=== PATIENT | female | born 1955 | race Caucasian/White ===

== ENCOUNTER → 2021-10-01 08:43 | Outpatient (CLI) | payer MEDICARE, SELFPAY ==
[2021-10-01 20:26] LABS: SARS-CoV-2 RNA PCR Negative
== END ==
PROVIDERS: PCP Physician Assistant; Visit Provider Physician Assistant
DX: R50.9 Fever, unspecified (principal); Z20.822 Contact with and (suspected) exposure to COVID-19
CPT/HCPCS: C9803; U0003; U0005

== ENCOUNTER 2021-12-04 06:32 | Outpatient (CLI) | payer MEDICARE, SELFPAY ==
--- NOTE | ~2021-12-04 | MR_ITS ---
EXAMINATION: MR thoracic spine wo con EXAM DATE: 12/04/2021 07:38 INDICATION: Complains of pain in thoracic spine radiating to abdomen . TECHNIQUE: Multi-sequential, multiplanar MR images of the thoracic spine were obtained without contra st. Sagittal T1, T2, T2 fat saturation, axial T2 weighted images reviewed. There is no prior study for comparison. FINDINGS: There is moderate size hemangioma within the T8 vertebral body. Small hemangioma in T12. No suspicious focal marrow signal abnormalities. Thoracic central canal and neural foramen are widely p atent. Mild thoracic disc disease and facet arthropathy. The spinal cord signal intensity and intrins ic morphology is normal. Paraspinal soft tissue is unremarkable. IMPRESSION: Mild thoracic spondylosis without stenosis. Reviewed, dictated and finalized at location B. [employer]PRESENTATIVE
== END 2021-12-04 06:33 | disposition home or self-care (01) ==
PROVIDERS: PCP Physician Assistant; Visit Provider Psychiatry & Neurology Neurology
DX: M54.9 Dorsalgia, unspecified (principal); M47.814 Spondylosis without myelopathy or radiculopathy, thoracic region
CPT/HCPCS: 72146

== ENCOUNTER 2021-12-12 06:34 | Outpatient (CLI) | payer MEDICARE, SELFPAY ==
--- NOTE | 2021-12-15 10:16 | WPDNEUROLOGY ---
Neurology EEG Report General Information Date of Study: 12/12/21 TEST eeg DIAGNOSIS Seizures CONDITION OF RECORDING awake and drowsy EEG NUMBER [id number] CLINICAL HISTORY patient reported about 3 years ago she started having headaches and losing consciousness. She reported she had an abnormal EEG done at [facility] at that particular time. Reported she is still having the same episodes. EEG DESCRIPTION Basic resting occipital frequency consists of medium voltage 8 to 9 hertz per 2nd alpha admixed with low-voltage 15 to 18 hertz per 2nd beta. Bilateral, waxing and waning alpha rhythm is seen admixed with beta activity during drowsiness. Photic stimulation produced normal drive. Hyperventilation not done. Non paroxysmal. Nonfocal. Nonlateralizing. IMPRESSION No significant abnormalities noted
== END 2021-12-12 06:35 | disposition home or self-care (01) ==
PROVIDERS: PCP Physician Assistant; Visit Provider Psychiatry & Neurology Neurology
DX: R56.9 Unspecified convulsions (principal)
CPT/HCPCS: 95816

== ENCOUNTER 2022-01-21 06:35 | Outpatient (CLI) | payer MEDICARE, SELFPAY ==
--- NOTE | ~2022-01-21 | MR_ITS ---
EXAMINATION: MR knee RT wo con DATE: 01/21/2022 08:04 INDICATION: Right knee pain TECHNIQUE: Magnetic resonance imaging (MRI) of the right knee was performed without intravenous contr ast. Sequences included coronal PD-weighted FSE, coronal PD-weighted FS FSE, sagittal T2-weighted FS E, sagittal PD-weighted FS FSE and axial PD weighted fat saturated FSE. COMPARISON: None. FINDINGS: Medial compartment: Complex tear involving the inner half the junction of the body and posterior horn of the medial menis cus. Partial-thickness chondral ulceration along the anterior weightbearing medial femoral condyle an d anterolateral aspect of the medial tibial plateau without degenerative subchondral changes. Lateral compartment: Lateral meniscus is normal. Partial-thickness chondral fissure at the central aspect of the lateral t ibial plateau which appears to involve at least 50% the cartilage thickness but without degenerative subchondral changes. Shallow chondral surface regularity along the anterior weightbearing lateral fem oral condyle. Patellofemoral compartment: Deep chondral fissuring with underlying cystlike changes at the central aspect of the medial patellar facet. Small central subchondral osteophyte at the inferior aspect of the medial trochlea suggesting overlying high-grade chondromalacia however the margins of the cartilage are poorly delineated at th is location due to oblique profiling on the coronal and axial images and small amount of motion blurr ing on the sagittal images. Ligaments and tendons: Anterior and posterior cruciate ligaments are normal. The medial collateral ligament and fibular aria ateral ligament complex are normal. The extensor mechanism is normal. The visualized medial and later al hamstring tendons as well as the iliotibial band are normal. Fluid: Small right knee joint effusion at the suprapatellar pouch. No loose osteochondral bodies identified. Small Martin's cyst. Osseous/other: No fracture. 7 x 5 x 5 mm T2 hyperintense lesion along the posterior medial supracondylar femur near the footplate of the medial head of the gastrocnemius muscle. IMPRESSION: 1. Complex medial meniscal tear. 2. Mild tricompartmental osteoarthritis with regions of high-grade chondral malacia in the patellofem oral compartment and moderate grade chondral malacia in the medial and lateral compartments. 3. Small right knee joint effusion and small Martin's cyst. 4. Nonspecific 7 x 5 x 5 mm T2 hyperintense lesion at the posterior medial supracondylar femur. Appea hitesh suggestive of small enchondroma but would recommend correlation with plain radiographs to asses s for either chondroid matrix or any aggressive features. Reviewed, dictated and finalized at location A. IMPRESSION: 1. Complex medial meniscal tear. 2. Mild tricompartmental osteoarthritis with regions of high-grade chondral mal acia in the patellofemoral compartment and moderate grade chondral malacia in t he medial and lateral compartments. 3. Small right knee joint effusion and small Martin's cyst. 4. Nonspecific 7 x 5 x 5 mm T2 hyperintense lesion at the posterior medial supr acondylar femur. Appearance suggestive of small enchondroma but would recommend correlation with plain radiographs to assess for either chondroid matrix or an y aggressive features.
== END 2022-01-21 06:36 | disposition home or self-care (01) ==
PROVIDERS: PCP Physician Assistant; Visit Provider Orthopaedic Surgery
DX: S83.231A Complex tear of medial meniscus, current injury, right knee, initial encounter (principal); M25.761 Osteophyte, right knee; M17.11 Unilateral primary osteoarthritis, right knee; M25.461 Effusion, right knee; M71.21 Synovial cyst of popliteal space [Baker], right knee
CPT/HCPCS: 73721

== ENCOUNTER 2022-02-05 08:26 | Outpatient (CLI) | payer MEDICARE, SELFPAY ==
--- NOTE | 2022-02-05 08:33 | ECG_ITS ---
Measurements Intervals [place] Rate: 71 P: 61 SD: 149 QRS: -13 QRSD: 128 T: 64 QT: 422 QTc: 460 Interpretive Statements SINUS RHYTHM MODERATE INTRAVENTRICULAR CONDUCTION DELAY [110+ ms QRS DURATION] LEFTWARD AXIS ABNORMAL ECG NO PREVIOUS ECG AVAILABLE FOR COMPARISON Electronically Signed On 02-05-2022 16:54:24 CDT by Yifan Whitaker M.D.
[2022-02-05 09:12] LABS: Anion Gap 3 mmol/L (8-16); Blood Urea Nitrogen 15 mg/dL (7-17); Calcium 9.2 mg/dL (8.4-10.2); Carbon Dioxide 33 mmol/L (22-30); Chloride 104 mmol/L (98-107); Estimated Glomerular Filt Rate 55; Glucose 114 mg/dL (65-110); Potassium 4.1 mmol/L (3.4-5.0); Sodium 140 mmol/L (137-145)
== END 2022-02-05 08:27 | disposition home or self-care (01) ==
PROVIDERS: Anesthesiology; PCP Physician Assistant; Visit Provider Orthopaedic Surgery
DX: Z01.818 Encounter for other preprocedural examination (principal); Z51.81 Encounter for therapeutic drug level monitoring; Z79.899 Other long term (current) drug therapy; I45.89 Other specified conduction disorders; I10 Essential (primary) hypertension
CPT/HCPCS: 36415; 80048; 93005

== ENCOUNTER 2022-02-09 01:21 | Day surgery (SDC) | payer MEDICARE, SELFPAY ==
[2022-02-04 11:24] VITALS: BMI 32.3
--- NOTE | 2022-02-04 11:56 | PC.NURSE ---
Report to the Outpatient Waiting Room, entrance under the green pavilion located off [facility], at time _10:00AM on date _02/09/22 . OR Time: _12:00PM . - You and your visitor will be asked a series of questions to screen for COVID 19 for your protection. - A mask is required within the hospital. Preoperative COVID Testing Requirements: No COVID Test needed if: (proof is required; if not received patient will have Rapid Test prior to entry) - Patient has received COVID Vaccine at least 14 days prior to procedure date or - Patient has positive COVID test result within last 90 days of surgery date. COVID Test needed if above criteria is not met If not COVID vaccinated a COVID test must be conducted within 72 hours of surgery and patient is asked to isolate self from time of testing until procedure. You will go to the [facility] for your COVID testing. The [facility] is located at the corner of [address] from [facility]. You will only be called if COVID results are positive and your surgeon may reschedule your elective surgery date. Patients may have clear liquids (water, carbonated beverages, clear teas, apple juice) until 3 hours prior to surgery with a maximum of 20 ounces. - No food from midnight until time of surgery - Infants may have breast milk until 4 hours before surgery, infant formula 6 hours prior to surgery. - Children will be allowed to drink immediately following surgery. If applicable, please bring a bottle or sippy cup to assist with drinking. Juice, water, soda, and popsicles are readily available. For infants on formula, please bring formula the day of surgery. Pacifiers are allowed. Take the following medications with a SIP of water the morning of surgery: ___SYMBICORT, ALBUTEROL INHALER OR NEBULIZER NEEDED, CITALOPRAM Medications to discontinue per physician HOLD MELOXICAM 7 DAYS PRE-OP-LAST DOSE 02/02/22, ALL VITAMINS/SUPPLEMENTS 3 DAYS PRE-OP-LAST DOSE 02/05/22 _ Please no make-up, nail chinese, hairspray, perfume, deodorant, or body powder the day of surgery. No jewelry (including any body piercings) or valuables the day of surgery, leave them at home. Please take a shower or bath the night before, or the morning of, surgery with an antibacterial soap. Wear comfortable, loose fitting clothing. Children are encouraged to wear pajamas. - Jewelry must be removed prior to entering the operating room. Rings and piercings that are not removed may be cut off. - The hospital will not accept responsibility for valuables. - Please leave all valuables, including medications, at home the day of surgery. If you are going home after surgery, a licensed limo driver must drive you home. - NO public transportation without another adult. - We recommend that an adult stay with you for 24 hours following discharge. - We also recommend that you do not drive, make important decision, drink alcoholic beverages, or take any drugs that were not prescribed by your health care provider for at least 24 hours after your discharge time. For Pediatric surgeries, we recommend two adults accompany the child home (only one inside the building at this time). One visitor will be allowed to accompany the patient into the hospital. Patients visitor will be instructed to remain with patient at all times or leave the building. We will allow the visitor to come back to the postoperative area when patient is ready. Follow any additional instructions given to you from your surgeon. Telephone instructions given to ___PATIENT and asked if any additional questions and then verbalized understanding. Patient advised to call surgeon office or pre surgery nurse liaison [phone] if any additional questions.
--- NOTE | 2022-02-06 08:24 | PM.IMHP ---
H&P: HPI History of Present Illness Date/Time: 02/06/22 08:24 66-year-old female patient who presents today for arthroscopy the of her right knee partial meniscectomy. Patient started having symptoms in early December of this year when she was climbing on a bed. She had a severe pain in the medial aspect of knee as well as the infrapatellar region. She was initially seen in the office on 01/14. After initial evaluation she was sent for an MRI scan of her knee which did show prominent tear the medial meniscus. Patient is having rather severe symptoms on a daily basis. She has very minimal arthritic changes in the. Arthroscopy was discussed with her, patient would like to proceed with that and presents today for that. Chief Complaint: Medial meniscus tear right knee Review of Systems Review of Systems: All systems reviewed & are unremarkable except as noted in HPI and below PMFSH Past Medical History Medical History Stenosis of artery of left lower extremity Surgical History Surgical History Status post ablation of accessory bypass tract Family History Family History Father Family history of diabetes mellitus in first degree relative Patient's father is Acute myocardial infarction Mother Family history of diabetes mellitus in first degree relative Patient's mother is Family history of malignant neoplasm of bone Social History Social History Smoking packs per day: 1 Smoking cigarettes per day: 20.0 Years smoked: 30 Smoking pack-years: 30.00 Smoking status: Current every day smoker Tobacco type: cigarettes Alcohol intake: current Substance use: never Spiritual care concerns: No Meds Home Medications and Allergies Home Medications Medication Instructions Recorded Confirmed Type hydrochlorothiazide 12.5 mg capsule 12.5 mg PO QAM 10/22/21 02/04/22 History lovastatin 20 mg tablet 20 mg PO DAILY 10/22/21 02/04/22 History omeprazole 40 mg capsule,delayed 40 mg PO QAM 10/22/21 02/04/22 History release valsartan 40 mg tablet 40 mg PO QAM 10/22/21 02/04/22 History albuterol sulfate 1.25 mg INHALATION Q4H PRN 02/04/22 02/04/22 History albuterol sulfate 2 puff INHALATION Q4-6H PRN 02/04/22 02/04/22 History budesonide-formoterol [Symbicort] 2 puff INHALATION BID 02/04/22 02/04/22 History citalopram 20 mg PO QAM 02/04/22 02/04/22 History meloxicam 15 mg PO DAILY 02/04/22 02/04/22 History metformin 500 mg PO QAM 02/04/22 02/04/22 History multivitamin [Multi-Daily] 1 tablet PO DAILY 02/04/22 02/04/22 History Allergies Allergy/AdvReac Type Severity Reaction Status Date / Time No Known Allergies Allergy Verified 02/04/22 11:10 Exam Narrative: 66-year-old female alert pleasant. She is 5 ft 4 195 lb. Right knee range of motion is from 0-135 degrees. She has pain in the center of the knee with full flexion. She has pain with Walter's testing in the medial aspect of the knee. Mild effusion. Normal stability in the knee. Moderately severe tenderness over the medial joint line and posterior medial joint line. Mild pain with patellofemoral grind. Hip range of motion is full with minimal discomfort in the groin with range of motion. Stinchfield maneuver is negative. No edema in either lower extremity. Resp: Auscultation: clear to auscultation bilaterally Cardio: Rate: regular rate Rhythm: regular rhythm Assessment and Plan Additional Plan 66-year-old female who has a tear of the medial meniscus with significant symptoms and physical exam findings. Treatment options were discussed. Patient would like to proceed with arthroscopy with plans to do a partial medial meniscectomy. Patient does have some early arthritis changes in the knee seen on MRI scan may contin
[2022-02-09] VITALS (9 sets, daily range): BP systolic 104–150; BP diastolic 55–73; PULSE 63–82; RESP 16–20; TEMP 36.6–36.8; O2SAT 88–98; BMI 31.4
--- NOTE | 2022-02-09 10:11 | P.PNAN_ITS ---
Anes - Initial Pre Proc Eval Procedure: Operation Date: 02/09/22 12:00 Proposed Procedures p Right Knee Arthroscopic Partial Medial Meniscectomy, Proceed As Indicated - Ran Carney MD Date/Time: 02/09/22 10:11 Surgeon: Ran Carney MD Pre Op Diagnosis: medial meniscus tear right knee Patient Data Age: 66 Gender: F Height: 1.65 m Weight: 88 kg Allergies Allergy/AdvReac Type Severity Reaction Status Date / Time No Known Allergies Allergy Verified 02/04/22 11:10 Home Medications Medication Instructions Recorded Confirmed Type hydrochlorothiazide 12.5 mg capsule 12.5 mg PO QAM 10/22/21 02/04/22 History lovastatin 20 mg tablet 20 mg PO DAILY 10/22/21 02/04/22 History omeprazole 40 mg capsule,delayed 40 mg PO QAM 10/22/21 02/04/22 History release valsartan 40 mg tablet 40 mg PO QAM 10/22/21 02/04/22 History albuterol sulfate 1.25 mg INHALATION Q4H PRN 02/04/22 02/04/22 History albuterol sulfate 2 puff INHALATION Q4-6H PRN 02/04/22 02/04/22 History budesonide-formoterol [Symbicort] 2 puff INHALATION BID 02/04/22 02/04/22 History citalopram 20 mg PO QAM 02/04/22 02/04/22 History meloxicam 15 mg PO DAILY 02/04/22 02/04/22 History metformin 500 mg PO QAM 02/04/22 02/04/22 History multivitamin [Multi-Daily] 1 tablet PO DAILY 02/04/22 02/04/22 History Results Review: All pre-operative results and documents have been reviewed as part of the pre-operative evaluation. [facility] Past Medical History Medical History (Updated 02/09/22 @ 10:11 by Durga Rivera MD) Asthma Atrial paroxysmal tachycardia COPD (chronic obstructive pulmonary disease) Diabetes Hyperlipidemia Hypertension Stenosis of artery of left lower extremity Surgical History Surgical History Status post ablation of accessory bypass tract Family History Family History Father Family history of diabetes mellitus in first degree relative Patient's father is Acute myocardial infarction Mother Family history of diabetes mellitus in first degree relative Patient's mother is Family history of malignant neoplasm of bone Social History Social History Smoking packs per day: 1 Smoking cigarettes per day: 20.0 Years smoked: 30 Smoking pack-years: 30.00 Smoking status: Current every day smoker Tobacco type: cigarettes Alcohol intake: current Substance use: never Living arrangements: alone Spiritual care concerns: No Anes - Eval Final PreProcedure Day of Procedure 02/09/22 10:11 Results Review: All pre-operative results and documents have been reviewed as part of the pre-operative evaluation. Informed Consent: The patient's anesthetic plan and its attendant risks and benefits were discussed with the patient/family/POA. Questions were solicited and answers provided to the satisfaction of the patient/family/POA.
--- NOTE | 2022-02-09 10:58 | WPDANESEPPF ---
Anes - Initial Pre Proc Eval Procedure: Operation Date: 02/09/22 12:00 Proposed Procedures p Right Knee Arthroscopic Partial Medial Meniscectomy, Proceed As Indicated - Ran Carney MD Date/Time: 02/09/22 10:58 Surgeon: Ran Carney MD Pre Op Diagnosis: medial meniscus tear right knee Patient Data Age: 66 Gender: F Height: 1.65 m Weight: 88 kg Allergies Allergy/AdvReac Type Severity Reaction Status Date / Time No Known Allergies Allergy Verified 02/09/22 10:43 Home Medications Medication Instructions Recorded Confirmed Type hydrochlorothiazide 12.5 mg capsule 12.5 mg PO QAM 10/22/21 02/09/22 History lovastatin 20 mg tablet 20 mg PO DAILY 10/22/21 02/09/22 History omeprazole 40 mg capsule,delayed 40 mg PO QAM 10/22/21 02/09/22 History release valsartan 40 mg tablet 40 mg PO QAM 10/22/21 02/09/22 History albuterol sulfate 1.25 mg INHALATION Q4H PRN 02/04/22 02/09/22 History albuterol sulfate 2 puff INHALATION Q4-6H PRN 02/04/22 02/09/22 History budesonide-formoterol [Symbicort] 2 puff INHALATION BID 02/04/22 02/09/22 History citalopram 20 mg PO QAM 02/04/22 02/09/22 History meloxicam 15 mg PO DAILY 02/04/22 02/09/22 History metformin 500 mg PO QAM 02/04/22 02/09/22 History multivitamin [Multi-Daily] 1 tablet PO DAILY 02/04/22 02/09/22 History Patient hx anesthesia problems: none Family hx anesthesia problems: none Results Review: All pre-operative results and documents have been reviewed as part of the pre-operative evaluation. [facility] Past Medical History Medical History (Updated 02/09/22 @ 10:59 by Juan Miguel Bergeron DO) Asthma Atrial fibrillation Atrial paroxysmal tachycardia COPD (chronic obstructive pulmonary disease) Diabetes Hyperlipidemia Hypertension [place] (obstructive sleep apnea) bipap Seizures recently taken off meds Stenosis of artery of left lower extremity Surgical History Surgical History Status post ablation of accessory bypass tract Family History Family History Father Family history of diabetes mellitus in first degree relative Patient's father is Acute myocardial infarction Mother Family history of diabetes mellitus in first degree relative Patient's mother is Family history of malignant neoplasm of bone Social History Social History Smoking packs per day: 1 Smoking cigarettes per day: 20.0 Years smoked: 30 Smoking pack-years: 30.00 Smoking status: Current every day smoker Tobacco type: cigarettes Alcohol intake: current Substance use: never Living arrangements: alone Spiritual care concerns: No Anes - Eval Final PreProcedure Day of Procedure 02/09/22 10:58 Patient weight: obese Heart: regular rate and rhythm Lungs: clear to auscultation and normal air movement Airway: Mallampati scale class II Neurological: alert and oriented Last oral intake: >/= 8 hours ASA classification: III Emergent: no Anesthetic plan: proceed Anesthesia type and monitoring: general LMA and standard monitoring Results Review: All pre-operative results and documents have been reviewed as part of the pre-operative evaluation. Informed Consent: The patient's anesthetic plan and its attendant risks and benefits were discussed with the patient/family/POA. Questions were solicited and answers provided to the satisfaction of the patient/family/POA.
[2022-02-09 11:08] LABS: Glucose Point of Care 98 mg/dl (65-105)
[2022-02-09] MEDS: LACTATED RINGERS 1,000 ML 30 ML IV CONT (11:09)
[2022-02-09] MEDS: KETOROLAC 15 MG/ML VIAL (*BKC) IV PUSH (11:09)
[2022-02-09] MEDS: ACETAMINOPHEN 500 MG TABLET 1000 MG PO (11:09)
--- NOTE | 2022-02-09 11:22 | WPDHPUPDATE1 ---
History and Physical Update Update Date/Time: 02/09/22 11:22 History and Physical has been reviewed, including an updated exam of the patient. There are NO changes in the patient's condition. Risks, benefits, and alternatives have been discussed and questions answered. Patient agrees to proceed with procedure.
[2022-02-09] MEDS: ceFAZolin 2 GM/D5W 50 ML 2 GM/50 ML BAG IVPB (11:41)
[2022-02-09] MEDS: LIDO 1%/EPINEPHRINE 1:100,000 50 ML VIAL 20 ML INFILTRATE (12:17)
--- NOTE | 2022-02-09 12:22 | W.PM.PROC2 ---
Procedure Note - Detailed Date of Procedure 02/09/22 Pre-op Diagnosis medial meniscus tear right knee Post-op Diagnosis Same (And grade 3 to grade 4 chondromalacia central anterior medial femoral condyle) Procedure Performed Arthroscopic partial medial meniscectomy right knee, debridement delaminating flaps of articular cartilage medial femoral condyle Surgeon Ran Carney MD [employer] Estim[employer] Anesthesia General Description of Procedure Patient was brought to the operating room general anesthesia was administered in the right knee prepped draped usual fashion. She received 2 g of Ancef preoperatively. 1% lidocaine with epinephrine was injected into the portal sites. Superomedial portal placed. Anterior inferior portal placed Mcgregor the medial compartment. There was a substantial area of high-grade grade 3 and grade 4 cartilage loss in the center of the anterior aspect of the weight-bearing portion of medial femoral condyle. This area was approximately 1/2 cm wide and about 2 cm long. There were delaminating flaps of articular cartilage that were loose and unstable. There was a severely macerated tear of the posterior horn of the medial meniscus. Anteromedial portal was placed under direct vision and arthroscopic partial medial meniscectomy was performed resecting the macerated torn portions of the posterior horn of the medial meniscus. This was transitioned at the root and at the midbody. The delaminating flaps of articular cartilage were also gently trimmed with a 3.5 full-radius shaver until there was a stable rim of articular cartilage. The lateral compartment looked normal except for minimal fraying of the inner margin of the lateral meniscus and mild central chondromalacia of the lateral tibial plateau. Femoral articular cartilage looked normal. The patellofemoral joint showed minimal chondromalacia of the patella and the trochlea which were both in good condition overall normal for age. No loose bodies were seen. The portals were closed with 5 0 nylon suture in a soft bulky dressing applied. Estimated Blood Loss 0 Drains No Packing No Pathology None sent Complications No immediate complications Condition Stable Disposition PACU
[2022-02-09 12:55] LABS: Glucose Point of Care 105 mg/dl (65-105)
[2022-02-09] MEDS: oxyCODONE HCL (*CRX) 5 MG TAB IR PO (13:57)
--- NOTE | 2022-02-09 14:42 | SUR.PHASEII ---
PATIENT UNSURE WHERE HER WALKER IS AT HOME. PACU CONCRETE CARPENTER ADAM AWARE. ADAM SUGGESTED I CALL DR. GATES'S OFFICE TO ASK FOR A SCRIPT TO BE SENT IN TO PHARMACY FOR PATIENT.
--- NOTE | 2022-02-09 14:59 | SUR.PHASEII ---
DR. GATES ORDERED PHYSICAL THERAPY FOR PATIENT BEFORE LEAVING. PT CALLED AND WILL BE ABLE TO DO TRAINING WITH A WALKER. DEMIAN IN DR. GATES'S OFFICE CALLED JENNIFER MANCINI TO [facility].
--- NOTE | 2022-02-09 15:01 | SUR.PHASEII ---
PATIENT DRESSED WAITING FOR PT.
--- NOTE | 2022-02-09 15:17 | SUR.PHASEII ---
PHYSICAL THERAPIST JAKY HERE TO TRAIN PATIENT WITH WALKER.
--- NOTE | 2022-02-09 15:39 | SUR.PHASEII ---
ADAM SPOKE TO DEMIAN AT DR. GATES'S OFFICE WHO SAID PATIENT CAN GO HOME. PATIENT'S FRIEND WILL GET HER HOME WALKER FOR HER.
== END 2022-02-09 15:38 | disposition home or self-care (01) ==
PROVIDERS: PCP Physician Assistant; Visit Provider Orthopaedic Surgery
PROC: (CPT 29870; principal; 2022-02-09 12:00)
DX: S83.241A Other tear of medial meniscus, current injury, right knee, initial encounter (principal); M94.261 Chondromalacia, right knee; X50.0XXA Overexertion from strenuous movement or load, initial encounter; J44.9 Chronic obstructive pulmonary disease, unspecified; I10 Essential (primary) hypertension; E11.9 Type 2 diabetes mellitus without complications; E78.5 Hyperlipidemia, unspecified; I48.91 Unspecified atrial fibrillation; I47.1 Supraventricular tachycardia; G47.33 Obstructive sleep apnea (adult) (pediatric); G40.909 Epilepsy, unspecified, not intractable, without status epilepticus; Z79.51 Long term (current) use of inhaled steroids; Z79.84 Long term (current) use of oral hypoglycemic drugs; F17.210 Nicotine dependence, cigarettes, uncomplicated; E66.9 Obesity, unspecified; Z68.31 Body mass index [BMI] 31.0-31.9, adult
CPT/HCPCS: 29881; 36415; 80048; 82948; 93005; 97161; A9270; J0171; J0690; J1100; J1885; J2250; J2405; J2704; J3010; J7120

== ENCOUNTER 2024-09-09 07:31 | Outpatient (CLI) | payer MEDICARE, SELFPAY ==
--- NOTE | ~2024-09-09 | MR_ITS ---
MRI of the left foot CLINICAL HISTORY: Pain TECHNIQUE: Axial proton-density and proton-density fat-sat images, sagittal T1-weighted and STIR imag es, and coronal T1-weighted and STIR images were performed. FINDINGS: No acute fracture or dislocation seen. Possible chronic healed fracture deformity the dista l phalanx of the great toe. There is hallux valgus with minimal degenerative change of the first MTP joint. Remaining joint spaces are intact. No significant joint effusion. Flexor and extensor tendons are intact. No definite intermetatarsal bursitis or Alfaro's neuroma. Int rinsic musculature of the foot is unremarkable. No soft tissue mass or fluid collection seen. Plantar fascia intact. IMPRESSION: No acute abnormality evident. Suspected healed fracture deformity of the distal pharynx of the great toe. Hallux valgus with mild degenerative change at the first MTP joint region. Reviewed, dictated and finalized at [facility]. GER PIPELINE
== END 2024-09-09 07:32 | disposition home or self-care (01) ==
LOC: MICIMG 07:32
PROVIDERS: PCP Physician Assistant; Visit Provider Orthopaedic Surgery
DX: M79.672 Pain in left foot (principal); G89.29 Other chronic pain; M20.12 Hallux valgus (acquired), left foot
CPT/HCPCS: 73718

== ENCOUNTER 2024-09-19 06:58 | Outpatient (CLI) | payer MEDICARE, SELFPAY ==
[2024-09-19 07:35] LABS: Basophils Absolute Auto 0.1 K/mm3 (0.0-0.1); Basophils Percent Auto 0.5 % (0.2-1.2); Eosinophils Percent Auto 0.4 % (0-4.4); Hemoglobin 16.1 g/dL (12.0-15.0); Immature Granulocyte Absolute 0.04 K/mm3 (0.00-0.031); Immature Granulocyte Percent A 0.4 % (0-0.5); Lymphocytes Percent Auto 22.9 % (18.3-44.2); Mean Corpuscular HGB Conc 33.5 g/dl (32-36); Mean Corpuscular Volume 92.5 fl (80-100); Mean Platelet Volume 9.6 fl (7.4-10.4); Monocytes Absolute Auto 0.9 K/mm3 (0.1-0.6); Monocytes Percent Auto 9.6 % (2.6-8.5); Neutrophils Absolute Auto 6.4 K/mm3 (1.3-6.7); Neutrophils Percent Auto 66.2 % (45.5-73.1); Platelet Count Result 265 k/mm3 (150-375); Red Blood Count 5.19 M/mm3 (4.2-5.4); White Blood Count 9.6 K/mm3 (4.5-10.0)
[2024-09-19 07:46] LABS: Hemoglobin A1C 5.8 % (<5.7)
[2024-09-19 07:54] LABS: Alanine Aminotransferase 18 U/L (6-35); Albumin Level 4.1 g/dL (3.5-5.1); Alkaline Phosphatase 69 U/L (38-126); Anion Gap 0 mmol/L (4-12); Aspartate Amino Transferase 25 U/L (14-36); Bilirubin,Total 0.6 mg/dL (0.2-1.3); Blood Urea Nitrogen 21 mg/dL (7-17); Calcium 8.9 mg/dL (8.4-10.2); Carbon Dioxide 33 mmol/L (22-30); Chloride 103 mmol/L (98-107); Cholesterol 198 mg/dL (0-200); Estimated Glomerular Filt Rate 55; Glucose 111 mg/dL (65-110); HDL Direct 96 mg/dL; Potassium 3.6 mmol/L (3.4-5.0); Sodium 136 mmol/L (137-145); Triglycerides 93 mg/dL (<150)
[2024-09-19 08:04] LABS: LDL Cholesterol Direct 78 mg/dL
== END 2024-09-19 06:59 | disposition home or self-care (01) ==
LOC: ANHLAB 07:00
PROVIDERS: PCP Physician Assistant; Visit Provider Physician Assistant
DX: R73.03 Prediabetes (principal); E78.5 Hyperlipidemia, unspecified; Z79.891 Long term (current) use of opiate analgesic
CPT/HCPCS: 36415; 80048; 80061; 80076; 83036; 83525; 84439; 84443; 85025

== ENCOUNTER 2025-02-13 07:39 | Outpatient (CLI) | payer MEDICARE, SELFPAY ==
--- NOTE | ~2025-02-13 | US_ITS ---
EXAMINATION: US carotid duplex BI DATE: 02/13/2025 09:04 INDICATION: TIA. Dizziness. TECHNIQUE: Grayscale, color Doppler, and pulsed Doppler images of the cervical carotid arteries were obtained. The degree of vessel stenosis is placed in one of the following categories: normal, <50%, 5 0-69%, >=70% but less than near-occlusion, near-occlusion, or total occlusion. Note that percent sten osis relative to normal distal artery lumen diameter is indirectly measured from velocity measurement s as described by Parminder, et al. Radiology 2003; 229:340-346. Notes: Normal: Peak systolic velocity <125 centimeters/sec and no plaque <50%. Peak systolic velocity <125 ( EDV <40; ICA/CCA PSV ratio <2.0; used these factors only a tandem lesions or low cardiac output or co ntralateral disease) 50-69 %: PSV 125-230 (EDV 40-100; ratio 2-4) >= 70% but less than near occlusion: PSV greater than 230 (EDV > 100; ratio> 4.0) Near Occlusion: PSV that is variable; markedly narrowed lumen Occlusion: Absent flow on color/spectral Doppler and no lumen on nair scale. COMPARISON: None. FINDINGS: RIGHT: The right common carotid artery (CCA) peak systolic velocity (PSV) is 36 cm/s. The right internal car otid artery (ICA) PSV is 39 cm/s. The right ICA end-diastolic velocity (EDV) is 8.6 cm/s. The right I CA/CCA PSV ratio is 3. The external carotid artery (ECA) PSV is 76 cm/s. There is antegrade flow in t he right vertebral artery. LEFT: The left CCA PSV is 44 cm/s. The left ICA PSV is 64 cm/s. The left ICA EDV is 15 cm/s. The left ICA/C CA PSV ratio is 1.5. The ECA PSV is 98 cm/s. There is antegrade flow in the left vertebral artery. IMPRESSION: 1. Less than 50% stenosis in the right internal carotid artery by sonographic criteria. 2. Less than 50% stenosis in the left internal carotid artery by sonographic criteria. Reviewed, dictated and finalized at location A. IMPRESSION: 1. Less than 50% stenosis in the right internal carotid artery by sonographic c damaris. 2. Less than 50% stenosis in the left internal carotid artery by sonographic [place].
--- NOTE | ~2025-02-13 | MR_ITS ---
MRI of the brain Clinical History: Multiple sclerosis Technique: Axial and sagittal T1-weighted images were acquired. These were followed by axial T2-weigh nedra, diffusion weighted, gradient, and FLAIR images. Following intravenous administration of 15 cc Pr oHance gadolinium, T1-weighted fat-sat imaging was performed in the axial and coronal and sagittal pl anes. Findings: There is no acute infarct, intracranial hemorrhage, or mass lesion. There are minimal chron ic microvascular ischemic changes in the periventricular white matter, less likely demyelinating dise ase. Ventricles and subarachnoid spaces are unremarkable. Orbits are unremarkable. Paranasal sinuses and m astoid air cells are essentially clear. Major intracranial flow voids appear intact. Sagittal midline structures are intact. No abnormal postcontrast enhancement identified. IMPRESSION: Minimal chronic microvascular ischemic change, otherwise unremarkable exam. No distinct evidence for demyelinating disease. Reviewed, dictated and finalized at location .
--- OUTSIDE RECORDS SUMMARY | 2025-02-13 07:42 | XMS_ITS | Clinical Summary ---
Author Organization [facility] Address [address] [place] [address] Care Team Providers Care Freelance Translator Name Role Phone Zachary New MD Primary Care Provider [phone] Source Comments [facility],non-owned Affiliates and Associated Physician Practices is amultiple site organization consisting of ambulatory clinics and hospital sitesin [place], [place], [place] and [place]. This disclosure is being madepursuant to the Care Everywhere program and may not contain all information available regarding this patient. Last updated 18.[facility] [email or web address] Allergies No known active allergies Medications * Be aware that medications may not be up to date on this document. Alwaysverify current medications with the patient. albuterol HFA (VENTOLIN HFA) 108 (90 BASE) MCG/ACT inhaler 09/07/2016 Active dilTIAZem coated beads 24hr (CARTIA XT) 120 MG capsule 10/09/2016 Active lovastatin (MEVACOR) 20 MG tablet 10/09/2016 Active Cholecalciferol (VITAMIN D3) 88777 UNITS capsule 10/09/2016 Activ e omeprazole (PRILOSEC) 40 MG capsule 10/09/2016 Active HYDROcodone-acetam inophen (NORCO) 5-325 MG tablet 10/09/2016 Act edu citalopram (CELEXA) 20 MG tablet 10/09/2016 Active Active Problems No known active problems Social History Tobacco Use Types Packs/Day Years Used Date Smoking Tobacco: Some Days Cigarettes Smokeless Tobacco: Never Tobacco Cessation:Ready to Q uit: Yes; Counseling Given: No Alcohol Use Standard Drinks/Week Comments Yes 0 (1 standard drink = 0.6 oz pur e alcohol) Comments Unknown Sex and Gender Information Value Date Recorded Sex Assigned at Not on file 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 Gender Identity Not on file Sexual Orientation Not on file Last Filed Vital Signs Vital Sign Reading Time Taken Comments Blood Pressure - - Pulse - - Temperature - - Respiratory Rate - - Oxygen Saturation - - Inhaled Oxygen Concentration - - Weight 89.4 kg (197 lb) 02/08/2019 2:11 PM CDT Height 162.6 cm (5' 4 ) 02/08/2019 2:11 PM CDT Body Mass Index 33.81 02/08/2019 2:11 PM CDT Plan of Treatment Health Maintenance Due Date Last Done Comments BONE DENSITY TESTING 1954 COLOGUARD (AGES 45-75) - COL ON CA SCREENING 1954 COLON MONITORING 1954 COLONOSCOPY - COLON CA SCREENING 1954 CT COLONOGRAPHY - COLON CA SCREENING 1954 Colorectal Cancer Screening 1954 FIT - COLON CA SCREENING 1954 FLEX SIG - COLON CA SCREENING 1954 MAMMOGRAM 1954 HEPATITIS C SCREENING 03/14/1972 DTAP/TDAP/TD VACCINES (1 - Tdap) 1973 PNEUMOCOCCAL VACCINE 50+ (1 of 2 - PCV) 1973 ZOSTER VACCINE (1 of 2) 2004 SCREENING FOR DIABETES 02/08/2019 COVID-19 VACCINE ( - 2023-2 5 season) 2024 DEPRESSION SCREENING 10/25/2024 INFLUENZA VACCINE (Season Ended) 2025 08/13/20 15 Respiratory Syncytial Virus (RSV) Vaccine Pt: or over 60 yrs (1 - 1-dose 75+ series) 2029 HEPATITIS B VACCINE Aged Out No longe r eligible based on patient's age to complete this topic HIB VACCINE Aged Out No longer eligi ble based on patient's age to complete this topic HPV VACCINE Aged Out No longer eligi ble based on patient's age to complete this topic MENINGOCOCCAL (Group B) VACC INE SHARED DECISION-MAKING Aged Out No longer eligibl e based on patient's age to complete this topic MENINGOCOCCAL GROUPS A/C/Y/W VACCINE Aged Out No longer eligible b ased on patient's age to complete this topic Insurance [facility] Care Teams Freelance Translator Relationship Specialty Start Date End Date Zachary New MD [address] [place] [address] PCP - General 11/29/12
--- OUTSIDE RECORDS SUMMARY | 2025-02-13 07:42 | XMS_ITS | Clinical Summary ---
Author Organization [facility] Address [address] [place] [address] Phone Care Team Providers Care Optical Mechanic Name Role Phone Nahed Ceballos Primary Care Provider Allergies No known active allergies Medications lovastatin (MEVACOR) 20 MG Tablet Take 20 mg by mouth daily. Active omeprazole (PRILOSEC) 40 MG CAPSULE DELAYED RELEASE Take 40 mg by mouth daily. 01/05/2019 Active citalopram (CELEXA) 20 MG Tablet Take 20 mg by mouth daily. Active carvedilol (COREG) 12.5 MG Tablet Take 12.5 mg by mouth daily. 03/04/2019 Active hydroCHLOROthiaz solo 12.5 MG Tablet Take 12.5 mg by mouth daily. 3 02/06/2019 Active levETIRAcetam (KEPPRA) 500 MG Tablet Take 500 mg by mouth 2 times daily. 03/08/2019 Active ergocalciferol (VITAMIN D) 17794 UNIT Capsule Take 1 Cap by mouth once a week. 03/03/2019 Active magnesium oxide (MAG-OX) 400 MG Tablet Take 40 mg by mouth 2 times daily. 03/04/2019 Active tiZANidine (ZANAFLEX) 2 MG Tablet Take 1 Tab by mouth 3 times daily. 90 Tab 03/13/2019 Active naproxen (NAPROSYN) 500 MG Tablet Take 1 Tab by mouth 2 times daily (with meals). 60 Tab 2 03/13/2019 Active Active Problems Problem Noted Date Diagnosed Date Lumbar facet arthropathy 03/13/2019 Sacroiliac joint dysfunction of both sides 03/13 Numbness and tingling of foot 03/13/2019 Social History Tobacco Use Types Packs/Day Years Used Date Smoking Tobacco: Never Assessed Comments Unknown Sex and Gender Information Value Date Recorded Sex Assigned at Not on file Legal Sex Female 7:29 PM CDT Gender Identity Not on file Sexual Orientation Not on file Last Filed Vital Signs Vital Sign Reading Time Taken Comments Blood Pressure 135/76 03/24/2019 8:30 AM CDT Pulse 68 03/24/2019 8:30 AM CDT Temperature 36.2 C (97.1 F) 03/24/2019 8:30 AM CDT Respiratory Rate 17 03/24/2019 8:30 AM CDT Oxygen Saturation 97% 03/24/2019 8:30 AM CDT Inhaled Oxygen Concentration - - Weight - - Height - - Body Mass Index - - Plan of Treatment Health Maintenance Due Date Last Done Comments Hepatitis C Virus (HCV) Screening 1954 Colonoscopy 1999 Colorectal Cancer Screening 1999 Cologuard 2004 Immunochemical Fecal Occult Blood 2004 Zoster Immunization (1 of 2) 2004 Pneumococcal Immunization (5 0+ years) (2 of 2 - PCV) 10/26/2013 10/26/2012, 10/25/2011 Influenza Immunization (#1) 06/25/202407/26, 08/03/2015, 10/26/2012 SARS-COV-2 Immunization (3 - season) 2024 01/18/2021, 12/19/2020 Respiratory Syncytial Virus (RSV) Immunization (Adult) (1 - 1-dose 75+ series) 2029 Pneumococcal Immunization Combined Discontinued 10/26/2012, 10/25/2011 DTaP/Tdap/Td Immunization Discontinued 09/04/2015 TdaP Immunization Completed 09/04/2015 Hepatitis B Immunization Aged Out No longer eligible based on patient's age to complete this topic Meningococcal Immunization (ACWY) Aged Out No longer eligible based on patient's age to complete this topic Rotavirus Immunization Aged Out No lo nger eligible based on patient's age to complete this topic Insurance MEDICAID [employer] Care Teams Optical Mechanic Relationship Specialty Start Date End Date Nahed Ceballos PA [address] [address] PCP - General Adult Medicine 03/01/19
--- OUTSIDE RECORDS SUMMARY | 2025-02-13 07:42 | XMS_ITS | CONTINUITY OF CARE DOCUMENT ---
Author Name john swapnildarrin Address Unknown Organization [facility] Address [address] [place] [address] Phone [phone] Care Team Providers Care Locum Tenens Name Role Phone Nora WHEELER, Gutierrez Unavailable [phone] DEYTO PA-C, DERREK Unavailable DEYTO PA-C, DERREK Unavailable PROBLEMS Condition Status Date Provider Notes Pre-procedural laboratory examination active Marco A Velasco RN Tobacco dependence, continuous active Caesar Castro MD Diabetes mellitus, borderline active Caesar Castro MD FAMILY HISTORY OF HEART DISEASE active Caesar Castro MD HTN essential;neg dupelx active Caesar crowe MD Hypercholesterolemia active Charissa Uriartenenfe lder Obese active Caesar Castro MD Syncope active Joaquin Reynolds Edema;oconnell thurnre? completed - Caesar Castro MD SLEEP APNEA; active Caesar Castro MD Dyspnea on exertion completed - Caesar Castro MD ISCHEMIA; completed - Caesar Castro MD nml cor Vitamin D deficiency active Caesar Jansen Cardiomyopathy;no cad by cath completed 09/05/18 - Caesar Castro MD lowest ef 40 COPD active Caesar Castro MD Pulmonary hypertension, secondary completed - Caesar Castro MD Groin pain, right completed - Caesar Castro MD RF ablation for SVT/AF;nml tsh active Caesar Castro MD S/P Medtronic (MRI Safe) REVEAL/LinQ completed - Caesar Castro MD IRON DEFICIENCY active Caesar Castro MD Microvascular angina active Caesar Jansen Aortic atherosclerosis completed 4 - Gabriel Nacht Screening completed - Gabriel Mesa Abdominal bloating completed - Caesar Castro MD PVC's active Caesar Castro MD SEIZURE disorder active Caesar Castro MD Sustained ventricular tachycardia active Joaquin Reynolds CAD, calcium score 130 in 2020 active Gabriel Mesa Chest pain completed - Caesar Castro MD Preoperative cardiovascular completed 2017 - Caesar Castro MD Atrial flutter;ablatted active Joaquin Reynolds Exposure to SARS-associated coronavirus;neg igg active Caesar Castro MD Diastolic dysfunction active Caesar Castro MD lowest 40 Vitamin D deficiency- on meds completed 14/07/14 - Caesar Castro MD Goiter;nml tsh active Caesar Castro MD BACK PAIN;CHRONIC active Caesar Castro MD Venous stenoisis active Caesar Castro MD Diverticulosis, colon active Caesar Castro MD Carotid bruits, bilateral active Joaquin Reynolds Chest pain-type to be determined active Lakesha Garcia [employer] Leg pain, bilateral active Wilmer Monet Lower extremity edema active Wilmer Monet Dyspnea on exertion active Wilmer Monet ENCOUNTERS Date Type Provider Location Encounter Diag nosis - In-person encounter Office Visit Gutierrez Melendez MD [facility] - In-person encounter Office Visit Gutierrez Melendez MD [facility] Leg pain, bilateralLower extremity edemaDyspnea on exertion - In-person encounter Office Visit Gutierrez Melendez MD [facility] Chest pain-type to be determined - In-person encounter Office Visit Gutierrez Melendez MD [facility] Atrial flutter;ablatted - In-person encounter Office Visit Gutierrez Melendez MD [facility] Sustained ventricular tachycardiaCarotid bruits, bilateral - In-person encounter Office Visit Buddy Galindo MD [facility] Aortic atherosclerosisScreeningCAD, calcium score 130 in 2019 - In-person encounter Office Visit Caesar Castro MD [place] Edema;oconnell thurnre?S/P Medtronic (MRI Safe) REVEAL/LinQAtrial flutter;ablattedVitamin D deficiency- on medsGoiter;nml tshBACK PAIN;CHRONICVenous stenoisisDiverticulosis, colon - In-person encounter Office Visit Caesar Castro MD [place] [facility] SyncopeCardiomyopathy;no cad by cathPulmonary hypertension, secondaryChest painPreoperative cardiovascularExposure to SARS-associated coronavirus;neg iggDiastolic dysfunction - In-person encounter Office Visit Gutierrez Melendez MD [place] Atrial flutter;ablatted - In-person encounter Office Visit Gutierrez Melendez MD [facility] - In-person encounter Office Visit Caesar Castro MD [place] PVC'sCAD, calcium score 130 in 2019 - In-person encounter Office Visit Caesar Castro MD [place] Tobacco dependence, continuousISCHEMIA;Cardiomyop athy;no cad by cathRF ablation for SVT/AF;nml tshAbdominal bloatingSEIZURE disorder - In-person encounter Office Visit Caesar Castro MD [place] Screening - In-person encounter Office Visit Buddy Galindo MD [facility] - In-person encounter Office Visit Caesar Castro MD [place] COPDIRON DEFICIENCYMicrovascular angina - In-person encounter Office Visit Gloria Gonzales MD [facility] - In-person encounter Office Visit Caesar Castro MD [place] [facility] Groin pain, right - In-person encounter Office Visit Caesar Catsro MD [facility] Dyspnea on exertion - In-person encounter Office Visit Caesar Castro MD [facility] Oncology HTN essential;neg dupelxEdema;oconnell thurnre?ISCHEMIA;Vitamin D deficiencyCardiomyopathy;no cad by cath - In-person encounter Office Visit Caesar Castro MD [place] [facility] - In-person encounter Office Visit Caesar Castro MD [facility] Tobacco dependence, continuousDiabetes mellitus, borderlineFAMILY HISTORY OF HEART DISEASEHTN essential;neg dupelxHypercholesterolemiaObe seEdema;oconnell thurnre?SLEEP APNEA; VITAL SIGNS Date Observation Value Provider Body Mass Index (Ratio) 30.45 kg/m2 Wilmer Monet blood pressure, diastolic 65 mm[Hg] Ca lulú [place] blood pressure, systolic 131 mm[Hg] [facility] manohar Vaughan oxygen saturation, oximetry 99 % Yessi Vaughan pulse rate 73 /min Yessi jansen blood pressure, cuff size large Nathalie chino Vaughan respiratory rate E&M 16 /min Rosalba Vaughan weight E&M 183 [lb_av] Yessi Hernandez jansen height E&M 65 [in_i] Yessi Ng d blood pressure, cuff size regular Ke rri Gruenenfelder blood pressure, diastolic 86 mm[Hg] Ke rri Gruenenfelder blood pressure, systolic 152 mm[Hg] Ker ri Gruenenfelder oxygen saturation, oximetry 93 % Charissa Gruenenfelder respiratory rate E&M 12 /min Charissa G ruenenfelder pulse rate 85 /min Charissa Gruenenfe lder height E&M 65 [in_i] Charissa Gruenenfe lder weight E&M 183 [lb_av] Josselyn Rooseveltgopicharlene in Body Mass Index (Ratio) 30.45 kg/m2 Wilmer Monet blood pressure, diastolic 79 mm[Hg] Ri lulú Thomas blood pressure, systolic 127 mm[Hg] Henry manohar Thomas blood pressure, cuff size large Ri lulú Thomas oxygen saturation, oximetry 98 % Adriana Thomas pulse rate 75 /min Adriana Rogers son weight E&M 183 [lb_av] Adriana Rogers son height E&M 65 [in_i] Adriana Rogers son Body Mass Index (Ratio) 32.61 kg/m2 Talurdes on Rodolfo blood pressure, cuff size large Ke rri Gruenenfelder blood pressure, diastolic 86 mm[Hg] Ke rri Gruenenfelder blood pressure, systolic 152 mm[Hg] Ker ri Gruenenfelder oxygen saturation, oximetry 98 % Charissa Gruenenfelder respiratory rate E&M 16 /min Charissa G ruenenfelder pulse rate 88 /min Charissa Gruenenfe lder weight E&M 196 [lb_av] Charissa Gruenenfe lder height E&M 65 [in_i] Charissa Gruenenfe lder Body Mass Index (Ratio) 32.78 kg/m2 Talurdes on Rodolfo blood pressure, cuff size large Ke rri Gruenenfelder blood pressure, diastolic 74 mm[Hg] Ke rri Gruenenfelder blood pressure, systolic 136 mm[Hg] Ker ri Gruenenfelder oxygen saturation, oximetry 96 % Charissa Gruenenfelder respiratory rate E&M 16 /min Charissa G ruenenfelder pulse rate 80 /min Charissa Gruenenfe er weight E&M 197 [lb_av] Charissa Gruenenfe er height E&M 65 [in_i] Charissa Gruenenfe er Body Mass Index (Ratio) 32.45 kg/m2 Kristine Galindo MD blood pressure, cuff size large Ke rri Gruenenfelder blood pressure, diastolic 80 mm[Hg] Ke rri Gruenenfelder blood pressure, systolic 142 mm[Hg] Ker ri Gruenenfelder oxygen saturation, oximetry 96 % Charissa Gruenenfelder respiratory rate E&M 16 /min Charissa G ruenenfelder pulse rate 80 /min Charissa Gruenenfe lder weight E&M 195 [lb_av] Charissa Gruenenfe lder height E&M 65 [in_i] Charissa Gruenenfe er Body Mass Index (Ratio) 34.44 kg/m2 Dieter Castro MD pulse rate 78 /min Trinity chang blood pressure, diastolic 74 mm[Hg] Cy kam Hazel blood pressure, systolic 157 mm[Hg] Franci jonnathan Hazel blood pressure, cuff size regular Cy kam Hazel oxygen saturation, oximetry 96 % Trinity Hazel respiratory rate E&M 16 /min Trinity Hazel weight E&M 207 [lb_av] Trinity chang height E&M 65 [in_i] Trinity chang Body Mass Index (Ratio) 33.61 kg/m2 Dieter Castro MD blood pressure, diastolic 87 mm[Hg] Cy kam Hazel blood pressure, systolic 147 mm[Hg] Franci Hazel blood pressure, cuff size regular Cy kam Hazel respiratory rate E&M 16 /min Trinity Hazel pulse rate 70 /min Trinity chang oxygen saturation, oximetry 95 % Trinity Hazel weight E&M 202 [lb_av] Trinity chang height E&M 65 [in_i] Trinity chang Body Mass Index (Ratio) 31.78 kg/m2 Don ross Miranda blood pressure, diastolic, standing 77 mm [Hg] Arvin Miranda blood pressure, systolic, standing 148 mm [Hg] Arvin Miranda blood pressure, cuff size regular Caleb lydia Blanc blood pressure, diastolic 75 mm[Hg] Karel rc Miranda blood pressure, systolic 133 mm[Hg] Juliet bright Miranda oxygen saturation, oximetry 97 % Charissa Blanc respiratory rate E&M 18 /min Charissa robertson pulse rate 68 /min Charissa marrero weight E&M 191 [lb_av] Charissa Rochenfe lder height E&M 65 [in_i] Charissa Reyesclaritaleigh lder Body Mass Index (Ratio) 31.65 kg/m2 Don Jean blood pressure, diastolic 77 mm[Hg] Karel Peña blood pressure, systolic 137 mm[Hg] Juliet Peña oxygen saturation, oximetry 94 % Martita Peña respiratory rate E&M 18 /min Deepa Peña pulse rate 67 /min Martita Sutton nson weight E&M 190.2 [lb_av] Martita morenoon height E&M 65 [in_i] Martita Sutton nson Body Mass Index (Ratio) 31.28 kg/m2 Dieter Castro MD blood pressure, cuff size regular Cy kam Hazel blood pressure, diastolic 82 mm[Hg] Shahid Hazel blood pressure, systolic 144 mm[Hg] Franci Hazel oxygen saturation, oximetry 96 % Trinity Hazel respiratory rate E&M 16 /min Trinity Hazel pulse rate 62 /min Trinity Villa l weight E&M 188 [lb_av] Trinity Jungbel l height E&M 65 [in_i] Trinity Campbel l Body Mass Index (Ratio) 30.45 kg/m2 Dieter Castro MD blood pressure, diastolic 80 mm[Hg] Da kingsley Ivette blood pressure, systolic 142 mm[Hg] Dac ia Ivette oxygen saturation, oximetry 97 % Chelsea Ivette respiratory rate E&M 16 /min Chelsea V oss pulse rate 70 /min Chelsea Ivette weight E&M 183 [lb_av] Chelsea Ivette height E&M 65 [in_i] Chelsea Ivette pulse rate #2 72 [place] Tebi blood pressure, ramírez tolic, second observation 86 mm[Hg] Zoraida Tebid blood pressure, syst olic, second observation 145 mm[Hg] Zoraida Tebid oxygen saturation, oximetry 98 % [facility] pulse rate 72 /min [place] Tebi blood pressure, diastolic 86 mm[Hg] Vi ctoria Tebid blood pressure, systolic 145 mm[Hg] Randall jose Tebid pulse rate #2 75 [facility] blood pressure, ramírez tolic, second observation 80 mm[Hg] [facility] blood pressure, syst olic, second observation 136 mm[Hg] [facility] oxygen saturation, oximetry 98 % [facility] pulse rate 75 /min [facility] blood pressure, diastolic 80 mm[Hg] Vi ctoria Tebid blood pressure, systolic 136 mm[Hg] Randall jose Tebid pulse rate #2 80 [facility] blood pressure, ramírez tolic, second observation 79 mm[Hg] [facility] blood pressure, syst olic, second observation 141 mm[Hg] [facility] oxygen saturation, oximetry 98 % [facility] pulse rate 80 /min [facility] blood pressure, diastolic 79 mm[Hg] Vi ctoria Tebid blood pressure, systolic 141 mm[Hg] Randall jose Tebid pulse rate #2 68 [facility] blood pressure, ramírez tolic, second observation 78 mm[Hg] [facility] blood pressure, syst olic, second observation 129 mm[Hg] [facility] oxygen saturation, oximetry 98 % [facility] pulse rate 68 /min [facility] blood pressure, diastolic 78 mm[Hg] Vi ctoria Tebid blood pressure, systolic 129 mm[Hg] Randall jose Tebid pulse rate #2 85 [facility] blood pressure, ramírez tolic, second observation 88 mm[Hg] [facility] blood pressure, syst olic, second observation 123 mm[Hg] [facility] oxygen saturation, oximetry 98 % [facility] pulse rate 85 /min [facility] blood pressure, diastolic 88 mm[Hg] Vi ctoria Tebid blood pressure, systolic 123 mm[Hg] Randall jose Tebid pulse rate #2 69 [facility] blood pressure, ramírez tolic, second observation 86 mm[Hg] [facility] blood pressure, syst olic, second observation 124 mm[Hg] [facility] oxygen saturation, oximetry 98 % [facility] pulse rate 69 /min [facility] blood pressure, diastolic 86 mm[Hg] Vi [facility] Tebid blood pressure, systolic 124 mm[Hg] Randall jose Tebid pulse rate #2 75 [facility] blood pressure, ramírez tolic, second observation 79 mm[Hg] [facility] blood pressure, syst olic, second observation 129 mm[Hg] [facility] oxygen saturation, oximetry 98 % [facility] pulse rate 75 /min [facility] blood pressure, diastolic 79 mm[Hg] Vi ctoria Tebid blood pressure, systolic 129 mm[Hg] Randall mendezia Tebid pulse rate #2 76 [facility] blood pressure, ramírez tolic, second observation 85 mm[Hg] [facility] blood pressure, syst olic, second observation 122 mm[Hg] [facility] oxygen saturation, oximetry 98 % [facility] pulse rate 76 /min [facility] blood pressure, diastolic 85 mm[Hg] Vi [facility] Tebid blood pressure, systolic 122 mm[Hg] Randall [facility]2 75 [place] blood pressure, ramírez tolic, second observation 76 mm[Hg] [facility] blood pressure, syst olic, second observation 113 mm[Hg] [facility] oxygen saturation, oximetry 98 % [facility] pulse rate 75 /min [facility] blood pressure, diastolic 76 mm[Hg] Vi [facility] Ted blood pressure, systolic 113 mm[Hg] Randall [facility] #2 77 [facility] blood pressure, ramírez tolic, second observation 86 mm[Hg] [facility] blood pressure, syst olic, second observation 139 mm[Hg] [facility] oxygen saturation, oximetry 98 % [facility] pulse rate 77 /min [facility] blood pressure, diastolic 86 mm[Hg] [facility], systolic 139 mm[Hg] Randall [facility] pulse [facility] #2 77 [facility] blood pressure, ramírez tolic, second observation 82 mm[Hg] [facility] blood pressure, syst olic, second observation 140 mm[Hg] [facility] oxygen saturation, oximetry 98 % [facility] pulse rate 77 /min [facility] blood pressure, diastolic 82 mm[Hg] [facility], systolic 140 mm[Hg] Randall jose bid pulse rate #2 76 [facility] blood pressure, ramírez tolic, second observation 82 mm[Hg] [facility] blood pressure, syst olic, second observation 138 mm[Hg] [facility] oxygen saturation, oximetry 98 % Zoraida Tebid pulse rate 76 /min [place] Tebid blood pressure, diastolic 82 mm[Hg] Vi ctoria Tebid blood pressure, systolic 138 mm[Hg] Randall jose Tebid pulse rate #2 71 [facility] blood pressure, ramírez tolic, second observation 84 mm[Hg] Zoraida Tebid blood pressure, syst olic, second observation 136 mm[Hg] [facility] oxygen saturation, oximetry 98 % [facility] pulse rate 71 /min [place] Tebid blood pressure, diastolic 84 mm[Hg] Vi mdoria Tebid blood pressure, systolic 136 mm[Hg] Randall jose Tebid pulse rate #2 73 [facility] blood pressure, ramírez tolic, second observation 81 mm[Hg] [facility] blood pressure, syst olic, second observation 135 mm[Hg] [facility] oxygen saturation, oximetry 98 % [facility] pulse rate 73 /min [place] Tebid blood pressure, diastolic 81 mm[Hg] Vi [facility] Tebid blood pressure, systolic 135 mm[Hg] Randall mendezia Tebid pulse rate #2 74 [place] Tebid blood pressure, ramírez tolic, second observation 80 mm[Hg] [place] Tebid blood pressure, syst olic, second observation 151 mm[Hg] Zoraida Tebid oxygen saturation, oximetry 98 % [facility] pulse rate 74 /min [place] Tebid blood pressure, diastolic 80 mm[Hg] Vi mdoria Tebid blood pressure, systolic 151 mm[Hg] Randall jose Tebid pulse rate #2 78 [facility] blood pressure, ramírez tolic, second observation 76 mm[Hg] [place] Tebid blood pressure, syst olic, second observation 142 mm[Hg] [facility] oxygen saturation, oximetry 98 % Zoraida d pulse rate 78 /min [place] d blood pressure, diastolic 76 mm[Hg] Vi ctoria Tebid blood pressure, systolic 142 mm[Hg] Randall jose Tebid pulse rate #2 67 [facility] blood pressure, ramírez tolic, second observation 82 mm[Hg] [facility] blood pressure, syst olic, second observation 136 mm[Hg] [facility] oxygen saturation, oximetry 98 % [place] pulse rate 67 /min [place] blood pressure, diastolic 82 mm[Hg] Vi ctoria Tebid blood pressure, systolic 136 mm[Hg] Randall jose Tebid pulse rate #2 71 [place] blood pressure, ramírez tolic, second observation 88 mm[Hg] [facility] blood pressure, syst olic, second observation 132 mm[Hg] Zoraida d oxygen saturation, oximetry 98 % [place] pulse rate 71 /min [place] blood pressure, diastolic 88 mm[Hg] Vi ctoria Tebid blood pressure, systolic 132 mm[Hg] Randall jose Tebid pulse rate #2 70 [place] blood pressure, ramírez tolic, second observation 86 mm[Hg] [facility] blood pressure, syst olic, second observation 136 mm[Hg] Zoraida d oxygen saturation, oximetry 98 % [place] pulse rate 70 /min [facility] blood pressure, diastolic 86 mm[Hg] Vi ctoria Tebid blood pressure, systolic 136 mm[Hg] Randall jose Tebid Body Mass Index (Ratio) 32.28 kg/m2 Dieter Castro MD pulse rate #2 75 [place] [facility] blood pressure, ramírez tolic, second observation 78 mm[Hg] [facility] blood pressure, syst olic, second observation 136 mm[Hg] [facility] oxygen saturation, oximetry 98 % [facility] pulse rate 75 /min [facility] blood pressure, diastolic 78 mm[Hg] Vi [facility] blood pressure, systolic 136 mm[Hg] Randall jose blood pressure, cuff size regular Ke rri Ericclaritaiehsaket[facility] hospital[facility]ina blood pressure, diastolic 92 mm[Hg] Ke rri [facility] blood pressure, systolic 145 mm[Hg] Curtis elizabeth [facility]ket[facility] oxygen saturation, oximetry 98 % Charissa Kashifst [facility] respiratory rate E&M 18 /min Charissa G nirmalst [facility] pulse rate 74 /min Charissa Rochemoonmere [facility] weight E&M 194 [lb_av] Charissa Melchormoone [facility] height E&M 65 [in_i] Charissa Melchormere [facility] pulse rate #2 67 Zoraida blood pressure, ramírez tolic, second observation 91 mm[Hg] [facility] blood pressure, syst olic, second observation 140 mm[Hg] [facility] oxygen saturation, oximetry 98 % [facility] pulse rate 67 /min [facility] blood pressure, diastolic 91 mm[Hg] Vi ctoria d blood pressure, systolic 140 mm[Hg] Randall jose d pulse rate #2 76 [facility] blood pressure, ramírez tolic, second observation 87 mm[Hg] [facility] blood pressure, syst olic, second observation 132 mm[Hg] [facility] oxygen saturation, oximetry 98 % [facility] pulse rate 76 /min [facility] blood pressure, diastolic 87 mm[Hg] Vi ctoria Tebid blood pressure, systolic 132 mm[Hg] Randall jose Tebid pulse rate #2 72 [facility] blood pressure, ramírez tolic, second observation 104 mm[Hg] [facility] blood pressure, syst olic, second observation 164 mm[Hg] [facility] oxygen saturation, oximetry 98 % [facility] pulse rate 72 /min [facility] blood pressure, diastolic 104 mm[Hg] Vi ctoria Tebid blood pressure, systolic 164 mm[Hg] Randall jose Tebid pulse [facility]2 75 [facility], ram[facility]rez tolic, second observation 95 mm[Hg] [facility] blood pressure, syst olic, second observation 151 mm[Hg] [facility] oxygen saturation, oximetry 98 % [facility] pulse rate 75 /min [facility] blood pressure, diastolic 95 mm[Hg] Vi ctoria Tebid blood pressure, systolic 151 mm[Hg] Randall jose Tebid pulse rate #2 82 [facility] blood pressure, ramírez tolic, second observation 90 mm[Hg] [facility] blood pressure, syst olic, second observation 142 mm[Hg] [facility] oxygen saturation, oximetry 98 % [facility] pulse rate 82 /min [facility] blood pressure, diastolic 90 mm[Hg] Vi ctoria Tebid blood pressure, systolic 142 mm[Hg] Randall jose Tebid pulse rate #2 77 [facility] blood pressure, ramírez tolic, second observation 85 mm[Hg] [facility] blood pressure, syst olic, second observation 145 mm[Hg] [facility] oxygen saturation, oximetry 98 % Zoraida pulse rate 77 /min [place] blood pressure, diastolic 85 mm[Hg] Vi ctoria Tebid blood pressure, systolic 145 mm[Hg] Randall jose Tebid pulse rate #2 76 [facility] blood pressure, ramírez tolic, second observation 80 mm[Hg] [facility] blood pressure, syst olic, second observation 160 mm[Hg] [facility] oxygen saturation, oximetry 98 % [facility] pulse rate 76 /min [facility] blood pressure, diastolic 80 mm[Hg] Vi ctoria Tebid blood pressure, systolic 160 mm[Hg] Randall jose Tebid pulse rate #2 69 [place] blood pressure, ramírez tolic, second observation 94 mm[Hg] [facility] blood pressure, syst olic, second observation 115 mm[Hg] [facility] oxygen saturation, oximetry 98 % [place] pulse rate 69 /min [facility] blood pressure, diastolic 94 mm[Hg] Vi ctoria Tebid blood pressure, systolic 115 mm[Hg] Randall jose Tebid pulse rate #2 74 [facility] blood pressure, ramírez tolic, second observation 92 mm[Hg] [facility] blood pressure, syst olic, second observation 144 mm[Hg] [facility] oxygen saturation, oximetry 98 % [facility] pulse rate 74 /min [facility] blood pressure, diastolic 92 mm[Hg] Vi ctoria Tebid blood pressure, systolic 144 mm[Hg] Randall jose Tebid pulse rate #2 73 [facility] blood pressure, ramírez tolic, second observation 84 mm[Hg] [facility] blood pressure, syst olic, second observation 137 mm[Hg] [facility] oxygen saturation, oximetry 98 % [facility] pulse rate 73 /min [facility] blood pressure, diastolic 84 mm[Hg] Vi lauren [facility] blood pressure, systolic 137 mm[Hg] Randall garcia [facility] Body Mass Index (Ratio) 32.45 kg/m2 Kristine Galindo MD weight E&M 195 [lb_av] Buddy Galindo MD blood pressure, cuff size large Corina Smith blood pressure, diastolic 80 mm[Hg] Chelsea Sanches blood pressure, systolic 140 mm[Hg] Tamia Sanches respiratory rate E&M 16 /min Kira Sanches oxygen saturation, oximetry 98 % Kira Sanches pulse rate 76 /min Kira Sanches height E&M 65 [in_i] Kira Sanches Body Mass Index (Ratio) 32.75 kg/m2 Dieter Castro MD blood pressure, diastolic 78 mm[Hg] Karel Peña blood pressure, systolic 148 mm[Hg] Juliet Peña oxygen saturation, oximetry 96 % Martita Peña respiratory rate E&M 18 /min Deepa Peña pulse rate 83 /min Martita ortega weight E&M 196.8 [lb_av] Martita bernabe height E&M 65 [in_i] Martita Tobine shannon Body Mass Index (Ratio) 31.98 kg/m2 Roxanne Gonzales MD blood pressure, diastolic 81 mm[Hg] Karel Peña blood pressure, systolic 145 mm[Hg] Juliet Peña oxygen saturation, oximetry 95 % Martita Peña respiratory rate E&M 18 /min Deepa Peña pulse rate 74 /min Martita ortega weight E&M 192.2 [lb_av] Martita bernabe height E&M 65 [in_i] Martita ortega Body Mass Index (Ratio) 32.45 kg/m2 Dieter Castro MD blood pressure, cuff size regular Ke rri Guanaco blood pressure, diastolic 88 mm[Hg] Ke rri Guanaco blood pressure, systolic 159 mm[Hg] Curtis Blanc oxygen saturation, oximetry 97 % Charissa Blanc respiratory rate E&M 16 /min Charissa robertson pulse rate 81 /min Charissa Ferguson er weight E&M 195 [lb_av] Charissa Ferguson er height E&M 65 [in_i] Charissa Ferguson er blood pressure, diastolic 80 mm[Hg] Karel Peña blood pressure, systolic 134 mm[Hg] Juliet Peña pulse rate 87 /min Martita ortega oxygen saturation, oximetry 98 % Martita Peña respiratory rate E&M 16 /min Deepa Peña Body Mass Index (Ratio) 32.68 kg/m2 Mini Peña weight E&M 196.4 [lb_av] Martita bernabe blood pressure, diastolic 88 mm[Hg] Am nguyen Henry blood pressure, systolic 120 mm[Hg] Telephone nda Henry pulse rate 87 /min Ailyn Henry oxygen saturation, oximetry 97 % Ailyn Henry respiratory rate E&M 16 /min Ailyn Figueroa Body Mass Index (Ratio) 31.12 kg/m2 Florentino Parekh weight E&M 187 [lb_av] Ailyn Figueroa blood pressure, diastolic 70 mm[Hg] Karel Peña blood pressure, systolic 126 mm[Hg] Juliet Peña pulse rate 58 /min Martita ortega oxygen saturation, oximetry 98 % Martita Peña respiratory rate E&M 18 /min Deepa Peña Body Mass Index (Ratio) 32.58 kg/m2 Mini Peña weight E&M 195.8 [lb_av] Martita bernabe height E&M 65 [in_i] Martita ortega ALLERGIES Allergy Name Onset Date Reaction Criticality Status SCOTTIENIYA dizzy Low Criticality active RESULTS Date Observation Value Provider Reference Range Interpretation Location c-reactive protein, quantitative, serum 5.47 mg/L [facility] 0.00-3.00 High activated partial thromboplastin time (aPTT) 24 s [facility] 24-33 prothrombin time (patient) 10.3 s [facility] 9.1-12.0 international normalized ratio (INR) 1.0 [facility] 0.9-1.2 calcium, serum 9.6 mg/dL [facility] 8.7-10.3 carbon dioxide, venous blood 31 mmol/L [facility] 20-29 High chloride, serum 104 mmol/L [facility] 96-106 potassium, serum 4.6 mmol/L [facility] 3.5-5.2 sodium, serum 144 mmol/L [facility] 095-021 7902/04 /22 urea nitrogen/creatinine ratio, serum 14 [facility] 12-28 eGFR if 83 mL/min/{1.7 3_m2} [facility] >59 eGFR if not 72 mL/min/{1.7 3_m2} [facility] >59 creatinine, serum 0.85 mg/dL [facility] 0.57-1.00 urea nitrogen, blood 12 mg/dL [facility] 8-27 blood glucose, random 88 mg/dL [facility] 65-99 basophil count, absolute 0.0 x10E3/uL [facility] 0.0-0.2 Eosinophil Absolute Count 0.0 X10E3/UL [facility] 0.0-0.4 monocyte count, blood, automated 0.7 X10E3/UL [facility] 0.1-0.9 lymphocyte count, blood, automated 2.1 X10E3/UL [facility] 0.7-3.1 Absolute Neutrophils 4.5 X10E3/UL [facility] 1.4-7.0 basophils as percent of blood leukocytes 1 % [facility] Not Estab. eosinophils as percent of blood leukocytes 1 % [facility] Not Estab. monocytes as percent of blood leukocytes 10 % [facility] Not Estab. lymphocytes as percent of blood leukocytes 29 % [facility] Not Estab. neutrophils as percent of blood leukocytes 59 % [facility] Not Estab. platelet count 248 X10E3/UL [facility] [phone]/04 /22 red blood cell distribution width 13.2 % [facility] 11.7-15.4 mean corpuscular hemoglobin concentration, RBC 33.3 G/DL [facility] 31.5-35.7 mean corpuscular hemoglobin, RBC 30.8 pg [facility] 26.6-33.0 mean corpuscular volume, RBC 92 fL [facility] 79-97 hematocrit, blood 46.5 % [facility] 34.0-46.6 hemoglobin, blood 15.5 g/dL [facility] 11.1-15.9 erythrocyte (RBC) count 5.04 X10E6/UL [facility] 3.77-5.28 leukocyte count, blood 7.5 X10E3/UL [facility] 3.4-10.8 erythrocyte sedimentation rate 2 mm/h [facility] 0-40 basophil count, absolute 0.0 x10E3/uL [facility] 0.0-0.2 Eosinophil Absolute Count 0.1 X10E3/UL [facility] 0.0-0.4 monocyte count, blood, automated 0.8 X10E3/UL [facility] 0.1-0.9 lymphocyte count, blood, automated 2.1 X10E3/UL [facility] 0.7-3.1 Absolute Neutrophils 4.6 X10E3/UL [facility] 1.4-7.0 basophils as percent of blood leukocytes 0 % [facility] Not Estab. eosinophils as percent of blood leukocytes 1 % [facility] Not Estab. monocytes as percent of blood leukocytes 11 % [facility] Not Estab. lymphocytes as percent of blood leukocytes 27 % [facility] Not Estab. neutrophils as percent of blood leukocytes 61 % [facility] Not Estab. platelet count 240 X10E3/UL [facility] [phone]/01 /23 red blood cell distribution width 12.9 % [facility] 11.7-15.4 mean corpuscular hemoglobin concentration, RBC 33.7 G/DL [facility] 31.5-35.7 mean corpuscular hemoglobin, RBC 30.9 pg [facility] 26.6-33.0 mean corpuscular volume, RBC 92 fL [facility] 79-97 hematocrit, blood 45.1 % [facility] 34.0-46.6 hemoglobin, blood 15.2 g/dL [facility] 11.1-15.9 erythrocyte (RBC) count 4.92 X10E6/UL [facility] 3.77-5.28 leukocyte count, blood 7.6 X10E3/UL [facility] 3.4-10.8 activated partial thromboplastin time (aPTT) 24 s [facility] 24-33 prothrombin time (patient) 10.1 s [facility] 9.1-12.0 international normalized ratio (INR) 0.9 [facility] 0.9-1.2 calcium, serum 9.1 mg/dL [facility] 8.7-10.3 carbon dioxide, venous blood 27 mmol/L [facility] 20- chloride, serum 104 mmol/L [facility] 96-106 potassium, serum 5.1 mmol/L [facility] 3.5-5.2 sodium, serum 144 mmol/L [facility] [phone]/01 /23 urea nitrogen/creatinine ratio, serum 9 [facility] 12-28 Low eGFR if 88 mL/min/{1.7 3_m2} [facility] >59 eGFR if not 76 mL/min/{1.7 3_m2} [facility] >59 creatinine, serum 0.81 mg/dL [facility] 0.57-1.00 urea nitrogen, blood 7 mg/dL [facility] 8-27 Low blood glucose, random 89 mg/dL [facility] 65-99 magnesium, serum 2.0 mg/dL [facility] 1.6-2.3 calcium, serum 9.5 mg/dL [facility] 8.7-10.3 carbon dioxide, venous blood 26 mmol/L [facility] 20-29 chloride, serum 102 mmol/L [facility] 96-106 potassium, serum 4.7 mmol/L [facility] 3.5-5.2 sodium, serum 140 mmol/L [facility] [phone]/01 /22 urea nitrogen/creatinine ratio, serum 9 [facility] 12-28 Low eGFR if 89 mL/min/{1.7 3_m2} [facility] >59 eGFR if not 77 mL/min/{1.7 3_m2} [facility] >59 creatinine, serum 0.80 mg/dL [facility] 0.57-1.00 urea nitrogen, blood 7 mg/dL [facility] 8-27 Low blood glucose, random 105 mg/dL [facility] 65-99 High ferritin, serum 101 ng/mL [facility] 15-150 prothrombin time (patient) 10.4 s [facility] 9.1-12.0 international normalized ratio (INR) 1.0 [facility] 0.8-1.2 iron saturation percent, serum 21 % [facility] 15-55 iron, serum 69 ug/dL [facility] 27-139 iron binding capacity, unsaturated 260 ug/dL [facility] [phone]/08 /07 iron binding capacity, total 329 ug/dL [facility] 119-110 5329/08 /07 free thyroxine index 2.7 [facility] 1.2-4.9 triiodothyronine resin uptake 29 % [facility] 24-39 thyroxine, serum, total 9.3 ug/dL [facility] 4.5-12.0 thyroid stimulating hormone, serum 1.860 u[IU]/mL [facility] 0.450-4.500 hemoglobin A1C, blood, as % of total hemoglobin 6.3 % [facility] 4.8-5.6 High lipoprotein, beta, serum, point, quantitative, calculated 109 mg/dL [facility] 0-99 High very low density lipoproteins 19 mg/dL [facility] 5-40 HDL cholesterol, serum 70 mg/dL [facility] >39 triglyceride, serum, random 95 mg/dL [facility] 0-149 cholesterol, serum 198 mg/dL [facility] [phone]/08 /07 calcium, serum 9.7 mg/dL [facility] 8.7-10.3 carbon dioxide, venous blood 31 mmol/L [facility] 20-29 High chloride, serum 101 mmol/L [facility] 96-106 potassium, serum 4.7 mmol/L [facility] 3.5-5.2 sodium, serum 146 mmol/L [facility] 134-144 High urea nitrogen/creatinine ratio, serum 14 [facility] 12-28 eGFR if 76 mL/min/{1.7 3_m2} [facility] >59 eGFR if not 66 mL/min/{1.7 3_m2} [facility] >59 creatinine, serum 0.91 mg/dL [facility] 0.57-1.00 urea nitrogen, blood 13 mg/dL [facility] 8-27 blood glucose, random 110 mg/dL [facility] 65-99 High bacteria, urine microscopy Few [facility] None seen/Few epithelial cells, urine 0-10 [facility] 0 - 10 RBC, Urine 0-2 /hpf [facility] 0 - 2 WBC urine on microscopy 6-10 /hpf [facility] 0 - 5 Abnormal urinalysis, microscopic examination See below: [facility] nitrate, urine Negative [facility] Negative urobilinogen, urine, semiquantitative (dipstick) 0.2 [facility] 0.2-1.0 bilirubin, urine Negative [facility] Negative hemoglobin, urine, by dipstick Negative [facility] Negative ketones, urine, by test strip Negative [facility] Negative glucose, urine Negative [facility] Negative protein, urine, semiquantitative (dipstick) Negative [facility] Negative/Tra ce leukocyte esterase, urine, by dipstick 1+ [facility] Negative Abnormal appearance, urine Clear [facility] Clear urine color Yellow [facility] Yellow pH, urine, semiquantitative 5.5 [facility] 5.0-7.5 specific gravity, body fluid 1.013 [facility] 1.005-1.030 basophil count, absolute 0.0 x10E3/uL [facility] 0.0-0.2 Eosinophil Absolute Count 0.1 X10E3/UL [facility] 0.0-0.4 monocyte count, blood, automated 0.9 X10E3/UL [facility] 0.1-0.9 lymphocyte count, blood, automated 3.2 X10E3/UL [facility] 0.7-3.1 High Absolute Neutrophils 5.2 X10E3/UL [facility] 1.4-7.0 basophils as percent of blood leukocytes 0 % [facility] Not Estab. eosinophils as percent of blood leukocytes 1 % [facility] Not Estab. monocytes as percent of blood leukocytes 9 % [facility] Not Estab. lymphocytes as percent of blood leukocytes 34 % [facility] Not Estab. neutrophils as percent of blood leukocytes 56 % [facility] Not Estab. platelet count 244 X10E3/UL [facility] 518-400 9893/08 /07 red blood cell distribution width 13.1 % [facility] 11.7-15.4 mean corpuscular hemoglobin concentration, RBC 32.9 G/DL [facility] 31.5-35.7 mean corpuscular hemoglobin, RBC 30.2 pg [facility] 26.6-33.0 mean corpuscular volume, RBC 92 fL [facility] 79-97 hematocrit, blood 48.3 % [facility] 34.0-46.6 High hemoglobin, blood 15.9 g/dL [facility] 11.1-15.9 erythrocyte (RBC) count 5.27 X10E6/UL [facility] 3.77-5.28 leukocyte count, blood 9.4 X10E3/UL [facility] 3.4-10.8 coagulation managed by Marco A Velasco RN international normalized ratio (INR) 1.7 Chelsea Steele Normal prothrombin time (patient) 20.4 s Chelsea Steele hemoglobin A1C, blood, as % of total hemoglobin 5.9 % [facility] 4.8-5.6 High lipoprotein, beta, serum, point, quantitative, calculated 97 mg/dL [facility] 0-99 very low density lipoproteins 21 mg/dL [facility] 5-40 HDL cholesterol, serum 61 mg/dL [facility] >39 triglyceride, serum, random 104 mg/dL [facility] 0-149 cholesterol, serum 179 mg/dL [facility] [phone]/12 /10 coagulation managed by Marco A Velasco RN international normalized ratio (INR) 1.2 Trinityjonnathan Hazel Normal prothrombin time (patient) 14.8 s Trniity Hazel microalbumin/creati nine ratio, urine <6.0 mg/g creat [facility] 0.0-30.0 microalbumin, random, urine <3.0 ug/mL [facility] Not Estab. creatinine, random, urine 50.2 mg/dL [facility] Not Estab. activated partial thromboplastin time (aPTT) 27 s [facility] 24-33 calcium, serum 9.4 mg/dL [facility] 8.7-10.3 carbon dioxide, venous blood 25 mmol/L [facility] 20-29 chloride, serum 100 mmol/L [facility] 96-106 potassium, serum 3.9 mmol/L [facility] 3.5-5.2 sodium, serum 143 mmol/L [facility] [phone]/12 /08 urea nitrogen/creatinine ratio, serum 15 [facility] 12-28 eGFR if 85 mL/min/{1.7 3_m2} [facility] >59 eGFR if not 74 mL/min/{1.7 3_m2} [facility] >59 creatinine, serum 0.84 mg/dL [facility] 0.57-1.00 urea nitrogen, blood 13 mg/dL [facility] 8-27 blood glucose, random 94 mg/dL [facility] 65-99 basophil count, absolute 0.0 x10E3/uL [facility] 0.0-0.2 Eosinophil Absolute Count 0.1 X10E3/UL [facility] 0.0-0.4 monocyte count, blood, automated 0.8 X10E3/UL [facility] 0.1-0.9 lymphocyte count, blood, automated 3.4 X10E3/UL [facility] 0.7-3.1 High Absolute Neutrophils 5.3 X10E3/UL [facility] 1.4-7.0 basophils as percent of blood leukocytes 0 % [facility] Not Estab. eosinophils as percent of blood leukocytes 1 % [facility] Not Estab. monocytes as percent of blood leukocytes 9 % [facility] Not Estab. lymphocytes as percent of blood leukocytes 36 % [facility] Not Estab. neutrophils as percent of blood leukocytes 54 % [facility] Not Estab. platelet count 248 X10E3/UL [facility] 234-253 5515/12 /08 red blood cell distribution width 13.3 % [facility] 12.3-15.4 mean corpuscular hemoglobin concentration, RBC 32.3 G/DL [facility] 31.5-35.7 mean corpuscular hemoglobin, RBC 29.9 pg [facility] 26.6-33.0 mean corpuscular volume, RBC 92 fL [facility] 79-97 hematocrit, blood 45.2 % [facility] 34.0-46.6 hemoglobin, blood 14.6 g/dL [facility] 11.1-15.9 erythrocyte (RBC) count 4.89 X10E6/UL [facility] 3.77-5.28 leukocyte count, blood 9.6 X10E3/UL [facility] 3.4-10.8 pro brain natriuretic peptide 31.5 pg/mL [facility] 0.0 - 125.0 very low density lipoproteins 38.6 mg/dL [facility] 5.0 - 40.0 LDL/HDL (low-density lipoprotein/high-de nsity lipoprotein) ratio 1.4 RATIO [facility] - lipoprotein, beta, serum, point, quantitative, calculated 95.4 (?) [facility] 0.0 - 100.0 HDL cholesterol, serum 69.0 mg/dL [facility] 45.0 - 65.0 High cholesterol, serum 203.0 mg/dL [facility] 0.0 - 200.0 High triglyceride, serum, fasting 193.0 mg/dL [facility] 0.0 - 150.0 High lipase, serum 21.0 U/L [facility] 13.0 - 60.0 anion gap, [facility].4 [facility], serum 1.8 g/dL [facility] 1.1 - 2.5 globulin, serum 2.5 [facility] 2.3 - 3.8 urea nitrogen/creatinine ratio, serum 12.5 [facility] Estimated Glomerular Filtration Rate (calc) 77.2 (?) [facility] 59.0 - chloride, serum 99.6 mmol/L [facility] 98.0 - 107.0 potassium, serum 4.3 mmol/L [facility] 3.5 - 5.1 sodium, serum 142.0 mmol/L [facility] 136.0 - 145.0 creatinine, serum 0.8 mg/dL [facility] 0.5 - 1.0 carbon dioxide, venous blood 29.0 mmol/L [facility] 23.0 - 31.0 albumin, serum 4.6 g/dL [facility] 3.5 - 5.2 calcium, serum 10.0 mg/dL [facility] 8.6 - 10.2 aspartate aminotransferase (SGOT), serum 16.0 1/L [facility] 0.0 - 32.0 alkaline phosphatase, serum 95.0 1/L [facility] 40.0 - 130.0 alanine aminotransferase (SGPT), serum 19.0 1/L [facility] 0.0 - 33.0 protein, total, serum 7.1 g/dL [facility] 6.6 - 8.7 bilirubin, serum, total 0.4 mg/dL [facility] 0.0 - 1.2 urea nitrogen, blood 10.0 mg/dL [facility] 8.0 - 23.0 blood glucose, random [facility].0 [facility] - 99.0 Low amylase, serum 48.0 1/L [facility] 28.0 - 100.0 red blood cell distribution width, size density 43.4 fL [facility] - immature granulocytes, percentage of total cells, blood 0.4 % [facility] - nucleated red blood cells as percent of blood leukocytes 0.0 % [facility] - red blood cell (erythrocyte) count, per high power field 0.0 10*3/UL [facility] - eosinophils as percent of blood leukocytes 0.7 % [facility] - neutrophils as percent of blood leukocytes 60.3 % [facility] - Absolute Neutrophils 5.9 CELLS/UL [facility] 1.5 - 7.8 basophils as percent of blood leukocytes 0.5 % [facility] - Absolute Basophils 0.1 CELLS/UL [facility] 0.0 - 0.2 monocytes as percent of blood leukocytes 10.9 % [facility] - Absolute Monocytes 1.1 CELLS/UL [facility] 0.2 - 1.0 High lymphocytes as percent of blood leukocytes 27.2 % [facility] Lymphocytes 2.7 CELLS/UL [facility] 0.9 - 3.9 mean platelet volume 11.8 (?) [facility] - platelet count 208.0 THOUSAND/UL [facility] 100.0 - 400.0 mean corpuscular hemoglobin concentration, RBC 32.2 G/DL [facility] 31.0 - 38.0 mean corpuscular hemoglobin, RBC 29.4 pg [facility] 25.0 - 35.0 mean corpuscular volume, RBC 91.4 fL [facility] 75.[facility] - 100.0 hematocrit, blood 51.0 % [facility] 35.0 - 55.0 hemoglobin, blood 16.4 g/dL [facility] 11.5 - 16.5 erythrocyte count, whole blood 5.6 MILLION/UL [facility] 3.5 - 5.5 High hemoglobin A1C, blood, as % of total hemoglobin 6.1 % [facility] 4.0 - 5.6 High folate, serum 6.0 NG/MLM [facility] 5.6 - 45.8 ferritin, serum 118.9 ng/mL [facility] 13.0 - 150.0 iron, serum 73.0 ug/dL [facility] 25.0 - 156.0 iron saturation percent, serum 20.8 % [facility] 20.0 - 50.0 iron binding capacity, total 351.4 ug/dL [facility] 250.0 - 450.0 rapid plasma reagin antibody, serum NON-REACTIV E [facility] NON-REACTIVE very low density lipoproteins 35.6 mg/dL [facility] 5.0 - 40.0 LDL/HDL (low-density lipoprotein/high-de nsity lipoprotein) ratio 1.2 RATIO [facility] - lipoprotein, beta, serum, point, quantitative, calculated 97.4 (?) [facility] 0.0 - 100.0 HDL cholesterol, serum 80.0 mg/dL [facility] 45.0 - 65.0 High cholesterol, serum 213.0 mg/dL [facility] 0.0 - 200.0 High triglyceride, serum, fasting 178.0 mg/dL [facility] 0.0 - 150.0 High ferritin, serum 30.6 ng/mL [facility] 13.0 - 150.0 urea nitrogen/creatinine ratio, serum 13.8 [facility] Estimated Glomerular Filtration Rate (calc) 77.2 (?) [facility] 59.0 - chloride, serum 101.5 mmol/L [facility] 98.0 - 107.0 potassium, serum 4.0 mmol/L [facility] 3.5 - 5.1 sodium, serum 141.0 mmol/L [facility] 136.0 - 145.0 creatinine, serum 0.8 mg/dL [facility] 0.5 - 1.0 carbon dioxide, venous blood 29.0 mmol/L [facility] 23.0 - 31.0 calcium, serum 9.6 mg/dL [facility] 8.6 - 10.2 urea nitrogen, blood 11.0 mg/dL [facility] 8.0 - 23.0 blood glucose, random 101.0 mg/dL [facility] 74.0 - 99.0 High red blood cell distribution width, size density 49.1 fL [facility] - immature granulocytes, percentage of total cells, blood 0.4 % [facility] - nucleated red blood cells as percent of blood leukocytes 0.0 % [facility] - red blood cell (erythrocyte) count, per high power field 0.0 10*3/UL [facility] - eosinophils as percent of blood leukocytes 0.7 % [facility] - neutrophils as percent of blood leukocytes 62.8 % [facility] - Absolute Neutrophils 6.0 CELLS/UL [facility] 1.5 - 7.8 basophils as percent of blood leukocytes 0.7 % [facility] - Absolute Basophils 0.1 CELLS/UL [facility] 0.0 - 0.2 monocytes as percent of blood leukocytes 8.2 % [facility] - Absolute Monocytes 0.8 CELLS/UL [facility] 0.2 - 1.0 lymphocytes as percent of blood leukocytes 27.2 % [facility] - Absolute Lymphocytes 2.6 CELLS/UL [facility] 0.9 - 3.9 mean platelet volume 11.9 (?) [facility] - platelet count 192.0 THOUSAND/UL [facility] 100.0 - 400.0 mean corpuscular hemoglobin concentration, RBC 31.0 G/DL [facility] 31.0 - 38.0 mean corpuscular hemoglobin, RBC 27.7 pg [facility] 25.0 - 35.0 mean corpuscular volume, RBC 89.2 fL [facility] 75.0 - 100.0 hematocrit, blood 49.3 % [facility] 35.0 - 55.0 hemoglobin, blood 15.3 g/dL [facility] 11.5 - 16.5 erythrocyte count, whole blood 5.5 MILLION/UL [facility] 3.5 - 5.5 iron, serum 33.0 ug/dL [facility] 25.0 - 156.0 iron saturation percent, serum 7.0 % [facility] 20.0 - 50.0 Low iron binding capacity, total 473.2 ug/dL [facility] 250.0 - 450.0 High Nitrite Urine Negative [facility] Negative urobilinogen, urine 0.2 E.U./dL mg/dl [facility] 0.2 - 1.0 specific gravity, urine 1.020 [facility] 1.001 - 1.035 KETONES, URINE Negative [facility] Negative bilirubin, urine Negative [facility] Negative Glucose Urine Negative [facility] Negative clarity, urine, point Clear [facility] Yellow urine color Yellow [facility] yellow to la activated partial thromboplastin time 24.9 SECONDS [facility] 23.0 - 33.0 prothrombin time (patient) 9.8 s [facility] 9.0 - 11.5 international normalized ratio (INR) 0.9 [facility] 0.9 - 1.1 vitamin b12, serum 543.7 pg/mL [facility] 211.0 - 946.0 free thyroxine index 8.2 ??g/dL [facility] 4.4 - 11.4 triiodothyronine uptake 1.1 TBI [facility] 0.8 - 1.3 thyroxine, serum, total 9.0 ??G/DL [facility] 4.5 - 11.7 thyroid stimulating hormone, serum 1.630 ??IU/ML [facility] 0.270 - 4.200 pro brain natriuretic peptide 50.1 pg/mL [facility] 0.0 - 125.0 very low density lipoproteins 23.2 mg/dL [facility] 5.0 - 40.0 LDL/HDL (low-density lipoprotein/high-de nsity lipoprotein) ratio 1.4 RATIO [facility] - lipoprotein, beta, serum, point, quantitative, calculated 97.8 (?) [facility] 0.0 - 100.0 HDL cholesterol, serum 72.0 mg/dL [facility] 45.0 - 65.0 High cholesterol, serum 193.0 mg/dL [facility] 0.0 - 200.0 triglyceride, serum, fasting 116.0 mg/dL [facility] 0.0 - 150.0 C-reactive protein, serum 1.1 mg/dL [facility] 0.0 - 0.5 High hemoglobin A1C, blood, as % of total hemoglobin 6.1 % [facility] 4.0 - 6.0 High HISTORY OF MEDICATION USE Medication Status Instructions Dates Provider Indications Com ments lovastatin 20 mg tablet active Take 1 tablet by mouth once daily 02/17 Charissa Blanc nitroglycerin 0.4 mg tablet, sublingual active 1 tablet under tongue as directed as needed 1 tablet under tongue for chest pain. May repeat every 5 minutes if still having chest pain- to max of 3 tablets per episode.If no relief after 3rd dose, go to ER 04/23 Wilmer Monet metformin 500 mg tablet active Take 1 tablet by mouth once daily 11/30 Joshua Zapata hydrochlorothiazide 12.5 mg tablet active Take 1 tablet by mouth once daily 11/25 Joshua Zapata magnesium oxide 400 mg (241.3 mg magnesium) tablet active Take 1 tablet by mouth once daily 11/11 [facility] valsartan 40 mg tablet active Take 1 tablet by mouth once daily Charissa Blanc hydrochlorothiazide 12.5 mg tablet completed Take 1 tablet by mouth once a day 07/21 - 11/25 Merary Millan lovastatin 20 mg tablet completed Take 1 tablet by mouth once a day 07/14 - 02/17 Charissa Blanc omeprazole 40 mg capsule,delayed release(DR/EC) completed Take 1 capsule by mouth once daily 06/10 - 06/05 Jefferson Mederos lovastatin 20 mg tablet completed Take 1 tablet by mouth once daily 06/10 - 06/05 Jefferson Mcadamst magnesium oxide 400 mg (241.3 mg magnesium) tablet completed 1 tablet once a day 11/05 - 11/11 Lakesha Garcia NP metformin 500 mg tablet completed 1 tablet by mouth once a day - 12/29 Jefferson Mcadamst Xarelto 20 mg tablet active 1 tablet every night Caesar Castro MD valsartan 40 mg tablet completed 1 tablet by mouth once a day - 06/26 Melinda Jurado CLINDAMYCIN HCL 300 MG ORAL CAPSULE completed one tab three times daily x 10 days 07/16 - Trinity Hazel CEPHALEXIN 500 MG ORAL TABLET completed Take 1 Tab Three Times a Day 10 Days 06/24 - Trinity Hazel PERCOCET 5-325 MG ORAL TABLET completed Take 1 Tab Every 8 Hours for Pain 06/24 - 05/27 Charissa Blanc ZETIA 10 MG ORAL TABLET completed ONE TAB. DAILY with lovastatn 05/31 - 05/27 Charissa Blanc cholecalciferol (vitamin D3) 1,250 mcg (50,000 unit) capsule completed 1 capsule by mouth once a week 05/31 - 11/11 Lakesha Garcia [employer] MAGNESIUM OXIDE 400 MG ORAL TABLET completed ONE TAB TWICE A DAY 12/15 - 05/30 Trinity Hazel COUMADIN 5 MG ORAL TABLET completed Take 1 tab daily with evening meal. Start first dose on 201711/09 - 05/30 Trinity Hazel ASPIRIN ADULT LOW DOSE 81 MG ORAL TABLET DELAYED RELEASE completed One Tab By Mouth Daily 10/30 - 05/30 Trinity Hazel COZAAR 50 MG ORAL TABLET completed ONE TAB. DAILY 06/24 - 05/30 Trinity Hazel Coreg 25 mg tablet active 1 tablet twice a day 11/29 Caesar Castro MD levetiracetam 500 mg tablet active Take 1 tablet twice a day 04/20 Chelsea Steele VALSARTAN 40 MG ORAL TABLET completed one a day 03/17 - 06/24 Caesar Castro MD WELLBUTRIN XL 150 MG ORAL TABLET EXTENDED RELEASE 24 HOUR completed po daily 02/22 - 05/27 Charissa Blanc hydrochlorothiazide 12.5 mg tablet completed Take 1 tablet by mouth once a day 12/07 - 06/22 Ivanna Rockhold QSYMIA 11.25-69 MG ORAL CAPSULE EXTENDED RELEASE 24 HOUR completed one a day 01/12 - 02/22 Buddy Galindo MD QSYMIA 11.25-69 MG ORAL CAPSULE EXTENDED RELEASE 24 HOUR completed daily 12/22 - 05/27 Martita Peña lovastatin 20 mg tablet completed Take 1 tablet by mouth once a day 12/07 - 06/10 Jefferson Mederos HYDROCODONE-ACETAMINO PHEN TABLET completed as needed 12/22 - 05/27 Charissa Blanc QSYMIA 7.5-46 MG ORAL CAPSULE EXTENDED RELEASE 24 HOUR completed one tablet daily 06/11 - 05/27 Charissa Blanc QSYMIA 3.75-23 MG ORAL CAPSULE EXTENDED RELEASE 24 HOUR completed one tablet daily 05/28 - 05/27 Charissa Blanc VITAMIN D3 18834 UNIT ORAL CAPSULE completed once a week 05/11 - 04/20 Caesar Castro MD ASPIRIN EC 81 MG ORAL TABLET DELAYED RELEASE completed one tab daily 04/22 - 05/28 Caesar Castro MD MULTIVITAMINS CAPS active 1 tablet once a day Martita Peña omeprazole 40 mg capsule,delayed release(DR/EC) completed Take 1 capsule by mouth once a day 05/19 - 06/10 Caesar Castro MD CARTIA XT 120 MG ORAL CAPSULE EXTENDED RELEASE 24 HOUR completed one a day 05/11 - 04/20 Caesar Castro MD LOSARTAN POTASSIUM-HCTZ 50-12.5 MG ORAL TABLET completed once daily - 05/11 Caesar Castro MD citalopram 20 mg tablet active Take 1 tablet by mouth once a day Molina Rodriguez LOVASTATIN 20 MG ORAL TABLET completed ONE TAB. DAILY - 05/27 Charissa Blanc SOCIAL HISTORY Date Observation Value Provider social history E&M S moking History: Garrison ayala is a former smoker. 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 P atient has been counseled to quit. Joaquin Reynolds social history reviewed E&M revi ewed - no changes required Joaquin Reynolds smoking/tobacco cess ation, patient education and counseling yes Charissa Guanaco smoking history, tot al pack/day 3 a day Charissa Blanc cigarette use yes Charissa clark smoking status Current every day smoker K rashid Blanc social history E&M S moking History: P atient currently smokes every day. P atient has been counseled to quit. Gabriel Mesa social history reviewed E&M revi ewed - no changes required Gabriel Mesa smoking/tobacco cess ation, patient education and counseling yes Charissaelizabeth Blanc smoking history, tot al pack/day 3 a day Charissa Blanc cigarette use yes Charissa Kashif clark smoking status Current every day smoker K skipi Guanaco social history E&M S moking History: P atient currently smokes every day. P atient has been counseled to quit. Caesar Castro MD social history reviewed E&M revi ewed - no changes required Caesar Castro MD smoking/tobacco cess ation, patient education and counseling yes Trinity Hazel smoking history, tot al pack/day 3 a day Trinity Hazel cigarette use yes Trinityguillermo wu smoking status Current every day smoker Maykel ziegler Hazel social history E&M S moking History: P atient currently smokes every day. P atient has been counseled to quit. Caesar Castro MD social history reviewed E&M revi ewed - no changes required Caesar Castro MD smoking/tobacco cess ation, patient education and counseling yes Trinity Hazel smoking history, tot al pack/day 3 a day Trinity Ilir cigarette use yes Trinity Danette wu smoking status Current every day smoker C toney Hazel social history reviewed E&M revi ewed - no changes required Arvin Jean social history E&M S moking History: P atient currently smokes every day. P atient has been counseled to quit. Arvin Jean smoking/tobacco cess ation, patient education and counseling yes Charissa Blanc smoking history, tot al pack/day 3 a day Charissa Blanc cigarette use yes Charissa clark smoking status Current every day smoker K rashid Blanc number of grandchildren Gutierrez Jean social history reviewed E&M revi ewed - no changes required Arvin Jean social history E&M S moking History: P atient currently smokes every day. P atient has been counseled to quit. Arvin Jean smoking/tobacco cess ation, patient education and counseling yes Martita Peña smoking history, tot al pack/day 3 a day Martita Peña cigarette use yes Martita bernabe smoking status Current every day smoker Xi Peña social history E&M S moking History: P atient currently smokes every day. P atient has been counseled to quit. Caesar Castro MD social history reviewed E&M revi ewed - no changes required Caesar Castro MD smoking/tobacco cess ation, patient education and counseling yes Trinity Ilir smoking history, tot al pack/day 3 a day Trinity Hazel cigarette use yes Trinity Fengarina wu smoking status Current every day smoker Maykel karenkam Hazel social history E&M S moking History: P atient currently smokes every day. P atient has been counseled to quit. Caesar Castro MD social history reviewed E&M revi ewed - no changes required Caesar Castro MD smoking/tobacco cess ation, patient education and counseling yes Chelsea Ivette smoking history, tot al pack/day 3 a day Chelsea Ivette cigarette use yes Chelsea Ivette smoking status Current every day smoker D micahmaggie Ivette social history E&M S moking History: P atient currently smokes every day. P atient has been counseled to quit. Caesar Castro MD social history reviewed E&M revi ewed - no changes required Caesar Castro MD smoking/tobacco cess ation, patient education and counseling yes Charissa Blanc smoking history, tot al pack/day 3 a day Charissa Blanc cigarette use yes Charissa clark smoking status Current every day smoker K rashid Blanc social history reviewed E&M revi ewed - no changes required Buddy Galindo MD smoking/tobacco cess ation, patient education and counseling yes Kira Sanches smoking history, tot al pack/day 3 a day Kira Sanches cigarette use yes Kira Sanches smoking status Current every day smoker Charlene Sanches social history E&M S moking History: P atient currently smokes every day. P atient has been counseled to quit. Caesar Castro MD social history reviewed E&M revi ewed - no changes required Caesar Castro MD smoking/tobacco cess ation, patient education and counseling yes Martitachapincito Peña smoking history, tot al pack/day 3 a day Martita Peña cigarette use yes Martita bernabe smoking status Current every day smoker Xi Peña social history reviewed E&M revi ewed - no changes required Gloria Gonzales MD social history E&M S moking History: P atient currently smokes every day. P atient has been counseled to quit. Gloria Gonzales MD smoking/tobacco cess ation, patient education and counseling yes Martita Peña smoking history, tot al pack/day 3 a day Martita Peña cigarette use yes Martita bernabe smoking status Current every day smoker Xi Peña social history E&M S moking History: P atient currently smokes every day. P atient has been counseled to quit. Caesar Castro MD social history reviewed E&M revi ewed - no changes required Caesar Castro MD smoking/tobacco cess ation, patient education and counseling yes Charissa Blanc smoking history, tot al pack/day 3 a day Charissa Blanc cigarette use yes Charissa clark smoking status Current every day smoker K rashid Blanc social history E&M S moking History: Garrison ayala currently smokes every day. P jamie has been counseled to quit. Caesar Castro MD social history reviewed E&M revi ewed - no changes required Caesar Castro MD smoking/tobacco cess ation, patient education and counseling yes Martita Peña smoking history, tot al pack/day 1 cig per week Martita Peña cigarette use yes Martita bernabe smoking status Current every day smoker Xi Theron Peña smoking/tobacco cess ation, patient education and counseling yes Caesar Castro MD social history E&M S moking History: Garrison ayala currently smokes every day. Caesar Castro MD smoking history, tot al pack/day 1 cig per week Ailyn Henry cigarette use yes Ailynnguyen Jeffreyon smoking status Current every day smoker Guillermo delcid Henry social history reviewed E&M revi ewed - no changes required Ailyngnuyen Figueroa smoking/tobacco cess ation, patient education and counseling yes Caesar Castro MD social history E&M S moking History: Garrison ayala currently smokes every day. Caesar Castro MD social history reviewed E&M revi ewed - no changes required Caesar Castro MD smoking history, tot al pack/day 1cig Martita Peña cigarette use yes MartitaSophia bernabe smoking status Current every day smoker Xi Michelleoliva Peña FUNCTIONAL STATUS Date Observation Value Provider HRA, CV Assess/Plan, Angina (inactive) Management Plan continue current therapy Wilmer Ahmedzai HRA, CV Assess/Plan, Angina (inactive) Management Plan continue current therapy Wilmer Ahmedzai HRA, CV Assess/Plan, Angina (inactive) Management Plan continue current therapy Lakesha Garcia NP HRA, CV Assess/Plan, Angina (inactive) Management Plan continue current therapy Taewon Rodolfo HRA, CV Assess/Plan, Angina (inactive) Management Plan continue current therapy Joaquin Reynolds HRA, CV Assess/Plan, Angina (inactive) Management Plan continue current therapy Caesar Castro MD HRA, CV Assess/Plan, Angina (inactive) Management Plan continue current therapy Caesar Castro MD HRA, CV Assess/Plan, Angina (inactive) Management Plan continue current therapy Arvin Miranda HRA, CV Assess/Plan, Angina (inactive) Management Plan continue current therapy Arvin Miranda HRA, CV Assess/Plan, Angina (inactive) Management Plan continue current therapy Caesar Castro MD MENTAL STATUS Date Observation Value Provider energy level yes [place] [facility] level yes [place] Tebid energy level yes [place] Tebid energy level yes [place] Tebid energy level yes [place] energy level yes [place] energy level yes [place] energy level yes [place] energy level yes [place] energy level yes [place] energy level yes [place] energy level yes [place] energy level yes [place] energy level yes [place] energy level yes [place] energy level yes [place] energy level yes [place] energy level yes [place] energy level yes [place] energy level yes [place] energy level yes [place] energy level yes [place] energy level yes [place] energy level yes [place] energy level yes [place] T[place]id energy level yes [place] T[place] energy level yes [place] T[place] energy level yes Zoraida Tebid energy level yes Zoraida Tebid energy level no Zoraida Tebid FAMILY HISTORY Family Member Condition Father Family History of Di abetes: Mother Family History of Di abetes: INSURANCE PROVIDERS Payer name Policy type / Coverage type [employer] ID [employer] MED[employer]AGE [address] 0 [address] (HMO POS) Medicare [id number] ADVANCE DIRECTIVES Name Date DISCUSSED - NO DECISION MADE TREATMENT PLAN Date Name Performer [id number],C, B P today: 131/65 P rior BP: 152/86 (03/26/2023) Labs Reviewed: C reat: 0.85 (02/13/2021) C hol: 198 (05/31/2020) HDL: 70 (05/31/2020) Wilmer Wallyalan [id number],S, Wilmer Sandra i [id number],C,C ardiac monitor showed S inus Rhythm with occasional Ventricular ectopics and rare Supraventricular e ctopics. The average heart rate was 70bpm with a maximum rate of 105bpm and a m inimum rate of 61bpm. VE?s were documented as triplets, couplets, bigeminal c ycles, and isolated beats with a burden of 2.26%. Wilmer kurtvianney [id number],C,p ending stress test w ill send in nitro for now as needed [id number],A BI was normal but sensilase showed decreased PVR with normal perfusion pressures b/l, this is c/w venous insufficiency. Wilmer celinei [id number],C,pending stres s nuclear Wilmer celinei [id number],C,W ill check stress nuclear to assess for ischemia and and PFT given her hx of smoking Wilmer kurtvianney [id number],C,p t has chest pain which is new for her and not improving, will check stress nuclear Wilmer Monet [id number],S,w ill check 48 hr holter to assess for arrythmias which may be contributing to her chest discomfort Wilmer Monet [id number],C,s he did suffer injury on leg which may be a contributor but has decreased pulses on left leg, will check TANG and Sensilase to assess arterial flow. Wilmer Monet [id number],C, B P today: 152/86 P rior BP: 127/79 (09/11/2022) Labs Reviewed: C reat: 0.85 (02/13/2021) C hol: 198 (05/31/2020) HDL: 70 (05/31/2020) Wilmer Monet [id number],C,e ncouraged to cut down by half until able to quit. pt verbalizes desire to quit smoking. Lakesha Garcia [employer]ET ASSEMBLER [id number],C,? syncope or seizure as in HPI. will plan ILR. o n ashlee Garcia [employer]ET ASSEMBLER [id number],C, B P today: 127/79 P rior BP: 152/86 (02/21/2021) Labs Reviewed: C reat: 0.85 (02/13/2021) C hol: 198 (05/31/2020) HDL: 70 (05/31/2020) Her updated medication list for this problem includes: Valsartan 40 Mg Tablet (Valsartan) ..... Take 1 tablet by mouth once daily Hydrochlorothiazide 12.5 Mg Tablet (Hydrochlorothiazide) ..... Take 1 tablet by mouth once a day Coreg 25 Mg Tablet (Carvedilol) ..... 1 tablet twice a day Lakesha Garcia NP [id number],C,s ustained VT seen on stress test 2020 Orders: Stress 11/14/2020: P ost ECG: T here were no ischemic ST or T changes. During infusion had a few PVCs. However during the recovery phase this increased in f requency and in fact the patient had sustained VT which did not cause any hemodynamic compromise and resolved s pontaneously. Dr. Galindo was notified. CONCLUSIONS: 1 . Normal sinus rhythm. Normal resting ECG. 2 . Because of the VT this is an abnormal stress. She will be set up to see an EP physician and continue on her BB and labs will b e checked. 3 . Normal myocardial perfusion imaging with no evidence of ischemia or scar. 4 . Left Ventricular Ejection Fraction is 60 %. TID: 0.96. Her updated medication list for this problem includes: Coreg 25 Mg Oral Tablet (Carvedilol) ..... One tab. twice daily 31 second episode of VT, HR 176 bpm documented on remote ILR check 08/12/18. O n EP study 10/06/18, no inducible VT or VF. recent ? syncopal episode. will plan for ILR Lakeshaliliana Reiddaniel SINGLETON [id number],C,recent telese ntry as above Lakesha Reiddaniel SINGLETON [id number],C, Pt reports that she a couple of months ago, she had what was suspected to have 'syncopal episode.' She states that she wasn't feeling well, she sat down and wake on on the ground, 'scratched my face all up.' She saw her PCP and unable to determine syncope vs seizure. will plan loop recorder. ? syncope. previous EP study with Non-inducible VT Lakesha Hodgsonangela SINGLETON [id number],C,p t had telesentry 08/25/22 Sinus Rhythm with 1 Ventricular Tachycardia event, 2 paroxysmal Supraventricular Tachycardia events, frequent Ventricular ectopics, and rare Supraventricular ectopics. The average heart rate was 70bpm with a maximum sinus rate of 103bpm and a minimum rate of 54bpm. VT was documented as having 4 beats with a maximum rate of 137bpm. PSVT was documented with the longest event having 7 b eats and a maximum rate measured at 148bpm. VE?s were documented as triplets, couplets, and isolated beats with a total burden of 5.69%. SVE?s were documented as couplets and isolated beats Lakeshajacqueline Garcia [employer]ET ASSEMBLER [id number],C, pt states that over the last couple of weeks, she has been experiencing intermittent chest pressure, 6/10, unchanged with inspiration or movement, and not associated with any specific activity. occurs at rest and with exertion. radation to L arm and associated with nausea. will check rtroutine stress test and ECHO Lakesha Garcia [employer]ET ASSEMBLER Electrophysiology: B P today: 131/65 P rior BP: 152/86 (03/26/2023) Labs Reviewed: C reat: 0.85 (02/13/2021) C hol: 198 (05/31/2020) HDL: 70 (05/31/2020) Wilmer Monet Electrophysiology Wilmer Monet Electrophysiology:Ca rdiac monitor showed S inus Rhythm with occasional Ventricular ectopics and rare Supraventricular e ctopics. The average heart rate was 70bpm with a maximum rate of 105bpm and a m inimum rate of 61bpm. VE?s were documented as triplets, couplets, bigeminal c ycles, and isolated beats with a burden of 2.26%. Wilmerjorge Monet Electrophysiology:pe nding stress test w ill send in nitro for now as needed Wilmer Monet Electrophysiology:AB I was normal but sensilase showed decreased PVR with normal perfusion pressures b/l, this is c/w venous insufficiency. Wilmer Monet Electrophysiology:pending stress nuclear Wilmer Monet Electrophysiology:Wi ll check stress nuclear to assess for ischemia and and PFT given her hx of smoking Wilmer Monet Electrophysiology:pt has chest pain which is new for her and not improving, will check stress nuclear Wilmer Monet Electrophysiology:wi ll check 48 hr holter to assess for arrythmias which may be contributing to her chest discomfort Wilmer Monet Electrophysiology:sh e did suffer injury on leg which may be a contributor but has decreased pulses on left leg, will check TANG and Sensilase to assess arterial flow. Wilmer Monet Electrophysiology: B P today: 152/86 P rior BP: 127/79 (09/11/2022) Labs Reviewed: C reat: 0.85 (02/13/2021) C hol: 198 (05/31/2020) HDL: 70 (05/31/2020) Wilmer Monet Electrophysiology:en couraged to cut down by half until able to quit. pt verbalizes desire to quit smoking. Lakesha Garcia [employer] ASSEMBLER Electrophysiology:? syncope or seizure as in HPI. will plan ILR. chino Garcia CASKET ASSEMBLER Electrophysiology: B P today: 127/79 P rior BP: 152/86 (02/21/2021) Labs Reviewed: C reat: 0.85 (02/13/2021) C hol: 198 (05/31/2020) HDL: 70 (05/31/2020) Her updated medication list for this problem includes: Valsartan 40 Mg Tablet (Valsartan) ..... Take 1 tablet by mouth once daily Hydrochlorothiazide 12.5 Mg Tablet (Hydrochlorothiazide) ..... Take 1 tablet by mouth once a day Coreg 25 Mg Tablet (Carvedilol) ..... 1 tablet twice a day Lakesha Garcia NP Electrophysiology:kendrick stained VT seen on stress test 2020 Orders: Stress 11/14/2020: P ost ECG: T here were no ischemic ST or T changes. During infusion had a few PVCs. However during the recovery phase this increased in f requency and in fact the patient had sustained VT which did not cause any hemodynamic compromise and resolved s pontaneously. Dr. Galindo was notified. CONCLUSIONS: 1 . Normal sinus rhythm. Normal resting ECG. 2 . Because of the VT this is an abnormal stress. She will be set up to see an EP physician and continue on her BB and labs will b e checked. 3 . Normal myocardial perfusion imaging with no evidence of ischemia or scar. 4 . Left Ventricular Ejection Fraction is 60 %. TID: 0.96. Her updated medication list for this problem includes: Coreg 25 Mg Oral Tablet (Carvedilol) ..... One tab. twice daily 31 second episode of VT, HR 176 bpm documented on remote ILR check 08/12/18. O n EP study 10/06/18, no inducible VT or VF. recent ? syncopal episode. will plan for ILR Lakesha Garcia MANI Electrophysiology:recent telesen try as above Lakesha Garcia MANI Electrophysiology: P t reports that she a couple of months ago, she had what was suspected to have 'syncopal episode.' She states that she wasn't feeling well, she sat down and wake on on the ground, 'scratched my face all up.' She saw her PCP and unable to determine syncope vs seizure. will plan loop recorder. ? syncope. previous EP study with Non-inducible VT Lakesha Garcia MANI Electrophysiology:pt had telesentry 08/25/22 Sinus Rhythm with 1 Ventricular Tachycardia event, 2 paroxysmal Supraventricular Tachycardia events, frequent Ventricular ectopics, and rare Supraventricular ectopics. The average heart rate was 70bpm with a maximum sinus rate of 103bpm and a minimum rate of 54bpm. VT was documented as having 4 beats with a maximum rate of 137bpm. PSVT was documented with the longest event having 7 b eats and a maximum rate measured at 148bpm. VE?s were documented as triplets, couplets, and isolated beats with a total burden of 5.69%. SVE?s were documented as couplets and isolated beats Lakesha Reiddaniel SINGLETON Electrophysiology: p t states that over the last couple of weeks, she has been experiencing intermittent chest pressure, 6/10, unchanged with inspiration or movement, and not associated with any specific activity. occurs at rest and with exertion. radation to L arm and associated with nausea. will check rtroutine stress test and ECHO Lakesha Reiddaniel SINGLETON Electrophysiology Ho spital Follow up : B P today: 152/86 P rior BP: 136/74 (11/15/2020) Labs Reviewed: C reat: 0.85 (02/13/2021) C hol: 198 (05/31/2020) HDL: 70 (05/31/2020) Her updated medication list for this problem includes: Valsartan 40 Mg Oral Tablet (Valsartan) ..... One tab by mouth once daily Coreg 25 Mg Oral Tablet (Carvedilol) ..... One tab. twice daily Hydrochlorothiazide 12.5 Mg Oral Tablet (Hydrochlorothiazide) ..... Take 1 tablet by mouth once daily Miltondami Rodolfo Electrophysiology Ho spital Follow up :STRONGLY ENCOURAGED TO STOP SMOKING; SMOKING CESSATION TECHNIQUES DISCUSSED. sonali Rodolfo Electrophysiology Ho spital Follow up : H er updated medication list for this problem includes: Coreg 25 Mg Oral Tablet (Carvedilol) ..... One tab. twice daily Orders: 9 12 Minor 10-19min (CPT-04719) [facility] Follow up : H er updated medication list for this problem includes: Coreg 25 Mg Oral Tablet (Carvedilol) ..... One tab. twice daily Orders: E KG (CPT-72619) M onitor - Telemetry (Mobile Cardiac) (CPT-17390) 9 12 Minor 10-19min (CPT-55230) [facility] Fo llow up : B P today: 136/74 P rior BP: 142/80 (11/05/2020) Labs Reviewed: C reat: 0.80 (11/15/2020) C hol: 198 (05/31/2020) HDL: 70 (05/31/2020) Her updated medication list for this problem includes: Valsartan 40 Mg Oral Tablet (Valsartan) ..... One tab by mouth once daily Coreg 25 Mg Oral Tablet (Carvedilol) ..... One tab. twice daily Hydrochlorothiazide 12.5 Mg Oral Tablet (Hydrochlorothiazide) ..... Take 1 tablet by mouth once daily lurdessonali Rodolfo Electrophysiology Fo llow up : O rders: C arotid Duplex Bilateral (CPT-60469) [facility] Electrophysiology Fo llow up : S tress test During infusion had a few PVCs. However during the recovery phase this increased in frequency and in fact the patient had sustained VT,. Last monitor 05/2020 Interpretation: R hythm: Sinus Rhythm A vg. heart rate: 71 BPM M in. heart rate: 57 BPM M ax. heart rate: 77 BPM T otal VE: 5522 -- 5.4% [place] 5 015 Isolated 26 Pairs 1 22 Bigeminal 2 5 Trigeminal T otal SVE: 185 -- 0.1% [place] 1 85 Isolated Her updated medication list for this problem includes: Coreg 25 Mg Oral Tablet (Carvedilol) ..... One tab. twice daily Joaquin Reynolds Electrophysiology Fo llow up : s ustained VT seen on stress test yesterday. Orders: P ARTIAL THROMBOPLASTIN TIME, ACTIVATED (763) P ROTHROMBIN TIME WITH INR (8847) C BC (INCLUDES DIFF/PLT) (6399) B ASIC METABOLIC PANEL W/EGFR (82834) C T Cardiac with contrast (Pre-Ablation) (CPT-07530) A BLATION w/ Anesthesia (*) Stress 11/14/2020: P ost ECG: T here were no ischemic ST or T changes. During infusion had a few PVCs. However during the recovery phase this increased in f requency and in fact the patient had sustained VT which did not cause any hemodynamic compromise and resolved s pontaneously. Dr. Galindo was notified. CONCLUSIONS: 1 . Normal sinus rhythm. Normal resting ECG. 2 . Because of the VT this is an abnormal stress. She will be set up to see an EP physician and continue on her BB and labs will b e checked. 3 . Normal myocardial perfusion imaging with no evidence of ischemia or scar. 4 . Left Ventricular Ejection Fraction is 60 %. TID: 0.96. Her updated medication list for this problem includes: Coreg 25 Mg Oral Tablet (Carvedilol) ..... One tab. twice daily 31 second episode of VT, HR 176 bpm documented on remote ILR check 08/12/18. O n EP study 10/06/18, no inducible VT or VF. Joa[facility] Follow up [facility] Follow up [facility] Follow up [facility] Follow up [facility] Follow up [facility] Follow up [facility] Follow up Gabriel Mesa wrong doctor :5.4% on holter Bong Castro MD Cardiology follow up Caesar crowe MD Cardiology follow up :maethruner lef stented n ml pro, neg standfdin venojus doppler Caesar Castro MD Cardiology follow up : n ml pro and ef 60 Caesar Castro MD Cardiology follow up Caesar crowe MD Cardiology follow up Caesar crowe MD Cardiology follow up : H er updated medication list for this problem includes: Valsartan 40 Mg Oral Tablet (Valsartan) ..... One tab by mouth once daily Coreg 25 Mg Oral Tablet (Carvedilol) ..... One tab. twice daily Hydrochlorothiazide 12.5 Mg Oral Tablet (Hydrochlorothiazide) ..... Take 1 tablet by mouth once daily BP today: 157/74 P rior BP: 147/87 (05/30/2020) L abs Reviewed: C reat: 0.91 (05/31/2020) C hol: 198 (05/31/2020) HDL: 70 (05/31/2020) Caesar Castro MD Cardiology follow up :neg uacr n eg ct belly amd brarin ct, neg lipase and amuylase, neg cta carotisd n ml folate and rpr and carodi dupelx, b12 neg Caesar Castro MD Cardiology follow up : C ompliant with CPAP. Caesar Castro MD Cardiology follow up : 6 .3 Caesar Castro MD Cardiology follow up : s core 130, 35 in lm neg nuc 12, neg cor agno 16 Her updated medication list for this problem includes: Coreg 25 Mg Oral Tablet (Carvedilol) ..... One tab. twice daily Caesar Castro MD Cardiology follow up Caesar crowe MD Cardiology follow up : T he patient is between 55-77 years old and has smoked at least 30 pack years. The patient is either a current smoker or has quit within the past 15 years. T he patient is recommended to have low dose CT scan for lung cancer screening. Has been counseled regarding the importance of tobacco cessation and abstinence. Shared decision making during this office visit included discussion of the benefits and harms of screening, possible future recommendations of follow-up diagnostic testing, and total amount of radiation exposure. The patient was recommended to have annual low dose CT scan for lung cancer screening and is willing to undergo diagnosis and treatment. Caesar Castro MD :nml pro and ef 60 Caesar Castro MD :score 130, 35 in lm neg nuc 12, neg cor agno 16 Caesar Castro MD :6.3 Caesar Castro MD Cardiology follow up : T he following medications were removed from the medication list: Aspirin Adult Low Dose 81 Mg Oral Tablet Delayed Release (Aspirin) ..... One tab by mouth daily Cozaar 50 Mg Oral Tablet (Losartan potassium) ..... One tab. daily Her updated medication list for this problem includes: Coreg 25 Mg Oral Tablet (Carvedilol) ..... One tab. twice daily Hydrochlorothiazide 12.5 Mg Oral Tablet (Hydrochlorothiazide) ..... Take 1 tablet by mouth once daily BP today: 147/87 P rior BP: 148/77 (10/14/2018) Labs Reviewed: C reat: 0.84 (10/01/2018) C hol: 179 (10/04/2018) HDL: 61 (10/04/2018) Caesar Castro MD Cardiology follow up Caesar crowe MD Cardiology follow up Caesar crowe MD Cardiology follow up Caesar crowe MD Cardiology follow up :5.9 Caesar Castro MD Cardiology follow up :neg ncu [address] neg cor agnion 2015 Caesar Castro MD Cardiology follow up :nml pro Fuentes tran Castro MD Cardiology follow up Caesar crowe MD Cardiology follow up : n eg ct belly amd brarin ct, neg lipase and amuylase, neg cta carotisd n ml folate and rpr and carodi dupelx, b12 neg Caesar Castro MD Cardiology follow up : l eft, neg vd stading, neg pro, ? oconnell cyndieurne Caesar Castro MD Cardiology follow up :not seen in fu 3 1 second episode of VT, HR 176 bpm documented on remote ILR check 08/12/18. O n EP study 10/06/18, no inducible VT or VF. Caesar Castro MD [facility] Follow up: C ompliant with CPAP. [facility] Follow up: O rders: E KG (CPT-78253) 9 9214 MOD Complex (CPT-32445) S chedule Followup (*) Her updated medication list for this problem includes: Coumadin 5 Mg Oral Tablet (Warfarin sodium) ..... Take 1 tab daily with evening meal. start first dose on sep.29 Aspirin Adult Low Dose 81 Mg Oral Tablet Delayed Release (Aspirin) ..... One tab by mouth daily Coreg 12.5 Mg Oral Tablet (Carvedilol) ..... One tab. twice daily [facility] Follow up: 3 1 second episode of VT, HR 176 bpm documented on remote ILR check 08/12/18. O n EP study 10/06/18, no inducible VT or VF. Her updated medication list for this problem includes: Coumadin 5 Mg Oral Tablet (Warfarin sodium) ..... Take 1 tab daily with evening meal. start first dose on sep.29 Aspirin Adult Low Dose 81 Mg Oral Tablet Delayed Release (Aspirin) ..... One tab by mouth daily Coreg 12.5 Mg Oral Tablet (Carvedilol) ..... One tab. twice daily [facility] Follow up: E P study on 10/06/18 revealed inducible typical AFlutter, which was successfully ablated. Orders: 9 9214 MOD Complex (CPT-74965) S chedule Followup (*) Her updated medication list for this problem includes: Coumadin 5 Mg Oral Tablet (Warfarin sodium) ..... Take 1 tab daily with evening meal. start first dose on sep.29 Aspirin Adult Low Dose 81 Mg Oral Tablet Delayed Release (Aspirin) ..... One tab by mouth daily Coreg 12.5 Mg Oral Tablet (Carvedilol) ..... One tab. twice daily Arvin Jean Electrophysiology: O rders: C omplete Echo (CPT-84553) 9 9214 MOD Complex (CPT-54238) S chedule Followup (*) Arvin Jean Electrophysiology: O rders: F VC - 39530 (71135) F RC - 62082 (97852) D LCO - 42338 (46958) 9 9214 MOD Complex (CPT-10884) S chedule Followup (*) Arvin Jean Electrophysiology: B P today: 137/77 P rior BP: 144/82 (08/30/2018) Labs Reviewed: C reat: 0.8 (03/18/2017) C hol: 203.0 (03/18/2017) HDL: 69.0 (03/18/2017) T.0 (03/18/2017) Her updated medication list for this problem includes: Aspirin Adult Low Dose 81 Mg Oral Tablet Delayed Release (Aspirin) ..... One tab by mouth daily Cozaar 50 Mg Oral Tablet (Losartan potassium) ..... One tab. daily Coreg 12.5 Mg Oral Tablet (Carvedilol) ..... One tab. twice daily Hydrochlorothiazide 12.5 Mg Oral Tablet (Hydrochlorothiazide) ..... Daily Arvin Jean Electrophysiology: O rders: 9 9214 MOD Complex (CPT-12237) S chedule Followup (*) Her updated medication list for this problem includes: Aspirin Adult Low Dose 81 Mg Oral Tablet Delayed Release (Aspirin) ..... One tab by mouth daily Coreg 12.5 Mg Oral Tablet (Carvedilol) ..... One tab. twice daily Arvin Jean Electrophysiology: P atient unable to walk more than 1 block without needing to catch her breath. Will schedule Adenosine nuclear stress test. Orders: S TR - Adenosine (CPT-65068) 9 9214 MOD Complex (CPT-92297) S chedule Followup (*) Her updated medication list for this problem includes: Aspirin Adult Low Dose 81 Mg Oral Tablet Delayed Release (Aspirin) ..... One tab by mouth daily Coreg 12.5 Mg Oral Tablet (Carvedilol) ..... One tab. twice daily Arvin Miranda Electrophysiology: 3 1 second episode of VT, HR 176 bpm documented on remote ILR check 08/12/18. W ill plan for EP study with ablation at [facility] on 10/06/18. Orders: E KG (CPT-94399) ABLATION w/ Anesthesia (*) 9 9214 MOD Complex (CPT-41333) S chedule Followup (*) Her updated medication list for this problem includes: Aspirin Adult Low Dose 81 Mg Oral Tablet Delayed Release (Aspirin) ..... One tab by mouth daily Coreg 12.5 Mg Oral Tablet (Carvedilol) ..... One tab. twice daily Arvin Jean Cardiology follow up Caesar crowe MD Cardiology follow up : H er updated medication list for this problem includes: Cozaar 50 Mg Oral Tablet (Losartan potassium) ..... One tab. daily Coreg 12.5 Mg Oral Tablet (Carvedilol) ..... One tab. twice daily Hydrochlorothiazide 12.5 Mg Oral Tablet (Hydrochlorothiazide) ..... Daily Caesar Castro MD Cardiology follow up Caesar crowe MD Cardiology follow up Caesar crowe MD Cardiology follow up : T he patient has been using their CPAP device at least 4 hours at night, at least 5 days per week and has noticed sleep apnea symptoms improved, including improved energy, decreased daytime sleepiness, decreased awakenings, and improved sleep quality. Caesar Castro MD Cardiology follow up : n eg ct belly amd brarin ct, neg pro lipase and amuylase, neg cta carotisd n ml folate and rpr and carodi dupelx, b12 neg Caesar Castro MD Cardiology follow up Caesar crowe MD Cardiology follow up : s ill dizzy loop shows vt n eg carotid and ct brain, told she has sz an on rx Caesar Castro MD Cardiology follow up : T he patient is between 55-77 years old and has smoked at least 30 pack years. The patient is either a current smoker or has quit within the past 15 years. T he patient is recommended to have low dose CT scan for lung cancer screening. Has been counseled regarding the importance of tobacco cessation and abstinence. Shared decision making during this office visit included discussion of the benefits and harms of screening, possible future recommendations of follow-up diagnostic testing, and total amount of radiation exposure. The patient was recommended to have annual low dose CT scan for lung cancer screening and is willing to undergo diagnosis and treatment. Caesar Castro MD Cardiology follow up :seen on ct neg cor agnion 2015 Caesar Castro MD Cardiology follow up :176 for 31 secs, likely need aaicd Caesar Castro MD Cardiology follow up Caesar crowe MD Cardiology follow up:does not wa nt det pill Caesar Castro MD Cardiology follow up :pt does not want to change rx today Caesar Castro MD Cardiology follow up : n ormalixed on rx with iv iorn, up tod ate with colon Caesar Castro MD Cardiology follow up : s ill dizzy, looep neg so far, pvc n eg carotid and ct brain, told she has sz an on rx Caesar Castro MD Cardiology follow up:on rx now H marck Castro MD Cardiology follow up : m ild should bedtter now on rose marie rx Caesar Castro MD Cardiology follow up:with ecp Fuentes tran Castro MD Cardiology follow up :left, neg vd stading, neg pro, ? oconnell thurne Caesar Castro MD Cardiology follow up :neg ct belly amd brarin ct, neg pro lipase and amuylase, neg cta carotisd n ml folate and rpr and carodi dupelx, b12 neg Caesar Castro MD Cardiology follow up:rare on loo p Caesar Castro MD Cardiology follow up :The patient is between 55-77 years old and has smoked at least 30 pack years. The patient is either a current smoker or has quit within the past 15 years. T he patient is recommended to have low dose CT scan for lung cancer screening. Has been counseled regarding the importance of tobacco cessation and abstinence. Shared decision making during this office visit included discussion of the benefits and harms of screening, possible future recommendations of follow-up diagnostic testing, and total amount of radiation exposure. The patient was recommended to have annual low dose CT scan for lung cancer screening and is willing to undergo diagnosis and treatment. Caesar Castro MD Cardiology follow up:pft now nor mal Caesar Csatro MD Cardiology Follow up :DID NOT TO L QUSIMAI Caesar Castro MD Cardiology Follow up aCesar crowe MD Cardiology Follow up : s ill dizzy, looep neg so far n eg carotid Caesar Castro MD Cardiology Follow up :will add d iovan Caesar Castro MD Cardiology Follow up :getting ec p Caesar Castro MD Cardiology Follow up :nml folate and rpr and carodi dupelx, b12 neg Caesar Castro MD Cardiology Follow up :CHOL: 213.0 (10/22/2016) HDL: 80.0 (10/22/2016) T.0 (10/22/2016) Her updated medication list for this problem includes: Lovastatin 20 Mg Tabs (Lovastatin) ..... One tab. daily Caesar Castro MD Cardiology Follow up Caesar crowe MD Cardiology Follow up :normalixed on rx with iv iorn Caesar Castro MD Cardiology Follow up Buddy cardenas MD Cardiology Follow up Buddy cardenas MD Cardiology Follow up Buddy cardenas MD Cardiology Follow up Buddy cardenas MD Cardiology Follow up Buddy cardenas MD Cardiology;clindsesk down:roosevelt Castro MD Cardiology;clindsesk down:This patient has angina (defined as chest pain, chest discomfort, or pain in arms, neck, jaw, shoulder, or back, and may include symptoms of shortness of breath, fatigue, dizziness, nausea, or diaphoresis) of [place] Cardiovascular Society Class III (defined as symptoms with everyday living activities, i.e. moderate limitation) or [place] Cardiovascular Society Class IV (defined as inability to perform any activity without angina or angina at rest, i.e. severe limitation). T his patient?s angina is disabling and in my opinion is not readily amenable to surgical intervention by PTCA or cardiac bypass because the patient's coronary anatomy is not readily amenable to such procedures. Caesar Castro MD Cardiology;clindsesk down:This patient has angina (defined as chest pain, chest discomfort, or pain in arms, neck, jaw, shoulder, or back, and may include symptoms of shortness of breath, fatigue, dizziness, nausea, or diaphoresis) of [place] Cardiovascular Society Class III (defined as symptoms with everyday living activities, i.e. moderate limitation) or [place] Cardiovascular Society Class IV (defined as inability to perform any activity without angina or angina at rest, i.e. severe limitation). Caesar Castro MD Cardiology;clindsesk down:shannon arevalo neg so far Caesar Castro MD Cardiology;clindsesk down:CHOL: 213.0 (10/22/2016) HDL: 80.0 (10/22/2016) T.0 (10/22/2016) Her updated medication list for this problem includes: Lovastatin 20 Mg Tabs (Lovastatin) ..... One tab. daily Caesar Castro MD Cardiology;clindsesk down:had two infusions but bled more with srugery, b12 ok, hct ok Caesar Castro MD Cardiology:Diet controlled Richard Gonzales MD Cardiology:On lovastatin. Ann Marie Gonzales MD Cardiology:No symptoms at presen t. Gloria Gonzales MD Cardiology:No furthe r syncopal episodes since the ILR was placed, but she continues to have dizziness, light headedness, and at times has felt she would pass out, at which time she would sit down until the feelign passess. The etiology of this is unclear. She may benefit from a neurological evaluation. Gloria Gonzales MD Cardiology Follow up :will need loop, could be cough related Caesar Castro MD Cardiology Follow up : H er updated medication list for this problem includes: Cartia Xt 120 Mg Oral [id number] (Diltiazem hcl coated beads) ..... One a day BP today: 159/88 P rior BP: 134/80 (05/28/2016) Labs Reviewed: C hol: 193.0 (04/23/2016) HDL: 72.0 (04/23/2016) T.0 (04/23/2016) Caesar Castro MD Cardiology Follow up :wants stro nger dose Caesar Castro MD Cardiology Follow up :mild should be bedtter now on rose marie rx Caesar Castro MD Cardiology Follow up : p os nuc with neg cath, coudl be microvasuclar or false pos nuc, coud do ecp if persist, neg groin us Caesar Castro MD Cardiology Follow up :The patient has been using their CPAP device at least 4 hours at night, at least 5 days per week and has noticed sleep apnea symptoms improved, including improved energy, decreased daytime sleepiness, decreased awakenings, and improved sleep quality. p t thinks she needs adjsumet Caesar Castro MD Cardiology:will try diet pill Alfredo Castro MD Cardiology:having titration kristine ght Caesar Castro MD Cardiology:pos nuc w ith neg cath, coudl be microvasuclar or false pos nuc, coud do ecp if persist Caesar Castro MD Cardiology:could be psuedo post cath, will ultrasound and stop asa Caesar Castro MD Cardiology:nml pro Caesar Castro MD Cardiology: T he following medications were removed from the medication list: Aspirin Ec 81 Mg Tbec (Aspirin) ..... One tab daily Her updated medication list for this problem includes: Cartia Xt 120 Mg Oral [id number] (Diltiazem hcl coated beads) ..... One a day BP today: 134/80 P rior BP: 120/88 (05/11/2016) Labs Reviewed: C hol: 193.0 (04/23/2016) HDL: 72.0 (04/23/2016) LDL: 97.8 (?) (04/23/2016) T.0 (04/23/2016) Caesar Castro MD Cardiology: H er updated medication list for this problem includes: Lovastatin 20 Mg Tabs (Lovastatin) ..... One tab. daily C HOL: 193.0 (04/23/2016) LDL: 97.8 (?) (04/23/2016) HDL: 72.0 (04/23/2016) T.0 (04/23/2016) Caesar Castro MD Cardiology: h ad spell with monitor off, neg duplex less dizzy without hyzar, on lower dose of cardia R ECCURANT, HAD NEG BRAIN CT PER PT, CBC AND CMP NORMAL, BP MEDS RELATEED? has montor & #13;if tele neg may need loop recoreder T he following medications were removed from the medication list: Aspirin Ec 81 Mg Tbec (Aspirin) ..... One tab daily Her updated medication list for this problem includes: Cartia Xt 120 Mg Oral [id number] (Diltiazem hcl coated beads) ..... One a day Caesar Castro MD Cardiology:pos nuc w ith neg cath, coudl be microvasuclar or false pos nuc Caesar Castro MD Cardiology:pap sytol ic 48, due to rose marie? to have study or copd Caesar Castro MD Cardiology:Pulmonary Function Diagnosis: M inimal Obstructive Airways Disease N o significant Restriction M inimal Diffusion Defect Caesar Castro MD :cath showed no cad and pa 52 and ra 20 due to rose marie?, nml ef Caesar Castro MD Cardiology;sleep and pft pednign;lhc first, if neg rhc:pft pdneing, pro normal Caesar Castro MD Cardiology;sleep and pft pednign;lhc first, if neg rhc:1. Normal left ventricular systolic function. Normal left ventricular size. Normal left ventricular wall t hickness. There is E to A wave reversal consistent with impaired LV relaxation. Normal E/E` 7.0. Left v entricular ejection fraction is estimated at 60 %. 2 . There is mild enlargement of the left atrium. LA volume is 56 mL. 3 . The mitral valve is normal in appearance and function. No mitral valve regurgitation is seen. 4 . Aortic valve leaflets appear structurally normal. Velocities, as well as gradients across the aortic v alve are normal. No evidence of aortic insufficiency. 5 . The tricuspid valve is normal in appearance and function. No evidence of tricuspid regurgitation. I VC is normal in size with normal respiratory response. Unable to adequately assess the RVSP. Caesar Castro MD Cardiology;sleep and pft pednign;lhc first, if neg rhc: H er updated medication list for this problem includes: Lovastatin 20 Mg Tabs (Lovastatin) ..... One tab. daily C HOL: 193.0 (04/23/2016) LDL: 97.8 (?) (04/23/2016) HDL: 72.0 (04/23/2016) T.0 (04/23/2016) Caesar Castro MD Cardiology;sleep and pft pednign;lhc first, if neg rhc:home sleep sutdy pending Caesar Castro MD Cardiology;sleep and pft pednign;lhc first, if neg rhc:6.1 Caesar Castro MD Cardiology;sleep and pft pednign;lhc first, if neg rhc:mildly abnl nuc, will cahrt Caesar Castro MD Cardiology;sleep and pft pednign;lhc first, if neg rhc:left leg, neg standing doppler, ? barbara Castro MD Cardiology;sleep and pft pednign;lhc first, if neg rhc: T he following medications were removed from the medication list: Losartan Potassium-hctz 50-12.5 Mg Oral Tabs (Losartan potassium-hctz) ..... Once daily Her updated medication list for this problem includes: Aspirin Ec 81 Mg Tbec (Aspirin) ..... One tab daily Cartia Xt 120 Mg Oral [id number] (Diltiazem hcl coated beads) ..... One a day BP today: 120/88 P rior BP: 126/70 (04/22/2016) Labs Reviewed: C hol: 193.0 (04/23/2016) HDL: 72.0 (04/23/2016) LDL: 97.8 (?) (04/23/2016) T.0 (04/23/2016) Caesar Castro MD Cardiology;sleep and pft pednign;lhc first, if neg rhc:had spell with monitor off, neg duplex less dizzy without hyzar, will cut cartia to lower dose R ECCURANT, HAD NEG BRAIN CT PER PT, CBC AND CMP NORMAL, BP MEDS RELATEED? WILL DE SOUZA H er updated medication list for this problem includes: Aspirin Ec 81 Mg Tbec (Aspirin) ..... One tab daily Cartia Xt 120 Mg Oral [id number] (Diltiazem hcl coated beads) ..... One a day Caesar Castro MD Cardiology:NOT ON RX, NEEDS SPLI T STUDY Caesar Castro MD Cardiology: H er updated medication list for this problem includes: Lovastatin 20 Mg Tabs (Lovastatin) ..... One tab. daily Caesar Castro MD Cardiology:LEFT LEG ON LSY Dietermere karen Castro MD Cardiology Caesar Castro MD Cardiology:RECCURANT , HAD NEG BRAIN CT PER PT, CBC AND CMP NORMAL, BP MEDS RELATEED? WILL [facility] er updated medication list for this problem includes: Aspirin Ec 81 Mg Tbec (Aspirin) ..... One tab daily Cartia Xt 240 Mg Cp24 (Diltiazem hcl coated beads) ..... One tab. daily DO NOT TAKE BOTH BP SAME TIME Caesar Castro MD Cardiology: H er updated medication list for this problem includes: Aspirin Ec 81 Mg Tbec (Aspirin) ..... One tab daily Cartia Xt 240 Mg Cp24 (Diltiazem hcl coated beads) ..... One tab. daily Losartan Potassium-hctz 50-12.5 Mg Oral Tabs (Losartan potassium-hctz) ..... Once daily BP today: 126/70 Caesar Castro MD Date Name Holter Monitor 48 hr DLCO - 00373 FRC - 00062 FVC - 97965 Stress Regadenoson Arterial Duplex Bi-L ower EX Arterial - SENSILASE Loop Rec Implant - S [facility] CXR- PA/Lat Stress Routine Complete Echo DLCO - 08509 FRC - 79857 FVC - 60317 Carotid Duplex Bilat eral Monitor - Telemetry (Mobile Cardiac) SED RATE BY MODIFIED WESTERGREN C-REACTIVE PROTEIN BASIC METABOLIC PANE L W/EGFR CBC (INCLUDES DIFF/P LT) Partial Thromboplast in Time, Activated PROTHROMBIN TIME WIT H INR ABLATION w/ Anesthes ia CT Cardiac with cont rast (Pre-Ablation) BASIC METABOLIC PANE L W/EGFR CBC (INCLUDES DIFF/P LT) PROTHROMBIN TIME WIT H INR PARTIAL THROMBOPLAST IN TIME, ACTIVATED Carotid Duplex Bilat eral MAGNESIUM BASIC METABOLIC PANE L W/EGFR Stress Exercise Card iolite Venous Doppler Bilat eral LE - Reflux LIPID PANEL Holter Monitor 24 Hr DLCO - 29280 FRC - 53816 FVC - [address] Thyroid Ultrasound Thyroid Ultrasound Thyroid Ultrasound CT Chest without con trast URINALYSIS, COMPLETE W/REFLEX TO CULTURE CT, Coronary Calcium Score Device Removal - [facility] V Low Dose Lung CT PROTHROMBIN TIME WIT H INR LIPID PANEL CBC (INCLUDES DIFF/P LT) BASIC METABOLIC PANE L W/EGFR Venogram w/ IVUS - S [facility] Complete Echo LIPID PANEL IRON AND TOTAL IRON BINDING CAPACITY FERRITIN CBC (INCLUDES DIFF/P LT) Vitamin D, 25-Hydrox y HEMOGLOBIN A1c DLCO - 81677 FRC - 96782 FVC - 90369 Covid Antibody Igg TSH, free T4, total T3 Holter Monitor 24 Hr Vitamin D, 25-Hydrox y HEMOGLOBIN A1c LIPID PANEL PARTIAL THROMBOPLAST IN TIME, ACTIVATED BASIC METABOLIC PANE L W/EGFR CBC (INCLUDES DIFF/P LT) ABLATION w/ Anesthes ia STR - Adenosine Complete Echo DLCO - 68934 FRC - 67443 FVC - 79861 DLCO - 58999 FRC - 87378 FVC - 64680 PROTHROMBIN TIME WIT H INR LIPID PANEL CBC (INCLUDES DIFF/P LT) BASIC METABOLIC PANE L W/EGFR Vitamin D, 25-Hydrox y CT, Coronary Calcium Score Complete Echo Low Dose Lung CT URINALYSIS, RANDOM, MICROALB/CREATININE HEMOGLOBIN A1c LIPID PANEL BASIC METABOLIC PANE L W/EGFR PROBNP, N TERMINAL DLCO - 17126 FRC - 35095 FVC - 98880 Vitamin D, 25-Hydrox y PROBNP, N TERMINAL BASIC METABOLIC PANE L W/EGFR LIPID PANEL URINALYSIS, RANDOM, MICROALB/CREATININE HEMOGLOBIN A1c BASIC METABOLIC PANE L W/EGFR Complete Echo Low Dose Lung CT CBC (INCLUDES DIFF/P LT) HEMOGLOBIN A1c CT Abdomen w/o contr ast LIPASE AMYLASE COMPREHENSIVE METABO LIC PANEL, W/EGFR CT Head w/o contrast LIPID PANEL PROBNP, N TERMINAL DLCO - 32502 FRC - 80913 FVC - 90581 Complete Echo DLCO - 19444 FRC - 13072 FVC - 67232 FOLATE, SERUM ECP - Medicare RPR (MONITOR) W/REFL TITER VITAMIN D, 25-HYDROX Y, LC/MS/MS Complete Echo IRON AND TOTAL IRON BINDING CAPACITY FERRITIN URINALYSIS, COMPLETE W/REFLEX TO CULTURE LIPID PANEL CBC (INCLUDES DIFF/P LT) DLCO - 57067 FRC - 75505 FVC - 45844 X-Ray, Chest, PA & L ateral PARTIAL THROMBOPLAST IN TIME, ACTIVATED PROTHROMBIN TIME WIT H INR BASIC METABOLIC PANE L W/EGFR Loop Rec Implant - G C FERRITIN CBC (INCLUDES DIFF/P LT) IRON AND TOTAL IRON BINDING CAPACITY Complete Echo Arterial Duplex RLE Cardiac Cath - Left - GC PARTIAL THROMBOPLAST IN TIME, ACTIVATED PROTHROMBIN TIME WIT H INR CBC (INCLUDES DIFF/P LT) COMPREHENSIVE METABO LIC PANEL W/EGFR Sleep Study - split night Renal Artery Duplex C-REACTIVE PROTEIN LIPID PANEL Venous Doppler Bilat eral LE - Standing VITAMIN D, 25-HYDROX Y, LC/MS/MS HEMOGLOBIN A1c VITAMIN B12 THYROID PANEL WITH T SH, 3RD GENERATION PROBNP, N TERMINAL Carotid Duplex Bilat eral Mobile Cardiac Tele STR - Nuclear Complete Echo DLCO - 59538 FRC - 06194 FVC - 55221 HISTORY OF PROCEDURES Procedure Date Procedure Name Provider Procedure Notes S tatus EKG Gutierrez miller MD completed EKG Gutierrez miller MD completed Mobile Cardiac Telemetry - Tech Gutierrez Melendez MD completed Mobile Cardiac Telemetry - Prof Gutierrez Melendez MD completed EKG Gutierrez miller MD completed EKG Gutierrez miller MD completed Counseling LDCT Caesar Castro MD se[t com pleted Thyroid Ultrasound Caesar Castro MD completed FVC / MVV with bronchodilator - 11519 Caesar Castro MD completed BLOOD COUNT HEMOGLOBIN Caesar Castro MD completed FRC - 76616 Caesar Castro MD complet ed SpO2 w/o 6min walk/titration Caesar Castro MD completed DLCO - 31481 Caesar Castro MD comple nedra CT- Coronary CA score Caesar Castro MD completed Counseling LDCT Caesar Castro MD com pleted EKG Caesar Castro MD complete d Loop Recorder Interrogation, Remote Caesar Serotguillermo WHEELER INTERROGATION EVALUATION REMOTE </30 D ILR SYS completed ICM Interrogation, Remote (Tech) Caesar Serotguillermo WHEELER INTERROGATION EVAL REMOTE </30 D TECH REVIEW completed Loop Recorder Interrogation, Remote Caesar Serota INTERROGATION EVALUATION REMOTE </30 D ILR SYS completed ICM Interrogation, Remote (Tech) Caesar Serotguillermo WHEELER INTERROGATION EVAL REMOTE </30 D TECH REVIEW completed Loop Recorder Interrogation, Remote Caesar Serota INTERROGATION EVALUATION REMOTE </30 D ILR SYS completed ICM Interrogation, Remote (Tech) Caesar Serotguillermo WHEELER INTERROGATION EVAL REMOTE </30 D TECH REVIEW completed Loop Recorder Interrogation, Remote Caesar Serota INTERROGATION EVALUATION REMOTE </30 D ILR SYS completed ICM Interrogation, Remote (Tech) Caesar Serota INTERROGATION EVAL REMOTE </30 D TECH REVIEW completed Loop Recorder Interrogation, Remote Caesar Serota MD INTERROGATION EVALUATION REMOTE </30 D ILR SYS completed ICM Interrogation, Remote (Tech) Caesar Serota INTERROGATION EVAL REMOTE </30 D TECH REVIEW completed Loop Recorder Interrogation, Remote Caesar Serota MD INTERROGATION EVALUATION REMOTE </30 D ILR SYS completed ICM Interrogation, Remote (Tech) Caesar Serota INTERROGATION EVAL REMOTE </30 D TECH REVIEW completed Loop Recorder Interrogation, Remote Caesar Serota MD INTERROGATION EVALUATION REMOTE </30 D ILR SYS completed ICM Interrogation, Remote (Tech) Caesar Serota MD INTERROGATION EVAL REMOTE </30 D TECH REVIEW completed Loop Recorder Interrogation, Remote Caeasr Serota MD INTERROGATION EVALUATION REMOTE </30 D ILR SYS completed ICM Interrogation, Remote (Tech) Caesar Castro MD INTERROGATION EVAL REMOTE </30 D TECH REVIEW completed Schedule Followup Gutierrez lopez MD in [address] Castro completed EKG Gutierrez miller MD completed Protime Caesar Castro MD complete d Jose Del Cid MD complet ed Loop Recorder Interrogation, Remote Caesar Castro MD INTERROGATION EVALUATION REMOTE </30 D ILR SYS completed ICM Interrogation, Remote (Tech) Caesar Castro MD INTERROGATION EVAL REMOTE </30 D TECH REVIEW completed FVC / MVV with bronchodilator - 18699 Caesar Castro MD completed BLOOD COUNT HEMOGLOBIN Caesar Castro MD completed FRC - 84192 Caesar Castro MD complet ed SpO2 w/o 6min walk/titration Caesar Castro MD completed DLCO - 27907 Caesar Castro MD comple nedra Stress EKG Gloria Gonzales MD complet ed Regadenoson, 4 units Gloria Gonzales MD completed Cardiolite, 2 units Gloria Gonzalse MD completed SPECT Images Gloria Gonzales MD compl eted Schedule Followup Gutierrez lopez MD completed EKG Gutierrez miller MD completed Counseling LDCT Caesar Castro MD ausugst com pleted EKG Caesar Castro MD complete d Loop Recorder Interrogation, Remote Caesar Castro MD INTERROGATION EVALUATION REMOTE </30 D ILR SYS completed ICM Interrogation, Remote (Tech) Caesar Castro MD INTERROGATION EVAL REMOTE </30 D TECH REVIEW completed Loop Recorder Interrogation, Remote Caesar Castro MD INTERROGATION EVALUATION REMOTE </30 D ILR SYS completed ICM Interrogation, Remote (Tech) Caesar Serota MD INTERROGATION EVAL REMOTE </30 D TECH REVIEW completed Loop Recorder Interrogation, Remote Caesar Serota MD INTERROGATION EVALUATION REMOTE </30 D ILR SYS completed ICM Interrogation, Remote (Tech) Caesar Serota MD INTERROGATION EVAL REMOTE </30 D TECH REVIEW completed Counseling LDCT Caesar Serota com pleted EKG Caesar Serota complete d Loop Recorder Interrogation, Remote Caesar Serota MD INTERROGATION EVALUATION REMOTE </30 D ILR SYS completed ICM Interrogation, Remote (Tech) Caesar Serota MD INTERROGATION EVAL REMOTE </30 D TECH REVIEW completed Loop Recorder Interrogation, Remote Caesar Serota MD INTERROGATION EVALUATION REMOTE </30 D ILR SYS completed ICM Interrogation, Remote (Tech) Caesar Serota MD INTERROGATION EVAL REMOTE </30 D TECH REVIEW completed Loop Recorder Interrogation, Remote Caesar Serota MD INTERROGATION EVALUATION REMOTE </30 D ILR SYS completed ICM Interrogation, Remote (Tech) Caesar Serota MD INTERROGATION EVAL REMOTE </30 D TECH REVIEW completed Loop Recorder Interrogation, Remote Caesar Serota MD INTERROGATION EVALUATION REMOTE </30 D ILR SYS completed ICM Interrogation, Remote (Tech) Caesar Serota MD INTERROGATION EVAL REMOTE </30 D TECH REVIEW completed Loop Recorder Interrogation, Remote Caesar Serota MD INTERROGATION EVALUATION REMOTE </30 D ILR SYS completed ICM Interrogation, Remote (Tech) Caesar Serota MD INTERROGATION EVAL REMOTE </30 D TECH REVIEW completed Loop Recorder Interrogation, Remote Caesar Serota MD INTERROGATION EVALUATION REMOTE </30 D ILR SYS completed ICM Interrogation, Remote (Tech) Caesar Serota MD INTERROGATION EVAL REMOTE </30 D TECH REVIEW completed Loop Recorder Interrogation, Remote Caesar Serota MD INTERROGATION EVALUATION REMOTE </30 D ILR SYS completed ICM Interrogation, Remote (Tech) Caesar Castro MD INTERROGATION EVAL REMOTE </30 D TECH REVIEW completed Loop Recorder Interrogation, Remote Caesar Castro MD INTERROGATION EVALUATION REMOTE </30 D ILR SYS completed ICM Interrogation, Remote (Tech) Caesar Castro MD INTERROGATION EVAL REMOTE </30 D TECH REVIEW completed Loop Recorder Interrogation, Remote Caesar Castro MD INTERROGATION EVALUATION REMOTE </30 D ILR SYS completed ICM Interrogation, Remote (Tech) Caesar Castro MD INTERROGATION EVAL REMOTE </30 D TECH REVIEW completed FVC / MVV with bronchodilator - 52411 Caesar Castro MD completed FRC - 42311 Caesar Castro MD complet ed SpO2 - 01315 Caesar Castro MD comple nedra DLCO - 39639 Caesar Castro MD comple nedra Loop Recorder Interrogation, Remote Caesar Castro MD INTERROGATION EVALUATION REMOTE </30 D ILR SYS completed ICM Interrogation, Remote (Tech) Caesar Castro MD INTERROGATION EVAL REMOTE </30 D TECH REVIEW completed Loop Recorder Interrogation, Remote Caesar Castro MD INTERROGATION EVALUATION REMOTE </30 D ILR SYS completed ICM Interrogation, Remote (Tech) Caesar Castro MD INTERROGATION EVAL REMOTE </30 D TECH REVIEW completed SNOMED-CT: [id number] Current Medications Documented Caesar Castro MD completed Loop Recorder Interrogation, Remote Caesar Castro MD INTERROGATION EVALUATION REMOTE </30 D ILR SYS completed ICM Interrogation, Remote (Tech) Caesar Castro MD INTERROGATION EVAL REMOTE </30 D TECH REVIEW completed SNOMED-CT: [id number] Physical Exam, Performed: Pulse Exam of Foot Buddy Galindo MD completed SNOMED-CT: [id number] Current Medications Documented Buddy Galindo MD completed Loop Recorder Interrogation, Remote Caesar Castro MD INTERROGATION EVALUATION REMOTE </30 D ILR SYS completed ICM Interrogation, Remote (Tech) Caesar Castro MD INTERROGATION EVAL REMOTE </30 D TECH REVIEW completed SNOMED-CT: [id number] Current Medications Documented Caesar Castro MD completed Loop Recorder Interrogation, Remote Caesar Castro MD INTERROGATION EVALUATION REMOTE </30 D ILR SYS completed ICM Interrogation, Remote (Tech) Caesar Castro MD INTERROGATION EVAL REMOTE </30 D TECH REVIEW completed EKG Gloria Gonzales MD complet ed SNOMED-CT: [id number] Current Medications Documented Gloria Gonzales MD completed Loop Recorder Interrogation, Remote Caesar Castro MD INTERROGATION EVALUATION REMOTE </30 D ILR SYS completed ICM Interrogation, Remote (Tech) Caesar Castro MD INTERROGATION EVAL REMOTE </30 D TECH REVIEW completed SNOMED-CT: [id number] Current Medications Documented Caesar Castro MD completed SNOMED-CT: [id number] Smoking Cessation Counseling Caesar Castro MD completed SNOMED-CT: [id number] Current Medications Documented Caesar Castro MD completed SNOMED-CT: [id number] Smoking Cessation Counseling Caesar Castro MD completed SNOMED-CT: [id number] Current Medications Documented Caesar Castro MD completed BLOOD COUNT HEMOGLOBIN Caesar Castro MD completed FVC - 21033 Caesar Castro MD complet ed FRC - 51475 Caesar Castro MD complet ed DLCO - 47367 Caesar Castro MD comple nedra Stress EKG Aldo Haney MD completed Regadenoson, 4 units Caesar Castro MD completed Cardiolite, 2 units Caesar Castro MD completed SPECT Images Buddy Galindo MD complet ed Event Monitor Caesar Castro MD compl eted Event Monitor Caesar Castro MD compl eted SNOMED-CT: [id number] Smoking Cessation Counseling Caesar Castro MD completed SNOMED-CT: [id number] Current Medications Documented Caesar Castro MD completed
--- OUTSIDE RECORDS SUMMARY | 2025-02-13 07:42 | XMS_ITS | Data Portability ---
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 She is here for follow-up of her left foot where she had 2nd and 1st metatarsal shaft fractures from a metal car part it was tall standing up on and the fell over landing on her foot on February 17. She has been working with restrictions. When she has to walk out of the plan she always uses her walker. 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 If she walks more than this she still tends to get pain not on the bottom of the foot anymore but still in the top of the foot. She has noticed a big improvement over last month overall in her symptoms. She does complain now of some redness over the bunion she has on the medial aspect of the left foot MTP joint. That is new for her. It is not hurting. On exam she has no tenderness over the reddened skin. I think that her new shoe is fitting her more tightly in this area. She might need to consider a wider shoe or she may simply be able to have the leather stretched out over the dorsal medial aspect of the median eminence with a ball and ring clamp and I am going to refer her to 1 of the shoe stores that works on shoes such as [place] [employer] or [employer]. Hopefully that will alleviate the extra pressure being applied to her bunion. The sensation now over the dorsum of the 1st webspace is almost normal. She reports just a very subtle sense of tingling on light touch testing there. It is not dysesthetic like it was couple months ago. She had no tenderness over the fractures today. Her x-rays of left foot show that there has been significant progression the degree of bridging of callus which was incomplete on the previous oblique x-ray and now on the oblique x-ray it seems like it is nearly completely mature. I can still see a minimal lucency however but I think we would consider [employer]. I have discussed with her that there is risk of re fracture. I will have her continue on the same restrictions since she has pain the foot if she puts more weight on it. Hopefully will see further improvement over the next month I will see her back at that time. If she is asymptomatic we will not need x-rays. If she is having problems would be prudent to get new x-rays to verify that healing has continued to progress in a positive direction. 20 minutes were spent total care this patient more than half the time spent in [id number] care. Not available 07/30/2023 09:36:56 08/27/2023 08/27/2023 X-rays were obtained today of the left foot which show that the 2nd metatarsal shaft fracture in the 1st metatarsal shaft fracture are both fully healed. There were nondisplaced and they have healed in anatomic alignment. Patient would like to be released to full duty. We will release her with the understanding that if she has too much discomfort we can always put her back on restricted duty as needed. I would like to see her back next January for 1 year follow-up with new x-rays at that time and we will determine any permanent partial impairment at that time. If she has any worsening symptoms or problems arise in the meantime and happy to see her back at any time. 30 minutes were spent total care this patient more than half the time spent in [id number] care. Not available 09/06/2023 15:41:25 01/03/2024 01/03/2024 Impression: Patient has had a crush injury to her left forefoot which resulted in damage to the deep branch of peroneal nerve at the level of the proximal forefoot and minimally displaced left 1st and 2nd metatarsal shaft fractures which healed with non operative treatment. She continues to have some decreased sensation which is probably permanent as we would expect this to have resolved in about 6 months if resolution were to occur. She gets aching at the end of the day when she has been doing a lot of walking and does note that the forefoot swells at the end the day dorsally which is more likely than not going to be an ongoing problem. She may see a little bit of improvement for up to 2 years with respect to the swelling propensity but some end of the day swelling is likely to persist. She is considered to be at maximum medical improvement at this time. I am happy to see her back she has further problems. Not available 01/03/2024 16:55:44 Plan of Treatment Reminders Order Date Submit Date Provider Last Modified By Organization Details Last Modified Time Details Appointments None recorded. Lab hepatic function panel, serum 2022 023 [email or web address] Not available 4 08:58:27 HbA1c (hemoglobin A1c), blood 2022 023 [email or web address] Not available 3 17:12:26 BMP, serum or plasma 2022 023 [email or web address] Not available 3 17:11:08 hepatic function panel, serum 2022 023 [email or web address] Not available 3 17:11:51 CBC w/ auto diff 2022 023 [email or web address] Not available 3 17:12:36 lipid panel, serum 2022 023 [email or web address] Not available 3 17:12:18 TSH, serum or plasma 2022 023 [email or web address] Not available 3 17:12:01 T4, free, serum 2022 023 [email or web address] Not available 3 17:12:09 Referral clarity specialists referral 2022 023 [email or web address] Niki Rivera MD, [address] [facility] , [address], [place], [address], 4 08:58:22 gynecologis t referral - no referral required 2022 023 [email or web address] 4 Arturo Handy MD, [address], [place], [address], 3 14:27:33 Procedures colonoscopy procedure (PROC) - no referral required 2022 023 [email or web address] Mark Irizarry MD, [address], [address], [place], [address], 4 10:21:15 Surgeries None recorded. Imaging XR, foot 2023 024 [facility] [place], [address], [place], [address], 4 18:27:48 XR, foot 2022 023 [email or web address] [facility] [place], [address], [place], [address], 3 16:04:53 XR, foot 2022 023 [facility] [place], [address], [place], [address], 3 10:07:11 MAMMO, screening, digital, bilateral 2022 023 [email or web address] Not available 4 10:21:20 LDCT, chest, for lung cancer screening - no auth required 2022 023 [email or web address] Not available 3 10:32:55 Medication Orders nystatin 100,000 unit/gram topical cream 2022 023 [facility] [address] [place], [address], 3 11:01:24 triamcinolo ne acetonide 0.1 % topical cream 2022 023 [facility] [address] [place], [address], 3 11:01:27 doxycycline hyclate 100 mg tablet [address] [facility] [address] [place], [address], 3 08:55:18 prednisone 20 mg tablet [address] [facility] [address] [place], [address], 3 08:55:27 ergocalcife rol (vitamin D2) 1,250 mcg (50,000 unit) capsule 2022 023 [facility] [address] [place], [address], 3 11:01:27 Patient TargetsNo targets recorded. Patient Instructions Encounter Date Encounter Id Patient Instructions Last Modified By Organization Details Last Modified Time 07/19/2023 [id number] dementia rating scale-2* [email or web address] Not available 07/19/2023 11:11:55 multi-dimensiona health assessment questionnaire* [email or web address] Not available 07/19/2023 11:12:00 care plan* Not available 11:11:51 advance directiv es: care instructions Not available 07/19/2023 11:01:17 advance care planning: care instructions Not available 07/19/2023 11:01:17 [place] Advance Directives Not available 07/19/2023 11:01:17 Personalized a lt Plan and Screening Recommendations Advance Directives - Do you have one? Yes Advance Directives - Do we have your advance directive on file in your health record? No, please bring in a copy at your earliest convenience Primary Prevention/Interven tion (prevents or decreases the chance of common diseases from occurring) Smoking Risk: Smoker Refer to attached smoking cessation handouts Refer to attached handouts and prescription will be sent to pharmacy Continue to consider stopping smoking and call if we can assist you Alcohol Misuse Screening: Negative Weight: Appropriate Overwei ght continue your current weight loss efforts Physical activity: Need more exercise/physical activity minimum of 10-20 minutes of activity that causes mild breathlessness/day Nutrition: Good Average Refer to attached handout Heart-Healthy Diet: After Your Visit Fall Risk (screened today): Low Intermediate Refer to attached handout Preventing Falls: After your Visit Vaccines Pneumococcal: Ordered Recommended today Recommended today, but you have declined No further needed Influenza: Your next one in the fall of this year Chronic Disease Risks Stroke: High Risk I have no recommendations Act edu diagnosis, Continue current treatment plan Heart Attack: High Risk I have no recommendations Act edu diagnosis, Continue current treatment plan Clogging of the Arteries: High risk I have no recommendations Act edu diagnosis, Continue current treatment plan Diabetes: High Risk Active diagnosis, Continue current treatment plan Secondary Prevention/Interven tion (detects treatable diseases before they may cause symptoms, disability, or ) Breast Cancer Screening with mammogram: Your next mammogram: Ordered Cervical/Uterine/Ov maged Cancer Screening: Your next PAP/pelvic in: Referral to registered nurse teacher Osteoporosis Screening: Date Screening Last Performed: Colon Cancer Screening: Colonoscopy Date Screening Last Performed: Eye Disease Screening: Ordered Recommended today Dementia Risk: Low Depression Screening: Negative Positive Active diagnosis, Continue current treatment plan Not available 07/20/2023 14:20:00 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 Referring Physician: Brenda Bowie, Internal Medicine, Encounter Date: 09/02/2023 Results Created Date Observation Date Name Description Value Unit Range Abnormal Flag Note LastModifiedBy Organization Detail LastModifiedTime 06/23/20 23 XR, knee No observ ation record ed. [email or web address] [facility] [place] [address], [place], [address], 06/23/2023 09:02:56 07/02/20 XR, foot No observ ation record ed. [facility] [place] [address], [address], 07/05/2023 14:33:19 07/30/20 XR, foot No observ ation record ed. [facility] [place] [address], [place], [address], 07/30/2023 09:38:31 08/06/2008/06/2023 LDCT, chest , for lung cance r maranda spears No observ ation record ed. [address], [place], [address], 09/02/2023 11:51:49 08/06/2008/06/2023 MAMMO , maranda spears, digit al, bilat eral No observ ation record ed. Not Available 2022 11:51:53 08/24/2008/24/2023 US, liver No observ ation record ed. [facility] [address] [place], [address], 09/02/2023 15:46:10 08/27/20 XR, foot No observ ation record ed. [facility] [place] [address], [place], [address], 09/06/2023 15:42:20 01/03/20 24 XR, foot No observ ation record ed. [facility] [place] [address], [place], [address], 01/03/2024 16:49:52 Result Notes None recorded. 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 713192319 Active 2022 Not Available [facility] 3 16:25:57 Pruritic rash 78296749 Active 2022 Not Available [facility] 3 16:25:58 Pain in left foot 44272435150 9107 Active 2022 Not Available [facility] 3 16:25:57 Vitamin D deficienc y 48198620 Active 2022 Not Available [facility] 3 16:25:57 Osteoporo sis 04840363 Active 2022 Not Available [facility] 3 16:25:58 Closed fracture of metatarsa l bone 10688162 Active 2022 Not Available [facility] 3 16:25:57 Closed fracture of metatarsa l bone 19960787 Active 2022 Jen Rider CMA null, [employer] [facility] [employer] [facility] 3 11:57:41 Osteoarth ritis of right knee joint 82248946080 9100 Active 2022 ZEINAB Garcia null, [employer] [facility] 3 08:32:21 Smoker 15575998 Active 2022 ANA Wilson [address], [address], [place], [address] , [employer] [facility] [employer] [facility] 3 10:56:02 Postmenop ausal bleeding 49120937 Active 2022 ANA Wilson [address], [address], [place], [address] , [facility] [employer] [facility] 3 10:58:21 Acute dermatiti s 61745356 Active 2022 ANA Wilson [address], [address], [place], [address] , [place] [facility] [employer] 3 10:59:16 Liver enzymes level above reference range 677016294 Active 2022 ANA Wilson [address], [address], [place], [address] , [place] [facility] [employer] 3 13:37:43 Ground glass opacity Active 2022 ANA Wilson [address], [address], [place], [address] , [place] [facility] [place] [facility] [employer] 3 11:53:16 Steatosis of liver 034746509 Active 2022 ANA Wilson [address], [address], [place], [address] , [place] [facility] [employer] [facility] 3 11:55:36 Generaliz ed abdominal pain 486087225 Active 2021 Not Available [facility] 3 16:25:57 Disorder of shoulder 583341375 Active Not Available [facility] 3 16:25:57 Benign essential hypertens ion 6711574 Active 2021 Not Available [facility] 3 16:25:57 Fracture of bone 062959805 Active Not Available [facility] 3 16:25:57 Disorder of trunk 802489689 Active Not Available [facility] 3 16:25:57 Seizure disorder 295494582 Active 2021 Not Available [facility] 3 16:25:57 Hyperchol esterolem ia 56790540 Active 2016 Not Available [employer] 3 16:25:57 Chronic obstructi ve pulmonary disease 98523521 Active 2021 Not Available [employer] 3 16:25:57 Pain of right shoulder joint 02034268861 054414 Active 2021 Not Available [employer] 3 16:25:57 Wrist joint pain 424903211 Active Not Available [facility] 3 16:25:57 Partial thickness rotator cuff tear 720592892 Active Not Available [facility] 3 16:25:57 Degenerat edu joint disease of hand 19751199 Active Not Available [facility] 3 16:25:57 Gastroeso phageal reflux disease 345577383 Active 2019 Not Available [facility] 3 16:25:57 Osteoarth ritis of hip 540184456 Active Not Available [facility] 3 16:25:57 Osteoarth ritis of knee 894257580 Active Not Available [facility] 3 16:25:57 Shoulder joint pain 626595917 Active Not Available [facility] 3 16:25:57 Syncope 353899338 Active 2021 Not Available [facility] 3 16:25:57 Family history of malignant neoplasm 836757663 Active 2016 Not Available [facility] 3 16:25:57 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 13431837 Active Not Available [facility] 3 16:25:57 Tear of medial meniscus of knee 512435373 Active 2021 Not Available [facility] 3 16:25:57 Pain in pelvis 21565004 Active 2021 Not Available [facility] 3 16:25:57 Enthesopa thy of hip region 96288001 Active Not Available [facility] 3 16:25:57 Pain of left hip joint 46432382483 9100 Active 2021 Not Available [facility] 3 16:25:57 Depressiv e disorder 50033081 Active 2021 Not Available [facility] 3 16:25:57 Hypertens edu disorder 36387141 Active 2016 Not Available [facility] 3 16:25:57 Osteoarth ritis 979959895 Active Not Available [facility] 3 16:25:57 Periphera l vascular disease 088595404 Active 08/22/ 2022 Not Available [facility] 3 16:25:58 Hypothyro idism 00605758 Active 2021 Not Available [facility] 3 16:25:58 Hypokalem ia 12558270 Active 2021 Not Available [facility] 3 16:25:58 Tubular adenoma of colon 527955788 Active 2021 colonosco py done 12/17/21- she had a >1 cm tubular adenoma at the distal ascending colon that was referred to [facility] Not Available [facility] 3 16:25:58 Pain of right knee joint 73339231410 4100 Active 2021 Not Available [facility] 3 16:25:58 Hip pain 32546498 Active Not Available [facility] 3 16:25:58 Candidias is of skin 87186575 Active 2021 Not Available [facility] 3 16:25:58 Hyperlipi demia 63915949 Active 2021 Not Available [facility] 3 16:25:58 Candidias is of mouth 91535403 Active 2021 Not Available [facility] 3 16:25:58 Impaired glucose tolerance 2078501 Active 2021 Not Available [facility] 3 16:25:58 Notes:Some problems listed i n Document: #[id number] could not be added to this patient's chart. Please review this document and add these problems to the patient's chart manually as needed. Problem Notes None recorded. Procedures Surgical History Date Name Laterality Status Provider Name and Address Organization Details Recorded Time 07/19/20 Medicare Wellness CPT Code, subsequent completed RADHA Jones [employer] [facility] 07/19/2023 10:27:11 04/09/20 Most Recent Bone Density completed ZEINAB Bhardwaj [employer] [facility] 07/16/2023 12:11:34 08/14/20 Date of Last Mammogram completed ZEINAB Bhardwaj [place] [employer] [facility] 07/16/2023 12:11:41 04/15/20 22 Date of Last Colonoscopy completed Not Available [facility] 12/23/2022 04:42:07 10/25/19 15 Total hip arthroplasty completed Not Available [facility] 12/23/2022 04:42:13 10/25/19 13 Total hip arthroplasty completed Not Available [facility] 12/23/2022 04:42:13 Ablation completed Not Available [facility] 04:42:13 Imaging Results Imaging Date Name Status LastModified by Organiz ation Details LastModified Time 06/23/2023 XR, knee completed [email or web address] [facility] [place] [address], [place], [address], 06/23/2023 09:02:56 07/02/2023 XR, foot completed [facility] [place] [address], [place], [address], 07/05/2023 14:33:19 07/30/2023 XR, foot completed [facility] [place] [address], [place], [address], 07/30/2023 09:38:31 08/06/2023 LDCT, chest, for lung cancer screening completed [address] [place], [address], 09/02/2023 11:51:49 08/06/2023 MAMMO, screening, digital, bilateral completed Information not available 09/02/2023 11:51:53 08/24/2023 US, liver completed [facility] [address] [facility] [place], [address], 09/02/2023 15:46:10 08/27/2023 XR, foot completed [facility] [place] [address], [place], [address], 09/06/2023 15:42:20 01/03/2024 XR, foot completed [facility] [place] [address], [place], [address], 01/03/2024 16:49:52 Procedure Notes None recorded. Medical Equipment None Reported. Allergies No known drug allergies Medications Name Sig Start Date Stop Date Status Note LastModified by Organization Details LastModified Time cyclobenzap rine 10 mg tablet 11/13 completed Not Available Not Available Not Available amoxicillin 500 mg capsule 11/13 completed Not Available Not Available Not Available clotrimazol e 10 mg ward Take 1 tablet 5 times a day by oral route as directed. active Not Available Not Available No t Available metformin 500 mg tablet TAKE 1 TABLET BY MOUTH ONCE DAILY active Not Available Not Available No t Available carvedilol 25 mg tablet active Not Available Not Available Not Available doxycycline hyclate 100 mg capsule TAKE 1 CAPSULE BY MOUTH TWICE DAILY WITH MEALS FOR 10 DAYS 03/03 completed Not Available Not Available Not Available carvedilol 12.5 mg tablet TAKE 1 TABLET BY MOUTH TWICE DAILY active Not Available Not Available No t Available clindamycin HCl 300 mg capsule 02/05 completed Not Available Not Available Not Available citalopram 40 mg tablet TAKE 1 TABLET BY MOUTH ONCE DAILY active Not Available Not Available No t Available azithromyci n 250 mg tablet 11/13 completed Not Available Not Available Not Available ibuprofen 800 mg tablet 11/13 completed Not Available Not Available Not Available fluconazole 150 mg tablet TAKE 1 TABLET BY MOUTH NOW AND REPEAT ON DAY 3 AND DAY 5. 03/19 completed Not Available Not Available Not Available levetiracet am 500 mg tablet TAKE 1 TABLET BY MOUTH EVERY 12 HOURS active Not Available Not Available No t Available hydrocodone 5 mg-acetamin ophen 325 mg tablet 11/13 completed Not Available Not Available Not Available meloxicam 15 mg tablet TAKE 1 TABLET BY MOUTH ONCE DAILY NEEDED 03/03 completed Not Available Not Available Not Available Medrol (Joseph) 4 mg tablets in a dose pack TAKE THE MEDROL DOSE PACK PO DIRECTED 02/09 completed Not Available Not Available Not Available prednisone 20 mg tablet TAKE 3 TABLETS BY MOUTH ONCE DAILY FOR 2 DAYS, THEN 2 TABS DAILY FOR 2 DAYS, THEN 1 TAB DAILY FOR 2 DAYS, THEN 1/2 TAB DAILY FOR 2 DAYS 08/27 completed Not Available Not Available Not Available alendronate 70 mg tablet 11/13 completed Not Available Not Available Not Available clonazepam 0.5 mg tablet 11/13 completed Not Available Not Available Not Available potassium chloride ER 10 mEq tablet,exte nded release Take 1 tablet every day by oral route for 5 days. active Not Available Not Available No t Available acetaminoph en 300 mg-codeine 30 mg tablet TAKE 1 TO 2 TABLETS BY MOUTH EVERY 4 HOURS NEEDED FOR PAIN 06/15 completed Not Available Not Available Not Available sulfamethox azole 800 mg-trimetho prim 160 mg tablet active Not Available Not Available Not Available peg-electro lyte solution 420 gram oral solution 02/20 completed Not Available Not Available Not Available omeprazole 40 mg capsule,del ayed release TAKE 1 CAPSULE BY MOUTH ONCE DAILY active Not Available Not Available No t Available aspirin 81 mg tablet,usman yed release TAKE 1 TABLET BY MOUTH TWICE DAILY 06/15 completed Not Available Not Available Not Available tramadol 50 mg tablet TAKE 1 TABLET BY MOUTH EVERY 6 HOURS NEEDED 03/19 completed Not Available Not Available Not Available triamcinolo ne acetonide 0.1 % topical cream APPLY A THIN LAYER OF CREAM EXTERNALL Y TO THE GROIN/BUT TOCKS/LEG S TWICE DAILY active Not Available Not Available No t Available Macrobid 100 mg capsule Take 1 capsule every 12 hours by oral route for 10 days. active Not Available Not Available No t Available oxycodone-a cetaminophe n 5 mg-325 mg tablet active Not Available Not Available No t Available citalopram 20 mg tablet TAKE 1 TABLET BY MOUTH ONCE DAILY 06/05 completed Not Available Not Available Not Available magnesium oxide 400 mg (241.3 mg magnesium) tablet TAKE 1 TABLET BY MOUTH ONCE DAILY active Not Available Not Available No t Available Kenalog 10 mg/mL suspension for injection in office 07/16 completed [facility]: 0003- [id number]- 20 Not Available Not Available Not Available Cartia XT 120 mg capsule,ext ended release 11/13 completed Not Available Not Available Not Available hydrocodone 7.5 mg-acetamin ophen 325 mg tablet take 1 tablet PO q 4hr PRN 04/02 completed Not Available Not Available Not Available cephalexin 500 mg capsule TAKE 1 CAPSULE BY MOUTH EVERY 6 HOURS 05/18 completed Not Available Not Available Not Available nystatin 100,000 unit/gram topical cream APPLY CREAM TOPICALLY TO AFFECTED AREA(S) OF BUTTOCK AND BREAST TWICE DAILY active Not Available Not Available No t Available nitroglycer in 0.4 mg sublingual tablet DISSOLVE ONE TABLET UNDER THE TONGUE EVERY 5 MINUTES NEEDED FOR CHEST PAIN. DO NOT EXCEED A TOTAL OF 3 DOSES IN 15 MINUTES. IF NOT RELIEP AFTER 3RD DOSE, GO TO ER. active Not Available Not Available No t Available diclofenac sodium 75 mg tablet,usman yed release 11/13 completed Not Available Not Available Not Available Cartia XT 240 mg capsule,ext ended release 11/13 completed Not Available Not Available Not Available ergocalcife rol (vitamin D2) 1,250 mcg (50,000 unit) capsule TAKE 1 CAPSULE BY MOUTH ONCE A WEEK active Not Available Not Available No t Available ibuprofen 600 mg tablet active Not Available Not Available Not Available lovastatin 20 mg tablet TAKE 1 TABLET BY MOUTH ONCE DAILY active Not Available Not Available No t Available albuterol sulfate HFA 90 mcg/actuati on aerosol inhaler INHALE 2 PUFFS BY MOUTH EVERY 4 TO 6 HOURS NEEDED active Not Available Not Available No t Available losartan 50 mg-hydrochl orothiazide 12.5 mg tablet 11/13 completed Not Available Not Available Not Available diltiazem 60 mg tablet 11/13 completed Not Available Not Available Not Available fluticasone propionate 50 mcg/actuati on nasal spray,suspe nsion 11/13 completed Not Available Not Available Not Available doxycycline hyclate 100 mg tablet TAKE 1 TABLET BY MOUTH TWICE DAILY WITH MEALS 08/27 completed Not Available Not Available Not Available amoxicillin 875 mg-potassiu m clavulanate 125 mg tablet TAKE 1 TABLET BY MOUTH EVERY 12 HOURS active Not Available Not Available No t Available oxycodone 5 mg tablet TAKE 1 TABLET BY MOUTH EVERY 4 HOURS NEEDED FOR PAIN 03/13 completed Not Available Not Available Not Available valsartan 40 mg tablet TAKE 1 TABLET BY MOUTH ONCE DAILY active Not Available Not Available No t Available ezetimibe 10 mg tablet active Not Available Not Available Not Available bupropion HCl XL 150 mg 24 hr tablet, extended release 11/13 completed Not Available Not Available Not Available lidocaine (PF) 10 mg/mL (1 %) injection solution In office injection administe red by the provider 02/26 completed [facility]: [phone] Not Available Not Available Not Available lidocaine (PF) 5 mg/mL (0.5 %) injection solution In office injection administe red by the provider 05/18 completed Not Available Not Available Not Available Zostavax (PF) 19,400 unit/0.65 mL subcutaneou s suspension 11/13 completed Not Available Not Available Not Available hydrochloro thiazide 12.5 mg tablet TAKE 1 TABLET BY MOUTH ONCE DAILY active Not Available Not Available No t Available Symbicort 160 mcg-4.5 mcg/actuati on HFA aerosol inhaler Inhale 2 puffs by mouth twice daily 2022 active Not Available Not Available Not Avai lable cholecalcif feng (vitamin D3) 1,250 mcg (50,000 unit) capsule TAKE 1 CAPSULE BY MOUTH ONCE A WEEK active Not Available Not Available No t Available ropivacaine (PF) 5 mg/mL (0.5 %) injection solution in office 09/01 completed [facility] [phone] -[phone] Not Available Not Available Not Available Xarelto 20 mg tablet TAKE 1 TABLET BY MOUTH ONCE DAILY WITH EVENING MEAL 02/05 completed Not Available Not Available Not Available Qsymia 3.75 mg-23 mg capsule, extended release TK ONE C PO D 11/13 completed Not Available Not Available Not Available Qsymia 7.5 mg-46 mg capsule, extended release TK ONE C PO QD 11/13 completed Not Available Not Available Not Available Afluria (PF) 45 mcg (15 mcg x 3)/0.5 mL IM syringe 11/13 completed Not Available Not Available Not Available Vitals Date Recorded Body height Body mass index (BMI) Body weight Body temperature Heart rate Oxygen saturation Oxygen saturation in Arterial blood by Pulse oximetry Systolic blood pressure Diastolic blood pressure Provider Name and Address Organization Details Last Updated DateTime 3 160.02 cm 31.9 kg/m2 58578.6 3 g 98.1 [degF] 83 /min 97 % 97 % 132 mm[Hg] 80 mm[Hg] April Kaplan RN [facility] [employer] [facility] 3 10:33:49 Date Recorded Body height Provider Name an d Address Organization Details Last Updated DateTime 07/30/2023 160.02 cm ZEINAB Garcia [facility] 07/30/2023 08:51:36 Date Recorded Body height Provider Name an d Address Organization Details Last Updated DateTime 08/27/2023 160.02 cm Gayla Leal [facility] 08/27/2023 08:55:04 Date Recorded Body height Body temperature Body mass index (BMI) Body weight Heart rate Respiratory rate Oxygen saturation Oxygen saturation in Arterial blood by Pulse oximetry Systolic blood pressure Diastolic blood pressure Provider Name and Address Organization Details Last Updated DateTime 3 160.02 cm 97.2 [degF] 33 kg/m2 27312.9 8 g 64 /min 16 /min 93 % 93 % 130 mm[Hg] 80 mm[Hg] Lenore Santo [facility] 3 11:28:59 Date Recorded Body height Provider Name an d Address Organization Details Last Updated DateTime 01/03/2024 160.02 cm Gayla Leal [facility] 01/03/2024 14:20:57 Social History Question Answer Notes LastModified by Organizat ion Details LastModified Time Tobacco Smoking Status Current Every Day Smoker Not Available [facility] 12/23/[facility]22 04:06:30 Do You Have An Advance Directive? Yes MIGRATION.30500 [id number] Information not available 12/23/2022 What Is Your Level Of Alcohol Consumption? None MIGRATION.71682 93302 Information not available 12/23/2022 Are You Blind Or Do You Have Difficulty Seeing? Yes MIGRATION.46103 68702 Information not available 12/23/2022 What Is Your Level Of Caffeine Consumption? Occasional MIGRATION.73049 13253 Information not available 12/23/2022 How Much Tobacco Do You Chew? None MIGRATION.62668 42784 Information not available 12/23/2022 In The 14 Days Before Symptom Onset, Have You Had Close Contact With A Laboratory-confir med COVID-19 While That Case Was Ill? No MIGRATION.55312 38661 Information not available 12/23/2022 In The 14 Days Before Symptom Onset, Have You Had Close Contact With A Person Who Is Under Investigation For COVID-19 While That Person Was Ill? No MIGRATION.57344 19368 Information not available 12/23/2022 Are You Deaf Or Do You Have Serious Difficulty Hearing? Yes MIGRATION.56420 71317 Information not available 12/23/2022 What Type Of Diet Are You Following? REGULAR MIGRATION.02833 06949 Information not available 12/23/2022 Which Illicit Or Recreational Drugs Have You Used? None MIGRATION.05893 08795 Information not available 12/23/2022 Do You Or Have You Ever Used E-cigarettes Or Vape? Never Used Electronic Cigarettes MIGRATION.16665 21561 Information not available 12/23/2022 Have There Been Any Changes To Your Family Or Social Situation? No MIGRATION.80520 09198 Information not available 12/23/2022 Are There Any Guns Present In Your Home? No MIGRATION.03258 63309 Information not available 12/23/2022 Do You Use Insect Repellent Routinely? No MIGRATION.89345 65710 Information not available 12/23/2022 Presence Of Domestic Violence No [email or web address] Information no t available 07/19/2023 Are You Able To Care For Yourself? Yes [email or web address] Information not available 07/19/2023 Are You Blind Or Do Yo Have Difficulty Seeing? Yes Reading Glasses [email or web address] Information not available 07/19/2023 Are You Deaf Or Do You Have Serious Difficulty Hearing? No [email or web address] Information not available 07/19/2023 General Stress Level? Moderate [id number] Information not available 07/19/2023 Live Alone Of With Others? Alone [email or web address] Information not available 07/19/2023 Do You Have A Medical Power Of Gis Specialist? Yes Good Friend, Gayla Ruiz MIGRATION.75414 72259 Information not available 12/23/2022 What Was The Date Of Your Most Recent Tobacco Screening? 03/05/2021 MIGRATION.72949 47069 Information not available 12/23/2022 Do You Have Any Pets? Yes MIGRATION.43635 00125 Information not available 12/23/2022 What Is Your Relationship Status? Single MIGRATION.45366 13675 Information not available 12/23/2022 Do You Use Your Seat Belt Or Car Seat Routinely? Yes MIGRATION.84704 50614 Information not available 12/23/2022 Do You Have Smoke And Carbon Monoxide Detectors In Your Home? Yes MIGRATION.72301 88143 Information not available 12/23/2022 At What Age Did You Start Smoking Tobacco? 24 MIGRATION.06467 61439 Information not available 12/23/2022 Are You Passively Exposed To Smoke? Yes MIGRATION.24446 06056 Information not available 12/23/2022 Do You Or Have You Ever Used Smokeless Tobacco? Never Used Smokeless Tobacco MIGRATION.24962 86141 Information not available 12/23/2022 Are There Any Smokers In Your House? Yes MIGRATION.40320 70620 Information not available 12/23/2022 How Much Tobacco Do You Smoke? 1 PPW MIGRATION.91566 35324 Information not available 12/23/2022 Do You Use Any Illicit Or Recreational Drugs? No MIGRATION.85819 49509 Information not available 12/23/2022 Do You Use Sunscreen Routinely? Yes MIGRATION.78647 48938 Information not available 12/23/2022 How Many Years Have You Smoked Tobacco? 25 MIGRATION.87486 07208 Information not available 12/23/2022 Have You Recently Traveled Abroad? No MIGRATION.18206 44929 Information not available 12/23/2022 Do You Have Any Dietary Restrictions? No MIGRATION.63087 32007 Information not available 12/23/2022 Do You Or Have You Ever Used Any Other Forms Of Tobacco Or Nicotine? No MIGRATION.68919 13720 Information not available 12/23/2022 Sex: Female Functional Status Question Answer Note LastModified by Organizat ion Details LastModified Time Do you have difficulty walking or climbing stairs? Yes MIGRATION.4203240 026 Information not available 12/23/2022 Do you have transportation difficulties? Yes MIGRATION.0827791 026 Information not available 12/23/2022 Are you able to walk? YESASSIST [email or web address] Information not available 07/19/2023 Do you have difficulty doing errands alone? No MIGRATION.9401476 026 Information not available 12/23/2022 Are you able to care for yourself? Yes MIGRATION.3536645 026 Information not available 12/23/2022 Do you have difficulty dressing or bathing? No MIGRATION.0715585 026 Information not available 12/23/2022 What is your exercise level? None MIGRATION.4545181 026 Information not available 12/23/2022 Mental Status Question Answer Note LastModified by Organizat ion Details LastModified Time Do you have difficulty concentrating, remembering or making decisions? No MIGRATION.[id number] 6 Information not available 12/23/2022 Family History Relationship Description Onset Age of this Age Resolved Age Notes LastModified by Organization Details LastModified Time Father Heart disease MIGRATION.[id number] Not available 12/23/2022 04:42:14 Father Hypertensive disorder MIGRATION.305 [id number] Not available 12/23/2022 04:42:14 Father Diabetes mellitus MIGRATION.517 [id number] Not available 12/23/2022 04:42:14 Mother Heart disease MIGRATION.866 [id number] Not available 12/23/2022 04:42:14 Mother Family history of malignant neoplasm MIGRATION.222 [id number] Not available 12/23/2022 04:42:14 Mother Diabetes mellitus MIGRATION.688 [id number] Not available 12/23/2022 04:42:14 Medical History Condition Response CANCER: SPECIFY Y ARTHRITIS Y URINARY/BLADDER/KIDNEY PROBLEMS Y HEARTBURN / REFLUX Y COPD Y HYPERTENSION Y Gynecological History Statement/Question Response Date of Last Pap Date of Last Mammogram 08/14/2022 Date of Last Colonoscopy 02/06/2022 Date of Last Mammogram 08/14/2022 Most Recent Bone Density 04/09/2023 Obstetrics History GPAL:G 0 P 0 0 0 0 Immunizations Vaccine Type Date Status Note Provider Nam e and Address Organization Details Recorded Time Influenza, high-dose, quadrivalent, PF 0 completed Not Available [facility] 05/03/2023 16:25:58 Pneumococcal conjugate PCV 13 0 completed Not Available [facility] 05/03/2023 16:25:58 Past Encounters Encounter ID Performer Location Encounter Start Date Encounter Closed Date Diagnosis/Indication Diagnosis SNOMED-CT Code Diagnosis ICD10 Code Diagnosis Note [id number] [facility] [address] [place] [address] 02/05/2021 00:00:00 02/10/2021 12:15:[id number] [facility] [address] [place] [address] 02/27/2021 00:00:00 03/02/2021 16:07:23 [id number] [facility] [address] [place] [address] 03/05/2021 00:00:00 03/15/2021 22:29:08 [id number] [facility] [address] [place] [address] 03/17/2021 00:00:00 03/21/2021 18:02:04 [id number] [facility] [address] [place] [address] 04/16/2021 00:00:00 04/16/2021 10:28:54 [id number] [facility] [address] [place] [address] 06/23/2021 00:00:00 06/23/2021 22:41:56 [id number] [facility] [address] [place] [address] 09/08/2021 00:00:00 09/23/2021 18:26:16 [id number] [facility] [address] [place] [address] 01/14/2022 00:00:00 02/01/2022 17:50:53 [id number] [facility] [address] [place] [address] 02/04/2022 00:00:00 02/04/2022 09:06:32 [id number] [facility] [address] [place] [address] 02/20/2022 00:00:00 02/20/2022 09:19:09 [id number] [facility] [address] [place] [address] 03/13/2022 00:00:00 03/13/2022 09:18:53 [id number] [facility] [address] [place] [address] 06/15/2022 00:00:00 06/21/2022 10:43:56 [id number] [facility] [address] [place] [address] 09/25/2022 00:00:00 09/25/2022 10:14:07 [id number] [facility] [address] [place] [address] 11/13/2022 00:00:00 11/22/2022 13:34:26 [id number] [facility] [address] [place] [address] 12/11/2022 00:00:00 12/11/2022 09:22:01 [id number] Ran Carney MD [facility] 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 groin with jud that needs antifungal tx. steroid cream for buttock region. Hypothyroidism 54696714 E03.9 due for TFTs. not on supplement therapy. Hyperlipidemia 93996746 E78.5 on statin therapy, due for fasting lipids Impaired g lucose tolerance 7237550 R73.03 a1c due w/IGT hx Long-term drug therapy 041980503 Z79.899 all routine bmp, lft and CBC labs due History of polyp of colon 252147698 Z86.010 due for colonoscop y f/u screening [id number] ANA Lua [facility] [address] [place] [address] 02/24/2023 08:28:05 02/24/2023 10:01:39 Pain in left foot 6152329046 98093 M79.672 [id number] Ran Carney MD [facility] [address] [place] [address] 03/03/2023 08:28:43 03/03/2023 09:08:55 Pain in left foot 9784504902 37265 M79.672 [id number] ANA Lua [facility] [address] [place] [address] 2023 08:45:18 2023 09:31:50 Pain in left foot 6299559657 94063 M79.672 [id number] ANA Lua [facility] [address] [place] [address] 04/02/2023 08:46:25 04/02/2023 09:14:02 Pain in left foot 5768849592 57221 M79.672 [id number] Ran Carney MD [facility] [address] [place] [address] 04/21/2023 08:32:44 04/23/2023 14:32:27 Closed fracture of metatarsal bone 45119541 S92.315D [id number] ANA Lua [facility] [address] [place] [address] 05/14/2023 08:47:32 05/14/2023 10:06:58 Closed fracture of metatarsal bone 63454603 S92.315D [id number] Ran Carney MD [facility] [address] [place] [address] 06/04/2023 08:42:16 06/04/2023 12:28:24 Closed fracture of metatarsal bone 38294608 S92.315D [id number] ANA Lua [facility] [address] [place] [address] 06/23/2023 08:24:05 06/23/2023 09:07:56 Osteoarthritis of right knee joint 2561544503 09799 M17.11 [id number] Ran Car[address] [facility] [address] [place] [address] 07/02/2023 08:48:50 07/05/2023 15:12:23 Closed fracture of metatarsal bone 26462038 S92.315D [id number] ANA Wilson [facility] [address] [place] [address] 07/19/2023 10:26:00 07/19/2023 11:22:00 Adult health examination 526608900 Z00.00 mawe completed /routine f/u completed Screening for disorder 689835025 Z13.9 Hypothyroidism 14626875 E03.9 due for TFTs. not on supplement therapy. Hyperlipidemia 43422064 E78.5 on statin therapy, due for fasting lipids Impaired g lucose tolerance 6917034 R73.03 a1c due w/IGT hx Long-term drug therapy 674621531 Z79.899 all routine bmp, lft and CBC labs due History of polyp of colon 536359618 Z86.010 Still due for 1 year f/u colonoscop y screening that is past due. ordered again Screening mammography 24 613191 Z12.31 mammogram due in jul. Smoker 19614056 F17.200 LDCT scan ordered Osteoporosis 37618476 M8 1.0 UTD on dexa 2022 Vitamin D deficiency 347 35305 E55.9 refill vitamin D that was very low on ortho screening. Postmenopa usal bleeding 93197858 N95.0 refer to gyne promptly as she had occult PMB. Acute dermatitis 8715248 6 L30.9 Rx for steroid cream, prednisone taper, antifungal cream and doxy 100mg bid course to treat different derm rashes and lesions present on exam today. [id number] Ran Carney MD [facility] [address] [place] [address] 07/30/2023 08:47:25 07/30/2023 09:53:07 Closed fracture of metatarsal bone 06932262 S92.315D [id number] Ran Carney MD [facility] [address] [place] [address] 08/27/2023 08:52:42 09/06/2023 16:04:53 Closed fracture of metatarsal bone 56969406 S92.315D [id number] ANA Wilson [facility] [address] [place] [address] 09/02/2023 11:22:54 09/02/2023 12:02:11 Ground glass opacity 0302530541 R91.8 refer to Pulmonary for f/u on ground glass opacity on LDCT Steatosis of liver 48483 1007 K76.0 f/u LFT panel ordered to evaluate for any improvemen t in LFT with dietary changes. AST was 60 on jul labs. [id number] Ran Carney MD [facility] [address] [place] [address] 01/03/2024 14:15:36 01/03/2024 17:01:29 Closed fracture of metatarsal bone 33903697 S92.315D Health Concerns Section Related Observation LastModified by Organization Detai ls LastModified Time None Recorded Concern Status LastModified by Organization Details LastModified Time None Recorded Advance Directives Directive Y: Payers Encounter Date Sequence Insurance Name Policy Number Policy Thomas Covered Member ID Thomas Member ID Guarantor Name 07/19/2023 1 [facility] (MEDICARE REPLACEMENT/ ADVANTAGE - HMO) [id number] Yajaira Salguerorendt [id number] Yajaira Marnie Solo 07/30/2023 [employer] Yajaira Cabanchapincito Salguerorenfrancesca 08/27/2023 [employer] Yajaira Cabanchapincito Salguerorendt 09/02/2023 1 [facility] (MEDICARE REPLACEMENT/ ADVANTAGE - HMO) [id number] Yajaira Coppola Behrendt [id number] Yajaira Minafrancesca 01/03/2024 [employer] [facility] Yajaira Solo Notes Date Note Type Note Provider Name and Address Organization Details Recorded Time 07/19/20 text/htm l Anxiety/DepressionReported bypatient.Severity:denies suicidal ideations; able to maintain relationships; does not interfere with activities of daily living Context:no major life stressors Associated Symptoms:denies homicidal ideations; no significant weight gain; no significant weight loss; no visual/auditory hallucinations; no delusions; no shortness of breathHypertensionReported bypatient.Onset/Timing:better Associated Symptoms:no shortness of breath; no fatigue; no palpitations; no decline in exercise capacity; no snoringReflux/GERDReported bypatient.Severity:improving Context:non-smoker; no drug/alcohol abuse; no drug alcohol withdrawal; not related to food/drink Associated Symptoms:no frequent coughing; no feeling of fullness/mass in throat; no hoarseness; no food getting stuck; no belching/burping; no vomiting; not vomiting blood; no regurgitation; no shortness of breath; no chest pain; no heartburn; no difficulty swallowing; no pain when swallowing; no bad taste; no decreased appetite; no weight loss; no black/tarry stools; no fatigue; no throat pain She has multiple CCM from 04/23/23,05/27/23, 05/28/23,06/07/23 & 07/12/23. Also has a med recall notification in your bucket for review. ANA Wilson [address] [place] [address], [place], [address], [facility] [employer] 07/20/2023 14:20:32 08/27/20 text/htm l patient returns. She is here for a 1 month follow-up. Her left foot work related injury was on February 17. She is therefore little over 6 months out. A tall heavy metal product standing on and fell over and landed on her left foot resulting fractures of the 1st and 2nd metatarsal shafts and contusion to the deep branch of peroneal nerve on the top of the foot. She still has soreness the top of her foot and sensitivity there. She still feels some tingling in the dorsum the 1st webspace. She notes a fullness on the top of her midfoot for the fractures were. She is certain that she is not lacing up her shoes too tight which can aggravate the situation. Ran Carney MD [address], [place] [address], [place], [address], [employer] 09/06/2023 15:42:37 09/02/20 23 text/htm l Generic HPI TemplateReported bypatient.Notes:Pt is here to discuss her lab results regarding her liver enzymes. Also, while she is here she does need a pulm referral for her lungs. LDCT scan chest show some coronary calcifications ; Her right lung does have some ground glass opacities present that could be inflammation and follow up is recommended on that. ANA Wilson [address] [facility], [place] [address], [place], [address], [employer] 09/22/2023 23:02:08 01/03/20 24 text/htm l patient returns now a little less than 1 year after her left foot injury at work on February 17. while at work a heavy metal frame it was vertically propped up fell landing onto the dorsum of her left forefoot causing fractures of the left 1st and 2nd metatarsal shafts and crush injury to the deep branch of the peroneal nerve. She reports that she has swelling over the dorsum of the forefoot at the end of the day and aching in the forefoot at the end the day if she has been doing a lot of walking. She wears the shoes that she purchased after the injury that had stiffer soles and this helps. She continues to complain of a numbness feeling in the 2nd toe and over the dorsum of the forefoot. She denies any pain or problems in the ankle or hindfoot. X-rays left foot today show that the 2nd and 1st metatarsal shaft fractures are completely healed and have remodeled and no residual lucency remains. The fractures healed in near anatomic alignment. Ran Carney MD [address], [place] [address], [place], [address], [employer] 01/03/2024 16:56:42 OBGyn Episode No [id number]
--- OUTSIDE RECORDS SUMMARY | 2025-02-13 07:43 | XMS_ITS | Data Portability ---
Author Organization [facility] Address [address] [place] [address] Care Team Providers Care Panelbeater Name Role Phone ROSSI NAHED Primary Care Provider LAXMI Deleon Chucking Machine Operator DIEGO HALL Pastry Supervisor Assessment Encounter Date Assessment Date Assessment LastModified by Organization Details LastModified Time 08/22/2024 08/22/2024 mammogram. Labs are due Colonoscopy due Not available 08/22/2024 10:28:47 09/25/2024 09/25/2024 mammogram. Labs are due Colonoscopy due Not available 09/25/2024 14:11:17 Plan of Treatment Reminders Order Date Submit Date Provider Last Modified By Organization Details Last Modified Time Details Appointments ANY 15 2024 01:30P M ANA Wilson Not available Not available Not available Lab HbA1c (hemo globi n A1c), blood 2023 025 [email or web address] [facility], [address], [address], [place], [address], 09/25/2024 14:28:18 CBC w/ auto diff 2023 025 [email or web address] [facility], [address], [address], [place], [address], 09/25/2024 14:28:18 hepat ic funct ion panel , serum 2023 025 [email or web address] [facility], [address], [address], [place], [address], 09/25/2024 14:28:18 BMP, serum or plasm a 2023 025 [email or web address], [address], [address], [place], [address], 09/25/2024 14:28:18 TSH + free T4, serum 2023 025 [email or web address], [address], [address], [place], [address], 09/25/2024 14:28:18 lipid panel , serum 2023 025 [email or web address], [address], [address], [place], [address], 09/25/2024 14:28:18 HbA1c (hemo globi n A1c), blood 2023 024 DUC [facility], [address], [address], [place], [address], 09/19/2024 10:35:40 insul in, serum 2023 024 DUC [facility], [address], [address], [place], [address], 09/20/2024 15:25:07 CBC w/ auto diff 2023 024 [email or web address] [facility], [address], [address], [place], [address], 09/20/2024 15:07:48 hepat ic funct ion panel , serum 2023 024 [email or web address] [facility], [address], [address], [place], [address], 09/20/2024 15:07:31 BMP, serum or plasm a 2023 024 [facility], [address], [address], [place], [address], 09/20/2024 15:06:51 TSH + free T4, serum 2023 [facility], [address], [address], [place], [address], 09/20/2024 15:07:18 lipid panel , serum 2023 024 [facility], [address], [address], [place], [address], 09/20/2024 15:08:16 Referral derma tolog ist refer ral 2023 DUC Marrero MD (Dermatology), [address] [facility] [address], [address], [place], [address], 12/19/2024 12:43:33 pain manag ement refer ral - Pleas e call pt to [facility], Thank you 2018 019 [email or web address] [facility], [address] [facility], [place], [address], 03/22/2019 11:14:25 Procedures colon oscop y proce dure (PROC ) 2023 024 [email or web address] [facility], [address] [place] [address] , [address], [place], [address], 12/18/2024 16:41:18 colon oscop y proce dure (PROC ) 2023 024 [facility] Mark Irizarry MD, [address], [address], [place], [address], 11/21/2024 16:04:57 Surgeries None recor ded. Imaging MAMMO , scree regan, digit al, bilat eral 2023 024 [email or web address]), 1 [facility] [place], [address], 12/18/2024 16:41:00 MRI, brain , w/wo contr ast [address] (Imaging), [address], [place], [address], 01/03/2025 15:12:58 XR, lumba r spine 2018 019 [facility] (Radiology), [address] [place], [address], 01/12/2019 11:22:18 XR, sacru m + coccy x 2018 019 [facility] (Radiology), [address] [place], [address], 03/28/2019 12:34:03 Medication Orders omepr azole 40 mg capsu le,de layed relea se 2023 [facility] [address], [address] [place], [address], 08/22/2024 09:52:16 nysta tin 100,0 00 unit/ gram topic al powde r 2023 024 [facility] [address], [address] [place], [address], 08/22/2024 09:52:13 nysta tin 100,0 00 unit/ gram topic al cream 2023 024 [facility] [address], [address] [place], [address], 08/22/2024 09:52:19 fluco nazol e 100 mg table t 2023 [email or web address] [facility] [address], [address] [employer] [place], [address], 09/25/2024 14:06:15 metfo rmin 500 mg table t 2023 [facility] [address], [address] [facility], [place], [address], 08/22/2024 09:52:15 lovas tatin 20 mg table t 2023 [facility] [address], [address] [facility], [place], [address], 08/22/2024 09:52:14 cital opram 40 mg table t 2023 [facility] [address], [address] [employer] [facility], [place], [address], 08/22/2024 09:52:14 valsa rtan 80 mg table t 2023 [facility] [address], [address] [employer] [facility], [place], [address], 08/22/2024 09:52:16 hydro chlor othia zide 12.5 mg table t 2023 [facility] [address], [address] [employer] [facility], [place], [address], 08/22/2024 09:52:19 magne sium 400 mg (as magne sium oxide ) capsu le 2018 [email or web address] [facility] [address], [address] [employer] [facility], [place], [address], 08/22/2024 09:17:06 Symbi lisseth 160 mcg-4 .5 mcg/a ctuat ion HFA aeros ol inhal er 2018 019 INTERFACE [facility] [address], [address] [email or web address], [place], [address], 02/06/2019 11:51:06 ProAi r HFA 90 mcg/a ctuat ion aeros ol inhal er 2018 019 [email or web address] [facility] [address], [address] [facility], [place], [address], 02/07/2019 09:41:06 Vitam in D2 1,250 mcg (50,0 00 unit) capsu le 2018 019 [facility] [address], [address] [facility], [place], [address], 08/22/2024 09:17:43 dilti azem 60 mg table t 2018 019 [facility] [address], [address] [facility], [place], [address], 08/22/2024 09:18:17 magne sium 400 mg (as magne sium oxide ) capsu le 2018 019 [facility] [address], [address] [facility], [place], [address], 08/22/2024 09:17:06 Patient TargetsNo targets recorded. Patient Instructions Encounter Date Encounter Id Patient Instructions Last Modified By Organization Details Last Modified Time 02/06/2019 [id number] I have reviewed the provider's note and I agree with the documented assessment and plan. [email or web address] Not available 02/15/2019 01:12:04 Reason for Referral Pain Management Referral for Spinal stenosis of lumbar region Please call pt to schedule appointment, Thank you Referring Physician: Nahed Ceballos, Internal Medicine, Encounter Date: 02/06/2019 Enterprise Cloud Architect Referral for C andidiasis of skin Referring Physician: Brenda Bowie, Internal Medicine, Encounter Date: 08/22/2024 Credit Card Analyst Referral for Pain in left foot Referring Physician: Brenda Bowie, Internal Medicine, Encounter Date: 01/25/2025 Results Created Date Observation Date Name Description Value Unit Range Abnormal Flag Note LastModifiedBy Organization Detail LastModifiedTime 01/12/20 19 01/11/2019 MRI, lumba r spine , w/o contr ast No observ ation [facility] [address] [place], [address], 01/12/2019 11:22:18 03/24/20 19 03/24/2019 sacro iliac joint injec tion (PROC ) No observ ation record ed. [facility] [address] [place], [address], 03/28/2019 12:34:03 06/24/20 20 06/24/2020 imagi ng/di agnos tic resul t No observ ation record ed. [email or web address] [facility] [address], [place], [address], 06/25/2020 11:41:50 06/24/20 20 06/24/2020 imagi ng/di agnos tic resul t No observ ation record ed. [email or web address] [facility] [address], [place], [address], 06/25/2020 11:41:34 07/05/20 20 07/05/2020 elect rocar diogr am No observ ation record ed. [email or web address] [facility] [address], [place], [address], 07/10/2020 10:27:04 07/08/20 20 07/08/2020 elect rocar diogr am No observ ation record ed. [email or web address] [facility] [address], [place], [address], 07/10/2020 10:26:53 08/28/20 20 06/08/2020 imagi ng/di agnos tic resul t No observ ation record ed. [email or web address] Not Available 2019 09:13:19 11/14/19 21 11/14/2020 exerc ise stres s test No observ ation record ed. [email or web address] [facility] [address], [place], [address], 11/18/2020 15:27:08 11/15/19 21 11/15/2020 US, carot id arter y No observ ation record ed. [email or web address] [facility] [address], [place], [address], 11/18/2020 15:28:06 11/26/19 21 11/25/2020 imagi ng/di agnos tic resul t No observ ation record ed. [email or web address] [address], [place], [address], 11/26/2020 12:25:26 03/14/20 21 02/21/2021 cardi ac telem etry No observ ation record ed. [address] [facility] [address], [place], [address], 03/17/2021 11:35:47 08/11/20 22 08/11/2022 imagi ng/di agnos tic resul t No observ ation record ed. [facility] [address], [place], [address], 10/14/2022 16:10:57 09/23/20 22 09/15/2022 imagi ng/di agnos tic resul t No observ ation record ed. [facility] [address], [place], [address], 10/14/2022 16:11:17 09/28/20 22 09/28/2022 imagi ng/di agnos tic resul t No observ ation record ed. [facility] [address], [place], [address], 10/14/2022 16:11:23 09/28/20 22 09/28/2022 imagi ng/di agnos tic resul t No observ ation record ed. [facility] [address], [place], [address], 10/14/2022 16:11:29 09/28/2009/28/2022 imagi ng/di agnos tic resul t No observ ation record ed. [facility] [address], [place], [address], 10/14/2022 16:11:36 04/06/20 23 04/06/2023 , [facility] ardio gram No observ ation record ed. [facility] [address], [place], [address], 05/20/2023 11:17:42 04/16/20 23 04/15/2023 elect rocar diogr am No observ ation record ed. [facility] [address], [place], [address], 05/20/2023 11:17:53 04/16/20 23 04/16/2023 elect rocar diogr am No observ ation record ed. [facility] [address], [place], [address], 05/20/2023 11:17:58 04/16/20 23 04/16/2023 elect rocar diogr am No observ ation record ed. [facility] [address], [place], [address], 05/20/2023 11:18:06 04/16/20 , [facility] ardio gram No observ ation record ed. [facility] [address] [facility] [address], [place], [address], 05/20/2023 11:16:12 04/16/20 23 04/16/2023 elect rocar diogr am No observ ation record ed. [facility] [address], [place], [address], 05/20/2023 11:19:11 04/26/20 23 04/23/2023 elect live [email or web address] am No observ ation record ed. [email or web address] [address], [place], [address], 05/20/2023 11:21:31 09/11/20 24 09/09/2024 MRI, foot, w/o contr ast No observ ation record ed. [email or web address] [facility] [address], [place], [address], 09/11/2024 09:09:05 Result Notes None recorded. Problems Name Problem SNOMED Code Status Onset Date Resolution Date Notes Provider Name and Address Organization Details Recorded Time Seizure disorder 483634059 Active 2017 per EEG, neuro consult, likely cause of syncope Nahed Ceballos PA-C Attn: Kelvin pratt,[address] [place], [address], [facility] 8 13:18:49 Pulmonar y emphysem a 49775042 Active 2017 Nahed Ceballos PA-C Attn: Kelvin pratt,[address] [place], [address], [facility] 8 15:24:17 Ventricu lar tachycar elgin 05444561 Active 2017 Nahed Ceballos PA-C Attn: Kelvin pratt,[address] [place], [address], [facility] 8 12:51:31 Lumbago with sciatica 204203216 Active 2017 Nahed Ceballos PA-C Attn: Kelvin pratt,[address] [place], [address], [facility] 8 12:51:38 Body mass index measurem ent declined 62947321379 4108 Active 2023 ANA Wilson Attn: Kelvin pratt,[address] [place], [address], [place] [facility] 4 09:26:37 Obesity 845778515 Active 2023 ANA Wilson Attn: Roseykelly pratt,[address] [facility], [place], [address], [place] [facility] 4 09:26:43 Benign essentia l hyperten ranjit 2713634 Active 2023 ANA Wilson Attn: Accountin g,[address] [facility], [place], [address], [place] [facility] 4 09:44:20 Long-ter m drug therapy Active 2023 ANA Wilson Attn: Kelvin g,[address] [facility], [place], [address], [place] [facility] 4 09:44:25 Candidia sis of skin 96414083 Active 2023 ANA Wilson Attn: Accountin g,[address] [place], [address], [place] [facility] 4 09:44:28 Prediabe edinson 088748865 Active 2023 ANA Wilson Attn: Accountin g,[address] [place], [address], [place] [facility] 4 09:44:30 Acid reflux 081943406 Active 2023 ANA Wilson Attn: Roseyin g,[address] [place], [address], [place] [facility] 4 09:45:06 History of polyp of colon 916311957 Active 2023 ANA Wilson Attn: Kelvin g,[address] [facility], [place], [address], [place] [facility] 4 10:27:14 Mixed anxiety and depressi ve disorder 214617876 Active 2023 ANA Wilson Attn: Accountin g,[address] [facility], [place], [address], [place] [facility] 4 10:28:13 Positive screenin g for depressi on on PHQ-9 (Patient Health Question naire 9) 64939334037 9100 Active 2023 ANA Wilson Attn: Accountin g,[address] [facility], [place], [place], [address] [place] [address] 2, [place] [facility] 4 10:29:09 Dizzines s 526327972 Active 2023 ANA Wilson Attn: Accountin g,[address] [facility], [place], [place], [address] [place] [address] 2, [place] [facility] 4 14:44:11 Body mass index 30+ - obesity 760131301 Active 2023 ANA Wilson Attn: Accountin g,[address] [place], [place], [address] [place] [address] 2, [place] [facility] 4 14:45:18 Pain in left foot 71014977960 9107 Active 2024 ANA Wilson Attn: Accountin g,[address] [place], [place], [address] [place] [address] 2, [place] [facility] 5 14:17:25 History of fracture 142537317 Active 2024 ANA Wilson Attn: Accountin g,[address] [place], [address], [place] [facility] 5 14:17:26 Essentia l hyperten ranjit 65069042 Active Dakota Kunche null, [place] [facility] 6 15:32:14 Hyperlip idemia 96666753 Active [place] Kunche [place] [facility] 6 15:32:14 Panic disorder 460499187 Active [place] Kunche [place] [facility] 5 11:55:48 Vitamin D deficien cy 09331769 Active [place] Kunche [place], [place] [facility] 6 15:32:14 Hypergly cemia 80035411 Active 02/2017 A1c 6.1% Nahed Ceballos PA-C Attn: Kelvin pratt,[address] [facility], [place], [address], [place] [facility] 7 15:53:42 Shoulder pain 00706962 Active [place] Leon [place] [facility] 6 15:32:14 Tired 125091071 Active [place] De Leon [place] [facility] 6 15:32:14 Chronic obstruct edu pulmonar y disease 71260440 Active 2015 Nahed Ceballos PA-C Attn: Kelvin pratt,[address] [facility], [place], [address], [place] [facility] 6 09:43:44 Syncope and collapse 880208671 Completed 201504/04/2018 06/27/2014 ECHO - normal Removal Reason: new dx (syncope ) Nahed Ceballos PA-C Attn: Kelvin pratt,[address] [facility], [place], [address], [place] [facility] 8 12:41:52 Iron deficien cy anemia 76221532 Active 2016 Nahed Ceballos PA-C Attn: Kelvin pratt,[address] [place], [address], [place] [facility] 7 09:14:26 Polyp of colon 81955048 Active 2013 prox ascendin g colon; rectum. few divertic anthony in distal descendi ng colon & distal sigmoid Nahed Ceballos PA-C Attn: Kelvin pratt,[address] [facility], [place], [address], [place] [facility] 7 14:51:01 Divertic ular disease 833514898 Active 2016 noted on colonosc opy at distal descendi ng & sigmoid colon Nahed Ceballos PA-C Attn: Kelvin pratt,[address] [facility], [place], [address], [facility] 7 14:51:28 Gastroes ophageal reflux disease without esophagi tis 081201935 Active 2016 Nahed Ceballos PA-C Attn: Kelvin pratt,[address] [place], [address], [facility] 7 14:51:59 Osteonec rosis of hip 039261973 Active 2016 Nahed Ceballos PA-C Attn: Kelvin pratt,[address] [facility], [place], [address], [facility] 7 14:52:18 Malignan t tumor of breast 040339912 Completed 201611/23/2016 Nahed Ceballos PA-C Attn: Kelvin pratt,[address] [place], [address], [facility] 7 14:52:35 Obstruct edu sleep apnea syndrome 82496939 Active 2016 mild, rec CPAP 8cm H2O Nahed Ceballos PA-C Attn: Kelvin pratt,[address] [place], [address], [facility] 7 14:53:41 Osteopor osis 23041998 Active 2016 Nahed Ceballos PA-C Attn: Kelvin pratt,[address] [place], [address], [facility] 7 11:22:30 Problem Notes None recorded. Procedures Surgical History Date Name Laterality Status Provider Name and Address Organization Details Recorded Time 10/06/20 18 percutaneous radiofrequency ablation of epicardium completed Nahed Ceballos PA-C Attn: Accounting,[address] [place], [address], [facility] 10/19/2018 10:24:13 05/17/20 18 Nebulizer tx completed Nahed Ceballos PA-C Attn: Accounting,[address] [place], [address], [place] [facility] 05/18/2018 13:21:28 05/24/20 17 Most Recent Mammogram completed Ilene Mario [place]to [place] - [facility] 06/10/2017 11:41:47 05/10/20 17 Nebulizer tx completed Nahed Ceballos PA-C Attn: Accounting,[address] [facility], [place], [address], [facility] 05/10/2017 15:52:58 11/24/19 17 Nebulizer tx completed Nahed Ceballos PA-C Attn: Accounting,[address] [facility], [place], [address], [facility] 11/24/2016 13:43:49 11/17/19 17 Nebulizer tx completed Nahed Ceballos PA-C Attn: Accounting,[address] [facility], [place], [address], [facility] 11/17/2016 09:14:16 09/07/20 16 Nebulizer tx completed Nahed Ceballos PA-C Attn: Accounting,[address] [facility], [place], [address], [facility] 09/07/2016 09:57:51 07/05/20 16 Wrist Surgery completed Nahed Ceballos PA-C Attn: Accounting,[address] [facility], [place], [address], [facility] 10/19/2018 10:22:28 07/12/20 14 Colonoscopy completed Nahed Ceballos PA-C Attn: Accounting,[address] [facility], [place], [address], [facility] 11/23/2016 14:49:32 Joint Replacement completed Nahed garcia PA-C Attn: Accounting,[address] [facility], [place], [address], [facility] 11/23/2016 14:55:02 Breast Surgery completed Dakota De Leon [place] - [place] 09/04/2015 11:27:43 Mastectomy completed Joan Jose MA [place] - [facility] 09/04/2015 11:03:09 Appendectomy completed Dakota De Leon [place] - [facility] 09/04/2015 11:28:41 Imaging Results Imaging Date Name Status LastModified by Organization Details LastModified Time 01/11/2019 MRI, lumbar spine, w/o contrast completed [facility] (Imaging) [address] [facility], [place], [address], 01/12/2019 11:22:18 03/24/2019 sacroiliac joint injection (PROC) [facility] [address] [place], [address], 03/28/2019 12:34:03 06/24/2020 imaging/diagnostic result completed [email or web address] [place] [address] [facility] [address], [place], [address], 06/25/2020 11:41:50 06/24/2020 imaging/diagnostic result completed [email or web address] [facility] [address], [place], [address], 06/25/2020 11:41:34 07/05/[email or web address] [facility] [address], [place], [address], 07/10/2020 10:27:04 07/08/[email or web address] [facility] [address], [place], [address], 07/10/2020 10:26:53 06/08/2020 imaging/diagnostic result completed [email or web address] Information not available 10/01/2020 09:13:19 11/14/2020 exercise stress test completed [email or web address] [facility] [address], [place], [address], 11/18/2020 15:27:08 11/15/2020 US, carotid artery completed [email or web address] [facility] [address], [place], [address], 11/18/2020 15:28:06 11/25/2020 imaging/diagnostic result completed [address] [facility] [address], [place], [address], 11/26/2020 12:25:26 02/21/2021 cardiac telemetry [address] [facility] [address], [place], [address], 03/17/2021 11:35:47 08/11/2022 imaging/diagnostic result completed [facility] [address], [place], [address], 10/14/2022 16:10:57 09/15/2022 imaging[facility]diagnostic [facility] [address], [place], [address], 10/14/2022 16:11:17 09/28/2022 imaging/diagnostic result [facility] [address], [place], [address], 10/14/2022 16:11:23 09/28/2022 imaging/diagnostic result [facility] [address], [place], [address], 10/14/2022 16:11:29 09/28/2022 imaging/diagnostic result completed [facility] [address], [place], [address], 10/14/2022 16:11:36 04/06/2023 [facility], [facility] [address], [place], [address], 05/20/2023 11:17:42 04/15/2023 [facility] [address], [place], [address], 05/20/2023 11:17:53 04/16/2023 electrocardiogram completed aspraggs [facility] [address], [place], [address], 05/20/2023 11:17:58 04/16/2023 electrocardiogram completed aspraggs [facility] [address], [place], [address], 05/20/2023 11:18:06 04/16/2023 , echocardiogram completed aspraggs [facility] [address], [place], [address], 05/20/2023 11:16:12 04/16/2023 [facility] [address], [place], [address], 05/20/2023 11:19:11 04/23/2023 [facility] [address], [place], [address], 05/20/2023 11:21:31 09/09/2024 [facility], [facility], w[facility]o contrast [facility] [place] [address] Imaging [address] [facility] [address], [place], [address], 09/11/2024 09:09:05 Procedure Notes None recorded. Medical Equipment None Reported. Allergies No known drug allergies Medications Name Sig Start Date Stop Date Status Note LastModified by Organization Details LastModified Time symbicort 160-4.5 mcg/act aero Take 2 puffs twice a day active Not Available Not Available No t Available amoxicill in 500 mg caps active Not Available Not Available Not Available vitamin d 14839 unit caps active Not Available Not Available No t Available losartan potassium /hydrochl orothiazi de 50-12.5 mg tabs Take 1 tablet by [facility] everyday active Not Available Not Available No t Available cefuroxim e axetil 500 mg tabs active Not Available Not Available Not Available afluria pf 2586-5335 .5 ml raji active Not Available Not Available Not Available cyclobenz aprine hcl 10 mg tabs active Not Available Not Available Not Available cartia xt 240 mg cp24 Take 1 tablet by mouth everyday active Not Available Not Available No t Available citalopra m hydrobrom solo 20 mg tabs Take 1 tablet by mouth every day active Not Available Not Available No t Available omeprazol e 40 mg cpdr Take 1 tablet by mouth every day active Not Available Not Available No t Available ventolin hfa 108 (90 base) mcg/actae rs active Not Available Not Available Not Available hydrocodo ne/acetam inophen 7.5-325 mg tabs active Not Available Not Available Not Available oxycodone /acetamin ophen 5-325 mg tabs active Not Available Not Available Not Available diclofena c sodium dr 75 mg tbec active Not Available Not Available Not Available lovastati n 20 mg tabs Take 1 tablet by mouth everyday active Not Available Not Available No t Available amoxicill in/clavul anate potassium 875-125 mg tabs active Not Available Not Available Not Available clonazepa m 0.5 mg tabs active Not Available Not Available Not Available hydrocodo ne/acetam inophen 5-325 mgtabs Take 1 tablet by mouth everyday as needed active Not Available Not Available No t Available tramadol hcl 50 mg tabs active Not Available Not Available Not Available diltiazem cd 240 mg cp24 active Not Available Not Available Not Available cyclobenz aprine 10 mg tablet 08/22 completed Not Available Not Available Not Available amoxicill in 500 mg capsule Take 1 capsule every 8 hours by oral route for 5 days. 09/19 completed Not Available Not Available Not Available fluconazo le 100 mg tablet TAKE 1 TABLET BY MOUTH ONCE DAILY FOR 7 DAYS. Do not take lovastat in while taking medicati on 09/25 completed Not Available Not Available Not Available metformin 500 mg tablet TAKE 1 TABLET BY MOUTH ONCE DAILY WITH SUPPER active Not Available Not Available No t Available albuterol sulfate 0.63 mg/3 mL solution for nebulizat ion One treatmen t inhaled in clinic 10/07 completed Not Available Not Available Not Available doxycycli ne hyclate 100 mg capsule TAKE 1 CAPSULE BY MOUTH TWICE DAILY WITH MEALS FOR 10 DAYS 08/22 completed Not Available Not Available Not Available carvedilo l 12.5 mg tablet 08/22 completed Not Available Not Available Not Available albuterol sulfate 2.5 mg/3 mL (0.083 %) solution for nebulizat ion one neb tx during office visit 10/07 completed Not Available Not Available Not Available citalopra m 40 mg tablet TAKE 1 TABLET BY MOUTH ONCE DAILY active Not Available Not Available No t Available azithromy cristo 250 mg tablet TAKE 2 TABLETS (500 MG) BY ORAL ROUTE ONCE DAILY FOR 1 DAY THEN 1 TABLET (250 MG) BY ORAL ROUTE ONCE DAILY FOR 4 DAYS 11/24 completed Not Available Not Available Not Available ibuprofen 800 mg tablet 09/19 completed on warfarin Not Available Not Available Not Available fluconazo le 150 mg tablet TAKE TWO TABLETS BY MOUTH NOW, AND THEN REPEAT DOSE IN ONE WEEK active Not Available Not Available No t Available levetirac etam 500 mg tablet TAKE 1 TABLET BY MOUTH EVERY 12 HOURS active Not Available Not Available No t Available albuterol sulfate 1.25 mg/3 mL solution for nebulizat ion Inhale 3 mL 3 times a day by inhalati on route as needed for 30 days. 08/22 completed Not Available Not Available Not Available hydrocodo ne 5 mg-acetam inophen 325 mg tablet Take 1 tablet every 8 hours by oral route as needed. 10/07 completed Not Available Not Available Not Available prednison e 20 mg tablet TAKE 3 TABLETS BY MOUTH ONCE DAILY FOR 2 DAYS, THEN 2 TABS DAILY FOR 2 DAYS, THEN 1 TAB DAILY FOR 2 DAYS, THEN 1/2 TAB DAILY FOR 2 DAYS 08/22 completed Not Available Not Available Not Available alendrona te 70 mg tablet Take 1 tablet every week by oral route. 08/22 completed Not Available Not Available Not Available clonazepa m 0.5 mg tablet active Not Available Not Available Not Available clobetaso l 0.05 % topical cream APPLY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 Syncope and collapse 309 394760 R55 Has had 3-4 syncopal episodes since last visit in September, usually preceded by cough. To see neurology January 25. Cardiology w/u negative. Complainin g of - melena 920758643 K92.1 check CBC, cont to monitor BMs. History of anemia - iron deficient 217015259 Z86.2 repeat labs w/ report of dark stools in recent weeks Body mass index 30+ - obesity 078097352 Z68.33 working on weight loss using [employer]. Neuropathy 301449325 G62 .9 c/o toes on both feet w/ mild numbness in last few months. h/o hyperglyce val, worried about DM Gastroesop hageal reflux disease without esophagitis 052251780 K21.9 cont PPI. may need repeat EGD/colono scopy if signs of anemia on labs w/ reported few episodes of dark stools. Diverticular disease [address] scan to r/o acute infection w/ diffuse tenderness on exam and worsening pain over the last several seeks. Essential hypertension 90520690 I10 controlled after cardiology compressio n tx. cont current meds. Cont to monitor BP at home. Hyperglycemia 45443120 R 73.9 last A1c 6.1%, doing [employer] diet now. [id number] JIM Hall (Adult Med) [address] [place] [address] 04/04/2018 08:17:16 04/04/2018 09:44:57 Syncope and collapse 523863909 R55 neurologis t dx her w/ seizures after EEG and CT brain. She had 2 episodes since she started Keppra about 3 weeks ago but none in the past week. Recommend she not take tramadol since it wasn't helping and may lower seizure threshold. Call neurology if she has another episode in case they want to increase Keppra Gastroesop hageal reflux disease without esophagitis 549312251 K21.9 cont PPI, add PRN ranitidine for breakthrou gh. discussed possible side effect of keppra causing increased nausea, acid production . Also discussed NSAIDs & fosomax causing same. Osteoporosis 25816530 M8 1.0 Cont fosomax for another year, repeat Bone density next year (2018). cont to take calcium and vitamin D supplement s. Essential hypertension 53846210 I10 Pt reports feeling less fatigued when she took break from her meds this past weekend. Discussed need to wean off medication s rather than stopping suddenly. Also need to make sure BP stays controlled prior to stopping any meds. She has f/u with cardiology in the next few weeks, will get labs at that time. [id number] JIM Hall (Adult Med) [address] [place] [address] 05/17/2018 14:47:01 05/18/2018 17:22:18 Chronic obstructive pulmonary disease 29538469 J44.1 advised to decrease symbicort to just 2 puffs BID; decrease ventolin use, start nebulizer up to 4 times a day for current exacerbati on Pulmonary emphysema 8743 3001 J43.2 mild to moderate centrilobu lar noted on CT chest 04/2018. she has stopped smoking since study was done. Leakage of breast implant 720030567 T85.43XA Right breast implant intracapsu lar rupture noted on CT chest. h/o silicone implants done when she was 24yo. Tobacco de pendence in remission 740683171 F17.201 she has quit smoking, she can cont e-cig w/o nicotine PRN Essential hypertension 41402866 I10 restarted her meds, BP is better. still feels tired. she hasn't rec'd full results of her loop recorder yet and has ECHO scheduled in 2 weeks. She would like labs drawn in this clinic, she will call with labs ordered by cardiology Infection of tooth 88027 8007 K04.7 treat w/ abx prior to dental work to correct cracked tooth [id number] JIM Hall (Adult Med) [address] [place] [address] 09/19/2018 11:37:59 09/19/2018 14:46:14 Osteoporosis 45078056 M81.0 Pharmacy had not refilled her fosamax, recommend she restart and we can repeat DEXA one year from now since she hasn't taken med since March. Ventricula r tachycardia 72466281 I47.2 Likely cause of her syncopal episodes, finally captured on loop recorder. She is scheduled for cardiac w/u including stress test and labs, then goes for Cardiac cath and AICD/pacem do placement 10/06/2018 , discussed importance of this as V-tach can cause sudden . cardiology started her on warfarin, stopped her ASA. They will follow INR checks. Advised her to stop all NSAIDs, Tylenol ok for pain. Otalgia of right ear 414 0522950 683870 H92.01 restart flonase Essential hypertension 84104847 I10 elevated this AM, hasn't taken meds yet, usually better controlled since she had ECP treatments . She has f/u with cardiology in preparatio n for AICD/pacem do Seizure disorder 4651419 02 G40.909 still taking keppra, possibly related to V-tach Lumbago with sciatica 20 6633308 M54.42 we will revisit once she has had all her cardiology procedures done. Cont home stretches & exercises, Tylenol for pain. [id number] JIM Hall (Adult Med) [address] [place] [address] 11/07/2018 11:45:37 11/07/2018 17:40:11 Essential hypertension 50374377 I10 Better today; no pacemaker placed. EP ablation done Gastroesop hageal reflux disease without esophagitis 453160546 K21.9 cont PPI, and PRN ranitidine for break-thro ugh. discussed possible side effect of keppra causing increased nausea, acid production . Also discussed NSAIDs & fosomax causing same. Vitamin D deficiency 347 27361 E55.9 Cardiology labs showed it was 29. Restart vit D supplement 50,000 iu weekly, recommend goal of 40 or greater w/ her hx of osteoporos is Low back pain 826299402 M54.[address] Higgins for ortho. If he is not able to evaluate or treat her low back, pt will call here for ortho spine referral. Ventricula r tachycardia 71892274 I47.2 s/p EP ablation, she has not been dizzy. But induced a. flutter only. Stopped coumadin; w/ APARICIO we can try reducing CCB to immediate relase 60mg BID dose and possibly wean off med if HR cont to be well controlled . Cont carvedilol . Cardiology f/u not until December or so. Reviewed labs & studies done by cardiology Lumbar radiculopathy [address] Higgins for ortho; radiating into left pelvic area; not sure if left 3rd & 4th toes are from low back. Needs further eval, will start w/ x-rays and see what ortho recommends . [id number] Ho Rivas MD [facility] (Adult Med) [address] [place] [address] 02/06/2019 10:53:19 02/07/2019 09:30:13 Ventricular tachycardia 90470195 I47.2 s/p EP ablation, she has not been dizzy since then until the past week. APARICIO also resolved. Essential hypertension 29784517 I10 Controlled ; no pacemaker placed. EP ablation done. Cont carvedilol , diltiazem, hctz Hyperlipidemia 67382702 E78.5 labs were good in Sep. LDL 97, cont statin Chronic ob structive pulmonary disease 20482425 J44.1 no recent exacerbati on; cont current inhalers, advised again to quit smoking Tobacco user 383087023 Z 72.0 patient again advised to quit smoking, has deferred any assistance . she will consider vaping w/ decreased nicotine. Dizziness 060338933 R42 Had greatly improved when she had cardiac ablation done. Current sxs possibly due to allergies, restart flonase. She had to reschedule f/u with neurology. Seasonal a llergic rhinitis 296172034 J30.2 restart flonase Pruritic disorder 120559 002 L29.9 to right ear, try few drops of witch vipul oil at bedtime to right ear. Spinal pankaj nosis of lumbar region 97382602 M48.061 Reviewed MRI results w/ pt. disc bulging and stenosis most prominent at L3-4 and L4-5, reviewed distributi on of these nerves and that could explain some of her left hip pains. Has appt w/ [facility] neurosurge on for further evaluation , she is reluctant to have any surgery, would consider injections first. She continues PT and that is only giving her minimal relief. she will consider CBD tx instead of marijuana to see if she still gets benefit w/o sedating effects of THC. [id number] ANA Wilosn [facility] [place] [address] [place] [address] 08/22/2024 08:53:10 08/22/2024 10:47:59 Obesity 806231244 E66.9 discussed healthy diet, exercise, controllin g carbohydra edinson and added sugars in the diet Body mass index measurement declined 0923733456 99395 Z53.20 Patient declined weight today Chronic ob structive pulmonary disease 48092576 J44.9 Patient is stable on Symbicort and albuterol therapy Benign ess ential hypertension 0309977 I10 Boost to valsartan 80mg daily. BP is elevated 140/90 today. Refill hydrochlor othiazide 12.5 mg daily Hyperlipidemia 53158263 E78.5 Restart lovastatin 20 mg daily and check fasting lipid panel Mixed anxi ety and depressive disorder 035660106 F41.8 Refill citalopram 40 mg daily. Patient is stable Seizure disorder 6258749 02 G40.909 Patient is taking Keppra and follows with Neurology. She is unsure of how long it has been since she has had seizures. Greater than 6 months but under 2 years since last episode Obstructiv e sleep apnea syndrome 24008824 G47.33 wearing cpap nightly per patient report. Long-term drug therapy 871997968 Z79.891 All labs are due Candidiasis of skin 4988 3006 B37.2 Start intensive nystatin cream topped with powder and fluconazol e treatment course and refer promptly to Dermatolog y for more in-depth management Prediabetes 351552895 R7 3.03 Refill metformin 500 mg daily and check updated insulin and A1c labs Acid reflux 115239199 K2 1.9 Restart omeprazole 40 mg daily for reflux management . She had ran out of the prescripti on refills History of polyp of colon 022470183 Z86.0100 Patient has a history of colon polyps and is due for follow-up procedure Administra tion of influenza vaccine 65661466 Z23 Flu shot given today Positive s creening for depression on PHQ-9 (Patient Health Questionnaire 9) 1294175577 64891 Z13.31 Patient scored a 6 on screening today. Her citalopram is managing her mental health without acute concerns [id number] ANA Wilson [facility] [place] [address] [place] [address] 09/25/2024 13:41:52 09/25/2024 14:56:56 Benign essential hypertension 4762043 I10 bp much better on repeat checks today. 130/80 range. valsartan 80mg daily and HCTZ 12.5mg daily. Prediabetes 654498615 R7 3.03 5.8% A1c. Continue metformin 500 mg daily Hyperlipidemia 12041495 E78.5 Continue lovastatin 20 mg daily. Labs are stable repeat again in February Chronic ob structive pulmonary disease 93529456 J44.9 Patient is stable on Symbicort and albuterol therapy Mixed anxi ety and depressive disorder 899896490 F41.8 citalopram 40 mg daily. Patient is stable Acid reflux 793122435 K2 1.9 omeprazole 40 mg daily for reflux management . Symptoms are under good control now that she has restarted PPI therapy Seizure disorder 2359555 02 G40.909 Patient is taking Keppra and follows with Neurology. She is unsure of how long it has been since she has had seizures. Greater than 6 months but under 2 years since last episode Obstructiv e sleep apnea syndrome 70280904 G47.33 wearing cpap nightly per patient report. Obesity 998586310 E66.9 discussed healthy diet, exercise, controllin g carbohydra edinson and added sugars in the diet Long-term drug therapy 026330444 Z79.891 Next set of lab orders given for February History of polyp of colon 698738120 Z86.0100 Patient has a history of colon polyps and is due for follow-up procedure new referral given [facility] because her insurance is not being accepted at [facility] any longer Dizziness 178314594 R42 Proceed with MRI of the brain with and without contrast for increasing ly progressiv e dizziness that is causing imbalance and difficulty staying steady at times. Screening mammography 24 344129 Z12.31 Mammogram order also given for [facility] Body mass index 30+ - obesity 216738209 Z68.30 BMI is 30.6 [id number] ANA Wilson [facility] [place] [address] [place] [address] 01/25/2025 13:48:05 01/25/2025 14:42:58 Pain in left foot 5325800519 40246 M79.672 refer to emu farmer specific now to have reconciliation specialist consult with her on her foot injury that occurred in 2022. History of fracture 3910 74637 Z87.81 hx of left traumatic foot fracture from metal frame approx 60 pounds that that directly fell on top of the left foot and fractured bones, and 6 months of walking boot. still in pain constant. Health Concerns Section Related Observation LastModified by Organization Detai ls LastModified Time None Recorded Concern Status LastModified by Organization Details LastModified Time None Recorded Advance Directives Directive N: Payers Encounter Date Sequence Insurance Name Policy Number Policy Thomas Covered Member ID Thomas Member ID Guarantor Name 11/07/2018 1 [place] [facility] - DOS PRIOR TO 20 (HMO) Yajaira Solo [id number] Yajaira Solo 02/06/2019 1 [facility] - DOS PRIOR TO 2021 (MEDICAID REPLACEMENT - HMO) Yajaira Solo [id number] Yajaira Solo 08/22/2024 1 [facility] (MEDICARE REPLACEMENT/AD VANTAGE - HMO) [id number] Yajaira Solo [id number] [facility] 09/25/2024 1 [facility] (MEDICARE REPLACEMENT/AD VANTAGE - HMO) [id number] [facility] [id number] [facility] Notes Date Note Type Note Provider Name and Address Organization Details Recorded Time 11/07/19 19 text/htm l Care Management - HypertensionReported bypatient.Self Care:under emotional stress; at work Severity:symptoms are improving; does not interfere with daily activities Associated Symptoms:no dizziness; no lightheadedness; no shortness of breath; no palpitations; no calf muscle cramps; no confusion;chest pain;edema;blurred vision;headaches;fatigue(OK after resting over the weekend but after 2 days of working feels exhausted again.)Notes:Had EP ablation done, no more dizziness. But getting daily APARICIO and very tired all the time, still taking carvedilol and cartia XT dailyHypertension F/UReported bypatient.Associated Symptoms:no dizziness; no lightheadedness; no shortness of breath; no palpitations; no calf pain with exertion;chest pain(s/p EP ablation);edema Lifestyle:limiting/avoiding salt;not exercising regularly Medications:taking medications as directed; no side effects from medication GERD, some days has to add ranitidine to omeprazolelow back pain especially left low back radiates into ovary , left hip prosthesis and left 3rd & 4th toes numb, 4th toe painful. she saw ortho 1-2 years ago and was told x-ray showed hardware was good. Nahed Ceballos PA-C Attn: Accounting,[address] [place] [address], [id number], [facility] 11/07/2018 13:01:16 02/07/20 19 text/htm l Hypertension F/UReported bypatient.Associated Symptoms:dizziness(w/ sinus pressure usually right before work, head feels heavy, APARICIO starting too. Missed neuro appt, too long of a wait.); starting to have position change dizziness w/ turning head. right ear very pruritic. After cardiac ablation dizziness had resolved mid back pain; travels up her spine, better when she lays flat when she pops her back. Lifestyle:limiting/avoiding salt;not exercising regularly(due to severe back pain & left hip pain); started back on low adelina diet, doing smoothies, working on weight loss, cut out high calorie foods. but can be difficult when she had long day at work and just wants to go to bed, works 3rd shift. Medications:taking medications as directed; no side effects from medication low back pain persists, doing PT, TENS unit most helpful. referred by ortho to see neurosurgeon at [facility]. MRI done. bending over causes pain into medial thigh; but most of her problems are left outer thigh and pain extends into left big toe. No bowel or bladder dysfunction saw ortho a year ago and told her hip replacement hardware were fine.can't hardly walk or get out of car after work most dayslight touch along hip incision from [place] causes excruciating pain when she has severe paintried edible marijuana, small amount helped her pain, but she slept almost all day. using hydrogen peroxide to both ears to keep wax-free, but right ear itches terribly lately, using a little lotion on q-tip but no relief. Not using flonase right now. Ho Rivas MD Attn: Accounting,[address] [facility], [place], [address], [facility] 02/15/2019 01:12:09 08/22/20 24 text/htm l Patient takes Keppra 500 mg twice daily for history of seizure disorder. She follows with Neurology and is stable. Dr. Vasquez is her neurologist. She has been seizure-free for: She is unsure. ANA Wilson Attn: Accounting,[address] [facility], [place], [address], [facility] 08/22/2024 10:29:27 08/22/20 24 text/htm l Anxiety/DepressionReported bypatient.Notes:Patient is stable on citalopram 40 mg dailyCOPDReported bypatient.Notes:For COPD management patient is on Symbicort high dose as well as albuterol inhaler managementDiabetesReported bypatient.Notes:Patient is taking metformin 500 mg dailyHyperlipidemiaReported bypatient.Notes:Patient is taking lovastatin 20 mg daily and is due for updated labsHypertensionReported bypatient.Notes:Patient is taking hydrochlorothiazide 12.5 mg daily and valsartan 40 mg daily for blood pressure managementReflux/GERDReported bypatient.Notes:Acid reflux management is with omeprazole 40 mg daily. ANA Wilson Attn: Accounting,[address] [facility], [place], [address], [facility] 08/22/2024 10:29:27 09/25/20 24 text/htm l Anxiety/DepressionReported bypatient.Notes:Patient is stable on citalopram 40 mg dailyCOPDReported bypatient.Notes:For COPD management patient is on Symbicort high dose as well as albuterol inhaler managementDiabetesReported bypatient.Notes:Patient is taking metformin 500 mg dailyHyperlipidemiaReported bypatient.Notes:Patient is taking lovastatin 20 mg daily and is due for updated labsHypertensionReported bypatient.Notes:Patient is taking hydrochlorothiazide 12.5 mg daily and valsartan 40 mg daily for blood pressure managementReflux/GERDReported bypatient.Notes:Acid reflux management is with omeprazole 40 mg daily. Patient takes Keppra 500 mg twice daily for history of seizure disorder. She follows with Neurology and is stable. Dr. Vasquez is her neurologist. She has been seizure-free for: She is unsure. ANA Wilson Attn: Accounting,[address] [facility], [place], [address], [facility] 09/25/2024 14:46:01 OBGyn Episode No OBEpisode recorded.
== END 2025-02-13 07:40 | disposition home or self-care (01) ==
PROVIDERS: PCP Physician Assistant; Visit Provider Psychiatry & Neurology Neurology
DX: G35 Multiple sclerosis (principal); G45.9 Transient cerebral ischemic attack, unspecified; R51.9 Headache, unspecified; G89.29 Other chronic pain; I40.9 Acute myocarditis, unspecified; G40.909 Epilepsy, unspecified, not intractable, without status epilepticus
CPT/HCPCS: 70553; 93880; A9579

== ENCOUNTER 2025-02-14 08:11 | Emergency (ER) | payer MEDICARE, SELFPAY ==
[2025-02-14] VITALS (46 sets, daily range): BP systolic 112–164; BP diastolic 56–152; PULSE 65–96; RESP 12–24; TEMP 36.4–36.8; O2SAT 91–98
--- NOTE | ~2025-02-14 | XR_ITS ---
EXAMINATION: XR chest 2V DATE: 02/14/2025 09:13 INDICATION: Shortness of breath. Lower limb edema. TECHNIQUE: frontal and lateral views of the chest were obtained. COMPARISON: Chest CT dated 06/08/2014 FINDINGS: The lungs are clear with no focal airspace opacities, pulmonary edema, pleural effusion or pneumothor ax. The cardiomediastinal silhouette is within normal limits for AP technique. Visualized bones and s oft tissues are unremarkable. IMPRESSION: 1. No acute cardiopulmonary disease. Reviewed, dictated and finalized at location A.
--- NOTE | ~2025-02-14 | US_ITS ---
EXAMINATION: US venous doppler [facility] DATE: 02/14/2025 11:09 INDICATION: Shortness of breath. Lower limb pain and swelling. TECHNIQUE: Grayscale ultrasound images without and with compression and Doppler ultrasound images of the bilateral lower extremity veins were obtained. COMPARISON: None. FINDINGS: The visualized portions of right common femoral vein, profunda (deep) femoral vein, femoral vein, pop liteal vein, posterior tibial veins, peroneal veins and greater saphenous vein outflow are patent. There is occlusive noncompressible deep venous thrombosis in the left femoral vein, popliteal vein, p osterior tibial vein and peroneal veins. The visualized portions of left common femoral vein, profund a femoral vein and greater saphenous vein outflow are patent. IMPRESSION: 1. Extensive deep venous fibrosis extending from the proximal left femoral vein through the posterio r tibial and peroneal veins at the calf. Dr. Medina discussed these findings with Dr. Nation at 11: 30 AM. Reviewed, dictated and finalized at location A. IMPRESSION: 1. Extensive deep venous fibrosis extending from the proximal left femoral vei n through the posterior tibial and peroneal veins at the calf. Dr. Medina dis cussed these findings with Dr. Nation at 11:30 AM.
--- NOTE | ~2025-02-14 | CT_ITS ---
Clinical Indication: Shortness of breath CT Scan of the Chest with Contrast: Technique: Contiguous sections were acquired throughout the chest after intravenous administration of 100 cc of Omnipaque 350. Dose reduction technique was used on this scan by utilizing automated expos ure control and iterative reconstruction technique. The dose-length product (DLP) was 549.57 mGy-cm. Findings: There is no evidence of any significant mediastinal, hilar or axillary lymphadenopathy. Extensive pul monary emboli present, with large emboli in the right and left main pulmonary arteries, extending int o lobar and segmental lower arteries bilaterally. No definite evidence for right heart strain. There is no evidence of aortic dissection or aneurysm. There is no evidence of pleural or pericardial effusion. The lungs are clear. No pulmonary nodules or infiltrates are noted. Images through the upper abdomen reveal no abnormalities. Impression: Extensive bilateral pulmonary emboli, as detailed above. No evidence for right heart strain. No saddl e embolus. Case discussed with ANA Nation at the time of this reading. Reviewed, dictated and finalized at location . Impression: Extensive bilateral pulmonary emboli, as detailed above. No evidence for right heart strain. No saddle embolus. Case discussed with ANA Nation at the time of this reading.
--- NOTE | 2025-02-14 08:22 | ECG_ITS ---
Test Date: 2025-02-14 08:27:06 Measurements Intervals [place] Rate: 84 P: 58 HI: 157 QRS: -49 QRSD: 98 T: -31 QT: 387 QTc: 460 Interpretive Statements SINUS RHYTHM LEFT AXIS DEVIATION INCOMPLETE RIGHT BUNDLE BRANCH BLOCK BORDERLINE R WAVE PROGRESSION, ANTERIOR LEADS CONSIDER INFERIOR INFARCT, AGE INDETERMINATE T WAVE ABNORMALITY IN ANTERIOR LEADS- CONSIDER ISCHEMIA BASELINE ARTIFACT- I, II, III, AVR, AVL, AVF, V3 ABNORMAL ECG No previous ECG available for comparison Electronically Signed On 02-14-2025 08:45:34 CDT by Donald Laird D.O.
--- OUTSIDE RECORDS SUMMARY | 2025-02-14 08:28 | XMS_ITS | Data Portability ---
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 Hopefully that will [...] more than half the time spent in qhxq-yw-cidc care. Not available 07/30/2023 09:36:56 08/27/2023 08/27/2023 [...] more than half the time spent in slrh-ma-ykmg care. Not available 09/06/2023 15:41:25 01/03/2024 01/03/2024 [...] 023 [email or web address] Not available 3 17:12:09 Referral social problems specialist referral 2022 023 [email or web address] Niki Rivera MD, [address] [facility] , [address], [place], [address], 4 08:58:22 gynecologis t referral - no referral required 2022 023 [email or web address] 4 Arturo Handy MD, [address], [place], [address], 3 14:27:33 Procedures colonoscopy procedure (PROC) - no referral required 2022 023 [email or web address] Mark Irizarry MD, [address], [address], [place], [address], 4 10:21:15 Surgeries None recorded. Imaging XR, foot 2023 024 [facility] [place], [address], [place], [address], 4 18:27:48 XR, foot 2022 023 [email or web address] [facility] [place], [address], [place], [address], 3 16:04:53 XR, foot 2022 023 [facility] [place], [address], [place], [address], 3 10:07:11 MAMMO, screening, digital, bilateral 2022 023 [email or web address] Not available 4 10:21:20 LDCT, chest, for lung cancer screening - no auth required 2022 023 DUC Not available 3 10:32:55 Medication Orders nystatin 100,000 unit/gram topical cream 2022 023 [facility] [address] [place], [address], 3 11:01:24 triamcinolo ne acetonide 0.1 % topical cream 2022 023 [facility] [address] [place], [address], 3 11:01:27 doxycycline hyclate 100 mg tablet [address] [facility] [address] [facility] [address] [place], [address], 3 08:55:18 prednisone 20 mg tablet [address] [facility] [address] [place], [address], 3 08:55:27 ergocalcife rol (vitamin D2) 1,250 mcg (50,000 unit) capsule 2022 023 [facility] [address] [place], [address], 3 11:01:27 Patient TargetsNo targets recorded. Patient Instructions Encounter Date Encounter Id Patient Instructions Last Modified By Organization Details Last Modified Time 07/19/2023 [id number] dementia rating scale-2* [email or web address] Not available 07/19/2023 11:11:55 multi-dimensiona health assessment questionnaire* [email or web address] Not available 07/19/2023 11:12:00 care plan* [email or web address] Not available 11:11:51 advance directiv es: care instructions Not available 07/19/2023 11:01:17 advance care planning: care instructions Not available 07/19/2023 11:01:17 [place] Advance Directives Not available 07/19/2023 11:01:17 Personalized [...] Screening: Your next PAP/pelvic in: 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 Referring Physician: Brenda Bowie, Internal Medicine, Encounter Date: 09/02/2023 Results Created Date Observation Date Name Description Value Unit Range Abnormal Flag Note LastModifiedBy Organization Detail LastModifiedTime 06/23/20 23 XR, knee No observ ation record ed. [email or web address] [facility] [place] [address], [place], [address], 06/23/2023 09:02:56 07/02/20 XR, foot No observ ation record ed. [facility] [place] [address], [address], 07/05/2023 14:33:19 07/30/20 XR, foot No observ ation record ed. [facility] [place] [address], [place], [address], 07/30/2023 09:38:31 08/06/2008/06/2023 LDCT, chest , for lung cance r maranda spears No observ ation record ed. [address], [place], [address], 09/02/2023 11:51:49 08/06/2008/06/2023 MAMMO , maranda spears, digit al, bilat eral No observ ation record ed. Not Available 2022 11:51:53 08/24/2008/24/2023 US, liver No observ ation record ed. [facility] [address] [place], [address], 09/02/2023 15:46:10 08/27/20 XR, foot No observ ation record ed. [facility] [place] [address], [place], [address], 09/06/2023 15:42:20 01/03/20 24 XR, foot No observ ation record ed. [facility] [place] [address], [place], [address], 01/03/2024 16:49:52 Result Notes None recorded. 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 360940059 Active 2022 Not Available [facility] 3 16:25:57 Pruritic rash 93491639 Active 2022 Not Available [facility] 3 16:25:58 Pain in left foot 65631925786 9107 Active 2022 Not Available [facility] 3 16:25:57 Vitamin D deficienc y 88224923 Active 2022 Not Available [facility] 3 16:25:57 Osteoporo sis 70846970 Active 2022 Not Available [facility] 3 16:25:58 Closed fracture of metatarsa l bone 90843860 Active 2022 Not Available [facility] 3 16:25:57 Closed fracture of metatarsa l bone 18859285 Active 2022 Jen Rider CMA null, [employer] [facility] [employer] [facility] 3 11:57:41 Osteoarth ritis of right knee joint 61882956166 9100 Active 2022 ZEINAB Garcia null, [employer] [facility] [employer] [facility] 3 08:32:21 Smoker 41916002 Active 2022 ANA Wilson [address], [address], [place], [address] , [employer] [facility] [employer] [facility] 3 10:56:02 Postmenop ausal bleeding 24786595 Active 2022 ANA Wilson [address], [address], [place], [address] , [facility] [employer] [facility] 3 10:58:21 Acute dermatiti s 06547759 Active 2022 ANA Wilson [address], [address], [place], [address] , [place] [facility] [place] [employer] 3 10:59:16 Liver enzymes level above reference range 727995499 Active 2022 ANA Wilson [address], [address], [place], [address] , [place] [facility] [employer] 3 13:37:43 Ground glass opacity Active 2022 ANA Wilson [address], [address], [place], [address] , [place] [facility] [employer] 3 11:53:16 Steatosis of liver 221944070 Active 2022 ANA Wilson [address], [address], [place], [address] , [place] [facility] [place] [employer] [facility] 3 11:55:36 Generaliz ed abdominal pain 777107424 Active 2021 Not Available [facility] 3 16:25:57 Disorder of shoulder 302655482 Active Not Available [facility] 3 16:25:57 Benign essential hypertens ion 3325057 Active 2021 Not Available [facility] 3 16:25:57 Fracture of bone 762587660 Active Not Available [facility] 3 16:25:57 Disorder of trunk 363751446 Active Not Available [facility] 3 16:25:57 Seizure disorder 140294835 Active 2021 Not Available [facility] 3 16:25:57 Hyperchol esterolem ia 49969066 Active 2016 Not Available [facility] 3 16:25:57 Chronic obstructi ve pulmonary disease 94551076 Active 2021 Not Available [facility] 3 16:25:57 Pain of right shoulder joint 70743687172 778306 Active 2021 Not Available [facility] 3 16:25:57 Wrist joint pain 157733400 Active Not Available [facility] 3 16:25:57 Partial thickness rotator cuff tear 305126871 Active Not Available [facility] 3 16:25:57 Degenerat edu joint disease of hand 23329039 Active Not Available [facility] 3 16:25:57 Gastroeso phageal reflux disease 532700276 Active 2019 Not Available [facility] 3 16:25:57 Osteoarth ritis of hip 042712846 Active Not Available [facility] 3 16:25:57 Osteoarth ritis of knee 817275657 Active Not Available [facility] 3 16:25:57 Shoulder joint pain 034411420 Active Not Available [facility] 3 16:25:57 Syncope 311527145 Active 2021 Not Available [facility] 3 16:25:57 Family history of malignant neoplasm 362969884 Active 2016 Not Available [facility] 3 16:25:57 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 55324375 Active Not Available [facility] 3 16:25:57 Tear of medial meniscus of knee 877040205 Active 2021 Not Available [facility] 3 16:25:57 Pain in pelvis 63080306 Active 2021 Not Available [facility] 3 16:25:57 Enthesopa thy of hip region 25741063 Active Not Available [facility] 3 16:25:57 Pain of left hip joint 40008019649 9100 Active 2021 Not Available [facility] 3 16:25:57 Depressiv e disorder 26440896 Active 2021 Not Available [facility] 3 16:25:57 Hypertens edu disorder 65697435 Active 2016 Not Available [facility] 3 16:25:57 Osteoarth ritis 810561019 Active Not Available [facility] 3 16:25:57 Periphera l vascular disease 170770246 Active 08/22/ 2022 Not Available [facility] 3 16:25:58 Hypothyro idism 80473071 Active 2021 Not Available [facility] 3 16:25:58 Hypokalem ia 28602384 Active 2021 Not Available [facility] 3 16:25:58 Tubular adenoma of colon 562697692 Active 2021 colonosco py done 12/17/21- she had a >1 cm tubular adenoma at the distal ascending colon that was referred to [facility] Endoscopy Not Available [facility] 3 16:25:58 Pain of right knee joint 20694880422 4100 Active 2021 Not Available [facility] 3 16:25:58 Hip pain 38030575 Active Not Available [facility] 3 16:25:58 Candidias is of skin 24751179 Active 2021 Not Available [facility] 3 16:25:58 Hyperlipi demia 83612217 Active 2021 Not Available [facility] 3 16:25:58 Candidias is of mouth 73370209 Active 2021 Not Available [facility] 3 16:25:58 Impaired glucose tolerance 5998861 Active 2021 Not Available [facility] 3 16:25:58 Notes:Some problems listed i n Document: #[id number] could not be added to this patient's chart. Please review this document and add these problems to the patient's chart manually as needed. Problem Notes None recorded. Procedures Surgical History Date Name Laterality Status Provider Name and Address Organization Details Recorded Time 07/19/20 Medicare Wellness CPT Code, subsequent completed RADHA Jones [employer] [facility] 07/19/2023 10:27:11 04/09/20 Most Recent Bone Density completed ZEINAB Bhardwaj [place] [facility] 07/16/2023 12:11:34 08/14/20 Date of Last Mammogram completed ZEINAB Bhardwaj [place] [facility] 07/16/2023 12:11:41 04/15/20 22 Date of Last Colonoscopy completed Not Available [facility] 12/23/2022 04:42:07 10/25/19 15 Total hip arthroplasty completed Not Available [facility] 12/23/2022 04:42:13 10/25/19 13 Total hip arthroplasty completed Not Available [facility] 12/23/2022 04:42:13 Ablation completed Not Available [facility] 04:42:13 Imaging Results Imaging Date Name Status LastModified by Organiz ation Details LastModified Time 06/23/2023 XR, knee completed [email or web address] [facility] [place] [address], [place], [address], 06/23/2023 09:02:56 07/02/2023 XR, foot completed [facility] [place] [address], [place], [address], 07/05/2023 14:33:19 07/30/2023 XR, foot completed [facility] [place] [address], [place], [address], 07/30/2023 09:38:31 08/06/2023 LDCT, chest, for lung cancer screening completed [address] [place], [address], 09/02/2023 11:51:49 08/06/2023 MAMMO, screening, digital, bilateral completed Information not available 09/02/2023 11:51:53 08/24/2023 US, liver completed [facility] [address] [facility] [place], [address], 09/02/2023 15:46:10 08/27/2023 XR, foot completed [facility] [place] [address], [place], [address], 09/06/2023 15:42:20 01/03/2024 XR, foot completed [facility] [place] [address], [place], [address], 01/03/2024 16:49:52 Procedure Notes None recorded. Medical [...] suspension for injection in office 07/16 completed [facility]: 0003- 0494- 20 Not Available Not Available [...] administe red by the provider 02/26 completed [facility]: 0409- 4276- 17 Not Available Not Available [...] %) injection solution in office 09/01 completed [facility] [phone] -064- 01 Not Available Not Available Not [...] Updated DateTime 3 160.02 cm 31.9 kg/m2 59009.6 3 g 98.1 [degF] 83 /min 97 % 97 % 132 mm[Hg] 80 mm[Hg] April Kaplan RN [facility] [place] [facility] 3 10:33:49 Date Recorded Body height Provider Name an d Address Organization Details Last Updated DateTime 07/30/2023 160.02 cm ZEINAB Garcia [facility] 07/30/2023 08:51:36 Date Recorded Body height Provider Name an d Address Organization Details Last Updated DateTime 08/27/2023 160.02 cm Gayla Leal [facility] 08/27/2023 08:55:04 Date Recorded Body height Body temperature Body mass index (BMI) Body weight Heart rate Respiratory rate Oxygen saturation Oxygen saturation in Arterial blood by Pulse oximetry Systolic blood pressure Diastolic blood pressure Provider Name and Address Organization Details Last Updated DateTime 3 160.02 cm 97.2 [degF] 33 kg/m2 98327.9 8 g 64 /min 16 /min 93 % 93 % 130 mm[Hg] 80 mm[Hg] Lenore Santo [facility] 3 11:28:59 Date Recorded Body height Provider Name an d Address Organization Details Last Updated DateTime 01/03/2024 160.02 cm Gayla Leal [facility] 01/03/2024 14:20:57 Social History Question Answer Notes LastModified by Organizat ion Details LastModified Time Tobacco Smoking Status Current Every Day Smoker Not Available [facility] 12/23/2022 04:06:30 Do You Have An Advance Directive? Yes MIGRATION.69606 41197 Information not available 12/23/2022 What Is Your Level Of Alcohol Consumption? None MIGRATION.96863 89559 Information not available 12/23/2022 Are You Blind Or Do You Have Difficulty Seeing? Yes MIGRATION.32188 34087 Information not available 12/23/2022 What Is Your Level Of Caffeine Consumption? Occasional MIGRATION.36577 49027 Information not available 12/23/2022 How Much Tobacco Do You Chew? None MIGRATION.47971 68705 Information not available 12/23/2022 In The 14 Days Before Symptom Onset, Have You Had Close Contact With A Laboratory-confir med COVID-19 While That Case Was Ill? No MIGRATION.53820 44099 Information not available 12/23/2022 In The 14 Days Before Symptom Onset, Have You Had Close Contact With A Person Who Is Under Investigation For COVID-19 While That Person Was Ill? No MIGRATION.28115 92472 Information not available 12/23/2022 Are You Deaf Or Do You Have Serious Difficulty Hearing? Yes MIGRATION.08151 19592 Information not available 12/23/2022 What Type Of Diet Are You Following? REGULAR MIGRATION.35362 64978 Information not available 12/23/2022 Which Illicit Or Recreational Drugs Have You Used? None MIGRATION.61285 44378 Information not available 12/23/2022 Do You Or Have You Ever Used E-cigarettes Or Vape? Never Used Electronic Cigarettes MIGRATION.93535 78064 Information not available 12/23/2022 Have There Been Any Changes To Your Family Or Social Situation? No MIGRATION.15117 30862 Information not available 12/23/2022 Are There Any Guns Present In Your Home? No MIGRATION.15716 52670 Information not available 12/23/2022 Do You Use Insect Repellent Routinely? No MIGRATION.65886 61870 Information not available 12/23/2022 Presence Of Domestic Violence No [email or web address] Information no t available 07/19/2023 Are You Able To Care For Yourself? Yes [email or web address] Information not available 07/19/2023 Are You Blind Or Do Yo Have Difficulty Seeing? Yes Reading Glasses [id number] Information not available 07/19/2023 Are You Deaf Or Do You Have Serious Difficulty Hearing? No [email or web address] Information not available 07/19/2023 General Stress Level? Moderate [email or web address] Information not available 07/19/2023 Live Alone Of With Others? Alone [email or web address] Information not available 07/19/2023 Do You Have A Medical Power Of Tug Master? Yes Good Friend, Gayla Ruiz MIGRATION.06185 41892 Information not available 12/23/2022 What Was The Date Of Your Most Recent Tobacco Screening? 03/05/2021 MIGRATION.15695 05394 Information not available 12/23/2022 Do You Have Any Pets? Yes MIGRATION.30152 13329 Information not available 12/23/2022 What Is Your Relationship Status? Single MIGRATION.60597 18222 Information not available 12/23/2022 Do You Use Your Seat Belt Or Car Seat Routinely? Yes MIGRATION.23105 54769 Information not available 12/23/2022 Do You Have Smoke And Carbon Monoxide Detectors In Your Home? Yes MIGRATION.51758 96754 Information not available 12/23/2022 At What Age Did You Start Smoking Tobacco? 24 MIGRATION.92459 61911 Information not available 12/23/2022 Are You Passively Exposed To Smoke? Yes MIGRATION.68139 79671 Information not available 12/23/2022 Do You Or Have You Ever Used Smokeless Tobacco? Never Used Smokeless Tobacco MIGRATION.52340 87679 Information not available 12/23/2022 Are There Any Smokers In Your House? Yes MIGRATION.63381 01919 Information not available 12/23/2022 How Much Tobacco Do You Smoke? 1 PPW MIGRATION.82191 07762 Information not available 12/23/2022 Do You Use Any Illicit Or Recreational Drugs? No MIGRATION.02193 11231 Information not available 12/23/2022 Do You Use Sunscreen Routinely? Yes MIGRATION.31884 43534 Information not available 12/23/2022 How Many Years Have You Smoked Tobacco? 25 MIGRATION.91870 80639 Information not available 12/23/2022 Have You Recently Traveled Abroad? No MIGRATION.52337 19898 Information not available 12/23/2022 Do You Have Any Dietary Restrictions? No MIGRATION.26428 54240 Information not available 12/23/2022 Do You Or Have You Ever Used Any Other Forms Of Tobacco Or Nicotine? No MIGRATION.71778 37475 Information not available 12/23/2022 Sex: Female Functional Status Question Answer Note LastModified by Organizat ion Details LastModified Time Do you have difficulty walking or climbing stairs? Yes MIGRATION.9898411 026 Information not available 12/23/2022 Do you have transportation difficulties? Yes MIGRATION.4904400 026 Information not available 12/23/2022 Are you able to walk? YESASSIST Information not available 07/19/2023 Do you have difficulty doing errands alone? No MIGRATION.1206118 026 Information not available 12/23/2022 Are you able to care for yourself? Yes MIGRATION.9742696 026 Information not available 12/23/2022 Do you have difficulty dressing or bathing? No MIGRATION.4248384 026 Information not available 12/23/2022 What is your exercise level? None MIGRATION.0600379 026 Information not available 12/23/2022 Mental Status Question Answer Note LastModified by Organizat ion Details LastModified Time Do you have difficulty concentrating, remembering or making decisions? No MIGRATION.361651401 6 Information not available 12/23/2022 Family History Relationship Description Onset Age of this Age Resolved Age Notes LastModified by Organization Details LastModified Time Father Heart disease MIGRATION.364 [id number] Not available 12/23/2022 04:42:14 Father Hypertensive disorder MIGRATION.635 [id number] Not available 12/23/2022 04:42:14 Father Diabetes mellitus MIGRATION.188 9101261 Not available 12/23/2022 04:42:14 Mother Heart disease MIGRATION.358 8995004 Not available 12/23/2022 04:42:14 Mother Family history of malignant neoplasm MIGRATION.758 8129549 Not available 12/23/2022 04:42:14 Mother Diabetes mellitus MIGRATION.780 8483528 Not available 12/23/2022 04:42:14 Medical History Condition Response ARTHRITIS Y HEARTBURN / REFLUX Y COPD Y HYPERTENSION Y CANCER: SPECIFY Y URINARY/BLADDER/KIDNEY PROBLEMS Y Gynecological History Statement/Question Response Date of Last Pap Date of Last Mammogram 08/14/2022 Date of Last Colonoscopy 02/06/2022 Date of Last Mammogram 08/14/2022 Most Recent Bone Density 04/09/2023 Obstetrics History GPAL:G 0 P 0 0 0 0 Immunizations Vaccine Type Date Status Note Provider Nam e and Address Organization Details Recorded Time Influenza, high-dose, quadrivalent, PF 0 completed Not Available [facility] 05/03/2023 16:25:58 Pneumococcal conjugate PCV 13 0 completed Not Available [facility] 05/03/2023 16:25:58 Past Encounters Encounter ID Performer Location Encounter Start Date Encounter Closed Date Diagnosis/Indication Diagnosis SNOMED-CT Code Diagnosis ICD10 Code Diagnosis Note [id number] [facility] [address] [place] [address] 02/05/2021 00:00:00 02/10/2021 12:15:[id number] [facility] ([place], [place]) [address] [place] [address] 02/27/2021 00:00:00 03/02/2021 16:07:23 [id number] [facility] [place] [address] [place] [address] 03/05/2021 00:00:00 03/15/2021 22:29:08 [id number] [facility] [place] [address] [place] [address] 03/17/2021 00:00:00 03/21/2021 18:02:04 [id number] [facility] [place] [address] [place] [address] 04/16/2021 00:00:00 04/16/2021 10:28:54 [id number] [facility] [place] [address] [place] [address] 06/23/2021 00:00:00 06/23/2021 22:41:56 [id number] [facility] [place] [address] [place] [address] 09/08/2021 00:00:00 09/23/2021 18:26:16 [id number] [facility] [place] [address] [place] [address] 01/14/2022 00:00:00 02/01/2022 17:50:53 [id number] [facility] [place] [address] [place] [address] 02/04/2022 00:00:00 02/04/2022 09:06:32 [id number] [facility] [place] [address] [place] [address] 02/20/2022 00:00:00 02/20/2022 09:19:09 [id number] [facility] [place] [address] [place] [address] 03/13/2022 00:00:00 03/13/2022 09:18:53 [id number] [facility] [place] [address] [place] [address] 06/15/2022 00:00:00 06/21/2022 10:43:56 [id number] [facility] [place] [address] [place] [address] 09/25/2022 00:00:00 09/25/2022 10:14:07 [id number] [facility] [place] [address] [place] [address] 11/13/2022 00:00:00 11/22/2022 13:34:26 [id number] [facility] [place] [address] [place] [address] 12/11/2022 00:00:00 12/11/2022 09:22:01 [id number] Ran Carney MD [facility] [place] [address] [place] [address] 01/22/2023 10:02:11 01/25/2023 09:58:48 Partial thickness rotator cuff tear 953902935 M75.101 Neck pain 25175176 M54.2 Ulnar nerv e entrapment at elbow 975013824 G56.21 [id number] ANA Wilson [facility] [place] [address] [place] [address] 02/10/2023 13:59:07 02/10/2023 14:36:32 Pruritic rash 31462526 L28.2 Rx for steroid cream and nystatin as well to utilize both for different rashes. groin with jud that needs antifungal tx. steroid cream for buttock region. Hypothyroidism 75191339 E03.9 due for TFTs. not on supplement therapy. Hyperlipidemia 39119729 E78.5 on statin therapy, due for fasting lipids Impaired g lucose tolerance 2036162 R73.03 a1c due w/IGT hx Long-term drug therapy 159614894 Z79.899 all routine bmp, lft and CBC labs due History of polyp of colon 467979369 Z86.010 due for colonoscop y f/u screening [id number] ANA Lua [facility] [address] [place] [address] 02/24/2023 08:28:05 02/24/2023 10:01:39 Pain in left foot [id number] 90354 M79.672 [id number] Ran Carney MD [facility] [address] [place] [address] 03/03/2023 08:28:43 03/03/2023 09:08:55 Pain in left foot 1205772474 29346 M79.672 [id number] ANA Lua [facility] [address] [place] [address] 2023 08:45:18 2023 09:31:50 Pain in left foot 9208218790 10051 M79.672 [id number] ANA Lua [facility] [address] [place] [address] 04/02/2023 08:46:25 04/02/2023 09:14:02 Pain in left foot 8856054020 94713 M79.672 [id number] Ran Carney MD [facility] [address] [place] [address] 04/21/2023 08:32:44 04/23/2023 14:32:27 Closed fracture of metatarsal bone 84901015 S92.315D [id number] ANA uLa [facility] [address] [place] [address] 05/14/2023 08:47:32 05/14/2023 10:06:58 Closed fracture of metatarsal bone 35114227 S92.315D [id number] Ran Carney MD [facility] [address] [place] [address] 06/04/2023 08:42:16 06/04/2023 12:28:24 Closed fracture of metatarsal bone 53090776 S92.315D [id number] ANA uLa [facility] [address] [place] [address] 06/23/2023 08:24:05 06/23/2023 09:07:56 Osteoarthritis of right knee joint 0783608288 64526 M17.11 [id number] Ran Carney MD [facility] [address] [place] [address] 07/02/2023 08:48:50 07/05/2023 15:12:23 Closed fracture of metatarsal bone 56079988 S92.315D [id number] ANA Wilson [facility] [address] [place] [address] 07/19/2023 10:26:00 07/19/2023 11:22:00 Adult health examination 111319093 Z00.00 mawe completed /routine f/u completed Screening for disorder 153107690 Z13.9 Hypothyroidism 97372854 E03.9 due for TFTs. not on supplement therapy. Hyperlipidemia 57409090 E78.5 on statin therapy, due for fasting lipids Impaired g lucose tolerance 3245163 R73.03 a1c due w/IGT hx Long-term drug therapy 829061814 Z79.899 all routine bmp, lft and CBC labs due History of polyp of colon 524418410 Z86.010 Still due for 1 year f/u colonoscop y screening that is past due. ordered again Screening mammography 24 418353 Z12.31 mammogram due in jul. Smoker 67244908 F17.200 LDCT scan ordered Osteoporosis 00163230 M8 1.0 UTD on dexa 2022 Vitamin D deficiency 347 08709 E55.9 refill vitamin D that was very low on ortho screening. Postmenopa usal bleeding 22873757 N95.0 refer to gyne promptly as she had occult PMB. Acute dermatitis 5464318 6 L30.9 Rx for steroid cream, prednisone taper, antifungal cream and doxy 100mg bid course to treat different derm rashes and lesions present on exam today. [id number] Ran Carney MD [facility] [address] [place] [address] 07/30/2023 08:47:25 07/30/2023 09:53:07 Closed fracture of metatarsal bone 44715101 S92.315D [id number] Ran Carney MD [facility] [address] [place] [address] 08/27/2023 08:52:42 09/06/2023 16:04:53 Closed fracture of metatarsal bone 61941780 S92.315D [id number] ANA Wilson [facility] [place] [facility] [address] [place] [address] 09/02/2023 11:22:54 09/02/2023 12:02:11 Ground glass opacity 0790100600 R91.8 refer to Pulmonary for f/u on ground glass opacity on LDCT Steatosis of liver 55989 1007 K76.0 f/u LFT panel ordered to evaluate for any improvemen t in LFT with dietary changes. AST was 60 on jul labs. [id number] Ran Carney MD [facility] [place] [facility] [address] [place] [address] 01/03/2024 14:15:36 01/03/2024 17:01:29 Closed fracture of metatarsal bone 54863584 S92.315D Health Concerns Section Related Observation LastModified by Organization Detai ls LastModified Time None Recorded Concern Status LastModified by Organization Details LastModified Time None Recorded Advance Directives Directive Y: Payers Encounter Date Sequence Insurance Name Policy Number Policy Thomas Covered Member ID Thomas Member ID Guarantor Name 07/19/2023 1 [facility] (MEDICARE REPLACEMENT/ ADVANTAGE - HMO) [id number] Yajaira Salguerorendt [id number] Yajaira Marnie Solo 07/30/2023 [employer] Yajaira Cabanchapincito Salguerorenfrancesca 08/27/2023 [employer] Yajaira Cab[place]ap[place]ito Salguerorendt 09/02/2023 1 [facility] (MEDICARE REPLACEMENT/ ADVANTAGE - HMO) [id number] Yajaira Coppola Behrendt [id number] Yajaira Minafrancesca 01/03/2024 [employer] [facility] Yajaira Solo Notes Date Note [...] in your bucket for review. ANA Wilson [address] [place] [address], [place], [address], [facility] [employer] 07/20/2023 14:20:32 08/27/20 text/htm l patient returns. [...] situation. Ran Carney MD [address], [place] [address], [place], [address], [facility] 09/06/2023 15:42:37 09/02/20 23 text/htm l Generic [...] is recommended on that. ANA Wilson [address], [place] [address], [place], [address], [facility] 09/22/2023 23:02:08 01/03/20 24 text/htm l patient [...] alignment. Ran Carney MD [address], [place] [address], [place], [address], [facility] 01/03/2024 16:56:42 OBGyn Episode No OBEpisode recorded.
--- OUTSIDE RECORDS SUMMARY | 2025-02-14 08:28 | XMS_ITS | CONTINUITY OF CARE DOCUMENT ---
Author Name john swapnildarrin Address Unknown Organization [facility] Address [address] [place] [address] Phone [phone] Care Team Providers Care Cake Inspector Name Role Phone Nora WHEELER, Gutierrez Unavailable DEYTO PA-C, DERREK Unavailable DEYTO PA-C, DERREK Unavailable [phone] PROBLEMS Condition Status Date Provider Notes Pre-procedural laboratory examination active Marco A Velasco RN Syncope active Joaquin Reynolds Dyspnea on exertion completed - Caesar Castro MD Cardiomyopathy;no cad by cath completed 20 09/05/18 - Caesar Castro MD lowest ef 40 COPD active Caesar Castro MD Aortic atherosclerosis completed 4 - Gabriel Mesa Abdominal bloating completed - Caesar Castro MD PVC's active Caesar Castro MD Sustained ventricular tachycardia active Joaquin Reyonlds CAD, calcium score 130 in 2020 active Gabriel Mesa Chest pain completed - Caesar Castro MD Atrial flutter;ablatted active Joaquin Reynolds Diastolic dysfunction active Caesar Castro MD lowest 40 Goiter;nml tsh active Caesar Castro MD Dyspnea on exertion active Wilmer Monet Lower extremity edema active Wilmer Ahmedzai Leg pain, bilateral active Wilmer Monet Chest pain-type to be determined active Lakesha Garcia [employer] Carotid bruits, bilateral active Miltonlurdessonali Reynolds Diverticulosis, colon active Caesar Castro MD Venous stenoisis active Caesar Castro MD BACK PAIN;CHRONIC active Caesar Castro MD Vitamin D deficiency- on meds completed 14/07/14 - Caesar Castro MD Exposure to SARS-associated coronavirus;neg igg active Caesar Castro MD Preoperative cardiovascular completed 2017 - Caesar Castro MD SEIZURE disorder active Caesar Castro MD Screening completed - Gabriel Mesa Microvascular angina active Caesar Jansen IRON DEFICIENCY active Caesar Castro MD S/P 1jiajie (MRI Safe) REVEAL/LinQ completed - Caesar Castro MD RF ablation for SVT/AF;nml tsh active Caesar Castro MD Groin pain, right completed - Caesar Castro MD Pulmonary hypertension, secondary completed - Caesar Castro MD Vitamin D deficiency active Caesar Jansen ISCHEMIA; completed - Caesar Castro MD nml cor SLEEP APNEA; active Caesar Castro MD Edema;oconnell thurnre? completed - Caesar Castro MD Obese active Caesar Castro MD Hypercholesterolemia active Charissa mcraeer HTN essential;neg dupelx active Caesar crowe MD FAMILY HISTORY OF HEART DISEASE active Caesar Castro MD Diabetes mellitus, borderline active Caesar Castro MD Tobacco dependence, continuous active Caesar Castro MD ENCOUNTERS Date Type Provider Location Encounter Diag nosis - In-person encounter Office Visit Gutierrez Melendez MD [facility] - In-person encounter Office Visit Gutierrez Melendez MD [facility] Leg pain, bilateralLower extremity edemaDyspnea on exertion - In-person encounter Office Visit Gutierrez Melendez MD [facility] Chest pain-type to be determined - In-person encounter Office Visit Gutierrez Melendez MD [facility] Atrial flutter;ablatted - In-person encounter Office Visit Gutierrez Melendez MD [facility] Sustained ventricular tachycardiaCarotid bruits, bilateral - In-person encounter Office Visit Buddy Galindo MD [facility] Aortic atherosclerosisScreeningCAD, calcium score 130 in 2019 - In-person encounter Office Visit Caesar Castro MD [facility] Edema;oconnell thurnre?S/P Medtronic (MRI Safe) REVEAL/LinQAtrial flutter;ablattedVitamin D deficiency- on medsGoiter;nml tshBACK PAIN;CHRONICVenous stenoisisDiverticulosis, colon - In-person encounter Office Visit Caesar Castro MD [facility] SyncopeCardiomyopathy;no cad by cathPulmonary hypertension, secondaryChest painPreoperative cardiovascularExposure to SARS-associated coronavirus;neg iggDiastolic dysfunction - In-person encounter Office Visit Gutierrez Melendez MD [facility] Atrial flutter;ablatted - In-person encounter Office Visit Gutierrez Melendez MD [facility] - In-person encounter Office Visit Caesar Castro MD [facility] PVC'sCAD, calcium score 130 in 2019 - In-person encounter Office Visit Caesar Castro MD [facility] Tobacco dependence, continuousISCHEMIA;Cardiomyop athy;no cad by cathRF ablation for SVT/AF;nml tshAbdominal bloatingSEIZURE disorder - In-person encounter Office Visit Caesar Castro MD [facility] Screening - In-person encounter Office Visit Buddy Galindo MD [facility] - In-person encounter Office Visit Caesar Castro MD [facility] COPDIRON DEFICIENCYMicrovascular angina - In-person encounter Office Visit Gloria Gonzales MD [facility] - In-person encounter Office Visit Caesar Castro MD [facility] Groin pain, right - In-person encounter Office Visit Caesar Castro MD [facility] Dyspnea on exertion - In-person encounter Office Visit Caesar Castro MD [facility] Oncology HTN essential;neg dupelxEdema;oconnell thurnre?ISCHEMIA;Vitamin D deficiencyCardiomyopathy;no cad by cath - In-person encounter Office Visit Caesar Castro MD [facility] - In-person encounter Office Visit Caesar Castro MD [facility] Tobacco dependence, continuousDiabetes mellitus, borderlineFAMILY HISTORY OF HEART DISEASEHTN essential;neg dupelxHypercholesterolemiaObe seEdema;oconnell thurnre?SLEEP APNEA; VITAL SIGNS Date Observation Value Provider Body Mass Index (Ratio) 30.45 kg/m2 Wilmer Monet blood pressure, diastolic 65 mm[Hg] Pr lulú Weld blood pressure, systolic 131 mm[Hg] [facility] manohar Vaughan oxygen saturation, oximetry 99 % Yessi Vaughan pulse rate 73 /min Yessi jansen blood pressure, cuff size large Nathalie chino Vaughan respiratory rate E&M 16 /min Rosalba Vaughan weight E&M 183 [lb_av] Yessi Hernandez jansen height E&M 65 [in_i] Yessi gN d blood pressure, cuff size regular Ke [...] [lb_av] Trinity chang height E&M 65 [in_i] rTinity chang Body Mass Index (Ratio) 33.61 kg/m2 [...] [in_i] Chelsea Ivette pulse rate #2 [address] [place] [facility] blood pressure, ramírez tolic, second observation 86 mm[Hg] Zoraida Tebid blood pressure, syst olic, second observation 145 mm[Hg] Zoraida Tebid oxygen saturation, oximetry 98 % [facility] /min [place] blood pressure, diastolic 86 mm[Hg] Vi ctoria Tebid blood pressure, systolic 145 mm[Hg] Randall jose Tebid pulse rate #2 75 [facility] blood pressure, ramírez tolic, second observation 80 mm[Hg] [facility], syst olic, second observation 136 mm[Hg] [facility], oximetry 98 % [facility] pulse rate 75 /min [facility] blood [facility], diastolic 80 mm[Hg] Vi ctoria Tebid blood pressure, systolic 136 mm[Hg] Randall jose Tebid pulse rate #2 80 [facility] blood pressure, ramírez tolic, second observation 79 mm[Hg] [facility], syst olic, second observation 141 mm[Hg] [facility], oximetry 98 % [facility] pulse rate 80 /min [facility] blood pressure, diastolic 79 mm[Hg] Vi ctoria Tebid blood pressure, systolic 141 mm[Hg] Randall jose Tebid pulse rate #2 68 [facility] blood pressure, ramírez tolic, second observation 78 mm[Hg] [facility] blood [facility], syst olic, second observation 129 mm[Hg] [facility], oximetry 98 % [facility] pulse rate 68 /min [facility] blood pressure, diastolic 78 mm[Hg] Vi ctoria Tebid blood pressure, systolic 129 mm[Hg] Randall jose Tebid pulse rate #2 85 [facility] blood [facility], ramírez tolic, second observation 88 mm[Hg] [facility] blood [facility], syst olic, second observation 123 mm[Hg] [facility], oximetry 98 % [facility] pulse rate 85 /min [facility] blood pressure, diastolic 88 mm[Hg] Vi ctoria Tebid blood pressure, systolic 123 mm[Hg] Randall jose Tebid pulse rate #2 69 [facility] blood pressure, ramírez tolic, second observation 86 mm[Hg] [facility] blood pressure, syst olic, second observation 124 mm[Hg] [facility] oxygen saturation, oximetry 98 % [facility] pulse rate 69 /min [facility] blood pressure, diastolic 86 mm[Hg] Vi [facility] Tebid blood pressure, systolic 124 mm[Hg] Randall jose Tebid pulse rate #2 75 [facility] blood pressure, ramírez tolic, second observation 79 mm[Hg] [facility] blood pressure, syst olic, second observation 129 mm[Hg] [facility] oxygen saturation, oximetry 98 % [facility] pulse rate 75 /min [facility] blood pressure, diastolic 79 mm[Hg] Vi ctoria Tebid blood pressure, systolic 129 mm[Hg] Randall mendezia Tebid pulse rate #2 76 [facility] blood pressure, ramírez tolic, second observation 85 mm[Hg] [facility] blood [facility], syst olic, second observation 122 mm[Hg] [facility] oxygen saturation, oximetry 98 % [facility] pulse rate 76 /min [facility] blood pressure, diastolic 85 mm[Hg] Vi [facility] Tebid blood pressure, systolic 122 mm[Hg] [facility] [address] [place] blood pressure, ramírez tolic, second observation 76 mm[Hg] [facility] blood pressure, syst olic, second observation 113 mm[Hg] [facility] oxygen saturation, oximetry 98 % [facility] pulse rate 75 /min [facility] blood pressure, diastolic 76 mm[Hg] Vi [facility] Ted blood pressure, systolic 113 mm[Hg] [facility]2 77 [facility] blood pressure, ramírez tolic, second observation 86 mm[Hg] [facility] blood pressure, syst olic, second observation 139 mm[Hg] [facility] oxygen saturation, oximetry 98 % [facility] pulse rate 77 /min [facility] blood pressure, diastolic 86 mm[Hg] [facility], [facility] 139 mm[Hg] [facility]2 77 [facility] blood pressure, ramírez tolic, second observation 82 mm[Hg] [facility] blood pressure, syst olic, second observation 140 mm[Hg] [facility], oximetry 98 % [facility] pulse rate 77 /min [facility] blood pressure, diastolic 82 mm[Hg] [facility], [facility] 140 mm[Hg] Randall jose bid pulse rate #2 76 [facility] blood pressure, ramírez tolic, second observation 82 mm[Hg] [facility] blood pressure, syst olic, second observation 138 mm[Hg] [facility] oxygen saturation, oximetry 98 % Zoraida Tebid pulse rate 76 /min [place] T[facility] blood pressure, diastolic 82 mm[Hg] Vi ctoria Tebid blood pressure, systolic 138 mm[Hg] Randall jose Tebid pulse rate #2 71 [facility] blood [facility], ramírez tolic, second observation 84 mm[Hg] Zoraida Tebid blood pressure, syst olic, second observation 136 mm[Hg] [facility], oximetry 98 % [facility] pulse rate 71 /min [place] Tebid blood pressure, diastolic 84 mm[Hg] Vi vtoria Tebid blood pressure, systolic 136 mm[Hg] Randall jose Tebid pulse rate #2 73 [facility] blood [facility], ramírez tolic, second observation 81 mm[Hg] [facility] blood [facility], syst olic, second observation 135 mm[Hg] [facility], oximetry 98 % [facility] pulse rate 73 /min [place] [facility] blood pressure, diastolic 81 mm[Hg] Vi [facility] Tebid blood pressure, systolic 135 mm[Hg] Randall mendezia Tebid pulse rate #2 74 [place] Tebid blood pressure, ramírez tolic, second observation 80 mm[Hg] [place] [facility] blood pressure, syst olic, second observation 151 mm[Hg] Zoraida Tebid oxygen saturation, oximetry 98 % [facility] pulse rate 74 /min [place] [facility] blood pressure, diastolic 80 mm[Hg] Vi vtoria Tebid blood pressure, systolic 151 mm[Hg] Radnall jose Tebid pulse rate #2 78 [facility] blood [facility], ramírez tolic, second observation 76 mm[Hg] [place] Tebid blood pressure, syst olic, second observation 142 mm[Hg] [facility], oximetry 98 % Zoraida d pulse rate 78 /min [place] d blood pressure, diastolic 76 mm[Hg] Vi ctoria Tebid blood pressure, systolic 142 mm[Hg] Randall jose Tebid pulse rate #2 67 [facility] blood pressure, ramírez tolic, second observation 82 mm[Hg] [facility] blood [facility], syst olic, second observation 136 mm[Hg] [facility] oxygen [facility], oximetry 98 % [place] pulse rate 67 /min [place] blood pressure, diastolic 82 mm[Hg] Vi ctoria Tebid blood pressure, systolic 136 mm[Hg] Randall jose Tebid pulse rate #2 71 [place] blood pressure, ramírez tolic, second observation 88 mm[Hg] [facility] blood [facility], syst olic, second observation 132 mm[Hg] Zoraida d oxygen saturation, oximetry 98 % [place] pulse rate 71 /min [place] blood pressure, diastolic 88 mm[Hg] Vi ctoria Tebid blood pressure, systolic 132 mm[Hg] Randall jose Tebid pulse rate #2 70 [place] blood pressure, ramírez tolic, second observation 86 mm[Hg] [facility] blood [facility], syst olic, second observation 136 mm[Hg] Zoraida d oxygen saturation, oximetry 98 % [place] pulse rate 70 /min [facility] blood pressure, diastolic 86 mm[Hg] Vi ctoria Tebid blood pressure, systolic 136 mm[Hg] Randall jose Tebid Body Mass Index (Ratio) 32.28 kg/m2 Dieter Castro MD pulse rate #2 75 [place] [facility] blood pressure, ramírez tolic, second observation 78 mm[Hg] [facility] blood pressure, syst olic, second observation 136 mm[Hg] [facility] oxygen saturation, oximetry 98 % [facility] pulse rate 75 /min [facility] blood pressure, diastolic 78 mm[Hg] Vi [facility] blood pressure, systolic 136 mm[Hg] Randall jose blood pressure, cuff size regular Ke rri Ericclaritaieshaohiohealth grady memorial hospitalmartina blood pressure, diastolic 92 mm[Hg] Ke rri [facility] blood pressure, systolic 145 mm[Hg] Curtis elizabeth Rocheohiohealth grad[facility] memorial hospitalmartina oxygen saturation, oximetry 98 % Charissa Kashifnorth country hospitalmartina respiratory rate E&M 18 /min Charissa G nirmalnorth country hospitalmartina pulse rate 74 /min Charissa Rochemoonmere [place] weight E&M 194 [lb_av] Charissa Melchormoone [facility] height E&M 65 [in_i] Charissa Melchormere [facility] pulse rate #2 67 Zora[place] blood pressure, ramírez tolic, second observation 91 mm[Hg] [facility] blood pressure, syst olic, second observation 140 mm[Hg] [facility] oxygen saturation, oximetry 98 % [facility] pulse rate 67 /min [facility] blood pressure, diastolic 91 mm[Hg] Vi ctoria d blood pressure, systolic 140 mm[Hg] Randall jose d pulse rate #2 76 [facility] blood pressure, ramírez tolic, second observation 87 mm[Hg] [facility] blood pressure, syst olic, second observation 132 mm[Hg] [facility], oximetry 98 % [facility] pulse rate 76 /min [facility] blood pressure, diastolic 87 mm[Hg] Vi ctoria Tebid blood pressure, systolic 132 mm[Hg] Randall jose Tebid pulse rate #2 72 [facility] blood pressure, ramírez tolic, second observation 104 mm[Hg] [facility] blood pressure, syst olic, second observation 164 mm[Hg] [facility] oxygen [facility], oximetry 98 % [facility] pulse rate 72 /min [facility] blood [facility], diastolic 104 mm[Hg] Vi ctoria Tebid blood pressure, systolic 164 mm[Hg] Randall jose Tebid pulse rate #2 75 [facility], ramírez tolic, second observation 95 mm[Hg] [facility] blood [facility], syst olic, second observation 151 mm[Hg] [facility] oxygen saturation, oximetry 98 % [facility] pulse rate 75 /min [facility] blood pressure, diastolic 95 mm[Hg] Vi ctoria Tebid blood pressure, systolic 151 mm[Hg] Randall jose Tebid pulse rate #2 82 [facility] blood pressure, ramírez tolic, second observation 90 mm[Hg] [facility] blood pressure, syst olic, second observation 142 mm[Hg] [facility] oxygen [facility], oximetry 98 % [facility] pulse rate 82 /min [facility] blood pressure, diastolic 90 mm[Hg] Vi ctoria Tebid blood pressure, systolic 142 mm[Hg] Randall jose Tebid pulse rate #2 77 [facility] blood pressure, ramírez tolic, second observation 85 mm[Hg] [facility] blood pressure, syst olic, second observation 145 mm[Hg] [facility] oxygen saturation, oximetry 98 % Zoraida pulse rate 77 /min [place] blood pressure, diastolic 85 mm[Hg] Vi ctoria Tebid blood pressure, systolic 145 mm[Hg] Randall jose Tebid pulse rate #2 76 [facility] blood pressure, ramírez tolic, second observation 80 mm[Hg] [facility] blood pressure, syst olic, second observation 160 mm[Hg] [facility] oxygen saturation, oximetry 98 % [facility] pulse rate 76 /min [facility] blood pressure, diastolic 80 mm[Hg] Vi ctoria Tebid blood pressure, systolic 160 mm[Hg] Randall jose Tebid pulse rate #2 69 [place] blood pressure, ramírez tolic, second observation 94 mm[Hg] [facility] blood [facility], syst olic, second observation 115 mm[Hg] [facility] oxygen saturation, oximetry 98 % [place] pulse rate 69 /min [facility] blood pressure, diastolic 94 mm[Hg] Vi ctoria Tebid blood pressure, systolic 115 mm[Hg] Randall jose Tebid pulse rate #2 74 [facility] blood pressure, ramírez tolic, second observation 92 mm[Hg] [facility] blood pressure, syst olic, second observation 144 mm[Hg] [facility] oxygen [facility], oximetry 98 % [facility] pulse rate 74 /min [facility] blood pressure, diastolic 92 mm[Hg] Vi ctoria Tebid blood pressure, systolic 144 mm[Hg] Randall jose Tebid pulse rate #2 73 [facility] blood pressure, ramírez tolic, second observation 84 mm[Hg] [facility] blood pressure, syst olic, second observation 137 mm[Hg] [facility] oxygen saturation, oximetry 98 % [facility] pulse rate 73 /min [facility] blood pressure, diastolic 84 mm[Hg] Vi lauren [facility] blood pressure, systolic 137 mm[Hg] Randall garcia [facility] Body Mass Index (Ratio) 32.45 kg/m2 Kristine [...] nguyen Henry blood pressure, systolic 120 mm[Hg] Bandy nda Henry pulse rate 87 /min Ailyn [...] [employer] 3.5-5.2 sodium, serum 144 mmol/L [facility] [phone]/04 /22 urea nitrogen/creatinine ratio, serum 14 [employer] [...] Not Estab. platelet count 248 X10E3/UL [facility] [phone]/04 /22 red blood cell distribution width 13.2 [...] Not Estab. platelet count 240 X10E3/UL [facility] [phone]/01 /23 red blood cell distribution width 12.9 [...] [facility] 3.5-5.2 sodium, serum 144 mmol/L [facility] [phone]/01 /23 urea nitrogen/creatinine ratio, serum 9 [employer] [...] [facility] 3.5-5.2 sodium, serum 140 mmol/L [facility] [phone]/01 /22 urea nitrogen/creatinine ratio, serum 9 [employer] [...] iron binding capacity, unsaturated 260 ug/dL [facility] [phone]/08 /07 iron binding capacity, total 329 ug/dL [facility] [phone]/08 /07 free thyroxine index 2.7 [facility] 1.2-4.9 [...] [employer] 0-149 cholesterol, serum 198 mg/dL [facility] [phone]/08 /07 calcium, serum 9.7 mg/dL [facility] 8.7-10.3 [...] Not Estab. platelet count 244 X10E3/UL [facility] [phone]/08 /07 red blood cell distribution width 13.1 [...] [employer] 0-149 cholesterol, serum 179 mg/dL [facility] [phone]/12 /10 coagulation managed by Marco A Velasco RN international normalized ratio (INR) 1.2 Trinityjonnathan Hazel Normal prothrombin time (patient) 14.8 s Trinity Hazel microalbumin/creati nine ratio, urine <6.0 mg/g [...] [facility] 3.5-5.2 sodium, serum 143 mmol/L [facility] [phone]/12 /08 urea nitrogen/creatinine ratio, serum 15 [facility] [...] Not Estab. platelet count 248 X10E3/UL [facility] [phone]/12 /08 red blood cell distribution width 13.3 [...] (low-density lipoprotein/high-de nsity lipoprotein) ratio 1.4 RATIO [facility] - lipoprotein, beta, serum, point, quantitative, calculated 95.4 (?) [facility] 0.0 - 100.0 HDL cholesterol, serum 69.0 mg/dL [facility] 45.0 - 65.0 High cholesterol, serum 203.0 mg/dL [facility] 0.0 - 200.0 High triglyceride, serum, fasting 193.0 mg/dL [facility] 0.0 - 150.0 High lipase, serum 21.0 U/L [facility] 13.0 - 60.0 anion gap, serum 13.4 [facility] albumin/globulin ratio, serum 1.8 g/dL [facility] 1.1 - 2.5 globulin, serum 2.5 [facility] 2.3 - 3.8 urea nitrogen/creatinine ratio, serum 12.5 [facility] - Estimated Glomerular Filtration Rate (calc) 77.2 [...] - 1.2 urea nitrogen, blood 10.0 mg/dL [facility] 8.0 - 23.0 blood glucose, random 72.0 mg/[facility] 74.[facility] - 99.0 Low amylase, serum 48.0 1/L [facility] 28.0 - 100.0 red blood cell distribution width, size density 43.4 fL [facility] - immature granulocytes, percentage of total cells, blood 0.4 % [facility] - nucleated red blood cells as percent of blood leukocytes 0.0 % [facility] - red blood cell (erythrocyte) count, per high power field 0.0 10*3/UL [facility] - eosinophils as percent of blood leukocytes 0.7 % [facility] - neutrophils as percent of blood leukocytes 60.3 % [facility] - Absolute Neutrophils 5.9 CELLS/UL [facility] 1.5 - 7.8 basophils as percent of blood leukocytes 0.5 % [facility] - Absolute Basophils 0.1 CELLS/UL [facility] 0.0 - 0.2 monocytes as percent of blood leukocytes 10.9 % [facility] - Absolute Monocytes 1.1 CELLS/UL [facility] 0.2 - 1.0 High lymphocytes as percent of blood leukocytes 27.2 % [facility] Lymphocytes 2.7 CELLS/UL [facility] 0.9 - 3.9 mean platelet volume 11.8 (?) [facility] - platelet count 208.0 THOUSAND/UL [facility] 100.0 - 400.0 mean corpuscular hemoglobin concentration, RBC 32.2 G/DL [facility] 31.0 - 38.0 mean corpuscular hemoglobin, RBC 29.4 pg [facility] 25.0 - 35.0 mean corpuscular volume, RBC 91.[address] [facility] 75.0 - 100.0 hematocrit, blood 51.0 % [facility] 35.0 - 55.0 hemoglobin, blood 16.4 g/dL [facility] 11.5 - 16.5 erythrocyte count, whole blood 5.6 MILLION/UL [facility] 3.5 - 5.5 High hemoglobin A1C, blood, as % of total hemoglobin 6.1 % [facility] 4.0 - 5.6 High folate, serum 6.0 NG/MLM [facility] 5.6 - 45.8 ferritin, serum 118.9 ng/mL [facility] 13.0 - 150.0 iron, serum 73.0 ug/dL [facility] 25.0 - 156.0 iron saturation percent, serum 20.8 % [facility] 20.0 - 50.0 iron binding capacity, total 351.4 ug/dL [facility] 250.0 - 450.0 rapid plasma reagin antibody, serum NON-REACTIV E [facility] NON-REACTIVE very low density lipoproteins 35.6 mg/dL [facility] 5.0 - 40.0 LDL/HDL (low-density lipoprotein/high-de [...] - 150.0 urea nitrogen/creatinine ratio, serum 13.8 [facility] [facility] - Estimated Glomerular Filtration Rate (calc) 77.2 [...] cell distribution width, size density 49.1 fL [facility] immature granulocytes, percentage of total cells, blood 0.4 % [facility] - nucleated red blood cells as percent of blood leukocytes 0.0 % [facility] - red blood cell (erythrocyte) count, per high power field 0.0 10*3/UL [facility] - eosinophils as percent of blood leukocytes 0.7 % [facility] - neutrophils as percent of blood leukocytes [...] 1 tablet by mouth once daily 11/11 [facility] PA Specialist valsartan 40 mg tablet active [...] times daily x 10 days 07/16 - Tirnity Hazel CEPHALEXIN 500 MG ORAL TABLET completed [...] a week 05/31 - 11/11 Lakesha Garcia [employer] MAGNESIUM OXIDE 400 MG ORAL TABLET completed ONE TAB TWICE A DAY 12/15 - 05/30 Trinity Hazel COUMADIN 5 MG ORAL TABLET completed Take 1 tab daily with evening meal. Start first dose on 201711/09 - 05/30 Trinity Hazel ASPIRIN ADULT LOW DOSE 81 MG ORAL TABLET DELAYED RELEASE completed One Tab By Mouth Daily 10/30 - 05/30 Tirnity Hazel COZAAR 50 MG ORAL TABLET completed [...] 05/28 - 05/27 Charissa Blanc VITAMIN D3 78380 UNIT ORAL CAPSULE completed once a week [...] Marincelinezavianney smoking, date started 42 Kehinde Garcia [employer] smoking/tobacco cess ation, patient education and counseling yes Adriana Thomas smoking history, tot al pack/day 0.5-1 Lkaesha Hodgsonangela [employer] cigarette use yes Adriana Graymere sewellon smoking [...] E&M revi ewed - no changes required Gabrile Mesa smoking/tobacco cess ation, patient education and [...] history, tot al pack/day 3 a day rTinity Hazel cigarette use yes Trinity Fengarina wu [...] status Current every day smoker Xi Theron ePña smoking/tobacco cess ation, patient education and counseling yes Caesar Castro MD social history E&M S moking History: Garrison ayala currently smokes every day. Caesar Castro MD smoking history, tot al pack/day 1 cig per week Ailyn Henry cigarette use yes Ailynnguyen Jeffreyon smoking status Current every day smoker Guillermo delcid Henry social history reviewed E&M revi ewed - no changes required Ailynnguyen Figueroa smoking/tobacco cess ation, patient education and [...] Date Observation Value Provider energy level yes [place] [facility] energy level yes [place] Tebid energy level yes [place] Tebid energy level yes [place] Tebid energy level yes [place] Tebid energy level yes [place] Teb[place] energy level yes [place] energy level yes [place] energy level yes [place] energy level yes [place] energy level yes [place] energy level yes [place] energy level yes [place] energy level yes [place] energy level yes [place] energy level yes [place] energy level yes [place] energy level yes [place] energy level yes [place] energy level yes [place] energy level yes [place] energy level yes [place] energy level yes [place] energy level yes [place] energy level yes [place] Tebid energy level yes [place] Tebid energy level yes [place] Tebid energy level yes Zoraida Tebid energy level yes Zoraida Tebid energy level no Zoraida Tebid FAMILY HISTORY Family Member Condition Father Family History of Di abetes: Mother Family History of Di abetes: INSURANCE PROVIDERS Payer name Policy type / Coverage type [place] red libertarian ID [employer] MEDICARE [employer]AGE ST 0 003 (HMO POS) Medicare [id number] ADVANCE DIRECTIVES Name Date DISCUSSED - NO DECISION MADE TREATMENT PLAN Date Name Performer [id number],C, B P today: 131/65 P rior BP: 152/86 (03/26/2023) Labs Reviewed: C reat: 0.85 (02/13/2021) C hol: 198 (05/31/2020) HDL: 70 (05/31/2020) Wilmer Wallyalan [id number],S, Wilmer Sandra i [id number],C,C ardiac monitor showed S inus Rhythm with occasional Ventricular ectopics and rare Supraventricular e ctopics. The average heart rate was 70bpm with a maximum rate of 105bpm and a m inimum rate of 61bpm. VE?s were documented as triplets, couplets, bigeminal c ycles, and isolated beats with a burden of 2.26%. Wilmer kurtvianney [id number],C,p ending stress test w ill send in nitro for now as needed [facility] [id number],C,A BI was normal but sensilase showed decreased PVR with normal perfusion pressures b/l, this is c/w venous insufficiency. Wilmer celinei [id number],C,pending stres s nuclear Wilmer celinei [id number],C,W ill check stress nuclear to assess for ischemia and and PFT given her hx of smoking Wilmer kurtvianney [id number],C,p t has chest pain which is new for her and not improving, will check stress nuclear Wilmer Monet [id number],S,w ill check 48 hr holter to assess for arrythmias which may be contributing to her chest discomfort Wilmer Monet [id number],C,s he did suffer injury on leg which may be a contributor but has decreased pulses on left leg, will check TANG and Sensilase to assess arterial flow. Wilmer Monet [id number],C, B P today: 152/86 P rior BP: 127/79 (09/11/2022) Labs Reviewed: C reat: 0.85 (02/13/2021) C hol: 198 (05/31/2020) HDL: 70 (05/31/2020) Wilmer Monet [id number],C,e ncouraged to cut down by half until able to quit. pt verbalizes desire to quit smoking. Lakesha Garcia [employer] [id number],C,? syncope or seizure as in HPI. will plan ILR. o n ashlee Garcia [employer] [id number],C, B P today: 127/79 P rior BP: [...] tablet twice a day Lakesha Garcia NP [id number],C,s ustained VT seen on stress test 2020 [...] will plan for ILR Lakeshaliliana Reiddaniel SINGLETON [id number],C,recent telese ntry as above Lakesha Reiddaniel SINGLETON [id number],C, Pt reports that she a couple of [...] study with Non-inducible VT Lakesha Hodgsonangela SINGLETON [id number],C,p t had telesentry 08/25/22 Sinus Rhythm with [...] as couplets and isolated beats Lakeshajacqueline Garcia [employer] [id number],C, pt states that over the last couple of weeks, she has been experiencing intermittent chest pressure, 6/10, unchanged with inspiration or movement, and not associated with any specific activity. occurs at rest and with exertion. radation to L arm and associated with nausea. will check rtroutine stress test and ECHO Lakesha Garcia [employer] Electrophysiology: B P today: 131/65 P rior [...] verbalizes desire to quit smoking. Lakesha Garcia [employer] Electrophysiology:? syncope or seizure as in HPI. will plan ILR. chino Garcia [employer] Electrophysiology: B P today: 127/79 P rior [...] twice daily Orders: 9 12 Minor 10-19min (CPT-37062) [facility] Follow up : H er updated medication list for this problem includes: Coreg 25 Mg Oral Tablet (Carvedilol) ..... One tab. twice daily Orders: E KG (CPT-09071) M onitor - Telemetry (Mobile Cardiac) (CPT-31068) 9 12 Minor 10-19min (CPT-11197) [facility] Fo llow up : B [...] : O rders: C arotid Duplex Bilateral (CPT-65179) [facility] Electrophysiology Fo llow up : S [...] BPM T otal VE: 5522 -- 5.4% [place] 5 015 Isolated 26 Pairs 1 22 Bigeminal 2 5 Trigeminal T otal SVE: 185 -- 0.1% [place] 1 85 Isolated Her updated medication list for this problem includes: Coreg 25 Mg Oral Tablet (Carvedilol) ..... One tab. twice daily Joaquin Reynolds Electrophysiology Fo llow up : s ustained VT seen on stress test yesterday. Orders: P ARTIAL THROMBOPLASTIN TIME, ACTIVATED (763) P ROTHROMBIN TIME WITH INR (8847) C BC (INCLUDES DIFF/PLT) (6399) B ASIC METABOLIC PANEL W/EGFR (92552) C T Cardiac with contrast (Pre-Ablation) (CPT-24291) A BLATION w/ Anesthesia (*) Stress 11/14/2020: [...] spital Follow up: O rders: E KG (CPT-28203) 9 9214 MOD Complex (CPT-00983) S chedule Followup (*) Her updated medication [...] Arvin Miranda Electrophysiology Ho spital Follow up: 3 1 [...] successfully ablated. Orders: 9 9214 MOD Complex (CPT-66794) S chedule Followup (*) Her updated medication [...] Jean Electrophysiology: O rders: C omplete Echo (CPT-94765) 9 9214 MOD Complex (CPT-01910) S chedule Followup (*) Arvin Jean Electrophysiology: O rders: F VC - 88581 (67209) F RC - 43674 (16796) D LCO - 29571 (06684) 9 9214 MOD Complex (CPT-10266) S chedule Followup (*) Arvin Jean Electrophysiology: [...] Electrophysiology: O rders: 9 9214 MOD Complex (CPT-85654) S chedule Followup (*) Her updated medication [...] stress test. Orders: S TR - Adenosine (CPT-56033) 9 9214 MOD Complex (CPT-51640) S chedule Followup (*) Her updated medication [...] plan for EP study with ablation at [facility] on 10/06/18. Orders: E KG (CPT-35025) ABLATION w/ Anesthesia (*) 9 9214 MOD Complex (CPT-12033) S chedule Followup (*) Her updated medication [...] Cardiology follow up:pft now nor mal Caesar Castro MD Cardiology Follow up :DID NOT TO L QUSIMAI Caesar Castro MD Cardiology Follow up Caesar crowe MD Cardiology Follow up : s [...] breath, fatigue, dizziness, nausea, or diaphoresis) of [place] [employer] Class III (defined as symptoms with everyday living activities, i.e. moderate limitation) or [place] [employer] Society Class IV (defined as inability [...] breath, fatigue, dizziness, nausea, or diaphoresis) of [place] [employer] Class III (defined as symptoms with everyday living activities, i.e. moderate limitation) or [place] [employer] Society Class IV (defined as inability [...] problem includes: Cartia Xt 120 Mg Oral [id number] (Diltiazem hcl coated beads) ..... One a [...] problem includes: Cartia Xt 120 Mg Oral [id number]-[id number] (Diltiazem hcl coated beads) ..... One a [...] problem includes: Cartia Xt 120 Mg Oral Kx15f-lpp (Diltiazem hcl coated beads) ..... One a [...] tab daily Cartia Xt 120 Mg Oral Sf78i-ofw (Diltiazem hcl coated beads) ..... One a [...] tab daily Cartia Xt 120 Mg Oral Rx29i-bzw (Diltiazem hcl coated beads) ..... One a [...] AND CMP NORMAL, BP MEDS RELATEED? [facility] er updated medication list for [...] Name Holter Monitor 48 hr DLCO - 80647 FRC - 18524 FVC - 38687 Stress Regadenoson Arterial Duplex Bi-L ower EX Arterial - SENSILASE Loop Rec Implant - S [facility] CXR- PA/Lat Stress Routine Complete Echo DLCO - 32083 FRC - 71730 FVC - 58031 Carotid Duplex Bilat eral Monitor - Telemetry [...] PANEL Holter Monitor 24 Hr DLCO - 47360 FRC - 98598 FVC - [address] Thyroid Ultrasound Thyroid [...] D, 25-Hydrox y HEMOGLOBIN A1c DLCO - 98542 FRC - 51035 FVC - 20619 Covid Antibody Igg TSH, free T4, total T3 Holter Monitor 24 Hr Vitamin D, 25-Hydrox y HEMOGLOBIN A1c LIPID PANEL PARTIAL THROMBOPLAST IN TIME, ACTIVATED BASIC METABOLIC PANE L W/EGFR CBC (INCLUDES DIFF/P LT) ABLATION w/ Anesthes ia STR - Adenosine Complete Echo DLCO - 86403 FRC - 10385 FVC - 50664 DLCO - 09032 FRC - 02516 FVC - 87606 PROTHROMBIN TIME WIT H INR LIPID PANEL CBC (INCLUDES DIFF/P LT) BASIC METABOLIC PANE L W/EGFR Vitamin D, 25-Hydrox y CT, Coronary Calcium Score Complete Echo Low Dose Lung CT URINALYSIS, RANDOM, MICROALB/CREATININE HEMOGLOBIN A1c LIPID PANEL BASIC METABOLIC PANE L W/EGFR PROBNP, N TERMINAL DLCO - 07645 FRC - 71624 FVC - 18183 Vitamin D, 25-Hydrox y PROBNP, N TERMINAL BASIC METABOLIC PANE L W/EGFR LIPID PANEL URINALYSIS, RANDOM, MICROALB/CREATININE HEMOGLOBIN A1c BASIC METABOLIC PANE L W/EGFR Complete Echo Low Dose Lung CT CBC (INCLUDES DIFF/P LT) HEMOGLOBIN A1c CT Abdomen w/o contr ast LIPASE AMYLASE COMPREHENSIVE METABO LIC PANEL, W/EGFR CT Head w/o contrast LIPID PANEL PROBNP, N TERMINAL DLCO - 45434 FRC - 09598 FVC - 02781 Complete Echo DLCO - 10757 FRC - 21379 FVC - 22616 FOLATE, SERUM ECP - Medicare RPR (MONITOR) W/REFL TITER VITAMIN D, 25-HYDROX Y, LC/MS/MS Complete Echo IRON AND TOTAL IRON BINDING CAPACITY FERRITIN URINALYSIS, COMPLETE W/REFLEX TO CULTURE LIPID PANEL CBC (INCLUDES DIFF/P LT) DLCO - 28303 FRC - 69157 FVC - 41834 X-Ray, Chest, PA & L ateral PARTIAL [...] STR - Nuclear Complete Echo DLCO - 22313 FRC - 44295 FVC - 75248 HISTORY OF PROCEDURES Procedure Date Procedure Name [...] completed FVC / MVV with bronchodilator - 04661 Caesar Castro MD completed BLOOD COUNT HEMOGLOBIN Caesar Castro MD completed FRC - 57220 Caesar Castro MD complet ed SpO2 w/o 6min walk/titration Caesar Castro MD completed DLCO - 47461 Caesar Castro MD comple nedra CT- Coronary [...] completed FVC / MVV with bronchodilator - 15733 Caesar Castro MD completed BLOOD COUNT HEMOGLOBIN Caesar Castro MD completed FRC - 44248 Caesar Castro MD complet ed SpO2 w/o 6min walk/titration Caesar Castro MD completed DLCO - 68693 Caesar Castro MD comple nedra Stress EKG Gloria Gonzales MD complet ed Regadenoson, 4 units Gloria Gonzales MD completed Cardiolite, 2 units Gloria Gonzales MD completed SPECT Images Gloria Gonzales MD [...] completed FVC / MVV with bronchodilator - 05638 Caesar Castro MD completed FRC - 23719 Caesar Castro MD complet ed SpO2 - 42906 Caesar Castro MD comple nedra DLCO - 67642 Caesar Castro MD comple nedra Loop Recorder Interrogation, Remote Caesar Castro MD INTERROGATION EVALUATION REMOTE </30 D ILR SYS completed ICM Interrogation, Remote (Tech) Caesar Castro MD INTERROGATION EVAL REMOTE </30 D TECH REVIEW completed Loop Recorder Interrogation, Remote Ceasar Castro MD INTERROGATION EVALUATION REMOTE </30 D ILR SYS completed ICM Interrogation, Remote (Tech) Caesar Castro MD INTERROGATION EVAL REMOTE </30 D TECH REVIEW completed SNOMED-CT: 492142854531080 Current Medications Documented Caesar Castro MD completed Loop Recorder Interrogation, Remote Caesar Castro MD INTERROGATION EVALUATION REMOTE </30 D ILR SYS completed ICM Interrogation, Remote (Tech) Caesar Castro MD INTERROGATION EVAL REMOTE </30 D TECH REVIEW completed SNOMED-CT: 30371821 Physical Exam, Performed: Pulse Exam of Foot Buddy Galindo MD completed SNOMED-CT: 092030225844282 Current Medications Documented Buddy Galindo MD completed Loop Recorder Interrogation, Remote Caesar Castro MD INTERROGATION EVALUATION REMOTE </30 D ILR SYS completed ICM Interrogation, Remote (Tech) Caesar Castro MD INTERROGATION EVAL REMOTE </30 D TECH REVIEW completed SNOMED-CT: 930573989487221 Current Medications Documented Caesar Castro MD completed Loop Recorder Interrogation, Remote Caesar Castro MD INTERROGATION EVALUATION REMOTE </30 D ILR SYS completed ICM Interrogation, Remote (Tech) Caesar Castro MD INTERROGATION EVAL REMOTE </30 D TECH REVIEW completed EKG Gloria Gonzales MD complet ed SNOMED-CT: 358573946332869 Current Medications Documented Gloria Gonzales MD completed Loop Recorder Interrogation, Remote Caesar Castro MD INTERROGATION EVALUATION REMOTE </30 D ILR SYS completed ICM Interrogation, Remote (Tech) Caesar Castro MD INTERROGATION EVAL REMOTE </30 D TECH REVIEW completed SNOMED-CT: 830143168846557 Current Medications Documented Caesar Castro MD completed SNOMED-CT: 516750352 Smoking Cessation Counseling Caesar Castro MD completed SNOMED-CT: 576956515263698 Current Medications Documented Caesar Castro MD completed SNOMED-CT: 420450254 Smoking Cessation Counseling Caesar Castro MD completed SNOMED-CT: 732695302106960 Current Medications Documented Caesar Castro MD completed BLOOD COUNT HEMOGLOBIN Caesar Castro MD completed FVC - 23233 Caesar Castro MD complet ed FRC - 29078 Caesar Castro MD complet ed DLCO - 59729 Caesar Castro MD comple nedra Stress EKG Aldo Haney MD completed Regadenoson, 4 units Caesar Castro MD completed Cardiolite, 2 units Caesar Castro MD completed SPECT Images Buddy Galindo MD complet ed Event Monitor Caesar Castro MD compl eted Event Monitor Caesar Castro MD compl eted SNOMED-CT: 992218199 Smoking Cessation Counseling Caesar Castro MD completed SNOMED-CT: 756637621426366 Current Medications Documented Caesar Castro MD completed
--- OUTSIDE RECORDS SUMMARY | 2025-02-14 08:28 | XMS_ITS | Clinical Summary ---
Author Organization [facility] Address [address] [place] [address] Care Team Providers Care On Call Pharmacy Technician Name Role Phone Zachary New MD Primary Care Provider [phone] Source Comments [facility],non-owned Affiliates and Associated Physician Practices is amultiple site organization consisting of ambulatory clinics and hospital sitesin [place], [place], [place] and [place]. This disclosure is being madepursuant to the Care Everywhere program and may not contain all information available regarding this patient. Last updated 18.[facility] [employer] Allergies No known active allergies Medications * Be aware that medications may not be up to date on this document. Alwaysverify current medications with the patient. albuterol HFA (VENTOLIN HFA) 108 (90 BASE) MCG/ACT inhaler 09/07/2016 Active dilTIAZem coated beads 24hr (CARTIA XT) 120 MG capsule 10/09/2016 Active lovastatin (MEVACOR) 20 MG tablet 10/09/2016 Active Cholecalciferol (VITAMIN D3) 48312 UNITS capsule 10/09/2016 Activ e omeprazole (PRILOSEC) [...] on file Legal Sex Female 5:46 PM [employer] Gender Identity Not on file Sexual Orientation [...] patient's age to complete this topic Insurance [facility] Care Teams On Call Pharmacy Technician Relationship Specialty Start Date End Date Zachary New MD [address] [place] [address] PCP - General 11/29/12
--- OUTSIDE RECORDS SUMMARY | 2025-02-14 08:28 | XMS_ITS | Clinical Summary ---
Author Organization [facility] Address [address] [place] [address] Phone Care Team Providers Care Statistics Teacher Name Role Phone Nahed Ceballos Primary Care Provider [phone] Allergies No known active allergies Medications lovastatin [...] times daily. 03/08/2019 Active ergocalciferol (VITAMIN D) 35069 UNIT Capsule Take 1 Cap by mouth [...] Insurance MEDICAID [employer] Care Teams Statistics Teacher Relationship Specialty Start Date End Date Nahed Ceballos PA [address] [address] PCP - General Adult Medicine 03/01/19
--- OUTSIDE RECORDS SUMMARY | 2025-02-14 08:29 | XMS_ITS | Data Portability ---
Author Organization [facility] Address [address] [place] [address] Care Team Providers Care Structural Steel Erector Name Role Phone ROSSI NAHED Primary Care Provider LAXMI Deleon Records Coordinator DIEGO HALL Peanut Shaker Assessment Encounter Date Assessment Date Assessment LastModified [...] [email or web address] [facility], [address], [place], [address], 09/25/2024 14:28:18 CBC w/ auto diff 2023 025 [email or web address] [facility], [address], [place], [address], 09/25/2024 14:28:18 hepat ic funct ion panel , serum 2023 025 [email or web address] [facility], [address], [address], [place], [address], 09/25/2024 14:28:18 BMP, serum or plasm a 2023 025 [email or web address], [address], [address], [place], [address], 09/25/2024 14:28:18 TSH + free T4, serum 2023 025 [email or web address], [address], [address], [place], [address], 09/25/2024 14:28:18 lipid panel , serum 2023 025 [email or web address], [address], [address], [place], [address], 09/25/2024 14:28:18 HbA1c (hemo globi n A1c), blood 2023 024 DUC [facility], [address], [address], [place], [address], 09/19/2024 10:35:40 insul in, serum 2023 024 DUC [facility], [address], [address], [place], [address], 09/20/2024 15:25:07 CBC w/ auto diff 2023 024 [email or web address] [facility], [address], [address], [place], [address], 09/20/2024 15:07:48 hepat ic funct ion panel , serum 2023 024 [email or web address] [facility], [address], [address], [place], [address], 09/20/2024 15:07:31 BMP, serum or plasm a 2023 024 [facility], [address], [address], [place], [address], 09/20/2024 15:06:51 TSH + free T4, serum 2023 [facility], [address], [address], [place], [address], 09/20/2024 15:07:18 lipid panel , serum 2023 024 [facility], [address], [address], [place], [address], 09/20/2024 15:08:16 Referral derma tolog ist refer ral 2023 DUC Marrero MD (Dermatology), [address] [facility] [address], [address], [place], [address], 12/19/2024 12:43:33 pain manag ement refer ral - Pleas e call pt to [facility] eb[facility] suggs, Thank you 2018 019 [email or web address] [facility], 1 [facility], [place], [address], 03/22/2019 11:14:25 Procedures colon oscop y proce dure (PROC ) 2023 024 [email or web address] [facility], [address] [place] [address] , [address], [place], [address], 12/18/2024 16:41:18 colon oscop y proce dure (PROC ) 2023 024 [email or web address] Mark Irizarry MD, [address], [address], [place], [address], 11/21/2024 16:04:57 Surgeries None recor ded. Imaging MAMMO , scree regan, digit al, bilat eral 2023 [email or web address] [facility] (Radiology), 1 [facility] [place], [address], 12/18/2024 16:41:00 MRI, brain , w/wo contr ast 2023 024 [facility] (Imaging), [address], [place], [address], 02/14/2025 04:03:50 XR, lumba r spine 2018 019 [facility] (Radiology), [address] [place], [address], 01/12/2019 11:22:18 XR, sacru m + coccy x 2018 019 [facility] (Radiology), [address] [place], [address], 03/28/2019 12:34:03 Medication Orders omepr azole 40 mg capsu le,de layed relea se 2023 024 [facility] [address] [place], [address], 08/22/2024 09:52:16 nysta tin 100,0 00 unit/ gram topic al powde r 2023 024 [facility] [address] [place], [address], 08/22/2024 09:52:13 nysta tin 100,0 00 unit/ gram topic al cream 2023 024 [facility] [address] [place], [address], 08/22/2024 09:52:19 fluco nazol e 100 mg table t 2023 024 [email or web address] [facility] [address], [address] [place], [address], 09/25/2024 14:06:15 metfo rmin 500 mg table t 2023 [facility] [address], [address] [facility], [place], [address], 08/22/2024 09:52:15 lovas tatin 20 mg table t 2023 [facility] [address], [address] [facility], [place], [address], 08/22/2024 09:52:14 cital opram 40 mg table t 2023 [facility] [address] [facility], [place], [address], 08/22/2024 09:52:14 valsa rtan 80 mg table t 2023 [facility] [address], [address] [facility], [place], [address], 08/22/2024 09:52:16 hydro chlor othia zide 12.5 mg table t 2023 [facility] [address] [facility], [place], [address], 08/22/2024 09:52:19 magne sium 400 mg (as magne sium oxide ) capsu le 2018 [email or web address] [facility] [address] [facility], [place], [address], 08/22/2024 09:17:06 Symbi lisseth 160 mcg-4 .5 mcg/a ctuat ion HFA aeros ol inhal er 2018 019 INTERFACE [facility] [address] [facility], [place], [address], 02/06/2019 11:51:06 ProAi r HFA 90 mcg/a ctuat ion aeros ol inhal er 2018 019 [email or web address] [facility] [address], [address] [facility], [place], [address], 02/07/2019 09:41:06 Vitam in D2 1,250 mcg (50,0 00 unit) capsu le 2018 019 [facility] [address], [address] [facility], [place], [address], 08/22/2024 09:17:43 dilti azem 60 mg table t 2018 019 [facility] [address], [address] [facility], [place], [address], 08/22/2024 09:18:17 magne sium 400 mg (as magne sium oxide ) capsu le 2018 019 [facility] [address], [address] [facility], [place], [address], 08/22/2024 09:17:06 Patient TargetsNo targets recorded. Patient Instructions Encounter Date Encounter Id Patient Instructions Last Modified By Organization Details Last Modified Time 02/06/2019 [id number] I have reviewed the provider's note and I agree with the documented assessment and plan. [email or web address] Not available 02/15/2019 01:12:04 Reason for Referral Pain Management Referral for Spinal stenosis of lumbar region Please call pt to schedule appointment, Thank you Referring Physician: Nahed Ceballos, Internal Medicine, Encounter Date: 02/06/2019 Natural Resource Specialist Referral for C andidiasis of skin Referring Physician: Brenda Bowie, Internal Medicine, Encounter Date: 08/22/2024 Pharmacist Technician Referral for Pain in left foot Referring Physician: Brenda Bowie, Internal Medicine, Encounter Date: 01/25/2025 Results Created Date Observation Date Name Description Value Unit Range Abnormal Flag Note LastModifiedBy Organization Detail LastModifiedTime 01/12/20 19 01/11/2019 MRI, lumba r spine , w/o contr ast No observ ation record ed. [facility] [address] [place], [address], 01/12/2019 11:22:18 03/24/20 19 03/24/2019 sacro iliac joint injec tion (PROC ) No observ ation record ed. [email or web address] [address] [place], [address], 03/28/2019 12:34:03 06/24/20 20 06/24/2020 imagi ng/di agnos tic resul t No observ ation record ed. [email or web address] [facility] [address], [place], [address], 06/25/2020 11:41:50 06/24/20 20 06/24/2020 imagi ng/di agnos tic resul t No observ ation record ed. [email or web address] [facility] [address], [place], [address], 06/25/2020 11:41:34 07/05/20 20 07/05/2020 elect rocar constantiengr am No observ ation record ed. [email or web address] [facility] [address], [place], [address], 07/10/2020 10:27:04 07/08/20 20 07/08/2020 elect rocar diogr am No observ ation record ed. [email or web address] [facility] [address], [place], [address], 07/10/2020 10:26:53 08/28/20 20 06/08/2020 imagi ng/di agnos tic resul t No observ ation record ed. [email or web address] Not Available 2019 09:13:19 11/14/19 21 11/14/2020 exerc ise stres s test No observ ation record ed. [email or web address] [facility] [address], [place], [address], 11/18/2020 15:27:08 11/15/19 21 11/15/2020 US, carot id arter y No observ ation record ed. [email or web address] [facility] [address], [place], [address], 11/18/2020 15:28:06 11/26/19 21 11/25/2020 imagi ng/di agnos tic resul t No observ ation record ed. [email or web address] [address], [place], [address], 11/26/2020 12:25:26 03/14/20 21 02/21/2021 cardi ac telem etry No observ ation record ed. [address] [facility] [address], [place], [address], 03/17/2021 11:35:47 08/11/20 22 08/11/2022 imagi ng/di agnos tic resul t No observ ation record ed. [facility] [address], [place], [address], 10/14/2022 16:10:57 09/23/20 22 09/15/2022 imagi ng/di agnos tic resul t No observ ation record ed. [facility] [address], [place], [address], 10/14/2022 16:11:17 09/28/20 22 09/28/2022 imagi ng/di agnos tic resul t No observ ation record ed. [facility] [address], [place], [address], 10/14/2022 16:11:23 09/28/20 22 09/28/2022 imagi ng/di agnos tic resul t No observ ation record ed. [facility] [address], [place], [address], 10/14/2022 16:11:29 09/28/20 22 09/28/2022 imagi ng/di agnos tic resul t No observ ation record ed. [facility] [address], [place], [address], 10/14/2022 16:11:36 04/06/20 23 04/06/2023 , [facility] ardio gram No observ ation record ed. [facility] [address], [place], [address], 05/20/2023 11:17:42 04/16/20 23 04/15/2023 elect rocar diogr am No observ ation record ed. [facility] [address], [place], [address], 05/20/2023 11:17:53 04/16/20 23 04/16/2023 elect rocar diogr am No observ ation record ed. [facility] [address], [place], [address], 05/20/2023 11:17:58 04/16/20 23 04/16/2023 elect rocar diogr am No observ ation record ed. [facility] [address], [place], [address], 05/20/2023 11:18:06 04/16/20 , [facility] ardio gram No observ ation record ed. [facility] [address] [facility] [address], [place], [address], 05/20/2023 11:16:12 04/16/20 23 04/16/2023 elect rocar diogr am No observ ation record ed. [facility] [address], [place], [address], 05/20/2023 11:19:11 04/26/20 23 04/23/2023 elect live fitchgr am No observ ation record ed. [facility] [address], [place], [address], 05/20/2023 11:21:31 09/11/20 24 09/09/2024 MRI, foot, w/o contr ast No observ ation record ed. [address] [facility] [address], [place], [address], 09/11/2024 09:09:05 02/14/20 25 02/13/2025 MRI, brain , w/wo contr ast No observ ation record ed. [address], [place], [address], 02/13/2025 17:13:22 Result Notes None recorded. Problems Name Problem SNOMED Code Status Onset Date Resolution Date Notes Provider Name and Address Organization Details Recorded Time Seizure disorder 118103597 Active 2017 per EEG, neuro consult, likely cause of syncope Nahed Ceballos PA-C Attn: Kelvin pratt,[address] [place], [address], [facility] 8 13:18:49 Pulmonar y emphysem a 99364554 Active 2017 Nahed Ceballos PA-C Attn: Kelvin pratt,[address] [place], [address], [facility] 8 15:24:17 Ventricu lar tachycar elgin 78292538 Active 2017 Nahed Ceballos PA-C Attn: Kelvin pratt,[address] [place], [address], [facility] 8 12:51:31 Lumbago with sciatica 305436276 Active 2017 Nahed Ceballos PA-C Attn: Kelvin pratt,[address] [place], [address], [place] [facility] 8 12:51:38 Body mass index measurem [facility] 92941981451 4108 Active 2023 ANA Wilson Attn: Accountin g,[address] [facility], [place], [address], [place] [facility] 4 09:26:37 Obesity 989403294 Active 2023 ANA Wilson Attn: Accountin g,[address] [facility], [place], [address], [place] [facility] 4 09:26:43 Benign essentia l hyperten ranjit 4971471 Active 2023 ANA Wilson Attn: Accountin g,[address] [place], [address], [place] [facility] 4 09:44:20 Long-ter m drug therapy Active 2023 ANA Wilson Attn: Accountin g,[address] [place], [address], [place] [facility] 4 09:44:25 Candidia sis of skin 55261153 Active 2023 ANA Wilson Attn: Accountin g,[address] [place], [address], [place] [facility] 4 09:44:28 Prediabe edinson 180849888 Active 2023 ANA Wilson Attn: Accountin g,[address] [place], [address], [place] [facility] 4 09:44:30 Acid reflux 220302054 Active 2023 ANA Wilson Attn: Accountin g,[address] [place], [address], [place] [facility] 4 09:45:06 History of polyp of colon 065709711 Active 2023 ANA Wilson Attn: Accountkelly pratt,[address] [facility], [place], [place], [address] [place] [address] 2, [place] [facility] 4 10:27:14 Mixed anxiety and depressi ve disorder 599666090 Active 2023 ANA Wilson Attn: Accountkelly g,[address] [facility], [place], [place], [address] [place] [address] 2, [place] [facility] 4 10:28:13 Positive screenin g for depressi on on PHQ-9 (Patient Health Question naire 9) 65638305964 9100 Active 2023 ANA Wilson Attn: Kelvin g,[address] [place], [place], [address] [place] [address] 2, [place] [facility] 4 10:29:09 Dizzines s 974512017 Active 2023 ANA Wilson Attn: Roseykelly pratt,[address] [place], [place], [address] [place] [address] 2, [place] [facility] 4 14:44:11 Body mass index 30+ - obesity 180535083 Active 2023 ANA Wilson Attn: Kelvin g,[address] [place], [place], [address] [place] [address] 2, [place] [facility] 4 14:45:18 Pain in left foot 37905345799 9107 Active 2024 ANA Wilson Attn: Kelvin santa,[address] [place], [place], [address] [place] [address] 2, [place] [facility] 5 14:17:25 History of fracture 848730952 Active 2024 ANA Wilson Attn: Kelvin g,[address] [place], [place], [address] [place] [address] 2, [place] [facility] 5 14:17:26 Essentia l hyperten ranjit 49092547 Active Dakota De Leon [place] [facility] 6 15:32:14 Hyperlip idemia 09562069 Active [place] [facility] 6 15:32:14 Panic disorder 546959126 Active Dakota Streeterche [place] [facility] 5 11:55:48 Vitamin D deficien cy 06553110 Active Dakota De Leon [place] [facility] 6 15:32:14 Hypergly cemia 95865475 Active 02/2017 A1c 6.1% Nahed Ceballos PA-C Attn: Kelvin g,[address] [place], [address], [place] [facility] 7 15:53:42 Shoulder pain 63773968 Active aDkota Streeterche [place] [facility] 6 15:32:14 Tired 533107396 Active Dakota De Leon [place] [facility] 6 15:32:14 Chronic obstruct edu pulmonar y disease 03123538 Active 2015 Nahed Ceballos PA-C Attn: Accountkelly g,[address] [place], [address], [place] [facility] 6 09:43:44 Syncope and collapse 389765619 Completed 201504/04/2018 06/27/2014 ECHO - normal Removal Reason: new dx (syncope ) Nahed Ceballos PA-C Attn: Kelvin g,[address] [place], [address], [place] [facility] 8 12:41:52 Iron deficien cy anemia 68863720 Active 2016 Nahed Ceballos PA-C Attn: Accountin g,[address] [place], [address], [place] [facility] 7 09:14:26 Polyp of colon 06495049 Active 2013 prox ascendin g colon; rectum. few divertic anthony in distal descendi ng colon & distal sigmoid Nahed Ceballos PA-C Attn: Accountin g,[address] [place], [address], [facility] 7 14:51:01 Divertic ular disease 765164507 Active 2016 noted on colonosc opy at distal descendi ng & sigmoid colon Nahed Ceballos PA-C Attn: Kelvin pratt,[address] [facility], [place], [address], [facility] 7 14:51:28 Gastroes ophageal reflux disease without esophagi tis 901802312 Active 2016 Nahed Ceballos PA-C Attn: Kelvin pratt,[address] [facility], [place], [address], [facility] - [facility] 7 14:51:59 Osteonec rosis of hip 929072929 Active 2016 Nahed Ceballos PA-C Attn: Kelvin pratt,[address] [facility], [place], [address], [facility] - [facility] 7 14:52:18 Malignan t tumor of breast 515142411 Completed 201611/23/2016 Nahed Ceballos PA-C Attn: Kelvin pratt,[address] [facility], [place], [address], [facility] - SI 7 14:52:35 Obstruct edu sleep apnea syndrome 87618888 Active 2016 mild, rec CPAP 8cm H2O Nahed Ceballos PA-C Attn: Kelvin pratt,[address] [facility], [place], [address], [facility] 7 14:53:41 Osteopor osis 80948516 Active 2016 Nahed Ceballos PA-C Attn: Kelvin pratt,[address] [facility], [place], [address], [facility] - SI 7 11:22:30 Problem Notes None recorded. Procedures Surgical History Date Name Laterality Status Provider Name and Address Organization Details Recorded Time 10/06/20 percutaneous radiofrequency ablation of epicardium completed Nahed Ceballos PA-C Attn: Accounting,[address], [place], [address], [facility] 10/19/2018 10:24:13 05/17/20 18 Nebulizer tx completed Nahed Ceballos PA-C Attn: Accounting,[address], [place], [address], [facility] 05/18/2018 13:21:28 05/24/20 17 Most Recent Mammogram completed Ilene Llanes CT - [facility] 06/10/2017 11:41:47 05/10/20 17 Nebulizer tx completed Nahed Ceballos PA-C Attn: Accounting,[address], [place], [address], [facility] 05/10/2017 15:52:58 11/24/19 17 Nebulizer tx completed Nahed Ceballos PA-C Attn: Accounting,[address], [place], [address], [facility] 11/24/2016 13:43:49 11/17/19 17 Nebulizer tx completed Nahed Ceballos PA-C Attn: Accounting,[address], [place], [address], [facility] 11/17/2016 09:14:16 09/07/20 16 Nebulizer tx completed Nahed Ceballos PA-C Attn: Accounting,[address], [place], [address], [facility] 09/07/2016 09:57:51 07/05/20 16 Wrist Surgery completed Nahed Ceballos PA-C Attn: Accounting,[address], [place], [address], [facility] 10/19/2018 10:22:28 07/12/20 14 Colonoscopy completed Nahed Ceballos PA-C Attn: Accounting,[address], [place], [address], [facility] 11/23/2016 14:49:32 Joint Replacement completed Nahed garcia PA-C Attn: Accounting,[address], [place], [address], [place] [facility] 11/23/2016 14:55:02 Breast Surgery completed Dakota De Leon CT - [facility] 09/04/2015 11:27:43 Mastectomy completed Joan Jose [place] [facility] 09/04/2015 11:03:09 Appendectomy completed Dakota De Leon CT - [facility] 09/04/2015 11:28:41 Imaging Results Imaging Date Name Status LastModified by Organization Details LastModified Time 01/11/2019 MRI, lumbar spine, w/o contrast completed [facility] (Imaging) [address] [place], [address], 01/12/2019 11:22:18 03/24/2019 sacroiliac joint injection (PROC) [facility] [address] [place], [address], 03/28/2019 12:34:03 06/24/2020 imaging/diagnostic result completed [facility] [place] [address] [facility] [address], [place], [address], 06/25/2020 11:41:50 06/24/2020 imaging/diagnostic result completed [address] [facility] [address], [place], [address], 06/25/2020 11:41:34 07/05/2020 electro[facility]ogram [facility] [address], [place], [address], 07/10/2020 10:27:04 07/08/2020 electrocardiogram [email or web address] [address], [place], [address], 07/10/2020 10:26:53 06/08/2020 imaging/diagnostic result completed [email or web address] Information not available 10/01/2020 09:13:19 11/14/2020 exercise stress test [facility] [address], [place], [address], 11/18/2020 15:27:08 11/15/2020 US, carotid artery completed [facility] [address], [place], [address], 11/18/2020 15:28:06 11/25/2020 imaging/diagnostic result completed [address] [facility] [address], [place], [address], 11/26/2020 12:25:26 02/21/2021 cardiac telemetry completed [address] [facility] [address], [place], [address], 03/17/2021 11:35:47 08/11/2022 imaging/diagnostic result completed [facility] [address], [place], [address], 10/14/2022 16:10:57 09/15/2022 imaging/diagnostic result completed [facility] [address], [place], [address], 10/14/2022 16:11:17 09/28/2022 imaging/diagnostic result completed [facility] [address], [place], [address], 10/14/2022 16:11:23 09/28/2022 imaging/diagnostic result completed [facility] [address], [place], [address], 10/14/2022 16:11:29 09/28/2022 imaging/diagnostic result completed [facility] [address], [place], [address], 10/14/2022 16:11:36 04/06/2023 US, echocardiogram completed [facility] [address], [place], [address], 05/20/2023 11:17:42 04/15/[address] [facility] [address], [place], [address], 05/20/2023 11:17:53 04/16/[address] [facility] [address], [place], [address], 05/20/2023 11:17:58 04/16/[address] [facility] [address], [place], [address], 05/20/2023 11:18:06 04/16/2023 , echocardiogram completed [facility] [facility] [address] [facility] [address], [place], [address], 05/20/2023 11:16:12 04/16/[address] [facility] [address], [place], [address], 05/20/2023 11:19:11 04/23/[address] [facility] [address], [place], [address], 05/20/2023 11:21:31 09/09/2024 MRI, foot, w/o contrast completed [address] [facility] [address] [facility] [address], [place], [address], 09/11/2024 09:09:05 02/13/2025 MRI, brain, w/wo contrast completed [address] [facility] [address], [place], [address], 02/13/2025 17:13:22 Procedure Notes None recorded. Medical Equipment None Reported. Allergies No known drug allergies Medications Name Sig Start Date Stop Date Status Note LastModified by Organization Details LastModified Time symbicort 160-4.5 mcg/act aero Take 2 puffs twice a day active Not Available Not Available No t Available amoxicill in 500 mg caps active Not Available Not Available Not Available vitamin d 39119 unit caps active Not Available Not Available No t Available afluria pf 8001-7637 .5 ml raji active Not Available Not Available Not Available cefuroxim e axetil 500 mg tabs active Not Available Not Available Not Available losartan potassium /hydrochl orothiazi de 50-12.5 mg tabs Take 1 tablet by mouh everyday active Not Available Not Available No t Available cartia xt 240 mg cp24 Take 1 tablet by mouth everyday active Not Available Not Available No t Available cyclobenz aprine hcl 10 mg tabs active Not Available Not Available Not Available omeprazol e 40 mg cpdr Take 1 tablet by mouth every day active Not Available Not Available No t Available ventolin hfa 108 (90 base) mcg/actae rs active Not Available Not Available Not Available oxycodone /acetamin ophen 5-325 mg tabs active Not Available Not Available Not Available diclofena c sodium dr 75 mg tbec active Not Available Not Available Not Available amoxicill in/clavul anate potassium 875-125 mg tabs active Not Available Not Available Not Available diltiazem cd 240 mg cp24 active Not Available Not Available Not Available citalopra m hydrobrom solo 20 mg tabs Take 1 tablet by mouth every day active Not Available Not Available No t Available hydrocodo ne/acetam inophen 7.5-325 mg tabs active Not Available Not Available Not Available lovastati n 20 mg tabs Take 1 tablet by mouth everyday active Not Available Not Available No t Available clonazepa m 0.5 mg tabs active [...] 1 tablet every week by oral route. 11/26/ 2018 10/29 /2024 completed Not Available Not Available Not Available [...] e 50 mcg/actua tion nasal spray,trice pension [place] 1 spray every day by intranas al [...] Not Available Not Available Not Available Afluria 0703-1382 (PF) 45 mcg (15 mcg x 3)/0.5 [...] Updated DateTime 9 165.1 cm 32 kg/m2 57407.7 4 g 73 /min 16 /min 95 % 95 % 97.6 [degF] 132 mm[Hg] 84 mm[Hg] ZEINAB Smart [facility] 9 12:02:48 Date Recorded Body height Body mass index (BMI) Body weight Heart rate Respiratory rate Oxygen saturation Oxygen saturation in Arterial blood by Pulse oximetry Body temperature Systolic blood pressure Diastolic blood pressure Provider Name and Address Organization Details Last Updated DateTime 9 165.1 cm 33.2 kg/m2 98135.0 4 g 72 /min 16 /min 93 % 93 % 98.2 [degF] 134 mm[Hg] 84 mm[Hg] Karey Morgan MA [facility] 9 11:02:56 Date Recorded Body height Respiratory rate Oxygen saturation Oxygen saturation in Arterial blood by Pulse oximetry Heart rate Systolic blood pressure Diastolic blood pressure Provider Name and Address Organization Details Last Updated DateTime 4 165.1 cm 18 /min 97 % 97 % 75 /min 150 mm[Hg] 82 mm[Hg] Dax Bazan MA [facility] 4 09:21:33 Date Recorded Systolic blood pressure Diastolic blood pressure Provider Name and Address Organization Details Last Updated DateTime 08/22/2024 140 mm[Hg] 90 mm[Hg] ANA Wilson Attn: Accounting,[address] [place], [address], [facility] 08/22/2024 09:44:02 Date Recorded Body height Body mass index (BMI) Body weight Respiratory rate Oxygen saturation Oxygen saturation in Arterial blood by Pulse oximetry Heart rate Systolic blood pressure Diastolic blood pressure Provider Name and Address Organization Details Last Updated DateTime 4 165.1 cm 30.6 kg/m2 43923 g 18 /min 96 % 96 % 73 /min 160 mm[Hg] 82 mm[Hg] Dax Bazan MA [facility] 4 14:09:58 Date Recorded Systolic blood pressure Diastolic blood pressure Systolic blood pressure Diastolic blood pressure Provider Name and Address Organization Details Last Updated DateTime 09/25/2024 130 mm[Hg] 82 mm[Hg] 132 mm[Hg] 84 mm[Hg] ANA Wilson Attn: Accounting ,[address] [place], [address] , [facility] 4 14:27:51 Date Recorded Body height Body mass index (BMI) Body weight Heart rate Oxygen saturation Oxygen saturation in Arterial blood by Pulse oximetry Systolic blood pressure Diastolic blood pressure Provider Name and Address Organization Details Last Updated DateTime 5 165.1 cm 30.6 kg/m2 57218.3 6 g 90 /min 91 % 91 % 132 mm[Hg] 90 mm[Hg] Lucius Perez MA [facility] 5 14:04:30 Date Recorded Respiratory rate Systolic blood pressure Diastolic blood pressure Provider Name and Address Organization Details Last Updated DateTime 01/25/2025 18 /min 120 mm[Hg] 80 mm[Hg] ANA Wilson Attn: Accounting, [address] [place], [address], [facility] 01/25/2025 14:21:31 Social History Question Answer Notes LastModified by Organizat ion Details LastModified Time Tobacco Smoking Status Current Every Day Smoker trying to quit Dax Bazan MA null, [facility] 08/22/2024 09:18:38 Do You Have An [...] available 06/10/2017 What Is Your Occupation? [employer] Information not available 11/07/2018 Are There Any [...]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
[2025-02-14 08:36] LABS: Basophils Absolute Auto 0.1 K/mm3 (0.0-0.1); Basophils Percent Auto 0.5 % (0.2-1.2); Eosinophils Absolute Auto 0.1 K/mm3 (0-0.3); Eosinophils Percent Auto 1.1 % (0-4.4); Hematocrit 43.7 % (37.0-47.0); Hemoglobin 13.9 g/dL (12.0-15.0); Immature Granulocyte Absolute 0.03 K/mm3 (0.00-0.031); Immature Granulocyte Percent A 0.3 % (0-0.5); Lymphocytes Absolute Auto 1.36 K/mm3 (0.9-3.2); Lymphocytes Percent Auto 14.5 % (18.3-44.2); Mean Corpuscular HGB Conc 31.8 g/dl (32-36); Mean Corpuscular Hemoglobin 29.3 pg (26-34); Mean Platelet Volume 9.7 fl (7.4-10.4); Monocytes Absolute Auto 0.9 K/mm3 (0.1-0.6); Monocytes Percent Auto 9.6 % (2.6-8.5); Platelet Count Result 234 k/mm3 (150-375); Red Blood Count 4.75 M/mm3 (4.2-5.4); Red Cell Distribution Width 13.2 % (11.5-14.5); White Blood Count 9.4 K/mm3 (4.5-10.0)
[2025-02-14 08:44] LABS: Alanine Aminotransferase 23 U/L (6-35); Albumin Level 3.9 g/dL (3.5-5.1); Alkaline Phosphatase 86 U/L (38-126); Anion Gap 7 mmol/L (4-12); Aspartate Amino Transferase 19 U/L (14-36); Bilirubin,Total 0.9 mg/dL (0.2-1.3); Blood Urea Nitrogen 13 mg/dL (7-17); Calcium 8.9 mg/dL (8.4-10.2); Carbon Dioxide 28 mmol/L (22-30); Chloride 104 mmol/L (98-107); Estimated CRCL calculation 64 ml/min; Estimated Glomerular Filt Rate > 60; Glucose 99 mg/dL (65-110); Potassium 3.9 mmol/L (3.4-5.0); Sodium 139 mmol/L (137-145)
[2025-02-14 08:48] LABS: INR 1.1; Partial Thromboplastin Time 26.7 Seconds (22.3-36.8); Prothrombin Time 14.3 Seconds (11.1-14.7)
[2025-02-14 08:56] LABS: NT Pro B Type Natriuretic Pept 3620 pg/mL (19.9-100); Troponin I < 0.012 ng/mL (0.000-0.034)
--- OUTSIDE RECORDS SUMMARY | 2025-02-14 10:07 | XMS_ITS | CONTINUITY OF CARE DOCUMENT ---
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 Leg pain, bilateral active Wilmer Monet Lower extremity edema active Wilmer Monet Dyspnea on exertion active Wilmer Monet ENCOUNTERS Date Type Provider Location Encounter Diag nosis - In-person encounter Office Visit Gutierrez Melendez MD [facility] - In-person encounter Office Visit Gutierrez Melendez MD [facility] Leg pain, bilateralLower extremity edemaDyspnea on exertion - In-person encounter Office Visit Gutierrez Melendez MD [facility] Chest pain-type to be determined - In-person encounter Office Visit Gutierrez Melendez MD [facility] Atrial flutter;ablatted - In-person encounter Office Visit Gutierrez Melendez MD [facility] Sustained ventricular tachycardiaCarotid bruits, bilateral - In-person encounter Office Visit Buddy Galindo MD [facility] Aortic atherosclerosisScreeningCAD, calcium score 130 in 2019 - In-person encounter Office Visit Caesar Castro MD [facility] Edema;oconnell thurnre?S/P Medtronic (MRI Safe) REVEAL/LinQAtrial flutter;ablattedVitamin D deficiency- on medsGoiter;nml tshBACK PAIN;CHRONICVenous stenoisisDiverticulosis, colon - In-person encounter Office Visit Caesar Castro MD [facility] SyncopeCardiomyopathy;no cad by cathPulmonary hypertension, secondaryChest painPreoperative cardiovascularExposure to SARS-associated coronavirus;neg iggDiastolic dysfunction - In-person encounter Office Visit Gutierrez Melendez MD [facility] Atrial flutter;ablatted - In-person encounter Office Visit Gutierrez Melendez MD [facility] - In-person encounter Office Visit Caesar Castro MD [facility] PVC'sCAD, calcium score 130 in 2019 - In-person encounter Office Visit Caesar Castro MD [facility] Tobacco dependence, continuousISCHEMIA;Cardiomyop athy;no cad by cathRF ablation for SVT/AF;nml tshAbdominal bloatingSEIZURE disorder - In-person encounter Office Visit Caesar Castro MD [facility] Screening - In-person encounter Office Visit Buddy Galindo MD [facility] - In-person encounter Office Visit Caesar Castro MD [facility] COPDIRON DEFICIENCYMicrovascular angina - In-person encounter Office Visit Gloria Gonzales MD [facility] - In-person encounter Office Visit Caesar Castro MD [facility] Groin pain, right - In-person encounter Office Visit Caesar Castro MD [facility] [place] [facility] Dyspnea on exertion - In-person encounter Office Visit Caesar Castro MD [facility] [place] Oncology HTN essential;neg dupelxEdema;oconnell thurnre?ISCHEMIA;Vitamin D deficiencyCardiomyopathy;no cad by cath - In-person encounter Office Visit Caesar Castro MD [facility] - In-person encounter Office Visit Caesar Castro MD [facility] Tobacco dependence, continuousDiabetes mellitus, borderlineFAMILY HISTORY OF HEART DISEASEHTN essential;neg dupelxHypercholesterolemiaObe seEdema;oconnell thurnre?SLEEP APNEA; VITAL SIGNS Date Observation Value Provider Body Mass Index (Ratio) 30.45 kg/m2 Wilmer Monet blood pressure, diastolic 65 mm[Hg] [place] blood pressure, systolic 131 mm[Hg] [facility] manohar Vaughan oxygen saturation, oximetry 99 % [...] [in_i] Chelsea Ivette pulse rate #2 72 [place] [facility] blood pressure, ramírez tolic, second observation 86 mm[Hg] Zoraida Tebid blood pressure, syst olic, second observation 145 mm[Hg] Zoraida Tebid oxygen saturation, oximetry 98 % [facility] 72 /min [place] [facility] blood pressure, diastolic 86 mm[Hg] Vi ctoria Tebid blood pressure, systolic 145 mm[Hg] Randall jose Tebid pulse rate #2 75 [facility] blood pressure, ramírez tolic, second observation 80 mm[Hg] [facility], syst olic, second observation 136 mm[Hg] [facility], oximetry 98 % [facility] pulse rate 75 /min [facility] blood pressure, diastolic 80 mm[Hg] Vi ctoria Tebid blood pressure, systolic 136 mm[Hg] Randall jose Tebid pulse rate #2 80 [facility] blood pressure, ramírez tolic, second observation 79 mm[Hg] [facility], syst olic, second observation 141 mm[Hg] [facility] saturation, oximetry 98 % [facility] pulse rate 80 /min [facility] blood pressure, diastolic 79 mm[Hg] Vi ctoria Tebid blood pressure, systolic 141 mm[Hg] Randall jose Tebid pulse rate #2 68 [facility] blood pressure, ramírez tolic, second observation 78 mm[Hg] [facility] blood pressure, syst olic, second observation 129 mm[Hg] [facility] oxygen saturation, oximetry 98 % [facility] pulse rate 68 /min [facility] blood pressure, diastolic 78 mm[Hg] Vi ctoria Tebid blood pressure, systolic 129 mm[Hg] Randall jose Tebid pulse rate #2 85 [facility] blood pressure, ramírez tolic, second observation 88 mm[Hg] [facility] blood pressure, syst olic, second observation 123 mm[Hg] [facility] oxygen saturation, oximetry 98 % [facility] pulse rate 85 /min [facility] blood pressure, diastolic 88 mm[Hg] Vi ctoria Tebid blood pressure, systolic 123 mm[Hg] Randall jose Tebid pulse rate #2 69 [facility] blood pressure, ramírez tolic, second observation 86 mm[Hg] [facility] blood pressure, syst olic, second observation 124 mm[Hg] [facility] oxygen saturation, oximetry 98 % [facility] pulse rate 69 /min [facility] blood pressure, diastolic 86 mm[Hg] Vi [facility] Tebid blood pressure, systolic 124 mm[Hg] Randall jose Tebid pulse rate #2 75 [facility] blood pressure, ramírez tolic, second observation 79 mm[Hg] [facility] blood pressure, syst olic, second observation 129 mm[Hg] [facility] oxygen saturation, oximetry 98 % [facility] pulse rate 75 /min [facility] blood pressure, diastolic 79 mm[Hg] Vi ctoria Tebid blood pressure, systolic 129 mm[Hg] Randall mendezia Tebid pulse rate #2 76 [facility] blood pressure, ramírez tolic, second observation 85 mm[Hg] [facility] blood pressure, syst olic, second observation 122 mm[Hg] [facility] oxygen saturation, oximetry 98 % [facility] pulse rate 76 /min [facility] blood pressure, diastolic 85 mm[Hg] Vi [facility] Tebid blood pressure, systolic 122 mm[Hg] Randall [facility] #2 75 [place] blood pressure, ramírez tolic, second observation 76 mm[Hg] [facility] blood pressure, syst olic, second observation 113 mm[Hg] [facility] oxygen saturation, oximetry 98 % [facility] pulse rate 75 /min [facility] blood pressure, diastolic 76 mm[Hg] Vi [facility] Ted blood pressure, systolic 113 mm[Hg] Randall [facility] pulse [facility] #2 77 [facility] blood pressure, ramírez tolic, second observation 86 mm[Hg] [facility] blood pressure, syst olic, second observation 139 mm[Hg] [facility] oxygen saturation, oximetry 98 % [facility] pulse rate 77 /min [facility] blood pressure, diastolic 86 mm[Hg] [facility], systolic 139 mm[Hg] Randall [facility] pulse [facility] #2 77 [facility] blood pressure, ramírez tolic, second observation 82 mm[Hg] [facility] blood pressure, syst olic, second observation 140 mm[Hg] [facility] oxygen saturation, oximetry 98 % [facility] pulse rate 77 /min [facility] blood pressure, diastolic 82 mm[Hg] [facility], systolic 140 mm[Hg] Randall jose bid pulse rate #2 76 [facility] blood pressure, ramírez tolic, second observation 82 mm[Hg] [facility] blood pressure, syst olic, second observation 138 mm[Hg] [facility] oxygen saturation, oximetry 98 % [facility] pulse rate 76 /min [place] [facility] blood pressure, diastolic 82 mm[Hg] Vi ctoria Tebid blood pressure, systolic 138 mm[Hg] Randall jose Tebid pulse rate #2 71 [facility] blood pressure, ramírez tolic, second observation 84 mm[Hg] Zoraida Tebid blood pressure, syst olic, second observation 136 mm[Hg] [facility] oxygen saturation, oximetry 98 % [facility] pulse rate 71 /min [place] [facility] blood pressure, diastolic 84 mm[Hg] Vi [place] Tebid blood pressure, systolic 136 mm[Hg] Randall jose Tebid pulse rate #2 73 [facility] blood pressure, ramírez tolic, second observation 81 mm[Hg] [facility] blood pressure, syst olic, second observation 135 mm[Hg] [facility] oxygen saturation, oximetry 98 % [facility] pulse rate 73 /min [place] [facility] blood pressure, diastolic 81 mm[Hg] Vi [facility] Tebid blood pressure, systolic 135 mm[Hg] Randall mendezia Tebid pulse rate #2 74 [place] [facility] blood pressure, ramírez tolic, second observation 80 mm[Hg] [place] [facility] blood pressure, syst olic, second observation 151 mm[Hg] Zoraida Tebid oxygen saturation, oximetry 98 % [facility] pulse rate 74 /min [place] [facility] blood pressure, diastolic 80 mm[Hg] Vi wy[place] Tebid blood pressure, systolic 151 mm[Hg] Randall jose Tebid pulse rate #2 78 [facility] blood pressure, ramírez tolic, second observation 76 mm[Hg] [place] [facility] blood pressure, syst olic, second observation 142 mm[Hg] [facility] oxygen saturation, oximetry 98 % Zoraida d pulse rate 78 /min [place] d blood pressure, diastolic 76 mm[Hg] Vi ctoria Tebid blood pressure, systolic 142 mm[Hg] Randall jose Tebid pulse rate #2 67 [facility] blood pressure, ramírez tolic, second observation 82 mm[Hg] [facility] blood pressure, syst olic, second observation 136 mm[Hg] [facility] oxygen saturation, oximetry 98 % [place] pulse rate 67 /min [place] blood pressure, diastolic 82 mm[Hg] Vi ctoria Tebid blood pressure, systolic 136 mm[Hg] Randall jose Tebid pulse rate #2 71 [place] blood pressure, ramírez tolic, second observation 88 mm[Hg] [facility] blood pressure, syst olic, second observation 132 mm[Hg] Zoraida d oxygen saturation, oximetry 98 % [place] pulse rate 71 /min [place] blood pressure, diastolic 88 mm[Hg] Vi ctoria Tebid blood pressure, systolic 132 mm[Hg] Arndall jose Tebid pulse rate #2 70 [place] blood pressure, ramírez tolic, second observation 86 mm[Hg] [facility] blood pressure, syst olic, second observation 136 mm[Hg] Zoraida d oxygen saturation, oximetry 98 % [place] pulse rate 70 /min [facility] blood pressure, diastolic 86 mm[Hg] Vi ctoria Tebid blood pressure, systolic 136 mm[Hg] Randall jose Tebid Body Mass Index (Ratio) 32.28 kg/m2 Dieter Castro MD pulse rate #2 75 [place] [facility] blood pressure, ramírez tolic, second observation 78 mm[Hg] [facility] blood pressure, syst olic, second observation 136 mm[Hg] [facility] oxygen saturation, oximetry 98 % [facility] pulse rate 75 /min [facility] blood pressure, diastolic 78 mm[Hg] Vi [facility] blood pressure, systolic 136 mm[Hg] Randall jose blood pressure, cuff size regular Ke rri [facility]cl[facility]haregency hospital companymartina blood pressure, diastolic 92 mm[Hg] Ke rri [facility] blood pressure, systolic 145 mm[Hg] Curtis elizabeth [facility]ina oxygen saturation, oximetry 98 % Charissa Kashifbrightlook hospital[facility]ina respiratory rate E&M 18 /min Charissa G nirmalbrightlook hospitalmartina pulse rate 74 /min Charissa Rochemoonmere [facility] weight E&M 194 [lb_av] Charissa Melchormoone [facility] height E&M 65 [in_i] Charissa Melchormere [facility] pulse rate #2 67 Zora[place] blood pressure, ramírez tolic, second observation 91 mm[Hg] [facility] blood pressure, syst olic, second observation 140 mm[Hg] [facility] oxygen saturation, oximetry 98 % [facility] pulse rate 67 /min [facility] blood pressure, diastolic 91 mm[Hg] Vi ctoria d blood pressure, systolic 140 mm[Hg] Randall jose d pulse rate #2 76 [facility] blood pressure, ramírez tolic, second observation 87 mm[Hg] [facility] blood pressure, syst olic, second observation 132 mm[Hg] [facility] oxygen saturation, oximetry 98 % [facility] pulse rate 76 /min [facility] blood pressure, diastolic 87 mm[Hg] Vi ctoria Tebid blood pressure, systolic 132 mm[Hg] Randall jose Tebid pulse rate #2 72 [facility] blood pressure, ramírez tolic, second observation 104 mm[Hg] [facility] blood pressure, syst olic, second observation 164 mm[Hg] [facility] oxygen saturation, oximetry 98 % [facility] pulse rate 72 /min [facility] blood pressure, diastolic 104 mm[Hg] Vi ctoria Tebid blood pressure, systolic 164 mm[Hg] Randall jose Tebid pulse rate #2 75 [facility] blood pressure, ramírez tolic, second observation 95 mm[Hg] [facility] blood pressure, syst olic, second observation 151 mm[Hg] [facility] oxygen saturation, oximetry 98 % [facility] pulse rate 75 /min [facility] blood pressure, diastolic 95 mm[Hg] Vi ctoria Tebid blood pressure, systolic 151 mm[Hg] Randall jose Tebid pulse rate #2 82 [facility] blood pressure, ramírez tolic, second observation 90 mm[Hg] [facility] blood pressure, syst olic, second observation 142 mm[Hg] [facility] oxygen saturation, oximetry 98 % [facility] pulse rate 82 /min [facility] blood pressure, diastolic 90 mm[Hg] Vi ctoria Tebid blood pressure, systolic 142 mm[Hg] Randall jose Tebid pulse rate #2 77 [facility] blood pressure, ramírez tolic, second observation 85 mm[Hg] [facility] blood pressure, syst olic, second observation 145 mm[Hg] [facility] oxygen saturation, oximetry 98 % Z[place] pulse rate 77 /min [place] blood pressure, diastolic 85 mm[Hg] Vi ctoria Tebid blood pressure, systolic 145 mm[Hg] Randall jose Tebid pulse rate #2 76 [facility] blood pressure, ramírez tolic, second observation 80 mm[Hg] [facility] blood pressure, syst olic, second observation 160 mm[Hg] [facility] oxygen saturation, oximetry 98 % [facility] pulse rate 76 /min [facility] blood pressure, diastolic 80 mm[Hg] Vi ctoria Tebid blood pressure, systolic 160 mm[Hg] Randall jose Tebid pulse rate #2 69 [place] blood pressure, ramírez tolic, second observation 94 mm[Hg] [facility] blood pressure, syst olic, second observation 115 mm[Hg] [facility] oxygen saturation, oximetry 98 % [place] pulse rate 69 /min [facility] blood pressure, diastolic 94 mm[Hg] Vi ctoria Tebid blood pressure, systolic 115 mm[Hg] Randall jose Tebid pulse rate #2 74 [facility] blood pressure, ramírez tolic, second observation 92 mm[Hg] [facility] blood pressure, syst olic, second observation 144 mm[Hg] [facility] oxygen saturation, oximetry 98 % [facility] pulse rate 74 /min [facility] blood pressure, diastolic 92 mm[Hg] Vi ctoria Tebid blood pressure, systolic 144 mm[Hg] Randall jose Tebid pulse rate #2 73 [facility] blood pressure, ramírez tolic, second observation 84 mm[Hg] [facility] blood pressure, syst olic, second observation 137 mm[Hg] [facility] oxygen saturation, oximetry 98 % [facility] pulse rate 73 /min [facility] blood pressure, diastolic 84 mm[Hg] Vi lauren [facility] blood pressure, systolic 137 mm[Hg] Randall garcia [facility] Body Mass Index (Ratio) 32.45 kg/m2 Kristine [...] nguyen Henry blood pressure, systolic 120 mm[Hg] [place] nda Henry pulse rate 87 /min Ailyn Henry oxygen saturation, oximetry 97 % Ailyn Henry respiratory rate E&M 16 /min Ailyn Figueroa Body Mass Index (Ratio) 31.12 kg/m2 Florentino Parekh weight E&M 187 [lb_av] Ailyn Figueroa blood pressure, diastolic 70 mm[Hg] Karel Peña blood pressure, systolic 126 mm[Hg] Juliet Peña pulse rate 58 /min Martita ortega oxygen saturation, oximetry 98 % Marttia Peña respiratory rate E&M 18 /min Deepa [...] [employer] 3.5-5.2 sodium, serum 144 mmol/L [facility] [phone]/04 /22 urea nitrogen/creatinine ratio, serum 14 [facility] [...] Not Estab. platelet count 248 X10E3/UL [facility] [phone]/04 /22 red blood cell distribution width 13.2 [...] Not Estab. platelet count 240 X10E3/UL [facility] [phone]/01 /23 red blood cell distribution width 12.9 [...] [facility] 3.5-5.2 sodium, serum 144 mmol/L [facility] [phone]/01 /23 urea nitrogen/creatinine ratio, serum 9 [facility] [...] [facility] 3.5-5.2 sodium, serum 140 mmol/L [facility] [phone]/01 /22 urea nitrogen/creatinine ratio, serum 9 [facility] [...] iron binding capacity, unsaturated 260 ug/dL [facility] [phone]/08 /07 iron binding capacity, total 329 ug/dL [facility] [phone]/08 /07 free thyroxine index 2.7 [facility] 1.2-4.9 [...] [facility] 0-149 cholesterol, serum 198 mg/dL [facility] [phone]/08 /07 calcium, serum 9.7 mg/dL [facility] 8.7-10.3 [...] Not Estab. platelet count 244 X10E3/UL [facility] [phone]/08 /07 red blood cell distribution width 13.1 [...] [facility] 0-149 cholesterol, serum 179 mg/dL [facility] [phone]/12 /10 coagulation managed by Marco A Velasco [...] [facility] 3.5-5.2 sodium, serum 143 mmol/L [facility] [phone]/12 /08 urea nitrogen/creatinine ratio, serum 15 [facility] [...] Not Estab. platelet count 248 X10E3/UL [facility] [phone]/12 /08 red blood cell distribution width 13.3 [...] (low-density lipoprotein/high-de nsity lipoprotein) ratio 1.4 RATIO [facility] - lipoprotein, beta, serum, point, quantitative, calculated 95.4 (?) [facility] 0.0 - 100.0 HDL cholesterol, serum 69.0 mg/dL [facility] 45.0 - 65.0 High cholesterol, serum 203.0 mg/dL [facility] 0.0 - 200.0 High triglyceride, serum, fasting 193.0 mg/dL [facility] 0.0 - 150.0 High lipase, serum 21.0 U/L [facility] 13.0 - 60.0 anion gap, serum 13.4 [facility] albumin/globulin ratio, serum 1.8 g/dL [facility] 1.1 - 2.5 globulin, serum 2.5 [facility] 2.3 - 3.8 urea nitrogen/creatinine ratio, serum 12.5 [facility] - Estimated Glomerular Filtration Rate (calc) [...] - 1.2 urea nitrogen, blood 10.0 mg/dL [facility] 8.0 - 23.0 blood glucose, random 72.0 mg/dL [facility] 74.0 - 99.0 Low amylase, serum 48.0 1/L [facility] 28.0 - 100.0 red blood cell distribution width, size density 43.4 fL [facility] - immature granulocytes, percentage of total cells, blood 0.4 % [facility] - nucleated red blood cells as percent of blood leukocytes 0.0 % [facility] - red blood cell (erythrocyte) count, per high power field 0.0 10*3/UL [facility] - eosinophils as percent of blood leukocytes 0.7 % [facility] - neutrophils as percent of blood leukocytes 60.3 % [facility] - Absolute Neutrophils 5.9 CELLS/UL [facility] 1.5 - 7.8 basophils as percent of blood leukocytes 0.5 % [facility] - Absolute Basophils 0.1 CELLS/UL [facility] 0.0 - 0.2 monocytes as percent of blood leukocytes 10.9 % [facility] - Absolute Monocytes 1.1 CELLS/UL [facility] 0.2 - 1.0 High lymphocytes as percent of blood leukocytes 27.2 % [facility] Lymphocytes 2.7 CELLS/UL [facility] 0.9 - 3.9 mean platelet volume 11.8 (?) [facility] - platelet count 208.0 THOUSAND/UL [facility] 100.0 - 400.0 mean corpuscular hemoglobin concentration, RBC 32.2 G/DL [facility] 31.0 - 38.0 mean corpuscular hemoglobin, RBC 29.4 pg [facility] 25.0 - 35.0 mean corpuscular volume, RBC 91.4 fL [facility] 75.0 - 100.0 hematocrit, blood 51.0 % [facility] 35.0 - 55.0 hemoglobin, blood 16.4 g/dL [facility] 11.5 - 16.5 erythrocyte count, whole blood 5.6 MILLION/UL [facility] 3.5 - 5.5 High hemoglobin A1C, blood, as % of total hemoglobin 6.1 % [facility] 4.0 - 5.6 High folate, serum 6.0 NG/MLM [facility] 5.6 - 45.8 ferritin, serum 118.9 ng/mL [facility] 13.0 - 150.0 iron, serum 73.0 ug/dL [facility] 25.0 - 156.0 iron saturation percent, serum 20.8 % [facility] 20.0 - 50.0 iron binding capacity, total 351.4 ug/dL [facility] 250.0 - 450.0 rapid plasma reagin antibody, serum NON-REACTIV E [facility] NON-REACTIVE very low density lipoproteins 35.6 mg/dL [facility] 5.0 - 40.0 LDL/HDL (low-density lipoprotein/high-de [...] - 150.0 urea nitrogen/creatinine ratio, serum 13.8 [facility] - Estimated Glomerular Filtration Rate [...] cell distribution width, size density 49.1 fL [facility] - immature granulocytes, percentage of total cells, blood 0.4 % [facility] - nucleated red blood cells as percent of blood leukocytes 0.0 % [facility] - red blood cell (erythrocyte) count, per high power field 0.0 10*3/UL [facility] - eosinophils as percent of blood leukocytes 0.7 % [facility] - neutrophils as percent of blood [...] 1 tablet by mouth once daily 11/11 [facility] Specialist valsartan 40 mg tablet active [...] a week 05/31 - 11/11 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 MAGNESIUM OXIDE 400 MG ORAL TABLET completed [...] 05/28 - 05/27 Charissa Blanc VITAMIN D3 [id number] UNIT ORAL CAPSULE completed once a week [...] Marincelinezavianney smoking, date started 42 Kehinde Garcia RETAIL [employer] 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 smoking/tobacco cess ation, patient education and counseling yes Adriana Thomas smoking history, tot al pack/day 0.5-1 Lakesha Hodgsonangela [employer] 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 cigarette use yes Adriana [place] [facility] smoking [...] Date Observation Value Provider energy level yes [place] [facility] level yes [place] [facility] energy level yes [place] [facility] energy level yes [place] [facility] energy level yes [place] [facility] energy level yes [place] [facility] energy level yes [place] [facility] energy level yes [place] [facility] energy level yes [place] [facility] energy level yes [place] [facility] energy level yes [place] [facility] energy level yes [place] energy level yes [place] energy level yes [place] energy level yes [place] energy level yes [place] energy level yes [place] energy level yes [place] [facility] energy level yes [place] energy level yes [place] energy level yes [place] [facility] energy level yes [place] [facility] energy level yes [place] [facility] energy level yes [place] [facility] energy level yes [place] [facility] energy level yes [place] [facility] energy level yes [place] [facility] energy level yes Z[place] Tebid energy level yes Z[place] Tebid energy level no Zora[place] Tebid FAMILY HISTORY Family Member Condition Father Family History of Di abetes: Mother Family History of Di abetes: INSURANCE PROVIDERS Payer name Policy type / Coverage type [place] [employer] ID [employer]ARP MEDICARE ADVANTAGE ST 0 003 (HMO POS) Medicare [id number] ADVANCE DIRECTIVES Name Date DISCUSSED - NO DECISION MADE TREATMENT PLAN Date Name Performer [id number],C, B P today: 131/65 P rior BP: 152/86 (03/26/2023) Labs Reviewed: C reat: 0.85 (02/13/2021) C hol: 198 (05/31/2020) HDL: 70 (05/31/2020) Wilmer Wallyalan [id number],S, Wilmer Sandra i [id number],C,C ardiac monitor showed S inus Rhythm with occasional Ventricular ectopics and rare Supraventricular e ctopics. The average heart rate was 70bpm with a maximum rate of 105bpm and a m inimum rate of 61bpm. VE?s were documented as triplets, couplets, bigeminal c ycles, and isolated beats with a burden of 2.26%. Wilmer kurtvianney [id number],C,p ending stress test w ill send in nitro for now as needed [id number],C,A BI was normal but sensilase showed decreased PVR with normal perfusion pressures b/l, this is c/w venous insufficiency. Wilmer celinei [id number],C,pending stres s nuclear Wilmer celinei [id number],C,W ill check stress nuclear to assess for ischemia and and PFT given her hx of smoking Wilmer kurtvianney [id number],C,p t has chest pain which is new for her and not improving, will check stress nuclear Wilmer Monet [id number],S,w ill check 48 hr holter to assess for arrythmias which may be contributing to her chest discomfort Wilmer Monet [id number],C,s he did suffer injury on leg which may be a contributor but has decreased pulses on left leg, will check TANG and Sensilase to assess arterial flow. Wilmer Monet [id number],C, B P today: 152/86 P rior BP: 127/79 (09/11/2022) Labs Reviewed: C reat: 0.85 (02/13/2021) C hol: 198 (05/31/2020) HDL: 70 (05/31/2020) Wilmer Monet [id number],C,e ncouraged to cut down by half until able to quit. pt verbalizes desire to quit smoking. 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 syncope or seizure as in HPI. will plan ILR. 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 occurs at rest and with exertion. radation to L arm and associated with nausea. will check rtroutine stress test and ECHO 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 Electrophysiology: B P today: 131/65 P rior [...] verbalizes desire to quit smoking. 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 Electrophysiology:? syncope or seizure as in HPI. will plan ILR. chino Garcia RETAIL [employer] 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 Electrophysiology: B P today: 127/79 P rior [...] twice daily Orders: 9 12 Minor 10-19min (CPT-70877) [facility]ital Follow up : H er updated medication list for this problem includes: Coreg 25 Mg Oral Tablet (Carvedilol) ..... One tab. twice daily Orders: E KG (CPT-58792) M onitor - Telemetry (Mobile Cardiac) (CPT-99025) 9 12 Minor 10-19min (CPT-48676) [facility] Fo llow up : [...] : O rders: C arotid Duplex Bilateral (CPT-85235) [facility] Electrophysiology Fo llow up : S [...] BPM T otal VE: 5522 -- 5.4% [place] 5 015 Isolated 26 Pairs 1 22 Bigeminal 2 5 Trigeminal T otal SVE: 185 -- 0.1% [place] 1 85 Isolated Her updated medication list for this problem includes: Coreg 25 Mg Oral Tablet (Carvedilol) ..... One tab. twice daily Joaquin Reynolds Electrophysiology Fo llow up : s ustained VT seen on stress test yesterday. Orders: P ARTIAL THROMBOPLASTIN TIME, ACTIVATED (763) P ROTHROMBIN TIME WITH INR (8847) C BC (INCLUDES DIFF/PLT) (6399) B ASIC METABOLIC PANEL W/EGFR (53715) C T Cardiac with contrast (Pre-Ablation) (CPT-19620) A BLATION w/ Anesthesia (*) Stress 11/14/2020: [...] Bong Castro MD Cardiology follow up Caesar crwoe MD Cardiology follow up :maethruner lef stented [...] and rpr and carodi dupelx, b12 neg Caeasr Castro MD Cardiology follow up : l [...] spital Follow up: O rders: E KG (CPT-25426) 9 9214 MOD Complex (CPT-43850) S chedule Followup (*) Her updated medication [...] successfully ablated. Orders: 9 9214 MOD Complex (CPT-82705) S chedule Followup (*) Her updated medication [...] Jean Electrophysiology: O rders: C omplete Echo (CPT-21810) 9 9214 MOD Complex (CPT-63575) S chedule Followup (*) Arvin Jean Electrophysiology: O rders: F VC - 19515 (68322) F RC - 26126 (96378) D LCO - 67897 (66759) 9 9214 MOD Complex (CPT-65954) S chedule Followup (*) Arvin Jean Electrophysiology: [...] Electrophysiology: O rders: 9 9214 MOD Complex (CPT-05404) S chedule Followup (*) Her updated medication [...] stress test. Orders: S TR - Adenosine (CPT-30109) 9 9214 MOD Complex (CPT-34613) S chedule Followup (*) Her updated medication [...] plan for EP study with ablation at [facility] on 10/06/18. Orders: E KG (CPT-23528) ABLATION w/ Anesthesia (*) 9 9214 MOD Complex (CPT-76328) S chedule Followup (*) Her updated medication [...] Caesar Castro MD Cardiology follow up Caesar croew MD Cardiology follow up : s ill [...] breath, fatigue, dizziness, nausea, or diaphoresis) of [place] [employer] Class III (defined as symptoms with everyday living activities, i.e. moderate limitation) or [place] [employer] Class IV (defined as inability [...] breath, fatigue, dizziness, nausea, or diaphoresis) of [place] [employer] Class III (defined as symptoms with everyday living activities, i.e. moderate limitation) or [place] [employer] Class IV (defined as inability [...] problem includes: Cartia Xt 120 Mg Oral [id number]-ark (Diltiazem hcl coated beads) ..... One a [...] problem includes: Cartia Xt 120 Mg Oral Ag88s-oox (Diltiazem hcl coated beads) ..... One a [...] problem includes: Cartia Xt 120 Mg Oral Xr21f-htr (Diltiazem hcl coated beads) ..... One a [...] tab daily Cartia Xt 120 Mg Oral Jg26e-[id number] (Diltiazem hcl coated beads) ..... One a [...] tab daily Cartia Xt 120 Mg Oral Xt95n-dyq (Diltiazem hcl coated beads) ..... One a [...] AND CMP NORMAL, BP MEDS RELATEED? WILL [facility] er updated medication list for [...] Name Holter Monitor 48 hr DLCO - 67321 FRC - 21649 FVC - 81250 Stress Regadenoson Arterial Duplex Bi-L ower EX Arterial - SENSILASE Loop Rec Implant - S LHV CXR- PA/Lat Stress Routine Complete Echo DLCO - 00415 FRC - 89041 FVC - 89246 Carotid Duplex Bilat eral Monitor - Telemetry [...] PANEL Holter Monitor 24 Hr DLCO - 10846 FRC - 47377 FVC - [address] Thyroid Ultrasound Thyroid [...] D, 25-Hydrox y HEMOGLOBIN A1c DLCO - 25710 FRC - 99058 FVC - 43774 Covid Antibody Igg TSH, free T4, total T3 Holter Monitor 24 Hr Vitamin D, 25-Hydrox y HEMOGLOBIN A1c LIPID PANEL PARTIAL THROMBOPLAST IN TIME, ACTIVATED BASIC METABOLIC PANE L W/EGFR CBC (INCLUDES DIFF/P LT) ABLATION w/ Anesthes ia STR - Adenosine Complete Echo DLCO - 88429 FRC - 74927 FVC - 24248 DLCO - 01984 FRC - 56773 FVC - 93973 PROTHROMBIN TIME WIT H INR LIPID PANEL CBC (INCLUDES DIFF/P LT) BASIC METABOLIC PANE L W/EGFR Vitamin D, 25-Hydrox y CT, Coronary Calcium Score Complete Echo Low Dose Lung CT URINALYSIS, RANDOM, MICROALB/CREATININE HEMOGLOBIN A1c LIPID PANEL BASIC METABOLIC PANE L W/EGFR PROBNP, N TERMINAL DLCO - 89500 FRC - 37145 FVC - 21262 Vitamin D, 25-Hydrox y PROBNP, N TERMINAL BASIC METABOLIC PANE L W/EGFR LIPID PANEL URINALYSIS, RANDOM, MICROALB/CREATININE HEMOGLOBIN A1c BASIC METABOLIC PANE L W/EGFR Complete Echo Low Dose Lung CT CBC (INCLUDES DIFF/P LT) HEMOGLOBIN A1c CT Abdomen w/o contr ast LIPASE AMYLASE COMPREHENSIVE METABO LIC PANEL, W/EGFR CT Head w/o contrast LIPID PANEL PROBNP, N TERMINAL DLCO - 27213 FRC - 49761 FVC - 11301 Complete Echo DLCO - 72931 FRC - 54151 FVC - 02527 FOLATE, SERUM ECP - Medicare RPR (MONITOR) W/REFL TITER VITAMIN D, 25-HYDROX Y, LC/MS/MS Complete Echo IRON AND TOTAL IRON BINDING CAPACITY FERRITIN URINALYSIS, COMPLETE W/REFLEX TO CULTURE LIPID PANEL CBC (INCLUDES DIFF/P LT) DLCO - 97027 FRC - 61719 FVC - 14910 X-Ray, Chest, PA & L ateral PARTIAL [...] STR - Nuclear Complete Echo DLCO - 02195 FRC - 90774 FVC - 06870 HISTORY OF PROCEDURES Procedure Date Procedure Name [...] completed FVC / MVV with bronchodilator - 66675 Caesar Castro MD completed BLOOD COUNT HEMOGLOBIN Caesar Castro MD completed FRC - 15546 Caesar Castro MD complet ed SpO2 w/o 6min walk/titration Caesar Castro MD completed DLCO - 96769 Caesar Castro MD comple nedra CT- Coronary [...] completed FVC / MVV with bronchodilator - 60609 Caesar Castro MD completed BLOOD COUNT HEMOGLOBIN Caesar Castro MD completed FRC - 58355 Caesar Castro MD complet ed SpO2 w/o 6min walk/titration Caesar Castro MD completed DLCO - 68942 Caesar Castro MD comple nedra Stress EKG [...] completed FVC / MVV with bronchodilator - 96471 Caesar Castro MD completed FRC - 74556 Caesar Castro MD complet ed SpO2 - 36085 Caesar Castro MD comple nedra DLCO - 43870 Caesar Castro MD comple nedra Loop Recorder [...] REMOTE </30 D TECH REVIEW completed SNOMED-CT: 200908622359687 Current Medications Documented Caesar Castro MD completed Loop Recorder Interrogation, Remote Caesar Castro MD INTERROGATION EVALUATION REMOTE </30 D ILR SYS completed ICM Interrogation, Remote (Tech) Caesar Castro MD INTERROGATION EVAL REMOTE </30 D TECH REVIEW completed SNOMED-CT: 15966239 Physical Exam, Performed: Pulse Exam of Foot Buddy Galindo MD completed SNOMED-CT: 418992176815438 Current Medications Documented Buddy Galindo MD completed Loop Recorder Interrogation, Remote Caesar Castro MD INTERROGATION EVALUATION REMOTE </30 D ILR SYS completed ICM Interrogation, Remote (Tech) Caesar Castro MD INTERROGATION EVAL REMOTE </30 D TECH REVIEW completed SNOMED-CT: 812861088089708 Current Medications Documented Caesar Castro MD completed Loop Recorder Interrogation, Remote Caesar Castro MD INTERROGATION EVALUATION REMOTE </30 D ILR SYS completed ICM Interrogation, Remote (Tech) Caesar Castro MD INTERROGATION EVAL REMOTE </30 D TECH REVIEW completed EKG Gloria Gonzales MD complet ed SNOMED-CT: 393046023200249 Current Medications Documented Gloria Gonzales MD completed Loop Recorder Interrogation, Remote Caesar Castro MD INTERROGATION EVALUATION REMOTE </30 D ILR SYS completed ICM Interrogation, Remote (Tech) Caesar Castro MD INTERROGATION EVAL REMOTE </30 D TECH REVIEW completed SNOMED-CT: 706638327161628 Current Medications Documented Caesar Castro MD completed SNOMED-CT: 364734864 Smoking Cessation Counseling Caesar Castro MD completed SNOMED-CT: 790901388976078 Current Medications Documented Caesar Castro MD completed SNOMED-CT: 968087392 Smoking Cessation Counseling Caesar Castro MD completed SNOMED-CT: 323308321335728 Current Medications Documented Caesar Castro MD completed BLOOD COUNT HEMOGLOBIN Caesar Castro MD completed FVC - 07310 Caesar Castro MD complet ed FRC - 94152 Caesar Castro MD complet ed DLCO - 47119 Caesar Castro MD comple nedra Stress EKG Aldo Haney MD completed Regadenoson, 4 units Caesar Castro MD completed Cardiolite, 2 units Caesar Castro MD completed SPECT Images Buddy Galindo MD complet ed Event Monitor Caesar Castro MD compl eted Event Monitor Caesar Castro MD compl eted SNOMED-CT: 836488754 Smoking Cessation Counseling Caesar Castro MD completed SNOMED-CT: 252391648746009 Current Medications Documented Caesar Castro MD completed
--- OUTSIDE RECORDS SUMMARY | 2025-02-14 10:07 | XMS_ITS | Clinical Summary ---
Author Organization [facility] Address [address] [place] [address] Phone Care Team Providers Care Information Writer Name Role Phone Nahed Ceballos Primary Care Provider [phone] Allergies No known active allergies Medications lovastatin [...] times daily. 03/08/2019 Active ergocalciferol (VITAMIN D) 77577 UNIT Capsule Take 1 Cap by mouth [...] Insurance MEDICAID [employer] Care Teams Information Writer Relationship Specialty Start Date End Date Nahed Ceballos PA [address] [address] PCP - General Adult Medicine 03/01/19
--- OUTSIDE RECORDS SUMMARY | 2025-02-14 10:07 | XMS_ITS | Clinical Summary ---
Author Organization [facility] Address [address] [place] [address] Care Team Providers Care Dance Professor Name Role Phone Zachary New MD Primary Care Provider [phone] Source Comments [facility],non-owned Affiliates and Associated Physician Practices is amultiple site organization consisting of ambulatory clinics and hospital sitesin [place], [place], [place] and [place]. This disclosure is being madepursuant to the Care Everywhere program and may not contain all information available regarding this patient. Last updated 18.[facility] Allergies No known active allergies Medications * Be aware that medications may not be up to date on this document. Alwaysverify current medications with the patient. 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
--- NOTE | 2025-02-14 10:25 | ED_ITS ---
HPI - SOB/Dyspnea General Chief Complaint: Shortness of Breath/Dyspnea <Lachelle Nation PA-C - Last Filed: 02/15/25 14:59> Stated Complaint: legs and feet swollen, hard time breathing <Lachelle Nation PA-C - Last Filed: 02/15/25 14:59> Time Seen by Provider: 02/14/25 09:15 <Lachelle Nation PA-C - Last Filed: 02/15/25 14:59> Source: patient <Lachelle Nation PA-C - Last Filed: 02/15/25 14:59> Mode of arrival: ambulatory <JIM Berry Last Filed: 02/15/25 14:59> Limitations: no limitations <Lachelle Nation PA-C - Last Filed: 02/15/25 14:59> History of Present Illness HPI Narrative: This is a 69 year old female that presents to the ER for lower extremity edema. Ongoing since yesterday. Reports pain in the lower extremities. Reports shortness of breath. History of COPD. Reports she is a former smoker. Denies chest pain. <Lachelle Nation PA-C - Last Filed: 02/15/25 14:59> Related Data Home Medications: Home Medications ?Medication ?Instructions ?Recorded ?Confirmed ?Last Taken ?Type hydrochlorothiazide 12.5 mg capsule 12.5 mg PO QAM 10/22/21 02/14/25 02/13/25 History lovastatin 20 mg tablet 20 mg PO DAILY 10/22/21 02/14/25 02/13/25 History omeprazole 40 mg capsule,delayed 40 mg PO QAM 10/22/21 02/14/25 02/13/25 History release valsartan 40 mg tablet 40 mg PO QAM 10/22/21 02/14/25 02/13/25 History albuterol sulfate 1.25 mg/3 mL 1.25 mg inhalation Q4H PRN Dyspnea 02/04/22 02/14/25 02/13/25 History solution for nebulization albuterol sulfate 90 mcg/actuation 2 puff inhalation Q4-6H PRN Dyspnea 02/04/22 02/14/25 02/13/25 History aerosol inhaler citalopram 20 mg tablet 20 mg PO QAM 02/04/22 02/14/25 02/13/25 History metformin 500 mg tablet 500 mg PO QAM 02/04/22 02/14/25 02/13/25 History naproxen sodium 220 mg capsule 440 mg PO Q12H PRN back pain 07/26/24 02/14/25 02/13/25 History (Aleve) <Lachelle Nation PA-C - Last Filed: 02/15/25 14:59> Allergies/Adverse Reactions: Allergies Allergy/AdvReac Type Severity Reaction Status Date / Time No Known Allergies Allergy Verified 02/14/25 08:20 <Lachelle Nation PA-C - Last Filed: 02/15/25 14:59> Review of Systems 2 Review of Systems: CONSTITUTIONAL: Denies fever CARDIOVASCULAR: Reports edema. Denies chest pain RESPIRATORY: Reports cough and dyspnea. <Lachelle Nation PA-C - Last Filed: 02/15/25 14:59> All systems reviewed & are unremarkable except as noted in HPI and below < Lachelle Ntaion PA-C - Last Filed: 02/15/25 14:59> [facility] Past Medical History Medical History: Medical History (Updated 02/15/25 @ 14:59 by Lachelle Nation PA-C) Syncope and collapse Cardiac arrhythmia Chronic headache TIA (transient ischemic attack) SEYMOUR (obstructive sleep apnea) bipap Atrial fibrillation Atrial paroxysmal tachycardia COPD (chronic obstructive pulmonary disease) Asthma Diabetes Hyperlipidemia Hypertension Seizures recently taken off meds Stenosis of artery of left lower extremity <Lachelle Nation PA-C - Last Filed: 02/15/25 14:59> Surgical History Surgical History: Surgical History History of surgery on wrist History of hip replacement bilateral Status post ablation of accessory bypass tract <Lachelle Nation PA-C - Last Filed: 02/15/25 14:59> Family History Family History: Family History Father Family history of diabetes mellitus in first degree relative Patient's father is Acute myocardial infarction Mother Family history of diabetes mellitus in first degree relative Patient's mother is Family history of malignant neoplasm of bone <Lachelle Nation PA-C - Last Filed: 02/15/25 14:59> Social History Social History: Social History (Updated 03/31/24 @ 10:04 by Jen Rider [facility]) Smoking packs per day: 1 Smoking cigarettes per day: 20.0 Years smoked: 30 Smoking pack-years: 30.00 Smoking status: Current every day smoker Tobacco type: cigarettes Alcohol intake: current Alcohol use details: occasional Substance use: never Do You Feel Safe in your Home?: Yes Lack of Transportation: No Lack of Food: Never True Current Housing: I Have Housing Concerned About Future Housing: No Difficulty Paying Gas/Electric Bills: No Difficulty Paying for Meds: No Currently Unemployed: Decline to Answer Education: Decline to Answer Difficulty w/ Childcare or Family Care: Decline to Answer Living arrangements: alone Occupation/Education: retired Spiritual care concerns: No <Lachelle Nation PA-C - Last Filed: 02/15/25 14:59> Exam 2 Narrative: GENERAL: Well-appearing, well-nourished, and in no acute distress. HEAD: Normocephalic, atraumatic. EYES: EOMI. ENT: Nares clear, no rhinorrhea or epistaxis. Mucous membranes moist. Oropharynx without tonsillar hypertrophy exudate or other lesions. NECK: Supple. No adenopathy or masses. CHEST: Clear to auscultation. No respiratory distress. No wheezes rales or rhonchi HEART: Regular rate and rhythm. No murmur heard. Normal peripheral pulses. ABDOMEN: Soft, nondistended EXTREMITIES: Normal range of motion. Edema to the bilateral lower extremities (L>R). Normal DP pulses SKIN: Warm, dry, no rash. NEURO: No focal deficits. Alert and oriented x3. PSYCH: Normal mood and affect <Lachelle Nation PA-C - Last Filed: 02/15/25 14:59> Course Course Emergency Course: I did consult our hospitalist for admission. Recommend consult with vascular surgery to see if patient would be a candidate for intervention <JIM Berry Last Filed: 02/15/25 14:59> AIRPLANE CHARTER CLERK/PA Physician Supervision I agree with midlevel documentation; I performed the medical decision making component of this evaluation. I had independent ryuh-ki-gubk time with the patient and performed my own independent evaluation and assessment. Patient has extensive clot burden both in her left lower extremity and the pulmonary vasculature. Left pulmonary artery, right pulmonary artery are occluded all way to the segmental arteries. No saddle embolism. No evidence of CT evidence of heart strain but she does have elevated BNP at 3600. Negative troponin, no EKG evidence of ischemia. Patient is asymptomatic at this time but states that she gets very short of breath and winded with minimal exertion. No signs of heart failure. Vital signs remained hemodynamically stable. She is awaiting transfer to the [facility] System and mobile where she was accepted. Throughout the shift patient remains stable but was complain of some shortness of breath and back pain. She was given Sneads for this. She remains on heparin at this time. I recall the [facility] system and given the update. Given that she is accepted to [facility] but they do not have IR capabilities they would like to see if she would go to [place] instead. [facility] given her hemodynamic stability. Patient throughout her shift started developing ectopy on her EKG and monitor with including bigeminy briefly and frequent PVCs. She was evaluated and complaints shortness a breath but remained on normal 98% room air. No tachycardia. Normal blood pressure. I discussed the case with the next transfer system at the [facility] and spoke to the smoking tobacco packer hand Dr. Li, who after we went over patient's clinical exam and history thought she did not meet ICU criteria recommended admission to Medicine with Cardiology consult. Discussed the case with the Medicine team Dr. Sanchez who accepted the patient as a step-down unit transfer. ALS ambulance was arranged. Patient remains on heparin and him back to stable at this time. Awaiting transfer. <Lachelle Nation PA-C - Last Filed: 02/15/25 14:59> I agree with midlevel documentation; I performed the medical decision making component of this evaluation. I had independent ioht-pw-mkit time with the patient and performed my own independent evaluation and assessment. Patient has extensive clot burden both in her left lower extremity and the pulmonary vasculature. Left pulmonary artery, right pulmonary artery are occluded all way to the segmental arteries. No saddle embolism. No evidence of CT evidence of heart strain but she does have elevated BNP at 3600. Negative troponin, no EKG evidence of ischemia. Patient is asymptomatic at this time but states that she gets very short of breath and winded with minimal exertion. No signs of heart failure. Vital signs remained hemodynamically stable. She is awaiting transfer to the [facility] System and mobile where she was accepted. Throughout the shift patient remains stable but was complain of some shortness of breath and back pain. She was given Sneads for this. She remains on heparin at this time. I recall the [facility] system and given the update. Given that she is accepted to [facility] but they do not have IR capabilities they would like to see if she would go to [place] instead. I discussed the case with the [place] hospitalist team who declined transfer given her hemodynamic stability. Patient throughout her shift started developing ectopy on her EKG and monitor with including bigeminy briefly and frequent PVCs. She was evaluated and complaints shortness a breath but remained on normal 98% room air. No tachycardia. Normal blood pressure. I discussed the case with the next transfer system at the [facility] and spoke to the smoking tobacco packer hand Dr. Li who after we went over patient's clinical exam and history thought she did not meet ICU criteria recommended admission to Medicine with Cardiology consult. Discussed the case with the Medicine team Dr. Sanchez who accepted the patient as a step- down unit transfer. ALS ambulance was arranged. Patient remains on heparin and him back to stable at this time. Awaiting transfer. <Saji Gallegos MD - Last Filed: 02/14/25 21:51> Consultations Consultation #1: Spoke with vascular surgery at [facility]. Unable to say thus far is patient would be a candidate for procedure. They would be happy to evaluate the patient for such Spoke with hospitalist at [facility] who accepts patient as transfer < Lachelle Nation PA-C - Last Filed: 02/15/25 14:59> Date: 02/14/25 <Lachelle Nation PA-C - Last Filed: 02/15/25 14:59> Vital Signs Vital signs: Vital Signs Temperature 97.6 F 02/14/25 08:18 Pulse Rate 96 02/14/25 08:18 Respiratory Rate 20 02/14/25 08:18 Pulse Oximetry 95 02/14/25 08:18 Oxygen Delivery Room Air 02/14/25 08:18 Temperature 98.2 F 02/14/25 23:15 Pulse Rate 71 02/14/25 23:15 Respiratory Rate 24 H 02/14/25 23:15 Blood Pressure 112/56 L 02/14/25 23:00 Pulse Oximetry 93 02/14/25 23:15 Oxygen Delivery Room Air 02/14/25 08:18 <Lachelle Nation PA-C - Last Filed: 02/15/25 14:59> Vital Signs Temperature 97.6 F 02/14/25 08:18 Pulse Rate 96 02/14/25 08:18 Respiratory Rate 20 02/14/25 08:18 Pulse Oximetry 95 02/14/25 08:18 Oxygen Delivery Room Air 02/14/25 08:18 Temperature 98.2 F 02/14/25 23:15 Pulse Rate 71 02/14/25 23:15 Respiratory Rate 24 H 02/14/25 23:15 Blood Pressure 112/56 L 02/14/25 23:00 Pulse Oximetry 93 02/14/25 23:15 Oxygen Delivery Room Air 02/14/25 08:18 <Saji Gallegos MD - Last Filed: 02/14/25 21:51> MDM - SOB/Dyspnea Differential Diagnosis Differential diagnosis: Likely acute exacerbation of chronic obstructive airways disease, congestive heart failure, community acquired pneumonia and pulmonary embolism < Lachelle Nation PA-C - Last Filed: 02/15/25 14:59> Lab Data Attestation: I reviewed the patient's lab results. <Lachelle Nation PA-C - Last Filed: 02/15/25 14:59> Result diagrams: 02/14/25 08:30 02/14/25 08:30 <JIM Berry Last Filed: 02/15/25 14:59> Labs: Lab Results 02/14/25 02/14/25 02/14/25 Range/Units 08:30 11:03 16:16 WBC 9.4 (4.5-10.0) K/mm3 RBC 4.75 (4.2-5.4) M/mm3 Hgb 13.9 (12.0-15.0) g/dL Hct 43.7 (37.0-47.0) % MCV 92.0 (80-100) fl MCH 29.3 (26-34) pg MCHC 31.8 L (32-36) g/dl RDW 13.2 (11.5-14.5) % Plt Count 234 (150-375) k/mm3 MPV 9.7 (7.4-10.4) fl Immature Gran % (Auto) 0.3 (0-0.5) % Neut % (Auto) 74.0 H (45.5-73.1) % Lymph % (Auto) 14.5 L (18.3-44.2) % [place] % (Auto) 9.6 H (2.6-8.5) % Eos % (Auto) 1.1 (0-4.4) % Baso % (Auto) 0.5 (0.2-1.2) % Lymph # (Auto) 1.36 (0.9-3.2) K/mm3 [place] # (Auto) 0.9 H (0.1-0.6) K/mm3 Eos # (Auto) 0.1 (0-0.3) K/mm3 Baso # (Auto) 0.1 (0.0-0.1) K/mm3 Abs Immat Gran (auto) 0.03 (0.00-0.031) K/mm3 Absolute Neuts (auto) 7.0 H (1.3-6.7) K/mm3 Absolute Nucleated RBC 0.000 (0.0-0.012) K/mm3 Nucleated RBC % 0.0 (0.0-0.2) % PT 14.3 (11.1-14.7) Seconds INR 1.1 APTT 26.7 (22.3-36.8) Seconds Sodium 139 (137-145) mmol/L Potassium 3.9 (3.4-5.0) mmol/L Chloride 104 (98-107) mmol/L Carbon Dioxide 28 (22-30) mmol/L Anion Gap 7 (4-12) mmol/L BUN 13 D (7-17) mg/dL Creatinine 0.77 (0.7-1.0) mg/dL Estim Creat Clear Calc 64 ml/min Estimated GFR > 60 (59 - ) Glucose 99 (65-110) mg/dL POC Capillary Glucose 97 (65-105) mg/dl Lactic Acid (0.7-2.0) mmol/L Calcium 8.9 (8.4-10.2) mg/dL Total Bilirubin 0.9 (0.2-1.3) mg/dL AST 19 (14-36) U/L ALT 23 (6-35) U/L Alkaline Phosphatase 86 (38-126) U/L Troponin I < 0.012 (0.000-0.034) ng/mL NT-Pro-B Natriuret Pep 3620 H (19.9-100) pg/mL Total Protein 7.0 (6.3-8.2) g/dL Albumin 3.9 (3.5-5.1) g/dL Influenza A (RT-PCR) Negative (Negative) Influenza B (RT-PCR) Negative (Negative) RSV (RT-PCR) Negative (Negative) SARS-CoV-2 RNA (RT-PCR) Negative (Negative) 02/14/25 02/14/25 Range/Units 17:30 22:17 WBC (4.5-10.0) K/mm3 RBC (4.2-5.4) M/mm3 Hgb (12.0-15.0) g/dL Hct (37.0-47.0) % MCV (80-100) fl MCH (26-34) pg MCHC (32-36) g/dl RDW (11.5-14.5) % Plt Count (150-375) k/mm3 MPV (7.4-10.4) fl Immature Gran % (Auto) (0-0.5) % Neut % (Auto) (45.5-73.1) % Lymph % (Auto) (18.3-44.2) % [place] % (Auto) (2.6-8.5) % Eos % (Auto) (0-4.4) % Baso % (Auto) (0.2-1.2) % Lymph # (Auto) (0.9-3.2) K/mm3 [place] # (Auto) (0.1-0.6) K/mm3 Eos # (Auto) (0-0.3) K/mm3 Baso # (Auto) (0.0-0.1) K/mm3 Abs Immat Gran (auto) (0.00-0.031) K/mm3 Absolute Neuts (auto) (1.3-6.7) K/mm3 Absolute Nucleated RBC (0.0-0.012) K/mm3 Nucleated RBC % (0.0-0.2) % PT 15.1 H (11.1-14.7) Seconds INR 1.1 APTT 95.7 H (22.3-36.8) Seconds Sodium (137-145) mmol/L Potassium (3.4-5.0) mmol/L Chloride (98-107) mmol/L Carbon Dioxide (22-30) mmol/L Anion Gap (4-12) mmol/L BUN (7-17) mg/dL Creatinine (0.7-1.0) mg/dL Estim Creat Clear Calc ml/min Estimated GFR (59 - ) Glucose (65-110) mg/dL POC Capillary Glucose (65-105) mg/dl Lactic Acid 1.1 (0.7-2.0) mmol/L Calcium (8.4-10.2) mg/dL Total Bilirubin (0.2-1.3) mg/dL AST (14-36) U/L ALT (6-35) U/L Alkaline Phosphatase (38-126) U/L Troponin I < 0.012 (0.000-0.034) ng/mL NT-Pro-B Natriuret Pep (19.9-100) pg/mL Total Protein (6.3-8.2) g/dL Albumin (3.5-5.1) g/dL Influenza A (RT-PCR) (Negative) Influenza B (RT-PCR) (Negative) RSV (RT-PCR) (Negative) SARS-CoV-2 RNA (RT-PCR) (Negative) <Lachelle Nation PA-C - Last Filed: 02/15/25 14:59> Lab Results 02/14/25 02/14/25 02/14/25 Range/Units 08:30 11:03 16:16 WBC 9.4 (4.5-10.0) K/mm3 RBC 4.75 (4.2-5.4) M/mm3 Hgb 13.9 (12.0-15.0) g/dL Hct 43.7 (37.0-47.0) % MCV 92.0 (80-100) fl MCH 29.3 (26-34) pg MCHC 31.8 L (32-36) g/dl RDW 13.2 (11.5-14.5) % Plt Count 234 (150-375) k/mm3 MPV 9.7 (7.4-10.4) fl Immature Gran % (Auto) 0.3 (0-0.5) % Neut % (Auto) 74.0 H (45.5-73.1) % Lymph % (Auto) 14.5 L (18.3-44.2) % [place] % (Auto) 9.6 H (2.6-8.5) % Eos % (Auto) 1.1 (0-4.4) % Baso % (Auto) 0.5 (0.2-1.2) % Lymph # (Auto) 1.36 (0.9-3.2) K/mm3 [place] # (Auto) 0.9 H (0.1-0.6) K/mm3 Eos # (Auto) 0.1 (0-0.3) K/mm3 Baso # (Auto) 0.1 (0.0-0.1) K/mm3 Abs Immat Gran (auto) 0.03 (0.00-0.031) K/mm3 Absolute Neuts (auto) 7.0 H (1.3-6.7) K/mm3 Absolute Nucleated RBC 0.000 (0.0-0.012) K/mm3 Nucleated RBC % 0.0 (0.0-0.2) % PT 14.3 (11.1-14.7) Seconds INR 1.1 APTT 26.7 (22.3-36.8) Seconds Sodium 139 (137-145) mmol/L Potassium 3.9 (3.4-5.0) mmol/L Chloride 104 (98-107) mmol/L Carbon Dioxide 28 (22-30) mmol/L Anion Gap 7 (4-12) mmol/L BUN 13 D (7-17) mg/dL Creatinine 0.77 (0.7-1.0) mg/dL Estim Creat Clear Calc 64 ml/min Estimated GFR > 60 (59 - ) Glucose 99 (65-110) mg/dL POC Capillary Glucose 97 (65-105) mg/dl Lactic Acid (0.7-2.0) mmol/L Calcium 8.9 (8.4-10.2) mg/dL Total Bilirubin 0.9 (0.2-1.3) mg/dL AST 19 (14-36) U/L ALT 23 (6-35) U/L Alkaline Phosphatase 86 (38-126) U/L Troponin I < 0.012 (0.000-0.034) ng/mL NT-Pro-B Natriuret Pep 3620 H (19.9-100) pg/mL Total Protein 7.0 (6.3-8.2) g/dL Albumin 3.9 (3.5-5.1) g/dL Influenza A (RT-PCR) Negative (Negative) Influenza B (RT-PCR) Negative (Negative) RSV (RT-PCR) Negative (Negative) SARS-CoV-2 RNA (RT-PCR) Negative (Negative) 02/14/25 02/14/25 Range/Units 17:30 22:17 WBC (4.5-10.0) K/mm3 RBC (4.2-5.4) M/mm3 Hgb (12.0-15.0) g/dL Hct (37.0-47.0) % MCV (80-100) fl MCH (26-34) pg MCHC (32-36) g/dl RDW (11.5-14.5) % Plt Count (150-375) k/mm3 MPV (7.4-10.4) fl Immature Gran % (Auto) (0-0.5) % Neut % (Auto) (45.5-73.1) % Lymph % (Auto) (18.3-44.2) % [place] % (Auto) (2.6-8.5) % Eos % (Auto) (0-4.4) % Baso % (Auto) (0.2-1.2) % Lymph # (Auto) (0.9-3.2) K/mm3 [place] # (Auto) (0.1-0.6) K/mm3 Eos # (Auto) (0-0.3) K/mm3 Baso # (Auto) (0.0-0.1) K/mm3 Abs Immat Gran (auto) (0.00-0.031) K/mm3 Absolute Neuts (auto) (1.3-6.7) K/mm3 Absolute Nucleated RBC (0.0-0.012) K/mm3 Nucleated RBC % (0.0-0.2) % PT 15.1 H (11.1-14.7) Seconds INR 1.1 APTT 95.7 H (22.3-36.8) Seconds Sodium (137-145) mmol/L Potassium (3.4-5.0) mmol/L Chloride (98-107) mmol/L Carbon Dioxide (22-30) mmol/L Anion Gap (4-12) mmol/L BUN (7-17) mg/dL Creatinine (0.7-1.0) mg/dL Estim Creat Clear Calc ml/min Estimated GFR (59 - ) Glucose (65-110) mg/dL POC Capillary Glucose (65-105) mg/dl Lactic Acid 1.1 (0.7-2.0) mmol/L Calcium (8.4-10.2) mg/dL Total Bilirubin (0.2-1.3) mg/dL AST (14-36) U/L ALT (6-35) U/L Alkaline Phosphatase (38-126) U/L Troponin I < 0.012 (0.000-0.034) ng/mL NT-Pro-B Natriuret Pep (19.9-100) pg/mL Total Protein (6.3-8.2) g/dL Albumin (3.5-5.1) g/dL Influenza A (RT-PCR) (Negative) Influenza B (RT-PCR) (Negative) RSV (RT-PCR) (Negative) SARS-CoV-2 RNA (RT-PCR) (Negative) <Saji Gallegos MD - Last Filed: 02/14/25 21:51> Imaging Data Radiologist's impression: ITS Impressions Chest X-Ray 02/14/25 09:14 IMPRESSION: 1. No acute cardiopulmonary disease. Chest CTA 02/14/25 11:07 Impression: Extensive bilateral pulmonary emboli, as detailed above. No evidence for right heart strain. No saddle embolus. Case discussed with ANA Nation at the time of this reading. Venous Doppler Study 02/14/25 11:27 IMPRESSION: 1. Extensive deep venous fibrosis extending from the proximal left femoral vein through the posterior tibial and peroneal veins at the calf. Dr. Medina discussed these findings with Dr. Nation at 11:30 AM. <Lachelle Nation PA-C - Last Filed: 02/15/25 14:59> Critical Care Time Critical Care Time Critical Care Time: Yes <Lachelle Nation PA-C - Last Filed: 02/15/25 14:59> Yes <Saji Gallegos MD - Last Filed: 02/14/25 21:51> Total Critical Care Time: 35 <Lachelle Nation PA-C - Last Filed: 02/15/25 14:59> 90 <Saji Gallegos MD - Last Filed: 02/14/25 21:51> Discharge Plan Discharge Clinical Impression: Bilateral pulmonary embolism, Acute dyspnea Acute deep vein thrombosis (DVT) of left lower extremity Qualifiers: Affected thrombotic vein of extremity: femoral Qualified Code(s): I82.412 - Acute embolism and thrombosis of left femoral vein <Lachelle Nation PA-C - Last Filed: 02/15/25 14:59> Patient Disposition: [facility] <Lachelle Nation PA-C - Last Filed: 02/15/25 14:59> Condition: Serious <Lachelle Nation PA-C - Last Filed: 02/15/25 14:59> Patient Language: Puerto Rican <Lachelle Nation PA-C - Last Filed: 02/15/25 14:59> Prescriptions: No Action omeprazole 40 mg capsule,delayed release(DR/EC) 40 mg PO QAM valsartan 40 mg tablet 40 mg PO QAM hydrochlorothiazide 12.5 mg capsule 12.5 mg PO QAM lovastatin 20 mg tablet 20 mg PO DAILY naproxen sodium [Aleve] 220 mg capsule 440 mg PO Q12H PRN (Reason: back pain) levetiracetam [Keppra] 750 mg tablet 750 mg PO Q12H Qty: 60 6RF citalopram 20 mg tablet 20 mg PO QAM metformin 500 mg tablet 500 mg PO QAM albuterol sulfate 90 mcg/actuation HFA aerosol inhaler 2 puff INHALATION Q4-6H PRN (Reason: Dyspnea) albuterol sulfate 1.25 mg/3 mL Solution For Nebulization 1.25 mg INHALATION Q4H PRN (Reason: Dyspnea) <Lachelle Nation PA-C - Last Filed: 02/15/25 14:59> Follow-up/Referrals: Azeb,JIM Gutierrez [Primary Care Provider] - <Lachelle Nation PA-C - Last Filed: 02/15/25 14:59> Time of Disposition: 21:51 <Lachelle Nation PA-C - Last Filed: 02/15/25 14:59> 21:51 <Saji Gallegos MD - Last Filed: 02/14/25 21:51>
[2025-02-14] MEDS: HEPARIN SODIUM 5,000 UNITS/ML VIAL 5500 UNITS IV PUSH (11:30)
[2025-02-14] MEDS: HEPARIN SOD/D5W 100 UNITS/ML 25,000 UNITS/250 ML BAG 12 UNITS IV CONT (11:30)
[2025-02-14 11:43] LABS: Influenza A QL RT-PCR Negative (Negative); Influenza B QL RT-PCR Negative (Negative); RSV RNA, RT-PCR Negative (Negative); SARS-CoV-2 RNA PCR Negative (Negative)
--- NOTE | 2025-02-14 14:24 | PC.NURSE ---
Patient to go to [facility]. Waiting for a bed at this time
--- NOTE | 2025-02-14 14:24 | PC.NURSE ---
Spoke with [facility] transfer line - gave update - waiting for a bed - States pt going to [facility] in [facility]
--- NOTE | 2025-02-14 15:22 | PC.NURSE ---
Purewick placed on patient for comfort Food tray ordered
--- NOTE | 2025-02-14 16:17 | PC.NURSE ---
bedside glucose 97. RN Tabby aware.
[2025-02-14 16:19] LABS: Glucose Point of Care 97 mg/dl (65-105)
[2025-02-14 17:47] LABS: INR 1.1; Prothrombin Time 15.1 Seconds (11.1-14.7)
[2025-02-14 17:49] LABS: Partial Thromboplastin Time 95.7 Seconds (22.3-36.8)
--- NOTE | 2025-02-14 20:24 | ECG_ITS ---
Test Date: 2025-02-14 20:31:22 Measurements Intervals [place] Rate: 86 P: 62 UT: 157 QRS: -43 QRSD: 95 T: -48 QT: 399 QTc: 478 Interpretive Statements SINUS RHYTHM WITH FREQUENT VENTRICULAR PREMATURE COMPLEXES LEFT AXIS DEVIATION INCOMPLETE RIGHT BUNDLE BRANCH BLOCK DELAYED PRECORDIAL R/S TRANSITION MODERATE T-WAVE ABNORMALITY, CONSIDER ANTERIOR ISCHEMIA BASELINE ARTIFACT- I, II, AVR, AVL ABNORMAL ECG Compared to ECG 02/14/2025 08:27:06 FREQUENT VENTRICULAR PREMATURE COMPLEXES NOW PRESENT Electronically Signed On 02-15-2025 05:18:35 CDT by Donadl Laird D.O.
[2025-02-14] MEDS: HYDROcodone/acetaminophen (*CRX) 5-325 MG TABLET 1 TAB PO (21:02)
--- NOTE | 2025-02-14 21:16 | PC.NURSE ---
Pt c/o of severe lower back pain from stretcher. Pain pill was given, hospital bed replaced stretcher with chemical plant technical director. Pt positioned on right side for comfort.
--- NOTE | 2025-02-14 22:09 | PC.NURSE ---
Transfer center called, requesting for new trop to done on pt prior to transfer to facility. RN states a positive trop could possibly mean the pt would go ICU instead of stepdown. ERP Dr Roque made aware of request for new trop.
--- NOTE | 2025-02-14 22:12 | PC.NURSE ---
[facility] called back, wanting a lactic acid as well. ERP Dr Arnold made aware and agreed.
[2025-02-14 22:42] LABS: Lactic Acid Reflex 1.1 mmol/L (0.7-2.0)
[2025-02-14 23:02] LABS: Troponin I < 0.012 ng/mL (0.000-0.034)
== END 2025-02-14 23:28 | disposition short-term general hospital (02) ==
PROVIDERS: Emergency Medicine; Emergency Provider Physician Assistant; PCP Physician Assistant
DX: I82.412 Acute embolism and thrombosis of left femoral vein (principal); I26.99 Other pulmonary embolism without acute cor pulmonale; R06.00 Dyspnea, unspecified; Z20.822 Contact with and (suspected) exposure to COVID-19; F17.210 Nicotine dependence, cigarettes, uncomplicated; G47.30 Sleep apnea, unspecified; J44.9 Chronic obstructive pulmonary disease, unspecified; E11.9 Type 2 diabetes mellitus without complications; E78.5 Hyperlipidemia, unspecified; I10 Essential (primary) hypertension; G40.909 Epilepsy, unspecified, not intractable, without status epilepticus; Z79.84 Long term (current) use of oral hypoglycemic drugs; R94.31 Abnormal electrocardiogram [ECG] [EKG]
CPT/HCPCS: 36415; 71046; 71275; 80053; 82948; 83605; 83880; 84484; 85025; 85610; 85730; 87637; 93005; 93970; 96365; 96366; 96375; 99291; A9270; J1644; Q9967

== ENCOUNTER 2025-02-27 07:10 | Outpatient (CLI) | payer MEDICARE, SELFPAY ==
--- OUTSIDE RECORDS SUMMARY | 2025-02-27 07:13 | XMS_ITS | Data Portability ---
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 Hopefully that will [...] more than half the time spent in fybb-fu-eacy care. Not available 07/30/2023 09:36:56 08/27/2023 08/27/2023 [...] more than half the time spent in iazd-vs-igtq care. 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 Imaging XR, foot 2023 024 [facility] [place], [address], [place], [address], 4 18:27:48 XR, foot 2022 023 [email or web address] [facility] [place], [address], [place], [address], 3 16:04:53 XR, foot 2022 023 [facility] [place], [address], [place], [address], 3 10:07:11 MAMMO, screening, digital, bilateral 2022 023 [email or web address] Not available 4 10:21:20 LDCT, chest, for lung cancer screening - no auth required 2022 023 DUC Not available 3 10:32:55 Medication Orders nystatin 100,000 unit/gram topical cream 2022 023 [facility] [place], [address], 3 11:01:24 triamcinolo ne acetonide 0.1 % topical cream 2022 023 [facility] [address] [place], [address], 3 11:01:27 doxycycline hyclate 100 mg tablet [address] [facility] [address] [place], [address], 3 08:55:18 prednisone 20 mg tablet [address] [facility] [address] [place], [address], 3 08:55:27 ergocalcife rol (vitamin D2) 1,250 mcg (50,000 unit) capsule 2022 023 [facility] [address] [place], [address], 3 11:01:27 Patient TargetsNo targets recorded. Patient Instructions Encounter Date Encounter Id Patient Instructions Last Modified By Organization Details Last Modified Time 07/19/2023 [id number] dementia rating scale-2* [email or web address] Not available 07/19/2023 11:11:55 multi-dimensiona health assessment questionnaire* [email or web address] Not available 07/19/2023 11:12:00 care plan* [email or web address] Not available 11:11:51 advance directiv es: care instructions Not available 07/19/2023 11:01:17 advance care planning: care instructions Not available 07/19/2023 11:01:17 [place] Advance Directives Not available 07/19/2023 11:01:17 Personalized [...] Screening: Your next PAP/pelvic in: Referral to lens finisher Osteoporosis Screening: Date Screening Last Performed: Colon Cancer Screening: Colonoscopy Date Screening Last Performed: Eye Disease Screening: Ordered Recommended today Dementia Risk: Low Depression Screening: Negative Positive Active diagnosis, Continue current treatment plan Not available 07/20/2023 14:20:00 Reason for Referral Multicultural Manager Referral for Po stmenopausal bleeding no referral required Referring Physician: Brenda Bowie, Internal Medicine, Encounter Date: 07/19/2023 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 Referring Physician: Brenda Bowie, Internal Medicine, Encounter Date: 09/02/2023 Results Created Date Observation Date Name Description Value Unit Range Abnormal Flag Note LastModifiedBy Organization Detail LastModifiedTime 06/23/20 23 XR, knee No observ ation record ed. [email or web address] [facility] [place] [address], [place], [address], 06/23/2023 09:02:56 07/02/20 XR, foot No observ ation record ed. [facility] [place] [address], [address], 07/05/2023 14:33:19 07/30/20 XR, foot No observ ation record ed. [facility] [place] [address], [place], [address], 07/30/2023 09:38:31 08/06/2008/06/2023 LDCT, chest , for lung cance r maranda spears No observ ation record ed. [address], [place], [address], 09/02/2023 11:51:49 08/06/2008/06/2023 MAMMO , maranda spears, digit al, bilat eral No observ ation record ed. Not Available 2022 11:51:53 08/24/2008/24/2023 US, liver No observ ation record ed. [facility] [address] [place], [address], 09/02/2023 15:46:10 08/27/20 XR, foot No observ ation record ed. [facility] [place] [address], [place], [address], 09/06/2023 15:42:20 01/03/20 24 XR, foot No observ ation record ed. [facility] [place] [address], [place], [address], 01/03/2024 16:49:52 Result Notes None recorded. 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 490590989 Active 2022 Not Available [facility] 3 16:25:57 Pruritic rash 34656094 Active 2022 Not Available [facility] 3 16:25:58 Pain in left foot 15538917987 9107 Active 2022 Not Available [facility] 3 16:25:57 Vitamin D deficienc y 22364149 Active 2022 Not Available [facility] 3 16:25:57 Osteoporo sis 91584207 Active 2022 Not Available [facility] 3 16:25:58 Closed fracture of metatarsa l bone 46865778 Active 2022 Not Available [facility] 3 16:25:57 Closed fracture of metatarsa l bone 83226855 Active 2022 Jen Rider CMA null, [employer] [facility] [employer] [facility] 3 11:57:41 Osteoarth ritis of right knee joint 20498741914 9100 Active 2022 ZEINAB Garcia null, [employer] [facility] 3 08:32:21 Smoker 90065248 Active 2022 ANA Wilson [address], [address], [place], [address] , [employer] [facility] [employer] [facility] 3 10:56:02 Postmenop ausal bleeding 88762193 Active 2022 ANA Wilson [address], [address], [place], [address] , [facility] [employer] [facility] 3 10:58:21 Acute dermatiti s 96133072 Active 2022 ANA Wilson [address], [address], [place], [address] , [place] [facility] [employer] [facility] 3 10:59:16 Liver enzymes level above reference range 248626148 Active 2022 ANA Wilson [address], [address], [place], [address] , [place] [facility] [employer] 3 13:37:43 Ground glass opacity Active 2022 ANA Wilson [address], [address], [place], [address] , [place] [facility] [employer] 3 11:53:16 Steatotic liver disease 709265878 Active 2022 ANA Wilson [address], [address], [place], [address] , [place] [facility] [employer] [facility] 3 11:55:36 Generaliz ed abdominal pain 673011623 Active 2021 Not Available [facility] 3 16:25:57 Disorder of shoulder 823261767 Active Not Available [facility] 3 16:25:57 Benign essential hypertens ion 3742513 Active 2021 Not Available [facility] 3 16:25:57 Fracture of bone 940229841 Active Not Available [facility] 3 16:25:57 Disorder of trunk 236032643 Active Not Available [facility] 3 16:25:57 Seizure disorder 300874993 Active 2021 Not Available [facility] 3 16:25:57 Hyperchol esterolem ia 32355268 Active 2016 Not Available [facility] 3 16:25:57 Chronic obstructi ve pulmonary disease 74801086 Active 2021 Not Available [facility] 3 16:25:57 Pain of right shoulder joint 30109871102 164007 Active 2021 Not Available [facility] 3 16:25:57 Pain of joint of wrist 793055989 Active Not Available [facility] 3 16:25:57 Partial thickness rotator cuff tear 069359981 Active Not Available [facility] 3 16:25:57 Osteoarth ritis of joint of hand 04422681 Active Not Available [facility] 3 16:25:57 Gastroeso phageal reflux disease 857423793 Active 2019 Not Available [facility] 3 16:25:57 Osteoarth ritis of hip 259764829 Active Not Available [facility] 3 16:25:57 Osteoarth ritis of knee 775580419 Active Not Available [facility] 3 16:25:57 Shoulder joint pain 093016309 Active Not Available [facility] 3 16:25:57 Syncope 441238198 Active 2021 Not Available [facility] 3 16:25:57 Family history of malignant neoplasm 644810871 Active 2016 Not Available [facility] 3 16:25:57 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 17899318 Active Not Available [facility] 3 16:25:57 Tear of medial meniscus of knee 982767195 Active 2021 Not Available [facility] 3 16:25:57 Pain in pelvis 82416519 Active 2021 Not Available [facility] 3 16:25:57 Enthesopa thy of hip region 14193844 Active Not Available [facility] 3 16:25:57 Pain of left hip joint 14914284123 9100 Active 2021 Not Available [facility] 3 16:25:57 Depressiv e disorder 92106735 Active 2021 Not Available [facility] 3 16:25:57 Hypertens edu disorder 84993283 Active 2016 Not Available [facility] 3 16:25:57 Osteoarth ritis 169665079 Active Not Available [facility] 3 16:25:57 Periphera l vascular disease 889637942 Active 2021 Not Available [facility] 3 16:25:58 Hypothyro idism 69295405 Active 2021 Not Available [facility] 3 16:25:58 Hypokalem ia 65244830 Active 2021 Not Available [facility] 3 16:25:58 Tubular adenomato us polyp of colon 986877992 Active 2021 colonosco py done 12/17/21- she had a >1 cm tubular adenoma at the distal ascending colon that was referred to [facility] Not Available [facility] 3 16:25:58 Pain of right knee joint 50539047709 4100 Active 2021 Not Available [facility] 3 16:25:58 Pain of hip region 15279816 Active Not Available [facility] 3 16:25:58 Candidias is of skin 43317499 Active 2021 Not Available [facility] 3 16:25:58 Hyperlipi demia 93385288 Active 2021 Not Available [facility] 3 16:25:58 Candidias is of mouth 95474223 Active 2021 Not Available [facility] 3 16:25:58 Impaired glucose tolerance 9529248 Active 2021 Not Available [facility] 3 16:25:58 Notes:Some problems listed i n Document: #[id number] could not be added to this patient's chart. Please review this document and add these problems to the patient's chart manually as needed. Problem Notes None recorded. Procedures Surgical History Date Name Laterality Status Provider Name and Address Organization Details Recorded Time 07/19/20 Medicare Wellness CPT Code, subsequent completed RADHA Jones [employer] [facility] 07/19/2023 10:27:11 04/09/20 Most Recent Bone Density completed ZEINAB Bhardwaj [employer] [facility] 07/16/2023 12:11:34 08/14/20 Date of Last Mammogram completed ZEINAB Bhardwaj [place] [employer] [facility] 07/16/2023 12:11:41 04/15/20 22 Date of Last Colonoscopy completed Not Available [facility] 12/23/2022 04:42:07 10/25/19 15 Total hip arthroplasty completed Not Available [facility] 12/23/2022 04:42:13 10/25/19 13 Total hip arthroplasty completed Not Available [facility] 12/23/2022 04:42:13 Ablation completed Not Available [facility] 04:42:13 Imaging Results Imaging Date Name Status LastModified by Organiz ation Details LastModified Time 06/23/2023 XR, knee completed [email or web address] [facility] [place] [address], [place], [address], 06/23/2023 09:02:56 07/02/2023 XR, foot completed [facility] [place] [address], [place], [address], 07/05/2023 14:33:19 07/30/2023 XR, foot completed [facility] [place] [address], [place], [address], 07/30/2023 09:38:31 08/06/2023 LDCT, chest, for lung cancer screening completed [address] [place], [address], 09/02/2023 11:51:49 08/06/2023 MAMMO, screening, digital, bilateral completed Information not available 09/02/2023 11:51:53 08/24/2023 US, liver completed [facility] [address] [facility] [place], [address], 09/02/2023 15:46:10 08/27/2023 XR, foot completed [facility] [place] [address], [place], [address], 09/06/2023 15:42:20 01/03/2024 XR, foot completed [facility] [place] [address], [place], [address], 01/03/2024 16:49:52 Procedure Notes None recorded. Medical [...] suspension for injection in office 07/16 completed [facility]: 0003- 0494- 20 Not Available Not Available [...] administe red by the provider 02/26 completed [facility]: 0409- 4276- 17 Not Available Not Available [...] %) injection solution in office 09/01 completed [facility] [address]43 -064- 01 Not Available Not Available Not [...] Not Available Not Available Not Available [facility] 2088-2412 (PF) 45 mcg (15 mcg x 3)/0.5 mL IM syringe 11/13 completed Not Available Not Available Not Available Vitals Date Recorded Body height Body mass index (BMI) Body weight Body temperature Heart rate Oxygen saturation Oxygen saturation in Arterial blood by Pulse oximetry Systolic blood pressure Diastolic blood pressure Provider Name and Address Organization Details Last Updated DateTime 3 160.02 cm 31.9 kg/m2 75072.6 3 g 98.1 [degF] 83 /min 97 % 97 % 132 mm[Hg] 80 mm[Hg] April Kapaln RN [facility] [employer] [facility] 3 10:33:49 Date Recorded Body height Provider Name an d Address Organization Details Last Updated DateTime 07/30/2023 160.02 cm Gayla Leal [facility] 07/30/2023 08:51:36 Date Recorded Body height Provider [...] 3 160.02 cm 97.2 [degF] 33 kg/m2 89602.9 8 g 64 /min 16 /min 93 % 93 % 130 mm[Hg] 80 mm[Hg] Lenore Santo [facility] [employer] [facility] 3 11:28:59 Date Recorded Body height Provider Name an d Address Organization Details Last Updated DateTime 01/03/2024 160.02 cm aGyla Leal [facility] 01/03/2024 14:20:57 Social History Question Answer Notes LastModified by Organizat ion Details LastModified Time Tobacco Smoking Status Current Every Day Smoker Not Available [facility] 12/23/2022 04:06:30 Do You Have An Advance Directive? Yes MIGRATION.92524 38787 Information not available 12/23/2022 What Is Your Level Of Alcohol Consumption? None MIGRATION.54862 99828 Information not available 12/23/2022 Are You Blind Or Do You Have Difficulty Seeing? Yes MIGRATION.34297 08641 Information not available 12/23/2022 What Is Your Level Of Caffeine Consumption? Occasional MIGRATION.13847 53343 Information not available 12/23/2022 How Much Tobacco Do You Chew? None MIGRATION.38398 20214 Information not available 12/23/2022 In The 14 Days Before Symptom Onset, Have You Had Close Contact With A Laboratory-confir med COVID-19 While That Case Was Ill? No MIGRATION.70534 84979 Information not available 12/23/2022 In The 14 Days Before Symptom Onset, Have You Had Close Contact With A Person Who Is Under Investigation For COVID-19 While That Person Was Ill? No MIGRATION.46623 53535 Information not available 12/23/2022 Are You Deaf Or Do You Have Serious Difficulty Hearing? Yes MIGRATION.42165 08118 Information not available 12/23/2022 What Type Of Diet Are You Following? REGULAR MIGRATION.55049 82105 Information not available 12/23/2022 Which Illicit Or Recreational Drugs Have You Used? None MIGRATION.06184 57888 Information not available 12/23/2022 Do You Or Have You Ever Used E-cigarettes Or Vape? Never Used Electronic Cigarettes MIGRATION.42959 50254 Information not available 12/23/2022 Have There Been Any Changes To Your Family Or Social Situation? No MIGRATION.93104 97731 Information not available 12/23/2022 Are There Any Guns Present In Your Home? No MIGRATION.15705 58302 Information not available 12/23/2022 Do You Use Insect Repellent Routinely? No MIGRATION.87265 94048 Information not available 12/23/2022 Presence Of Domestic Violence No [email or web address] Information no t available 07/19/2023 Are You Able To Care For Yourself? Yes [email or web address] Information not available 07/19/2023 Are You Blind Or Do Yo Have Difficulty Seeing? Yes Reading Glasses [email or web address] Information not available 07/19/2023 Are You Deaf Or Do You Have Serious Difficulty Hearing? No [email or web address] Information not available 07/19/2023 General Stress Level? Moderate [email or web address] Information not available 07/19/2023 Live Alone Of With Others? Alone [email or web address] Information not available 07/19/2023 Do You Have A Medical Power Of Belt Loop Maker? Yes Good Friend, Gayla Ruiz MIGRATION.33192 71049 Information not available 12/23/2022 What Was The Date Of Your Most Recent Tobacco Screening? 03/05/2021 MIGRATION.25593 80858 Information not available 12/23/2022 Do You Have Any Pets? Yes MIGRATION.66492 78319 Information not available 12/23/2022 What Is Your Relationship Status? Single MIGRATION.21590 18923 Information not available 12/23/2022 Do You Use Your Seat Belt Or Car Seat Routinely? Yes MIGRATION.07765 57747 Information not available 12/23/2022 Do You Have Smoke And Carbon Monoxide Detectors In Your Home? Yes MIGRATION.32843 52131 Information not available 12/23/2022 At What Age Did You Start Smoking Tobacco? 24 MIGRATION.20334 48273 Information not available 12/23/2022 Are You Passively Exposed To Smoke? Yes MIGRATION.11008 01369 Information not available 12/23/2022 Do You Or Have You Ever Used Smokeless Tobacco? Never Used Smokeless Tobacco MIGRATION.60991 10014 Information not available 12/23/2022 Are There Any Smokers In Your House? Yes MIGRATION.30858 76282 Information not available 12/23/2022 How Much Tobacco Do You Smoke? 1 PPW MIGRATION.19442 69946 Information not available 12/23/2022 Do You Use Any Illicit Or Recreational Drugs? No MIGRATION.06082 28889 Information not available 12/23/2022 Do You Use Sunscreen Routinely? Yes MIGRATION.40901 56085 Information not available 12/23/2022 How Many Years Have You Smoked Tobacco? 25 MIGRATION.43517 58292 Information not available 12/23/2022 Have You Recently Traveled Abroad? No MIGRATION.59581 19297 Information not available 12/23/2022 Do You Have Any Dietary Restrictions? No MIGRATION.57736 62584 Information not available 12/23/2022 Do You Or Have You Ever Used Any Other Forms Of Tobacco Or Nicotine? No MIGRATION.02451 65366 Information not available 12/23/2022 Sex: Female Functional Status Question Answer Note LastModified by Organizat ion Details LastModified Time Do you have difficulty walking or climbing stairs? Yes MIGRATION.7850464 026 Information not available 12/23/2022 Do you have transportation difficulties? Yes MIGRATION.4567663 026 Information not available 12/23/2022 Are you able to walk? YESASSIST [email or web address] Information not available 07/19/2023 Do you have difficulty doing errands alone? No MIGRATION.9648376 026 Information not available 12/23/2022 Are you able to care for yourself? Yes MIGRATION.6411834 026 Information not available 12/23/2022 Do you have difficulty dressing or bathing? No MIGRATION.7016017 026 Information not available 12/23/2022 What is your exercise level? None MIGRATION.6867998 026 Information not available 12/23/2022 Mental Status Question Answer Note LastModified by Organizat ion Details LastModified Time Do you have difficulty concentrating, remembering or making decisions? No MIGRATION.992924225 6 Information not available 12/23/2022 Family History Relationship Description Onset Age of this Age Resolved Age Notes LastModified by Organization Details LastModified Time Father Heart disease MIGRATION.201 [id number] Not available 12/23/2022 04:42:14 Father Hypertensive disorder MIGRATION.382 9006708 Not available 12/23/2022 04:42:14 Father Diabetes mellitus MIGRATION.598 2331342 Not available 12/23/2022 04:42:14 Mother Heart disease MIGRATION.991 3079658 Not available 12/23/2022 04:42:14 Mother Family history of malignant neoplasm MIGRATION.844 2369144 Not available 12/23/2022 04:42:14 Mother Diabetes mellitus MIGRATION.142 6369806 Not available 12/23/2022 04:42:14 Medical History Condition Response ARTHRITIS Y CANCER: SPECIFY Y URINARY/BLADDER/KIDNEY PROBLEMS Y HEARTBURN / REFLUX [...] quadrivalent, PF 0 completed Not Available [facility] 05/03/2023 16:25:58 Pneumococcal conjugate PCV 13 0 completed Not Available [facility] 05/03/2023 16:25:58 Past Encounters Encounter ID Performer Location Encounter Start Date Encounter Closed Date Diagnosis/Indication Diagnosis SNOMED-CT Code Diagnosis ICD10 Code Diagnosis Note [id number] MD LIZETTE Oropeza_JILL [facility] [address] [place] [address] 02/05/2021 00:00:00 02/10/2021 12:15:37 [id number] MD LIZETTE Oropeza_JILL [address] [address] 02/27/2021 00:00:00 03/02/2021 16:07:23 [id number] Ran Carney MD [facility] [place] [address] [place] [address] 03/05/2021 00:00:00 03/15/2021 22:29:08 [id number] ANA Wilson [facility] [place] [address] [place] [address] 03/17/2021 00:00:00 03/21/2021 18:02:04 [id number] MD LIZETTE [facility] [place] [address] [place] [address] 04/16/2021 00:00:00 04/16/2021 10:28:54 [id number] ANA Wilson [facility] [place] [address] [place] [address] 06/23/2021 00:00:00 06/23/2021 22:41:56 [id number] ANA Wilson [facility] [place] [address] [place] [address] 09/08/2021 00:00:00 09/23/2021 18:26:16 [id number] Ran Carney MD [facility] [place] [address] [place] [address] 01/14/2022 00:00:00 02/01/2022 17:50:53 [id number] Ran Carney MD [facility] [place] [address] [place] [address] 02/04/2022 00:00:00 02/04/2022 09:06:32 [id number] MD ANIYA [facility] [place] [address] [place] [address] 02/20/2022 00:00:00 02/20/2022 09:19:09 [id number] Ran [place] MD [facility] [place] [address] [place] [address] 03/13/2022 00:00:00 03/13/2022 09:18:53 [id number] Kendall Magana MD [facility] [place] [address] [place] [address] 06/15/2022 00:00:00 06/21/2022 10:43:56 [id number] Ran [place] MD [facility] [place] [address] [place] [address] 09/25/2022 00:00:00 09/25/2022 10:14:07 [id number] Ran [place] MD [facility] [place] [address] [place] [address] 11/13/2022 00:00:00 11/22/2022 13:34:26 [id number] Ran Carney MD [facility] [place] [address] [place] [address] 12/11/2022 00:00:00 12/11/2022 09:22:01 [id number] Ran [place]ney MD [facility] [place] [address] [place] [address] 01/22/2023 10:02:11 01/25/2023 09:58:48 Partial thickness rotator cuff tear 243772894 M75.101 Neck pain 19390430 M54.2 Ulnar nerv e entrapment at elbow 103494482 G56.21 [id number] ANA Wilson [facility] [place] [address] [place] [address] 02/10/2023 13:59:07 02/10/2023 14:36:32 Pruritic rash 48855157 L28.2 Rx for steroid cream and nystatin as well to utilize both for different rashes. groin with jud that needs antifungal tx. steroid cream for buttock region. Hypothyroidism 61565878 E03.9 due for TFTs. not on supplement therapy. Hyperlipidemia 04527772 E78.5 on statin therapy, due for fasting lipids Impaired g lucose tolerance 6552431 R73.03 a1c due w/IGT hx Long-term drug therapy 514939386 Z79.899 all routine bmp, lft and CBC labs due History of polyp of colon 128919740 Z86.010 due for colonoscop y f/u screening [id number] Ran Carney MD [facility] [place] [address] [place] [address] 02/24/2023 08:28:05 02/24/2023 10:01:39 Pain in left foot [id number] 93341 M79.672 [id number] Ran Carney MD [facility] [place] [address] [place] [address] 03/03/2023 08:28:43 03/03/2023 09:08:55 Pain in left foot [id number] 70036 M79.672 [id number] Ran Carney MD [facility] [place] [address] [place] [address] 2023 08:45:18 2023 09:31:50 Pain in left foot [id number] 12433 M79.672 [id number] Ran Carney MD [facility] [place] [address] [place] [address] 04/02/2023 08:46:25 04/02/2023 09:14:02 Pain in left foot [id number] 56947 M79.672 [id number] Ran Carney MD [facility] [place] [place] [address] [place] [address] 04/21/2023 08:32:44 04/23/2023 14:32:27 Closed fracture of metatarsal bone 27273630 S92.315D [id number] Ran Carney MD [facility] [place] [address] [place] [address] 05/14/2023 08:47:32 05/14/2023 10:06:58 Closed fracture of metatarsal bone 00887539 S92.315D [id number] Ran Carney MD [facility] [place] [address] [place] [address] 06/04/2023 08:42:16 06/04/2023 12:28:24 Closed fracture of metatarsal bone 07573673 S92.315D [id number] Ran Carney MD [facility] [place] [address] [place] [address] 06/23/2023 08:24:05 06/23/2023 09:07:56 Osteoarthritis of right knee joint [id number] 14816 M17.11 [id number] Ran Carney MD [facility] [place] [address] [place] [address] 07/02/2023 08:48:50 07/05/2023 15:12:23 Closed fracture of metatarsal bone 56569221 S92.315D [id number] ANA Wilson [facility] [place] [address] [place] [address] 07/19/2023 10:26:00 07/19/2023 11:22:00 Adult health examination 910536728 Z00.00 mawe completed /routine f/u completed Screening for disorder 621179818 Z13.9 Hypothyroidism 37058616 E03.9 due for TFTs. not on supplement therapy. Hyperlipidemia 87367247 E78.5 on statin therapy, due for fasting lipids Impaired g lucose tolerance 0803521 R73.03 a1c due w/IGT hx Long-term drug therapy 816210260 Z79.899 all routine bmp, lft and CBC labs due History of polyp of colon 936816475 Z86.010 Still due for 1 year f/u colonoscop y screening that is past due. ordered again Screening mammography 24 234191 Z12.31 mammogram due in jul. Smoker 78663068 F17.200 LDCT scan ordered Osteoporosis 48390444 M8 1.0 UTD on dexa 2022 Vitamin D deficiency 347 00849 E55.9 refill vitamin D that was very low on ortho screening. Postmenopa usal bleeding 43884741 N95.0 refer to gyne promptly as she had occult PMB. Acute dermatitis 6551560 6 L30.9 Rx for steroid cream, prednisone taper, antifungal cream and doxy 100mg bid course to treat different derm rashes and lesions present on exam today. [id number] Ran Carney MD [facility] [place] [address] [place] [address] 07/30/2023 08:47:25 07/30/2023 09:53:07 Closed fracture of metatarsal bone 53769186 S92.315D [id number] Ran Carney MD [facility] [place] 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 AST was 60 on jul labs. [id number] Ran Carney MD [facility] [place] [address] [place] [address] 01/03/2024 14:15:36 01/03/2024 17:01:29 Closed fracture of metatarsal bone 36669142 S92.315D Health Concerns Section Related Observation LastModified by Organization Detai ls LastModified Time None Recorded Concern Status LastModified by Organization Details LastModified Time None Recorded Advance Directives Directive Y: Payers Encounter Date Sequence Insurance Name Policy Number Policy Thomas Covered Member ID Thomas Member ID Guarantor Name 07/19/2023 1 [facility] (MEDICARE REPLACEMENT/ ADVANTAGE - HMO) [id number] Yajaira Solo [id number] Yajaira Dye Behrend[employer] 07/30/2023 [employer] Yajaira Salguerorendt 08/27/2023 [employer] Yajaira Salguerorendt 09/02/2023 1 [facility] (MEDICARE REPLACEMENT/ ADVANTAGE - HMO) [id number] Yajaira Minadt [id number] Yajaira Dye Behrendt 01/03/2024 [employer] Yajaira Solo Notes Date Note Type [...] in your bucket for review. ANA Wilson [address] [facility] [address], [place], [address], [facility] [employer] 07/20/2023 14:20:32 11/03/20 23 text/htm l patient returns. She is here [...] aggravate the situation. Ran Carney MD [address] [place] [address], [place], [address], [employer] 09/06/2023 15:42:37 09/02/20 23 text/htm l Generic [...] is recommended on that. ANA Wilson [address], [place], [address], [employer] 09/22/2023 23:02:08 01/03/20 24 text/htm l patient [...] in near anatomic alignment. Ran Carney MD [address] [place] [address], [place] [address], [place], [address], [place] [facility] [employer] [facility] 01/03/2024 16:56:42 OBGyn Episode No OBEpisode recorded.
--- OUTSIDE RECORDS SUMMARY | 2025-02-27 07:13 | XMS_ITS | Clinical Summary ---
Author Organization [facility] Address [address] [place] [address] Phone Care Team Providers Care Flame Channeler Name Role Phone Nahed Ceballos Primary Care Provider [phone] Allergies No known active allergies Medications lovastatin [...] times daily. 03/08/2019 Active ergocalciferol (VITAMIN D) 36544 UNIT Capsule Take 1 Cap by mouth [...] Insurance MEDICAID [employer] Care Teams Flame Channeler Relationship Specialty Start Date End Date Nahed Ceballos PA [address] [address] PCP - General Adult Medicine 03/01/19
--- OUTSIDE RECORDS SUMMARY | 2025-02-27 07:14 | XMS_ITS | CONTINUITY OF CARE DOCUMENT ---
Author Name john swapnildarrin Address Unknown Organization [facility] Address [address] [place] [address] Phone [phone] Care Team Providers Care Garment Inspector Name Role Phone Nora WHEELER, Gutierrez [...] pain-type to be determined active Lakesha Garcia PRINTING BINDERY ASSISTANT Leg pain, bilateral active Wilmer Monet Lower extremity edema active Wilmer Monet Dyspnea on exertion active Wilmer Monet ENCOUNTERS Date Type Provider Location Encounter Diag nosis - In-person encounter Office Visit Gutierrez Melendez MD [facility] - In-person encounter Office Visit Gutierrez Melendez MD [facility] Leg pain, bilateralLower extremity edemaDyspnea on exertion - In-person encounter Office Visit Gutierrez Melendez MD [facility] Chest pain-type to be determined - In-person encounter Office Visit Gutierrez Melendez MD [facility] Atrial flutter;ablatted - In-person encounter Office Visit Gutierrez Melendez MD [facility] Sustained ventricular tachycardiaCarotid bruits, bilateral - In-person encounter Office Visit Buddy Galindo MD [facility] Aortic atherosclerosisScreeningCAD, calcium score 130 in 2019 - In-person encounter Office Visit Caesar Castro MD [facility] Edema;oconnell thurnre?S/P Medtronic (MRI Safe) REVEAL/LinQAtrial flutter;ablattedVitamin D deficiency- on medsGoiter;nml tshBACK PAIN;CHRONICVenous stenoisisDiverticulosis, colon - In-person encounter Office Visit Caesar Castro MD [facility] SyncopeCardiomyopathy;no cad by cathPulmonary hypertension, secondaryChest painPreoperative cardiovascularExposure to SARS-associated coronavirus;neg iggDiastolic dysfunction - In-person encounter Office Visit Gutierrez Melendez MD [facility] Atrial flutter;ablatted - In-person encounter Office Visit Gutierrez Melendez MD [facility] - In-person encounter Office Visit Caesar Castro MD [facility] PVC'sCAD, calcium score 130 in 2019 - In-person encounter Office Visit Caesar Castro MD [facility] Tobacco dependence, continuousISCHEMIA;Cardiomyop athy;no cad by cathRF ablation for SVT/AF;nml tshAbdominal bloatingSEIZURE disorder - In-person encounter Office Visit Caesar Castro MD [facility] Screening - In-person encounter Office Visit Buddy Galindo MD [facility] - In-person encounter Office Visit Caesar Castro MD [facility] COPDIRON DEFICIENCYMicrovascular angina - In-person encounter Office Visit Gloria Gonzales MD [facility] - In-person encounter Office Visit Caesar Castro MD [facility] Groin pain, right - In-person encounter Office Visit Caesar Castro MD [facility] Dyspnea on exertion - In-person encounter Office Visit Caesar Castro MD [facility] Oncology HTN essential;neg dupelxEdema;oconnell thurnre?ISCHEMIA;Vitamin D deficiencyCardiomyopathy;no cad by cath - In-person encounter Office Visit Caesar Castro MD [facility] - In-person encounter Office Visit Caesar Castro MD [facility] Tobacco dependence, continuousDiabetes mellitus, borderlineFAMILY HISTORY OF HEART DISEASEHTN essential;neg dupelxHypercholesterolemiaObe seEdema;oconnell thurnre?SLEEP APNEA; VITAL SIGNS Date Observation Value Provider Body Mass Index (Ratio) 30.45 kg/m2 Wilmer Monet blood pressure, diastolic 65 mm[Hg] Fl lul[place] blood pressure, systolic 131 mm[Hg] [facility] manohar Vaughan oxygen saturation, oximetry [...] [in_i] Chelsea Ivette pulse rate #2 72 [place] [facility] blood pressure, ramírez tolic, second observation 86 mm[Hg] Ozraida Tebid blood pressure, syst olic, second observation 145 mm[Hg] Zoraida Tebid oxygen saturation, oximetry 98 % [facility] 72 /min [place] blood pressure, diastolic 86 mm[Hg] Vi ctoria Tebid blood pressure, systolic 145 mm[Hg] Randall jose Tebid pulse rate #2 75 [facility] blood pressure, ramírez tolic, second observation 80 mm[Hg] [facility], syst olic, second observation 136 mm[Hg] [facility] oxygen saturation, oximetry 98 % [facility] pulse rate 75 /min [facility] blood pressure, diastolic 80 mm[Hg] Vi ctoria Tebid blood pressure, systolic 136 mm[Hg] Randall jose T[facility]id pulse rate #2 80 [facility] blood pressure, ramírez tolic, second observation 79 mm[Hg] [facility] blood pressure, syst olic, second observation 141 mm[Hg] [facility] oxygen saturation, oximetry 98 % [facility] pulse rate 80 /min [facility] blood pressure, diastolic 79 mm[Hg] Vi ctoria Tebid blood pressure, systolic 141 mm[Hg] Randall jose Tebid pulse rate #2 68 [facility] blood pressure, ramírez tolic, second observation 78 mm[Hg] [facility] blood pressure, syst olic, second observation 129 mm[Hg] [facility] oxygen saturation, oximetry 98 % [facility] pulse rate 68 /min [facility] blood pressure, diastolic 78 mm[Hg] Vi ctoria Tebid blood pressure, systolic 129 mm[Hg] Randall jose Tebid pulse rate #2 85 [facility] blood [facility], ramírez tolic, second observation 88 mm[Hg] [facility] blood pressure, syst olic, second observation 123 mm[Hg] [facility] oxygen saturation, oximetry 98 % [facility] pulse rate 85 /min [facility] blood pressure, diastolic 88 mm[Hg] Vi ctoria Tebid blood pressure, systolic 123 mm[Hg] Randall jose Tebid pulse rate #2 69 [facility] blood pressure, ramírez tolic, second observation 86 mm[Hg] [facility] blood pressure, syst olic, second observation 124 mm[Hg] [facility] oxygen saturation, oximetry 98 % [facility] pulse rate 69 /min [facility] blood pressure, diastolic 86 mm[Hg] [facility] Tebid blood pressure, systolic 124 mm[Hg] Randall jose Tebid pulse rate #2 75 [facility] blood pressure, ramírez tolic, second observation 79 mm[Hg] [facility] blood pressure, syst olic, second observation 129 mm[Hg] [facility] oxygen saturation, oximetry 98 % [facility] pulse rate 75 /min [facility] blood pressure, diastolic 79 mm[Hg] Vi ctoria Tebid blood pressure, systolic 129 mm[Hg] Randall mendezia Tebid pulse rate #2 76 [facility] blood pressure, ramírez tolic, second observation 85 mm[Hg] [facility] blood pressure, syst olic, second observation 122 mm[Hg] [facility] oxygen saturation, oximetry 98 % [facility] pulse rate 76 /min [facility] blood pressure, diastolic 85 mm[Hg] [facility]ebid blood pressure, systolic 122 mm[Hg] [facility]2 75 [place] blood pressure, ramírez tolic, second observation 76 mm[Hg] [facility] blood pressure, syst olic, second observation 113 mm[Hg] [facility] oxygen saturation, oximetry 98 % [facility] pulse rate 75 /min [facility] blood pressure, diastolic 76 mm[Hg] Vi [facility] Ted blood pressure, systolic 113 mm[Hg] [facility]2 77 [facility] blood pressure, ramírez tolic, second observation 86 mm[Hg] [facility] blood pressure, syst olic, second observation 139 mm[Hg] [facility] oxygen saturation, oximetry 98 % [facility] pulse rate 77 /min [facility] blood pressure, diastolic 86 mm[Hg] [facility], [facility] 139 mm[Hg] [facility] #2 77 [facility] blood pressure, ramírez tolic, second observation 82 mm[Hg] [facility] blood pressure, syst olic, second observation 140 mm[Hg] [facility] oxygen saturation, oximetry 98 % [facility] pulse rate 77 /min [facility] blood pressure, diastolic 82 mm[Hg] [facility], systolic 140 mm[Hg] Randall jose bid pulse rate #2 76 [facility] blood pressure, ramírez tolic, second observation 82 mm[Hg] [facility] blood pressure, syst olic, second observation 138 mm[Hg] [facility] oxygen saturation, oximetry 98 % Zoraida [facility]eb[facility] pulse rate 76 /min [place] [facility] blood pressure, diastolic 82 mm[Hg] Vi ctoria [facility] blood pressure, systolic 138 mm[Hg] Randall jose [facility] pulse rate #2 71 [facility] blood pressure, ramírez tolic, second observation 84 mm[Hg] Zoraida [facility] blood pressure, syst olic, second observation 136 mm[Hg] [facility] oxygen saturation, oximetry 98 % [facility] pulse rate 71 /min [place] [facility] blood pressure, diastolic 84 mm[Hg] Vi okoria Tebid blood pressure, systolic 136 mm[Hg] Randall jose [facility] pulse rate #2 73 [facility] blood pressure, ramírez tolic, second observation 81 mm[Hg] [facility] blood pressure, syst olic, second observation 135 mm[Hg] [facility] oxygen saturation, oximetry 98 % [facility] pulse rate 73 /min [place] [facility] blood pressure, diastolic 81 mm[Hg] [facility] blood pressure, systolic 135 mm[Hg] Randall mendezia Tebid pulse rate #2 74 [place] [facility] blood pressure, ramírez tolic, second observation 80 mm[Hg] [place] [facility] blood pressure, syst olic, second observation 151 mm[Hg] Zoraida [facility] oxygen saturation, oximetry 98 % [facility] pulse rate 74 /min [place] [facility] blood pressure, diastolic 80 mm[Hg] Vi okoria [facility]ebid blood pressure, systolic 151 mm[Hg] Randall jose [facility]id pulse rate #2 78 [facility] blood pressure, ramírez tolic, second observation 76 mm[Hg] [place] [facility] blood pressure, syst olic, second observation 142 mm[Hg] [facility] oxygen saturation, oximetry 98 % Zoraida d pulse rate 78 /min [place] d blood pressure, diastolic 76 mm[Hg] Vi ctoria [facility]ebid blood pressure, systolic 142 mm[Hg] Randall jose [facility] pulse rate #2 67 [facility] blood pressure, ramírez tolic, second observation 82 mm[Hg] [facility] blood pressure, syst olic, second observation 136 mm[Hg] [facility] oxygen saturation, oximetry 98 % [place] pulse rate 67 /min [place] blood pressure, diastolic 82 mm[Hg] Vi ctoria [facility] blood pressure, systolic 136 mm[Hg] Randall jose Tebid pulse rate #2 71 [place] blood pressure, ramírez tolic, second observation 88 mm[Hg] [facility] blood [facility], syst olic, second observation 132 mm[Hg] Zoraida d oxygen saturation, oximetry 98 % [place] pulse rate 71 /min [place] blood pressure, diastolic 88 mm[Hg] Vi ctoria [facility]ebid blood pressure, systolic 132 mm[Hg] Randall jose [facility] pulse rate #2 70 [place] blood pressure, ramírez tolic, second observation 86 mm[Hg] [facility] blood [facility], syst olic, second observation 136 mm[Hg] Zoraida d oxygen saturation, oximetry 98 % [place] pulse rate 70 /min [facility] blood pressure, diastolic 86 mm[Hg] Vi ctoria Tebid blood pressure, systolic 136 mm[Hg] Randall jose T[facility] Body Mass Index (Ratio) 32.28 kg/m2 Dieter Castro MD pulse rate #2 75 [place] [facility] blood pressure, ramírez tolic, second observation 78 mm[Hg] [facility] blood pressure, syst olic, second observation 136 mm[Hg] [facility] oxygen saturation, oximetry 98 % [facility] pulse rate 75 /min [facility] blood pressure, diastolic 78 mm[Hg] [facility] blood pressure, systolic 136 mm[Hg] Randall jose blood pressure, cuff size regular Ke rri Ericclaritaieshagood [facility] blood pressure, diastolic 92 mm[Hg] Ke rri [facility] blood pressure, systolic 145 mm[Hg] Curtis elizabeth [facility] oxygen saturation, oximetry 98 % Charissa Kashifw[facility] respiratory rate E&M 18 /min Charissa G nirmalwashington county tuberculosis hospitalmartina pulse rate 74 /min Charissa Rochemoonmere [facility] weight E&M 194 [lb_av] Charissa Melchormoone [facility] hospital height E&M 65 [in_i] Charissa Melchormere [facility] pulse rate #2 67 Zoraida blood pressure, ramírez tolic, second observation 91 mm[Hg] [facility] blood pressure, syst olic, second observation 140 mm[Hg] [facility] oxygen saturation, oximetry 98 % [facility] pulse rate 67 /min [facility] blood pressure, diastolic 91 mm[Hg] Vi ctoria d blood pressure, systolic 140 mm[Hg] Randall jose d pulse rate #2 76 [facility] blood pressure, ramírez tolic, second observation 87 mm[Hg] [facility] blood pressure, syst olic, second observation 132 mm[Hg] [facility] oxygen saturation, oximetry 98 % [facility] pulse rate 76 /min [facility] blood pressure, diastolic 87 mm[Hg] Vi ctoria Tebid blood pressure, systolic 132 mm[Hg] Randall jose Tebid pulse rate #2 72 [facility] blood pressure, ramírez tolic, second observation 104 mm[Hg] [facility] blood pressure, syst olic, second observation 164 mm[Hg] [facility] oxygen saturation, oximetry 98 % [facility] pulse rate 72 /min [facility] blood pressure, diastolic 104 mm[Hg] Vi ctoria Tebid blood pressure, systolic 164 mm[Hg] Randall jose Tebid pulse rate #2 75 [facility], ramírez tolic, second observation 95 mm[Hg] [facility] blood pressure, syst olic, second observation 151 mm[Hg] [facility] oxygen saturation, oximetry 98 % [facility] pulse rate 75 /min [facility] blood pressure, diastolic 95 mm[Hg] Vi ctoria Tebid blood pressure, systolic 151 mm[Hg] Randall jose Tebid pulse rate #2 82 [facility] blood pressure, ramírez tolic, second observation 90 mm[Hg] [facility] blood pressure, syst olic, second observation 142 mm[Hg] [facility] oxygen saturation, oximetry 98 % [facility] pulse rate 82 /min [facility] blood pressure, diastolic 90 mm[Hg] Vi ctoria Tebid blood pressure, systolic 142 mm[Hg] Randall jose Tebid pulse rate #2 77 [facility] blood pressure, ramírez tolic, second observation 85 mm[Hg] [facility] blood pressure, syst olic, second observation 145 mm[Hg] [facility] oxygen saturation, oximetry 98 % Zoraida pulse rate 77 /min [place] blood pressure, diastolic 85 mm[Hg] Vi ctoria Tebid blood pressure, systolic 145 mm[Hg] Randall jose Tebid pulse rate #2 76 [facility] blood pressure, ramírez tolic, second observation 80 mm[Hg] [facility] blood pressure, syst olic, second observation 160 mm[Hg] [facility] oxygen saturation, oximetry 98 % [facility] pulse rate 76 /min [facility] blood pressure, diastolic 80 mm[Hg] Vi ctoria Tebid blood pressure, systolic 160 mm[Hg] Randall jose Tebid pulse rate #2 69 [place] blood pressure, ramírez tolic, second observation 94 mm[Hg] [facility] blood pressure, syst olic, second observation 115 mm[Hg] [facility] oxygen saturation, oximetry 98 % [place] pulse rate 69 /min [facility] blood pressure, diastolic 94 mm[Hg] Vi ctoria Tebid blood pressure, systolic 115 mm[Hg] Randall jose Tebid pulse rate #2 74 [facility] blood pressure, ramírez tolic, second observation 92 mm[Hg] [facility] blood pressure, syst olic, second observation 144 mm[Hg] [facility] oxygen saturation, oximetry 98 % [facility] pulse rate 74 /min [facility] blood pressure, diastolic 92 mm[Hg] Vi ctoria Tebid blood pressure, systolic 144 mm[Hg] Randall jose Tebid pulse rate #2 73 [facility] blood pressure, ramírez tolic, second observation 84 mm[Hg] [facility] blood pressure, syst olic, second observation 137 mm[Hg] [facility] oxygen saturation, oximetry 98 % [facility] pulse rate 73 /min [facility] blood pressure, diastolic 84 mm[Hg] Vi lauren [facility] blood pressure, systolic 137 mm[Hg] Randall garcia [facility] Body Mass Index (Ratio) 32.45 kg/m2 [...] Body Mass Index (Ratio) 32.75 kg/m2 Dieter Csatro MD blood pressure, diastolic 78 mm[Hg] Karel [...] er blood pressure, diastolic 80 mm[Hg] Karel Peañ blood pressure, systolic 134 mm[Hg] Juliet Peña pulse rate 87 /min Martita ortega oxygen saturation, oximetry 98 % Martita Peña respiratory rate E&M 16 /min Deepa Peña Body Mass Index (Ratio) 32.68 kg/m2 Mini Peña weight E&M 196.4 [lb_av] Martita bernabe blood pressure, diastolic 88 mm[Hg] Am nguyen Henry blood pressure, systolic 120 mm[Hg] [place] nda Henry pulse rate 87 /min Ailyn Henry oxygen saturation, oximetry 97 % Ailyn Henry respiratory rate E&M 16 /min Ailyn Figueroa Body Mass Index (Ratio) 31.12 kg/m2 Florentino Parekh weight E&M 187 [lb_av] Ailyn Figueroa blood pressure, diastolic 70 mm[Hg] Karel Peña blood pressure, systolic 126 mm[Hg] Juliet Peña pulse rate 58 /min Martita ortega oxygen saturation, oximetry 98 % Martita Peañ respiratory rate E&M 18 /min Deepa Peña [...] [employer] 3.5-5.2 sodium, serum 144 mmol/L [facility] [phone]/04 /22 urea nitrogen/creatinine ratio, serum 14 [employer] [...] Not Estab. platelet count 248 X10E3/UL [facility] [phone]/04 /22 red blood cell distribution width 13.2 [...] Not Estab. platelet count 240 X10E3/UL [facility] [phone]/01 /23 red blood cell distribution width 12.9 [...] [employer] 3.5-5.2 sodium, serum 144 mmol/L [facility] [phone]/01 /23 urea nitrogen/creatinine ratio, serum 9 [employer] [...] [facility] 3.5-5.2 sodium, serum 140 mmol/L [facility] [phone]/01 /22 urea nitrogen/creatinine ratio, serum 9 [employer] [...] iron binding capacity, unsaturated 260 ug/dL [facility] [phone]/08 /07 iron binding capacity, total 329 ug/dL [facility] [phone]/08 /07 free thyroxine index 2.7 [facility] 1.2-4.9 [...] [employer] 0-149 cholesterol, serum 198 mg/dL [facility] [phone]/08 /07 calcium, serum 9.7 mg/dL [facility] 8.7-10.3 [...] Not Estab. platelet count 244 X10E3/UL [facility] [phone]/08 /07 red blood cell distribution width 13.1 [...] [employer] 0-149 cholesterol, serum 179 mg/dL [facility] [phone]/12 /10 coagulation managed by Marco A Velasco [...] [facility] 3.5-5.2 sodium, serum 143 mmol/L [facility] [phone]/12 /08 urea nitrogen/creatinine ratio, serum 15 [employer] [...] Not Estab. platelet count 248 X10E3/UL [facility] [phone]/12 /08 red blood cell distribution width 13.3 [...] (low-density lipoprotein/high-de nsity lipoprotein) ratio 1.4 RATIO [facility] - lipoprotein, beta, serum, point, quantitative, calculated 95.4 (?) [facility] 0.0 - 100.0 HDL cholesterol, serum 69.0 mg/dL [facility] 45.0 - 65.0 High cholesterol, serum 203.0 mg/dL [facility] 0.0 - 200.0 High triglyceride, serum, fasting 193.0 mg/dL [facility] 0.0 - 150.0 High lipase, serum 21.0 U/L [facility] 13.0 - 60.0 anion gap, serum 13.4 [facility] albumin/globulin ratio, serum 1.8 g/dL [facility] 1.1 - 2.5 globulin, serum 2.5 [facility] 2.3 - 3.8 urea nitrogen/creatinine ratio, serum 12.5 [facility] - Estimated Glomerular Filtration [...] - 1.2 urea nitrogen, blood 10.0 mg/dL [facility] 8.0 - 23.0 blood glucose, random 72.0 mg/dL [facility] 74.0 - 99.0 Low amylase, serum 48.0 1/L [facility] 28.0 - 100.0 red blood cell distribution width, size density 43.4 fL [facility] - immature granulocytes, percentage of total cells, blood 0.4 % [facility] - nucleated red blood cells as percent of blood leukocytes 0.0 % [facility] - red blood cell (erythrocyte) count, per high power field 0.0 10*3/UL [facility] - eosinophils as percent of blood leukocytes 0.7 % [facility] - neutrophils as percent of blood leukocytes 60.3 % [facility] - Absolute Neutrophils 5.9 CELLS/UL [facility] 1.5 - 7.8 basophils as percent of blood leukocytes 0.5 % [facility] - Absolute Basophils 0.1 CELLS/UL [facility] 0.0 - 0.2 monocytes as percent of blood leukocytes 10.9 % [facility] - Absolute Monocytes 1.1 CELLS/UL [facility] 0.2 - 1.0 High lymphocytes as percent of blood leukocytes 27.2 % [facility] Lymphocytes 2.7 CELLS/UL [...] as % of total hemoglobin 6.1 % [facility] 4.0 - 5.6 High folate, serum 6.0 NG/MLM [facility] 5.6 - 45.8 ferritin, serum 118.9 ng/mL [facility] 13.0 - 150.0 iron, serum 73.0 ug/dL [facility] 25.0 - 156.0 iron saturation percent, serum 20.8 % [facility] 20.0 - 50.0 iron binding capacity, total 351.4 ug/dL [facility] 250.0 - 450.0 rapid plasma reagin antibody, serum NON-REACTIV E [facility] NON-REACTIVE very low density lipoproteins 35.6 [...] - 150.0 urea nitrogen/creatinine ratio, serum 13.8 [facility] Estimated Glomerular Filtration Rate (calc) [...] cell distribution width, size density 49.1 fL [facility] immature granulocytes, percentage of total cells, blood 0.4 % [facility] - nucleated red blood cells as percent of blood leukocytes 0.0 % [facility] - red blood cell (erythrocyte) count, per high power field 0.0 10*3/UL [facility] - eosinophils as percent of blood leukocytes 0.7 % [facility] - neutrophils as percent of [...] 1 tablet by mouth once daily 11/11 [facility] Specialist valsartan 40 mg tablet active [...] a week 05/31 - 11/11 Lakesha Garcia PRINTING BINDERY ASSISTANT MAGNESIUM OXIDE 400 MG ORAL TABLET completed [...] 05/28 - 05/27 Charissa Blanc VITAMIN [id number] UNIT ORAL CAPSULE completed once a week 05/11 - 04/20 Caesar Castro MD ASPIRIN EC 81 MG ORAL TABLET DELAYED RELEASE completed one tab daily 04/22 - 05/28 Caesar Catsro MD MULTIVITAMINS CAPS active 1 tablet once [...] Marincelinezavianney smoking, date started 42 Kehinde Garcia PRINTING BINDERY ASSISTANT smoking/tobacco cess ation, patient education and counseling yes Adriana Thomas smoking history, tot al pack/day 0.5-1 Lakesha Hodgsonangela PRINTING BINDERY ASSISTANT cigarette use yes Adriana [place] sewellon smoking [...] E&M revi ewed - no changes required Caesra Castro MD smoking/tobacco cess ation, patient education [...] Date Observation Value Provider energy level yes [place] [facility] energy level yes [place] [facility] energy level yes [place] [facility] energy level yes [place] [facility] energy level yes [place] [facility] energy level yes [place] [facility] energy level yes [place] [facility] energy level yes [place] [facility] energy level yes [place] [facility] energy level yes [place] [facility] energy level yes [place] [facility] energy level yes [place] [facility] energy level yes [place] [facility] energy level yes [place] [facility] energy level yes [place] [facility] energy level yes [place] [facility] energy level yes [place] [facility] energy level yes [place] [facility] energy level yes [place] [facility] energy level yes [place] [facility] energy level yes [place] [facility] energy level yes [place] [facility] energy level yes [place] [facility] energy level yes [place] [facility] energy level yes [place] [facility] energy level yes [place] [facility] energy level yes [place] [facility] energy level yes Zoraida Tebid energy level yes Zoraida Tebid energy level no Zoraida Tebid FAMILY HISTORY Family Member Condition Father Family History of Di abetes: Mother Family History of Di abetes: INSURANCE PROVIDERS Payer name Policy type / Coverage type [place] [employer] party ID [employer] MED[employer]ARE ADV[employer]AGE ST 0 003 (HMO POS) Medicare [id number] ADVANCE DIRECTIVES Name Date DISCUSSED - NO DECISION MADE TREATMENT PLAN Date Name Performer [id number],C, B P today: 131/65 P rior BP: 152/86 (03/26/2023) Labs Reviewed: C reat: 0.85 (02/13/2021) C hol: 198 (05/31/2020) HDL: 70 (05/31/2020) Wilmer Wallyalan [id number],S, Wilmer Sandra i [id number],C,C ardiac monitor showed S inus Rhythm with occasional Ventricular ectopics and rare Supraventricular e ctopics. The average heart rate was 70bpm with a maximum rate of 105bpm and a m inimum rate of 61bpm. VE?s were documented as triplets, couplets, bigeminal c ycles, and isolated beats with a burden of 2.26%. Wilmer kurtvianney [id number],C,p ending stress test w ill send in nitro for now as needed [facility] [id number],C,A BI was normal but sensilase showed decreased PVR with normal perfusion pressures b/l, this is c/w venous insufficiency. Wilmer celinei [id number],C,pending stres s nuclear Wilmer celinei [id number],C,W ill check stress nuclear to assess for ischemia and and PFT given her hx of smoking Wilmer kurtvianney [id number],C,p t has chest pain which is new for her and not improving, will check stress nuclear Wilmer Monet [id number],S,w ill check 48 hr holter to assess for arrythmias which may be contributing to her chest discomfort Wilmer Monet [id number],C,s he did suffer injury on leg which may be a contributor but has decreased pulses on left leg, will check TANG and Sensilase to assess arterial flow. Wilmer Monet [id number],C, B P today: 152/86 P rior BP: 127/79 (09/11/2022) Labs Reviewed: C reat: 0.85 (02/13/2021) C hol: 198 (05/31/2020) HDL: 70 (05/31/2020) Wilmer Monet [id number],C,e ncouraged to cut down by half until able to quit. pt verbalizes desire to quit smoking. Lakesha Garcia PRINTING BINDERY ASSISTANT [id number],C,? syncope or seizure as in HPI. will plan ILR. o n ashlee Garcia PRINTING BINDERY ASSISTANT [id number],C, B P today: 127/79 P rior BP: [...] tablet twice a day Lakesha Garcia NP [id number],C,s ustained VT seen on stress test 2020 [...] will plan for ILR Lakeshaliliana Reiddaniel SINGLETON [id number],C,recent telese ntry as above Lakesha Reiddaniel SINGLETON [id number],C, Pt reports that she a couple of [...] study with Non-inducible VT Lakesha Hodgsonangela SINGLETON [id number],C,p t had telesentry 08/25/22 Sinus Rhythm with [...] as couplets and isolated beats Lakeshajacqueline Garcia PRINTING BINDERY ASSISTANT [id number],C, pt states that over the last couple of weeks, she has been experiencing intermittent chest pressure, 6/10, unchanged with inspiration or movement, and not associated with any specific activity. occurs at rest and with exertion. radation to L arm and associated with nausea. will check rtroutine stress test and ECHO Lakesha Garcia PRINTING BINDERY ASSISTANT Electrophysiology: B P today: 131/65 P rior [...] verbalizes desire to quit smoking. Lakesha Garcia PRINTING BINDERY ASSISTANT Electrophysiology:? syncope or seizure as in HPI. will plan ILR. chino Garcia PRINTING BINDERY ASSISTANT Electrophysiology: B P today: 127/79 P rior [...] twice daily Orders: 9 12 Minor 10-19min (CPT-54402) [facility] Follow up : H er updated medication list for this problem includes: Coreg 25 Mg Oral Tablet (Carvedilol) ..... One tab. twice daily Orders: E KG (CPT-48640) M onitor - Telemetry (Mobile Cardiac) (CPT-40011) 9 12 Minor 10-19min (CPT-10892) [facility] Fo llow up [...] : O rders: C arotid Duplex Bilateral (CPT-23830) [facility] Electrophysiology Fo llow up : S [...] BPM T otal VE: 5522 -- 5.4% [place] 5 015 Isolated 26 Pairs 1 22 Bigeminal 2 5 Trigeminal T otal SVE: 185 -- 0.1% [place] 1 85 Isolated Her updated medication list for this problem includes: Coreg 25 Mg Oral Tablet (Carvedilol) ..... One tab. twice daily Joaquin Reynolds Electrophysiology Fo llow up : s ustained VT seen on stress test yesterday. Orders: P ARTIAL THROMBOPLASTIN TIME, ACTIVATED (763) P ROTHROMBIN TIME WITH INR (8847) C BC (INCLUDES DIFF/PLT) (6399) B ASIC METABOLIC PANEL W/EGFR (06930) C T Cardiac with contrast (Pre-Ablation) (CPT-80161) A BLATION w/ Anesthesia (*) Stress 11/14/2020: [...] up [facility] Follow up Gabriel eMsa wrong doctor :5.4% on holter Bong Castro [...] spital Follow up: O rders: E KG (CPT-57487) 9 9214 MOD Complex (CPT-36214) S chedule Followup (*) Her updated medication [...] successfully ablated. Orders: 9 9214 MOD Complex (CPT-66986) S chedule Followup (*) Her updated medication [...] Jean Electrophysiology: O rders: C omplete Echo (CPT-07038) 9 9214 MOD Complex (CPT-87584) S chedule Followup (*) Arvin Jean Electrophysiology: O rders: F VC - 60624 (10263) F RC - 43694 (91788) D LCO - 88095 (44040) 9 9214 MOD Complex (CPT-76851) S chedule Followup (*) Arvin Jean Electrophysiology: [...] Electrophysiology: O rders: 9 9214 MOD Complex (CPT-85888) S chedule Followup (*) Her updated medication [...] stress test. Orders: S TR - Adenosine (CPT-54934) 9 9214 MOD Complex (CPT-68582) S chedule Followup (*) Her updated medication [...] plan for EP study with ablation at [facility] on 10/06/18. Orders: E KG (CPT-30658) ABLATION w/ Anesthesia (*) 9 9214 MOD Complex (CPT-96072) S chedule Followup (*) Her updated medication [...] up Buddy cardenas MD Cardiology Follow up Budyd cardenas MD Cardiology Follow up Buddy cardenas MD Cardiology;clindsesk down:roosevelt Castro MD Cardiology;clindsesk down:This patient has angina (defined as chest pain, chest discomfort, or pain in arms, neck, jaw, shoulder, or back, and may include symptoms of shortness of breath, fatigue, dizziness, nausea, or diaphoresis) of [place] [employer] Class III (defined as symptoms with everyday living activities, i.e. moderate limitation) or [place] [employer] Class IV (defined as inability [...] breath, fatigue, dizziness, nausea, or diaphoresis) of [place] [employer] Class III (defined as symptoms with everyday living activities, i.e. moderate limitation) or [place] [employer] Class IV (defined as inability [...] problem includes: Cartia Xt 120 Mg Oral [id number] (Diltiazem hcl coated beads) ..... One a [...] problem includes: Cartia Xt 120 Mg Oral [id number] (Diltiazem hcl coated beads) ..... One a [...] problem includes: Cartia Xt 120 Mg Oral [id number] (Diltiazem hcl coated beads) ..... One a [...] tab daily Cartia Xt 120 Mg Oral [id number] (Diltiazem hcl coated beads) ..... One a [...] tab daily Cartia Xt 120 Mg Oral [id number] (Diltiazem hcl coated beads) ..... One a [...] AND CMP NORMAL, BP MEDS RELATEED? [facility] er updated medication list for this problem [...] Name Holter Monitor 48 hr DLCO - 04052 FRC - 76806 FVC - 15494 Stress Regadenoson Arterial Duplex Bi-L ower EX Arterial - SENSILASE Loop Rec Implant - S [facility] CXR- PA/Lat Stress Routine Complete Echo DLCO - 79757 FRC - 84230 FVC - 09062 Carotid Duplex Bilat eral Monitor - Telemetry [...] PANEL Holter Monitor 24 Hr DLCO - 64864 FRC - 06998 FVC - [address] Thyroid Ultrasound Thyroid [...] D, 25-Hydrox y HEMOGLOBIN A1c DLCO - 70453 FRC - 50243 FVC - 01634 Covid Antibody Igg TSH, free T4, total T3 Holter Monitor 24 Hr Vitamin D, 25-Hydrox y HEMOGLOBIN A1c LIPID PANEL PARTIAL THROMBOPLAST IN TIME, ACTIVATED BASIC METABOLIC PANE L W/EGFR CBC (INCLUDES DIFF/P LT) ABLATION w/ Anesthes ia STR - Adenosine Complete Echo DLCO - 03871 FRC - 37404 FVC - 75023 DLCO - 09504 FRC - 53891 FVC - 00440 PROTHROMBIN TIME WIT H INR LIPID PANEL CBC (INCLUDES DIFF/P LT) BASIC METABOLIC PANE L W/EGFR Vitamin D, 25-Hydrox y CT, Coronary Calcium Score Complete Echo Low Dose Lung CT URINALYSIS, RANDOM, MICROALB/CREATININE HEMOGLOBIN A1c LIPID PANEL BASIC METABOLIC PANE L W/EGFR PROBNP, N TERMINAL DLCO - 50397 FRC - 60763 FVC - 05145 Vitamin D, 25-Hydrox y PROBNP, N TERMINAL BASIC METABOLIC PANE L W/EGFR LIPID PANEL URINALYSIS, RANDOM, MICROALB/CREATININE HEMOGLOBIN A1c BASIC METABOLIC PANE L W/EGFR Complete Echo Low Dose Lung CT CBC (INCLUDES DIFF/P LT) HEMOGLOBIN A1c CT Abdomen w/o contr ast LIPASE AMYLASE COMPREHENSIVE METABO LIC PANEL, W/EGFR CT Head w/o contrast LIPID PANEL PROBNP, N TERMINAL DLCO - 08465 FRC - 60698 FVC - 60974 Complete Echo DLCO - 17465 FRC - 88985 FVC - 35878 FOLATE, SERUM ECP - Medicare RPR (MONITOR) W/REFL TITER VITAMIN D, 25-HYDROX Y, LC/MS/MS Complete Echo IRON AND TOTAL IRON BINDING CAPACITY FERRITIN URINALYSIS, COMPLETE W/REFLEX TO CULTURE LIPID PANEL CBC (INCLUDES DIFF/P LT) DLCO - 95258 FRC - 36269 FVC - 50346 X-Ray, Chest, PA & L ateral PARTIAL [...] STR - Nuclear Complete Echo DLCO - 55213 FRC - 53868 FVC - 93750 HISTORY OF PROCEDURES Procedure Date Procedure Name [...] completed FVC / MVV with bronchodilator - 67996 Caesar Castro MD completed BLOOD COUNT HEMOGLOBIN Caesar Castro MD completed FRC - 53772 Caesar Castro MD complet ed SpO2 w/o 6min walk/titration Caesar Castro MD completed DLCO - 86186 Caesar Castro MD comple endra CT- Coronary CA score Caesar Castro MD [...] completed FVC / MVV with bronchodilator - 21854 Caesar Castro MD completed BLOOD COUNT HEMOGLOBIN Caesar Castro MD completed FRC - 84418 Caesar Castro MD complet ed SpO2 w/o 6min walk/titration Caesar Castro MD completed DLCO - 18992 Caesar Castro MD comple nedra Stress EKG [...] completed FVC / MVV with bronchodilator - 80474 Caesar Castro MD completed FRC - 38876 Caesar Castro MD complet ed SpO2 - 65445 Caesar Castro MD comple nedra DLCO - 19637 Caesar Castro MD comple nedra Loop Recorder [...] REMOTE </30 D TECH REVIEW completed SNOMED-CT: [id number] Current Medications Documented Caesar Castro MD completed Loop Recorder Interrogation, Remote Caesar Castro MD INTERROGATION EVALUATION REMOTE </30 D ILR SYS completed ICM Interrogation, Remote (Tech) Caesar Castro MD INTERROGATION EVAL REMOTE </30 D TECH REVIEW completed SNOMED-CT: [id number] Physical Exam, Performed: Pulse Exam of Foot Buddy Galindo MD completed SNOMED-CT: 639018727307398 Current Medications Documented Buddy Galindo MD completed Loop Recorder Interrogation, Remote Caesar Castro MD INTERROGATION EVALUATION REMOTE </30 D ILR SYS completed ICM Interrogation, Remote (Tech) Caesar Castro MD INTERROGATION EVAL REMOTE </30 D TECH REVIEW completed SNOMED-CT: 303165653327932 Current Medications Documented Caesar Castro MD completed Loop Recorder Interrogation, Remote Caesar Castro MD INTERROGATION EVALUATION REMOTE </30 D ILR SYS completed ICM Interrogation, Remote (Tech) Caesar Castro MD INTERROGATION EVAL REMOTE </30 D TECH REVIEW completed EKG Gloria Gonzales MD complet ed SNOMED-CT: 560932856439432 Current Medications Documented Gloria Gonzales MD completed Loop Recorder Interrogation, Remote Caesar Castro MD INTERROGATION EVALUATION REMOTE </30 D ILR SYS completed ICM Interrogation, Remote (Tech) Caesar Castro MD INTERROGATION EVAL REMOTE </30 D TECH REVIEW completed SNOMED-CT: 173934278423225 Current Medications Documented Caesar Castro MD completed SNOMED-CT: 510624418 Smoking Cessation Counseling Caesar Castro MD completed SNOMED-CT: 388386292576442 Current Medications Documented Caesar Castro MD completed SNOMED-CT: 161291373 Smoking Cessation Counseling Caesar Castro MD completed SNOMED-CT: 763761974653388 Current Medications Documented Caesar Castro MD completed BLOOD COUNT HEMOGLOBIN Caesar Castro MD completed FVC - 36493 Caesar Castro MD complet ed FRC - 05786 Caesar Castro MD complet ed DLCO - 85952 Caesar Castro MD comple nedra Stress EKG Aldo Haney MD completed Regadenoson, 4 units Caesar Castro MD completed Cardiolite, 2 units Caesar Castro MD completed SPECT Images Buddy Galindo MD complet ed Event Monitor Caesar Castro MD compl eted Event Monitor Caesar Castro MD compl eted SNOMED-CT: 596715160 Smoking Cessation Counseling Caesar Castro MD completed SNOMED-CT: 949003255051739 Current Medications Documented Caesar Castro MD completed
--- OUTSIDE RECORDS SUMMARY | 2025-02-27 07:14 | XMS_ITS | Data Portability ---
[facility] Organization [facility] Address [address] [place] [address] Care Team Providers Care Hog Grader Name Role Phone ROSSI NAHED Primary Care Provider LAXMI Deleon Leach Runner DIEGO HALL Locomotive Engineer Diesel Assessment Encounter Date Assessment Date Assessment LastModified [...] [email or web address] [facility], [address], [place], [address], 09/25/2024 14:28:18 CBC w/ auto diff 2023 025 [email or web address] [facility], [address], [place], [address], 09/25/2024 14:28:18 hepat ic funct ion panel , serum 2023 025 [email or web address] [facility], [address], [place], [address], 09/25/2024 14:28:18 BMP, serum or plasm a 2023 025 [facility], [address], [place], [address], 09/25/2024 14:28:18 TSH + free T4, serum 2023 025 [facility], [address], [place], [address], 09/25/2024 14:28:18 lipid panel , serum 2023 025 [facility], [address], [address], [place], [address], 09/25/2024 14:28:18 HbA1c (hemo globi n A1c), blood 2023 024 DUC [facility], [address], [address], [place], [address], 09/19/2024 10:35:40 insul in, serum 2023 024 DUC [facility], [address], [place], [address], 09/20/2024 15:25:07 CBC w/ auto diff 2023 024 [email or web address] [facility], [address], [place], [address], 09/20/2024 15:07:48 hepat ic funct ion panel , serum 2023 024 [email or web address] [facility], [address], [place], [address], 09/20/2024 15:07:31 BMP, serum or plasm a 2023 024 [facility], [address], [place], [address], 09/20/2024 15:06:51 TSH + free T4, serum 2023 024 [facility], [address], [address], [place], [address], 09/20/2024 15:07:18 lipid panel , serum 2023 024 [facility], [address], [place], [address], 09/20/2024 15:08:16 Referral podia trist refer ral 2024 025 [email or web address] [facility], [address] [facility], [place], [address], 02/20/2025 12:16:30 derma tolog ist refer ral 2023 024 DUC Marrero MD (Dermatology), [address] [facility] [address], [address], [place], [address], 12/19/2024 12:43:33 pain manag ement refer ral - Pleas e call pt to [facility] becca suggs, Thank you 2018 019 [email or web address] [facility], [address] [place], [address], 03/22/2019 11:14:25 Procedures colon oscop y proce dure (PROC ) 2023 024 [email or web address] [facility], [address] [place] [address] , [address], [place], [address], 02/20/2025 12:16:46 colon oscop y proce dure (PROC ) 2023 024 [email or web address] Mark Irizarry MD, [address], [address], [place], [address], 11/21/2024 16:04:57 Surgeries None recor ded. Imaging MAMMO , scree regan, digit al, bilat eral [address] [facility] (Radiology), [address] [facility] , [place], [address], 02/23/2025 12:01:24 MRI, brain , w/wo contr ast [address] (Imaging), [address], [place], [address], 02/14/2025 12:44:17 Medication Orders omepr azole 40 mg capsu le,de layed relea se 2023 024 [facility] [address] [place], [address], 02/19/2025 12:17:36 nysta tin 100,0 00 unit/ gram topic al powde r 2023 025 [facility] [address] [place], [address], 02/19/2025 12:17:38 nysta tin 100,0 00 unit/ gram topic al cream 2023 025 [facility] [address] [place], [address], 02/19/2025 12:17:33 fluco nazol e 100 mg table t 2023 024 [facility] [address] [place], [address], 09/25/2024 14:06:15 metfo rmin 500 mg table t 2023 024 [facility] [address] [facility] [place], [address], 08/22/2024 09:52:15 lovas tatin 20 mg table t 2023 [facility] [address], [address], [place], [address], 02/19/2025 12:17:09 cital opram 40 mg table t 2023 024 [facility] [address] [facility], [place], [address], 08/22/2024 09:52:14 valsa rtan 80 mg table t 2023 025 [facility] [address] [facility], [place], [address], 02/19/2025 12:18:43 hydro chlor othia zide 12.5 mg table t 2023 [facility] [address] [facility], [place], [address], 02/19/2025 12:16:43 magne sium 400 mg (as magne sium oxide ) capsu le 2018 019 [facility] [address], [address], [place], [address], 08/22/2024 09:17:06 Symbi lisseth 160 mcg-4 .5 mcg/a ctuat ion HFA aeros ol inhal er 2018 019 INTERFACE [facility] [address], [address], [place], [address], 02/06/2019 11:51:06 ProAi r HFA 90 mcg/a ctuat ion aeros ol inhal er 2018 019 [email or web address] [facility] [address], [address], [place], [address], 02/07/2019 09:41:06 Patient TargetsNo targets recorded. Patient Instructions Encounter Date Encounter Id Patient Instructions Last Modified By Organization Details Last Modified Time 02/06/2019 [id number] I have reviewed the provider's note and I agree with the documented assessment and plan. deshawn thomson Not available 02/15/2019 01:12:04 Reason for Referral Pain Management Referral for Spinal stenosis of lumbar region Please call pt to schedule appointment, Thank you Referring Physician: Nahed Ceballos, Internal Medicine, Encounter Date: 02/06/2019 Felter Tennis Balls Referral for C andidiasis of skin Referring Physician: Brenda Bowie, Internal Medicine, Encounter Date: 08/22/2024 Laminator Preforms Referral for Pain in left foot Referring Physician: Brenda Bowie, Internal Medicine, Encounter Date: 01/25/2025 Referring Physician: Brenda Bowie, Internal Medicine, Encounter Date: 02/19/2025 Results Created Date Observation Date Name Description Value Unit Range Abnormal Flag Note LastModifiedBy Organization Detail LastModifiedTime 02/16/2002/15/2025 CBC panel - Blood by Autom ated count leukocytes [#/volume] in blood 9.2 K/uL low: 4K/uLh igh: 9.8K/u L WBC 9.2 4.0 - 9.8 K/uL 02/15 3:48 AM [facility] Not [facility] Not Available 02/19/2025 03:41:52 02/16/2002/15/2025 CBC panel - Blood by Autom ated count RBC 4.64 text: 3.90 - 4.90 M/uL RBC 4.64 3.90 - 4.90 M/uL 02/15 3:48 AM CDT [employer] [facility] Not Available Not Available 02/19/2025 03:41:52 02/16/20 25 02/15/2025 CBC panel - Blood by Autom ated count hemoglobin 13.7 g/dL low: 11.8g/ dLhigh : 14.8g/ dL HEMOG LOBIN 13.7 11.8 - 14.8 g/dL 02/15 3:48 AM T [facility] Not Available Not Available 02/19/2025 03:41:52 02/16/2002/15/2025 CBC panel - Blood by Autom ated count hematocrit [volume fraction] of blood by automated count 42.6 % low: 35.5%h igh: 44% HEMAT OCRIT 42.6 35.5 - 44.0 % 02/15 3:48 AM T [facility] Not Available Not Available 02/19/2025 03:41:52 02/16/20 25 02/15/2025 CBC panel - Blood by Autom ated count MCV 91.8 fL low: 82fLhi gh: 99fL MCV 91.8 82.0 - 99.0 fL 02/15 3:48 AM [facility] Not Available Not Available 02/19/2025 03:41:52 02/16/20 25 02/15/2025 CBC panel - Blood by Autom ated count MCH 29.5 pg low: 27.2pg high: 32.6pg MCH 29.5 27.2 - 32.6 pg 02/15 3:48 AM [facility] Not Available Not Available 02/19/2025 03:41:52 02/16/20 25 02/15/2025 CBC panel - Blood by Autom ated count MCHC 32.2 g/dL low: 31.5g/ dLhigh : 35.5g/ dL MCHC 32.2 31.5 - 35.5 g/dL 02/15 3:48 AM [facility] Not Available Not Available 02/19/2025 03:41:52 02/16/20 25 02/15/2025 CBC panel - Blood by Autom ated count platelets [#/volume] in blood by automated count 232 K/uL low: 140K/u Lhigh: 350K/u L PLATE LETS 232 140 - 350 K/uL 02/15 3:48 AM T [facility] Not Available Not Available 02/19/2025 03:41:52 02/16/20 25 02/15/2025 CBC panel - Blood by Autom ated count MPV 10.5 fL low: 9.3fLh igh: 12.4fL MPV 10.5 9.3 - 12.4 fL 02/15 3:48 AM CDT [employer] [facility] Not Available Not Available 02/19/2025 03:41:52 02/16/20 25 02/15/2025 CBC panel - Blood by Autom ated count RDW 13.2 % low: 11.5%h igh: 14.5% RDW 13.2 11.5 - 14.5 % 02/15 3:48 AM CDT [employer] [facility] Not Available Not Available 02/19/2025 03:41:52 02/16/20 25 02/15/2025 CBC panel - Blood by Autom ated count RDW-stdev 44.8 fL low: 37.1fL high: 48.7fL RDW-S TDEV 44.8 37.1 - 48.7 fL 02/15 3:48 AM CDT [facility] Not Available Not Available 02/19/2025 03:41:52 02/16/20 25 02/15/2025 CBC panel - Blood by Autom ated count interpretati on and review of laboratory results Normal Not Available Not Available 01/24 03:41:52 02/16/20 25 02/15/2025 Compr ehens edu metab olic 1999 panel - Serum or Plasm a sodium [moles/volum e] in serum or plasma 141 mmol/ L low: 136mmo l/Lhig h: 145mmo l/L SODIU M 141 136 - 145 mmol/ L 02/15 4:22 AM CDT [employer] [facility] Not Available Not Available 02/19/2025 03:41:51 02/16/20 25 02/15/2025 Compr ehens edu metab olic 1999 panel - Serum or Plasm a potassium [moles/volum e] in serum or plasma 3.5 mmol/ L low: 3.5mmo l/Lhig h: 5mmol/ L POTAS SIUM 3.5 3.5 - 5.0 mmol/ L 02/15 4:22 AM [facility] Not Available Not Available 02/19/2025 03:41:51 02/16/20 25 02/15/2025 Compr ehens edu metab olic 1999 panel - Serum or Plasm a chloride 105 mmol/ L low: 98mmol /Lhigh : 107mmo l/L CHLOR ADRIEL 105 98 - 107 mmol/ L 02/15 4:22 AM [facility] Not Available Not Available 02/19/2025 03:41:51 02/16/20 25 02/15/2025 Compr ehens edu metab olic 1999 panel - Serum or Plasm a carbon dioxide, total [moles/volum e] in serum or plasma 25 mmol/ L low: 22mmol /Lhigh : 29mmol /L CO2 25 22 - 29 mmol/ L 02/15 4:22 AM [facility] Not Available Not Available 02/19/2025 03:41:51 02/16/20 25 02/15/2025 Compr ehens edu metab olic 1999 panel - Serum or Plasm a calcium 8.8 mg/dL low: 8.6mg/ dLhigh : 10.2mg /dL CALCI UM 8.8 8.6 - 10.2 mg/dL 02/15 4:22 AM [facility] Not Available Not Available 02/19/2025 03:41:51 02/16/20 25 02/15/2025 Compr ehens edu metab olic 2000 panel - Serum or Plasm a BUN 10 mg/dL low: 8mg/dL high: 23mg/d L BUN 10 8 - 23 mg/dL 02/15 4:22 AM [facility] Not Available Not Available 02/19/2025 03:41:51 02/16/20 25 02/15/2025 Compr ehens edu metab olic 2000 panel - Serum or Plasm a creatinine [mass/volume ] in serum or plasma 0.89 mg/dL low: 0.51mg /dLhig h: 0.95mg /dL CREAT ININE 0.89 0.51 - 0.95 mg/dL 02/15 4:22 AM T [facility] Not Available Not Available 02/19/2025 03:41:51 02/16/20 25 02/15/2025 Compr ehens edu metab olic 1999 panel - Serum or Plasm a glucose [mass/volume ] in serum or plasma 111 mg/dL low: 74mg/d Lhigh: 99mg/d L high GLUCO SE 111 (H) 74 - 99 mg/dL 02/15 4:22 AM T [facility] Not Available Not Available 02/19/2025 03:41:51 02/16/20 25 02/15/2025 Compr ehens edu metab olic 2000 panel - Serum or Plasm a total protein 6.2 g/dL low: 6.7g/d Lhigh: 8.6g/d L low TOTAL PROTE IN 6.2 (L) 6.7 - 8.6 g/dL 02/15 4:22 AM [facility] Not Available Not Available 02/19/2025 03:41:51 02/16/20 25 02/15/2025 Compr [employer] edu metab olic 2000 panel - Serum or Plasm a albumin 3.7 g/dL low: 3.5g/d Lhigh: 5.2g/d L ALBUM IN 3.7 3.5 - 5.2 g/dL 02/15 4:22 AM [facility] Not Available Not Available 02/19/2025 03:41:51 02/16/20 25 02/15/2025 Compr [employer] edu metab olic 2000 panel - Serum or Plasm a bilirubin total 0.6 mg/dL low: 0.2mg/ dLhigh : 1.1mg/ dL BILIR UBIN TOTAL 0.6 0.2 - 1.1 mg/dL 02/15 4:22 AM [facility] Not Available Not Available 02/19/2025 03:41:51 02/16/20 25 02/15/2025 Compr ehens edu metab olic 1999 panel - Serum or Plasm a alkaline phosphatase 79 U/L low: 35U/Lh igh: 104U/L ALKAL INE PHOSP HATAS E 79 35 - 104 U/L 02/15 4:22 AM CDT [facility] Not Available Not Available 02/19/2025 03:41:51 02/16/20 25 02/15/2025 Compr ehens edu metab olic 1999 panel - Serum or Plasm a AST 18 U/L high: 33U/L AST 18 <33 U/L 02/15 4:22 AM CDT [employer] [facility] Not Available Not Available 02/19/2025 03:41:51 02/16/20 25 02/15/2025 Compr ehens edu metab olic 1999 panel - Serum or Plasm a alanine aminotransfe rase [enzymatic activity/vol ume] in blood 16 U/L high: 34U/L ALT 16 <34 U/L 02/15 4:22 AM CDT [facility] Not Available Not Available 02/19/2025 03:41:51 02/16/20 25 02/15/2025 Compr ehens edu metab olic 1999 panel - Serum or Plasm a glomerular filtration rate [volume rate/area] in serum, plasma or blood by creatinine-b ased formula (CKD-epi 2020)/1.73 sq M text: mL/min /1.73 sq meter GFR >60 mL/mi n/1.7 3 sq meter 02/15 4:22 AM CDT [facility] Not Available Not Available 02/19/2025 03:41:51 02/16/20 25 02/15/2025 Compr ehens edu metab olic 1999 panel - Serum or Plasm a anion gap 11 mmol/ L low: 8mmol/ Lhigh: 16mmol /L ANION GAP 11 8 - 16 mmol/ L 02/15 4:22 AM CDT [employer] [facility] Not Available Not Available 02/19/2025 03:41:51 02/16/2002/15/2025 Compr ehens edu metab olic 2000 panel - Serum or Plasm a Unknown Analyte Sample s contai regan indocy anine green cause interf erence s on Total and/or Direct Biliru bin and must not be measur ed. Sampl es conta ining indoc monserrat e green cause inter feren joshua on Total and/o r Direc t Bilir ubin and must not be measu red. Not Available Not Available 02/19/2025 03:41:51 02/16/2002/15/2025 Compr ehens edu metab olic 2000 panel - Serum or Plasm a interpretati on and review of laboratory results Abnorm al Not Available Not Available 03:41:51 02/17/2002/16/2025 Basic metab olic 2000 panel - Serum or Plasm a sodium [moles/volum e] in serum or plasma 135 mmol/ L low: 136mmo l/Lhig h: 145mmo l/L low SODIU M 135 (L) 136 - 145 mmol/ L 02/16 7:23 AM [facility] Not Available Not Available 02/19/2025 03:41:52 02/17/2002/16/2025 Basic metab olic 2000 panel - Serum or Plasm a potassium [moles/volum e] in serum or plasma 4 mmol/ L low: 3.5mmo l/Lhig h: 5mmol/ L POTAS SIUM 4.0 3.5 - 5.0 mmol/ L 02/16 7:23 AM [facility] Not Available Not Available 02/19/2025 03:41:52 02/17/2002/16/2025 Basic metab olic 2000 panel - Serum or Plasm a chloride 103 mmol/ L low: 98mmol /Lhigh : 107mmo l/L CHLOR ADRIEL 103 98 - 107 mmol/ L 02/16 7:23 AM CDT [employer] [facility] Not Available Not Available 02/19/2025 03:41:52 04/02/16/2025 Basic metab olic 1999 panel - Serum or Plasm a carbon dioxide, total [moles/volum e] in serum or plasma 23 mmol/ L low: 22mmol /Lhigh : 29mmol /L CO2 23 22 - 29 mmol/ L 02/16 7:23 AM [facility] Not Available Not Available 02/19/2025 03:41:52 02/17/2002/16/2025 Basic metab olic 1999 panel - Serum or Plasm a calcium 9 mg/dL low: 8.6mg/ dLhigh : 10.2mg /dL CALCI UM 9.0 8.6 - 10.2 mg/dL 02/16 7:23 AM [facility] Not Available Not Available 02/19/2025 03:41:52 02/17/2002/16/2025 Basic metab olic 1999 panel - Serum or Plasm a BUN 10 mg/dL low: 8mg/dL high: 23mg/d L BUN 10 8 - 23 mg/dL 02/16 7:23 AM [facility] Not Available Not Available 02/19/2025 03:41:52 02/17/2002/16/2025 Basic metab olic 1999 panel - Serum or Plasm a creatinine [mass/volume ] in serum or plasma 0.77 mg/dL low: 0.51mg /dLhig h: 0.95mg /dL CREAT ININE 0.77 0.51 - 0.95 mg/dL 02/16 7:23 AM [facility] Not Available Not Available 02/19/2025 03:41:52 02/17/2002/16/2025 Basic metab olic 1999 panel - Serum or Plasm a glucose [mass/volume ] in serum or plasma 108 mg/dL low: 74mg/d Lhigh: 99mg/d L high GLUCO SE 108 (H) 74 - 99 mg/dL 02/16 7:23 AM [facility] Not Available Not Available 02/19/2025 03:41:52 02/17/2002/16/2025 Basic metab olic 2000 panel - Serum or Plasm a glomerular filtration rate [volume rate/area] in serum, plasma or blood by creatinine-b ased formula (CKD-epi 2020)/1.73 sq M text: mL/min /1.73 sq meter GFR >60 mL/mi n/1.7 3 sq meter 02/16 7:23 AM [facility] [employer] [facility] Not Available Not Available 02/19/2025 03:41:52 02/17/2002/16/2025 Basic metab olic 2000 panel - Serum or Plasm a anion gap 9 mmol/ L low: 8mmol/ Lhigh: 16mmol /L ANION GAP 9 8 - 16 mmol/ L 02/16 7:23 AM [facility] Not Available Not Available 02/19/2025 03:41:52 02/17/2002/16/2025 Basic metab olic 2000 panel - Serum or Plasm a interpretati on and review of laboratory results Abnorm al Not Available Not Available 03:41:52 02/17/2002/16/2025 CBC W Auto Diffe renti al panel - Blood leukocytes [#/volume] in blood 8.1 K/uL low: 4K/uLh igh: 9.8K/u L WBC 8.1 4.0 - 9.8 K/uL 02/16 7:04 AM [facility] Not Available Not Available 02/19/2025 03:41:52 02/17/2002/16/2025 CBC W Auto Diffe renti al panel - Blood RBC 4.67 text: 3.90 - 4.90 M/uL RBC 4.67 3.90 - 4.90 M/uL 02/16 7:04 AM [facility] Not Available Not Available 02/19/2025 03:41:52 02/17/20 25 02/16/2025 CBC W Auto Diffe renti al panel - Blood hemoglobin 13.9 g/dL low: 11.8g/ dLhigh : 14.8g/ dL HEMOG LOBIN 13.9 11.8 - 14.8 g/dL 02/16 7:04 AM [facility] Not Available Not Available 02/19/2025 03:41:52 02/17/2002/16/2025 CBC W Auto Diffe renti al panel - Blood hematocrit [volume fraction] of blood by automated count 43.6 % low: 35.5%h igh: 44% HEMAT OCRIT 43.6 35.5 - 44.0 % 02/16 7:04 AM [facility] Not Available Not Available 02/19/2025 03:41:52 02/17/2002/16/2025 CBC W Auto Diffe renti al panel - Blood MCV 93.4 fL low: 82fLhi gh: 99fL MCV 93.4 82.0 - 99.0 fL 02/16 7:04 AM [facility] Not Available Not Available 02/19/2025 03:41:52 02/17/2002/16/2025 CBC W Auto Diffe renti al panel - Blood MCH 29.8 pg low: 27.2pg high: 32.6pg MCH 29.8 27.2 - 32.6 pg 02/16 7:04 AM [facility] Not Available Not Available 02/19/2025 03:41:52 02/17/2002/16/2025 CBC W Auto Diffe renti al panel - Blood MCHC 31.9 g/dL low: 31.5g/ dLhigh : 35.5g/ dL MCHC 31.9 31.5 - 35.5 g/dL 02/16 7:04 AM [facility] Not Available Not Available 02/19/2025 03:41:52 02/17/2002/16/2025 CBC W Auto Diffe renti al panel - Blood RDW 13.1 % low: 11.5%h igh: 14.5% RDW 13.1 11.5 - 14.5 % 02/16 7:04 AM T [facility] Not Available Not Available 02/19/2025 03:41:52 02/17/2002/16/2025 CBC W Auto Diffe renti al panel - Blood RDW-stdev 44.6 fL low: 37.1fL high: 48.7fL RDW-S TDEV 44.6 37.1 - 48.7 fL 02/16 7:04 AM T [facility] Not Available Not Available 02/19/2025 03:41:52 02/17/2002/16/2025 CBC W Auto Diffe renti al panel - Blood platelets [#/volume] in blood by automated count 225 K/uL low: 140K/u Lhigh: 350K/u L PLATE LETS 225 140 - 350 K/uL 02/16 7:04 AM CDT [facility] Not Available Not Available 02/19/2025 03:41:52 02/17/20 25 02/16/2025 CBC W Auto Diffe renti al panel - Blood MPV 10.1 fL low: 9.3fLh igh: 12.4fL MPV 10.1 9.3 - 12.4 fL 02/16 7:04 AM [facility] Not Available Not Available 02/19/2025 03:41:52 02/17/2002/16/2025 CBC W Auto Diffe renti al panel - Blood neutrophils 62 % NEUTR OPHIL S 62 % 02/16 7:04 AM [facility] Not Available Not Available 02/19/2025 03:41:52 02/17/20 25 02/16/2025 CBC W Auto Diffe renti al panel - Blood lymphocytes/ leukocytes in blood by automated count 25 % LYMPH OCYTE S 25 % 02/16 7:04 AM [facility] Not Available Not Available 02/19/2025 03:41:52 02/17/20 25 02/16/2025 CBC W Auto Diffe renti al panel - Blood monocytes 10 % MONOC YTES 10 % 02/16 7:04 AM CDT [facility] Not Available Not Available 02/19/2025 03:41:52 02/17/2002/16/2025 CBC W Auto Diffe renti al panel - Blood eosinophils 2 % EOSIN OPHIL S 2 % 02/16 7:04 AM [facility] Not Available Not Available 02/19/2025 03:41:52 02/17/2002/16/2025 CBC W Auto Diffe renti al panel - Blood basophils 1 % BASOP HILS 1 % 02/16 7:04 AM [facility] Not Available Not Available 02/19/2025 03:41:52 02/17/2002/16/2025 CBC W Auto Diffe renti al panel - Blood immature granulocytes 0 % IMMAT URE GRANU LOCYT ES 0 % 02/16 7:04 AM T [facility] Not Available Not Available 02/19/2025 03:41:52 02/17/2002/16/2025 CBC W Auto Diffe renti al panel - Blood neutrophils [#/volume] in blood by automated count 5 K/uL low: 1.9K/u Lhigh: 7K/uL NEUTR OPHIL ABSOL [facility] 5.00 1.90 - 7.00 K/uL 02/16 7:04 AM [facility] Not Available Not Available 02/19/2025 03:41:52 02/17/2002/16/2025 CBC W Auto Diffe renti al panel - Blood lymphocyte absolute 2.06 K/uL low: 0.7K/u Lhigh: 4.5K/u L LYMPH OCYTE ABSOL [facility] 2.06 0.70 - 4.50 K/uL 02/16 7:04 AM [facility] Not Available Not Available 02/19/2025 03:41:52 02/17/2002/16/2025 CBC W Auto Diffe renti al panel - Blood monocyte absolute 0.85 K/uL low: 0.1K/u Lhigh: 1.3K/u L MONOC YTE ABSOL [facility] 0.85 0.10 - 1.30 K/uL 02/16 7:04 AM [facility] Not [facility] Not Available 02/19/2025 03:41:52 02/17/2002/16/2025 CBC W Auto Diffe renti al panel - Blood eosinophil absolute 0.16 K/uL low: 0K/uLh igh: 0.7K/u L EOSIN OPHIL ABSOL [facility] 0.16 0.00 - 0.70 K/uL 02/16 7:04 AM CDT [facility] Not Available Not Available 02/19/2025 03:41:52 02/17/2002/16/2025 CBC W Auto Diffe renti al panel - Blood basophils absolute 0.05 K/uL low: 0K/uLh igh: 0.2K/u L BASOP HILS ABSOL [facility] 0.05 0.00 - 0.20 K/uL 02/16 7:04 AM CDT [employer] [facility] Not Available Not Available 02/19/2025 03:41:52 02/17/2002/16/2025 CBC W Auto Diffe renti al panel - Blood immature granulocytes absolute 0.02 K/uL low: 0K/uLh igh: 0.03K/ uL IMMAT URE GRANU LOCYT ES ABSOL [facility] 0.02 0.00 - 0.03 K/uL 02/16 7:04 AM CDT [employer] [facility] Not Available Not Available 02/19/2025 03:41:52 01/12/2001/11/2019 MRI, lumba r spine , w/o contr ast No observ ation record ed. [facility] [address] [place], [address], 01/12/2019 11:22:18 03/24/20 19 03/24/2019 sacro iliac joint injec tion (PROC ) No observ ation record ed. [email or web address] [address] [place], [address], 03/28/2019 12:34:03 06/24/20 20 06/24/2020 imagi ng/di agnos tic resul t No observ ation record ed. [email or web address] [place] [address] [facility] [address], [place], [address], 06/25/2020 11:41:50 06/24/20 20 06/24/2020 imagi ng/di agnos tic resul t No observ ation record ed. [email or web address] [facility] [address], [place], [address], 06/25/2020 11:41:34 07/05/20 20 07/05/2020 elect rocar diogr am No observ ation record ed. [email or web address] [facility] [address], [place], [address], 07/10/2020 10:27:04 07/08/20 20 07/08/2020 elect rocar diogr am No observ ation record ed. [address] [facility] [address], [place], [address], 07/10/2020 10:26:53 08/28/20 20 06/08/2020 imagi ng/di agnos tic resul t No observ ation record ed. [email or web address] Not Available 2019 09:13:19 11/14/19 21 11/14/2020 exerc ise stres s test No observ ation record ed. [facility] [address], [place], [address], 11/18/2020 15:27:08 11/15/19 21 11/15/2020 US, carot id arter y No observ ation record ed. [facility] [address], [place], [address], 11/18/2020 15:28:06 11/26/19 21 11/25/2020 imagi ng/di agnos tic resul t No observ ation record ed. [email or web address] [facility] [address], [place], [address], 11/26/2020 12:25:26 03/14/20 21 02/21/2021 cardi ac telem etry No observ ation record ed. [facility] [address], [place], [address], 03/17/2021 11:35:47 08/11/20 22 08/11/2022 imagi ng/di agnos tic resul t No observ ation record ed. [facility] [address], [place], [address], 10/14/2022 16:10:57 09/23/20 22 09/15/2022 imagi ng/di agnos tic resul t No observ ation record ed. [facility] [address], [place], [address], 10/14/2022 16:11:17 09/28/20 22 09/28/2022 imagi ng/di agnos tic resul t No observ ation record ed. [facility] [address], [place], [address], 10/14/2022 16:11:23 09/28/20 22 09/28/2022 imagi ng/di agnos tic resul t No observ ation record ed. [facility] [address], [place], [address], 10/14/2022 16:11:29 09/28/20 22 09/28/2022 imagi ng/di agnos tic resul t No observ ation record ed. [facility] [address], [place], [address], 10/14/2022 16:11:36 04/06/20 23 04/06/2023 US, echo ardio gram No observ ation record ed. [facility] [address], [place], [address], 05/20/2023 11:17:42 04/16/20 23 04/15/2023 elect rocar diogr am No observ ation record ed. [facility] [address], [place], [address], 05/20/2023 11:17:53 04/16/20 23 04/16/2023 elect rocar diogr am No observ ation record ed. [facility] [address], [place], [address], 05/20/2023 11:17:58 04/16/20 23 04/16/2023 elect rocar diogr am No observ ation record ed. [facility] [address], [place], [address], 05/20/2023 11:18:06 04/16/20 23 , [facility] ardio gram No observ ation record ed. [facility] [address] [address], [place], [address], 05/20/2023 11:16:12 04/16/20 23 04/16/2023 elect rocar diogr am No observ ation record ed. [facility] [address], [place], [address], 05/20/2023 11:19:11 04/26/20 23 04/23/2023 elect rocar diogr am No observ ation record ed. [facility] [address], [place], [address], 05/20/2023 11:21:31 09/11/20 24 09/09/2024 MRI, foot, w/o contr ast No observ ation record ed. [address] [facility] [address], [place], [address], 09/11/2024 09:09:05 02/14/20 25 02/13/2025 MRI, brain , w/wo contr ast No observ ation record ed. [address], [place], [address], 02/13/2025 17:13:22 02/15/20 25 02/14/2025 XR, chest , 2 view No observ ation record ed. [address] [address], [place], [address], 02/17/2025 11:25:16 02/15/20 25 02/14/2025 CT, chest , w/ contr ast No observ ation record ed. [address], [place], [address], 02/17/2025 11:26:18 02/15/20 25 02/14/2025 US, joanale x, ancelmoou s, extre mity, compl ete No observ ation record ed. [address], [place], [address], 02/17/2025 11:27:00 02/24/20 25 02/23/2025 MAMMO , scree regan, digit al, bilat eral No observ ation record ed. [address] , [place], [address], 02/26/2025 15:47:44 Result Notes None recorded. Problems Name Problem SNOMED Code Status Onset Date Resolution Date Notes Provider Name and Address Organization Details Recorded Time Seizure disorder 568444022 Active 2017 per EEG, neuro consult, likely cause of syncope Nahed Ceballos PA-C Attn: Kelvin g,[address] [facility], [place], [address], [place] [facility] 8 13:18:49 Pulmonar y emphysem a 69435309 Active 2017 Nahed Ceballos PA-C Attn: Accountin g,[address] [facility], [place], [address], [place] [facility] 8 15:24:17 Ventricu lar tachycar elgin 94746192 Active 2017 Nahed Ceballos PA-C Attn: Accountin g,[address] [facility], [place], [address], [place] [facility] 8 12:51:31 Lumbago with sciatica 637644854 Active 2017 Nahed Ceballos PA-C Attn: Accountin g,[address] [facility], [place], [address], [place] [facility] 8 12:51:38 Body mass index measure ent [facility] [id number] 4108 Active 2023 ANA Wilson Attn: Accountin g,[address] [facility], [place], [address], [place] [facility] 4 09:26:37 Obesity 325878148 Active 2023 ANA Wilson Attn: Accountin g,[address] [facility], [place], [address], [place] [facility] 4 09:26:43 Benign essentia l hyperten ranjit 2958512 Active 2023 ANA Wilson Attn: Accountin g,[address] [facility], [place], [address], [place] [facility] 4 09:44:20 Long-ter m drug therapy Active 2023 ANA Wilson Attn: Accountin g,[address] [facility], [place], [address], [place] [facility] 4 09:44:25 Candidia sis of skin 85579588 Active 2023 ANA Wilson Attn: Accountin g,[address] [facility], [place], [place], [address] [place] [address], [place] [facility] 4 09:44:28 Prediabe edinson 283761301 Active 2023 ANA Wilson Attn: Accountin g,[address] [facility], [place], [place], [address] [place] [address], [place] [facility] 4 09:44:30 Acid reflux 103775432 Active 2023 ANA Wilson Attn: Accountin g,[address] [facility], [place], [place], [address] [place] [address] 2, [place] [facility] 4 09:45:06 History of polyp of colon 718349133 Active 2023 ANA Wilson Attn: Accountin g,[address] [place], [place], [address] [place] [address] 2, [place] [facility] 4 10:27:14 Mixed anxiety and depressi ve disorder 814621408 Active 2023 ANA Wilson Attn: Accountin g,[address] [place], [address] [place] [address], [place] [facility] 4 10:28:13 Positive screenin g for depressi on on PHQ-9 (Patient Health Question naire 9) 37607918110 9100 Active 2023 ANA Wilson Attn: Accountin g,[address] [place], [address] [place] [address] 2, [place] [facility] 4 10:29:09 Dizzines s 353747724 Active 2023 ANA Wilson Attn: Accountin g,[address] [place], [address] [place] [address] 2, [place] [facility] 4 14:44:11 Pain in left foot 49981674233 9107 Active 2024 ANA Wilson Attn: Accountin g,[address] [facility], [place], [address], [place] [facility] 5 14:17:25 History of fracture 887588206 Active 2024 ANA Wilson Attn: Kelvin pratt,[address] [facility], [place], [address], [place] [facility] 5 14:17:26 Overweig ht in adulthoo d with body mass index of 25 or more but less than 30 675887303 Active 2024 Dax Bazan [place], [place] [facility] 5 12:19:55 Ex-smoke r 0499995 Active 2024 ANA Wilson Attn: Kelvin pratt,[address] [facility], [place], [address], [place] [facility] 5 12:56:19 Acute deep vein thrombos is of lower limb 11420734098 8 Active 2024 ANA Wilson Attn: Kelvin pratt,[address] [facility], [place], [address], [place] [facility] 5 12:56:21 Pulmonar y embolism 52092014 Active 2024 ANA Wilson Attn: Kelvin pratt,[address] [facility], [place], [address], [place] [facility] 5 12:56:22 Essentia l hyperten ranjit 84873589 Active Dakota Kunche [place], [place] [facility] 6 15:32:14 Hyperlip idemia 14976628 Active [place] Kunche [place] [facility] 6 15:32:14 Panic disorder 267176169 Active Dakota Kunche [place], [place] [facility] 5 11:55:48 Vitamin D deficien cy 68487802 Active [place] Kunche [place] [facility] 6 15:32:14 Hypergly cemia 11748178 Active 02/2017 A1c 6.1% Nahed Ceballos PA-C Attn: Kelvin pratt,[address] [facility], [place], [address], [place] [facility] 7 15:53:42 Pain of shoulder region 55485224 Active Dakota De Leon [place] [facility] 6 15:32:14 Tired 638178409 Active [place] De [place] [facility] 6 15:32:14 Chronic obstruct edu pulmonar y disease 21145457 Active 2015 Nahed Ceballos PA-C Attn: Kelvin pratt,[address] [facility], [place], [address], [place] [facility] 6 09:43:44 Syncope and collapse 815878272 Completed 201504/04/2018 06/27/2014 ECHO - normal Removal Reason: new dx (syncope ) Nahed Ceballos PA-C Attn: Kelvin pratt,[address] [facility], [place], [address], [place] [facility] 8 12:41:52 Iron deficien cy anemia 22314017 Active 2016 Nahed Ceballos PA-C Attn: Klevin pratt,[address] [facility], [place], [address], [place] [facility] 7 09:14:26 Polyp of colon 39556575 Active 2013 prox ascendin g colon; rectum. few divertic anthony in distal descendi ng colon & distal sigmoid Nahed Ceballos PA-C Attn: Kelvin pratt,[address] [facility], [place], [address], [place] [facility] 7 14:51:01 Divertic ular disease 858548540 Active 2016 noted on colonosc opy at distal descendi ng & sigmoid colon Nahed Ceballos PA-C Attn: Kelvin pratt,[address] [facility], [place], [address], [place] [facility] 7 14:51:28 Gastroes ophageal reflux disease without esophagi tis 265593761 Active 2016 Nahed Ceballos PA-C Attn: Kelvin pratt,[address] [facility], [place], [address], [facility] - [facility] 7 14:51:59 Osteonec rosis of hip 469178984 Active 2016 Nahed Ceballos PA-C Attn: Kelvin pratt,[address] [facility], [place], [address], [facility] 7 14:52:18 Malignan t tumor of breast 450047848 Completed 201611/23/2016 Nahed Ceballos PA-C Attn: Kelvin pratt,[address] [facility], [place], [address], [facility] - [facility] 7 14:52:35 Obstruct edu sleep apnea syndrome 77809039 Active 2016 mild, rec CPAP 8cm H2O Nahed eCballos PA-C Attn: Kelvin pratt,[address] [facility], [place], [address], [facility] - [facility] 7 14:53:41 Osteopor osis 53160676 Active 2016 Nahed Ceballos PA-C Attn: Kelvin pratt,[address] [facility], [place], [address], [facility] - [facility] 7 11:22:30 Problem Notes None recorded. Procedures Surgical History Date Name Laterality Status Provider Name and Address Organization Details Recorded Time 10/06/20 18 percutaneous radiofrequency ablation of epicardium completed Nahed Ceballos PA-C Attn: Accounting,[address] [facility], [place], [address], [facility] - [facility] 10/19/2018 10:24:13 05/17/20 18 Nebulizer tx completed Nahed Ceballos PA-C Attn: Accounting,[address] [facility], [place], [address], [facility] 05/18/2018 13:21:28 07/31/20 17 Most Recent Mammogram completed Ilene Llanes [place] - [facility] 06/10/2017 11:41:47 05/10/20 17 Nebulizer tx completed Nahed Ceballos PA-C Attn: Accounting,[address] [facility], [place], [address], [facility] 05/10/2017 15:52:58 11/24/19 17 Nebulizer tx completed Nahed Ceballos PA-C Attn: Accounting,[address] [facility], [place], [address], [facility] 11/24/2016 13:43:49 11/17/19 17 Nebulizer tx completed Nahed Ceballos PA-C Attn: Accounting,[address] [facility], [place], [address], [facility] - [facility] 11/17/2016 09:14:16 09/07/20 16 Nebulizer tx completed Nahed Ceballos PA-C Attn: Accounting,[address] [facility], [place], [address], [facility] - [facility] 09/07/2016 09:57:51 07/05/20 16 Wrist Surgery completed Nahed Ceballos PA-C Attn: Accounting,[address] [facility], [place], [address], [facility] - [facility] 10/19/2018 10:22:28 07/12/20 14 Colonoscopy completed Nahed Ceballos PA-C Attn: Accounting,[address] [facility], [place], [address], [facility] 11/23/2016 14:49:32 Joint Replacement completed Nahed garcia PA-C Attn: Accounting,[address] [facility], [place], [address], [facility] 11/23/2016 14:55:02 Breast Surgery completed Dakota De Leon [facility] 09/04/2015 11:27:43 Mastectomy completed Joan Jose MA [place] - [facility] 09/04/2015 11:03:09 Appendectomy completed Dakota De Leon [place] - [facility] 09/04/2015 11:28:41 Imaging Results Imaging Date Name Status LastModified by Organization Details LastModified Time 01/11/2019 MRI, lumbar spine, w/o contrast completed [facility] [address] [place], [address], 01/12/2019 11:22:18 03/24/2019 sacroiliac [facility] (PROC[facility] [address] [place], [address], 03/28/2019 12:34:03 06/24/2020 imaging/diagnostic result completed [email or web address] [facility] [address], [place], [address], 06/25/2020 11:41:50 06/24/2020 imaging/diagnostic result completed [email or web address] [facility] [address], [place], [address], 06/25/2020 11:41:34 07/05/[email or web address] [facility] [address], [place], [address], 07/10/2020 10:27:04 07/08/[email or web address] [facility] [address], [place], [address], 07/10/2020 10:26:53 06/08/2020 imaging/diagnostic result [place] [address] Information not available 10/01/2020 09:13:19 11/14/2020 exercise stress test completed [facility] [address], [place], [address], 11/18/2020 15:27:08 11/15/2020 US, carotid artery completed [facility] [address], [place], [address], 11/18/2020 15:28:06 11/25/2020 imaging/diagnostic result completed [address] [facility] [address], [place], [address], 11/26/2020 12:25:26 02/21/2021 cardiac telemetry [place] [address] [facility] [address], [place], [address], 03/17/2021 11:35:47 08/11/2022 [facility] [address], [place], [address], 10/14/2022 16:10:57 09/15/2022 [facility]diagn[facility] [address], [place], [address], 10/14/2022 16:11:17 09/28/2022 [facility]diagn[facility] [address], [place], [address], 10/14/2022 16:11:23 09/28/2022 [facility]diagnostic [facility] [address], [place], [address], 10/14/2022 16:11:29 09/28/2022 [facility]diagnostic [facility] [address], [place], [address], 10/14/2022 16:11:36 04/06/2023 US, [facility] [address], [place], [address], 05/20/2023 11:17:42 04/15/2023 electrocardiogram [facility] [address], [place], [address], 05/20/2023 11:17:53 04/16/2023 electrocardiogram [facility] [address], [place], [address], 05/20/2023 11:17:58 04/16/[address] [facility] [address], [place], [address], 05/20/2023 11:18:06 04/16/2023 US, echocardiogram completed [facility] [address], [place], [address], 05/20/2023 11:16:12 04/16/[address] [facility] [address], [place], [address], 05/20/2023 11:19:11 04/23/[address] [facility] [address], [place], [address], 05/20/2023 11:21:31 09/09/2024 MRI, foot, w/o contrast completed [address] [facility] [address], [place], [address], 09/11/2024 09:09:05 02/13/2025 MRI, brain, w/wo contrast completed [address], [address], 02/13/2025 17:13:22 02/14/2025 XR, chest, [address], [address], 02/17/2025 11:25:16 02/14/2025 CT, chest, w/ contrast completed [address], [address], 02/17/2025 11:26:18 02/14/2025 US, duplex, venous, extremity, complete completed [facility] [address], [place], [address], 02/17/2025 11:27:00 02/23/2025 MAMMO, screening, digital, bilateral completed [facility] [address] , [place], [address], 02/26/2025 15:47:44 Procedure Notes None recorded. Medical Equipment None Reported. Allergies No known drug allergies Medications Name Sig Start Date Stop Date Status Note LastModified by Organization Details LastModified Time symbicort 160-4.5 mcg/act aero Take 2 puffs twice a day active Not Available Not Available No t Available amoxicill in 500 mg caps active Not Available Not Available Not Available vitamin d 19277 unit caps active Not Available Not Available No t Available afluria pf 3352-8018 .5 ml raji active Not Available Not [...] Not Available Not Available citalopra m hydrobrom adriel 20 mg tabs Take 1 tablet by [...] Not Available citalopra m 40 mg tablet Take 1 tablet every day by oral route for 90 days. active Not Available Not Available No [...] AND THEN REPEAT DOSE IN ONE WEEK 02/19 completed Not Available Not Available Not Available levetirac etam 500 mg tablet TAKE [...] USE ON FACE OR IN BODY FOLDS) 02/19 completed Not Available Not Available Not Available valsartan 80 mg tablet TAKE 1 TABLET BY MOUTH ONCE DAILY 02/19 completed Not Available Not Available Not Available Advair Diskus 100 mcg-50 mcg/dose powder for inhalatio n Inhale 1 puff twice a day by inhalati on route. 02/06 completed Not Available Not Available Not Available sulfameth oxazole 800 mg-trimet hoprim 160 mg tablet Take 1 tablet every 12 hours by oral route for 7 days. 04/04 completed Not Available Not Available Not Available omeprazol e 40 mg capsule,d elayed release Take 1 capsule every day by oral route for 90 days. active Not Available Not Available No [...] TAKE 1 TABLET BY MOUTH ONCE DAILY 02/19 completed Not Available Not Available Not Available levetirac etam 250 mg tablet Take [...] 100,000 unit/gram topical cream APPLY TO THE largely AFFECTED AREA(S) of abdomen, breast, buttock BY TOPICAL ROUTE 2 TIMES PER DAY 02/19 completed Not Available Not Available Not Available ranitidin e 150 mg tablet Take [...] RELIEP AFTER 3RD DOSE, GO TO ER. 02/19 completed Not Available Not Available Not Available diclofena c sodium 75 mg tablet,de layed release active Not Available Not Available Not Available hydroxyzi ne HCl 25 mg tablet TAKE 1 TABLET BY MOUTH THREE TIMES DAILY NEEDED 02/19 completed Not Available Not Available Not Available Cartia XT 240 mg capsule,e xtended release Take one tablet by mouth daily 09/07 completed Not Available Not Available Not Available levetirac etam 750 mg tablet Take 1 tablet every day by oral route for 30 days. active Not Available Not Available No [...] RESOLVED USE TWICE WEEKLY FOR 6 MONTHS 02/19 completed Not Available Not Available Not Available nystatin 100,000 unit/gram topical powder APPLY TO THE AFFECTED AREA(S) of abdomen, breast, buttock BY TOPICAL ROUTE 2 TIMES PER DAY 02/19 completed Not Available Not Available Not Available cefuroxim e axetil 500 mg tablet active Not Available Not Available Not Available lovastati n 20 mg tablet Take 1 tablet every day by oral route for 100 days. active Not Available Not Available No [...] e 50 mcg/actua tion nasal spray,trice pension [place] 1 spray every day by intranas al [...] Available hydrochlo rothiazid e 12.5 mg tablet Take 1 tablet every day by oral route for 90 days. active Not Available Not Available No [...] completed Not Available Not Available Not Available apixaban 2.5 mg tablet Take 1 tablet twice a day by oral route. active eliquis Not Available Not Available No t Available Afluria 8460-5128 (PF) 45 mcg (15 mcg x 3)/0.5 [...] Updated DateTime 9 165.1 cm 33.2 kg/m2 78612.0 4 g 72 /min 16 /min 93 % 93 % 98.2 [degF] 134 mm[Hg] 84 mm[Hg] Karey Morgan [place] - [facility] 9 11:02:56 Date Recorded Body height Respiratory rate Oxygen saturation Oxygen saturation in Arterial blood by Pulse oximetry Heart rate Systolic blood pressure Diastolic blood pressure Provider Name and Address Organization Details Last Updated DateTime 4 165.1 cm 18 /min 97 % 97 % 75 /min 150 mm[Hg] 82 mm[Hg] Dax Bazan [place] [facility] 4 09:21:33 Date Recorded Systolic blood pressure Diastolic blood pressure Provider Name and Address Organization Details Last Updated DateTime 08/22/2024 140 mm[Hg] 90 mm[Hg] ANA Wilson Attn: Accounting,[address] [place], [address], [facility] 08/22/2024 09:44:02 Date Recorded Body height Body mass index (BMI) Body weight Respiratory rate Oxygen saturation Oxygen saturation in Arterial blood by Pulse oximetry Heart rate Systolic blood pressure Diastolic blood pressure Provider Name and Address Organization Details Last Updated DateTime 165.1 cm 30.6 kg/m2 54353 g 18 /min 96 % 96 % 73 /min 160 mm[Hg] 82 mm[Hg] Dax Bazan MA [facility] 14:09:58 Date Recorded Systolic blood pressure Diastolic blood pressure Systolic blood pressure Diastolic blood pressure Provider Name and Address Organization Details Last Updated DateTime 09/25/2024 130 mm[Hg] 82 mm[Hg] 132 mm[Hg] 84 mm[Hg] ANA Wilson Attn: Accounting ,[address] [place], [address] , [facility] 14:27:51 Date Recorded Body height Body mass index (BMI) Body weight Heart rate Oxygen saturation Oxygen saturation in Arterial blood by Pulse oximetry Systolic blood pressure Diastolic blood pressure Provider Name and Address Organization Details Last Updated DateTime 5 165.1 cm 30.6 kg/m2 64104.3 6 g 90 /min 91 % 91 % 132 mm[Hg] 90 mm[Hg] Lucius Perez MA [facility] 5 14:04:30 Date Recorded Respiratory rate Systolic blood pressure Diastolic blood pressure Provider Name and Address Organization Details Last Updated DateTime 01/25/2025 18 /min 120 mm[Hg] 80 mm[Hg] ANA Wilson Attn: Accounting, [address] [place], [address], [facility] 01/25/2025 14:21:31 Date Recorded Body height Body mass index (BMI) Body weight Oxygen saturation Oxygen saturation in Arterial blood by Pulse oximetry Heart rate Systolic blood pressure Diastolic blood pressure Provider Name and Address Organization Details Last Updated DateTime 165.1 cm 29.6 kg/m2 03935.4 4 g 97 % 97 % 70 /min 142 mm[Hg] 80 mm[Hg] Dax Bazan MA [facility] 12:22:43 Date Recorded Respiratory rate Systolic blood pressure Diastolic blood pressure Provider Name and Address Organization Details Last Updated DateTime 02/19/2025 18 /min 130 mm[Hg] 80 mm[Hg] ANA Wilson Attn: Accounting, [address] [facility], [place], [address], [facility] 02/19/2025 12:54:12 Social History Question Answer Notes LastModified by Organizat ion Details LastModified Time Tobacco Smoking Status Former Smoker quit in nov 2024 Lenore Santo karishma, [facility] 02/20/2025 12:16:05 Do You Have An Advance Directive? No rreiter Information not available 02/06/2019 What Is Your Level Of Alcohol Consumption? Occasional Information not available 09/07/2016 Are You Blind Or Do You Have Difficulty Seeing? No Glasses Information not available 08/22/2024 Is Blood Transfusion Acceptable In An Emergency? Yes [email or web address] Information not available 06/10/2017 What Is Your Level Of Caffeine Consumption? Occasional Information not available 09/07/2016 How Much Tobacco Do You Chew? None [facility] Information not available 06/10/2017 In The 14 [...] available 06/10/2017 What Is Your Occupation? [employer] Information not available 11/07/2018 Are There Any Guns Present In Your Home? No Information not available 08/22/2024 Live Alone Or With Others? Alone Information not available 06/10/2017 Marital Status Single Informati on not available 09/07/2016 What Was The Date Of Your Most Recent Tobacco Screening? 02/19/2025 Information not available 02/19/2025 How Many Children Do You Have? 0 [...] 06/10/2017 How Much Tobacco Do You Smoke? No Information not available 02/19/2025 General Stress Level High High At Work [email or web address] Information not available 04/04/2018 Do You Use Any Illicit Or Recreational Drugs? No Information not available 08/22/2024 Do You Use Sunscreen Routinely? No Information not available 06/10/2017 Has Tobacco Cessation Counseling Been Provided? Yes Information not available 02/19/2025 On What Date Was Tobacco Cessation Counseling Provided? 02/19/2025 Information not available 02/19/2025 How Many Years Have You Smoked Tobacco? [...] 11:03:09 Father Essential hypertension [email or web address] Not available 1 11/04/2014 11:03:09 Father Hypercholest erolemia crexford Not available 2016 11:43:29 Medical History Condition Response Coronary Artery Disease N Other N High Blood Pressure Y Atrial Fibrillation N Breast Cancer Y Thyroid Problems N Kidney or Bladder Problems N Lung Disease Y GI Problems Y Depression N COPD Y Blood Clots N Acne N Skin Problems Y Eating Disorder N Anemia Y Anesthesia Complications N Heart Attack (CT) N Headaches/Migraines N Ovarian Cancer N Diabetes Y Anxiety Disorder N Muscle, Joint, or Bone Problems N Blood [...] PPV23 2 completed Joan Jose MA null, [place] - [place] 09/04/2015 11:03:09 Influenza, split virus, trivalent, preservative 5 completed Dakota De Leon null, [place] - [place] 09/04/2015 11:30:14 Influenza, high-dose, trivalent, PF 4 completed ANA Wilson Attn: Accounting,[address] [facility], [place], [address], [facility] - [place] 08/22/2024 10:28:48 Tdap 5 completed Not Available [facility] 11/11/2019 02:29:59 Past Encounters Encounter ID Performer Location Encounter Start Date Encounter Closed Date Diagnosis/Indication Diagnosis SNOMED-CT Code Diagnosis ICD10 Code Diagnosis Note [id number] MD Arnaldo López (Adult Med) [address] [place] [address] 09/04/2015 10:33:47 09/04/2015 12:00:54 Essential hypertension 23223836 I10 Blood pressure well controlled . Continue same medication s. Low salt diet and regular exercise advised. Hyperlipidemia 03715154 E78.2 Continue Lovastatin Panic disorder 793683697 F41.0 Well controlled with Citalopram . History of malignant neoplasm of breast 477976864 Z85.3 B/L Mastecotmy and b/l breast implants. Vitamin D deficiency 347 04098 E55.9 Administra tion of diphtheria, pertussis, and tetanus vaccine 495446446 Z23 [id number] MD Arnaldo López (Adult Med) [address] [place] [address] 12/05/2015 13:47:42 12/06/2015 16:24:32 Essential hypertension 13347583 I10 Blood pressure well controlled . Continue same medication s. Low salt diet and regular exercise advised. Pain of sh oulder region 46863931 M25.511 X ray right shoulder. Refer to Physical therapy Hyperlipidemia 11911942 E78.2 LDL well controlled . Continue Lovastatin Vitamin D deficiency 347 45394 E55.9 Continue Vitamin D 50,000 units once weekly. Tired 226530558 R53.83 c/o tiredness. Check TSH. Hyperglycemia 71675426 R 73.9 Patient will do repeat fasting blood sugar and HBA1C. [id number] JIM Hall (Adult Med) [address] [place] [address] 09/07/2016 08:48:53 09/10/2016 16:17:03 Essential hypertension 20226338 I10 fair control with Cartia, did not take med this AM Hyperlipidemia 53549391 E78.5 recently evaluated by cardiology Hyperglycemia 73834151 R 73.9 Vitamin D deficiency 347 90375 E55.9 cont vit D supplement 50,000 iu weekly Pain of sh oulder region 17502262 M25.512 possible tendinitis s/p wrist fracture, follow up with ortho on 09/23 as scheduled Syncope and collapse 309 337249 R55 multiple episodes, negative cardiac cath. possible vasovagal w/ cough; possible TIA one year ago. Lesion of skin of face 5580311656 06 L98.9 cyst type lesion to center forehead by hair line s/p fall in March Chronic ob structive pulmonary disease 01647788 J44.9 J44.1 had PFT done & started on inhalers by cardiology . Not using albuterol, but increased symbicort instead [id number] JIM Hall (Adult Med) [address] [place] [address] 11/17/2016 08:10:08 11/17/2016 11:16:35 Syncope and collapse 831089367 R55 No syncopal episode since last visit. Cont to follow with cardiology with loop recordings . Recommend seeing neurology if cardiology workup is negative & pt continues to feel faint. Essential hypertension 80158831 I10 Did not take meds yet this AM. Generalize d osteoarthritis 931805871 M15.9 Cont to follow w/ ortho and physical therapy. Acute exac erbation of chronic obstructive pulmonary disease 394471318 J44.1 Improved aeration w/ albuterol nebulizer. Pt concerned w/ possible polyp in right nares. If not improvemen t with flonase, will refer to ENT. Iron defic iency anemia 05335937 D50.9 receiving iron infusions, last treatment tomorrow. Repeat CBC and iron levels in a few months. Need to sign med records release for Dr. Castro's office. Bone densi ty below reference range 059664271 R93.7 Will get Bone density results from [facility]. Has been over a year now since that study. [id number] JIM Hall (Adult Med) [address] [place] [address] 11/24/2016 11:44:13 11/24/2016 15:47:36 Acute exacerbation of chronic obstructive pulmonary disease 745683977 J44.1 persistent cough, discussed using symbicort only BID and ok to use albuterol Q4h PRN. Start medrol sameer for persistent coughing spasms, diminished air movement not improving w/ inhaled steroids. completed z-pack over the weekend Influenza vaccine needed 4895577535 106 Z23 hold for now due to illness, will give at f/u visit Osteoporosis 45567412 M8 1.0 of spine, discussed findings with patient. repeat bone density late Jun 2017. Talk w/ ortho and find out if ok to start fosomax after hardware is removed. Screening for malignant neoplasm of breast 030730173 Z12.31 [id number] JIM Hall (Adult Med) [address] [place] [address] 12/08/2016 13:50:36 12/08/2016 16:54:20 Chronic obstructive pulmonary disease 11192146 J44.9 J44.1 Improved, cont PRN mucinex & inhalers Onychomyco sis of toenails 483539502 B35.1 Rt great toe nail Pain in left foot 748795 0568 93901 M79.672 3rd toe radiating into lateral lower leg w/ weight bearing, see podiatry Syncope and collapse 309 918698 R55 No syncopal episode since last visit. loop recordings negative for cardiac cause of syncope. Recommend seeing neurology, reprinted referral contact info for patient Body mass index 30+ - obesity 581992512 Z68.39 patient encouraged to lose weight to help w/ back & joint pains. discussed core strengthen ing exercises. Osteoporosis 47586714 M8 1.0 of spine, recommend she talk w/ ortho and find out if ok to start fosomax after hardware is removed. Pain of sh oulder region 21669910 M25.512 rec'd injection, hasn't been able to see PT due to work schedule. Given AAOS shoulder conditioni ng exercises to start at home until she can see PT. [id number] JIM Hall (Adult Med) [address] [place] [address] 04/08/2017 10:02:22 04/12/2017 13:48:18 Screening for malignant neoplasm of breast 758070633 Z12.31 Abdominal pain 96447687 R10.9 dwp that abdominal sxs are concerning and not sure when CT abdomen ordered by cardioloog y will be approved, recommend she get abd x-ray to r/o partial SBO. Strongly encouraged her to see GI even w/o the CT abd results due. STOP ibuprofen use especially w/ history of severe reflux. Depressive disorder 7485 4023 F33.1 Pt counseled that bereavemen t depressive sxs are normal over her dog, increase citalopram for a short term while she is going through bereavemen t and mutliple health issues that are still being worked up. Osteonecrosis of hip 444 688375 M87.859 ortho evaluated & not a hardware problem but patient continues to have pain with walking. Will need to get records & CT of the hip from ortho, she was dx with bursitis and given steroid injection in October and completed PT, but pain persists. (Dr. Hedrick) Osteoporosis 49399784 M8 1.0 Ortho is ok wth her starting fosomax if needed. She cont to take calcium and vitamin D supplement s. Screening for malignant neoplasm of cervix 779759201 Z12.4 Administra tion of viral vaccine 92732832 Z23 [id number] JIM Hall (Adult Med) [address] [place] [address] 05/10/2017 15:19:26 05/10/2017 16:19:20 Chronic obstructive pulmonary disease 31895932 J44.1 restart symbicort, was controlled on that medication . improved aeration & rhonchi after nebulizer tx, slightly dizziness upon standing after tx. Syncope and collapse 309 813365 R55 No syncopal episode since last visit. loop recordings negative for cardiac cause of syncope. normal ECHO, mild diastolic dysfunctio n Obstructiv e sleep apnea syndrome 88503627 G47.33 Osteoporosis 98937683 M8 1.0 Ortho is ok wth her starting fosomax if needed. She cont to take calcium and vitamin D supplement s. Essential hypertension 15298293 I10 controlled after cardiology compressio n tx. cont current meds. Hyperglycemia 18705706 R 73.9 reviewed 02/2017 labs w/ patient, A1c is high 6.1% for non-diabet ic, she only eats one meal a day and denies eating sweets but she does like bread, chooses whole grain. Tobacco user 313461708 Z 72.0 patient again advised to quit smoking, has deferred any assistance . Body mass index 30+ - obesity 448564254 Z68.32 c/o difficulty losing weight, discussed increasing metabolism by eating more small meals a day rather than just one meal a day. cont to choose low fat, low sugar foods. [id number] MD Arnaldo Hua (RN REHAB) [address] [place] [address] 06/10/2017 11:20:21 09/27/2017 16:27:33 Gynecologic examination 89887130 Z01.411 Last pap 1990. Pap done. Screening for malignant neoplasm of breast 074024418 Z12.31 UTD Screening for malignant neoplasm of colon 751754826 Z12.11 UTD Screening for malignant neoplasm of respiratory tract 110489389 Z12.2 Obesity 052054873 E66.9 Nutrition and exercise discussed. Smoker 95707523 F17.200 Cessation discussed. Pt. does not want to quit. See above for lung cancer screening. [id number] MD Arnaldo White (Adult Med) [address] [place] [address] 10/07/2017 10:51:50 10/11/2017 15:31:33 Rib pain 608860943 R07.81 right side, persistent now causing her to stop activities . Neg CT abdomen this past year Syncope and collapse 309 574827 R55 Syncope in Jun. Negative cardiac w/u. discussed likely vasovagal reaction. She deferred neurology evaluation at this time. Neg head CT. Spasm 13588363 R25.2 ribs/torso area. Essential hypertension 74470736 I10 controlled after cardiology compressio n tx. cont current meds. Cont to monitor BP at home. [id number] MD Arnaldo White (Adult Med) [address] [place] [address] 01/12/2018 11:31:25 01/12/2018 17:13:47 Dysuria-frequency syndrome 3105538 R30.0 sxs for past week, UA showed trace LE, recommend getting culture prior to considerin g antibiotic s Abdominal pain 61560231 R10.11 R10.31 R10.12 multiple locations progressiv camron getting worse, worrisome for diverticul itis w/ known diverticul osis on colonoscop y Syncope and collapse 309 311388 R55 Has had 3-4 syncopal episodes since last visit in September, usually preceded by cough. To see neurology January 25. Cardiology w/u negative. Complainin g of - melena 738585366 K92.1 check CBC, cont to monitor BMs. History of anemia - iron deficient 519142838 Z86.2 repeat labs w/ report of dark stools in recent weeks Body mass index 30+ - obesity 083075027 Z68.33 working on weight loss using [employer]. Neuropathy 830176964 G62 .9 c/o toes on both feet w/ mild numbness in last few months. h/o hyperglyce val, worried about DM Gastroesop hageal reflux disease without esophagitis 010180236 K21.9 cont PPI. may need repeat EGD/colono scopy if signs of anemia on labs w/ reported few episodes of dark stools. Diverticular disease [address] scan to r/o acute infection w/ diffuse tenderness on exam and worsening pain over the last several seeks. Essential hypertension 44632559 I10 controlled after cardiology compressio n tx. cont current meds. Cont to monitor BP at home. Hyperglycemia 03931500 R 73.9 last A1c 6.1%, doing southHabeas diet now. [id number] MD Arnaldo White (Adult Med) [address] [place] [address] 04/04/2018 08:17:16 04/04/2018 09:44:57 Syncope and collapse 977307700 R55 neurologis t dx her w/ seizures [...] Keppra Gastroesop hageal reflux disease without esophagitis 093795483 K21.9 cont PPI, add PRN ranitidine for breakthrou gh. discussed possible side effect of keppra causing increased nausea, acid production . Also discussed NSAIDs & fosomax causing same. Osteoporosis 35500676 M8 1.0 Cont fosomax for another year, repeat Bone density next year (2019). cont to take calcium and vitamin D supplement s. Essential hypertension 39277121 I10 Pt reports feeling less fatigued when she took break from her meds this past weekend. Discussed need to wean off medication s rather than stopping suddenly. Also need to make sure BP stays controlled prior to stopping any meds. She has f/u with cardiology in the next few weeks, will get labs at that time. [id number] [facility] [address] [place] [address] 05/17/2018 14:47:01 05/18/2018 17:22:18 Chronic obstructive pulmonary disease 64996308 J44.1 advised to decrease symbicort to just 2 puffs BID; decrease ventolin use, start nebulizer up to 4 times a day for current exacerbati on Pulmonary emphysema 8743 3001 J43.2 mild to moderate centrilobu lar noted on CT chest 04/2018. she has stopped smoking since study was done. Leakage of breast implant 729717621 T85.43XA Right breast implant intracapsu lar rupture noted on CT chest. h/o silicone implants done when she was 24yo. Tobacco de pendence in remission 724773064 F17.201 she has quit smoking, she can cont e-cig w/o nicotine PRN Essential hypertension 74264932 I10 restarted her meds, BP is better. still feels tired. she hasn't rec'd full results of her loop recorder yet and has ECHO scheduled in 2 weeks. She would like labs drawn in this clinic, she will call with labs ordered by cardiology Infection of tooth 08411 8007 K04.7 treat w/ abx prior to dental work to correct cracked tooth [id number] MD Arnaldo White (Adult Med) [address] [place] [address] 09/19/2018 11:37:59 09/19/2018 14:46:14 Osteoporosis 47775343 M81.0 Pharmacy had not refilled her fosamax, recommend she restart and we can repeat DEXA one year from now since she hasn't taken med since March. Ventricula r tachycardia 41797794 I47.2 Likely cause of her syncopal episodes, [...] ok for pain. Otalgia of right ear 038 1604152 409819 H92.01 restart flonase Essential hypertension 15090995 I10 elevated this AM, hasn't taken meds yet, usually better controlled since she had ECP treatments . She has f/u with cardiology in preparatio n for AICD/pacem do Seizure disorder 1631882 02 G40.909 still taking keppra, possibly related to V-tach Lumbago with sciatica 20 9162088 M54.42 we will revisit once she has had all her cardiology procedures done. Cont home stretches & exercises, Tylenol for pain. [id number] MD Arnaldo White (Adult Med) [address] [place] [address] 11/07/2018 11:45:37 11/07/2018 17:40:11 Essential hypertension 89170202 I10 Better today; no pacemaker placed. EP ablation done Gastroesop hageal reflux disease without esophagitis 838642644 K21.9 cont PPI, and PRN ranitidine for break-thro ugh. discussed possible side effect of keppra causing increased nausea, acid production . Also discussed NSAIDs & fosomax causing same. Vitamin D deficiency 347 27303 E55.9 Cardiology labs showed it was 29. Restart vit D supplement 50,000 iu weekly, recommend goal of 40 or greater w/ her hx of osteoporos is Low back pain 420250751 M54.[address] Higgins for ortho. If he is not able to evaluate or treat her low back, pt will call here for ortho spine referral. Ventricula r tachycardia 03264935 I47.2 s/p EP ablation, she has not been dizzy. But induced a. flutter only. Stopped coumadin; w/ APARICIO we can try reducing CCB to immediate relase 60mg BID dose and possibly wean off med if HR cont to be well controlled . Cont carvedilol . Cardiology f/u not until December or so. Reviewed labs & studies done by cardiology Lumbar radiculopathy [address] Higgins for ortho; radiating into left pelvic area; not sure if left 3rd & 4th toes are from low back. Needs further eval, will start w/ x-rays and see what ortho recommends . [id number] Ho Rivas MD [facility] (Adult Med) [address] [place] [address] 02/06/2019 10:53:19 02/07/2019 09:30:13 Ventricular tachycardia 21074154 I47.2 s/p EP ablation, she has not been dizzy since then until the past week. APARICIO also resolved. Essential hypertension 90796962 I10 Controlled ; no pacemaker placed. EP ablation done. Cont carvedilol , diltiazem, hctz Hyperlipidemia 74383827 E78.5 labs were good in Sep. LDL 97, cont statin Chronic ob structive pulmonary disease 48633729 J44.1 no recent exacerbati on; cont current inhalers, advised again to quit smoking Tobacco user 370039614 Z 72.0 patient again advised to quit smoking, has deferred any assistance . she will consider vaping w/ decreased nicotine. Dizziness 218806565 R42 Had greatly improved when she had cardiac ablation done. Current sxs possibly due to allergies, restart flonase. She had to reschedule f/u with neurology. Seasonal a llergic rhinitis 474035902 J30.2 restart flonase Pruritic disorder 280690 002 L29.9 to right ear, try few drops of witch vipul oil at bedtime to right ear. Spinal pankaj nosis of lumbar region 40799969 M48.061 Reviewed MRI results w/ pt. disc bulging and stenosis most prominent at L3-4 and L4-5, reviewed distributi on of these nerves and that could explain some of her left hip pains. Has appt w/ U neurosurge on for further evaluation , she is reluctant to have any surgery, would consider injections first. She continues PT and that is only giving her minimal relief. she will consider CBD tx instead of marijuana to see if she still gets benefit w/o sedating effects of THC. [id number] Kendall Magana MD [facility] [place] [address] [place] [address] 08/22/2024 08:53:10 08/22/2024 10:47:59 Obesity 340535928 E66.9 discussed healthy diet, exercise, controllin g carbohydra edinson and added sugars in the diet Body mass index measurement declined 8773314406 60388 Z53.20 Patient declined weight today Chronic ob structive pulmonary disease 00851166 J44.9 Patient is stable on Symbicort and albuterol therapy Benign ess ential hypertension 9033512 I10 Boost to valsartan 80mg daily. BP is elevated 140/90 today. Refill hydrochlor othiazide 12.5 mg daily Hyperlipidemia 44897434 E78.5 Restart lovastatin 20 mg daily and check fasting lipid panel Mixed anxi ety and depressive disorder 275441970 F41.8 Refill citalopram 40 mg daily. Patient is stable Seizure disorder 3101150 02 G40.909 Patient is taking Keppra and follows with Neurology. She is unsure of how long it has been since she has had seizures. Greater than 6 months but under 2 years since last episode Obstructiv e sleep apnea syndrome 00383603 G47.33 wearing cpap nightly per patient report. Long-term drug therapy 860585567 Z79.891 All labs are due Candidiasis of skin 4988 3006 B37.2 Start intensive nystatin cream topped with powder and fluconazol e treatment course and refer promptly to Dermatolog y for more in-depth management Prediabetes 447917320 R7 3.03 Refill metformin 500 mg daily and check updated insulin and A1c labs Acid reflux 123010900 K2 1.9 Restart omeprazole 40 mg daily for reflux management . She had ran out of the prescripti on refills History of polyp of colon 816319660 Z86.0100 Patient has a history of colon polyps and is due for follow-up procedure Administra tion of influenza vaccine 35897555 Z23 Flu shot given today Positive s creening for depression on PHQ-9 (Patient Health Questionnaire 9) 3751996322 26296 Z13.31 Patient scored a 6 on screening today. Her citalopram is managing her mental health without acute concerns [id number] Kendall Magana MD [facility] [place] [address] [place] [address] 09/25/2024 13:41:52 09/25/2024 14:56:56 Benign essential hypertension 0338031 I10 bp much better on repeat checks today. 130/80 range. valsartan 80mg daily and HCTZ 12.5mg daily. Prediabetes 167201437 R7 3.03 5.8% A1c. Continue metformin 500 mg daily Hyperlipidemia 65122780 E78.5 Continue lovastatin 20 mg daily. Labs are stable repeat again in February Chronic ob structive pulmonary disease 52869673 J44.9 Patient is stable on Symbicort and albuterol therapy Mixed anxi ety and depressive disorder 713575704 F41.8 citalopram 40 mg daily. Patient is stable Acid reflux 183413937 K2 1.9 omeprazole 40 mg daily for reflux management . Symptoms are under good control now that she has restarted PPI therapy Seizure disorder 0976506 02 G40.909 Patient is taking Keppra and follows with Neurology. She is unsure of how long it has been since she has had seizures. Greater than 6 months but under 2 years since last episode Obstructiv e sleep apnea syndrome 06158596 G47.33 wearing cpap nightly per patient report. Obesity 866448920 E66.9 discussed healthy diet, exercise, controllin g carbohydra edinson and added sugars in the diet Long-term drug therapy 707877820 Z79.891 Next set of lab orders given for February History of polyp of colon 365632212 Z86.0100 Patient has a history of colon polyps and is due for follow-up procedure new referral given for [facility] rology because her insurance is not being accepted at [facility] any longer Dizziness 020940627 R42 Proceed with MRI of the brain with and without contrast for increasing ly progressiv e dizziness that is causing imbalance and difficulty staying steady at times. Screening mammography 24 956121 Z12.31 Mammogram order also given for [facility] Body mass index 30+ - obesity 262143584 Z68.30 BMI is 30.6 [id number] Kendall Magana MD [facility] [employer] [address] [place] [address] 01/25/2025 13:48:05 01/25/2025 14:42:58 Pain in left foot 2282140143 19598 M79.672 refer to [employer] consultant specific now to have fiscal specialist consult with her on her foot injury that occurred in 2022. Specifical ly to the [facility] in [place] History of fracture 3910 93959 Z87.81 hx of left traumatic foot fracture from metal frame approx 60 pounds that that directly fell on top of the left foot and fractured bones, and 6 months of walking boot. still in pain constant. [id number] Kendall Magana MD [facility] [employer] [address] [place] [address] 02/19/2025 12:02:57 02/19/2025 16:29:07 Overweight in adulthood with body mass index of 25 or more but less than 30 900847989 E66.3 Z68.29 discussed healthy diet, exercise, controllin g carbohydra edinson and added sugars in the diet Pulmonary embolism 59807 003 I26.99 Acute deep vein thrombosis of lower limb 4095934040 08 I82.492 Ex-smoker [id number] Z87.89 1 quite smoking in November after extensive hx Health Concerns Section Related Observation LastModified by Organization Detai ls LastModified Time None Recorded Concern Status LastModified by Organization Details LastModified Time None Recorded Advance Directives Directive N: Payers Encounter Date Sequence Insurance Name Policy Number Policy Thomas Covered Member ID Thomas Member ID Guarantor Name 02/06/2019 1 [facility] PRIOR TO 04/24/2021 (MEDICAID REPLACEMENT - HMO) Yajaira Minafrancesca [id number] Yajaira Salguerorendt 08/22/2024 1 [facility] (MEDICARE REPLACEMENT/AD VANTAGE - HMO) [id number] [employer] [id number] [employer] 09/25/2024 1 [facility] (MEDICARE REPLACEMENT/AD VANTAGE - HMO) [id number] [employer] [id number] [employer] 01/25/2025 1 [facility] (MEDICARE REPLACEMENT/AD VANTAGE - HMO) [id number] [employer]t [id number] [employer] Notes Date Note Type Note Provider Name and Address Organization Details Recorded Time 02/07/20 19 text/htm l Hypertension F/UReported bypatient.Associated [...] referred by ortho to see neurosurgeon at [facility]. MRI done. bending over causes pain into [...] now. Ho Rivas MD Attn: Accounting,[address] [facility], [place], [address], [facility] 02/15/2019 01:12:09 08/22/20 text/htm l Patient takes Keppra 500 mg twice daily for history of seizure disorder. She follows with Neurology and is stable. Dr. Vasquez is her neurologist. She has been seizure-free for: She is unsure. ANA Wilson Attn: Accounting,[address] [facility], [place], [address], [facility] 08/22/2024 10:29:27 08/22/20 text/htm l Anxiety/DepressionReported bypatient.Notes:Patient is stable on [...] mg daily. ANA Wilson Attn: Accounting,[address] [facility], [place], [address], [facility] 08/22/2024 10:29:27 09/25/20 24 [...] is unsure. ANA Wilson Attn: Accounting,[address] [facility], [place], [address], [facility] 09/25/2024 14:46:01 01/26/20 25 text/htm l FootReported bypatient.Notes:Injury to left foot february 17 2023, metal frame fell (60 pounds) on the left foot and broke two bones. in boot for 6 months, had crushed top of foot and nerve damage. Dr. hedrick saw her but doesn't do any pain management or foot focus. DR. Baldwin in [facility] and he completed injections into the foot. still with pain at dorsum of foot, pain is constant and walking is with chronic pain. she wants a referral to see [employer] bi consultant. Her old [employer] bi consultant retired. she wants to stay local for [employer] bi consultant. Dr. Baldwin is stating she needs more treatment, but patient states he is the doctor for work comp. ANA Wilson Attn: Accounting,[address] [facility], [place], [address], [facility] 02/18/2025 14:11:53 OBGyn Episode No OBEpisode recorded.
--- OUTSIDE RECORDS SUMMARY | 2025-02-27 07:14 | XMS_ITS | Clinical Summary ---
Author Organization [facility] Address [address] [place] [address] Care Team Providers Care Independent Trader Name Role Phone Zachary New MD Primary Care Provider [phone] Source Comments [facility],non-owned Affiliates and Associated Physician Practices is amultiple site organization consisting of ambulatory clinics and hospital sitesin [place], [place], [place] and [place]. This disclosure is being madepursuant to the Care Everywhere program and may not contain all information available regarding this patient. Last updated 18.[facility] Allergies No known active allergies Medications * Be aware that medications may not be up to date on this document. Alwaysverify current medications with the patient. albuterol HFA (VENTOLIN HFA) 108 (90 BASE) MCG/ACT inhaler 09/07/2016 Active dilTIAZem coated beads 24hr (CARTIA XT) 120 MG capsule 10/09/2016 Active lovastatin (MEVACOR) 20 MG tablet 10/09/2016 Active Cholecalciferol (VITAMIN D3) 26677 UNITS capsule 10/09/2016 Activ e omeprazole (PRILOSEC) [...] on file Legal Sex Female 5:46 PM [employer]GEN T[employer] F[employer]ER Gender Identity Not on file Sexual Orientation [...] patient's age to complete this topic Insurance [facility] Care Teams Independent Trader Relationship Specialty Start Date End Date Zachary New MD [address] [place] [address] PCP - General 11/29/12
--- OUTSIDE RECORDS SUMMARY | 2025-02-27 07:15 | XMS_ITS | Clinical Summary ---
Author Organization [facility] Address [address] [place] [address] Phone Care Team Providers Care Director Broadcast Name Role Phone Kendall Magana MD Primary Care Provider [phone] Allergies No known active allergies Medications budesonide-form oteroL (SYMBICORT) 160-4.5 mcg/actuation HFA Aerosol Inhaler Take 2 Puffs by inhalation 2 times daily. Active LOVASTATIN ORAL Take 20 mg by mouth daily. Active omeprazole (PriLOSEC) 20 mg Capsule, Delayed Release(E.C.) Take 40 mg by mouth daily. Active levETIRAcetam (KEPPRA) 500 mg tablet Take 500 mg by mouth 2 times daily. Active hydroCHLOROthia zide 12.5 mg tablet Take 12.5 mg by mouth daily. Active citalopram (CeleXA) 20 mg tablet Take 20 mg by mouth daily. Active metFORMIN (GLUCOPHAGE) 500 mg tablet Take 500 mg by mouth daily with breakfast. Active naproxen sodium (ALEVE) 220 mg Tablet Take 440 mg by mouth every 12 hours as needed for Pain, Moderate. Active apixaban (ELIQUIS) 5 mg tablet Take 2 Tablets (10 mg) by mouth 2 times daily for 7 days, THEN 1 Tablet (5 mg) 2 times daily. 88 Tablet 02/16/2025 12:29 PM CDT 03/25/20 Active Active Problems Problem Noted Date Diagnosed Date Seizure disorder 02/15/2025 Combined hyperlipidemia 02/15/2025 Benign essential HTN 02/15/2025 Type 2 diabetes mellitus wit hout complication, without long-term current use of insulin 02/15/2025 COPD (chronic obstructive pulmonary disease) Anxiety and depression 02/15/2025 Acute deep vein thrombosis ( DVT) of femoral vein of left lower extremity 02/15/2025 Acute pulmonary embolism 02/15/2025 Encounters Date Type Department Care Team Description 02/20/2025 External Device Data [facility] ABSTRACTION Provider, Abstract 02/20/2025 External Device Data [facility] ABSTRACTION Provider, Abstract 02/20/2025 External Device Data [facility] ABSTRACTION Provider, Abstract 02/15/2025 12:59 AM CDT - 02/16/2025 12:45 PM CDT Hospital Encounter [facility] [address] [place] [address] Aquiles Sanchez MD Weitzel, MD Vitor Carranza Vikram, MD Acute pulmonary embolism ([facility]) Discharge Disposition: Home or Self Care 02/15/2025 Travel from Last 3 Months Social History Tobacco Use Types Packs/Day Years Used Date Smoking Tobacco: Never Assessed Feeling Safe Answer Date Recorded Are you in a relationship wi th someone who hurts you emotionally and/or physically? No 02/15/2025 Food Insecurity Answer Date Recorded Patient needs follow up regardin 02/15/2025 Transportation Needs Answer Date Record ed Patient needs follow up regardin 02/15/2025 Utility Needs Answer Date Recorded Patient needs follow up regardin 02/15/2025 Comments Unknown Sex and Gender Information Value Date Recorded Sex Assigned at Not on file Legal Sex Female 8:46 PM CDT Gender Identity Not on file Sexual Orientation Not on file Last Filed Vital Signs Vital Sign Reading Time Taken Comments Blood Pressure 114/73 02/16/2025 11:04 AM CDT Pulse 69 02/16/2025 3:13 AM CDT Temperature 36.3 C (97.4 F) 02/16/2025 11:04 AM CDT Respiratory Rate 20 02/16/2025 9:08 AM CDT Oxygen Saturation 92% 02/16/2025 9:08 AM CDT Inhaled Oxygen Concentration - - Weight 84 kg (185 lb 3 oz) 02/15/2025 1:21 AM CD T Height 167.6 cm (5' 6 ) 02/15/2025 1:21 AM CDT Body Mass Index 29.89 02/15/2025 1:21 AM CDT Plan of Treatment Upcoming Encounters Date Type Department Care Team (Late st Contact Info) Description 03/09/2025 2:30 PM CDT Office Visit [facility] Oncology and Hematology - [place] [address] [place] [address] Johnathon Osei MD [address] [place] [address] Health Maintenance Due Date Last Done Comments DIABETES ANNUAL FOOT EXAM 1972 DIABETES ANNUAL RETINAL EXAM 1972 DIABETES HBA1C Q 6 MONTHS 1972 DIABETES MICROALBUMIN ANNUAL SCREEN 1972 LDL CHOLESTEROL ANNUAL 1972 BREAST CANCER SCREENING 1994 FIT-DNA Q 3 years 1999 FIT/FOBT Q 1 year 1999 Flex Sig/CT Colonography Q 5 years 1999 ZOSTER VACCINE (1 of 2) 2004 RSV VACCINE (60+ or ) (1 - Risk 60-74 years 1-dose series) 2014 OSTEOPOROSIS SCREENING 2019 PNEUMOCOCCAL VACCINE 50+ YEA RS (3 of 3 - PCV20 or PCV21) 08/05/2025 08/05/2020, 10/25/2011 DTAP/TDAP/TD VACCINES (2 - T d or Tdap) 09/04/2025 09/04/2015 COLORECTAL SCREENING 02/07/2032 02/06/2022, 07/12/20 14 Colorectal Cancer Screening 02/07/2032 INFLUENZA VACCINE Completed 08/22/2024, , 08/13/2015 Procedures Procedure Name Priority Date/Time Associated Diagnosis Comments POC GLUCOSE Routine 02/16/2025 8:13 AM CDT UNFRACTIONATED HEPARIN ACTIVITY Timed Study 02/16/2025 6:26 AM CDT BASIC METABOLIC PANEL Routine 02/16/2025 6:26 AM CDT CBC WITH DIFFERENTIAL Routine 02/16/2025 6:26 AM CDT POC GLUCOSE Routine 02/16/2025 3:35 AM CDT UNFRACTIONATED HEPARIN ACTIVITY Timed Study 02/16/2025 12:01 AM CDT POC GLUCOSE Routine 02/15/2025 11:55 PM CDT POC GLUCOSE Routine 02/15/2025 9:49 PM CDT UNFRACTIONATED HEPARIN ACTIVITY Timed Study 02/15/2025 6:04 PM CDT POC GLUCOSE Routine 02/15/2025 5:05 PM CDT ECHOCARDIOGRAM W/ CONTRAST AGENT Routine 02/15/2025 1:18 PM CDT POC GLUCOSE Routine 02/15/2025 12:05 PM CDT UNFRACTIONATED HEPARIN ACTIVITY Timed Study 02/15/2025 9:15 AM CDT POC GLUCOSE Routine 02/15/2025 8:18 AM CDT POC GLUCOSE Routine 02/15/2025 4:36 AM CDT UNFRACTIONATED HEPARIN ACTIVITY Routine 02/15/2025 3:12 AM CDT PTT Routine 02/15/2025 3:12 AM CDT CBC WITHOUT DIFFERENTIAL Routine 02/15/2025 3:12 AM CDT COMPREHENSIVE METABOLIC PANEL Routine 02/15/2025 3:12 AM CDT POC GLUCOSE Routine 02/15/2025 1:47 AM CDT from Last 3 Months Results * (ABNORMAL) POC GLUCOSE (02/16/2025 8:13 AM CDT) Only the most recent of9 resultswithin the time period is included. [facility] Signature GLUCOSE POC 113(H) 74 - 99 mg/dL 02/16/2025 8:13 AM CDT [facility] SPECIMEN SOURCE, GLUCOSE POC Whole Blood 02/16/2025 8:13 AM CDT [facility] Blood, whole 02/16/2025 8:13 AM CDT 02/16/2025 8:24 AM CDT Domingo Adler MD POINT OF CARE TESTING Final Re sult [facility] CLIA# [id number] [address] [place] [id number] * UNFRACTIONATED HEPARIN MONITORING (02/16/2025 6:26 AM CDT) Only the most recent of5 resultswithin the time period is included. [facility] ANTI-XA UNFRAC HEP 0.65 See Interpreta tion. IU/mL 02/16/2025 7:09 AM CDT [facility] Blood Venipuncture / Unknown 02/16/2025 6:26 AM CDT 02/16/2025 6:46 AM CDT Narrative [facility] - 02/16/2025 7:09 AM CDT Unfractionated Heparin Therapeutic Range: 0.30-0.70 IU/ml Refer to pharmacy adult heparin protocol for further recommendation. The reference range for this test is specific to the anticoagulant and is not appropriate for monitoring patients on a DOAC protocol. us Domingo Adler MD HEMATOLOGY ORDERABLES Final Re sult [facility] CLIA# [id number] [address] [place] [address] * CBC WITH DIFFERENTIAL (02/16/2025 6:26 AM CDT) [facility] WBC 8.1 4.0 - 9.8 K/uL 02/16/2025 7:04 AM CDT [facility] RBC 4.67 3.90 - 4.90 M/uL 02/16/2025 7:04 AM CDT [facility] HEMOGLOBIN 13.9 11.8 - 14.8 g/dL 02/16/2025 7:04 AM CDT [facility] HEMATOCRIT 43.6 35.5 - 44.0 % 02/16/2025 7:04 AM CDT [facility] MCV 93.4 82.0 - 99.0 fL 02/16/2025 7:04 AM CDT [facility] MCH 29.8 27.2 - 32.6 pg 02/16/2025 7:04 AM CDT [facility] MCHC 31.9 31.5 - 35.5 g/dL 02/16/2025 7:04 AM CDT [facility] RDW 13.1 11.5 - 14.5 % 02/16/2025 7:04 AM CDT [facility] RDW-STDEV 44.6 37.1 - 48.7 fL 02/16/2025 7:04 AM CDT [facility] PLATELETS 225 140 - 350 K/uL 02/16/2025 7:04 AM CDT [facility] MPV 10.1 9.3 - 12.4 fL 02/16/2025 7:04 AM CDT [facility] NEUTROPHILS 62 % 02/16/2025 7:04 AM CDT [facility] LYMPHOCYTES 25 % 02/16/2025 7:04 AM CDT [facility] MONOCYTES 10 % 02/16/2025 7:04 AM CDT [facility] EOSINOPHILS 2 % 02/16/2025 7:04 AM CDT [facility] BASOPHILS 1 % 02/16/2025 7:04 AM CDT [facility] IMMATURE GRANULOCYTES 0 % 02/16/2025 7:04 AM CDT [facility] NEUTROPHIL ABSOLUTE 5.00 1.90 - 7.00 K/uL 02/16/2025 7:04 AM CDT [facility] LYMPHOCYTE ABSOLUTE 2.06 0.70 - 4.50 K/uL 02/16/2025 7:[address] [facility] MONOCYTE ABSOLUTE 0.85 0.10 - 1.30 K/uL 02/16/2025 7:[address] [facility] EOSINOPHIL ABSOLUTE 0.16 0.00 - 0.70 K/uL 02/16/2025 7:[address] [facility] BASOPHILS ABSOLUTE 0.05 0.00 - 0.20 K/uL 02/16/2025 7:04 AM CDT [facility] IMMATURE GRANULOCYTES ABSOLUTE 0.02 0.00 - 0.03 K/uL 02/16/2025 7:04 AM CDT [facility] Blood Venipuncture / Unknown 02/16/2025 6:26 AM CDT 02/16/2025 6:46 AM CDT us Domingo Adler MD HEMATOLOGY ORDERABLES Final Re sult [facility]# [id number] [address] [place] [address] [place] [address] * (ABNORMAL) BASIC METABOLIC PANEL (02/16/2025 6:26 AM CDT) SODIUM 135(L) 136 - 145 mmol/L 02/16/2025 7:23 AM CDT [facility] POTASSIUM 4.0 3.5 - 5.0 mmol/L 02/16/2025 7:23 AM CDT [facility] CHLORIDE 103 98 - 107 mmol/L 02/16/2025 7:[address] [facility] CO2 23 22 - 29 mmol/L 02/16/2025 7:23 AM CDT [facility] CALCIUM 9.0 8.6 - 10.2 mg/dL 02/16/2025 7:23 AM CDT [facility] BUN 10 8 - 23 mg/dL 02/16/2025 7:23 AM [facility] CREATININE 0.77 0.51 - 0.95 mg/dL 02/16/2025 7:23 AM [facility] Comment:The GFR result is no t clinically significant on patients <18 or >70 years of age. GLUCOSE 108(H) 74 - 99 mg/dL 02/16/2025 7:23 AM [facility] GFR >60 mL/min/1.7 3 sq meter 02/16/2025 7:23 AM [facility] Comment:eGFR calculated with 2020 CKD-EPI equation. Vegetarian diet, extremely high or low muscle mass, and may affect results. Cystatin C with Glomerular Filtration Rate is a suitable alternative for these patients. ANION GAP 9 8 - 16 mmol/L 02/16/2025 7:[address] [facility] Blood Venipuncture / Unknown 02/16/2025 6:26 AM CDT 02/16/2025 6:46 AM CDT us Domingo Adler MD CHEMISTRY ORDERABLES Final Res ult [facility]# [id number] [address] [place] [id number] * ECHOCARDIOGRAM W/ CONTRAST AGENT (02/15/2025 1:18 PM CDT) EJECTION FRACTION 45 INTERFACE SYSTEM 02/15/2025 12:4 1 PM CDT Narrative INTERFACE SYSTEM - 02/15/2025 4:44 PM CDT [address] [address] [place] [address] [email or web address] Transthoracic Echocardiogram Patient: Yajaira Solo Study ID: ECHO COMPLETE - Gender: F : 1955 Age: 69 Race: JASIEL Height 167.6cm Study Date: 02/15/2025 Weight: 84kg Access. #: [id number] BP: *Referring Physician:Ninfa Hernandez, Saji Purvis *Ordering Physician:* Ninfa Ch raw cheese worker: Nurse: Indications: Pulmonary embolism. STUDY CONCLUSIONS: SUMMARY: - Very technically difficult study. - Left ventricle: The cavity size was normal. Wall thickness was increased in a pattern of mild LVH. Global systolic function is mildly reduced. The estimated ejection fraction is 45-50%. For Epic reporting: the left ventricular ejection fraction is 45% . Diastolic function assessment consistent with abnormal left ventricular relaxation (grade 1 diastolic dysfunction). - Right ventricle: The cavity size is dilated. Systolic function is not well assessed but appears moderately dysfunctional based on limited views/assesment. TAPSE/RV S' not reliable on this TDS. Echodensity seen within the RV measuring 1.0cm x 1.0cm (see image #112); differential includes prominent moderator band vs thrombus in transit. - Left atrium: The atrium is normal in size. - Pulmonic valve: Not well visualized. Mild regurgitation. - Pulmonary arteries: The peak systolic pressure is 42mm Hg. - Pericardium: There is no pericardial effusion. Cardiac Anatomy: LEFT VENTRICLE: The cavity size was normal. Wall thickness was increased in a pattern of mild LVH. Global systolic function is mildly reduced. The estimated ejection fraction is 45-50%. For Epic reporting: the left ventricular ejection fraction is 45% . D shaped septum consistent with RV pressure and volume overload. Mild global hypokinesis. Diastolic function assessment consistent with abnormal left ventricular relaxation (grade 1 diastolic dysfunction). AORTIC VALVE: Structurally normal valve. Trileaflet. No significant regurgitation. The mean systolic gradient is 5mm Hg. The peak systolic gradient is 9mm Hg. The LVOT to aortic valve VTI ratio is 0.63. The valve area is 2.0cm^2. The ratio of LVOT to aortic valve peak velocity is 0.64. AORTA: Aortic root: The root is normal-sized. MITRAL VALVE: Structurally normal valve. No significant regurgitation. The mean diastolic gradient is 1mm Hg. The peak diastolic gradient is 4mm Hg. LEFT ATRIUM: The atrium is normal in size. RIGHT VENTRICLE: The cavity size is dilated. Systolic function is not well assessed but appears moderately dysfunctional based on limited views/assesment. TAPSE/RV S' not reliable on this TDS. Echodensity seen within the RV measuring 1.0cm x 1.0cm (see image #112); differential includes prominent moderator band vs thrombus in transit. PULMONIC VALVE: Not well visualized. Mild regurgitation. TRICUSPID VALVE: Structurally normal valve. No significant regurgitation. RIGHT ATRIUM: The atrium was normal in size. SYSTEMIC VEINS: Inferior vena cava: The IVC is normal-sized. PERICARDIUM: There is no pericardial effusion. Measurements Left ventricle Value Ref IVS, ED, LAX (H) 1.2 cm 0.6 - 0.9 HUMAIRA, LAX (N) 4.3 cm 3.8 - 5.2 HUMAIRA/bsa, LAX (L) 2.2 cm/m^2 2.3 - 3.1 HUMAIRA, LAX chord (H) 5.3 cm 3.8 - 5.2 ESD, LAX chord (H) 4.3 cm 2.2 - 3.5 HUMAIRA/bsa, LAX chord (N) 2.7 cm/m^2 2.3 - 3.1 ESD/bsa, LAX chord (H) 2.2 cm/m^2 1.3 - 2.1 FS, LAX chord (L) 19 % 27 - 45 IVS, ED (H) 1.1 cm 0.6 - 0.9 PW, ED (H) 1.2 cm 0.6 - 0.9 EDV, 2-p (H) 168 ml 46 - 106 ESV, 2-p (H) 90 ml 14 - 42 EF, 2-p (L) 46 % 54 - 74 SV, 2-p 78 ml --------- SV/bsa, 2-p 40.2 ml/m^2 --------- E', lat santos, TDI (L) 5.3 cm/sec >=10.0 E/e', lat santos, TDI (N) 10 <=13 E', med santos, TDI (L) 4.8 cm/sec >=7.0 E/e', med santos, TDI 11 --------- E', avg, TDI 5.1 cm/sec --------- E/e', avg, TDI (N) 11 <=14 LVOT Value Ref Diam, S 2.0 cm --------- Area 3.1 cm^2 --------- Peak chan, S 0.92 m/sec --------- VTI, S 19.6 cm --------- Right ventricle Value Ref HUMAIRA minor ax, A4C base (H) 4.5 cm 2.5 - 4.1 HUMAIRA minor ax, A4C mid (N) 3.3 cm 1.9 - 3.5 HUMAIRA major ax, A4C (N) 8.1 cm 5.9 - 8.3 TAPSE, MM (N) 2.3 cm >=1.7 Pressure, S 46 mm Hg --------- S' lateral (N) 13.2 cm/sec >=9.5 Left atrium Value Ref AP dim, ES (N) 3.8 cm 2.7 - 3.8 AP dim index, ES (N) 2.0 cm/m^2 1.5 - 2.3 SI dim, A4C 4.7 cm --------- Area ES, A4C (N) 12 cm^2 <=20 Area/bsa ES, A4C 6.29 cm^2/m^2 --------- SI dim, A2C 4.7 cm --------- SI dim, shorter 4.7 cm --------- Vol, ES, 1-p A2C (N) 23 ml 22 - 52 Vol/bsa, ES, 1-p A2C (L) 12 ml/m^2 13 - 40 Vol, ES, 2-p 24 ml --------- Vol/bsa, ES, 2-p (L) 12 ml/m^2 16 - 34 LA/Ao root ratio 1.23 --------- Right atrium Value Ref SI dim, ES, A4C (N) 5.0 cm 3.4 - 5.3 SI dim/bsa, ES, A4C (N) 2.6 cm/m^2 1.9 - 3.1 Area, ES, A4C (N) 16 cm^2 10 - 18 Vol, ES, 1-p A4C 43 ml --------- Vol/bsa, ES, 1-p A4C (N) 22 ml/m^2 9 - 33 Aortic valve Value Ref Peak v, S 1.4 m/sec --------- Mean v, S 1.05 m/sec --------- VTI, S 31.1 cm --------- Mean grad, S 5 mm Hg --------- Peak grad, S 9 mm Hg --------- LVOT/AV, VTI ratio 0.63 --------- ANUJA, VTI 2.0 cm^2 --------- ANUJA/bsa, VTI 1.02 cm^2/m^2 --------- LVOT/AV, Vpeak ratio 0.64 --------- ANUJA, Vmax 1.9 cm^2 --------- ANUJA/bsa, Vmax 0.99 cm^2/m^2 --------- Mitral valve Value Ref Mean v, D 0.54 m/sec --------- Peak E 0.54 m/sec --------- Peak A 0.81 m/sec --------- Decel time 422 ms --------- PHT 124 ms --------- Mean grad, D 1 mm Hg --------- Peak grad, D 4 mm Hg --------- Peak E/A ratio 0.7 --------- A-VTI 27.3 cm --------- MVA, PHT 1.8 cm^2 --------- MVA/bsa, PHT 0.91 cm^2/m^2 --------- Pulmonic valve Value Ref Peak v, S 0.94 m/sec --------- Accel time 49 ms --------- Peak grad, S 4 mm Hg --------- Tricuspid valve Value Ref TR peak v (H) 3.2 m/sec <=2.8 Peak RV-RA grad, S 41 mm Hg --------- Aortic root Value Ref Root diam, 3.1 cm --------- Ascending aorta Value Ref AAo AP diam, S 3.0 cm --------- AAo AP diam/bsa, S 1.5 cm/m^2 --------- Pulmonary artery Value Ref Pressure, S 42 mm Hg --------- Systemic veins Value Ref Estimated RA pressure 5 mm Hg --------- Legend: (L) and (H) ryan values outside specified reference range. (N) more values inside specified reference range. Procedure data: Procedure information: A transthoracic echocardiogram was performed. Scanning was performed from the parasternal, apical, and subcostal acoustic windows. Transthoracic echocardiogram. Complete 2D, complete spectral Doppler, and color Doppler. Birthdate: Patient birthdate: 1955. Age: Patient is 69year(s) old. Sex: gender: female. Height: 167.6cm. 66in. Weight: 84kg. 185.2lb. Body mass index: 29.9kg/m^2. Body surface area: 1.94m^2. Study date: Study date: 02/15/2025. Study time: 12:41 PM. Prepared and Electronically Authenticated Dino Calderon [id number] Procedure Note Dino Calderon MD - 02/15/[address] [address] [email or web address] Transthoracic Echocardiogram Patient: Yajaira Solo Study ID: ECHO COMPLETE - Gender: F : 1955 Age: 69 Race: JASIEL Height 167.6cm Study Date: 02/15/2025 Weight: 84kg Access. #: [id number] BP: *Referring Physician:Ninfa Hernandez, Saji Purvis *Ordering Physician:Ninfa Hernandez raw cheese worker: Nurse: Indications: Pulmonary embolism. STUDY CONCLUSIONS: SUMMARY: - Very technically difficult study. - Left ventricle: The cavity size was normal. Wall thickness was increasedin a pattern of mild LVH. Global systolic function is mildly reduced. The estimated ejection fraction is 45-50%. For Epic reporting: the left ventricular ejection fraction is 45% . Diastolic function assessment consistent with abnormal left ventricular relaxation (grade 1diastolic dysfunction). - Right ventricle: The cavity size is dilated. Systolic function is notwell assessed but appears moderately dysfunctional based on limited views/assesment. TAPSE/RV S' not reliable on this TDS. Echodensityseen within the RV measuring 1.0cm x 1.0cm (see image #112); differential includes prominent moderator band vs thrombus in transit. - Left atrium: The atrium is normal in size. - Pulmonic valve: Not well visualized. Mild regurgitation. - Pulmonary arteries: The peak systolic pressure is 42mm Hg. - Pericardium: There is no pericardial effusion. Cardiac Anatomy: LEFT VENTRICLE: The cavity size was normal. Wall thickness was increasedin a pattern of mild LVH. Global systolic function is mildly reduced. Theestimated ejection fraction is 45-50%. For Epic reporting: the left ventricularejection fraction is 45% . D shaped septum consistent with RV pressure and volume overload. Mild global hypokinesis. Diastolic function assessmentconsistent with abnormal left ventricular relaxation (grade 1 diastolicdysfunction). AORTIC VALVE: Structurally normal valve. Trileaflet. No significant regurgitation. The mean systolic gradient is 5mm Hg. The peak systolic gradient is 9mm Hg. The LVOT to aortic valve VTI ratio is 0.63. The valvearea is 2.0cm^2. The ratio of LVOT to aortic valve peak velocity is 0.64. AORTA: Aortic root: The root is normal-sized. MITRAL VALVE: Structurally normal valve. No significantregurgitation. The mean diastolic gradient is 1mm Hg. The peak diastolic gradient is 4mmHg. LEFT ATRIUM: The atrium is normal in size. RIGHT VENTRICLE: The cavity size is dilated. Systolic function is notwell assessed but appears moderately dysfunctional based on limited views/assesment. TAPSE/RV S' not reliable on this TDS. Echodensity seenwithin the RV measuring 1.0cm x 1.0cm (see image #112); differential includes prominent moderator band vs thrombus in transit. PULMONIC VALVE: Not well visualized. Mild regurgitation. TRICUSPID VALVE: Structurally normal valve. No significantregurgitation. RIGHT ATRIUM: The atrium was normal in size. SYSTEMIC VEINS: Inferior vena cava: The IVC is normal-sized. PERICARDIUM: There is no pericardial effusion. Measurements Left ventricle Value Ref IVS, ED, LAX (H) 1.2 cm 0.6 - 0.9 HUMAIRA, LAX (N) 4.3 cm 3.8 - 5.2 HUMAIRA/bsa, LAX (L) 2.2 cm/m^2 2.3 - 3.1 HUMAIRA, LAX chord (H) 5.3 cm 3.8 - 5.2 ESD, LAX chord (H) 4.3 cm 2.2 - 3.5 HUMAIRA/bsa, LAX chord (N) 2.7 cm/m^2 2.3 - 3.1 ESD/bsa, LAX chord (H) 2.2 cm/m^2 1.3 - 2.1 FS, LAX chord (L) 19 % 27 - 45 IVS, ED (H) 1.1 cm 0.6 - 0.9 PW, ED (H) 1.2 cm 0.6 - 0.9 EDV, 2-p (H) 168 ml 46 - 106 ESV, 2-p (H) 90 ml 14 - 42 EF, 2-p (L) 46 % 54 - 74 SV, 2-p 78 ml --------- SV/bsa, 2-p 40.2 ml/m^2 --------- E', lat santos, TDI (L) 5.3 cm/sec >=10.0 E/e', lat santos, TDI (N) 10 <=13 E', med santos, TDI (L) 4.8 cm/sec >=7.0 E/e', med santos, TDI 11 --------- E', avg, TDI 5.1 cm/sec --------- E/e', avg, TDI (N) 11 <=14 LVOT Value Ref Diam, S 2.0 cm --------- Area 3.1 cm^2 --------- Peak chan, S 0.92 m/sec --------- VTI, S 19.6 cm --------- Right ventricle Value Ref HUMAIRA minor ax, A4C base (H) 4.5 cm 2.5 - 4.1 HUMAIRA minor ax, A4C mid (N) 3.3 cm 1.9 - 3.5 HUMAIRA major ax, A4C (N) 8.1 cm 5.9 - 8.3 TAPSE, MM (N) 2.3 cm >=1.7 Pressure, S 46 mm Hg --------- S' lateral (N) 13.2 cm/sec >=9.5 Left atrium Value Ref AP dim, ES (N) 3.8 cm 2.7 - 3.8 AP dim index, ES (N) 2.0 cm/m^2 1.5 - 2.3 SI dim, A4C 4.7 cm --------- Area ES, A4C (N) 12 cm^2 <=20 Area/bsa ES, A4C 6.29 cm^2/m^2 --------- SI dim, A2C 4.7 cm --------- SI dim, shorter 4.7 cm --------- Vol, ES, 1-p A2C (N) 23 ml 22 - 52 Vol/bsa, ES, 1-p A2C (L) 12 ml/m^2 13 - 40 Vol, ES, 2-p 24 ml --------- Vol/bsa, ES, 2-p (L) 12 ml/m^2 16 - 34 LA/Ao root ratio 1.23 --------- Right atrium Value Ref SI dim, ES, A4C (N) 5.0 cm 3.4 - 5.3 SI dim/bsa, ES, A4C (N) 2.6 cm/m^2 1.9 - 3.1 Area, ES, A4C (N) 16 cm^2 10 - 18 Vol, ES, 1-p A4C 43 ml --------- Vol/bsa, ES, 1-p A4C (N) 22 ml/m^2 9 - 33 Aortic valve Value Ref Peak v, S 1.4 m/sec --------- Mean v, S 1.05 m/sec --------- VTI, S 31.1 cm --------- Mean grad, S 5 mm Hg --------- Peak grad, S 9 mm Hg --------- LVOT/AV, VTI ratio 0.63 --------- ANUJA, VTI 2.0 cm^2 --------- ANUJA/bsa, VTI 1.02 cm^2/m^2 --------- LVOT/AV, Vpeak ratio 0.64 --------- ANUJA, Vmax 1.9 cm^2 --------- ANUJA/bsa, Vmax 0.99 cm^2/m^2 --------- Mitral valve Value Ref Mean v, D 0.54 m/sec --------- Peak E 0.54 m/sec --------- Peak A 0.81 m/sec --------- Decel time 422 ms --------- PHT 124 ms --------- Mean grad, D 1 mm Hg --------- Peak grad, D 4 mm Hg --------- Peak E/A ratio 0.7 --------- A-VTI 27.3 cm --------- MVA, PHT 1.8 cm^2 --------- MVA/bsa, PHT 0.91 cm^2/m^2 --------- Pulmonic valve Value Ref Peak v, S 0.94 m/sec --------- Accel time 49 ms --------- Peak grad, S 4 mm Hg --------- Tricuspid valve Value Ref TR peak v (H) 3.2 m/sec <=2.8 Peak RV-RA grad, S 41 mm Hg --------- Aortic root Value Ref Root diam, 3.1 cm --------- Ascending aorta Value Ref AAo AP diam, S 3.0 cm --------- AAo AP diam/bsa, S 1.5 cm/m^2 --------- Pulmonary artery Value Ref Pressure, S 42 mm Hg --------- Systemic veins Value Ref Estimated RA pressure 5 mm Hg --------- Legend: (L) and (H) ryan values outside specified reference range. (N) more values inside specified reference range. Procedure data: Procedure information: A transthoracic echocardiogram was performed.Scanning was performed from the parasternal, apical, and subcostal acousticwindows. Transthoracic echocardiogram. Complete 2D, complete spectralDoppler, and color Doppler. Birthdate: Patient birthdate: 1955. Age:Patient is 69year(s) old. Sex: gender: female. Height: 167.6cm. 66in. Weight: 84kg. 185.2lb. Body mass index: 29.9kg/m^2. Body surfacearea: 1.94m^2. Study date: Study date: 02/15/2025. Study time: 12:41 PM. Prepared and Electronically Authenticated Dino Calderon [id number] us Ninfa Ch MD ORDERABLES Final Resu lt INTERFACE SYSTEM Refer to clinic/hospital department * PTT (02/15/2025 3:12 AM CDT) PTT 29.8 24.4 - 36.4 seconds 02/15/2025 3:[address] [facility] [employer] [facility] Comment: PTT Therapeutic Range: Heparin Level PTT (seconds) <0.10 units/mL <55.8 0.10 - 0.30 units/mL 55.8 - 74.3 0.30 - 0.70 units/mL* 74.3 - 111.2* 0.70 - 1.00 units/mL 111.2 - 138.9 *corresponds to therapeutic range for unfractionated heparin Blood Venipuncture / Unknown 02/15/2025 3:12 AM CDT 02/15/2025 3:31 AM CDT us Ninfa Ch MD HEMATOLOGY ORDERABLES Marla chang Result [facility] CLIA# [id number] [address] [facility] [place] [address] * CBC WITHOUT DIFFERENTIAL (02/15/2025 3:12 AM CDT) WBC 9.2 4.0 - 9.8 K/uL 02/15/2025 3:48 AM CDT [facility] RBC 4.64 3.90 - 4.90 M/uL 02/15/2025 3:48 AM CDT [facility] HEMOGLOBIN 13.7 11.8 - 14.8 g/dL 02/15/2025 3:48 AM CDT [facility] HEMATOCRIT 42.6 35.5 - 44.0 % 02/15/2025 3:48 AM CDT [facility] MCV 91.8 82.0 - 99.0 fL 02/15/2025 3:48 AM CDT [facility] MCH 29.5 27.2 - 32.6 pg 02/15/2025 3:48 AM CDT [facility] MCHC 32.2 31.5 - 35.5 g/dL 02/15/2025 3:48 AM CDT [facility] PLATELETS 232 140 - 350 K/uL 02/15/2025 3:48 AM CDT [facility] MPV 10.5 9.3 - 12.4 fL 02/15/2025 3:48 AM CDT [facility] RDW 13.2 11.5 - 14.5 % 02/15/2025 3:48 AM CDT [facility] RDW-STDEV 44.8 37.1 - 48.7 fL 02/15/2025 3:48 AM CDT [facility] Blood Venipuncture / Unknown 02/15/2025 3:12 AM CDT 02/15/2025 3:31 AM CDT Ninfa Ch MD HEMATOLOGY ORDERABLES Marla l Result [facility] [employer] [facility] CLIA# [id number] [address] [facility] [place] [id number] * (ABNORMAL) COMPREHENSIVE METABOLIC PANEL (02/15/2025 3:12 AM CDT) SODIUM 141 136 - 145 mmol/L 02/15/2025 4:22 AM [facility] POTASSIUM 3.5 3.5 - 5.0 mmol/L 02/15/2025 4:22 AM [facility] CHLORIDE 105 98 - 107 mmol/L 02/15/2025 4:22 AM [facility] CO2 25 22 - 29 mmol/L 02/15/2025 4:22 AM [facility] CALCIUM 8.8 8.6 - 10.2 mg/dL 02/15/2025 4:22 AM [facility] BUN 10 8 - 23 mg/dL 02/15/2025 4:22 AM [facility] CREATININE 0.89 0.51 - 0.95 mg/dL 02/15/2025 4:22 AM T [facility] Comment:The GFR result is no t clinically significant on patients <18 or >70 years of age. GLUCOSE 111(H) 74 - 99 mg/dL 02/15/2025 4:22 AM [facility] TOTAL PROTEIN 6.2(L) 6.7 - 8.6 g/dL 02/15/2025 4:22 AM [facility] ALBUMIN 3.7 3.5 - 5.2 g/dL 02/15/2025 4:22 AM [facility] BILIRUBIN TOTAL 0.6 0.2 - 1.1 mg/dL 02/15/2025 4:22 AM [facility] ALKALINE PHOSPHATASE 79 35 - 104 U/L 02/15/2025 4:22 AM [facility] AST 18 <33 U/L 02/15/2025 4:22 AM [facility] ALT 16 <34 U/L 02/15/2025 4:22 AM [facility] GFR >60 mL/min/1.7 3 sq meter 02/15/2025 4:22 AM [facility] Comment:eGFR calculated with 2020 CKD-EPI equation. Vegetarian diet, extremely high or low muscle mass, and may affect results. Cystatin C with Glomerular Filtration Rate is a suitable alternative for these patients. ANION GAP 11 8 - 16 mmol/L 02/15/2025 4:22 AM [facility] Blood Venipuncture / Unknown 02/15/2025 3:12 AM CDT 02/15/2025 3:31 AM [facility] Narrative [facility] - 02/15/2025 4:22 AM [facility] Samples containing indocyanine green cause interferences on Total and/or Direct Bilirubin and must not be measured. Ninfa Ch MD CHEMISTRY ORDERABLES Final Result [facility]# [id number] [address] [place] [address] [place] [address] from Last 3 Months Insurance [facility] [id number] RX [employer] RX Member Subscriber Plan / Payer (Ef fective 2021-Present) Name:Yajaira Solo Relation to Subscriber:Self Name:Yajaira Solo Payer ID:Not on file Group ID:[id number] Type:RX Medicare Part D Address: [place] [employer] Commercial Advance Directives For more information, please contact: [phone] * Full Code (Latest Code Status on File) Date Activated Date Inactivated Comments 02/15/2025 2:46 AM 02/16/2025 3:45 PM Care Teams Director Broadcast Relationship Specialty Start Date End Date Kendall Magana MD [address] [place] [address] PCP - General Internal Medicine 02/15/25
--- OUTSIDE RECORDS SUMMARY | 2025-02-27 07:15 | XMS_ITS | Referral Summary ---
Author Organization [facility] Address [address] [place] [address] Care Team Providers Care Border Patrol Agent Name Role Phone Brenda Bowie Primary Care Pr ovider Gutierrez Melendez MD Unavailable [phone] Encounters Date Type Department Care Team Description 02/23/2025 7:06 AM CDT - 02/23/2025 11:59 PM CDT Hospital Encounter [facility] [address] [place] [address] Encounter for screening mammogram for malignant neoplasm of breast Discharge Disposition: Discharge to home or self care from Last 3 Months Allergies No known active allergies Medications valsartan (DIOVAN) 40 mg tablet valsartan 40 mg tablet TAKE 1 TABLET BY MOUTH ONCE DAILY 07/30/20 20 Active omeprazole (PriLOSEC) 40 mg capsule omeprazole 40 mg capsule,delayed release TAKE 1 CAPSULE BY MOUTH ONCE DAILY 10/09/20 16 Active magnesium oxide (MAG-OX) 400 mg (241.3 mg elemental magnesium) tablet Take by mouth daily 11/05/19 21 Active lovastatin (MEVACOR) 20 mg tablet lovastatin 20 mg tablet TAKE 1 TABLET BY MOUTH ONCE DAILY 10/09/20 16 Active levETIRAcetam (KEPPRA) 500 mg tablet levetiracetam 500 mg tablet TAKE 1 TABLET BY MOUTH TWICE DAILY 04/20/20 18 Active hydroCHLOROth iazide (HYDRODIURIL) 12.5 mg tablet hydrochlorothiazide 12.5 mg tablet 02/07/20 19 Active citalopram (CeleXA) 20 mg tablet citalopram 20 mg tablet TAKE 1 TABLET BY MOUTH ONCE DAILY Active carvediloL (COREG) 25 mg tablet carvedilol 25 mg tablet 09/28/20 19 Active budesonide-fo rmoteroL (SYMBICORT) 160-4.5 mcg/actuation inhaler Symbicort 160 mcg-4.5 mcg/actuation HFA aerosol inhaler INHALE 2 PUFFS BY MOUTH TWICE DAILY 02/06/20 21 Active albuterol HFA (PROVENTIL HFA,VENTOLIN HFA,PROAIR HFA) 90 mcg/actuation inhaler albuterol sulfate HFA 90 mcg/actuation aerosol inhaler Inhale 2 puffs every 4-6 hours by inhalation route as needed. 09/07/20 16 Active metFORMIN (GLUCOPHAGE) 500 mg tablet Take 1 tablet (500 mg total) by mouth daily with breakfast 02/24/20 21 Active Active Problems Problem Noted Date Diagnosed Date Encounter for screening colonoscopy 10/05/2024 History of colonic polyps 10/05/2024 Ventricular tachycardia, sustained 01/17/2021 Overview (01/17/2021): Added automatically from request for surgery [id number] Sustained ventricular tachycardia 11/18/2020 Overview (11/18/2020): Added automatically from request for surgery [id number] Pain in wrist 12/21/2016 Closed fracture of distal end of radius 09/24/20 16 Social History Tobacco Use Types Packs/Day Years Used Date Smoking Tobacco: Every Day Smokeless Tobacco: Never AUDIT-C Answer Date Recorded Q1: How often do you have a drink containing alc ohol? Monthly or less 02/20/2021 Q2: How many drinks containi ng alcohol do you have on a typical day when you are drinking? 1 or 2 02/20/2021 Q3: How often do you have si x or more drinks on one occasion? 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 Gender Identity Not on file Sexual Orientation Not on file Last Filed Vital Signs Vital Sign Reading Time Taken Comments Blood Pressure 122/59 02/20/2021 3:30 PM CDT Pulse 70 02/20/2021 3:30 PM CDT Temperature 36.7 C (98 F) 02/20/2021 12:45 PM CDT Respiratory Rate 19 02/20/2021 3:30 PM CDT Oxygen Saturation 93% 02/20/2021 3:30 PM CDT Inhaled Oxygen Concentration - - Weight 80.7 kg (178 lb) 02/23/2025 7:16 AM CDT Height 165.1 cm (5' 5 ) 02/23/2025 7:16 AM CDT Body Mass Index 29.62 02/23/2025 7:16 AM CDT Plan of Treatment Upcoming Encounters Date Type Department Care Team (Late st Contact Info) Description 04/16/2025 10:00 AM CDT Hospital Encounter [address] [address] Tye Muir, [address] [facility] [address] [place] [address] 04/16/2025 10:00 AM CDT - 04/16/2025 10:30 AM CDT Surgery [address] [address] Tye Muir, [address] [facility] [address] [place] [address] COLONOSCOPY Scheduled Procedures Name Priority Associated Diagnoses Date/Ti me COLONOSCOPY Encounter for screening colonoscopy History of colonic polyps 04/16/2025 10:00 AM CDT Procedures Procedure Name Priority Date/Time Associated Diagnosis Comments SCREENING MAMMOGRAM BILATERAL W CARLOZ W IMPLANTS Schedule Routine, Read Routine (OP Routine) 02/23/2025 7:33 AM CDT Encounter for screening mammogram for malignant neoplasm of breast from Last 3 Months Results * Screening Mammogram Bilateral W Carloz W Implants (02/23/2025 7:33 AM CDT) Anatomical Region Laterality Modality Breast Bilateral Mammography Impressions 02/23/2025 10:59 AM CDT Bilateral No evidence of malignancy in either breast. OVERALL BI-RADS FINAL ASSESSMENT: 2 - Benign RECOMMENDATION: Recommend bilateral annual screening mammography. Narrative 02/23/2025 10:59 AM CDT EXAMINATION: Screening Mammogram Bilateral W Carloz W Implants: 02/23/2025 COMPARISON: Relevant prior studies available at the time of interpretation were reviewed. TECHNIQUE: Mammography was performed with 2D and digital breast tomosynthesis (DBT) images. CAD was utilized. BREAST PARENCHYMAL COMPOSITION: The breasts are almost entirely fatty. FINDINGS: There are bilateral subpectoral implants. Bilateral There is no suspicious mass, calcification, or architectural distortion in either breast. Brenda PEREZ IMG MAMMO PROCED URES Final Result from Last 3 Months Insurance [employer] CHOICE MEDICARE PPO [facility] MDCR HMO REF [facility] MEDIC[facility] Address: [address] [address] [place] [address] [facility] MEDICARE ADVANTAGE [facility] MEDICARE Address: [facility] [address] [place] [address] Care Teams Border Patrol Agent Relationship Specialty Start Date End Date Brenda Bowie PA PCP - General 06/12/20 Gutierrez Melendez MD [address] [place] [address] Consulting Physician Cardiology 02/20/21
--- OUTSIDE RECORDS SUMMARY | 2025-02-27 07:15 | XMS_ITS | Clinical Summary ---
Author Organization [facility] Address [address] [place] [address] Care Team Providers Care Home Care Assistant Name Role Phone Brenda Bowie Primary Care Pr ovider Gutierrez Melendez MD Unavailable [phone] Allergies No known active allergies Medications valsartan [...] (01/17/2021): Added automatically from request for surgery [id number] Sustained ventricular tachycardia 11/18/2020 Overview (11/18/2020): Added automatically from request for surgery [id number] Pain in wrist 12/21/2016 Closed fracture of distal end of radius 09/24/20 16 Encounters Date Type Department Care Team Description 02/23/2025 7:06 AM CDT - 02/23/2025 11:59 PM CDT Hospital Encounter [facility] [address] [place], [place] [id number] Encounter for screening mammogram for malignant neoplasm of breast Discharge Disposition: Discharge to home or self care from Last 3 Months Surgical History Surgery Date Site/Laterality Comments ABLATION AUGMENTATION MAMMAPLASTY 10/25/1979 - 10/24/1980 Bilateral MASTECTOMY 10/25/1979 - 10/24/1980 Bilateral pt claims she had mastectomy but still gets mammograms? 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 Gender Identity Not on file Sexual Orientation Not on file Obstetrics History Para Term AB IAB SAB Ectopic Multiple Livin g Live Births 0 0 0 0 0 0 0 0 0 0 0 Last Filed Vital Signs Vital Sign Reading [...] Description 04/16/2025 10:00 AM CDT Hospital Encounter [address] [address] Tye Muir DO [address] [facility] [place] [address] 04/16/2025 10:00 AM CDT - 04/16/2025 10:30 AM CDT Surgery [address] [address] Tye Muir DO [address] [facility] [place] [address] COLONOSCOPY Scheduled Procedures Name Priority Associated Diagnoses Date/Ti me COLONOSCOPY Encounter for screening colonoscopy History of colonic polyps 04/16/2025 10:00 AM CDT Health Maintenance Due Date Last Done Comments Colon Cancer Screening-Colonoscopy 1955 Depression Screening 1955 Hepatitis C Screening 1955 Osteoporosis Screening-Bone Density Scan 1955 Hepatitis B Screening 1972 Zoster Vaccine (1 of 2) 2004 Well Visit 65+ 2019 Fall Risk Assessment 02/20/2022 02/20/2021 Influenza Vaccine (Season Ended) 2025 08/13/2015, 08/03/2015, 10/26/2012 Pneumococcal vaccine 65+ (3 of 3 - PCV20 or PCV21) 08/05/2025 08/05/2020, 10/26/2012, 10/25/2011 DTaP/Tdap/Td Vaccine (2 - Td or Tdap) 09/04/202508/2015 Breast Cancer Screening-Mammogram 02/23/2026 025 Procedures Procedure Name Priority Date/Time Associated Diagnosis [...] calcification, or architectural distortion in either breast. us Brenda PEREZ IMG MAMMO PROCED URES Final Result from Last 3 Months Insurance [employer] CHOICE MEDICARE PPO Member Subscriber Plan / Payer (Ef fective 2020-Present) Name:Yajaira Solo Relation to Subscriber:Self Name:Yajaira Solo Payer ID:[id number] (NAIC) Type:MEDICARE RISK OTHER Address: [address] MDCR HMO REF [place] [id number] UHC MEDICARE ADVANTAGE Care Teams Home Care Assistant Relationship Specialty Start Date End Date AzebOlvinANA Quintana PCP - General 06/12/20 Gutierrez Melendez MD [address] [place] [address] Consulting Physician Cardiology 02/20/21
--- NOTE | 2025-02-27 07:38 | ECHO_ITS ---
Patient Info Name: Yajaira Solo Age: 69 years : 1955 Gender: Female Ht: 65 in Wt: 178 lbs BSA: 1.95 m2 HR: 59 bpm BP: 131 / 87 mmHg Technical Quality: Fair Exam Date: 02/27/2025 8:12 AM Exam Location: Echo Lab Patient Status: Outpatient Admit Date: 02/27/2025 Staff Ordering Physician: Elisha Tomlinson MD Extension Agent: Rupal Meraz RDCS Attending Provider: Elisha Tomlinson MD Referring Physician: Davi LANDON; Exam Type: CA echo dop bubble study w con Study Info Indications I35.0 - Nonrheumatic aortic (valve) stenosis G45.9 - Transient cerebral ischemic attack, unspecified Complete two-dimentional, color flow and Doppler transthoracic echocardiogram is performed with agitated saline and with contrast to opacify the left ventricle and to improve the delineation of the left ventricle endocardial borders. Contrast/Agitated Saline Contrast/Ag. Saline: Definity Amount: 3.00 ml IV Access Condition: patent with no signs of infiltration New IV Access: Left Site Condition: IV removed Contrast/Ag. Saline: Agitated Saline Amount: 12.00 ml IV Access Condition: patent with no signs of infiltration New IV Access: Left Site Condition: IV removed Summary 1. Definity contrast administered improved wall motion interpretation. 2. Left ventricular systolic function is severely globally reduced, estimated at 25-30%. 3. Left ventricular chamber dimension is moderately enlarged. 4. The left ventricular diastolic function is grade I diastolic dysfunction. 5. E/e' 9 is minimally elevated. 6. Right ventricular systolic function is mildly reduced. 7. Right ventricular chamber dimension is mildly enlarged. 8. Left atrial chamber dimension is mildly enlarged. 9. There is mild aortic valve sclerosis. 10. There is mild mitral valve regurgitation. 11. There is mild tricuspid valve regurgitation. 12. No pulmonary hypertension, estimated pulmonary arterial systolic pressure is 17 mmHg. 13. There is trace pulmonic regurgitation. 14. There is trivial pericardial effusion. Left Ventricle E/e' 9 is minimally elevated. Definity contrast administered improved wall motion interpretation. Left ventricular systolic function is severely globally reduced, estimated at 25-30%. Left ventricular chamber dimension is moderately enlarged. The left ventricular diastolic function is grade I diastolic dysfunction. Right Ventricle Right ventricular systolic function is mildly reduced. Right ventricular chamber dimension is mildly enlarged. Left Atria Left atrial chamber dimension is mildly enlarged. Right Atria Right atrial chamber dimension is normal. Atrial Septum Agitated saline injection with and without valsalva maneuver opacified right side cardiac chambers without shunt to left side cardiac chambers. Intact interatrial septum visualized by 2D and agitated saline imaging. Aortic Valve The aortic valve is trileaflet. There is mild aortic valve sclerosis. There is no aortic valve stenosis. There is no aortic valve regurgitation. Pulmonic Valve There is trace pulmonic regurgitation. Mitral Valve There is no mitral valve stenosis. There is mild mitral valve regurgitation. Tricuspid Valve There is mild tricuspid valve regurgitation. No pulmonary hypertension, estimated pulmonary arterial systolic pressure is 17 mmHg. Pericardium/Pleural There is trivial pericardial effusion. Inferior Vena Cava Normal inferior vena cava with >50% collapse upon inspiration consistent with normal right atrial pressure, 5 mmHg. Aorta The aortic root size at the sinus of Valsalva is normal. Left Ventricular Outflow Tract Name Value Normal LVOT 2D LVOT Diameter 2.0 cm LVOT Doppler LVOT Peak Gradient 3 mmHg LVOT Mean Gradient 2 mmHg LVOT VTI 19 cm LVOT VTI/AV VTI Ratio 0.8 LVOT Stroke Volume 60 ml LVOT CO 11.9 l/min LVOT CI 6.1 l/min/m2 Pulmonic Valve Name Value Normal PV Doppler PV Peak Gradient 3 mmHg Mitral Valve Name Value Normal MV Doppler MV Decel Mcmullen 172 cm/s2 MV PHT 68 ms MV Area (PHT) 3.2 cm2 4.0-5.0 MV Diastolic Function MV E Peak Velocity 40 cm/s MV A Peak Velocity 99 cm/s MV E/A 0.4 MV Decel Time 233 ms MV Annular TDI MV E/e' (Septal) 9.9 <=8.0 MV E/e' (Lateral) 9.9 <=8.0 MV E/e' (Average) 9.9 Tricuspid Valve Name Value Normal TV Regurgitation Doppler TR Peak Velocity 176 cm/s TR Peak Gradient 12 mmHg Estimated PAP/RSVP RA Pressure 5 mmHg <=5 PA Systolic Pressure 17 mmHg <36 RV Systolic Pressure 17 mmHg <36 Aorta Name Value Normal Ascending Aorta Ao Root Diameter (MM) 3.0 cm Ao Root Diam Index (MM) 1.5 cm/m2 Aortic Valve Name Value Normal AV Doppler AV Peak Velocity 127 cm/s AV Peak Gradient 6 mmHg AV Mean Gradient 4 mmHg AV VTI 25 cm AV Area (Cont Eq VTI) 2.4 cm2 >=3.0 AV Area (Cont Eq Ziyad) 2.0 cm2 AV Regurgitation 2D LVOT Area 3.1 cm2 Ventricles Name Value Normal LV Dimensions 2D/MM IVS Diastolic Thickness (2D) 1.0 cm 0.6-1.0 LVID Diastole (2D) 4.8 cm 3.8-5.2 LVIW Diastolic Thickness (2D) 0.9 cm 0.6-0.9 LVID Systole (2D) 4.4 cm 2.2-3.5 LVOT Diameter 2.0 cm LV Mass (2D Cubed) 167.35 g 67.00-162.00 LV Mass Index (2D Cubed) 86 g/m2 43-95 Relative Wall Thickness (2D) 0.39 LV Fractional Shortening/Ejection Fraction 2D/MM LV Fractional Shortening (2D) 10 % 27-45 LV EF (2D Teicholz) 21 % 54-74 LV Diastolic Volume (4C MOD) 116 ml LV EF (4C MOD) 26 % LV Diastolic Volume (2C MOD) 112 ml LV EF (2C MOD) 19 % LV Diastolic Volume (BP MOD) 115 ml 46-106 LV Diastolic Volume Index (BP MOD) 59 ml/m2 29-61 LV Systolic Volume (BP MOD) 89 ml 14-42 LV Systolic Volume Index (BP MOD) 46 ml/m2 8-24 LV EF (BP MOD) 22 % 54-74 LV Diastolic Length (4C) 7.9 cm LV Systolic Length (4C) 7.0 cm LV Stroke Volume (4C MOD) 30 ml RV Dimensions 2D/MM RVID Diastole (2D) 4.4 cm 2.5-3.5 Atria Name Value Normal LA Dimensions LA Dimension (MM) 4.2 cm 2.7-3.8 LA Volume (4C A-L) 45 ml LA Volume (BP A-L) 42 ml RA Dimensions RA Area (4C) 15.0 cm2 <=18.0 Report Signatures
[2025-02-27] MEDS: PERFLUTREN LIPID MICROSPHERES 1.5 ML VIAL DILUTED TO 10 ML TOTAL VOLUME IV PUSH (08:45)
--- NOTE | 2025-02-27 09:02 | IVDEFINITY ---
Prior to administration of IV Definity the patient was educated on the risks and benefits of the imaging enhancing agent including potential adverse side effects. The patient verbalized understanding. Allergies were verified. No exclusion criteria were identified and at least one of the following inclusion criteria were met: 1) physician request, 2) patient technically difficult to image (per the [place] [employer] Echocardi[employer] guidelines of two or more segments not discernable within the apical view), or 3) questionable left ventricular function. ?
== END 2025-02-27 07:11 | disposition home or self-care (01) ==
PROVIDERS: PCP Physician Assistant; Visit Provider Psychiatry & Neurology Neurology
DX: G45.9 Transient cerebral ischemic attack, unspecified (principal); R51.9 Headache, unspecified; G89.29 Other chronic pain; I49.9 Cardiac arrhythmia, unspecified; G40.909 Epilepsy, unspecified, not intractable, without status epilepticus; I35.0 Nonrheumatic aortic (valve) stenosis
CPT/HCPCS: 93242; 96375; C8929; Q9957

== ENCOUNTER 2025-04-02 13:16 | Outpatient (CLI) | payer MEDICARE, SELFPAY ==
--- NOTE | ~2025-04-02 | US_ITS ---
EXAMINATION: US venous doppler [facility] DATE: 04/02/2025 13:49 INDICATION: Recent deep venous thrombosis. Currently anticoagulated. TECHNIQUE: Grayscale ultrasound images without and with compression and Doppler ultrasound images of the left lower extremity veins were obtained. COMPARISON: None. FINDINGS: The visualized portions of left common femoral vein, profunda (deep) femoral vein and greater sapheno us vein outflow are patent. The previously thrombosed left femoral vein is not patent and compressibl e throughout. There is persistent nonocclusive deep venous thrombosis in the popliteal vein, gastrocn emius vein, one of the paired left posterior tibial veins and compared peroneal veins at the calf. Th e second previously thrombosed left posterior tibial vein is now patent. IMPRESSION: 1. 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 Reviewed, dictated and finalized at location A. IMPRESSION: 1. 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
--- OUTSIDE RECORDS SUMMARY | 2025-04-02 14:33 | XMS_ITS | Data Portability ---
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 Hopefully that will [...] more than half the time spent in jbrb-jk-[id number] care. Not available 07/30/2023 09:36:56 08/27/2023 08/27/2023 [...] more than half the time spent in zzrq-sz-[id number] care. Not available 09/06/2023 15:41:25 01/03/2024 01/03/2024 [...] 023 [email or web address] Not available 3 17:12:09 Referral product marketing specialist referral 2022 023 [email or web address] Niki Rivera MD, [address] [facility] , [address], [place], [address], 4 08:58:22 gynecologis t referral - no referral required 2022 023 [email or web address] 4 Arturo Handy MD, [address], [place], [address], 3 14:27:33 Procedures colonoscopy procedure (PROC) - no referral required 2022 023 [email or web address] Mark Irizarry MD, [address], [address], [place], [address], 4 10:21:15 Surgeries None recorded. Imaging XR, foot 2023 024 [facility] [place], [address], [place], [address], 4 18:27:48 XR, foot 2022 023 [email or web address] [facility] [place], [address], [place], [address], 3 16:04:53 XR, foot 2022 023 [facility] [place], [address], [place], [address], 3 10:07:11 MAMMO, screening, digital, bilateral 2022 023 [email or web address] Not available 4 10:21:20 LDCT, chest, for lung cancer screening - no auth required 2022 023 DUC Not available 3 10:32:55 Medication Orders nystatin 100,000 unit/gram topical cream 2022 023 [facility] [address] [place], [address], 3 11:01:24 triamcinolo ne acetonide 0.1 % topical cream 2022 023 [facility] [address] [place], [address], 3 11:01:27 doxycycline hyclate 100 mg tablet [address] [facility] [address] [facility] [address] [place], [address], 3 08:55:18 prednisone 20 mg tablet [address] [facility] [address] [facility] [address] [place], [address], 3 08:55:27 ergocalcife rol (vitamin D2) 1,250 mcg (50,000 unit) capsule 2022 023 [facility] [address] [place], [address], 3 11:01:27 Patient TargetsNo targets recorded. Patient Instructions Encounter Date Encounter Id Patient Instructions Last Modified By Organization Details Last Modified Time 07/19/2023 [id number] dementia rating scale-2* [email or web address] Not available 07/19/2023 11:11:55 multi-dimensiona health assessment questionnaire* [email or web address] Not available 07/19/2023 11:12:00 care plan* [email or web address] Not available 11:11:51 advance directiv es: care instructions Not available 07/19/2023 11:01:17 advance care planning: care instructions Not available 07/19/2023 11:01:17 [place] Advance Directives Not available 07/19/2023 11:01:17 Personalized a lt Plan and Screening Recommendations Advance Directives - Do you have one? Yes Advance Directives - Do we have your advance directive on file in your health record? No, please bring in a copy at your earliest convenience Primary Prevention/Interven tion (prevents or decreases the chance of common diseases from occurring) Smoking Risk: Smoker Continue to consider stopping smoking and call if we can assist you Alcohol Misuse Screening: Negative Weight: Overweight continue your current weight loss efforts Physical activity: Need more exercise/physical activity minimum of 10-20 minutes of activity that causes mild breathlessness/day Nutrition: Average Refer to attached handout Heart-Healthy Diet: After Your Visit Fall Risk (screened today): Intermediate Refer to attached handout Preventing Falls: After your Visit Vaccines Pneumococcal: No further needed Influenza: Your next one in the fall of this year Chronic Disease Risks Stroke: High Risk Active diagnosis, Continue current treatment plan Heart Attack: High Risk Active diagnosis, Continue current treatment plan Clogging of the Arteries: High risk Active diagnosis, Continue current treatment plan Diabetes: High Risk Active diagnosis, Continue current treatment plan Secondary Prevention/Interven tion (detects treatable diseases before they may cause symptoms, disability, or ) Breast Cancer Screening with mammogram: Ordered Cervical/Uterine/Ov maged Cancer Screening: Referral to associate account manager Osteoporosis Screening: Your next DEXA in: Ordered Recomme nded today Recommended today, but you have declined No screening necessary Your next DEXA in: 2024 Date Screening Last Performed: Colon Cancer Screening: Colonoscopy In: Ordered Recomme nded Recommended today, but you have declined No screening necessary In: january 2022 Date Screening Last Performed: Eye Disease Screening: Recommended today Dementia Risk: Low Depression Screening: Positive Active diagnosis, Continue current treatment plan Not available 07/20/2023 14:20:00 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 Referring Physician: Brenda Bowie, Internal Medicine, Encounter Date: 09/02/2023 Results Created Date Observation Date Name Description Value Unit Range Abnormal Flag Note LastModifiedBy Organization Detail LastModifiedTime 06/23/20 23 XR, knee No observ ation record ed. [email or web address] [facility] [place] [address], [place], [address], 06/23/2023 09:02:56 07/02/20 XR, foot No observ ation record ed. [facility] [place] [address], [place], [address], 07/05/2023 14:33:19 07/30/20 XR, foot No observ ation record ed. [facility] [place] [address], [place], [address], 07/30/2023 09:38:31 08/06/2008/06/2023 LDCT, chest , for lung cance r scree regan No observ ation record ed. [address], [place], [address], 09/02/2023 11:51:49 08/06/2008/06/2023 MAMMO , maranda felixg, digit al, bilat eral No observ ation record ed. Not Available 2022 11:51:53 08/24/2008/24/2023 US, liver No observ ation record ed. [facility] [address] [facility], [place], [address], 09/02/2023 15:46:10 08/27/20 XR, foot No observ ation record ed. [facility] [place] [address], [place], [address], 09/06/2023 15:42:20 01/03/20 24 XR, foot No observ ation record ed. [facility] [place] [address], [place], [address], 01/03/2024 16:49:52 Result Notes None recorded. 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 226874279 Active 2022 Not Available [facility] 3 16:25:57 Pruritic rash 49234872 Active 2022 Not Available [facility] 3 16:25:58 Pain in left foot 88352760740 9107 Active 2022 Not Available [facility] 3 16:25:57 Vitamin D deficienc y 89934627 Active 2022 Not Available [facility] 3 16:25:57 Osteoporo sis 59139510 Active 2022 Not Available [facility] 3 16:25:58 Closed fracture of metatarsa l bone 76328889 Active 2022 Not Available [facility] 3 16:25:57 Closed fracture of metatarsa l bone 55494182 Active 2022 Jen Rider CMA null, [employer] [facility] [employer] [facility] 3 11:57:41 Osteoarth ritis of right knee joint 43712181897 9100 Active 2022 ZEINAB Garcia null, [employer] [facility] 3 08:32:21 Smoker 64118634 Active 2022 ANA Wilson [address] [facility], [facility] [address], [place], [address] , [employer] [facility] [employer] [facility] 3 10:56:02 Postmenop ausal bleeding 52480237 Active 2022 ANA Wilson [address] [facility], [address], [place], [address] , [employer] [facility] [employer] [facility] 3 10:58:21 Acute dermatiti s 18897244 Active 2022 ANA Wilson [address], [address], [place], [address] , [place] [facility] 3 10:59:16 Liver enzymes level above reference range 670306894 Active 2022 ANA Wilson [address], [address], [place], [address] , [place] [facility] 3 13:37:43 Ground glass opacity Active 2022 ANA Wilson [address], [address], [place], [address] , [place] [facility] 3 11:53:16 Steatotic liver disease 913567811 Active 2022 ANA Wilson [address], [address], [place], [address] , [place] [facility] [employer] [facility] 3 11:55:36 Generaliz ed abdominal pain 472835464 Active 2021 Not Available [facility] 3 16:25:57 Disorder of shoulder 476710644 Active Not Available [facility] 3 16:25:57 Benign essential hypertens ion 7215643 Active 2021 Not Available [facility] 3 16:25:57 Fracture of bone 461322015 Active Not Available [facility] 3 16:25:57 Disorder of trunk 030397011 Active Not Available [facility] 3 16:25:57 Seizure disorder 163830511 Active 2021 Not Available [facility] 3 16:25:57 Hyperchol esterolem ia 46901108 Active 2016 Not Available [facility] 3 16:25:57 Chronic obstructi ve pulmonary disease 38470825 Active 2021 Not Available [facility] 3 16:25:57 Pain of right shoulder joint 29266782909 942056 Active 2021 Not Available [facility] 3 16:25:57 Pain of joint of wrist 563392749 Active Not Available [facility] 3 16:25:57 Partial thickness rotator cuff tear 400067414 Active Not Available [facility] 3 16:25:57 Osteoarth ritis of joint of hand 66830812 Active Not Available [facility] 3 16:25:57 Gastroeso phageal reflux disease 852034005 Active 2019 Not Available [facility] 3 16:25:57 Osteoarth ritis of hip 528156528 Active Not Available [facility] 3 16:25:57 Osteoarth ritis of knee 382538040 Active Not Available [facility] 3 16:25:57 Shoulder joint pain 583962674 Active Not Available [facility] 3 16:25:57 Syncope 283139845 Active 2021 Not Available [facility] 3 16:25:57 Family history of malignant neoplasm 909093388 Active 2016 Not Available [facility] 3 16:25:57 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 89915349 Active Not Available [facility] 3 16:25:57 Tear of medial meniscus of knee 379558286 Active 2021 Not Available [facility] 3 16:25:57 Pain in pelvis 27801593 Active 2021 Not Available [facility] 3 16:25:57 Enthesopa thy of hip region 87563362 Active Not Available [facility] 3 16:25:57 Pain of left hip joint 32217589925 9100 Active 2021 Not Available [facility] 3 16:25:57 Depressiv e disorder 52897596 Active 2021 Not Available [facility] 3 16:25:57 Hypertens edu disorder 67331090 Active 2016 Not Available [facility] 3 16:25:57 Osteoarth ritis 256546205 Active Not Available [facility] 3 16:25:57 Periphera l vascular disease 165983763 Active 2021 Not Available [facility] 3 16:25:58 Hypothyro idism 10327962 Active 2021 Not Available [facility] 3 16:25:58 Hypokalem ia 32507373 Active 2021 Not Available [facility] 3 16:25:58 Tubular adenomato us polyp of colon 109357784 Active 2021 colonosco py done 12/17/21- she had a >1 cm tubular adenoma at the distal ascending colon that was referred to [facility] Not Available [facility] 3 16:25:58 Pain of right knee joint 37064011506 4100 Active 2021 Not Available [facility] 3 16:25:58 Pain of hip region 97475191 Active Not Available [facility] 3 16:25:58 Candidias is of skin 72355459 Active 2021 Not Available [facility] 3 16:25:58 Hyperlipi demia 52985696 Active 2021 Not Available [facility] 3 16:25:58 Candidias is of mouth 42080938 Active 2021 Not Available [facility] 3 16:25:58 Impaired glucose tolerance 7030096 Active 2021 Not Available [facility] 3 16:25:58 Notes:Some problems listed i n Document: #[id number] could not be added to this patient's chart. Please review this document and add these problems to the patient's chart manually as needed. Problem Notes None recorded. Procedures Surgical History Date Name Laterality Status Provider Name and Address Organization Details Recorded Time 07/19/20 23 Medicare Wellness CPT Code, subsequent completed RADHA Jones [employer] 07/19/2023 10:27:11 04/09/20 Most Recent Bone Density completed ZEINAB Bhardwaj [employer] [facility] 07/16/2023 12:11:34 08/14/20 Date of Last Mammogram completed ZEINAB Bhardwaj [place] [facility] 07/16/2023 12:11:41 02/07/20 Date of Last Colonoscopy completed Not Available [facility] 12/23/2022 04:42:07 10/25/19 15 Total hip arthroplasty completed Not Available [facility] 12/23/2022 04:42:13 10/25/19 13 Total hip arthroplasty completed Not Available [facility] 12/23/2022 04:42:13 Ablation completed Not Available [facility] 04:42:13 Imaging Results None recorded. Procedure Notes None recorded. Medical Equipment None [...] suspension for injection in office 07/16 completed [facility]: 0003- 0494- 20 Not Available Not Available [...] administe red by the provider 02/26 completed [facility]: 0409- [phone]- 17 Not Available Not Available [...] %) injection solution in office 09/01 completed [facility] [phone] -[phone]- [phone] Not Available Not Available Not [...] Not Available Not Available Not Available Afluria 9965-0047 (PF) 45 mcg (15 mcg x 3)/0.5 mL IM syringe 11/13 completed Not Available Not Available Not Available Vitals Date Recorded Body height Provider Name an d Address Organization Details Last Updated DateTime 01/03/2024 160.02 cm ZEINAB Garcia [place] [facility] [employer] 01/03/2024 14:20:57 Date Recorded Body height Body mass index (BMI) Body weight Body temperature Heart rate Oxygen saturation Oxygen saturation in Arterial blood by Pulse oximetry Systolic blood pressure Diastolic blood pressure Provider Name and Address Organization Details Last Updated DateTime 3 160.02 cm 31.9 kg/m2 24718.6 3 g 98.1 [degF] 83 /min 97 % 97 % 132 mm[Hg] 80 mm[Hg] April Kaplan RN [facility] 3 10:33:49 Date Recorded Body height Provider Name an d Address Organization Details Last Updated DateTime 07/30/2023 160.02 cm Gayla Leal [facility] 07/30/2023 08:51:36 Date Recorded Body height Provider Name an d Address Organization Details Last Updated DateTime 08/27/2023 160.02 cm Gayla Leal [facility] 08/27/2023 08:55:04 Date Recorded Body height Body temperature Body mass index (BMI) Body weight Heart rate Respiratory rate Oxygen saturation Oxygen saturation in Arterial blood by Pulse oximetry Systolic blood pressure Diastolic blood pressure Provider Name and Address Organization Details Last Updated DateTime 3 160.02 cm 97.2 [degF] 33 kg/m2 48151.9 8 g 64 /min 16 /min 93 % 93 % 130 mm[Hg] 80 mm[Hg] Lenore Santo [facility] 3 11:28:59 Social History Question Answer Notes LastModified by Organizat ion Details LastModified Time Tobacco Smoking Status Current Every Day Smoker Not Available [facility] 12/23/2022 04:06:30 Do You Have An Advance Directive? Yes [employer]. [id number] Information not available 12/23/2022 Are You Blind Or Do You Have Difficulty Seeing? Yes MIGRATION. 22138 Information not available 12/23/2022 What Is Your Level Of Caffeine Consumption? Occasional MIGRATION. 51626 Information not available 12/23/2022 How Much Tobacco Do You Chew? None MIGRATION. 52204 Information not available 12/23/2022 In The 14 Days Before Symptom Onset, Have You Had Close Contact With A Laboratory-confir med COVID-19 While That Case Was Ill? No MIGRATION. 27294 Information not available 12/23/2022 In The 14 Days Before Symptom Onset, Have You Had Close Contact With A Person Who Is Under Investigation For COVID-19 While That Person Was Ill? No MIGRATION.50783 14308 Information not available 12/23/2022 Are You Deaf Or Do You Have Serious Difficulty Hearing? Yes MIGRATION.42918 22070 Information not available 12/23/2022 What Type Of Diet Are You Following? REGULAR MIGRATION.75115 09901 Information not available 12/23/2022 Which Illicit Or Recreational Drugs Have You Used? None MIGRATION.04400 15199 Information not available 12/23/2022 Have There Been Any Changes To Your Family Or Social Situation? No MIGRATION.99575 54343 Information not available 12/23/2022 Are There Any Guns Present In Your Home? No MIGRATION.97811 35648 Information not available 12/23/2022 Do You Use Insect Repellent Routinely? No MIGRATION.38275 87830 Information not available 12/23/2022 Presence Of Domestic Violence No [email or web address] Information no t available 07/19/2023 Are You Able To Care For Yourself? Yes [email or web address] Information not available 07/19/2023 Are You Blind Or Do Yo Have Difficulty Seeing? Yes Reading Glasses [id number] Information not available 07/19/2023 Are You Deaf Or Do You Have Serious Difficulty Hearing? No [email or web address] Information not available 07/19/2023 General Stress Level? Moderate [email or web address] Information not available 07/19/2023 Live Alone Of With Others? Alone Information not available 07/19/2023 Do You Have A Medical Power Of Wheel Roller? Yes Good Friend, Gayla Ruiz MIGRATION.53641 33855 Information not available 12/23/2022 What Was The Date Of Your Most Recent Tobacco Screening? 03/05/2021 MIGRATION.04895 37992 Information not available 12/23/2022 Do You Have Any Pets? Yes MIGRATION.69285 15519 Information not available 12/23/2022 What Is Your Relationship Status? Single MIGRATION.17588 63370 Information not available 12/23/2022 Do You Use Your Seat Belt Or Car Seat Routinely? Yes MIGRATION.77354 53008 Information not available 12/23/2022 Do You Have Smoke And Carbon Monoxide Detectors In Your Home? Yes MIGRATION.31964 83633 Information not available 12/23/2022 At What Age Did You Start Smoking Tobacco? 24 MIGRATION.10321 86384 Information not available 12/23/2022 Are You Passively Exposed To Smoke? Yes MIGRATION.19279 75986 Information not available 12/23/2022 Are There Any Smokers In Your House? Yes MIGRATION.24208 53804 Information not available 12/23/2022 How Much Tobacco Do You Smoke? 1 PPW MIGRATION.16921 80833 Information not available 12/23/2022 Do You Use Sunscreen Routinely? Yes MIGRATION.17653 67333 Information not available 12/23/2022 How Many Years Have You Smoked Tobacco? 25 MIGRATION.92224 02684 Information not available 12/23/2022 Have You Recently Traveled Abroad? No MIGRATION.69491 81306 Information not available 12/23/2022 Do You Have Difficulty Walking Or Climbing Stairs? Yes MIGRATION.02401 05357 Information not available 12/23/2022 Do You Have Any Dietary Restrictions? No MIGRATION.70917 93608 Information not available 12/23/2022 Sex: Female Functional Status Question Answer Note LastModified by Organizat ion Details LastModified Time Do you use any illicit or recreational drugs? No MIGRATION.125440 4696 Information not available 12/23/2022 Do you or have you ever used any other forms of tobacco or nicotine? No MIGRATION.477985 0668 Information not available 12/23/2022 What is your level of alcohol consumption? None MIGRATION.015539 8891 Information not available 12/23/2022 Do you or have you ever used smokeless tobacco? Never used smokeless tobacco MIGRATION.795769 4321 Information not available 12/23/2022 Do you have transportation difficulties? Yes MIGRATION.837889 6942 Information not available 12/23/2022 Are you able to walk? YESASSIST [email or web address] Information not available 07/19/2023 Do you have difficulty doing errands alone? No MIGRATION.833293 7158 Information not available 12/23/2022 Are you able to care for yourself? Yes MIGRATION.269627 6335 Information not available 12/23/2022 Do you have difficulty dressing or bathing? No MIGRATION.049600 7791 Information not available 12/23/2022 Do you or have you ever used e-cigarettes or vape? Never used electronic cigarettes MIGRATION.500712 2987 Information not available 12/23/2022 What is your exercise level? None MIGRATION.364937 2373 Information not available 12/23/2022 Mental Status Question Answer Note LastModified by Organizat ion Details LastModified Time Do you have difficulty concentrating, remembering or making decisions? No MIGRATION.307117852 6 Information not available 12/23/2022 Family History Relationship Description Onset Age of this Age Resolved Age Notes LastModified by Organization Details LastModified Time Father Heart disease MIGRATION.678 [id number] Not available 12/23/2022 04:42:14 Father Hypertensive disorder MIGRATION.024 [id number] Not available 12/23/2022 04:42:14 Father Diabetes mellitus MIGRATION.457 8617060 Not available 12/23/2022 04:42:14 Mother Heart disease MIGRATION.918 4466945 Not available 12/23/2022 04:42:14 Mother Family history of malignant neoplasm MIGRATION.631 4551039 Not available 12/23/2022 04:42:14 Mother Diabetes mellitus MIGRATION.544 9860037 Not available 12/23/2022 04:42:14 Medical History Condition [...] high-dose, quadrivalent, PF 0 completed Not Available [facility] 05/03/2023 16:25:58 Pneumococcal conjugate PCV 13 0 completed Not Available [facility] 05/03/2023 16:25:58 Past Encounters Encounter ID Performer Location Encounter Start Date Encounter Closed Date Diagnosis/Indication Diagnosis SNOMED-CT Code Diagnosis ICD10 Code Diagnosis Note [id number] MD LIZETTE Oropeza[facility] [place] [address] [facility] [address] [place] [address] 02/05/2021 00:00:00 02/10/2021 12:15:37 [id number] Ran Carney MD [facility] [address] [place] [address] 02/27/2021 00:00:00 03/02/2021 16:07:23 [id number] Ran Carney MD [facility] [place] [address] [place] [address] 03/05/2021 00:00:00 03/15/2021 22:29:08 [id number] ANA Wilson [facility] [place] [address] [place] [address] 03/17/2021 00:00:00 03/21/2021 18:02:04 [id number] Ran Carney MD [facility] [place] [address] [place] [address] 04/16/2021 00:00:00 04/16/2021 10:28:54 [id number] ANA Wilson [facility] [place] [address] [place] [address] 06/23/2021 00:00:00 06/23/2021 22:41:56 [id number] ANA Wilson [facility] [place] [address] [place] [address] 09/08/2021 00:00:00 09/23/2021 18:26:16 [id number] Ran Carney MD [facility] [place] [address] [place] [address] 01/14/2022 00:00:00 02/01/2022 17:50:53 [id number] Ran Carney MD [facility] [place] [address] [place] [address] 02/04/2022 00:00:00 02/04/2022 09:06:32 [id number] Ran Carney MD [facility] [place] [address] [place] [address] 02/20/2022 00:00:00 02/20/2022 09:19:09 [id number] Ran Carney MD [facility] [place] [address] [place] [address] 03/13/2022 00:00:00 03/13/2022 09:18:53 [id number] Kendall Magana MD [facility] [place] [address] [place] [address] 06/15/2022 00:00:00 06/21/2022 10:43:56 [id number] Ran Carney MD [facility] [address] [place] [address] 09/25/2022 00:00:00 09/25/2022 10:14:07 [id number] Ran Carney MD [facility] [address] [place] [address] 11/13/2022 00:00:00 11/22/2022 13:34:26 [id number] Ran Carney MD [facility] [address] [place] [address] 12/11/2022 00:00:00 12/11/2022 09:22:01 [id number] Ran Carney MD [facility] [place] [address] [place] [address] 01/22/2023 10:02:11 01/25/2023 09:58:48 Partial thickness rotator cuff tear [id number] M75.101 Neck pain 15841428 M54.2 Ulnar nerv e entrapment at elbow 432891694 G56.21 [id number] ANA Wilson [facility] [place] [address] [place] [address] 02/10/2023 13:59:07 02/10/2023 14:36:32 Pruritic rash 42610826 L28.2 Rx for steroid cream and nystatin as well to utilize both for different rashes. groin with jud that needs antifungal tx. steroid cream for buttock region. Hypothyroidism 32936659 E03.9 due for TFTs. not on supplement therapy. Hyperlipidemia 52973566 E78.5 on statin therapy, due for fasting lipids Impaired g lucose tolerance 0670802 R73.03 a1c due w/IGT hx Long-term drug therapy 568986980 Z79.899 all routine bmp, lft and CBC labs due History of polyp of colon 502678134 Z86.010 due for colonoscop y f/u screening [id number] Ran Carney MD [facility] [place] [address] [place] [address] 02/24/2023 08:28:05 02/24/2023 10:01:39 Pain in left foot [id number] 00199 M79.672 [id number] Ran Carney MD [facility] [place] [address] [place] [address] 03/03/2023 08:28:43 03/03/2023 09:08:55 Pain in left foot [id number] 74457 M79.672 [id number] Ran Carney MD [facility] [place] [address] [place] [address] 2023 08:45:18 2023 09:31:50 Pain in left foot 8604440093 20186 M79.672 [id number] Ran Carney MD [facility] [place] [address] [place] [address] 04/02/2023 08:46:25 04/02/2023 09:14:02 Pain in left foot 5772664354 01830 M79.672 [id number] Ran Carney MD [facility] [address] [place] [address] 04/21/2023 08:32:44 04/23/2023 14:32:27 Closed fracture of metatarsal bone 31013026 S92.315D [id number] Ran Carney MD [facility] [place] [address] [place] [address] 05/14/2023 08:47:32 05/14/2023 10:06:58 Closed fracture of metatarsal bone 01612221 S92.315D [id number] Ran Carney MD [facility] [place] [address] [place] [address] 06/04/2023 08:42:16 06/04/2023 12:28:24 Closed fracture of metatarsal bone 53652541 S92.315D [id number] Ran Carney MD [facility] [place] [address] [place] [address] 06/23/2023 08:24:05 06/23/2023 09:07:56 Osteoarthritis of right knee joint 2603800494 07465 M17.11 [id number] Ran Carney MD [facility] [place] [address] [place] [address] 07/02/2023 08:48:50 07/05/2023 15:12:23 Closed fracture of metatarsal bone 02869917 S92.315D [id number] ANA Wilson [facility] [place] [address] [place] [address] 07/19/2023 10:26:00 07/19/2023 11:22:00 Adult health examination 471960600 Z00.00 mawe completed /routine f/u completed Screening for disorder 412363096 Z13.9 Hypothyroidism 47188921 E03.9 due for TFTs. not on supplement therapy. Hyperlipidemia 87389658 E78.5 on statin therapy, due for fasting lipids Impaired g lucose tolerance 5521351 R73.03 a1c due w/IGT hx Long-term drug therapy 986176804 Z79.899 all routine bmp, lft and CBC labs due History of polyp of colon 088744327 Z86.010 Still due for 1 year f/u colonoscop y screening that is past due. ordered again Screening mammography 24 031816 Z12.31 mammogram due in jul. Smoker 42553168 F17.200 LDCT scan ordered Osteoporosis 05793843 M8 1.0 UTD on dexa 2022 Vitamin D deficiency 347 64983 E55.9 refill vitamin D that was very low on ortho screening. Postmenopa usal bleeding 92061877 N95.0 refer to gyne promptly as she had occult PMB. Acute dermatitis 4800363 6 L30.9 Rx for steroid cream, prednisone taper, antifungal cream and doxy 100mg bid course to treat different derm rashes and lesions present on exam today. [id number] Ran Carney MD [facility] [place] [address] [facility] [address] [place] [address] 07/30/2023 08:47:25 07/30/2023 09:53:07 Closed fracture of metatarsal bone 36211038 S92.315D [id number] Ran Carney MD [facility] [place] [address] 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 AST was 60 on jul labs. [id number] Ran Carney MD [facility] [place] [address] [facility] [address] [place] [address] 01/03/2024 14:15:36 01/03/2024 17:01:29 Closed fracture of metatarsal bone 92461291 S92.315D Health Concerns Section Related Observation LastModified by Organization Detai ls LastModified Time None Recorded Concern Status LastModified by Organization Details LastModified Time None Recorded Advance Directives Directive Y: Payers Encounter Date Sequence Insurance Name Policy Number Policy Thomas Covered Member ID Thomas Member ID Guarantor Name 07/19/2023 1 [facility] (MEDICARE REPLACEMENT/ ADVANTAGE - HMO) [id number] Yajaira Solo [id number] Yajaira Dye Behrend[employer] 07/30/2023 [employer] Yajaira Salguerorendt 08/27/2023 [employer] Yajaira Salguerorendt 09/02/2023 1 [facility] (MEDICARE REPLACEMENT/ ADVANTAGE - HMO) [id number] Yajaira Salguerorendt [id number] Yajaira Dye Behrendt 01/03/2024 [employer] Yjaaira Minadt Notes Date Note Type Note Provider Name [...] your bucket for review. ANA Wilson [address] [facility] [facility] [address], [place], [address], [facility] [employer] 07/20/2023 14:20:32 11/03/20 23 text/htm l patient [...] aggravate the situation. Ran Carney MD [address] [facility], [place] [address], [place], [address], [employer] 09/06/2023 15:42:37 09/02/20 23 text/htm l Generic [...] is recommended on that. ANA Wilson [address] [facility], [facility] [address], [place], [address], [employer] 09/22/2023 23:02:08 01/03/20 24 text/htm l patient [...] in near anatomic alignment. Ran Carney MD [address] [place] [address], [place] [address], [place], [address], [place] [facility] 01/03/2024 16:56:42 OBGyn Episode No OBEpisode recorded.
--- OUTSIDE RECORDS SUMMARY | 2025-04-02 14:34 | XMS_ITS | Data Portability ---
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 keppra, possibly related to V-tach Lumbago with sciatica 20 0993459 M54.42 we will revisit once she has had all her cardiology procedures done. Cont home stretches & exercises, Tylenol for pain. [id number] MD Genie Whitehalto (Adult Med) [address] [place] [address] 11/07/2018 11:45:37 11/07/2018 17:40:11 Essential hypertension 21180198 I10 Better today; no pacemaker placed. EP ablation done Gastroesop hageal reflux disease without esophagitis 278028937 K21.9 cont PPI, and PRN ranitidine for break-thro ugh. discussed possible side effect of keppra causing increased nausea, acid production . Also discussed NSAIDs & fosomax causing same. Vitamin D deficiency 347 15731 E55.9 Cardiology labs showed it was 29. Restart vit D supplement 50,000 iu weekly, recommend goal of 40 or greater w/ her hx of osteoporos is Low back pain 367475081 M54.[address] Higgins for ortho. If he is not able to evaluate or treat her low back, pt will call here for ortho spine referral. Ventricula r tachycardia 54655477 I47.2 s/p EP ablation, she has not been dizzy. But induced a. flutter only. Stopped coumadin; w/ APARICIO we can try reducing CCB to immediate relase 60mg BID dose and possibly wean off med if HR cont to be well controlled . Cont carvedilol . Cardiology f/u not until December or so. Reviewed labs & studies done by cardiology Lumbar radiculopathy [address] Higgins for ortho; radiating into left pelvic area; not sure if left 3rd & 4th toes are from low back. Needs further eval, will start w/ x-rays and see what ortho recommends . [id number] MD Arnaldo White (Adult Med) [address] [place] [address] 02/06/2019 10:53:19 02/07/2019 09:30:13 Ventricular tachycardia 96069479 I47.2 s/p EP ablation, she has not been dizzy since then until the past week. APARICIO also resolved. Essential hypertension 23168653 I10 Controlled ; no pacemaker placed. EP ablation done. Cont carvedilol , diltiazem, hctz Hyperlipidemia 60605551 E78.5 labs were good in Sep. LDL 97, cont statin Chronic ob structive pulmonary disease 58681925 J44.1 no recent exacerbati on; cont current inhalers, advised again to quit smoking Tobacco user 576294225 Z 72.0 patient again advised to quit smoking, has deferred any assistance . she will consider vaping w/ decreased nicotine. Dizziness 012459421 R42 Had greatly improved when she had cardiac ablation done. Current sxs possibly due to allergies, restart flonase. She had to reschedule f/u with neurology. Seasonal a llergic rhinitis 252787615 J30.2 restart flonase Pruritic disorder 273178 002 L29.9 to right ear, try few drops of witch vipul oil at bedtime to right ear. Spinal pankaj nosis of lumbar region 14279970 M48.061 Reviewed MRI results w/ pt. disc [...] gets benefit w/o sedating effects of THC. [id number] Kendall Magana MD [facility] [place] [address] [place] [address] 08/22/2024 08:53:10 08/22/2024 10:47:59 Obesity 419282413 E66.9 discussed healthy diet, exercise, controllin g carbohydra edinson and added sugars in the diet Body mass index measurement declined 5497202557 03834 Z53.20 Patient declined weight today Chronic ob structive pulmonary disease 05140917 J44.9 Patient is stable on Symbicort and albuterol therapy Benign ess ential hypertension 3010065 I10 Boost to valsartan 80mg daily. BP is elevated 140/90 today. Refill hydrochlor othiazide 12.5 mg daily Hyperlipidemia 84417799 E78.5 Restart lovastatin 20 mg daily and check fasting lipid panel Mixed anxi ety and depressive disorder 612193812 F41.8 Refill citalopram 40 mg daily. Patient is stable Seizure disorder 2753134 02 G40.909 Patient is taking Keppra and follows with Neurology. She is unsure of how long it has been since she has had seizures. Greater than 6 months but under 2 years since last episode Obstructiv e sleep apnea syndrome 13112325 G47.33 wearing cpap nightly per patient report. Long-term drug therapy 272544502 Z79.891 All labs are due Candidiasis of skin 4988 3006 B37.2 Start intensive nystatin cream topped with powder and fluconazol e treatment course and refer promptly to Dermatolog y for more in-depth management Prediabetes 567481248 R7 3.03 Refill metformin 500 mg daily and check updated insulin and A1c labs Acid reflux 858492726 K2 1.9 Restart omeprazole 40 mg daily for reflux management . She had ran out of the prescripti on refills History of polyp of colon 837942839 Z86.0100 Patient has a history of colon polyps and is due for follow-up procedure Administra tion of influenza vaccine 64985390 Z23 Flu shot given today Positive s creening for depression on PHQ-9 (Patient Health Questionnaire 9) 5999314998 91619 Z13.31 Patient scored a 6 on screening today. Her citalopram is managing her mental health without acute concerns [id number] Kendall Magana MD [facility] [place] [address] [place] [address] 09/25/2024 13:41:52 09/25/2024 14:56:56 Benign essential hypertension 2354887 I10 bp much better on repeat checks today. 130/80 range. valsartan 80mg daily and HCTZ 12.5mg daily. Prediabetes 511448534 R7 3.03 5.8% A1c. Continue metformin 500 mg daily Hyperlipidemia 37535693 E78.5 Continue lovastatin 20 mg daily. Labs are stable repeat again in February Chronic ob structive pulmonary disease 37511408 J44.9 Patient is stable on Symbicort and albuterol therapy Mixed anxi ety and depressive disorder 059027932 F41.8 citalopram 40 mg daily. Patient is stable Acid reflux 163169478 K2 1.9 omeprazole 40 mg daily for reflux management . Symptoms are under good control now that she has restarted PPI therapy Seizure disorder 2747664 02 G40.909 Patient is taking Keppra and follows with Neurology. She is unsure of how long it has been since she has had seizures. Greater than 6 months but under 2 years since last episode Obstructiv e sleep apnea syndrome 04400265 G47.33 wearing cpap nightly per patient report. Obesity 988045338 E66.9 discussed healthy diet, exercise, controllin g carbohydra edinson and added sugars in the diet Long-term drug therapy 720878932 Z79.891 Next set of lab orders given for February History of polyp of colon 860607554 Z86.0100 Patient has a history of colon polyps and is due for follow-up procedure new referral given for [facility] because her insurance is not being accepted at [facility] any longer Dizziness 128870841 R42 Proceed with MRI of the brain with and without contrast for increasing ly progressiv e dizziness that is causing imbalance and difficulty staying steady at times. Screening mammography 24 282625 Z12.31 Mammogram order also given for [facility] Body mass index 30+ - obesity 416460561 Z68.30 BMI is 30.6 [id number] Kendall Magana MD [facility] [address] [place] [address] 01/25/2025 13:48:05 01/25/2025 14:42:58 Pain in left foot 9463352954 00421 M79.672 refer to procurement cost coordinator specific now to have sales merchandising specialist consult with her on her foot injury that occurred in 2022. Specifical ly to the [facility] in [place] History of fracture 3910 09210 Z87.81 hx of left traumatic foot fracture from metal frame approx 60 pounds that that directly fell on top of the left foot and fractured bones, and 6 months of walking boot. still in pain constant. [id number] Kendall Magana MD [facility] [address] [place] [address] 02/19/2025 12:02:57 02/19/2025 16:29:07 Overweight in adulthood with body mass index of 25 or more but less than 30 838117461 E66.3 Z68.29 discussed healthy diet, exercise, controllin g carbohydra edinson and added sugars in the diet Pulmonary embolism 93679 [address] I26.[address] for evaluation into coagulopat hy workup. For now patient is taking Eliquis 2.5 mg twice daily Acute deep vein thrombosis of lower limb 4398939471 08 I82.492 Treatment as above Ex-smoker 2527516 Z87.89 1 quite smoking in November after extensive hx of tobacco use. [id number] Kendall Magana MD [facility] [place] [address] [place] [address] 03/05/2025 11:49:47 03/05/2025 12:42:42 Left ventricular systolic dysfunction 330657984 I51.89 25-35% ejection fraction. Patient is following up formally within the next 2 weeks with Cardiology . They will decide treatment options for her which may include starting something like Entresto Diastolic dysfunction 35 49664 I51.89 also noted on echo Right vent ricular systolic dysfunction 666445677 I51.89 Reviewed on echo Left atria l hypertrophy 965762063 I51.7 Noted Pulmonary embolism 40232 003 I26.99 seeing hematology on wednesday. For now patient is taking Eliquis 2.5 mg twice daily Acute deep vein thrombosis of lower limb 3797886203 08 I82.492 Treatment as above Ex-smoker 7359457 Z87.89 1 quite smoking in November after extensive hx of tobacco use. Obese class I 1426128291 14853 E66.811 discussed healthy diet, exercise, controllin g carbohydra edinson and added sugars in the diet Health Concerns Section Related Observation LastModified by Organization Detai ls LastModified Time None Recorded Concern Status LastModified by Organization Details LastModified Time None Recorded Advance Directives Directive N: Payers Encounter Date Sequence Insurance Name Policy Number Policy Thomas Covered Member ID Thomas Member ID Guarantor Name 08/22/2024 1 [facility] (MEDICARE REPLACEMENT/A DVANTAGE - HMO) [id number] Yajaira Solo [id number] Gates Behrendt 09/25/2024 1 [facility] (MEDICARE REPLACEMENT/A DVANTAGE - HMO) [id number] Gates Behrendt [id number] [employer] 01/25/2025 1 [facility] (MEDICARE REPLACEMENT/A DVANTAGE - HMO) [id number] [employer] Behrendt [id number] Gates Behrendt 02/19/2025 1 [facility] (MEDICARE REPLACEMENT/A DVANTAGE - HMO) [id number] Gates Behrendt [id number] Gates Behrendt 03/05/2025 1 [facility] (MEDICARE REPLACEMENT/A DVANTAGE - HMO) [id number] Gates Behrendt [id number] [employer] Notes Date Note Type Note Provider Name and Address Organization Details Recorded Time 08/22/20 24 text/htm l Patient takes Keppra 500 mg twice daily for history of seizure disorder. She follows with Neurology and is stable. Dr. Vasquez is her neurologist. She has been seizure-free for: She is unsure. ANA Wilson Attn: Accounting,[address] [place], [address], [facility] 08/22/2024 10:29:27 08/22/20 24 text/htm l Anxiety/DepressionReported [...] mg daily. ANA Wilson Attn: Accounting,[address] [facility], [place], [address], [facility] 08/22/2024 10:29:27 09/25/20 24 text/htm l Anxiety/DepressionReported [...] is unsure. ANA Wilson Attn: Accounting,[address] [facility], [place], [address], [facility] 09/25/2024 14:46:01 01/26/20 25 text/htm l FootReported [...] pain. she wants a referral to see procurement cost coordinator. Her old procurement cost coordinator retired. she wants to stay local for procurement cost coordinator. Dr. Baldwin is stating she needs more treatment, but patient states he is the doctor for work comp. ANA Wilson Attn: Accounting,[address] [facility], [place], [address], [facility] 02/18/2025 14:11:53 02/20/20 25 text/htm l Patient presents today after hospitalization what she was found to have acute DVT of the left lower extremity and bilateral pulmonary embolisms throughout. She is anticoagulated. She is feeling fine, she does feel that shortness of breath has improved since she has been on blood thinner. She is presenting for follow-up. She recently has also quit smoking. ANA Wilson Attn: Accounting,[address] [facility], [place], [address], [facility] 03/04/2025 21:46:03 03/05/20 25 text/htm l Patient presents today because she wants to go over her echocardiogram that the exercise equipment specialist ordered. Recent HPI: acute DVT of the left lower extremity and bilateral pulmonary embolisms throughout. She is anticoagulated. She is feeling fine, she does feel that shortness of breath has improved since she has been on blood thinner. She is presenting for follow-up. She recently has also quit smoking. ANA Wilson Attn: Accounting,[address] [facility], [place], [address], [facility] 03/22/2025 22:42:14 OBGyn Episode No OBEpisode recorded.
--- OUTSIDE RECORDS SUMMARY | 2025-04-02 14:34 | XMS_ITS | Clinical Summary ---
Author Organization [facility] Address [address] [place] [address] Phone Care Team Providers Care Loan Originator Name Role Phone Nahed Ceballos Primary Care Provider [phone] Allergies No known active allergies Medications lovastatin [...] times daily. 03/08/2019 Active ergocalciferol (VITAMIN D) 22606 UNIT Capsule Take 1 Cap by mouth [...] Comments Hepatitis C Virus (HCV) Screening 1954 Cologuard 1999 Colonoscopy 1999 Colorectal Cancer Screening 1999 Immunochemical Fecal Occult Blood 1999 Zoster Immunization (1 of 2) 2004 Pneumococcal Immunization (5 0+ years) (2 of 2 - PCV) 10/26/2013 10/26/2012, 10/25/2011 SARS-COV-2 Immunization (3 - season) 2024 01/18/2021, 12/19/2020 Influenza Immunization (Seas on Ended) 2025 08/13/2015, 08/03/2015, 10/26/2012 Respiratory Syncytial Virus (RSV) Immunization (Adult) (1 - 1-dose 75+ series) 2029 Pneumococcal Immunization Combined Discontinued 10/26/2012, 10/25/2011 DTaP/Tdap/Td Immunization Discontinued 09/04/2015 TdaP Immunization Completed 09/04/2015 Hepatitis B Immunization Aged Out No longer eligible based on patient's age to complete this topic Human Papillomavirus (HPV) Immunization Aged Out No longer eligible based on patient's age to complete this topic Meningococcal Immunization (ACWY) Aged Out No longer eligible based on patient's age to complete this topic Rotavirus Immunization Aged Out No lo nger eligible based on patient's age to complete this topic Insurance MEDICAID [employer] Care Teams Loan Originator Relationship Specialty Start Date End Date Nahed Ceballos PA [address] [address] PCP - General Adult Medicine 03/01/19
--- OUTSIDE RECORDS SUMMARY | 2025-04-02 14:34 | XMS_ITS | Clinical Summary ---
Author Organization [facility] Address [address] [place] [address] Care Team Providers Care Navigating Officer Name Role Phone Brenda Bowie Primary Care Pr ovider Gutierrez Melendez MD Unavailable [phone] Allergies No known active allergies Medications valsartan [...] (01/17/2021): Added automatically from request for surgery [id number] Sustained ventricular tachycardia 11/18/2020 Overview (11/18/2020): Added automatically from request for surgery [id number] Pain in wrist 12/21/2016 Closed fracture of distal end of radius 09/24/20 16 Encounters Date Type Department Care Team Description 03/05/[address] 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 Gender Identity Not on file Sexual Orientation [...] 7:16 AM CDT Height 165.1 cm (5' 5) 02/23/2025 7:16 AM CDT Body Mass Index 29.62 02/23/2025 7:16 AM CDT Plan of Treatment Upcoming Encounters Date Type Department Care Team (Late st Contact Info) Description 04/16/2025 10:00 AM CDT Hospital Encounter [address] [address] Tye Muir DO [address] [facility] [address] 04/16/2025 10:00 AM CDT - 04/16/2025 10:30 AM CDT Surgery [address] [address] Tye Muir DO [address] [facility] [place] [address] COLONOSCOPY Scheduled Procedures Name Priority Associated Diagnoses [...] 3 Months Insurance [employer] MEDICARE PPO [address] MDCR HMO REF [facility] MEDICARE ADVANTAGE Care Teams Navigating Officer Relationship Specialty Start Date End Date Brenda Bowie PA PCP - General 06/12/20 Gutierrez Melendez MD [address] [place] [address] Consulting Physician Cardiology 02/20/21
--- OUTSIDE RECORDS SUMMARY | 2025-04-02 14:34 | XMS_ITS | Referral Summary ---
Author Organization [facility] Address [address] [place] [address] Care Team Providers Care Animal Geneticist Name Role Phone Brenda Bowie Primary Care Pr ovider Gutierrez Melendez MD Unavailable [phone] Encounters Date Type Department Care Team Description 03/05/2025 Telephone [facility] Gastroenterology at [address] [place] [address] April Urrutia Prep Instructions 02/23/2025 7:06 AM CDT - 02/23/2025 11:59 PM CDT Hospital Encounter [facility] [address] [place] [address] Encounter for screening mammogram for malignant neoplasm [...] (01/17/2021): Added automatically from request for surgery [id number] Sustained ventricular tachycardia 11/18/2020 Overview (11/18/2020): Added automatically from request for surgery [id number] Pain in wrist 12/21/2016 Closed fracture of [...] on file 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 Gender Identity Not on file Sexual [...] Description 04/16/2025 10:00 AM CDT Hospital Encounter [address] [address] Tye Muir DO [address] [facility] [address] [place] [address] [place] [address] 04/16/2025 10:00 AM CDT - 04/16/2025 10:30 AM CDT Surgery [address] [address] Tye Muir DO [address] [facility] [address] [place] [address] [place] [address] COLONOSCOPY Scheduled Procedures Name Priority Associated Diagnoses [...] 3 Months Insurance [employer] CHOICE MEDICARE PPO [facility] MDCR HMO REF [facility] Address: [address] [address] [place] [address] [facility] MEDICARE ADVANTAGE [facility] Address: [address] [address] Care Teams Animal Geneticist Relationship Specialty Start Date End Date Brenda Bowie PA PCP - General 06/12/20 Gutierrez Melendez MD [address] [place] [address] Consulting Physician Cardiology 02/20/21
--- OUTSIDE RECORDS SUMMARY | 2025-04-02 14:34 | XMS_ITS | Clinical Summary ---
Author Organization [facility] Address [address] [place] [phone] Phone Care Team Providers Care Director Of Assisted Living Name Role Phone Kendall Magana MD Primary Care Provider [phone] Allergies No known active allergies Medications budesonide-form [...] Tablet 02/16/2025 12:29 PM CDT 03/25/20 Active Problems Problem Noted Date Diagnosed Date [...] Encounters Date Type Department Care Team Description 03/20/2025 External Device Data STL ABSTRACTION Provider, Abstract 03/20/2025 External Device Data STL ABSTRACTION Provider, Abstract 03/20/2025 External Device Data STL ABSTRACTION Provider, Abstract 03/14/2025 External Device Data STL ABSTRACTION Provider, Abstract 03/13/2025 External Device Data STL ABSTRACTION Provider, Abstract 03/09/2025 2:30 PM CDT Office Visit [facility] - [place] [address] [address] Johnathon Osei MD Acute deep vein thrombosis (DVT) of proximal vein of left lower extremity (CMS/HCC) (Primary Dx) 02/20/2025 External Device Data STL ABSTRACTION Provider, Abstract 02/20/2025 External Device Data STL ABSTRACTION Provider, Abstract 02/20/2025 External Device Data STL ABSTRACTION Provider, Abstract 02/15/2025 12:59 AM CDT - 02/16/2025 12:45 PM CDT Hospital Encounter [facility] Med Surg Step Down [place] [address] [place] [address] Aquiles Sanchez MD Weitzel, Laura Jean, MD Sangani, Vikram, MD Acute pulmonary embolism (CMS/HCC) Discharge Disposition: Home or Self Care 02/15/2025 Travel from Last 3 Months Family History Medical History Relation Name Comments Diabetes Father Heart Disease Father Bone Cancer Mother Diabetes Mother Heart Disease Mother Relation Name Status Comments Father Mother Social History Tobacco Use Types Packs/Day Years Used Date Smoking Tobacco: Former Cigarettes 1 48.4 S tarted: 10/25/1976 Smokeless Tobacco: Never Tobacco Cessation:Counseling Given: Not Answered Alcohol Use Standard Drinks/Week Comments Yes 0 (1 standard drink = 0.6 oz pur e alcohol) Socially Feeling Safe Answer Date Recorded Are you [...] Sign Reading Time Taken Comments Blood Pressure 102/65 03/09/2025 2:25 PM CDT Pulse 79 03/09/2025 2:25 PM CDT Temperature 36.4 C (97.5 F) 03/09/2025 2:25 PM CDT Respiratory Rate 15 03/09/2025 2:25 PM CDT Oxygen Saturation 93% 03/09/2025 2:25 PM CDT Inhaled Oxygen Concentration - - Weight 82.5 kg (181 lb 12.8 oz) 03/09/2025 2:25 PM CDT Height 165.1 cm (5' 5) 03/09/2025 2:25 PM CDT Body Mass Index 30.25 03/09/2025 2:25 PM CDT Plan of Treatment Upcoming Encounters Date Type Department Care Team (Late st Contact Info) Description 04/09/2025 2:30 PM CDT Office Visit [facility] - [place] [address] [facility] [address] [place] [address] Johnathon Osei MD [address] [facility] [address] [place] [address] Health Maintenance Due Date Last Done Comments DIABETES ANNUAL FOOT EXAM 1972 DIABETES ANNUAL RETINAL EXAM 1972 DIABETES HBA1C Q 6 MONTHS 1972 DIABETES MICROALBUMIN ANNUAL SCREEN 1972 LDL CHOLESTEROL ANNUAL 1972 FIT-DNA Q 3 years 1999 FIT/FOBT Q [...] - T d or Tdap) 09/04/2025 09/04/2015 BREAST CANCER SCREENING 02/23/2026 02/23/2025, 02/23 COLORECTAL SCREENING 02/07/2032 02/06/2022, 07/12/20 14 Colorectal [...] of9 resultswithin the time period is included. Pathologist [facility] [place] GLUCOSE POC 113(H) 74 - 99 mg/dL 02/16/2025 8:13 AM CDT [facility] SPECIMEN SOURCE, GLUCOSE POC Whole Blood 02/16/2025 8:13 AM CDT [facility] Blood, whole 02/16/2025 8:13 AM CDT 02/16/2025 8:24 AM CDT us Domingo Adler MD POINT OF CARE TESTING Final Re sult [facility] CLIA# [id number] [address] [place] [address] * UNFRACTIONATED HEPARIN MONITORING (02/16/2025 6:26 AM CDT) Only the most recent of5 resultswithin the time period is included. ANTI-XA UNFRAC HEP 0.65 See Interpreta tion. IU/mL 02/16/2025 7:09 AM [facility] Blood Venipuncture / Unknown 02/16/2025 6:26 AM CDT 02/16/2025 6:46 AM T [facility] - [facility] - 02/16/2025 7:09 AM CDT Unfractionated Heparin Therapeutic Range: 0.30-0.70 IU/ml Refer to pharmacy adult heparin protocol for further recommendation. The reference range for this test is specific to the anticoagulant and is not appropriate for monitoring patients on a DOAC protocol. us Domingo Adler MD HEMATOLOGY ORDERABLES Final Re sult [facility] CLIA# [id number] [address] [place] [address] * CBC WITH DIFFERENTIAL (02/16/2025 6:26 AM CDT) WBC 8.1 4.0 - 9.8 K/uL 02/16/2025 7:04 AM [facility] RBC 4.67 3.90 - 4.90 M/uL 02/16/2025 7:04 AM [facility] HEMOGLOBIN 13.9 11.8 - 14.8 g/dL 02/16/2025 7:04 AM [facility] HEMATOCRIT 43.6 35.5 - 44.0 % 02/16/2025 7:04 AM [facility] MCV 93.4 82.0 - 99.0 fL 02/16/2025 7:04 AM [facility] MCH 29.8 27.2 - 32.6 pg 02/16/2025 7:04 AM [facility] MCHC 31.9 31.5 - 35.5 g/dL 02/16/2025 7:04 AM [facility] RDW 13.1 11.5 - 14.5 % 02/16/2025 7:04 AM [facility] - . [facility] RDW-STDEV 44.6 37.1 - 48.7 fL 02/16/2025 7:04 AM T [facility] PLATELETS 225 140 - 350 K/uL 02/16/2025 7:04 AM T [facility] MPV 10.1 9.3 - 12.4 fL 02/16/2025 7:04 AM T [facility] NEUTROPHILS 62 % 02/16/2025 7:04 AM T [facility] LYMPHOCYTES 25 % 02/16/2025 7:04 AM [employer] MONOCYTES 10 % 02/16/2025 7:04 AM T [facility] EOSINOPHILS 2 % 02/16/2025 7:04 AM [facility] [facility] BASOPHILS 1 % 02/16/2025 7:04 AM [facility] [facility] IMMATURE GRANULOCYTES 0 % 02/16/2025 7:04 AM T [facility] NEUTROPHIL ABSOLUTE 5.00 1.90 - 7.00 K/uL 02/16/2025 7:04 AM [facility] [facility] LYMPHOCYTE ABSOLUTE 2.06 0.70 - 4.50 K/uL 02/16/2025 7:04 AM T [facility] MONOCYTE ABSOLUTE 0.85 0.10 - 1.30 K/uL 02/16/2025 7:04 AM [facility] [facility] EOSINOPHIL ABSOLUTE 0.16 0.00 - 0.70 K/uL 02/16/2025 7:04 AM [facility] BASOPHILS ABSOLUTE 0.05 0.00 - 0.20 K/uL 02/16/2025 7:04 AM [facility] [facility]ATORY SERVICES - . [facility] IMMATURE GRANULOCYTES ABSOLUTE 0.02 0.00 - 0.03 K/uL 02/16/2025 7:04 AM [facility] [facility] Blood Venipuncture / Unknown 02/16/2025 6:26 AM CDT 02/16/2025 6:46 AM CDT us Domingo Adler MD HEMATOLOGY ORDERABLES Final Re sult [facility] JACQUELIN# [id number] [address] [place] [address] * (ABNORMAL) BASIC METABOLIC PANEL (02/16/2025 6:26 AM CDT) SODIUM 135(L) 136 - 145 mmol/L 02/16/2025 7:23 AM [facility] POTASSIUM 4.0 3.5 - 5.0 mmol/L 02/16/2025 7:23 AM [facility] CHLORIDE 103 98 - 107 mmol/L 02/16/2025 7:23 AM [facility] CO2 23 22 - 29 mmol/L 02/16/2025 7:23 AM [facility] CALCIUM 9.0 8.6 - 10.2 mg/dL 02/16/2025 7:23 AM [facility] BUN 10 8 - 23 mg/dL 02/16/2025 7:23 AM [facility] CREATININE 0.77 0.51 - 0.95 mg/dL 02/16/2025 7:23 AM [facility] Comment:The GFR result is no t clinically significant on patients <18 or >70 years of age. GLUCOSE 108(H) 74 - 99 mg/dL 02/16/2025 7:23 AM [facility] GFR >60 mL/min/1.7 3 sq meter 02/16/2025 7:23 AM [facility] Comment:eGFR calculated with 2020 CKD-EPI equation. Vegetarian diet, extremely high or low muscle mass, and may affect results. Cystatin C with Glomerular Filtration Rate is a suitable alternative for these patients. ANION GAP 9 8 - 16 mmol/L 02/16/2025 7:23 AM [facility] Blood Venipuncture / Unknown 02/16/2025 6:26 AM CDT 02/16/2025 6:46 AM CDT us Domingo Adler MD CHEMISTRY ORDERABLES Final Res ult [facility]# [id number] [address] [place], [place] [id number] * ECHOCARDIOGRAM W/ CONTRAST AGENT (02/15/2025 1:18 PM CDT) EJECTION FRACTION 45 INTERFACE SYSTEM 02/15/2025 12:4 1 PM CDT Narrative INTERFACE SYSTEM - 02/15/2025 4:[address]T [address] [address] [email or web address] Transthoracic Echocardiogram Patient: Yajaira Solo Study ID: ECHO COMPLETE - Gender: F : 1955 Age: 69 Race: [facility] Height 167.6cm Study Date: 02/15/2025 Weight: 84kg Access. #: [id number] BP: *Referring Physician:Ninfa Hernandez Kristopher Andrew *Ordering Physician:Ninfa Hernandez academic associate: Nurse: Indications: Pulmonary embolism. STUDY CONCLUSIONS: SUMMARY: [...] ryan values outside specified reference range. (N) mroe values inside specified reference range. Procedure data: [...] PM. Prepared and Electronically Authenticated Dino Calderon [id number] Procedure Note Dino Calderon MD - 02/15/2025 [place] [address] [email or web address] Transthoracic Echocardiogram Patient: Yajaira Solo Study ID: ECHO COMPLETE - Gender: F : 1955 Age: 69 Race: CAU Height 167.6cm Study Date: 02/15/2025 Weight: 84kg Access. #: [id number] BP: *Referring Physician:Ninfa Hernandez Kristopher Andrew *Ordering Physician:Ninfa Hernandez academic associate: Nurse: Indications: Pulmonary embolism. STUDY CONCLUSIONS: SUMMARY: [...] PM. Prepared and Electronically Authenticated Dino Calderon [id number] Ninfa Ch MD US ORDERABLES Final Resu lt Performing Organization Address City/[facility] Co de Phone Number INTERFACE SYSTEM Refer to clinic/hospital department * PTT (02/15/2025 3:12 AM CDT) PTT 29.8 24.4 - 36.4 seconds 02/15/2025 3:54 AM CDT [facility] Comment: PTT Therapeutic Range: Heparin Level PTT (seconds) <0.10 units/mL <55.8 0.10 - 0.30 units/mL 55.8 - 74.3 0.30 - 0.70 units/mL* 74.3 - 111.2* 0.70 - 1.00 units/mL 111.2 - 138.9 *corresponds to therapeutic range for unfractionated heparin Blood Venipuncture / Unknown 02/15/2025 3:12 AM CDT 02/15/2025 3:31 AM CDT Ninfa Ch MD HEMATOLOGY ORDERABLES Marla l Result Performing Organization Address [facility] de Phone Number [facility] [employer] [facility] CLIA# [id number] [address] [place] [address] * CBC WITHOUT DIFFERENTIAL (02/15/2025 3:12 AM CDT) WBC 9.2 4.0 - 9.8 K/uL 02/15/2025 3:48 AM CDT [facility] RBC 4.64 3.90 - 4.90 M/uL 02/15/2025 3:48 AM CDT [facility] HEMOGLOBIN 13.7 11.8 - 14.8 g/dL 02/15/2025 3:48 AM CDT [facility] HEMATOCRIT 42.6 35.5 - 44.0 % 02/15/2025 3:48 AM CDT [facility] MCV 91.8 82.0 - 99.0 fL 02/15/2025 3:48 AM CDT [facility] MCH 29.5 27.2 - 32.6 pg 02/15/2025 3:48 AM CDT [facility] MCHC 32.2 31.5 - 35.5 g/dL 02/15/2025 3:48 AM CDT [facility] PLATELETS 232 140 - 350 K/uL 02/15/2025 3:48 AM CDT [facility] MPV 10.5 9.3 - 12.4 fL 02/15/2025 3:48 AM CDT [facility] RDW 13.2 11.5 - 14.5 % 02/15/2025 3:48 AM CDT [facility] RDW-STDEV 44.8 37.1 - 48.7 fL 02/15/2025 3:48 AM CDT [facility] Blood Venipuncture / Unknown 02/15/2025 3:12 AM CDT 02/15/2025 3:31 AM CDT us Ninfa Ch MD HEMATOLOGY ORDERABLES Marla l Result [facility] CLIA# [id number] [address] [facility] [place] [address] * (ABNORMAL) COMPREHENSIVE METABOLIC PANEL (02/15/2025 3:12 AM CDT) SODIUM 141 136 - 145 mmol/L 02/15/2025 4:22 AM CDT [facility] POTASSIUM 3.5 3.5 - 5.0 mmol/L 02/15/2025 4:22 AM CDT [facility] CHLORIDE 105 98 - 107 mmol/L 02/15/2025 4:22 AM [facility] [employer] [facility] CO2 25 22 - 29 mmol/L 02/15/2025 4:22 AM [facility] CALCIUM 8.8 8.6 - 10.2 mg/dL 02/15/2025 4:22 AM [facility] [employer] [facility] BUN 10 8 - 23 mg/dL 02/15/2025 4:22 AM [facility] [employer] [facility] CREATININE 0.89 0.51 - 0.95 mg/dL 02/15/2025 4:22 AM [facility] Comment:The GFR result is no t clinically significant on patients <18 or >70 years of age. GLUCOSE 111(H) 74 - 99 mg/dL 02/15/2025 4:22 AM [facility] [facility] TOTAL PROTEIN 6.2(L) 6.7 - 8.6 g/dL 02/15/2025 4:22 AM [facility] ALBUMIN 3.7 3.5 - 5.2 g/dL 02/15/2025 4:22 AM [facility] [employer] [facility] BILIRUBIN TOTAL 0.6 0.2 - 1.1 mg/dL 02/15/2025 4:22 AM [facility] [employer] [facility] ALKALINE PHOSPHATASE 79 35 - 104 U/L 02/15/2025 4:22 AM [facility] [employer] [facility] AST 18 <33 U/L 02/15/2025 4:22 AM [facility] [employer] [facility] ALT 16 <34 U/L 02/15/2025 4:22 AM [facility] [employer] [facility] GFR >60 mL/min/1.7 3 sq meter 02/15/2025 4:22 AM [employer] [facility] Comment:eGFR calculated with 2020 CKD-EPI equation. Vegetarian diet, extremely high or low muscle mass, and may affect results. Cystatin C with Glomerular Filtration Rate is a suitable alternative for these patients. ANION GAP 11 8 - 16 mmol/L 02/15/2025 4:22 AM [facility] [employer] [facility] Blood Venipuncture / Unknown 02/15/2025 3:12 AM CDT 02/15/2025 3:31 AM CDT Narrative [facility] - 02/15/2025 4:22 AM CDT Samples containing indocyanine green cause interferences on Total and/or Direct Bilirubin and must not be measured. us Ninfa Ch MD CHEMISTRY ORDERABLES Final Result [facility] [employer] [facility] CLIA# [id number] [address] [place] [address] from Last [address] [place] [address] RX [employer] RX Member Subscriber Plan / Payer (Ef fective 2021-Present) Name:Yajaira Solo Relation to Subscriber:Self Name:Yajaira Solo Payer ID:Not on file Group ID:[id number] Type:RX Medicare Part D Address: [address] [place] [employer] Commercial [facility] [address] Advance Directives For more information, please contact: [phone] * Full Code (Latest Code Status on File) Date Activated Date Inactivated Comments 02/15/2025 2:46 AM 02/16/2025 3:45 PM Care Teams Director Of Assisted Living Relationship Specialty Start Date End Date Kendall Magana MD [address] [place] [address] PCP - General Internal Medicine 02/15/25
--- OUTSIDE RECORDS SUMMARY | 2025-04-02 14:34 | XMS_ITS | Clinical Summary ---
Author Organization [facility] Address [address] [facility] [place] [address] Care Team Providers Care Fashion Patternmaker Name Role Phone Zachary New MD Primary Care Provider [phone] Source Comments [facility],non-owned Affiliates and Associated Physician Practices is amultiple site organization consisting of ambulatory clinics and hospital sitesin [place], [place], [place] and [place]. This disclosure is being madepursuant to the Care Everywhere program and may not contain all information available regarding this patient. Last updated 18.[facility] Allergies No known active allergies Medications * Be aware that medications may not be up to date on this document. Alwaysverify current medications with the patient. 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
--- OUTSIDE RECORDS SUMMARY | 2025-04-02 14:34 | XMS_ITS | CONTINUITY OF CARE DOCUMENT ---
Author Name john lopez Address Unknown Organization [facility] Address [address] [place] [address] Phone [phone] Care Team Providers Care Molder Apprentice Name Role Phone Nora WHEELER, Gutierrez Unavailable DEYTO PA-C, DERREK Unavailable DEYTO PA-C, DERREK Unavailable PROBLEMS Condition Status Date Provider Notes Pre-procedural laboratory examination active Marco A Velasco RN Dyspnea on exertion active Wilmer Ahcelinezavianney Lower extremity edema active Wilmer Ahmedzai Leg pain, bilateral active Wilmer Monet Chest pain-type to be determined active Lakesha Garcia ONCOLOGY SPECIALIST Carotid bruits, bilateral active Joaquin Reynolds Diverticulosis, colon active Caesar Castro MD Venous stenoisis active Caesar Castro MD BACK PAIN;CHRONIC active Caesar Castro MD Goiter;nml tsh active Caesar Castro MD Vitamin D deficiency- on meds completed 14/07/14 - Caesar Castro MD Diastolic dysfunction active Caesar Castro MD lowest 40 Exposure to SARS-associated coronavirus;neg igg active Caesar Castro MD Atrial flutter;ablatted active Joaquin Reynolds Preoperative cardiovascular completed 2017 - Caesar Castro MD Chest pain completed - Caesar Castro MD CAD, calcium score 130 in 2020 active Gabriel Mesa Sustained ventricular tachycardia active Joaquin Reynolds SEIZURE disorder active Caesar Castro MD PVC's active Caesar Castro MD Abdominal bloating completed - Caesar Castro MD Screening completed - Gabriel Mesa Aortic atherosclerosis completed 4 - Gabriel Mesa Microvascular angina active Caesar Jansen IRON DEFICIENCY active Caesar Castro MD S/P [employer]aboratetronic (MRI Safe) REVEAL/LinQ completed - Caesar Castro MD RF ablation for SVT/AF;nml tsh active Caesar Castro MD Groin pain, right completed - Caesar Castro MD Pulmonary hypertension, secondary completed - Caesar Castro MD COPD active Caesar Castro MD Cardiomyopathy;no cad by cath completed 09/05/18 - Caesar Castro MD lowest ef 40 Vitamin D deficiency active Caesar Jansen ISCHEMIA; completed - Caesar Castro MD nml cor Dyspnea on exertion completed - Caesar Castro MD SLEEP APNEA; active Caesar Castro MD Edema;oconnell thurnre? completed - Caesar Castro MD Syncope active Joaquin Reynolds Obese active Caesar Castro MD Hypercholesterolemia active Charissa Ferguson lder HTN essential;neg dupelx active Caesar crowe MD FAMILY HISTORY OF HEART DISEASE active Caesar Castro MD Diabetes mellitus, borderline active Caesar Castro MD Tobacco dependence, continuous active Caesar Castro MD ENCOUNTERS Date Type Provider Location Encounter Diag nosis - In-person encounter Office Visit Gutierrez Melendez MD [facility] - In-person encounter Office Visit Gutierrez Melendez MD [facility] Leg pain, bilateralLower extremity edemaDyspnea on exertion - In-person encounter Office Visit Gutierrez Melendez MD [facility] Chest pain-type to be determined - In-person encounter Office Visit Gutierrez Melendez MD [facility] Atrial flutter;ablatted - In-person encounter Office Visit Gutierrez Melendez MD [facility] Sustained ventricular tachycardiaCarotid bruits, bilateral - In-person encounter Office Visit Buddy Galindo MD [facility] Aortic atherosclerosisScreeningCAD, calcium score 130 in 2019 - In-person encounter Office Visit Caesar Castro MD [facility] Edema;oconnell thurnre?S/P [employer] (MRI Safe) REVEAL/LinQAtrial flutter;ablattedVitamin D deficiency- on medsGoiter;nml tshBACK PAIN;CHRONICVenous stenoisisDiverticulosis, colon - In-person encounter Office Visit Ceasar Castro MD [facility] SyncopeCardiomyopathy;no cad by cathPulmonary hypertension, secondaryChest painPreoperative cardiovascularExposure to SARS-associated coronavirus;neg iggDiastolic dysfunction - In-person encounter Office Visit Gutierrez Melendez MD [facility] Atrial flutter;ablatted - In-person encounter Office Visit Gutierrez Melendez MD [facility] - In-person encounter Office Visit Caesar Castro MD [facility] PVC'sCAD, calcium score 130 in 2019 - In-person encounter Office Visit Caesar Castro MD [facility] Tobacco dependence, continuousISCHEMIA;Cardiomyop athy;no cad by cathRF ablation for SVT/AF;nml tshAbdominal bloatingSEIZURE disorder - In-person encounter Office Visit Caesar Castro MD [facility] Screening - In-person encounter Office Visit Buddy Galindo MD [facility] - In-person encounter Office Visit Caesar Castro MD [facility] COPDIRON DEFICIENCYMicrovascular angina - In-person encounter Office Visit Gloria Gonzales MD [facility] - In-person encounter Office Visit Caesar Castro MD [facility] Groin pain, right - In-person encounter Office Visit Caesar Castro MD [facility] Dyspnea on exertion - In-person encounter Office Visit Caesar Castro MD [facility] Oncology HTN essential;neg dupelxEdema;oconnell thurnre?ISCHEMIA;Vitamin D deficiencyCardiomyopathy;no cad by cath - In-person encounter Office Visit Caesar Castro MD [facility] - In-person encounter Office Visit Caesar Castro MD [facility] Tobacco dependence, continuousDiabetes mellitus, borderlineFAMILY HISTORY OF HEART DISEASEHTN essential;neg dupelxHypercholesterolemiaObe seEdema;oconnell thurnre?SLEEP APNEA; VITAL SIGNS Date Observation Value Provider Body Mass Index (Ratio) 30.45 kg/m2 Wilmer Monet blood pressure, diastolic 65 mm[Hg] Dc lulú [place] blood pressure, systolic 131 mm[Hg] [facility] manohar Vaughan oxygen saturation, oximetry 99 [...] /min Charissa marrero weight E&M 191 [lb_av] Charsisa Rochenfe lder height E&M 65 [in_i] Charissa [...] Body Mass Index (Ratio) 30.45 kg/m2 Dieter aCstro MD blood pressure, diastolic 80 mm[Hg] Da kingsley Ivette blood pressure, systolic 142 mm[Hg] Dac ia Ivette oxygen saturation, oximetry 97 % Chelsea Ivette respiratory rate E&M 16 /min Chelsea V oss pulse rate 70 /min Chelsea Ivette weight E&M 183 [lb_av] Chelsea Ivette height E&M 65 [in_i] Chelsea Ivette pulse rate #2 72 [place] blood pressure, ramírez tolic, second observation 86 mm[Hg] Zoraida Tebid blood pressure, syst olic, second observation 145 mm[Hg] Zoraida Tebid oxygen saturation, oximetry 98 % [facility] 72 /min [place] blood pressure, diastolic 86 mm[Hg] Vi ctoria Tebid blood pressure, systolic 145 mm[Hg] Randall jose Tebid pulse rate #2 75 [facility] blood pressure, ramírez tolic, second observation 80 mm[Hg] [facility], syst olic, second observation 136 mm[Hg] [facility], oximetry 98 % [facility] pulse rate 75 /min [facility] blood pressure, diastolic 80 mm[Hg] Vi ctoria Tebid blood pressure, systolic 136 mm[Hg] Randall jose Tebid pulse rate #2 80 [facility] blood pressure, ramírez tolic, second observation 79 mm[Hg] [facility], syst olic, second observation 141 mm[Hg] [facility], oximetry 98 % [facility] pulse rate 80 /min [facility] blood pressure, diastolic 79 mm[Hg] Vi ctoria Tebid blood pressure, systolic 141 mm[Hg] Randall jose Tebid pulse rate #2 68 [facility] blood pressure, ramírez tolic, second observation 78 mm[Hg] [facility] blood [facility], syst olic, second observation 129 mm[Hg] [facility], oximetry 98 % [facility] pulse rate 68 /min [facility] blood pressure, diastolic 78 mm[Hg] Vi ctoria Tebid blood pressure, systolic 129 mm[Hg] Randall jose Tebid pulse rate #2 85 [facility] blood [facility], ramírez tolic, second observation 88 mm[Hg] [facility] blood [facility], syst olic, second observation 123 mm[Hg] [facility] oxygen [facility], oximetry 98 % [facility] pulse rate 85 /min [facility] blood pressure, diastolic 88 mm[Hg] Vi ctoria Tebid blood pressure, systolic 123 mm[Hg] Randall jose Tebid pulse rate #2 69 [facility] blood pressure, ramírez tolic, second observation 86 mm[Hg] [facility] blood pressure, syst olic, second observation 124 mm[Hg] [facility] oxygen saturation, oximetry 98 % [facility] pulse rate 69 /min [facility] blood pressure, diastolic 86 mm[Hg] Vi [facility] Tebid blood pressure, systolic 124 mm[Hg] Randall jose Tebid pulse rate #2 75 [facility] blood pressure, ramírez tolic, second observation 79 mm[Hg] [facility] blood pressure, syst olic, second observation 129 mm[Hg] [facility] oxygen saturation, oximetry 98 % [facility] pulse rate 75 /min [facility] blood pressure, diastolic 79 mm[Hg] Vi ctoria Tebid blood pressure, systolic 129 mm[Hg] Randall mendezia Tebid pulse rate #2 76 [facility] blood pressure, ramírez tolic, second observation 85 mm[Hg] [facility] blood [facility], syst olic, second observation 122 mm[Hg] [facility] oxygen saturation, oximetry 98 % [facility] pulse rate 76 /min [facility] blood pressure, diastolic 85 mm[Hg] Vi [facility] Tebid blood pressure, systolic 122 mm[Hg] Randall [facility]2 75 [place] blood pressure, ramírez tolic, second observation 76 mm[Hg] [facility] blood pressure, syst olic, second observation 113 mm[Hg] [facility] oxygen saturation, oximetry 98 % [facility] pulse rate 75 /min [facility] blood pressure, diastolic 76 mm[Hg] Vi [facility] Ted blood pressure, systolic 113 mm[Hg] Randall [facility]2 77 [facility] blood pressure, ramírez tolic, second observation 86 mm[Hg] [facility] blood pressure, syst olic, second observation 139 mm[Hg] [facility] oxygen saturation, oximetry 98 % [facility] pulse rate 77 /min [facility] blood pressure, diastolic 86 mm[Hg] [facility], [facility] 139 mm[Hg] Randall [facility] #2 77 [facility] blood pressure, ramírez tolic, second observation 82 mm[Hg] [facility] blood pressure, syst olic, second observation 140 mm[Hg] [facility] oxygen [facility], oximetry 98 % [facility] pulse rate 77 /min [facility] blood pressure, diastolic 82 mm[Hg] [facility], systolic 140 mm[Hg] Randall jose bid pulse rate #2 76 [facility] blood pressure, ramírez tolic, second observation 82 mm[Hg] [facility] blood pressure, syst olic, second observation 138 mm[Hg] [facility] oxygen saturation, oximetry 98 % Zoraida Tebid pulse rate 76 /min [place] Tebid blood pressure, diastolic 82 mm[Hg] Vi ctoria Tebid blood pressure, systolic 138 mm[Hg] Randall jose Tebid pulse rate #2 71 [facility] blood [facility], ramírez tolic, second observation 84 mm[Hg] Zoraida Tebid blood pressure, syst olic, second observation 136 mm[Hg] [facility], oximetry 98 % [facility] pulse rate 71 /min [place] Tebid blood pressure, diastolic 84 mm[Hg] Vi deoria Tebid blood pressure, systolic 136 mm[Hg] Randall jose Tebid pulse rate #2 73 [facility] blood pressure, ramírez tolic, second observation 81 mm[Hg] [facility] blood pressure, syst olic, second observation 135 mm[Hg] [facility] oxygen [facility], oximetry 98 % [facility] pulse rate 73 /min [place] Tebid blood pressure, diastolic 81 mm[Hg] Vi [facility] Tebid blood pressure, systolic 135 mm[Hg] Randall mendezia Tebid pulse rate #2 74 [place] Tebid blood pressure, ramírez tolic, second observation 80 mm[Hg] [place] Tebid blood pressure, syst olic, second observation 151 mm[Hg] Zoraida Tebid oxygen saturation, oximetry 98 % [facility] pulse rate 74 /min [place] Tebid blood pressure, diastolic 80 mm[Hg] Vi deoria Tebid blood pressure, systolic 151 mm[Hg] Randall jose Tebid pulse rate #2 78 [facility] blood pressure, ramírez tolic, second observation 76 mm[Hg] [place] Tebid blood pressure, syst olic, second observation 142 mm[Hg] [facility], oximetry 98 % Zoraida d pulse rate 78 /min [place] d blood pressure, diastolic 76 mm[Hg] Vi ctoria Tebid blood pressure, systolic 142 mm[Hg] Randall jose Tebid pulse rate #2 67 [facility] blood pressure, ramírez tolic, second observation 82 mm[Hg] [facility] blood [facility], syst olic, second observation 136 mm[Hg] [facility] oxygen [facility], oximetry 98 % [place] pulse rate 67 /min [place] blood pressure, diastolic 82 mm[Hg] Vi ctoria Tebid blood pressure, systolic 136 mm[Hg] Randall jose Tebid pulse rate #2 71 [place] blood pressure, ramírez tolic, second observation 88 mm[Hg] [facility] blood [facility], syst olic, second observation 132 mm[Hg] Zoraida d oxygen saturation, oximetry 98 % [place] pulse rate 71 /min [place] blood pressure, diastolic 88 mm[Hg] Vi ctoria Tebid blood pressure, systolic 132 mm[Hg] Randall jose Tebid pulse rate #2 70 [place] blood pressure, ramírez tolic, second observation 86 mm[Hg] [facility] blood [facility], syst olic, second observation 136 mm[Hg] Zoraida d oxygen saturation, oximetry 98 % [place] pulse rate 70 /min [facility] blood pressure, diastolic 86 mm[Hg] Vi ctoria Tebid blood pressure, systolic 136 mm[Hg] Randall jose Tebid Body Mass Index (Ratio) 32.28 kg/m2 Dieter Castro MD pulse rate #2 75 [place] [facility] blood pressure, ramírez tolic, second observation 78 mm[Hg] [facility] blood pressure, syst olic, second observation 136 mm[Hg] [facility] oxygen saturation, oximetry 98 % [facility] pulse rate 75 /min [facility] blood pressure, diastolic 78 mm[Hg] Vi [facility] blood pressure, systolic 136 mm[Hg] Randall jose blood pressure, cuff size regular Ke rri Ericclaritaieshaselect medical [facility] blood pressure, diastolic 92 mm[Hg] Ke rri [facility] blood pressure, systolic 145 mm[Hg] Curtis elizabeth Rocheselect medical [facility] hospital[facility] oxygen saturation, oximetry 98 % Charissa Kashifnorth country hospitalmartina respiratory rate E&M 18 /min Charissa G nirmalnorth country hospitalmartina pulse rate 74 /min Charissa [facility] weight E&M 194 [lb_av] Char[facility] height E&M 65 [in_i] Charissa [facility] pulse rate #2 67 [place] blood pressure, ramírez tolic, second observation 91 mm[Hg] [facility] blood pressure, syst olic, second observation 140 mm[Hg] [facility] oxygen saturation, oximetry 98 % [facility] pulse rate 67 /min [facility] blood pressure, diastolic 91 mm[Hg] Vi ctoria d blood pressure, systolic 140 mm[Hg] Randall jose d pulse rate #2 76 [facility] blood pressure, ramírez tolic, second observation 87 mm[Hg] [facility] blood pressure, syst olic, second observation 132 mm[Hg] [facility], oximetry 98 % [facility] pulse rate 76 /min [facility] blood pressure, diastolic 87 mm[Hg] Vi ctoria Tebid blood pressure, systolic 132 mm[Hg] Randall jose Tebid pulse rate #2 72 [facility] blood pressure, ramírez tolic, second observation 104 mm[Hg] [facility] blood pressure, syst olic, second observation 164 mm[Hg] [facility] oxygen saturation, oximetry 98 % [facility] pulse rate 72 /min [facility] blood pressure, diastolic 104 mm[Hg] Vi ctoria Tebid blood pressure, systolic 164 mm[Hg] Randall jose Tebid pulse rate #2 75 [facility], ramírez tolic, second observation 95 mm[Hg] [facility] blood pressure, syst olic, second observation 151 mm[Hg] [facility] oxygen saturation, oximetry 98 % [facility] pulse rate 75 /min [facility] blood pressure, diastolic 95 mm[Hg] Vi ctoria Tebid blood pressure, systolic 151 mm[Hg] Randall jose Tebid pulse rate #2 82 [facility] blood pressure, ramírez tolic, second observation 90 mm[Hg] [facility] blood pressure, syst olic, second observation 142 mm[Hg] [facility] oxygen saturation, oximetry 98 % [facility] pulse rate 82 /min [facility] blood pressure, diastolic 90 mm[Hg] Vi ctoria Tebid blood pressure, systolic 142 mm[Hg] Randall jose Tebid pulse rate #2 77 [facility] blood pressure, ramírez tolic, second observation 85 mm[Hg] [facility] blood pressure, syst olic, second observation 145 mm[Hg] [facility] oxygen saturation, oximetry 98 % [place] pulse rate 77 /min [place] blood pressure, diastolic 85 mm[Hg] Vi ctoria Tebid blood pressure, systolic 145 mm[Hg] Randall jose Tebid pulse rate #2 76 [facility] blood pressure, ramírez tolic, second observation 80 mm[Hg] [facility] blood pressure, syst olic, second observation 160 mm[Hg] [facility] oxygen saturation, oximetry 98 % [facility] pulse rate 76 /min [facility] blood pressure, diastolic 80 mm[Hg] Vi ctoria Tebid blood pressure, systolic 160 mm[Hg] Randall jose Tebid pulse rate #2 69 [place] blood pressure, ramírez tolic, second observation 94 mm[Hg] [facility] blood [facility], syst olic, second observation 115 mm[Hg] [facility] oxygen saturation, oximetry 98 % [place] pulse rate 69 /min [facility] blood pressure, diastolic 94 mm[Hg] Vi ctoria Tebid blood pressure, systolic 115 mm[Hg] Randall jose Tebid pulse rate #2 74 [facility] blood pressure, ramírez tolic, second observation 92 mm[Hg] [facility] blood pressure, syst olic, second observation 144 mm[Hg] [facility] oxygen saturation, oximetry 98 % [facility] pulse rate 74 /min [facility] blood pressure, diastolic 92 mm[Hg] Vi ctoria Tebid blood pressure, systolic 144 mm[Hg] Randall jose Tebid pulse rate #2 73 [facility] blood pressure, ramírez tolic, second observation 84 mm[Hg] [facility] blood pressure, syst olic, second observation 137 mm[Hg] [facility] oxygen saturation, oximetry 98 % [facility] pulse rate 73 /min [facility] blood pressure, diastolic 84 mm[Hg] Vi lauren [facility] blood pressure, systolic 137 mm[Hg] Randall garcia [facility] Body Mass Index (Ratio) 32.45 kg/m2 Kristine [...] nguyen Henry blood pressure, systolic 120 mm[Hg] [place] nda Henry pulse rate 87 /min Ailyn [...] [employer] 3.5-5.2 sodium, serum 144 mmol/L [facility] [phone]/04 /22 urea nitrogen/creatinine ratio, serum 14 [employer] [...] Not Estab. platelet count 248 X10E3/UL [facility] 470-249 2504/04 /22 red blood cell distribution width 13.2 [...] Not Estab. platelet count 240 X10E3/UL [facility] 202-554 0828/01 /23 red blood cell distribution width 12.9 [...] [employer] 3.5-5.2 sodium, serum 144 mmol/L [facility] [phone]/01 /23 urea nitrogen/creatinine ratio, serum 9 [employer] [...] [employer] 3.5-5.2 sodium, serum 140 mmol/L [facility] 183-760 8538/01 /22 urea nitrogen/creatinine ratio, serum 9 [employer] [...] iron binding capacity, unsaturated 260 ug/dL [facility] 340-408 5674/08 /07 iron binding capacity, total 329 ug/dL [facility] 328-194 1073/08 /07 free thyroxine index 2.7 [facility] 1.2-4.9 [...] [employer] 0-149 cholesterol, serum 198 mg/dL [facility] [phone]/08 /07 calcium, serum 9.7 mg/dL [facility] 8.7-10.3 [...] Not Estab. platelet count 244 X10E3/UL [facility] 065-781 3902/08 /07 red blood cell distribution width 13.1 [...] [employer] 0-149 cholesterol, serum 179 mg/dL [facility] [phone]/12 /10 coagulation managed by Marco A Velasco [...] [employer] 3.5-5.2 sodium, serum 143 mmol/L [facility] [phone]/12 /08 urea nitrogen/creatinine ratio, serum 15 [employer] [...] Not Estab. platelet count 248 X10E3/UL [facility] 100-051 1874/12 /08 red blood cell distribution width 13.3 [...] (low-density lipoprotein/high-de nsity lipoprotein) ratio 1.4 RATIO [facility] - lipoprotein, beta, serum, point, quantitative, calculated 95.4 (?) [facility] 0.0 - 100.0 HDL cholesterol, serum 69.0 mg/dL [facility] 45.0 - 65.0 High cholesterol, serum 203.0 mg/dL [facility] 0.0 - 200.0 High triglyceride, serum, fasting 193.0 mg/dL [facility] 0.0 - 150.0 High lipase, serum 21.0 U/L [facility] 13.0 - 60.0 anion gap, serum 13.4 [facility] albumin/globulin ratio, serum 1.8 g/dL [employer] 1.1 - 2.5 globulin, serum 2.5 [facility] 2.3 - 3.8 urea nitrogen/creatinine ratio, serum 12.5 [facility] - Estimated Glomerular Filtration Rate (calc) 77.2 [...] - 1.2 urea nitrogen, blood 10.0 mg/dL [facility] 8.0 - 23.0 blood glucose, random 72.0 mg/dL [facility] 74.0 - 99.0 Low amylase, serum 48.0 1/L [facility] 28.0 - 100.0 red blood cell distribution width, size density 43.4 fL [facility] - immature granulocytes, percentage of total cells, blood 0.4 % [facility] - nucleated red blood cells as percent of blood leukocytes 0.0 % [facility] - red blood cell (erythrocyte) count, per high power field 0.0 10*3/UL [facility] - eosinophils as percent of blood leukocytes 0.7 % [facility] - neutrophils as percent of blood leukocytes 60.3 % [facility] - Absolute Neutrophils 5.9 CELLS/UL [employer] 1.5 - 7.8 basophils as percent of blood leukocytes 0.5 % [facility] - Absolute Basophils 0.1 CELLS/UL [facility] 0.0 - 0.2 monocytes as percent of blood leukocytes 10.9 % [facility] - Absolute Monocytes 1.1 CELLS/UL [facility] 0.2 - 1.0 High lymphocytes as percent of blood leukocytes 27.2 % [facility] Absolute Lymphocytes 2.7 CELLS/UL [facility] 0.9 - 3.9 mean platelet volume 11.8 (?) [facility] - platelet count 208.0 THOUSAND/UL [facility] 100.0 - 400.0 mean corpuscular hemoglobin concentration, RBC 32.2 G/DL [facility] 31.0 - 38.0 mean corpuscular hemoglobin, RBC 29.4 pg [facility] 25.0 - 35.0 mean corpuscular volume, RBC 91.4 fL [facility] 75.0 - 100.0 hematocrit, blood 51.0 % [facility] 35.0 - 55.0 hemoglobin, blood 16.4 g/dL [facility] 11.5 - 16.5 erythrocyte count, whole blood 5.6 MILLION/UL [facility] 3.5 - 5.5 High hemoglobin A1C, blood, as % of total hemoglobin 6.1 % [facility] 4.0 - 5.6 High folate, serum 6.0 NG/MLM [facility] 5.6 - 45.8 ferritin, serum 118.9 ng/mL [facility] 13.0 - 150.0 iron, serum 73.0 ug/dL [facility] 25.0 - 156.0 iron saturation percent, serum 20.8 % [facility] 20.0 - 50.0 iron binding capacity, total 351.4 ug/dL [facility] 250.0 - 450.0 rapid plasma reagin antibody, serum NON-REACTIV E [facility] NON-REACTIVE very low density lipoproteins 35.6 mg/dL [facility] 5.0 - 40.0 LDL/HDL (low-density lipoprotein/high-de nsity [...] - 150.0 urea nitrogen/creatinine ratio, serum 13.8 [facility] Estimated Glomerular Filtration Rate (calc) [...] cell distribution width, size density 49.1 fL [facility] - immature granulocytes, percentage of total cells, blood 0.4 % [facility] - nucleated red blood cells as percent of blood leukocytes 0.0 % [facility] - red blood cell (erythrocyte) count, per high power field 0.0 10*3/UL [facility] - eosinophils as percent of blood leukocytes 0.7 % [facility] - neutrophils as percent of blood leukocytes [...] 1 tablet by mouth once daily 11/11 [facility] PA Specialist valsartan 40 [...] a week 05/31 - 11/11 Lakesha Garcia ONCOLOGY SPECIALIST MAGNESIUM OXIDE 400 MG ORAL TABLET completed [...] 05/28 - 05/27 Charissa Blanc VITAMIN D3 91288 UNIT ORAL CAPSULE completed once a week [...] Marincelinezavianney smoking, date started 42 Kehinde Garcia ONCOLOGY SPECIALIST smoking/tobacco cess ation, patient education and counseling yes Adriana Thomas smoking history, tot al pack/day 0.5-1 Lakesha Hodgsonangela ONCOLOGY SPECIALIST cigarette use yes Adriana Graymere sewellon smoking [...] Date Observation Value Provider energy level [facility] energy level yes [place] Tebid energy level yes U[place]ana Tebid energy level yes Urbana Tebid energy level yes Urbana Tebid energy level yes Urbana Tebid energy level yes Urbana Tebid energy level yes Urbana Tebid energy level yes Urbana Tebid energy level yes Urbana Tebid energy level yes Urbana Tebid energy level yes Urbana Tebid energy level yes Urbana Tebid energy level yes Urbana Tebid energy level yes Urbana Tebid energy level yes Urbana Tebid energy level yes Urbana Tebid energy level yes Urbana Tebid energy level yes Urbana Tebid energy level yes Urbana Tebid energy level yes Urbana Tebid energy level yes Urbana Tebid energy level yes Urbana Tebid energy level yes Urbana Tebid energy level yes Urbana Tebid energy level yes Urbana Tebid energy level yes Urbana Tebid energy level yes Zoraida Tebid energy level yes Zoraida Tebid energy level no Zoraida Tebid FAMILY HISTORY Family Member Condition Father Family History of Di abetes: Mother Family History of Di abetes: INSURANCE PROVIDERS Payer name Policy type / Coverage type [place] red republican ID [employer] MED[employer]ARE [employer]AGE ST 0 003 (HMO POS) Medicare [id number] ADVANCE DIRECTIVES Name Date DISCUSSED - NO DECISION MADE TREATMENT PLAN Date Name Performer [id number],C, B P today: 131/65 P rior BP: 152/86 (03/26/2023) Labs Reviewed: C reat: 0.85 (02/13/2021) C hol: 198 (05/31/2020) HDL: 70 (05/31/2020) Wilmer Wallyalan [id number],S, Wilmer Sandra i [id number],C,C ardiac monitor showed S inus Rhythm with occasional Ventricular ectopics and rare Supraventricular e ctopics. The average heart rate was 70bpm with a maximum rate of 105bpm and a m inimum rate of 61bpm. VE?s were documented as triplets, couplets, bigeminal c ycles, and isolated beats with a burden of 2.26%. Wilmer kurtvianney [id number],C,p ending stress test w ill send in nitro for now as needed [facility] [id number],C,A BI was normal but sensilase showed decreased PVR with normal perfusion pressures b/l, this is c/w venous insufficiency. Wilmer celinei [id number],C,pending stres s nuclear Wilmer celinei [id number],C,W ill check stress nuclear to assess for ischemia and and PFT given her hx of smoking Wilmer kurtvianney [id number],C,p t has chest pain which is new for her and not improving, will check stress nuclear Wilmer Monet [id number],S,w ill check 48 hr holter to assess for arrythmias which may be contributing to her chest discomfort Wilmer Monet [id number],C,s he did suffer injury on leg which may be a contributor but has decreased pulses on left leg, will check TANG and Sensilase to assess arterial flow. Wilmer Monet [id number],C, B P today: 152/86 P rior BP: 127/79 (09/11/2022) Labs Reviewed: C reat: 0.85 (02/13/2021) C hol: 198 (05/31/2020) HDL: 70 (05/31/2020) Wilmer Monet [id number],C,e ncouraged to cut down by half until able to quit. pt verbalizes desire to quit smoking. Lakesha Garcia ONCOLOGY SPECIALIST [id number],C,? syncope or seizure as in HPI. will plan ILR. o n ashlee Garcia ONCOLOGY SPECIALIST [id number],C, B P today: 127/79 P rior BP: [...] tablet twice a day Lakesha Garcia NP [id number],C,s ustained VT seen on stress test 2020 [...] will plan for ILR Lakeshaliliana Reiddaniel SINGLETON [id number],C,recent telese ntry as above Lakesha Reiddaniel SINGLETON [id number],C, Pt reports that she a couple of [...] study with Non-inducible VT Lakesha Hodgsonangela SINGLETON [id number],C,p t had telesentry 08/25/22 Sinus Rhythm with [...] as couplets and isolated beats Lakeshajacqueline Garcia ONCOLOGY SPECIALIST [id number],C, pt states that over the last couple of weeks, she has been experiencing intermittent chest pressure, 6/10, unchanged with inspiration or movement, and not associated with any specific activity. occurs at rest and with exertion. radation to L arm and associated with nausea. will check rtroutine stress test and ECHO Lakesha Garcia ONCOLOGY SPECIALIST Electrophysiology: B P today: 131/65 P rior [...] verbalizes desire to quit smoking. Lakesha Garcia ONCOLOGY SPECIALIST Electrophysiology:? syncope or seizure as in HPI. will plan ILR. chino Garcia ONCOLOGY SPECIALIST Electrophysiology: B P today: 127/79 P rior [...] twice daily Orders: 9 12 Minor 10-19min (CPT-92807) [facility] Follow up : H er updated medication list for this problem includes: Coreg 25 Mg Oral Tablet (Carvedilol) ..... One tab. twice daily Orders: E KG (CPT-75377) M onitor - Telemetry (Mobile Cardiac) (CPT-31702) 9 12 Minor 10-19min (CPT-06328) [facility] Fo llow up : [...] : O rders: C arotid Duplex Bilateral (CPT-11907) [facility] Electrophysiology Fo llow up : S tress test During infusion had a few PVCs. However during the recovery phase this increased in frequency and in fact the patient had sustained VT,. Last monitor 05/2020 Interpretation: R hythm: Sinus Rhythm A vg. heart rate: 71 BPM M in. heart rate: 57 BPM M ax. heart rate: 77 BPM T otal VE: 5522 -- 5.4% [place] 5 015 Isolated 26 Pairs 1 22 Bigeminal 2 5 Trigeminal T otal SVE: 185 -- 0.1% [place] 1 85 Isolated Her updated medication list for this problem includes: Coreg 25 Mg Oral Tablet (Carvedilol) ..... One tab. twice daily Joaquin Reynolds Electrophysiology Fo llow up : s ustained VT seen on stress test yesterday. Orders: P ARTIAL THROMBOPLASTIN TIME, ACTIVATED (763) P ROTHROMBIN TIME WITH INR (8847) C BC (INCLUDES DIFF/PLT) (6399) B ASIC METABOLIC PANEL W/EGFR (84284) C T Cardiac with contrast (Pre-Ablation) (CPT-25191) A BLATION w/ Anesthesia (*) Stress 11/14/2020: [...] spital Follow up: O rders: E KG (CPT-23616) 9 9214 MOD Complex (CPT-54562) S chedule Followup (*) Her updated medication [...] successfully ablated. Orders: 9 9214 MOD Complex (CPT-64330) S chedule Followup (*) Her updated medication [...] Jean Electrophysiology: O rders: C omplete Echo (CPT-19967) 9 9214 MOD Complex (CPT-04543) S chedule Followup (*) Arvin Jean Electrophysiology: O rders: F VC - 58961 (73891) F RC - 60233 (04558) D LCO - 77390 (20277) 9 9214 MOD Complex (CPT-36601) S chedule Followup (*) Arvin Jean Electrophysiology: [...] Electrophysiology: O rders: 9 9214 MOD Complex (CPT-21622) S chedule Followup (*) Her updated medication [...] stress test. Orders: S TR - Adenosine (CPT-10121) 9 9214 MOD Complex (CPT-14967) S chedule Followup (*) Her updated medication [...] plan for EP study with ablation at [facility] on 10/06/18. Orders: E KG (CPT-72896) ABLATION w/ Anesthesia (*) 9 9214 MOD Complex (CPT-80061) S chedule Followup (*) Her updated medication [...] breath, fatigue, dizziness, nausea, or diaphoresis) of [place] [employer] Society Class III (defined as symptoms with everyday living activities, i.e. moderate limitation) or [place] [employer] Society Class IV (defined as inability [...] breath, fatigue, dizziness, nausea, or diaphoresis) of [place] [employer] Society Class III (defined as symptoms with everyday living activities, i.e. moderate limitation) or [place] [employer] Society Class IV (defined as inability [...] problem includes: Cartia Xt 120 Mg Oral Ha43k-jij (Diltiazem hcl coated beads) ..... One a [...] problem includes: Cartia Xt 120 Mg Oral Au23a-bgr (Diltiazem hcl coated beads) ..... One a [...] problem includes: Cartia Xt 120 Mg Oral Dw09a-zoz (Diltiazem hcl coated beads) ..... One a [...] tab daily Cartia Xt 120 Mg Oral Iw52r-yrw (Diltiazem hcl coated beads) ..... One a [...] tab daily Cartia Xt 120 Mg Oral Df93j-ubl (Diltiazem hcl coated beads) ..... One a day Caesar Castro MD Cardiology:NOT ON RX, NEEDS SPLI T STUDY Caesar Castro MD Cardiology: H er updated medication list for this problem includes: Lovastatin 20 Mg Tabs (Lovastatin) ..... One tab. daily Caesar Castro MD Cardiology:LEFT LEG ON LSY Dietermere karen Castro MD Cardiology Caesra Castro MD Cardiology:RECCURANT , HAD NEG BRAIN CT PER PT, CBC AND CMP NORMAL, BP MEDS RELATEED? WILL [facility] er updated medication list for this problem [...] Name Holter Monitor 48 hr DLCO - 66503 FRC - 48248 FVC - 60527 Stress Regadenoson Arterial Duplex Bi-L ower EX Arterial - SENSILASE Loop Rec Implant - S LHV CXR- PA/Lat Stress Routine Complete Echo DLCO - 79359 FRC - 37238 FVC - 64184 Carotid Duplex Bilat eral Monitor - Telemetry [...] PANEL Holter Monitor 24 Hr DLCO - 04463 FRC - 87207 FVC - [address] Thyroid Ultrasound Thyroid [...] D, 25-Hydrox y HEMOGLOBIN A1c DLCO - 24820 FRC - 57599 FVC - 85240 Covid Antibody Igg TSH, free T4, total T3 Holter Monitor 24 Hr Vitamin D, 25-Hydrox y HEMOGLOBIN A1c LIPID PANEL PARTIAL THROMBOPLAST IN TIME, ACTIVATED BASIC METABOLIC PANE L W/EGFR CBC (INCLUDES DIFF/P LT) ABLATION w/ Anesthes ia STR - Adenosine Complete Echo DLCO - 99597 FRC - 43275 FVC - 30737 DLCO - 42830 FRC - 72617 FVC - 20976 PROTHROMBIN TIME WIT H INR LIPID PANEL CBC (INCLUDES DIFF/P LT) BASIC METABOLIC PANE L W/EGFR Vitamin D, 25-Hydrox y CT, Coronary Calcium Score Complete Echo Low Dose Lung CT URINALYSIS, RANDOM, MICROALB/CREATININE HEMOGLOBIN A1c LIPID PANEL BASIC METABOLIC PANE L W/EGFR PROBNP, N TERMINAL DLCO - 49564 FRC - 97862 FVC - 04767 Vitamin D, 25-Hydrox y PROBNP, N TERMINAL BASIC METABOLIC PANE L W/EGFR LIPID PANEL URINALYSIS, RANDOM, MICROALB/CREATININE HEMOGLOBIN A1c BASIC METABOLIC PANE L W/EGFR Complete Echo Low Dose Lung CT CBC (INCLUDES DIFF/P LT) HEMOGLOBIN A1c CT Abdomen w/o contr ast LIPASE AMYLASE COMPREHENSIVE METABO LIC PANEL, W/EGFR CT Head w/o contrast LIPID PANEL PROBNP, N TERMINAL DLCO - 15899 FRC - 02986 FVC - 50051 Complete Echo DLCO - 56719 FRC - 59648 FVC - 17101 FOLATE, SERUM ECP - Medicare RPR (MONITOR) W/REFL TITER VITAMIN D, 25-HYDROX Y, LC/MS/MS Complete Echo IRON AND TOTAL IRON BINDING CAPACITY FERRITIN URINALYSIS, COMPLETE W/REFLEX TO CULTURE LIPID PANEL CBC (INCLUDES DIFF/P LT) DLCO - 85143 FRC - 86091 FVC - 44253 X-Ray, Chest, PA & L ateral PARTIAL [...] STR - Nuclear Complete Echo DLCO - 59462 FRC - 78269 FVC - 75832 HISTORY OF PROCEDURES Procedure Date Procedure Name [...] completed FVC / MVV with bronchodilator - 74760 Caesar Castro MD completed BLOOD COUNT HEMOGLOBIN Caesar Castro MD completed FRC - 51010 Caesar Castro MD complet ed SpO2 w/o 6min walk/titration Caesar Castro MD completed DLCO - 56223 Caesar Castor MD comple nedra CT- Coronary CA score [...] completed FVC / MVV with bronchodilator - 18719 Caesar Castro MD completed BLOOD COUNT HEMOGLOBIN Caesar Castro MD completed FRC - 68895 Caesar Castro MD complet ed SpO2 w/o 6min walk/titration Caesar Castro MD completed DLCO - 71572 Caesar Castro MD comple nedra Stress EKG [...] completed FVC / MVV with bronchodilator - 65840 Caesar Castro MD completed FRC - 49322 Caesar Castro MD complet ed SpO2 - 98190 Caesar Castro MD comple nedra DLCO - 07262 Caesar Castro MD comple nedra Loop Recorder [...] REMOTE </30 D TECH REVIEW completed SNOMED-CT: 013883070000217 Current Medications Documented Caesar Castro MD completed Loop Recorder Interrogation, Remote Caesar Castro MD INTERROGATION EVALUATION REMOTE </30 D ILR SYS completed ICM Interrogation, Remote (Tech) Caesar Castro MD INTERROGATION EVAL REMOTE </30 D TECH REVIEW completed SNOMED-CT: 53893749 Physical Exam, Performed: Pulse Exam of Foot Buddy Galindo MD completed SNOMED-CT: 386784538305910 Current Medications Documented Buddy Galindo MD completed Loop Recorder Interrogation, Remote Caesar Castro MD INTERROGATION EVALUATION REMOTE </30 D ILR SYS completed ICM Interrogation, Remote (Tech) Caesar Castro MD INTERROGATION EVAL REMOTE </30 D TECH REVIEW completed SNOMED-CT: 193184014972543 Current Medications Documented Caesar Castro MD completed Loop Recorder Interrogation, Remote Caesar Castro MD INTERROGATION EVALUATION REMOTE </30 D ILR SYS completed ICM Interrogation, Remote (Tech) Caesar Castro MD INTERROGATION EVAL REMOTE </30 D TECH REVIEW completed EKG Gloria Gonzales MD complet ed SNOMED-CT: 466244972291263 Current Medications Documented Gloria Gonzales MD completed Loop Recorder Interrogation, Remote Caesar Castro MD INTERROGATION EVALUATION REMOTE </30 D ILR SYS completed ICM Interrogation, Remote (Tech) Caesar Castro MD INTERROGATION EVAL REMOTE </30 D TECH REVIEW completed SNOMED-CT: 756589247249196 Current Medications Documented Caesar Castro MD completed SNOMED-CT: 415944913 Smoking Cessation Counseling Caesar Castro MD completed SNOMED-CT: 454871403057956 Current Medications Documented Caesar Castro MD completed SNOMED-CT: 212354374 Smoking Cessation Counseling Caesar Castro MD completed SNOMED-CT: 637714220953661 Current Medications Documented Caesar Castro MD completed BLOOD COUNT HEMOGLOBIN Caesar Castro MD completed FVC - 79837 Caesar Castro MD complet ed FRC - 91678 Caesar Castro MD complet ed DLCO - 83240 Caesar Catsro MD comple nedra Stress EKG Aldo Haney MD completed Regadenoson, 4 units Caesar Castro MD completed Cardiolite, 2 units Caesar Castro MD completed SPECT Images Buddy Galindo MD complet ed Event Monitor Caesar Castro MD compl eted Event Monitor Caesar Castro MD compl eted SNOMED-CT: 502264841 Smoking Cessation Counseling Caesar Castro MD completed SNOMED-CT: 124560107748547 Current Medications Documented Caesar Castro MD completed
== END 2025-04-02 13:17 | disposition home or self-care (01) ==
PROVIDERS: PCP Physician Assistant; Visit Provider Internal Medicine Hematology & Oncology
DX: I82.432 Acute embolism and thrombosis of left popliteal vein (principal); I82.462 Acute embolism and thrombosis of left calf muscular vein; I82.452 Acute embolism and thrombosis of left peroneal vein; I82.442 Acute embolism and thrombosis of left tibial vein; Z86.718 Personal history of other venous thrombosis and embolism
CPT/HCPCS: 93971

== ENCOUNTER 2025-04-05 09:13 | Outpatient (CLI) | payer MEDICARE, SELFPAY ==
--- NOTE | ~2025-04-05 | NM_ITS ---
EXAMINATION: NM pam stress w perfusion DATE: 04/05/2025 11:32 INDICATION: Heart disease TECHNIQUE: Rest images were obtained following intravenous administration of 10.2 mCi Tc99m tetrofosm in (Myoview). The patient was infused intravenously with Lexiscan (Regadenoson). Then, 34.1 mCi Tc99m tetrofosmin (Myoview) was administered intravenously, and stress images were obtained. Data was chel nstructed into short axis and horizontal and vertical long axis SPECT images. Gated SPECT images were also obtained. COMPARISON: None. FINDINGS: There is no definite reversible or fixed perfusion abnormality to suggest ischemia or infar ction. There is normal left ventricular chamber size, wall motion and ejection fraction. Left ventr icular ejection fraction measures 50%. IMPRESSION: 1. Normal myocardial perfusion at rest and during stress. 2. Left ventricular ejection fraction measuring 50%. Reviewed, dictated and finalized at location A.
--- NOTE | 2025-04-05 09:35 | EST_ITS ---
Patient Info Name: Yajaira Solo Age: 70 years : 1955 Gender: Female Ht: 65 in Wt: 181 lbs BSA: 1.97 m2 Exam Date: 04/05/2025 9:35 AM Patient Status: O Admit Date: 04/05/2025 Exam Type: CA stress pam w NM A regadenoson stress test was performed. Staff Referring Physician: Donald Laird DO Attending Provider: Donald Laird DO Exercise Technologist: Karine Yeager Exercise Physician: Donald Laird DO Summary 1. 1. Negative lexiscan stress test for ischemic ST changes by ECG criteria. 2. 2. Stable hemodynamics throughout the test. 3. 3. Nuclear scan to follow and will be reported separately. Please correlate with it. 4. 4. Patient informed of the above results. Protocol: Lexiscan Stress ECG Details Stage: REST Duration (min): 0 min : 43 sec HR (bpm): 57 SBP (mmHg): 114 DBP (mmHg): 65 Stage: REST Duration (min): 7 min : 29 sec HR (bpm): 58 SBP (mmHg): 114 DBP (mmHg): 65 Stage: STAGE 1 Duration (min): 0 min : 59 sec HR (bpm): 63 SBP (mmHg): 118 DBP (mmHg): 69 Stage: RECOVERY Duration (min): 1 min : 0 sec HR (bpm): 74 SBP (mmHg): 119 DBP (mmHg): 67 Stage: RECOVERY Duration (min): 2 min : 0 sec HR (bpm): 75 SBP (mmHg): 119 DBP (mmHg): 67 Stage: RECOVERY Duration (min): 3 min : 0 sec HR (bpm): 70 SBP (mmHg): 130 DBP (mmHg): 67 Stage: RECOVERY Duration (min): 3 min : 15 sec HR (bpm): 69 SBP (mmHg): 130 DBP (mmHg): 67 Rest HR: 58 bpm Peak HR: 77 bpm Rest Sys BP: 114 mmHg Peak Sys BP: 130 mmHg Max Pred HR: 149 bpm % Max Pred HR: 52 % Target HR: 127 bpm Max RPP: 10,010 bpm*mmHg Termination Reason: Completed protocol Cardiac Symptoms: Shortness of breath Total Time: 1 min : 0 sec Rest Bravo BP: 65 mmHg Peak Bravo BP: 67 mmHg Total Dose: 0.4 mg Resting ECG Sinus bradycardia, cannot r/o septal infarct, age indeterminate. Stress ECG No ST changes. Arrhythmias None. Report Signatures
--- OUTSIDE RECORDS SUMMARY | 2025-04-05 09:47 | XMS_ITS | Encounter Summary ---
Author Organization [facility] ([facility])[3] [employer] [facility] Address [address] [place] [address] Care Team Providers Care Product Support Consultant Name Role Phone Kendall Magana MD Primary Care Provider [phone] Encounter Details Date Type Department Care Team ( Contact Info) Description 04/03/[address] [facility] Oncology and Hematology - Luis Fernando [address] [place] [address] [place] [address] [place] [address] [employer] [address] [place] [address] Social History Tobacco Use Types Packs/Day Years Used Date Smoking Tobacco: Former Cigarettes 1 48.4 S tarted: 10/25/1976 Smokeless Tobacco: Never Alcohol Use Standard Drinks/Week Comments Yes 0 [...] on file Sexual Orientation Not on file documented as of this encounter Plan of Treatment Upcoming Encounters Date Type Department Care Team ( Contact Info) Description 04/09/2025 2:30 PM CDT Office Visit [facility] Oncology and Hematology - Luis Fernando [address] [place] [address] Johnathon Osei MD [address] [facility] [address] [place] [address] documented as of this encounter Procedures Procedure Name Priority Date/Time Associated Diagnosis Comments US VENOUS DOPPLER LEG LEFT Routine 04/02/2025 9:42 AM CDT documented in this encounter Results * US VENOUS DOPPLER LEG LEFT (04/02/2025 9:42 AM CDT) Anatomical Region Laterality Modality Lower Extremity Ultrasound us Johnathon Osei MD US ORDERABLES Final Result documented in this encounter Visit Diagnoses Not on filedocumented in this encounter Care Teams Product Support Consultant Relationship Specialty Start Date End Date Kendall Magana MD [address] [place] [address] PCP - General Internal Medicine 02/15/25 documented as of this encounter
--- OUTSIDE RECORDS SUMMARY | 2025-04-05 09:47 | XMS_ITS | Clinical Summary ---
Author Organization [facility] Address [address] [place] [address] Phone Care Team Providers Care City Controller Name Role Phone Nahed Ceballos Primary Care [...] times daily. 03/08/2019 Active ergocalciferol (VITAMIN D) 11021 UNIT Capsule Take 1 Cap by mouth [...] Insurance MEDICAID [employer] Care Teams City Controller Relationship Specialty Start Date End Date Nahed Ceballos PA [address] [address] PCP - General Adult Medicine 03/01/19
--- OUTSIDE RECORDS SUMMARY | 2025-04-05 09:47 | XMS_ITS | Data Portability ---
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 2016 noted on colonosc opy at distal descendi ng & sigmoid colon Nahed Ceballos PA-C Attn: Kelvin pratt,[address] [place], [address], [place] [facility] 7 14:51:28 Gastroes ophageal reflux disease without esophagi tis 472991488 Active 2016 Nahed Ceballos PA-C Attn: Kelvin pratt,[address] [facility], [place], [address], [facility] - [facility] 7 14:51:59 Osteonec rosis of hip 580202586 Active 2016 Nahed Ceballos PA-C Attn: Kelvin pratt,[address] [facility] [address], [place], [address], [place] [facility] 7 14:52:18 Malignan t tumor of breast 854346555 Completed 201611/23/2016 Nahed Ceballos PA-C Attn: Kelvin pratt,[address] [facility], [place], [address], [facility] - [facility] 7 14:52:35 Obstruct edu sleep apnea syndrome 98394199 Active 2016 mild, rec CPAP 8cm H2O Nahed Ceballos PA-C Attn: Kelvin pratt,[address] [facility], [place], [address], [facility] - [facility] 7 14:53:41 Osteopor osis 17709311 Active 2016 Nahed Ceballos PA-C Attn: Kelvin pratt,[address] [facility], [place], [address], [facility] - [facility] 7 11:22:30 Problem Notes None recorded. Procedures Surgical History Date Name Laterality Status Provider Name and Address Organization Details Recorded Time 10/06/20 18 percutaneous radiofrequency ablation of epicardium completed Nahed Ceballos PA-C Attn: Accounting,[address] [facility], [place], [address], [place] [facility] 10/19/2018 10:24:13 05/17/20 18 Nebulizer tx completed Nahed Ceballos PA-C Attn: Accounting,[address] [place], [address], [facility] - [facility] 05/18/2018 13:21:28 05/24/20 17 Most Recent Mammogram completed Ilene Llanes [place] - [place] 06/10/2017 11:41:47 05/10/20 17 Nebulizer tx completed Nahed Ceballos PA-C Attn: Accounting,[address] [facility], [place], [address], [facility] - [facility] 05/10/2017 15:52:58 11/24/19 17 Nebulizer tx completed Nahed Ceballos PA-C Attn: Accounting,[address] [facility] [address], [place], [address], [facility] - [facility] 11/24/2016 13:43:49 11/17/19 17 Nebulizer tx completed Nahed Ceballos PA-C Attn: Accounting,[address] [facility], [place], [address], [facility] - SI 11/17/2016 09:14:16 09/07/20 16 Nebulizer tx completed Nahed Ceballos PA-C Attn: Accounting,[address] [facility] [address], [place], [address], [facility] - SI 09/07/2016 09:57:51 07/05/20 16 Wrist Surgery completed Nahed Ceballos PA-C Attn: Accounting,[address] [facility] [address], [place], [address], [facility] - SI 10/19/2018 10:22:28 07/12/20 14 Colonoscopy completed Nahed Ceballos PA-C Attn: Accounting,[address] [facility], [place], [address], [facility] - SI 11/23/2016 14:49:32 Joint Replacement completed Nahed garcia PA-C Attn: Accounting,[address] [facility] [address], [place], [address], [facility] - [facility] 11/23/2016 14:55:02 Breast Surgery completed Dakota De Leon [facility] 09/04/2015 11:27:43 Mastectomy completed Joan Jose MA [facility] 09/04/2015 11:03:09 Appendectomy completed Dakota De Leon [facility] 09/04/2015 11:28:41 Imaging Results None recorded. Procedure [...] Available Not Available Not Available vitamin d 62397 unit caps active Not Available Not Available No t Available afluria pf 0219-3877 .5 ml raji active Not Available Not [...] e 50 mcg/actua tion nasal spray,trice pension Alden 1 spray every day by intranas al [...] Available Not Available No t Available Afluria 4501-1401 (PF) 45 mcg (15 mcg x 3)/0.5 mL IM syringe active Not Available Not Available Not Available Vitals Date Recorded Respiratory rate Systolic blood pressure Diastolic blood pressure Provider Name and Address Organization Details Last Updated DateTime 01/25/2025 18 /min 120 mm[Hg] 80 mm[Hg] ANA Wilson Attn: Accounting, [address] [place], [address], [facility] 01/25/2025 14:21:31 Date Recorded Body height Body mass index (BMI) Body weight Heart rate Oxygen saturation Oxygen saturation in Arterial blood by Pulse oximetry Systolic blood pressure Diastolic blood pressure Provider Name and Address Organization Details Last Updated DateTime 165.1 cm 30.6 kg/m2 11954.3 6 g 90 /min 91 % 91 % 132 mm[Hg] 90 mm[Hg] Lucius Perez MA [facility] 14:04:30 Date Recorded Respiratory rate Systolic blood pressure Diastolic blood pressure Provider Name and Address Organization Details Last Updated DateTime 02/19/2025 18 /min 130 mm[Hg] 80 mm[Hg] ANA Wilson Attn: Accounting, [address] [place], [address], [facility] 02/19/2025 12:54:12 Date Recorded Body height Body mass index (BMI) Body weight Oxygen saturation Oxygen saturation in Arterial blood by Pulse oximetry Heart rate Systolic blood pressure Diastolic blood pressure Provider Name and Address Organization Details Last Updated DateTime 5 165.1 cm 29.6 kg/m2 70585.4 4 g 97 % 97 % 70 /min 142 mm[Hg] 80 mm[Hg] Dax Bazan MA [facility] 12:22:43 Date Recorded Systolic blood pressure Diastolic blood pressure Provider Name and Address Organization Details Last Updated DateTime 03/05/2025 122 mm[Hg] 70 mm[Hg] ANA Wilson Attn: Accounting,[address] [place], [address], [facility] 03/05/2025 12:37:13 Date Recorded Body height Body mass index (BMI) Body weight Respiratory rate Oxygen saturation Oxygen saturation in Arterial blood by Pulse oximetry Heart rate Systolic blood pressure Diastolic blood pressure Provider Name and Address Organization Details Last Updated DateTime 5 165.1 cm 30 kg/m2 75122.6 3 g 18 /min 96 % 96 % 70 /min 138 mm[Hg] 72 mm[Hg] Dax Bazan MA [facility] 12:16:21 Date Recorded Systolic blood pressure Diastolic blood pressure Provider Name and Address Organization Details Last Updated DateTime 08/22/2024 140 mm[Hg] 90 mm[Hg] ANA Wilson Attn: Accounting,[address] [place], [address], [facility] 08/22/2024 09:44:02 Date Recorded Body height Respiratory rate Oxygen saturation Oxygen saturation in Arterial blood by Pulse oximetry Heart rate Systolic blood pressure Diastolic blood pressure Provider Name and Address Organization Details Last Updated DateTime 4 165.1 cm 18 /min 97 % 97 % 75 /min 150 mm[Hg] 82 mm[Hg] Dax Bazan MA [facility] 4 09:21:33 Date Recorded Systolic blood pressure Diastolic blood pressure Systolic blood pressure Diastolic blood pressure Provider Name and Address Organization Details Last Updated DateTime 09/25/2024 130 mm[Hg] 82 mm[Hg] 132 mm[Hg] 84 mm[Hg] ANA Wilson Attn: Accounting ,[address] , [place], [address] , [facility] 4 14:27:51 Date Recorded Body height Body mass index (BMI) Body weight Respiratory rate Oxygen saturation Oxygen saturation in Arterial blood by Pulse oximetry Heart rate Systolic blood pressure Diastolic blood pressure Provider Name and Address Organization Details Last Updated DateTime 4 165.1 cm 30.6 kg/m2 87616 g 18 /min 96 % 96 % 73 /min 160 mm[Hg] 82 mm[Hg] Dax Bazan MA [facility] 4 14:09:58 Social History Question Answer Notes LastModified by Organizat ion Details LastModified Time Tobacco Smoking Status Former Smoker quit in nov 2024 Lenore schwarz, [facility] 02/20/2025 12:16:05 Do You Have An Advance [...] High Blood Pressure Y Breast Cancer Y Thyroid Problems N Kidney or Bladder Problems N Lung Disease Y Depression N COPD Y Blood Clots N GI Problems Y Acne N Skin Problems Y Eating Disorder N Anemia Y Anesthesia Complications N Heart Attack (PA) N Headaches/Migraines N Anxiety Disorder N Diabetes [...] influenza, unspecified formulation 3 completed Not Available [facility] 03/05/2025 11:50:42 pneumococcal, unspecified formulation 3 completed Not Available [facility] 03/05/2025 11:50:42 COVID-19, mRNA, LNP-S, PF, 30 mcg/0.3 mL dose 1 completed Not Available [facility] 03/05/2025 11:50:42 COVID-19, mRNA, LNP-S, PF, 30 mcg/0.3 mL dose 1 completed Not Available [facility] 03/05/2025 11:50:42 pneumococcal polysaccharide PPV23 2 completed Joan Jose [place] null, [place] - [facility] 09/04/2015 11:03:09 Influenza, split virus, trivalent, preservative 5 completed [place] De [place], [place] [facility] 09/04/2015 11:30:14 Influenza, high-dose, trivalent, PF 4 completed ANA Wilson Attn: Accounting,[address] [place], [address], [place] [facility] 08/22/2024 10:28:48 Tdap 5 completed Not Available [facility] 11/11/2019 02:29:59 Past Encounters Encounter ID Performer Location Encounter Start Date Encounter Closed Date Diagnosis/Indication Diagnosis SNOMED-CT Code Diagnosis ICD10 Code Diagnosis Note [id number] Dakota De Leon MD [facility] (Adult Med) [address] [place] [address] 09/04/2015 10:33:47 09/04/2015 12:00:54 Essential hypertension 23762063 I10 Blood pressure well controlled . Continue same medication s. Low salt diet and regular exercise advised. Hyperlipidemia 71001572 E78.2 Continue Lovastatin Panic disorder 354334973 F41.0 Well controlled with Citalopram . History of malignant neoplasm of breast 382539307 Z85.3 B/L Mastecotmy and b/l breast implants. Vitamin D deficiency 347 13231 E55.9 Administra tion of diphtheria, pertussis, and tetanus vaccine 889168416 Z23 [id number] [facility] [address] [place] [address] 12/05/2015 13:47:42 12/06/2015 16:24:32 Essential hypertension 17867624 I10 Blood pressure well controlled . Continue same medication s. Low salt diet and regular exercise advised. Pain of oulder region 56055730 M25.511 X ray right shoulder. Refer to Physical therapy Hyperlipidemia 62495337 E78.2 LDL well controlled . Continue Lovastatin Vitamin D deficiency 347 07424 E55.9 Continue Vitamin D 50,000 units once weekly. Tired 652660276 R53.83 c/o tiredness. Check TSH. Hyperglycemia 03948449 R 73.9 Patient will do repeat fasting blood sugar and HBA1C. [id number] [facility] (Adult Med) [address] [place] [address] 09/07/2016 08:48:53 09/10/2016 16:17:03 Essential hypertension 20706403 I10 fair control with Cartia, did not take med this AM Hyperlipidemia 27631028 E78.5 recently evaluated by cardiology Hyperglycemia 00687208 R 73.9 Vitamin D deficiency 347 33010 E55.9 cont vit D supplement 50,000 iu weekly Pain of oulder region 34195742 M25.512 possible tendinitis s/p wrist fracture, follow up with ortho on 09/23 as scheduled Syncope and collapse 309 858526 R55 multiple episodes, negative cardiac cath. possible vasovagal w/ cough; possible TIA one year ago. Lesion of skin of face 2981674922 06 L98.9 cyst type lesion to center forehead by hair line s/p fall in March Chronic ob structive pulmonary disease 00640584 J44.9 J44.1 had PFT done & started on inhalers by cardiology . Not using albuterol, but increased symbicort instead [id number] [facility] (Adult Med) [address] [place] [address] 11/17/2016 08:10:08 11/17/2016 11:16:35 Syncope and collapse 887939999 R55 No syncopal episode since last visit. Cont to follow with cardiology with loop recordings . Recommend seeing neurology if cardiology workup is negative & pt continues to feel faint. Essential hypertension 17163702 I10 Did not take meds yet this AM. Generalize d osteoarthritis 640372662 M15.9 Cont to follow w/ ortho and physical therapy. Acute exac erbation of chronic obstructive pulmonary disease 079464284 J44.1 Improved aeration w/ albuterol nebulizer. Pt concerned w/ possible polyp in right nares. If not improvemen t with flonase, will refer to ENT. Iron defic iency anemia 13567283 D50.9 receiving iron infusions, last treatment tomorrow. Repeat CBC and iron levels in a few months. Need to sign med records release for Dr. Castro's office. Bone densi ty below reference range 298957367 R93.7 Will get Bone density results from [facility]. Has been over a year now since that study. [id number] [facility] (Adult Med) [address] [place] [address] 11/24/2016 11:44:13 11/24/2016 15:47:36 Acute exacerbation of chronic obstructive pulmonary disease 468680315 J44.1 persistent cough, discussed using symbicort only BID and ok to use albuterol Q4h PRN. Start medrol sameer for persistent coughing spasms, diminished air movement not improving w/ inhaled steroids. completed z-pack over the weekend Influenza vaccine needed 1097697644 106 Z23 hold for now due to illness, will give at f/u visit Osteoporosis 45936165 M8 1.0 of spine, discussed findings with patient. repeat bone density late Jun 2017. Talk w/ ortho and find out if ok to start fosomax after hardware is removed. Screening for malignant neoplasm of breast 738502808 Z12.31 [id number] [facility] (Adult Med) [address] [facility] [place] [address] 12/08/2016 13:50:36 12/08/2016 16:54:20 Chronic obstructive pulmonary disease 20901471 J44.9 J44.1 Improved, cont PRN mucinex & inhalers Onychomyco sis of toenails 118789655 B35.1 Rt great toe nail Pain in left foot 640698 2470 46989 M79.672 3rd toe radiating into lateral lower leg w/ weight bearing, see podiatry Syncope and collapse 309 050047 R55 No syncopal episode since last visit. loop recordings negative for cardiac cause of syncope. Recommend seeing neurology, reprinted referral contact info for patient Body mass index 30+ - obesity 551914823 Z68.39 patient encouraged to lose weight to help w/ back & joint pains. discussed core strengthen ing exercises. Osteoporosis 60767950 M8 1.0 of spine, recommend she talk w/ ortho and find out if ok to start fosomax after hardware is removed. Pain of sh oulder region 90830568 M25.512 rec'd injection, hasn't been able to see PT due to work schedule. Given AAOS shoulder conditioni ng exercises to start at home until she can see PT. [id number] [facility] (Adult Med) [address] [place] [address] 04/08/2017 10:02:22 04/12/2017 13:48:18 Screening for malignant neoplasm of breast 552359836 Z12.31 Abdominal pain 86849806 R10.9 dwp that abdominal sxs are concerning and not sure when CT abdomen ordered by cardioloog y will be approved, recommend she get abd x-ray to r/o partial SBO. Strongly encouraged her to see GI even w/o the CT abd results due. STOP ibuprofen use especially w/ history of severe reflux. Depressive disorder 9522 2775 F33.1 Pt counseled that bereavemen t depressive sxs are normal over her dog, increase citalopram for a short term while she is going through bereavemen t and mutliple health issues that are still being worked up. Osteonecrosis of hip 444 498786 M87.859 ortho evaluated & not a hardware problem but patient continues to have pain with walking. Will need to get records & CT of the hip from ortho, she was dx with bursitis and given steroid injection in October and completed PT, but pain persists. (Dr. Hedrick) Osteoporosis 48806678 M8 1.0 Ortho is ok wth her starting fosomax if needed. She cont to take calcium and vitamin D supplement s. Screening for malignant neoplasm of cervix 203569317 Z12.4 Administra tion of viral vaccine 81325993 Z23 [id number] [facility] (Adult Med) [address] [place] [address] 05/10/2017 15:19:26 05/10/2017 16:19:20 Chronic obstructive pulmonary disease 44633540 J44.1 restart symbicort, was controlled on that medication . improved aeration & rhonchi after nebulizer tx, slightly dizziness upon standing after tx. Syncope and collapse 309 635020 R55 No syncopal episode since last visit. loop recordings negative for cardiac cause of syncope. normal ECHO, mild diastolic dysfunctio n Obstructiv e sleep apnea syndrome 35976290 G47.33 Osteoporosis 56467296 M8 1.0 Ortho is ok wth her starting fosomax if needed. She cont to take calcium and vitamin D supplement s. Essential hypertension 22487712 I10 controlled after cardiology compressio n tx. cont current meds. Hyperglycemia 42773119 R 73.9 reviewed 02/2017 labs w/ patient, A1c is high 6.1% for non-diabet ic, she only eats one meal a day and denies eating sweets but she does like bread, chooses whole grain. Tobacco user 765821754 Z 72.0 patient again advised to quit smoking, has deferred any assistance . Body mass index 30+ - obesity 833605761 Z68.32 c/o difficulty losing weight, discussed increasing metabolism by eating more small meals a day rather than just one meal a day. cont to choose low fat, low sugar foods. [id number] MD Arnaldo Hua (POLICY CANCELLATION CLERK) [address] [place] [address] 06/10/2017 11:20:21 09/27/2017 16:27:33 Gynecologic examination 20086300 Z01.411 Last pap 1990. Pap done. Screening for malignant neoplasm of breast 526419196 Z12.31 UTD Screening for malignant neoplasm of colon 435698146 Z12.11 UTD Screening for malignant neoplasm of respiratory tract 596233839 Z12.2 Obesity 085233397 E66.9 Nutrition and exercise discussed. Smoker 39418882 F17.200 Cessation discussed. Pt. does not want to quit. See above for lung cancer screening. [id number] MD Arnaldo White (Adult Med) [address] [place] [address] 10/07/2017 10:51:50 10/11/2017 15:31:33 Rib pain 600680961 R07.81 right side, persistent now causing her to stop activities . Neg CT abdomen this past year Syncope and collapse 309 425912 R55 Syncope in Jun. Negative cardiac w/u. discussed likely vasovagal reaction. She deferred neurology evaluation at this time. Neg head CT. Spasm 02335483 R25.2 ribs/torso area. Essential hypertension 54657478 I10 controlled after cardiology compressio n tx. cont current meds. Cont to monitor BP at home. [id number] MD Arnaldo White (Adult Med) [address] [place] [address] 01/12/2018 11:31:25 01/12/2018 17:13:47 Dysuria-frequency syndrome 8631365 R30.0 sxs for past week, UA showed trace LE, recommend getting culture prior to considerin g antibiotic s Abdominal pain 69810518 R10.11 R10.31 R10.12 multiple locations progressiv camron getting worse, worrisome for diverticul itis w/ known diverticul osis on colonoscop y Syncope and collapse 309 766558 R55 Has had 3-4 syncopal episodes since last visit in September, usually preceded by cough. To see neurology January 25. Cardiology w/u negative. Complainin g of - melena 124261724 K92.1 check CBC, cont to monitor BMs. History of anemia - iron deficient 093264578 Z86.2 repeat labs w/ report of dark stools in recent weeks Body mass index 30+ - obesity 538038215 Z68.33 working on weight loss using Clarient. Neuropathy 756482268 G62 .9 c/o toes on both feet w/ mild numbness in last few months. h/o hyperglyce val, worried about DM Gastroesop hageal reflux disease without esophagitis 159124083 K21.9 cont PPI. may need repeat EGD/colono scopy if signs of anemia on labs w/ reported few episodes of dark stools. Diverticular disease [address] scan to r/o acute infection w/ diffuse tenderness on exam and worsening pain over the last several seeks. Essential hypertension 94566748 I10 controlled after cardiology compressio n tx. cont current meds. Cont to monitor BP at home. Hyperglycemia 57786637 R 73.9 last A1c 6.1%, doing [place] diet now. [id number] MD Arnaldo White (Adult Med) [address] [place] [address] 04/04/2018 08:17:16 04/04/2018 09:44:57 Syncope and collapse 211404164 R55 neurologis t dx her w/ seizures [...] Keppra Gastroesop hageal reflux disease without esophagitis 439593879 K21.9 cont PPI, add PRN ranitidine for breakthrou gh. discussed possible side effect of keppra causing increased nausea, acid production . Also discussed NSAIDs & fosomax causing same. Osteoporosis 00950794 M8 1.0 Cont fosomax for another year, repeat Bone density next year (2019). cont to take calcium and vitamin D supplement s. Essential hypertension 61625745 I10 Pt reports feeling less fatigued when she took break from her meds this past weekend. Discussed need to wean off medication s rather than stopping suddenly. Also need to make sure BP stays controlled prior to stopping any meds. She has f/u with cardiology in the next few weeks, will get labs at that time. [id number] MD Arnaldo White (Adult Med) [address] [place] [address] 05/17/2018 14:47:01 05/18/2018 17:22:18 Chronic obstructive pulmonary disease 49930264 J44.1 advised to decrease symbicort to just 2 puffs BID; decrease ventolin use, start nebulizer up to 4 times a day for current exacerbati on Pulmonary emphysema 8743 3001 J43.2 mild to moderate centrilobu lar noted on CT chest 04/2018. she has stopped smoking since study was done. Leakage of breast implant 958060737 T85.43XA Right breast implant intracapsu lar rupture noted on CT chest. h/o silicone implants done when she was 24yo. Tobacco de pendence in remission 474771301 F17.201 she has quit smoking, she can cont e-cig w/o nicotine PRN Essential hypertension 78833695 I10 restarted her meds, BP is better. still feels tired. she hasn't rec'd full results of her loop recorder yet and has ECHO scheduled in 2 weeks. She would like labs drawn in this clinic, she will call with labs ordered by cardiology Infection of tooth 17233 8007 K04.7 treat w/ abx prior to dental work to correct cracked tooth [id number] MD Arnaldo White (Adult Med) [address] [place] [address] 09/19/2018 11:37:59 09/19/2018 14:46:14 Osteoporosis 29649819 M81.0 Pharmacy had not refilled her fosamax, recommend she restart and we can repeat DEXA one year from now since she hasn't taken med since March. Ventricula r tachycardia 56554808 I47.2 Likely cause of her syncopal episodes, [...] ok for pain. Otalgia of right ear 181 4718436 660338 H92.01 restart flonase Essential hypertension 17766967 I10 elevated this AM, hasn't taken meds yet, usually better controlled since she had ECP treatments . She has f/u with cardiology in preparatio n for AICD/pacem do Seizure disorder 9039618 02 G40.909 still taking keppra, possibly related to V-tach Lumbago with sciatica 20 2214892 M54.42 we will revisit once she has had all her cardiology procedures done. Cont home stretches & exercises, Tylenol for pain. [id number] MD Genie Whitehalto (Adult Med) [address] [place] [address] 11/07/2018 11:45:37 11/07/2018 17:40:11 Essential hypertension 30184603 I10 Better today; no pacemaker placed. EP ablation done Gastroesop hageal reflux disease without esophagitis 434557488 K21.9 cont PPI, and PRN ranitidine for break-thro ugh. discussed possible side effect of keppra causing increased nausea, acid production . Also discussed NSAIDs & fosomax causing same. Vitamin D deficiency 347 04800 E55.9 Cardiology labs showed it was 29. Restart vit D supplement 50,000 iu weekly, recommend goal of 40 or greater w/ her hx of osteoporos is Low back pain 521144956 M54.[address] Higgins for ortho. If he is not able to evaluate or treat her low back, pt will call here for ortho spine referral. Ventricula r tachycardia 39642321 I47.2 s/p EP ablation, she has not been dizzy. But induced a. flutter only. Stopped coumadin; w/ APARICIO we can try reducing CCB to immediate relase 60mg BID dose and possibly wean off med if HR cont to be well controlled . Cont carvedilol . Cardiology f/u not until December or so. Reviewed labs & studies done by cardiology Lumbar radiculopathy [address] Higgins for ortho; radiating into left pelvic area; not sure if left 3rd & 4th toes are from low back. Needs further eval, will start w/ x-rays and see what ortho recommends . [id number] MD Arnaldo White (Adult Med) [address] [place] [address] 02/06/2019 10:53:19 02/07/2019 09:30:13 Ventricular tachycardia 92736625 I47.2 s/p EP ablation, she has not been dizzy since then until the past week. APARICIO also resolved. Essential hypertension 78764969 I10 Controlled ; no pacemaker placed. EP ablation done. Cont carvedilol , diltiazem, hctz Hyperlipidemia 87460585 E78.5 labs were good in Sep. LDL 97, cont statin Chronic ob structive pulmonary disease 20676994 J44.1 no recent exacerbati on; cont current inhalers, advised again to quit smoking Tobacco user 656367268 Z 72.0 patient again advised to quit smoking, has deferred any assistance . she will consider vaping w/ decreased nicotine. Dizziness 281527447 R42 Had greatly improved when she had cardiac ablation done. Current sxs possibly due to allergies, restart flonase. She had to reschedule f/u with neurology. Seasonal a llergic rhinitis 532773128 J30.2 restart flonase Pruritic disorder 280916 002 L29.9 to right ear, try few drops of witch vipul oil at bedtime to right ear. Spinal pankaj nosis of lumbar region 44259597 M48.061 Reviewed MRI results w/ pt. disc [...] gets benefit w/o sedating effects of THC. [id number] Kendall Magana MD [facility] [place] [address] [place] [address] 08/22/2024 08:53:10 08/22/2024 10:47:59 Obesity 111861578 E66.9 discussed healthy diet, exercise, controllin g carbohydra edinson and added sugars in the diet Body mass index measurement declined 0382603978 66693 Z53.20 Patient declined weight today Chronic ob structive pulmonary disease 49133552 J44.9 Patient is stable on Symbicort and albuterol therapy Benign ess ential hypertension 6949537 I10 Boost to valsartan 80mg daily. BP is elevated 140/90 today. Refill hydrochlor othiazide 12.5 mg daily Hyperlipidemia 91482627 E78.5 Restart lovastatin 20 mg daily and check fasting lipid panel Mixed anxi ety and depressive disorder 624659856 F41.8 Refill citalopram 40 mg daily. Patient is stable Seizure disorder 1813309 02 G40.909 Patient is taking Keppra and follows with Neurology. She is unsure of how long it has been since she has had seizures. Greater than 6 months but under 2 years since last episode Obstructiv e sleep apnea syndrome 63064880 G47.33 wearing cpap nightly per patient report. Long-term drug therapy 660064677 Z79.891 All labs are due Candidiasis of skin 4988 3006 B37.2 Start intensive nystatin cream topped with powder and fluconazol e treatment course and refer promptly to Dermatolog y for more in-depth management Prediabetes 785309181 R7 3.03 Refill metformin 500 mg daily and check updated insulin and A1c labs Acid reflux 048608458 K2 1.9 Restart omeprazole 40 mg daily for reflux management . She had ran out of the prescripti on refills History of polyp of colon 167043909 Z86.0100 Patient has a history of colon polyps and is due for follow-up procedure Administra tion of influenza vaccine 70657855 Z23 Flu shot given today Positive s creening for depression on PHQ-9 (Patient Health Questionnaire 9) 0541171974 39742 Z13.31 Patient scored a 6 on screening today. Her citalopram is managing her mental health without acute concerns [id number] Kendall Magana MD [facility] [place] [address] [place] [address] 09/25/2024 13:41:52 09/25/2024 14:56:56 Benign essential hypertension 4434589 I10 bp much better on repeat checks today. 130/80 range. valsartan 80mg daily and HCTZ 12.5mg daily. Prediabetes 878618818 R7 3.03 5.8% A1c. Continue metformin 500 mg daily Hyperlipidemia 69458700 E78.5 Continue lovastatin 20 mg daily. Labs are stable repeat again in February Chronic ob structive pulmonary disease 75401316 J44.9 Patient is stable on Symbicort and albuterol therapy Mixed anxi ety and depressive disorder 945002768 F41.8 citalopram 40 mg daily. Patient is stable Acid reflux 724554717 K2 1.9 omeprazole 40 mg daily for reflux management . Symptoms are under good control now that she has restarted PPI therapy Seizure disorder 8613640 02 G40.909 Patient is taking Keppra and follows with Neurology. She is unsure of how long it has been since she has had seizures. Greater than 6 months but under 2 years since last episode Obstructiv e sleep apnea syndrome 81897503 G47.33 wearing cpap nightly per patient report. Obesity 349251940 E66.9 discussed healthy diet, exercise, controllin g carbohydra edinson and added sugars in the diet Long-term drug therapy 062557855 Z79.891 Next set of lab orders given for February History of polyp of colon 638292810 Z86.0100 Patient has a history of colon polyps and is due for follow-up procedure new referral given for [facility]logy because her insurance is not being accepted at [facility] any longer Dizziness 707680363 R42 Proceed with MRI of the brain with and without contrast for increasing ly progressiv e dizziness that is causing imbalance and difficulty staying steady at times. 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 Specifical ly to the [facility] in [place] History of fracture 3910 87135 Z87.81 hx of left traumatic foot fracture from metal frame approx 60 pounds that that directly fell on top of the left foot and fractured bones, and 6 months of walking boot. still in pain constant. [id number] Kendall Magana MD [facility] [address] [place] [address] 02/19/2025 12:02:57 02/19/2025 16:29:07 Overweight in adulthood with body mass index of 25 or more but less than 30 689365923 E66.3 Z68.29 discussed healthy diet, exercise, controllin g carbohydra edinson and added sugars in the diet Pulmonary embolism 64995 [address] I26.[address] for evaluation into coagulopat hy workup. For now patient is taking Eliquis 2.5 mg twice daily Acute deep vein thrombosis of lower limb 9408627925 08 I82.492 Treatment as above Ex-smoker 4156165 Z87.89 1 quite smoking in November after extensive hx of tobacco use. [id number] Kendall Magana MD [facility] [place] [address] [place] [address] 03/05/2025 11:49:47 03/05/2025 12:42:42 Left ventricular systolic dysfunction 348690595 I51.89 25-35% ejection fraction. Patient is following up formally within the next 2 weeks with Cardiology . They will decide treatment options for her which may include starting something like Entresto Diastolic dysfunction 35 41063 I51.89 also noted on echo Right vent ricular systolic dysfunction 389576319 I51.89 Reviewed on echo Left atria l hypertrophy 340966879 I51.7 Noted Pulmonary embolism 46513 003 I26.99 seeing hematology on wednesday. For now patient is taking Eliquis 2.5 mg twice daily Acute deep vein thrombosis of lower limb 3079173519 08 I82.492 Treatment as above Ex-smoker 4324152 Z87.89 1 quite smoking in November after extensive hx of tobacco use. Obese class I 7898204714 65571 E66.811 discussed healthy diet, exercise, controllin g carbohydra edinson and added sugars in the diet Health Concerns Section Related Observation LastModified by Organization Detai ls LastModified Time None Recorded Concern Status LastModified by Organization Details LastModified Time None Recorded Advance Directives Directive N: Payers Insurance Date Sequence Insurance Name Policy Number Policy Thomas Covered Member ID Thomas Member ID Guarantor Name 03/30/2025 1 [facility] (MEDICARE REPLACEMENT/AD VANTAGE - HMO) [id number] Yajaira Solo [id number] Yajaira Salguerorendt 08/22/2024 1 [place]: [facility] OF PUBLIC AID Yajaira Salguerorendt [id number] Gates Behrendt 08/22/[address] [facility] - DOS PRIOR TO 20 (HMO) Gates Behrendt [id number] Gates Behrendt 08/22/2024 1 [facility] (MEDICAID HMO) Gates Behrendt [id number] Gates Behrendt 08/22/2024 1 [facility] - DOS PRIOR TO 2021 (MEDICAID REPLACEMENT - HMO) Gatse Behrendt [id number] Gates Behrendt Notes Date Note Type Note Provider Name and Address Organization Details Recorded Time 08/22/20 24 text/htm l Patient takes Keppra 500 mg twice daily for history of seizure disorder. She follows with Neurology and is stable. Dr. Vasquez is her neurologist. She has been seizure-free for: She is unsure. ANA Wilson Attn: Accounting,[address], [place], [address], [facility] 08/22/2024 10:29:27 08/22/20 24 text/htm l Anxiety/DepressionReported [...] mg daily. ANA Wilson Attn: Accounting,[address], [place], [address], [facility] 08/22/2024 10:29:27 09/25/20 24 text/htm l Anxiety/DepressionReported [...] is unsure. ANA Wilson Attn: Accounting[address] [place], [address], [facility] 09/25/2024 14:46:01 01/26/20 25 text/htm l FootReported [...] pain. she wants a referral to see aviation survival technician. 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 she wants to stay local for aviation survival technician. Dr. Baldwin is stating she needs more treatment, but patient states he is the doctor for work comp. ANA Wilson Attn: Accounting[address] [place], [address], [facility] 02/18/2025 14:11:53 02/20/20 25 text/htm l Patient [...] quit smoking. ANA Wilson Attn: Accounting,[address] [facility], [place], [address], [facility] 03/04/2025 21:46:03 03/05/20 25 text/htm l Patient presents today because she wants to go over her echocardiogram that the guest service manager ordered. Recent HPI: acute DVT of the left lower extremity and bilateral pulmonary embolisms throughout. She is anticoagulated. She is feeling fine, she does feel that shortness of breath has improved since she has been on blood thinner. She is presenting for follow-up. She recently has also quit smoking. ANA Wilson Attn: Accounting,[address] [facility] [facility], [place], [address], [facility] 03/22/2025 22:42:14 OBGyn Episode No OBEpisode recorded.
--- OUTSIDE RECORDS SUMMARY | 2025-04-05 09:47 | XMS_ITS | Referral Summary ---
Author Organization [facility] Address [address] [place] [address] Care Team Providers Care Service Desk Lead Name Role Phone Brenda Bowie Primary Care Pr ovider Gutierrez Melendez MD Unavailable [phone] Encounters Date Type Department Care Team Description 03/05/2025 Telephone [facility] Gastro[facility]ology at [place] [address] [facility] [address] [place] [phone] April Urrutia Prep Instructions 02/23/2025 7:06 AM CDT - 02/23/2025 11:59 PM CDT Hospital Encounter [facility] [address] [place] [address] Encounter for screening mammogram for malignant neoplasm [...] (01/17/2021): Added automatically from request for surgery [id number] Sustained ventricular tachycardia 11/18/2020 Overview (11/18/2020): Added automatically from request for surgery [id number] Pain in wrist 12/21/2016 Closed fracture of [...] on file Legal Sex Female 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[employer] Gender Identity Not on file Sexual Orientation [...] Description 04/16/2025 10:00 AM CDT Hospital Encounter [address] [address] Tye Muir DO [address] [facility] [address] [place] [address] [place] [address] 04/16/2025 10:00 AM CDT - 04/16/2025 10:30 AM CDT Surgery [address] [address] Tye Muir DO [address] [facility] [address] [place] [address] [place] [address] COLONOSCOPY Scheduled Procedures Name Priority Associated Diagnoses [...] 3 Months Insurance [employer] MEDICARE PPO [address] [place]CR HMO REF [facility] MEDICARE ADVANTAGE Care Teams Service Desk Lead Relationship Specialty Start Date End Date Brenda Bowie PA PCP - General 06/12/20 Gutierrez Melendez MD [address] [place] [address] Consulting Physician Cardiology 02/20/21
--- OUTSIDE RECORDS SUMMARY | 2025-04-05 09:47 | XMS_ITS | Data Portability ---
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 Hopefully that will [...] more than half the time spent in fuzz-bz-arfc care. Not available 07/30/2023 09:36:56 08/27/2023 08/27/2023 [...] more than half the time spent in pbai-jg-mzsc care. Not available 09/06/2023 15:41:25 01/03/2024 01/03/2024 [...] 023 [email or web address] Not available 3 17:12:09 Referral multi media specialist referral 2022 023 [email or web address] Niki Rivera MD, [address] [facility] , [address], [place], [address], 4 08:58:22 gynecologis t referral - no referral required 2022 023 [email or web address] 4 Arturo Handy MD, [address], [place], [address], 3 14:27:33 Procedures colonoscopy procedure (PROC) - no referral required 2022 023 [email or web address] Mark Irizarry MD, [address], [address], [place], [address], 4 10:21:15 Surgeries None recorded. Imaging XR, foot 2023 024 [facility] [place], [address], [place], [address], 4 18:27:48 XR, foot 2022 023 [email or web address] [facility] [place], [address], [place], [address], 3 16:04:53 XR, foot 2022 023 [facility] [place], [address], [place], [address], 3 10:07:11 MAMMO, screening, digital, bilateral 2022 023 [email or web address] Not available 4 10:21:20 LDCT, chest, for lung cancer screening - no auth required 2022 023 DUC Not available 3 10:32:55 Medication Orders nystatin 100,000 unit/gram topical cream 2022 023 [facility] [address] [place], [address], 3 11:01:24 triamcinolo ne acetonide 0.1 % topical cream 2022 023 [facility] [address] [place], [address], 3 11:01:27 doxycycline hyclate 100 mg tablet [address] [facility] [address] [place], [address], 3 08:55:18 prednisone 20 mg tablet [address] [facility] [address] [facility] [address] [place], [address], 3 08:55:27 ergocalcife rol (vitamin D2) 1,250 mcg (50,000 unit) capsule 2022 023 [facility] [address] [place], [address], 3 11:01:27 Patient TargetsNo targets recorded. Patient Instructions Encounter Date Encounter Id Patient Instructions Last Modified By Organization Details Last Modified Time 07/19/2023 [id number] dementia rating scale-2* Not available 07/19/2023 11:11:55 multi-dimensiona health assessment questionnaire* [email or web address] Not available 07/19/2023 11:12:00 care plan* [email or web address] Not available 11:11:51 advance directiv es: care instructions Not available 07/19/2023 11:01:17 advance care planning: care instructions Not available 07/19/2023 11:01:17 [place] Advance Directives Not available 07/19/2023 11:01:17 Personalized [...] Ordered Cervical/Uterine/Ov maged Cancer Screening: Referral to director business development Osteoporosis Screening: Your next DEXA in: 2024 Date Screening Last Performed: Colon Cancer Screening: Colonoscopy In: january 2022 Date Screening Last Performed: Eye Disease Screening: Recommended today Dementia Risk: Low Depression Screening: Positive Active diagnosis, Continue current treatment plan Not available 07/20/2023 14:20:00 Reason for Referral Hris Coordinator Referral for Po stmenopausal bleeding no referral required Referring Physician: Brenda Bowie, Internal Medicine, Encounter Date: 07/19/2023 Toe Sewer 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 Referring Physician: Brenda Bowie, Internal Medicine, Encounter Date: 09/02/2023 Results Created Date Observation Date Name Description Value Unit Range Abnormal Flag Note LastModifiedBy Organization Detail LastModifiedTime 06/23/20 23 XR, knee No observ ation record ed. [email or web address] [facility] [place] [address], [place], [address], 06/23/2023 09:02:56 07/02/20 XR, foot No observ ation record ed. [facility] [place] [address], [address], 07/05/2023 14:33:19 07/30/20 XR, foot No observ ation record ed. [facility] [place] [address], [address], 07/30/2023 09:38:31 08/06/2008/06/2023 LDCT, chest , for lung cance r maranda spears No observ ation record ed. [place] [facility] [address], [place], [address], 09/02/2023 11:51:49 08/06/2008/06/2023 MAMMO , maranda spears, digit al, bilat eral No observ ation record ed. Not Available 2022 11:51:53 08/24/2008/24/2023 US, liver No observ ation record ed. [facility] [address] [place], [address], 09/02/2023 15:46:10 08/27/20 XR, foot No observ ation record ed. [facility] [place] [address], [address], 09/06/2023 15:42:20 01/03/20 24 XR, foot No observ ation record ed. [facility] [place] [address], [address], 01/03/2024 16:49:52 Result Notes None recorded. 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 783098994 Active 2022 Not Available [facility] 3 16:25:57 Pruritic rash 67941274 Active 2022 Not Available [facility] 3 16:25:58 Pain in left foot 61133548292 9107 Active 2022 Not Available [facility] 3 16:25:57 Vitamin D deficienc y 16880374 Active 2022 Not Available [facility] 3 16:25:57 Osteoporo sis 05788674 Active 2022 Not Available [facility] 3 16:25:58 Closed fracture of metatarsa l bone 19184896 Active 2022 Not Available [facility] 3 16:25:57 Closed fracture of metatarsa l bone 42068868 Active 2022 Jen Rider CMA null, [place] [facility] [place] [employer] [facility] 3 11:57:41 Osteoarth ritis of right knee joint 13253938760 9100 Active 2022 ZEINAB Garcia, [place] [facility] [place] [facility] 3 08:32:21 Smoker 53756076 Active 2022 ANA Wilson [address], [address], [place], [address] , [facility] 3 10:56:02 Postmenop ausal bleeding 29448072 Active 2022 ANA Wilson [address], [address], [place], [address] , [facility] [employer] [facility] 3 10:58:21 Acute dermatiti s 58617758 Active 2022 ANA Wilson [address], [address], [place], [address] , [facility] [facility] 3 10:59:16 Liver enzymes level above reference range 021722696 Active 2022 ANA Wilson [address], [address], [place], [address] , [facility] 3 13:37:43 Ground glass opacity Active 2022 ANA Wilson [address], [address], [place], [address] , [facility] 3 11:53:16 Steatotic liver disease 812999595 Active 2022 ANA Wilson [address], [address], [place], [address] , [facility] 3 11:55:36 Generaliz ed abdominal pain 660647147 Active 2021 Not Available [facility] 3 16:25:57 Disorder of shoulder 528393818 Active Not Available [facility] 3 16:25:57 Benign essential hypertens ion 4013837 Active 2021 Not Available [facility] 3 16:25:57 Fracture of bone 350742730 Active Not Available [facility] 3 16:25:57 Disorder of trunk 835850404 Active Not Available [facility] 3 16:25:57 Seizure disorder 208957602 Active 2021 Not Available [facility] 3 16:25:57 Hyperchol esterolem ia 48511685 Active 2016 Not Available [facility] 3 16:25:57 Chronic obstructi ve pulmonary disease 18066409 Active 2021 Not Available [facility] 3 16:25:57 Pain of right shoulder joint 77701567479 880028 Active 2021 Not Available [facility] 3 16:25:57 Pain of joint of wrist 925980892 Active Not Available [facility] 3 16:25:57 Partial thickness rotator cuff tear 596952807 Active Not Available [facility] 3 16:25:57 Osteoarth ritis of joint of hand 10035341 Active Not Available [facility] 3 16:25:57 Gastroeso phageal reflux disease 182180399 Active 2019 Not Available [facility] 3 16:25:57 Osteoarth ritis of hip 997429253 Active Not Available [facility] 3 16:25:57 Osteoarth ritis of knee 203023018 Active Not Available [facility] 3 16:25:57 Shoulder joint pain 088841858 Active Not Available [facility] 3 16:25:57 Syncope 495766957 Active 2021 Not Available [facility] 3 16:25:57 Family history of malignant neoplasm 906109478 Active 2016 Not Available [facility] 3 16:25:57 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 89168736 Active Not Available [facility] 3 16:25:57 Tear of medial meniscus of knee 542581047 Active 2021 Not Available [facility] 3 16:25:57 Pain in pelvis 94007113 Active 2021 Not Available [facility] 3 16:25:57 Enthesopa thy of hip region 10445110 Active Not Available [facility] 3 16:25:57 Pain of left hip joint 41571325073 9100 Active 2021 Not Available [facility] 3 16:25:57 Depressiv e disorder 78510832 Active 2021 Not Available [facility] 3 16:25:57 Hypertens edu disorder 36333735 Active 2016 Not Available [facility] 3 16:25:57 Osteoarth ritis 817138500 Active Not Available [facility] 3 16:25:57 Periphera l vascular disease 747124310 Active 2021 Not Available [facility] 3 16:25:58 Hypothyro idism 32539477 Active 2021 Not Available [facility] 3 16:25:58 Hypokalem ia 04808449 Active 2021 Not Available [facility] 3 16:25:58 Tubular adenomato us polyp of colon 056326725 Active 2021 colonosco py done 12/17/21- she had a >1 cm tubular adenoma at the distal ascending colon that was referred to [facility] Not Available [facility] 3 16:25:58 Pain of right knee joint 31231026507 4100 Active 2021 Not Available [facility] 3 16:25:58 Pain of hip region 56698373 Active Not Available [facility] 3 16:25:58 Candidias is of skin 52321178 Active 2021 Not Available [facility] 3 16:25:58 Hyperlipi demia 60390935 Active 2021 Not Available [facility] 3 16:25:58 Candidias is of mouth 28072565 Active 2021 Not Available [facility] 3 16:25:58 Impaired glucose tolerance 8413717 Active 2021 Not Available [facility] 3 16:25:58 Notes:Some problems listed i n Document: #[id number] could not be added to this patient's chart. Please review this document and add these problems to the patient's chart manually as needed. Problem Notes None recorded. Procedures Surgical History Date Name Laterality Status Provider Name and Address Organization Details Recorded Time 07/19/20 23 Medicare Wellness CPT Code, subsequent completed RADHA Jones [facility] 07/19/2023 10:27:11 04/09/20 23 Most Recent Bone Density completed ZEINAB Bhardwaj [facility] 07/16/2023 12:11:34 08/14/20 22 Date of Last Mammogram completed ZEINAB Bhardwaj [facility] 07/16/2023 12:11:41 02/07/20 22 Date of Last Colonoscopy completed Not Available [facility] 12/23/2022 04:42:07 10/25/19 15 Total hip arthroplasty completed Not Available [facility] 12/23/2022 04:42:13 10/25/19 13 Total hip arthroplasty completed Not Available [facility] 12/23/2022 04:42:13 Ablation completed Not Available [facility] 04:42:13 Imaging Results None recorded. Procedure Notes [...] for injection in office 07/[address] [facility]: 0003- 0494- 20 Not Available Not Available [...] red by the provider 02/[address] [facility]: 0409- 4276- 17 Not Available Not Available [...] injection solution in office 09/[address] [facility] [id number] -064- 01 Not Available Not Available Not [...] Updated DateTime 01/03/2024 160.02 cm ZEINAB Garcia [facility] 01/03/2024 14:20:57 Date Recorded Body height Body mass index (BMI) Body weight Body temperature Heart rate Oxygen saturation Oxygen saturation in Arterial blood by Pulse oximetry Systolic blood pressure Diastolic blood pressure Provider Name and Address Organization Details Last Updated DateTime 160.02 cm 31.9 kg/m2 20850.6 3 g 98.1 [degF] 83 /min 97 % 97 % 132 mm[Hg] 80 mm[Hg] April Kaplan RN [facility] [employer] [facility] 3 10:33:49 Date Recorded Body height Provider Name an d Address Organization Details Last Updated DateTime 07/30/2023 160.02 cm Gayla Leal [facility] 07/30/2023 08:51:36 Date Recorded Body height Provider Name an d Address Organization Details Last Updated DateTime 08/27/2023 160.02 cm Gayla Leal [facility] 08/27/2023 08:55:04 Date Recorded Body height Body temperature Body mass index (BMI) Body weight Heart rate Respiratory rate Oxygen saturation Oxygen saturation in Arterial blood by Pulse oximetry Systolic blood pressure Diastolic blood pressure Provider Name and Address Organization Details Last Updated DateTime 3 160.02 cm 97.2 [degF] 33 kg/m2 17248.9 8 g 64 /min 16 /min 93 % 93 % 130 mm[Hg] 80 mm[Hg] [facility] [employer] [facility] 3 11:28:59 Social History Question Answer Notes LastModified by Organizat ion Details LastModified Time Tobacco Smoking Status Current Every Day Smoker Not Available [facility] 12/23/2022 04:06:30 Do You Have An Advance Directive? Yes MIGRATION.04547 69149 Information not available 12/23/2022 Are You Blind Or Do You Have Difficulty Seeing? Yes MIGRATION. 07067 Information not available 12/23/2022 What Is Your Level Of Caffeine Consumption? Occasional MIGRATION.83883 20825 Information not available 12/23/2022 How Much Tobacco Do You Chew? None MIGRATION.77401 48928 Information not available 12/23/2022 In The 14 Days Before Symptom Onset, Have You Had Close Contact With A Laboratory-confir med COVID-19 While That Case Was Ill? No MIGRATION.94762 07762 Information not available 12/23/2022 In The 14 Days Before Symptom Onset, Have You Had Close Contact With A Person Who Is Under Investigation For COVID-19 While That Person Was Ill? No MIGRATION.71365 10575 Information not available 12/23/2022 Are You Deaf Or Do You Have Serious Difficulty Hearing? Yes MIGRATION.27528 08851 Information not available 12/23/2022 What Type Of Diet Are You Following? REGULAR MIGRATION.72693 41343 Information not available 12/23/2022 Which Illicit Or Recreational Drugs Have You Used? None MIGRATION.14825 37517 Information not available 12/23/2022 Have There Been Any Changes To Your Family Or Social Situation? No MIGRATION.36765 00157 Information not available 12/23/2022 Are There Any Guns Present In Your Home? No MIGRATION.23685 80282 Information not available 12/23/2022 Do You Use Insect Repellent Routinely? No MIGRATION.95656 27571 Information not available 12/23/2022 Presence Of Domestic Violence No [email or web address] Information no t available 07/19/2023 Are You Able To Care For Yourself? Yes [email or web address] Information not available 07/19/2023 Are You Blind Or Do Yo Have Difficulty Seeing? Yes Reading Glasses [email or web address] Information not available 07/19/2023 Are You Deaf Or Do You Have Serious Difficulty Hearing? No [email or web address] Information not available 07/19/2023 General Stress Level? Moderate [email or web address] Information not available 07/19/2023 Live Alone Of With Others? Alone [email or web address] Information not available 07/19/2023 Do You Have A Medical Power Of Retrieval Specialist? Yes Good Friend, Gayla Ruiz MIGRATION.40120 81579 Information not available 12/23/2022 What Was The Date Of Your Most Recent Tobacco Screening? 03/05/2021 MIGRATION.19336 60063 Information not available 12/23/2022 Do You Have Any Pets? Yes MIGRATION.38832 37089 Information not available 12/23/2022 What Is Your Relationship Status? Single MIGRATION.28499 21912 Information not available 12/23/2022 Do You Use Your Seat Belt Or Car Seat Routinely? Yes MIGRATION.14398 33614 Information not available 12/23/2022 Do You Have Smoke And Carbon Monoxide Detectors In Your Home? Yes MIGRATION.35090 34210 Information not available 12/23/2022 At What Age Did You Start Smoking Tobacco? 24 MIGRATION.81936 76309 Information not available 12/23/2022 Are You Passively Exposed To Smoke? Yes MIGRATION.28295 53842 Information not available 12/23/2022 Are There Any Smokers In Your House? Yes MIGRATION.34506 45393 Information not available 12/23/2022 How Much Tobacco Do You Smoke? 1 PPW MIGRATION.89894 40000 Information not available 12/23/2022 Do You Use Sunscreen Routinely? Yes MIGRATION.40757 71223 Information not available 12/23/2022 How Many Years Have You Smoked Tobacco? 25 MIGRATION.02850 22220 Information not available 12/23/2022 Have You Recently Traveled Abroad? No MIGRATION.37593 56165 Information not available 12/23/2022 Do You Have Difficulty Walking Or Climbing Stairs? Yes MIGRATION.08646 12018 Information not available 12/23/2022 Do You Have Any Dietary Restrictions? No MIGRATION.88693 10159 Information not available 12/23/2022 Sex: Female Functional Status Question Answer Note LastModified by Trusperizat ion Details LastModified Time Do you use any illicit or recreational drugs? No MIGRATION.408660 2232 Information not available 12/23/2022 Do you or have you ever used any other forms of tobacco or nicotine? No MIGRATION.515183 3199 Information not available 12/23/2022 What is your level of alcohol consumption? None MIGRATION.719318 5347 Information not available 12/23/2022 Do you or have you ever used smokeless tobacco? Never used smokeless tobacco MIGRATION.634799 5435 Information not available 12/23/2022 Do you have transportation difficulties? Yes MIGRATION.586886 2692 Information not available 12/23/2022 Are you able to walk? YESASSIST [id number] Information not available 07/19/2023 Do you have difficulty doing errands alone? No MIGRATION.104781 2049 Information not available 12/23/2022 Are you able to care for yourself? Yes MIGRATION.307601 2387 Information not available 12/23/2022 Do you have difficulty dressing or bathing? No MIGRATION.948127 1860 Information not available 12/23/2022 Do you or have you ever used e-cigarettes or vape? Never used electronic cigarettes MIGRATION.828037 9271 Information not available 12/23/2022 What is your exercise level? None MIGRATION.924152 9347 Information not available 12/23/2022 Mental Status Question Answer Note LastModified by Organizat ion Details LastModified Time Do you have difficulty concentrating, remembering or making decisions? No MIGRATION.337861856 6 Information not available 12/23/2022 Family History Relationship Description Onset Age of this Age Resolved Age Notes LastModified by Organization Details LastModified Time Father Heart disease MIGRATION.270 [id number] Not available 12/23/2022 04:42:14 Father Hypertensive disorder MIGRATION.392 9033201 Not available 12/23/2022 04:42:14 Father Diabetes mellitus MIGRATION.844 5973157 Not available 12/23/2022 04:42:14 Mother Heart disease MIGRATION.169 4269273 Not available 12/23/2022 04:42:14 Mother Family history of malignant neoplasm MIGRATION.567 1950885 Not available 12/23/2022 04:42:14 Mother Diabetes mellitus MIGRATION.926 5890582 Not available 12/23/2022 04:42:14 Medical History Condition [...] quadrivalent, PF 0 completed Not Available [facility] 05/03/2023 16:25:58 Pneumococcal conjugate PCV 13 0 completed Not Available [facility] 05/03/2023 16:25:58 Past Encounters Encounter ID Performer Location Encounter Start Date Encounter Closed Date Diagnosis/Indication Diagnosis SNOMED-CT Code Diagnosis ICD10 Code Diagnosis Note [id number] Ran Carney MD [facility] [address] [place] [address] 02/05/2021 00:00:00 02/10/2021 12:15:37 [id number] Ran Carney MD [facility] [address] [place] [address] 02/27/2021 00:00:00 03/02/2021 16:07:23 [id number] Ran Carney MD [facility] [place] [address] [place] [address] 03/05/2021 00:00:00 03/15/2021 22:29:08 [id number] [facility] [place] [address] [place] [address] 03/17/2021 00:00:00 03/21/2021 18:02:04 [id number] Ran Carney MD [facility] [place] [address] [place] [address] 04/16/2021 00:00:00 04/16/2021 10:28:54 [id number] ANA Wilson S_[facility] [place] [address] [place] [address] 06/23/2021 00:00:00 06/23/2021 22:41:56 [id number] ANA [facility] [place] [address] [place] [address] 09/08/2021 00:00:00 09/23/2021 18:26:16 [id number] Ran Carney MD [facility] [place] [address] [place] [address] 01/14/2022 00:00:00 02/01/2022 17:50:53 [id number] Ran Carney MD [facility] [place] [address] [place] [address] 02/04/2022 00:00:00 02/04/2022 09:06:32 [id number] Ran Carney MD [facility] [place] [address] [place] [address] 02/20/2022 00:00:00 02/20/2022 09:19:09 [id number] Ran Carney MD [facility] [place] [address] [place] [address] 03/13/2022 00:00:00 03/13/2022 09:18:53 [id number] Kendall Magana MD [facility] [place] [address] [place] [address] 06/15/2022 00:00:00 06/21/2022 10:43:56 [id number] Ran Carney MD [facility] [place] [address] [place] [address] 09/25/2022 00:00:00 09/25/2022 10:14:07 [id number] Ran Carney MD [facility] [place] [address] [place] [address] 11/13/2022 00:00:00 11/22/2022 13:34:26 [id number] Ran Carney MD [facility] [place] [address] [place] [address] 12/11/2022 00:00:00 12/11/2022 09:22:01 [id number] Ran Carney MD [facility] [place] [address] [place] [address] 01/22/2023 10:02:11 01/25/2023 09:58:48 Partial thickness rotator cuff tear [id number] M75.101 Neck pain 85557833 M54.2 Ulnar nerv e entrapment at elbow 309400855 G56.21 [id number] ANA Wilson [facility] [place] [address] [place] [address] 02/10/2023 13:59:07 02/10/2023 14:36:32 Pruritic rash 60240184 L28.2 Rx for steroid cream and nystatin as well to utilize both for different rashes. groin with jud that needs antifungal tx. steroid cream for buttock region. Hypothyroidism 03284116 E03.9 due for TFTs. not on supplement therapy. Hyperlipidemia 01959137 E78.5 on statin therapy, due for fasting lipids Impaired g lucose tolerance 5952442 R73.03 a1c due w/IGT hx Long-term drug therapy 237675901 Z79.899 all routine bmp, lft and CBC labs due History of polyp of colon 342079795 Z86.010 due for colonoscop y f/u screening [id number] Ran Carney MD [facility] [place] [address] [place] [address] 02/24/2023 08:28:05 02/24/2023 10:01:39 Pain in left foot [id number] 14712 M79.672 [id number] Ran Carney MD [facility] [place] [address] [place] [address] 03/03/2023 08:28:43 03/03/2023 09:08:55 Pain in left foot [id number] 25972 M79.672 [id number] Ran Carney MD [facility] [place] [address] [place] [address] 2023 08:45:18 2023 09:31:50 Pain in left foot [id number] 49334 M79.672 [id number] Ran Carney MD [facility] [place] [address] [place] [address] 04/02/2023 08:46:25 04/02/2023 09:14:02 Pain in left foot [id number] 77553 M79.672 [id number] Ran Carney MD [facility] [place] [address] [place] [address] 04/21/2023 08:32:44 04/23/2023 14:32:27 Closed fracture of metatarsal bone 06628342 S92.315D [id number] Ran Carney MD [facility] [place] [address] [place] [address] 05/14/2023 08:47:32 05/14/2023 10:06:58 Closed fracture of metatarsal bone 68904586 S92.315D [id number] Ran Carney MD [facility] [place] [address] [place] [address] 06/04/2023 08:42:16 06/04/2023 12:28:24 Closed fracture of metatarsal bone 56643071 S92.315D [id number] Ran Carney MD [facility] [place] [address] [place] [address] 06/23/2023 08:24:05 06/23/2023 09:07:56 Osteoarthritis of right knee joint 5843211202 60624 M17.11 [id number] Ran Carney MD [facility] [place] [address] [place] [address] 07/02/2023 08:48:50 07/05/2023 15:12:23 Closed fracture of metatarsal bone 33319839 S92.315D [id number] ANA Wilson [facility] [place] [address] [place] [address] 07/19/2023 10:26:00 07/19/2023 11:22:00 Adult health examination 153406802 Z00.00 mawe completed /routine f/u completed Screening for disorder 478050338 Z13.9 Hypothyroidism 81500416 E03.9 due for TFTs. not on supplement therapy. Hyperlipidemia 25556050 E78.5 on statin therapy, due for fasting lipids Impaired g lucose tolerance 5922812 R73.03 a1c due w/IGT hx Long-term drug therapy 835495517 Z79.899 all routine bmp, lft and CBC labs due History of polyp of colon 616331508 Z86.010 Still due for 1 year f/u colonoscop y screening that is past due. ordered again Screening mammography 24 855945 Z12.31 mammogram due in jul. Smoker 97291133 F17.200 LDCT scan ordered Osteoporosis 19358459 M8 1.0 UTD on dexa 2022 Vitamin D deficiency 347 90165 E55.9 refill vitamin D that was very low on ortho screening. Postmenopa usal bleeding 30796683 N95.0 refer to gyne promptly as she had occult PMB. Acute dermatitis 1001059 6 L30.9 Rx for steroid cream, prednisone taper, antifungal cream and doxy 100mg bid course to treat different derm rashes and lesions present on exam today. [id number] Ran Carney MD [facility] [place] [address] [place] [address] 07/30/2023 08:47:25 07/30/2023 09:53:07 Closed fracture of metatarsal bone 82744723 S92.315D [id number] Ran Carney MD [facility] [place] [address] [place] [address] 08/27/2023 08:52:42 09/06/2023 16:04:53 Closed fracture of metatarsal bone 81963426 S92.315D [id number] ANA Wilson [facility] [place] [address] [place] [address] 09/02/2023 11:22:54 09/02/2023 12:02:11 Ground glass opacity 7659652137 R91.8 refer to Pulmonary for f/u on ground glass opacity on LDCT Steatotic liver disease 937458566 K76.0 f/u LFT panel ordered to evaluate for any improvemen t in LFT with dietary changes. AST was 60 on oct labs. [id number] Ran Carney MD [facility] [place] [address] [facility] [address] [place] [address] 01/03/2024 14:15:36 01/03/2024 17:01:29 Closed fracture of metatarsal bone 88922884 S92.315D Health Concerns Section Related Observation LastModified by Organization Detai ls LastModified Time None Recorded Concern Status LastModified by Organization Details LastModified Time None Recorded Advance Directives Directive Y: Payers Insurance Date Sequence Insurance Name Policy Number Policy Thomas Covered Member ID Thomas Member ID Guarantor Name 03/23/2023 [employer] [facility] Yajaira Solo 01/03/2024 1 [facility] (MEDICARE REPLACEMENT/ ADVANTAGE - HMO) [id number] Yajaira Solo [id number] Yajaira Solo Notes Date Note Type Note [...] your bucket for review. ANA Wilson [address] [place] [address] [address], [place], [address], [facility] [employer] 07/20/2023 14:20:32 08/27/20 text/htm l patient returns. [...] aggravate the situation. Ran Carney MD [address] [address], [place], [address], [facility] [employer] [facility] 09/06/2023 15:42:37 09/02/20 23 text/htm l Generic [...] up is recommended on that. ANA Wilson [address] [address], [place], [address], [facility] [employer] [facility] 09/22/2023 23:02:08 01/03/20 24 text/htm l patient [...] near anatomic alignment. Ran Carney MD [address] [place] [address], [place], [address], [facility] [employer] [facility] 01/03/2024 16:56:42 OBGyn Episode No OBEpisode recorded.
--- OUTSIDE RECORDS SUMMARY | 2025-04-05 09:47 | XMS_ITS | Clinical Summary ---
Author Organization [facility] Address [address] [place] [address] Care Team Providers Care Worm Picker Name Role Phone Brenda Bowie Primary Care Pr ovider Gutierrez Melendez MD Unavailable [phone] Allergies No known active allergies Medications valsartan [...] (01/17/2021): Added automatically from request for surgery [id number] Sustained ventricular tachycardia 11/18/2020 Overview (11/18/2020): Added automatically from request for surgery [id number] Pain in wrist 12/21/2016 Closed fracture of distal end of radius 09/24/20 16 Encounters Date Type Department Care Team Description 03/05/2025 Telephone [facility] [place] [address] [facility] [address] [place] [address] April Urrutia Prep Instructions 02/23/2025 7:06 AM CDT - 02/23/2025 11:59 PM CDT Hospital Encounter 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 Gender Identity Not on file Sexual Orientation [...] Description 04/16/2025 10:00 AM CDT Hospital Encounter [address] [address] Tye Muir DO [address] [facility] [address] [place] [address] 04/16/2025 10:00 AM CDT - 04/16/2025 10:30 AM CDT Surgery [facility] [address] [place] [address] Tye Muir DO [address] [facility] [address] [place] [id number] COLONOSCOPY Scheduled Procedures Name Priority Associated Diagnoses [...] Payer ID:[id number] (NAIC) Type:MEDICARE RISK OTHER Address: [address] [employer] HMO REF [employer] MEDICARE ADVANTAGE Care Teams Worm Picker Relationship Specialty Start Date End Date Brenda Bowie PA PCP - General 06/12/20 Gutierrez Melendez MD [address] [place] [address] Consulting Physician Cardiology 02/20/21
--- OUTSIDE RECORDS SUMMARY | 2025-04-05 09:48 | XMS_ITS | Clinical Summary ---
Author Organization [facility] Address [address] [facility] [place] [address] Care Team Providers Care Color Control Operator Name Role Phone Zachary New MD Primary Care Provider [phone] Source Comments [facility],non-owned Affiliates and Associated Physician Practices is amultiple site organization consisting of ambulatory clinics and hospital sitesin [place], [place], [place] and [place]. This disclosure is being madepursuant to the Care Everywhere program and may not contain all information available regarding this patient. Last updated 18.[facility] [employer] Allergies No known active allergies Medications * Be aware that medications may not be up to date on this document. Alwaysverify current medications with the patient. 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
--- OUTSIDE RECORDS SUMMARY | 2025-04-05 09:48 | XMS_ITS | Clinical Summary ---
Author Organization [facility] Address [address] [place] [phone] Phone Care Team Providers Care Hotel Concierge Name Role Phone Kendall Magana MD Primary Care Provider [phone] Allergies No known active allergies Medications budesonide-form [...] Encounters Date Type Department Care Team Description 04/03/2025 Orders Only [facility] Oncology and Hematology [facility] [address] [place] [address] Johnathon Osei MD 03/20/2025 External Device Data STL ABSTRACTION Provider, Abstract 03/20/2025 External Device Data STL ABSTRACTION Provider, Abstract 03/20/2025 External Device Data STL ABSTRACTION Provider, Abstract 03/14/2025 External Device Data STL ABSTRACTION Provider, Abstract 03/13/2025 External Device Data STL ABSTRACTION Provider, Abstract 03/09/2025 2:30 PM CDT Office Visit [facility] Oncology and Hematology [facility] [address] [place] [address] Johnathon Osei MD Acute deep vein thrombosis (DVT) of proximal vein of left lower extremity (CMS/HCC) (Primary Dx) 02/20/2025 External Device Data STL ABSTRACTION Provider, Abstract 02/20/2025 External Device Data STL ABSTRACTION Provider, Abstract 02/20/2025 External Device Data STL ABSTRACTION Provider, Abstract 02/15/2025 12:59 AM CDT - 02/16/2025 12:45 PM CDT Hospital Encounter [facility] [address] [place] [address] Aquiles Sanchez MD Weitzel, Laura Jean, MD [...] Description 04/09/2025 2:30 PM CDT Office Visit [facility] Oncology and Hematology - Luis Fernando [address] [facility] [address] [place] [address] Johnathon Osei MD [address] [facility] [address] [place] [address] Health Maintenance Due Date Last [...] LEG LEFT Routine 04/02/2025 9:42 AM CDT POC GLUCOSE Routine 02/16/2025 8:13 AM CDT [...] CDT from Last 3 Months Results * US VENOUS DOPPLER LEG LEFT (04/02/2025 9:42 AM CDT) Anatomical Region Laterality Modality Lower Extremity Ultrasound Johnathon Osei MD US ORDERABLES Final Result * (ABNORMAL) POC GLUCOSE (02/16/2025 8:13 AM CDT) Only the most recent of9 resultswithin the time period is included. GLUCOSE POC 113(H) 74 - 99 mg/dL 02/16/2025 8:13 AM CDT [facility] SPECIMEN SOURCE, GLUCOSE POC Whole Blood 02/16/2025 8:13 AM CDT [facility] Blood, whole 02/16/2025 8:13 AM CDT 02/16/2025 8:24 AM CDT Domingo Adler MD POINT OF CARE TESTING Final Re sult Performing Organization Address [facility]/ZIP Co de Phone Number [facility] CLIA# [id number] [address] [place] [address] * UNFRACTIONATED HEPARIN MONITORING (02/16/2025 6:26 AM CDT) Only the most recent of5 resultswithin the time period is included. Pathologist [facility] ANTI-XA UNFRAC HEP 0.65 See Interpreta tion. IU/mL 02/16/2025 7:09 AM CDT [facility] Blood Venipuncture / Unknown 02/16/2025 6:26 AM CDT 02/16/2025 6:46 AM CDT [facility] - 02/16/2025 7:09 AM CDT Unfractionated Heparin Therapeutic Range: 0.30-0.70 IU/ml Refer to pharmacy adult heparin protocol for further recommendation. The reference range for this test is specific to the anticoagulant and is not appropriate for monitoring patients on a DOAC protocol. Domingo Adler MD HEMATOLOGY ORDERABLES Final Re sult Performing Organization Address City/[facility]/ZIP Co de Phone Number [facility] CLMA# [id number] [address] [place] [address] * CBC WITH DIFFERENTIAL (02/16/2025 6:26 AM CDT) [facility] WBC 8.1 4.0 - 9.8 K/uL 02/16/2025 7:04 AM CDT [facility] RBC 4.67 3.90 - 4.90 M/uL 02/16/2025 7:04 AM CDT [facility] HEMOGLOBIN 13.9 11.8 - 14.8 g/dL 02/16/2025 7:04 AM CDT [facility] SERVICES [facility] HEMATOCRIT 43.6 35.5 - 44.0 % 02/16/2025 7:04 AM T [facility] LABORATORY SERVICES - [facility] MCV 93.4 82.0 - 99.0 fL 02/16/2025 7:04 AM CDT [facility] [facility]ORATORY SERVICES - [facility] MCH 29.8 27.2 - 32.6 pg 02/16/2025 7:04 AM CDT [facility] [facility]ORATORY SERVICES - [facility] MCHC 31.9 31.5 - 35.5 g/dL 02/16/2025 7:04 AM [employer] LABORATORY SERVICES - [facility] RDW 13.1 11.5 - 14.5 % 02/16/2025 7:04 AM CDT [facility] [facility]ORATORY SERVICES - [facility] RDW-STDEV 44.6 37.1 - 48.7 fL 02/16/2025 7:04 AM CDT [facility] LABORATORY SERVICES - [facility] PLATELETS 225 140 - 350 K/uL 02/16/2025 7:04 AM CDT [facility] [facility] [facility]ORATORY SERVICES - [facility] MPV 10.1 9.3 - 12.4 fL 02/16/2025 7:04 AM [employer] LABORATORY SERVICES - . [facility] NEUTROPHILS 62 % 02/16/2025 7:04 AM CDT [facility] [employer] [facility] LABORATORY SERVICES - . [facility] LYMPHOCYTES 25 % 02/16/2025 7:04 AM CDT [facility] [facility] LABORATORY SERVICES - . [facility] MONOCYTES 10 % 02/16/2025 7:04 AM CDT [facility] [facility] LABORATORY SERVICES - . [facility] EOSINOPHILS 2 % 02/16/2025 7:04 AM CDT [facility] [facility] [facility] LABORATORY SERVICES - . [facility] BASOPHILS 1 % 02/16/2025 7:04 AM CDT [facility] [facility] LABORATORY SERVICES - . [facility] IMMATURE GRANULOCYTES 0 % 02/16/2025 7:04 AM CDT [employer] LABORATORY SERVICES - . [facility] NEUTROPHIL ABSOLUTE 5.00 1.90 - 7.00 K/uL 02/16/2025 7:04 AM CDT [facility] LABORATORY SERVICES - . [facility] LYMPHOCYTE ABSOLUTE 2.06 0.70 - 4.50 K/uL 02/16/2025 7:04 AM CDT [employer] LABORATORY SERVICES - . [facility] MONOCYTE ABSOLUTE 0.85 0.10 - 1.30 K/uL 02/16/2025 7:04 AM CDT [employer] LABORATORY SERVICES - . [facility] EOSINOPHIL ABSOLUTE 0.16 0.00 - 0.70 K/uL 02/16/2025 7:04 AM CDT [facility] LABORATORY SERVICES - [facility] BASOPHILS ABSOLUTE 0.05 0.00 - 0.20 K/uL 02/16/2025 7:04 AM CDT [facility] LABORATORY SERVICES - . [facility] IMMATURE GRANULOCYTES ABSOLUTE 0.02 0.00 - 0.03 K/uL 02/16/2025 7:04 AM [facility]ORATORY SERVICES - [facility] Blood Venipuncture / Unknown 02/16/2025 6:26 AM CDT 02/16/2025 6:46 AM CDT us Domingo Adler MD HEMATOLOGY ORDERABLES Final Re sult [facility]ATORY SERVICES [facility]# [id number] [address] [facility] [address] * (ABNORMAL) BASIC METABOLIC PANEL (02/16/2025 6:26 AM CDT) SODIUM 135(L) 136 - 145 mmol/L 02/16/2025 7:23 AM [facility] LABORATORY SERVICES [facility] POTASSIUM 4.0 3.5 - 5.0 mmol/L 02/16/2025 7:23 AM [facility] LABORATORY SERVICES [facility] CHLORIDE 103 98 - 107 mmol/L 02/16/2025 7:23 AM [facility] LABORATORY SERVICES [facility] CO2 23 22 - 29 mmol/L 02/16/2025 7:23 AM [facility] LABORATORY SERVICES [facility] CALCIUM 9.0 8.6 - 10.2 mg/dL 02/16/2025 7:23 AM [facility] [employer] LABORATORY SERVICES [facility] BUN 10 8 - 23 mg/dL 02/16/2025 7:23 AM [facility] [employer] LABORATORY SERVICES [facility] CREATININE 0.77 0.51 - 0.95 mg/dL 02/16/2025 7:23 AM [facility] Comment:The GFR result is no t clinically significant on patients <18 or >70 years of age. GLUCOSE 108(H) 74 - 99 mg/dL 02/16/2025 7:23 AM [facility] GFR >60 mL/min/1.7 3 sq meter 02/16/2025 7:23 AM CDT [facility] Comment:eGFR calculated with 2020 CKD-EPI equation. Vegetarian diet, extremely high or low muscle mass, and may affect results. Cystatin C with Glomerular Filtration Rate is a suitable alternative for these patients. ANION GAP 9 8 - 16 mmol/L 02/16/2025 7:23 AM CDT [facility] Blood Venipuncture / Unknown 02/16/2025 6:26 AM CDT 02/16/2025 6:46 AM CDT us Domingo Adler MD CHEMISTRY ORDERABLES Final Res ult [facility] CLIA# [id number] [address] [place] [address] * ECHOCARDIOGRAM W/ CONTRAST AGENT (02/15/2025 1:18 PM CDT) EJECTION FRACTION 45 INTERFACE SYSTEM 02/15/2025 12:4 1 PM CDT Narrative INTERFACE SYSTEM - 02/15/2025 4:44 PM CDT [address] [address] [place] [address] [email or web address] Transthoracic Echocardiogram Patient: Yajaira Solo Study ID: ECHO COMPLETE - Gender: F : 1955 Age: 69 Race: CAU Height 167.6cm Study Date: 02/15/2025 Weight: 84kg Access. #: [id number] BP: *Referring Physician:Ninfa Hernandez, Saji Purvis *Ordering Physician:Ninfa Hernandez billet sawyer: Nurse: Indications: Pulmonary embolism. STUDY CONCLUSIONS: SUMMARY: [...] cm --------- Area 3.1 cm^2 --------- Peak hcan, S 0.92 m/sec --------- VTI, S 19.6 [...] PM. Prepared and Electronically Authenticated Dino Calderon [id number] Procedure Note Dino Calderon MD - 02/15/2025 [place] [address] [email or web address] Transthoracic Echocardiogram Patient: Yajaira Solo Study ID: ECHO COMPLETE - Gender: F : 1955 Age: 69 Race: JASIEL Height 167.6cm Study Date: 02/15/2025 Weight: 84kg Access. #: [id number] BP: *Referring Physician:Ninfa Hernandez Kristopher Andrew *Ordering Physician:Ninfa Hernandez billet sawyer: Nurse: Indications: Pulmonary embolism. STUDY CONCLUSIONS: SUMMARY: [...] PM. Prepared and Electronically Authenticated Dino Calderon [id number] us Ninfa Ch MD US ORDERABLES Final Resu lt INTERFACE SYSTEM Refer to clinic/hospital department * PTT (02/15/2025 3:12 AM CDT) PTT 29.8 24.4 - 36.4 seconds 02/15/2025 3:54 AM CDT [facility] Comment: PTT Therapeutic Range: Heparin Level PTT (seconds) <0.10 units/mL <55.8 0.10 - 0.30 units/mL 55.8 - 74.3 0.30 - 0.70 units/mL* 74.3 - 111.2* 0.70 - 1.00 units/mL 111.2 - 138.9 *corresponds to therapeutic range for unfractionated heparin Blood Venipuncture / Unknown 02/15/2025 3:12 AM CDT 02/15/2025 3:31 AM CDT us Ninfa Ch MD HEMATOLOGY ORDERABLES Marla l Result Performing Organization Address City/[facility] Co de Phone Number [facility] CLIA# [id number] [address] [place] [address] * CBC WITHOUT DIFFERENTIAL (02/15/2025 3:12 AM CDT) [facility] WBC 9.2 4.0 - 9.8 K/uL 02/15/2025 3:48 AM CDT [facility] SERVICES - [facility] RBC 4.64 3.90 - 4.90 M/uL 02/15/2025 3:48 AM CDT [facility] [facility] LABORATORY SERVICES - . [facility] HEMOGLOBIN 13.7 11.8 - 14.8 g/dL 02/15/2025 3:48 AM CDT [facility] SERVICES - . [facility] HEMATOCRIT 42.6 35.5 - 44.0 % 02/15/2025 3:48 AM CDT [facility] SERVICES - [facility] MCV 91.8 82.0 - 99.0 fL 02/15/2025 3:48 AM CDT [facility] SERVICES - [facility] MCH 29.5 27.2 - 32.6 pg 02/15/2025 3:48 AM CDT [facility] SERVICES - [facility] MCHC 32.2 31.5 - 35.5 g/dL 02/15/2025 3:48 AM CDT [facility] SERVICES - [facility] PLATELETS 232 140 - 350 K/uL 02/15/2025 3:48 AM CDT [facility] SERVICES - [facility] MPV 10.5 9.3 - 12.4 fL 02/15/2025 3:48 AM CDT [facility] SERVICES - [facility] RDW 13.2 11.5 - 14.5 % 02/15/2025 3:48 AM CDT [facility] SERVICES - [facility] RDW-STDEV 44.8 37.1 - 48.7 fL 02/15/2025 3:48 AM CDT [facility] - [facility] Blood Venipuncture / Unknown 02/15/2025 3:12 AM CDT 02/15/2025 3:31 AM CDT us Ninfa Ch MD HEMATOLOGY ORDERABLES Marla charlene Result [facility] SERVICES - [facility] CLIA# [id number] [address] [facility] [address] [place] [address] * (ABNORMAL) COMPREHENSIVE METABOLIC PANEL (02/15/2025 3:12 AM CDT) Pathologist [facility] SODIUM 141 136 - 145 mmol/L 02/15/2025 4:22 AM CDT [facility] [facility] LABORATORY SERVICES - [facility] POTASSIUM 3.5 3.5 - 5.0 mmol/L 02/15/2025 4:22 AM CDT [facility] CHLORIDE 105 98 - 107 mmol/L 02/15/2025 4:22 AM CDT [facility] CO2 25 22 - 29 mmol/L 02/15/2025 4:22 AM CDT [facility] CALCIUM 8.8 8.6 - 10.2 mg/dL 02/15/2025 4:22 AM CDT [facility] [facility] [facility] LABORATORY SERVICES - . [facility] BUN 10 8 - 23 mg/dL 02/15/2025 4:22 AM T [employer] [facility] LABORATORY SERVICES - . [facility] CREATININE 0.89 0.51 - 0.95 mg/dL 02/15/2025 4:22 AM [facility] LABORATORY SERVICES - . [facility] Comment:The GFR result is no t clinically significant on patients <18 or >70 years of age. GLUCOSE 111(H) 74 - 99 mg/dL 02/15/2025 4:22 AM [employer] [facility] LABORATORY SERVICES - . [facility] TOTAL PROTEIN 6.2(L) 6.7 - 8.6 g/dL 02/15/2025 4:22 AM [employer] [facility] LABORATORY SERVICES - . [facility] ALBUMIN 3.7 3.5 - 5.2 g/dL 02/15/2025 4:22 AM [employer] [facility] LABORATORY SERVICES - . [facility] BILIRUBIN TOTAL 0.6 0.2 - 1.1 mg/dL 02/15/2025 4:22 AM [employer] [facility] LABORATORY SERVICES - . [facility] ALKALINE PHOSPHATASE 79 35 - 104 U/L 02/15/2025 4:22 AM CDT [facility] [facility] LABORATORY SERVICES - . [facility] AST 18 <33 U/L 02/15/2025 4:22 AM [employer] [facility] LABORATORY SERVICES - . [facility] ALT 16 <34 U/L 02/15/2025 4:[address] [facility] GFR >60 mL/min/1.7 3 sq meter 02/15/2025 4:[address] [facility] Comment:eGFR calculated with 2020 CKD-EPI equation. Vegetarian diet, extremely high or low muscle mass, and may affect results. Cystatin C with Glomerular Filtration Rate is a suitable alternative for these patients. ANION GAP 11 8 - 16 mmol/L 02/15/2025 4:[address] [facility] Blood Venipuncture / Unknown 02/15/2025 3:12 AM CDT 02/15/2025 3:31 AM CDT Narrative [facility] - 02/15/2025 4:22 AM [facility] Samples containing indocyanine green cause interferences on Total and/or Direct Bilirubin and must not be measured. Ninfa Ch MD CHEMISTRY ORDERABLES Final Result Performing Organization Address City/State/[facility] Co de Phone Number [facility]# [id number] [address] [place] [address] from Last 3 Months Insurance [facility] [id number] RX [employer] RX Member Subscriber Plan / Payer (Ef fective 2021-Present) Name:Yajaira Solo Relation to Subscriber:Self Name:Yajaira Solo Payer ID:Not on file Group ID:[id number] Type:RX Medicare Part D [facility] [address] [place] [id number] [facility] [id number] Advance Directives For more information, please contact: [phone] * Full Code (Latest Code Status on File) Date Activated Date Inactivated Comments 02/15/2025 2:46 AM 02/16/2025 3:45 PM Care Teams Hotel Concierge Relationship Specialty [place] [address] [place] [phone] PCP - General Internal Medicine 02/15/25
== END 2025-04-05 09:14 | disposition home or self-care (01) ==
PROVIDERS: PCP Physician Assistant; Visit Provider Internal Medicine Cardiovascular Disease
DX: I50.20 Unspecified systolic (congestive) heart failure (principal)
CPT/HCPCS: 78452; 93017; A9502; J2785

== ENCOUNTER 2025-04-30 07:00 | Outpatient (CLI) | payer MEDICARE, SELFPAY ==
--- NOTE | ~2025-04-30 | MR_ITS ---
MRI of the lumbar spine Clinical History: Back pain Technique: Axial T2-weighted images, and sagittal T1-weighted, T2-weighted, and T2 fat-sat images wer e acquired. Findings: There is no fracture or subluxation of the lumbar spine. Vertebral bodies maintain normal h eight and alignment. No bone marrow signal abnormality seen. At L1-L2, L2-L3, there is no disc bulge or herniation. No spinal canal stenosis or neural foraminal n arrowing at these levels. At L3-L4, there is minimal disc bulge. There is mild facet hypertrophy. No spinal canal stenosis. The re is mild to moderate bilateral neural foraminal narrowing, left worse than right. At L4-L5, there is mild diffuse disc bulge with mild to moderate facet arthropathy. No central canal stenosis. There is moderate right neural foraminal narrowing, and mild left neural foraminal narrowin g. At L5-S1, there is minimal disc bulge. There is mild facet arthropathy. No central canal stenosis. Th ere is mild left neural foraminal narrowing. Right neural foramen preserved. Paravertebral soft tissues are unremarkable. Impression: Mild degenerative spondylosis overall, worst at L4-L5. Reviewed, dictated and finalized at [facility]. Impression: Mild degenerative spondylosis overall, worst at L4-L5.
--- OUTSIDE RECORDS SUMMARY | 2025-04-30 07:03 | XMS_ITS | Data Portability ---
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 Hopefully that will [...] more than half the time spent in lzle-qd-xjzh care. Not available 07/30/2023 09:36:56 08/27/2023 08/27/2023 [...] more than half the time spent in jfjp-ju-wtlq care. Not available 09/06/2023 15:41:25 01/03/2024 01/03/2024 [...] 023 [email or web address] Not available 3 17:12:09 Referral reception specialist referral 2022 023 [email or web address] [place], [address] [place] [address] , [address], [place], [address], 4 08:58:22 gynecologis t referral - no referral required 2022 023 [email or web address] 4 Arturo Handy MD, [address], [place], [address], 3 14:27:33 Procedures colonoscopy procedure (PROC) - no referral required 2022 023 [email or web address] Mark Irizarry MD, [address], [address], [place], [address], 4 10:21:15 Surgeries None recorded. Imaging XR, foot 2023 024 [facility] [place], [address], [place], [address], 4 18:27:48 XR, foot 2022 023 [email or web address] [facility] [place], [address], [place], [address], 3 16:04:53 XR, foot 2022 023 [facility] [place], [address], [place], [address], 3 10:07:11 MAMMO, screening, digital, bilateral 2022 023 [email or web address] Not available 4 10:21:20 LDCT, chest, for lung cancer screening - no auth required 2022 023 DUC Not available 3 10:32:55 Medication Orders nystatin 100,000 unit/gram topical cream 2022 023 [facility] [address] [facility], [place], [address], 3 11:01:24 triamcinolo ne acetonide 0.1 % topical cream 2022 023 [facility] [address] [facility], [place], [address], 3 11:01:27 doxycycline hyclate 100 mg tablet [address] [facility] [address] [facility], [place], [address], 08:55:18 prednisone 20 mg tablet [address] [facility] [address] [facility], [place], [address], 08:55:27 ergocalcife rol (vitamin D2) 1,250 mcg (50,000 unit) capsule 2022 023 [facility] [address] [facility], [place], [address], 11:01:27 Patient TargetsNo targets recorded. Patient Instructions Encounter Date Encounter Id Patient Instructions Last Modified By Organization Details Last Modified Time 07/19/2023 [id number] dementia rating scale-2* [email or web address] Not available 07/19/2023 11:11:55 multi-dimensiona health assessment questionnaire* [email or web address] Not available 07/19/2023 11:12:00 care plan* [email or web address] Not available 11:11:51 advance directiv es: care instructions Not available 07/19/2023 11:01:17 advance care planning: care instructions Not available 07/19/2023 11:01:17 [place] Advance Directives Not available 07/19/2023 11:01:17 Personalized [facility] Plan and Screening Recommendations Advance Directives - [...] Ordered Cervical/Uterine/Ov maged Cancer Screening: Referral to area attendant Osteoporosis Screening: Your next DEXA in: 2024 Date Screening Last Performed: Colon Cancer Screening: Colonoscopy In: january 2022 Date Screening Last Performed: Eye Disease Screening: Recommended today Dementia Risk: Low Depression Screening: Positive Active diagnosis, Continue current treatment plan Not available 07/20/2023 14:20:00 Reason for Referral [place] Referral for Po stmenopausal bleeding no referral required Referring Physician: Brenda Bowie, Internal Medicine, Encounter Date: 07/19/2023 Cd Mixer 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 Referring Physician: Brenda Bowie, Internal Medicine, Encounter Date: 09/02/2023 Results Created Date Observation Date Name Description Value Unit Range Abnormal Flag Note LastModifiedBy Organization Detail LastModifiedTime 06/23/20 23 XR, knee No observ ation record ed. [email or web address] [place] [address] [facility] [address], [place], [address], 06/23/2023 09:02:56 07/02/20 XR, foot No observ ation record ed. [facility] [place] [address], [place], [address], 07/05/2023 14:33:19 07/30/20 XR, foot No observ ation record ed. [facility] [place] [address], [place], [address], 07/30/2023 09:38:31 08/06/2008/06/2023 LDCT, chest , for lung cance r maranda spears No observ ation record ed. [address], [place], [address], 09/02/2023 11:51:49 08/06/2008/06/2023 MAMMO , maranda felixg, digit al, bilat eral No observ ation record ed. Not Available 2022 11:51:53 08/24/2008/24/2023 US, liver No observ ation record ed. [facility] [address] [place], [address], 09/02/2023 15:46:10 08/27/20 XR, foot No observ ation record ed. [facility] [place] [address], [place], [address], 09/06/2023 15:42:20 01/03/20 24 XR, foot No observ ation record ed. [facility] [place] [address], [place], [address], 01/03/2024 16:49:52 Result Notes None recorded. 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 883696761 Active 2022 Not Available [facility] 3 16:25:57 Pruritic rash 21751363 Active 2022 Not Available [facility] 3 16:25:58 Pain in left foot 00669471511 9107 Active 2022 Not Available [facility] 3 16:25:57 Vitamin D deficienc y 39113908 Active 2022 Not Available [facility] 3 16:25:57 Osteoporo sis 78849694 Active 2022 Not Available [facility] 3 16:25:58 Closed fracture of metatarsa l bone 55082938 Active 2022 Not Available [facility] 3 16:25:57 Closed fracture of metatarsa l bone 66364196 Active 2022 Jen Rider CMA null, [place] [facility] 3 11:57:41 Osteoarth ritis of right knee joint 57845426451 9100 Active 2022 ZEINAB Garcia null, [place] [facility] [place] [facility] 3 08:32:21 Smoker 55420444 Active 2022 ANA Wilson [address], [address], [place], [address] , [facility] 3 10:56:02 Postmenop ausal bleeding 04463779 Active 2022 ANA Wilson [address], [address], [place], [address] , [facility] 3 10:58:21 Acute dermatiti s 95572430 Active 2022 ANA Wilson [address], [address], [place], [address] , [facility] [employer] [facility] 3 10:59:16 Liver enzymes level above reference range 543081170 Active 2022 ANA Wilson [address], [address], [place], [address] , [facility] 3 13:37:43 Ground glass opacity Active 2022 ANA Wilson [address], [address], [place], [address] , [facility] - [facility] 3 11:53:16 Steatotic liver disease 359018192 Active 2022 ANA Wilson [address], [address], [place], [address] , [facility] 3 11:55:36 Generaliz ed abdominal pain 457240030 Active 2021 Not Available [facility] 3 16:25:57 Disorder of shoulder 693182381 Active Not Available [facility] 3 16:25:57 Benign essential hypertens ion 3378049 Active 2021 Not Available [facility] 3 16:25:57 Fracture of bone 145080832 Active Not Available [facility] 3 16:25:57 Disorder of trunk 207342338 Active Not Available [facility] 3 16:25:57 Seizure disorder 468766190 Active 2021 Not Available [facility] 3 16:25:57 Hyperchol esterolem ia 28001479 Active 2016 Not Available [facility] 3 16:25:57 Chronic obstructi ve pulmonary disease 22292326 Active 2021 Not Available [facility] 3 16:25:57 Pain of right shoulder joint 48576466415 425748 Active 2021 Not Available [facility] 3 16:25:57 Pain of joint of wrist 017583397 Active Not Available [facility] 3 16:25:57 Partial thickness rotator cuff tear 855530368 Active Not Available [facility] 3 16:25:57 Osteoarth ritis of joint of hand 95238676 Active Not Available [facility] 3 16:25:57 Gastroeso phageal reflux disease 532793239 Active 2019 Not Available [facility] 3 16:25:57 Osteoarth ritis of hip 074043876 Active Not Available [facility] 3 16:25:57 Osteoarth ritis of knee 509251622 Active Not Available [facility] 3 16:25:57 Shoulder joint pain 315638303 Active Not Available [facility] 3 16:25:57 Syncope 437568991 Active 2021 Not Available [facility] 3 16:25:57 Family history of malignant neoplasm 786464958 Active 2016 Not Available [facility] 3 16:25:57 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 56111133 Active Not Available [facility] 3 16:25:57 Tear of medial meniscus of knee 328231153 Active 2021 Not Available [facility] 3 16:25:57 Pain in pelvis 64254019 Active 2021 Not Available [facility] 3 16:25:57 Enthesopa thy of hip region 99019929 Active Not Available [facility] 3 16:25:57 Pain of left hip joint 43783955837 9100 Active 2021 Not Available [facility] 3 16:25:57 Depressiv e disorder 71593833 Active 2021 Not Available [facility] 3 16:25:57 Hypertens edu disorder 82085742 Active 2016 Not Available [facility] 3 16:25:57 Osteoarth ritis 001119522 Active Not Available [facility] 3 16:25:57 Periphera l vascular disease 922240809 Active 2021 Not Available [facility] 3 16:25:58 Hypothyro idism 54806523 Active 2021 Not Available [facility] 3 16:25:58 Hypokalem ia 87724222 Active 2021 Not Available [facility] 3 16:25:58 Tubular adenomato us polyp of colon 502424191 Active 2021 colonosco py done 12/17/21- she had a >1 cm tubular adenoma at the distal ascending colon that was referred to [facility] Not Available [facility] 3 16:25:58 Pain of right knee joint 23942658026 4100 Active 2021 Not Available [facility] 3 16:25:58 Pain of hip region 17904186 Active Not Available [facility] 3 16:25:58 Candidias is of skin 06182464 Active 2021 Not Available [facility] 3 16:25:58 Hyperlipi demia 40672288 Active 2021 Not Available [facility] 3 16:25:58 Candidias is of mouth 77858422 Active 2021 Not Available [facility] 3 16:25:58 Impaired glucose tolerance 5819246 Active 2021 Not Available [facility] 3 16:25:58 Notes:Some problems listed i n Document: #[id number] could not be added to this patient's chart. Please review this document and add these problems to the patient's chart manually as needed. Problem Notes None recorded. Procedures Surgical History Date Name Laterality Status Provider Name and Address Organization Details Recorded Time 07/19/20 Medicare Wellness CPT Code, subsequent completed RADHA Jones [facility] 07/19/2023 10:27:11 04/09/20 23 Most Recent Bone Density completed ZEINAB Bhardwaj [facility] 07/16/2023 12:11:34 08/14/20 22 Date of Last Mammogram completed ZEINAB Bhardwaj [facility] 07/16/2023 12:11:41 02/07/20 22 Date of Last Colonoscopy completed Not Available [facility] 12/23/2022 04:42:07 10/25/19 15 Total hip arthroplasty completed Not Available [facility] 12/23/2022 04:42:13 10/25/19 13 Total hip arthroplasty completed Not Available [facility] 12/23/2022 04:42:13 Ablation completed Not Available [facility] 04:42:13 Imaging Results None recorded. Procedure [...] [facility] [phone] Not Available Not Available Not [...] Updated DateTime 01/03/2024 160.02 cm ZEINAB Garcia Matt [facility] 01/03/2024 14:20:57 Date Recorded Body height Body mass index (BMI) Body weight Body temperature Heart rate Oxygen saturation Oxygen saturation in Arterial blood by Pulse oximetry Systolic And Diastolic Provider Name and Address Organization Details Last Updated DateTime 3 160.02 cm 31.9 kg/m2 01714.6 3 g 98.1 [degF] 83 /min 97 % 97 % 132/80 mm[Hg] April Kaplan RN [facility] [employer] [facility] 3 10:33:49 Date Recorded Body height Provider Name an d Address Organization Details Last Updated DateTime 07/30/2023 160.02 cm Gayla Leal [facility] 07/30/2023 08:51:36 Date Recorded Body height Provider Name an d Address Organization Details Last Updated DateTime 08/27/2023 160.02 cm Gayla Leal [facility] 08/27/2023 08:55:04 Date Recorded Body height Body temperature Body mass index (BMI) Body weight Heart rate Respiratory rate Oxygen saturation Oxygen saturation in Arterial blood by Pulse oximetry Systolic And Diastolic Provider Name and Address Organization Details Last Updated DateTime 160.02 cm 97.2 [degF] 33 kg/m2 23258.9 8 g 64 /min 16 /min 93 % 93 % 130/80 mm[Hg] [facility] 11:28:59 Social History Question Answer Notes LastModified by Organizat ion Details LastModified Time Tobacco Smoking Status Current Every Day Smoker Not Available [facility] 12/23/2022 04:06:30 Do You Have An Advance Directive? Yes MIGRATION.83280 74815 Information not available 12/23/2022 Are You Blind Or Do You Have Difficulty Seeing? Yes MIGRATION.65882 24750 Information not available 12/23/2022 What Is Your Level Of Caffeine Consumption? Occasional MIGRATION.98992 84097 Information not available 12/23/2022 How Much Tobacco Do You Chew? None MIGRATION.32446 19907 Information not available 12/23/2022 In The 14 Days Before Symptom Onset, Have You Had Close Contact With A Laboratory-confir med COVID-19 While That Case Was Ill? No MIGRATION.92187 22740 Information not available 12/23/2022 In The 14 Days Before Symptom Onset, Have You Had Close Contact With A Person Who Is Under Investigation For COVID-19 While That Person Was Ill? No MIGRATION.85355 77959 Information not available 12/23/2022 Are You Deaf Or Do You Have Serious Difficulty Hearing? Yes MIGRATION.30934 53903 Information not available 12/23/2022 What Type Of Diet Are You Following? REGULAR MIGRATION.66349 64647 Information not available 12/23/2022 Which Illicit Or Recreational Drugs Have You Used? None MIGRATION.28078 11851 Information not available 12/23/2022 Have There Been Any Changes To Your Family Or Social Situation? No MIGRATION.30483 27396 Information not available 12/23/2022 Are There Any Guns Present In Your Home? No MIGRATION.27314 74898 Information not available 12/23/2022 Do You Use Insect Repellent Routinely? No MIGRATION.97855 43630 Information not available 12/23/2022 Presence Of Domestic Violence No [email or web address] Information no t available 07/19/2023 Are You Able To Care For Yourself? Yes [email or web address] Information not available 07/19/2023 Are You Blind Or Do Yo Have Difficulty Seeing? Yes Reading Glasses [email or web address] Information not available 07/19/2023 Are You Deaf Or Do You Have Serious Difficulty Hearing? No [email or web address] Information not available 07/19/2023 General Stress Level? Moderate [email or web address] Information not available 07/19/2023 Live Alone Of With Others? Alone [email or web address] Information not available 07/19/2023 Do You Have A Medical Power Of Manager Practice? Yes Good Friend, Gaylanasrin Ruiz MIGRATION.74668 44632 Information not available 12/23/2022 What Was The Date Of Your Most Recent Tobacco Screening? 03/05/2021 MIGRATION.21869 97061 Information not available 12/23/2022 Do You Have Any Pets? Yes MIGRATION.11551 08657 Information not available 12/23/2022 What Is Your Relationship Status? Single MIGRATION.49622 73173 Information not available 12/23/2022 Do You Use Your Seat Belt Or Car Seat Routinely? Yes MIGRATION.81402 25208 Information not available 12/23/2022 Do You Have Smoke And Carbon Monoxide Detectors In Your Home? Yes MIGRATION.15397 14834 Information not available 12/23/2022 At What Age Did You Start Smoking Tobacco? 24 MIGRATION.76486 37967 Information not available 12/23/2022 Are You Passively Exposed To Smoke? Yes MIGRATION.49071 22858 Information not available 12/23/2022 Are There Any Smokers In Your House? Yes MIGRATION.82760 50903 Information not available 12/23/2022 How Much Tobacco Do You Smoke? 1 PPW MIGRATION.17763 44190 Information not available 12/23/2022 Do You Use Sunscreen Routinely? Yes MIGRATION.56117 91166 Information not available 12/23/2022 How Many Years Have You Smoked Tobacco? 25 MIGRATION.82830 61373 Information not available 12/23/2022 Have You Recently Traveled Abroad? No MIGRATION.91587 60179 Information not available 12/23/2022 Do You Have Difficulty Walking Or Climbing Stairs? Yes MIGRATION.91355 25508 Information not available 12/23/2022 Do You Have Any Dietary Restrictions? No MIGRATION.71382 42432 Information not available 12/23/2022 Sex: Female Functional Status Question Answer Note LastModified by Incentive Details LastModified Time Do you use any illicit or recreational drugs? No MIGRATION.446405 0702 Information not available 12/23/2022 Do you or have you ever used any other forms of tobacco or nicotine? No MIGRATION.868517 0580 Information not available 12/23/2022 What is your level of alcohol consumption? None MIGRATION.534983 1433 Information not available 12/23/2022 Do you or have you ever used smokeless tobacco? Never used smokeless tobacco MIGRATION.485636 4215 Information not available 12/23/2022 Do you have transportation difficulties? Yes MIGRATION.716031 5817 Information not available 12/23/2022 Are you able to walk? YESASSIST [email or web address] Information not available 07/19/2023 Do you have difficulty doing errands alone? No MIGRATION.275651 7656 Information not available 12/23/2022 Are you able to care for yourself? Yes MIGRATION.535679 8644 Information not available 12/23/2022 Do you have difficulty dressing or bathing? No MIGRATION.487895 4073 Information not available 12/23/2022 Do you or have you ever used e-cigarettes or vape? Never used electronic cigarettes MIGRATION.400760 0404 Information not available 12/23/2022 What is your exercise level? None MIGRATION.752553 2590 Information not available 12/23/2022 Mental Status Question Answer Note LastModified by [employer] ion Details LastModified Time Do you have difficulty concentrating, remembering or making decisions? No MIGRATION.619398178 6 Information not available 12/23/2022 Family History Relationship Description Onset Age of this Age Resolved Age Notes LastModified by Organization Details LastModified Time Father Heart disease MIGRATION.869 [id number] Not available 12/23/2022 04:42:14 Father Hypertensive disorder MIGRATION.859 9583727 Not available 12/23/2022 04:42:14 Father Diabetes mellitus MIGRATION.659 5288211 Not available 12/23/2022 04:42:14 Mother Heart disease MIGRATION.011 9779727 Not available 12/23/2022 04:42:14 Mother Family history of malignant neoplasm MIGRATION.958 6385866 Not available 12/23/2022 04:42:14 Mother Diabetes mellitus MIGRATION.114 4670670 Not available 12/23/2022 04:42:14 Medical History Condition [...] high-dose, quadrivalent, PF 0 completed Not Available [facility] 05/03/2023 16:25:58 Pneumococcal conjugate PCV 13 0 completed Not Available [facility] 05/03/2023 16:25:58 Past Encounters Encounter ID Performer Location Encounter Start Date Encounter Closed Date Diagnosis/Indication Diagnosis SNOMED-CT Code Diagnosis ICD10 Code Diagnosis Note [id number] [facility] [address] [place] [address] 02/05/2021 00:00:00 02/10/2021 12:15:37 [id number] MD IVETH Oropeza [facility] [address] [place] [address] 02/27/2021 00:00:00 03/02/2021 16:07:23 [id number] Ran Rommel, MD [facility] [place] [address] [place] [address] 03/05/2021 00:00:00 03/15/2021 22:29:08 [id number] ANA Wilson [facility] [place] [address] [place] [address] 03/17/2021 00:00:00 03/21/2021 18:02:04 [id number] Ran Carney MD [facility] [place] [address] [place] [address] 04/16/2021 00:00:00 04/16/2021 10:28:54 [id number] ANA Wilson [facility] [place] [address] [place] [address] 06/23/2021 00:00:00 06/23/2021 22:41:56 [id number] ANA Wilson [facility] [place] [address] [place] [address] 09/08/2021 00:00:00 09/23/2021 18:26:16 [id number] Ran Carney MD [facility] [place] [address] [place] [address] 01/14/2022 00:00:00 02/01/2022 17:50:53 [id number] Ran Carney MD [facility] [place] [address] [place] [address] 02/04/2022 00:00:00 02/04/2022 09:06:32 [id number] Ran Carney MD [facility] [place] [address] [place] [address] 02/20/2022 00:00:00 02/20/2022 09:19:09 [id number] Ran Carney MD [facility] [place] [address] [place] [address] 03/13/2022 00:00:00 03/13/2022 09:18:[id number] [facility] [place] [address] [place] [address] 06/15/2022 00:00:00 06/21/2022 10:43:[id number] [facility] [place] [address] [place] [address] 09/25/2022 00:00:00 09/25/2022 10:14:07 [id number] [place] [facility] [place] [address] [place] [address] 11/13/2022 00:00:00 11/22/2022 13:34:[id number] [facility] [place] [address] [place] [address] 12/11/2022 00:00:00 12/11/2022 09:22:[id number] [place] [facility] [place] [address] [place] [address] 01/22/2023 10:02:11 01/25/2023 09:58:48 Partial thickness rotator cuff tear 865350659 M75.101 Neck pain 12505474 M54.2 Ulnar nerv e entrapment at elbow 524478671 G56.[id number] [facility] [place] [address] [place] [address] 02/10/2023 13:59:07 02/10/2023 14:36:32 Pruritic rash 88203160 L28.2 Rx for steroid cream and nystatin as well to utilize both for different rashes. groin with jud that needs antifungal tx. steroid cream for buttock region. Hypothyroidism 30735189 E03.9 due for TFTs. not on supplement therapy. Hyperlipidemia 13232813 E78.5 on statin therapy, due for fasting lipids Impaired g lucose tolerance 1834169 R73.03 a1c due w/IGT hx Long-term drug therapy 984987632 Z79.899 all routine bmp, lft and CBC labs due History of polyp of colon 130974440 Z86.010 due for colonoscop y f/u screening [id number] Ran [place] MD [facility] [place] [address] [place] [address] 02/24/2023 08:28:05 02/24/2023 10:01:39 Pain in left foot 2712989719 15606 M79.672 [id number] Ran [place] MD [facility] [place] [address] [place] [address] 03/03/2023 08:28:43 03/03/2023 09:08:55 Pain in left foot [id number] 91679 M79.672 [id number] Ran Carney MD [facility] [place] [address] [place] [address] 2023 08:45:18 2023 09:31:50 Pain in left foot [id number] 73934 M79.672 [id number] Ran Carney MD [facility] [place] [address] [place] [address] 04/02/2023 08:46:25 04/02/2023 09:14:02 Pain in left foot [id number] 33666 M79.672 [id number] Ran Carney MD [facility] [place] [address] [place] [address] 04/21/2023 08:32:44 04/23/2023 14:32:27 Closed fracture of metatarsal bone 56632352 S92.315D [id number] Ran Carney MD [facility] [place] [address] [place] [address] 05/14/2023 08:47:32 05/14/2023 10:06:58 Closed fracture of metatarsal bone 82550336 S92.315D [id number] Ran Carney MD [facility] [place] [address] [place] [address] 06/04/2023 08:42:16 06/04/2023 12:28:24 Closed fracture of metatarsal bone 17466000 S92.315D [id number] Ran Carney MD [facility] [place] [address] [place] [address] 06/23/2023 08:24:05 06/23/2023 09:07:56 Osteoarthritis of right knee joint [id number] 11898 M17.11 [id number] [address] [facility] [place] [address] [place] [address] 07/02/2023 08:48:50 07/05/2023 15:12:23 Closed fracture of metatarsal bone [id number] S92.315D [id number] ANA iWlson [facility] [place] [address] [place] [address] 07/19/2023 10:26:00 07/19/2023 11:22:00 Adult health examination [id number] Z00.00 mawe completed /routine f/u completed Screening for disorder 963310906 Z13.9 Hypothyroidism 82465895 E03.9 due for TFTs. not on supplement therapy. Hyperlipidemia 00257479 E78.5 on statin therapy, due for fasting lipids Impaired g lucose tolerance 5811602 R73.03 a1c due w/IGT hx Long-term drug therapy 402046695 Z79.899 all routine bmp, lft and CBC labs due History of polyp of colon 361044393 Z86.010 Still due for 1 year f/u colonoscop y screening that is past due. ordered again Screening mammography 24 902443 Z12.31 mammogram due in jul. Smoker 38089629 F17.200 LDCT scan ordered Osteoporosis 15253328 M8 1.0 UTD on dexa 2022 Vitamin D deficiency 347 99378 E55.9 refill vitamin D that was very low on ortho screening. Postmenopa usal bleeding 48243997 N95.0 refer to gyne promptly as she had occult PMB. Acute dermatitis 8187076 6 L30.9 Rx for steroid cream, prednisone taper, antifungal cream and doxy 100mg bid course to treat different derm rashes and lesions present on exam today. [id number] Ran Carney MD [facility] [place] [address] [address] [place] [address] 07/30/2023 08:47:25 07/30/2023 09:53:07 Closed fracture of metatarsal bone 45973435 S92.315D [id number] Ran Carney MD [facility] [place] [address] [place] [address] 08/27/2023 08:52:42 09/06/2023 16:04:53 Closed fracture of metatarsal bone 63942565 S92.315D [id number] ANA Wilson [facility] [place] [address] [place] [address] 09/02/2023 11:22:54 09/02/2023 12:02:11 Ground glass opacity 0580328313 R91.8 refer to Pulmonary for f/u on ground glass opacity on LDCT Steatotic liver disease 229611650 K76.0 f/u LFT panel ordered to evaluate for any improvemen t in LFT with dietary changes. AST was 60 on jul labs. [id number] Ran Carney MD [facility] [place] [address] [place] [address] 01/03/2024 14:15:36 01/03/2024 17:01:29 Closed fracture of metatarsal bone 36451643 S92.315D Health Concerns Section Related Observation LastModified by Organization Detai ls LastModified Time None Recorded Concern Status LastModified by Organization Details LastModified Time None Recorded Advance Directives Directive Y: Payers Insurance Date Sequence Insurance Name Policy Number Policy Thomas Covered Member ID Thomas Member ID Guarantor Name 03/23/2023 [employer] VANDANA [facility] Yajaira Solo 01/03/2024 1 [facility] (MEDICARE REPLACEMENT/ ADVANTAGE - HMO) [id number] Yajaira Solo [id number] Yajaira Solo Notes Date Note Type Note [...] in your bucket for review. ANA Wilson [address] [place] [address], [place] [address], [place], [address], [place] [employer] [facility] 07/20/2023 14:20:32 08/27/20 text/htm l patient returns. [...] can aggravate the situation. Ran Carney MD [address] [place] [address], [place], [address], [employer] [facility] 09/06/2023 15:42:37 09/02/20 23 text/htm l [...] is recommended on that. ANA Wilson [address] [place] [address], [place], [address], [employer] [facility] 09/22/2023 23:02:08 01/03/20 24 text/htm l [...] anatomic alignment. Ran Carney MD [address], [place] [address], [place], [address], [employer] [facility] 01/03/2024 16:56:42 OBGyn Episode No OBEpisode recorded.
--- OUTSIDE RECORDS SUMMARY | 2025-04-30 07:04 | XMS_ITS | Clinical Summary ---
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 This disclosure is being madepursuant to the Care Everywhere program and may not contain all information available regarding this patient. Last updated 18.[facility] Allergies No known active allergies Medications * Be aware that medications may not be up to date on this document. Alwaysverify current medications with the patient. 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
--- OUTSIDE RECORDS SUMMARY | 2025-04-30 07:04 | XMS_ITS | Data Portability ---
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 [facility] - [facility] 7 14:52:35 Obstruct edu sleep apnea syndrome 58138197 Active 2016 mild, rec CPAP 8cm H2O Nahed Ceballos PA-C Attn: Kelvin pratt,[address] [facility], [place], [address], [facility] - [facility] 7 14:53:41 Osteopor osis 96080553 Active 2016 Nahed Ceballos PA-C Attn: Kelvin pratt,[address] [facility], [place], [address], [facility] - [facility] 7 11:22:30 Problem Notes None recorded. Procedures Surgical History Date Name Laterality Status Provider Name and Address Organization Details Recorded Time 10/06/20 18 percutaneous radiofrequency ablation of epicardium completed Nahed Ceballos PA-C Attn: Accounting,[address] [facility], [place], [address], [facility] - [facility] 10/19/2018 10:24:13 05/17/20 18 Nebulizer tx completed Nahed Ceballos PA-C Attn: Accounting,[address] [facility], [place], [address], [facility] - [facility] 05/18/2018 13:21:28 05/24/20 17 [facility]/10[facility]2017 11:41:47 05/10/20 17 Nebulizer tx completed Nahed Ceballos PA-C Attn: Accounting,[address] [facility], [place], [address], [facility] - [facility] 05/10/2017 15:52:58 11/24/19 17 Nebulizer tx completed Nahed Ceballos PA-C Attn: Accounting,[address] [facility], [place], [address], [facility] - [facility] 11/24/2016 13:43:49 11/17/19 17 Nebulizer tx completed Nahed Ceballos PA-C Attn: Accounting,[address] [facility], [place], [address], [facility] - [facility] 11/17/2016 09:14:16 09/07/20 16 Nebulizer tx completed Nahed Ceballos PA-C Attn: Accounting,[address] [facility], [place], [address], [facility] - [facility] 09/07/2016 09:57:51 07/05/20 16 Wrist Surgery completed Nahed Ceballos PA-C Attn: Accounting,[address] [facility], [place], [address], [facility] - [facility] 10/19/2018 10:22:28 07/12/20 14 Colonoscopy completed Nahed Ceballos PA-C Attn: Accounting,[address] [facility], [place], [address], [facility] - [facility] 11/23/2016 14:49:32 Joint Replacement completed Nahed garcia PA-C Attn: Accounting,[address] [facility], [place], [address], [facility] - [facility] 11/23/2016 14:55:02 Breast Surgery completed Dakota De Leon [facility] 09/04/2015 11:27:43 Mastectomy completed Joan Jose MA [facility] 09/04/2015 11:03:09 Appendectomy completed Dakota De Leon [facility] 09/04/2015 11:28:41 Imaging Results None recorded. [...] Available Not Available Not Available vitamin d 65507 unit caps active Not Available Not Available No t Available afluria pf .5 ml raji active Not Available Not [...] Alicia Not Available Not Available Not Available meclizine 25 mg tablet TAKE 1 TABLET BY MOUTH THREE TIMES DAILY active Not Available Not Available No t Available Cartia XT 120 mg capsule,e xtended [...] e 50 mcg/actua tion nasal spray,trice pension [place] 1 spray every day by intranas al route as needed. 08/22 completed Not Available Not Available Not Available doxycycli ne hyclate 100 mg tablet TAKE 1 TABLET BY MOUTH TWICE DAILY WITH MEALS 08/22 completed Not Available Not Available Not Available amoxicill in 875 mg-potass ium clavulana te 125 mg tablet TAKE 1 TABLET BY MOUTH EVERY 12 HOURS 04/06 completed Not Available Not Available Not Available [...] tablet twice a day by oral route. 04/13 completed eliquis, changed in hospital Not Available Not Available Not Available Eliquis 5 mg tablet TAKE 1 TABLET BY MOUTH TWICE DAILY active Not Available Not Available No t Available Jardiance 10 mg tablet TAKE 1 TABLET BY MOUTH ONCE DAILY active Not Available Not Available No t Available Afluria 5018-2518 (PF) 45 mcg (15 mcg x 3)/0.5 mL IM syringe active Not Available Not Available Not Available Vitals Date Recorded Respiratory rate Systolic And Diastolic Provider Name and Address Organization Details Last Updated DateTime 01/25/2025 18 /min 120/80 mm[Hg] ANA Wilson Attn: Accounting,[address] [place], [address], [place] - [facility] 01/25/2025 14:21:31 Date Recorded Body height Body mass index (BMI) Body weight Heart rate Oxygen saturation Oxygen saturation in Arterial blood by Pulse oximetry Systolic And Diastolic Provider Name and Address Organization Details Last Updated DateTime 165.1 cm 30.6 kg/m2 58162.3 6 g 90 /min 91 % 91 % 132/90 mm[Hg] Lucius Perez [facility] 14:04:30 Date Recorded Respiratory rate Systolic And Diastolic Provider Name and Address Organization Details Last Updated DateTime 02/19/2025 18 /min 130/80 mm[Hg] ANA Wilson Attn: Accounting,[address] [place], [address], [facility] 02/19/2025 12:54:12 Date Recorded Body height Body mass index (BMI) Body weight Oxygen saturation Oxygen saturation in Arterial blood by Pulse oximetry Heart rate Systolic And Diastolic Provider Name and Address Organization Details Last Updated DateTime 165.1 cm 29.6 kg/m2 35341.4 4 g 97 % 97 % 70 /min 142/80 mm[Hg] Dax Bazan [facility] 12:22:43 Date Recorded Systolic And Diastolic Provider Name and Address Organization Details Last Updated DateTime 03/05/2025 122/70 mm[Hg] ANA Wilson Attn: Accounting,[address] [place], [address], [facility] 03/05/2025 12:37:13 Date Recorded Body height Body mass index (BMI) Body weight Respiratory rate Oxygen saturation Oxygen saturation in Arterial blood by Pulse oximetry Heart rate Systolic And Diastolic Provider Name and Address Organization Details Last Updated DateTime 165.1 cm 30 kg/m2 25907.6 3 g 18 /min 96 % 96 % 70 /min 138/72 mm[Hg] Dax Bazan [facility] 12:16:21 Date Recorded Systolic And Diastolic Provider Name and Address Organization Details Last Updated DateTime 04/06/2025 120/70 mm[Hg] ANA Wilson Attn: Accounting,[address] [place], [address], [facility] 04/06/2025 16:02:39 Date Recorded Body height Body mass index (BMI) Body weight Oxygen saturation Oxygen saturation in Arterial blood by Pulse oximetry Heart rate Systolic And Diastolic Provider Name and Address Organization Details Last Updated DateTime 06/13/202 5 165.1 cm 30.1 kg/m2 35359.2 2 g 98 % 98 % 63 /min 118/82 mm[Hg] Dax Bazan [facility] 5 15:35:08 Date Recorded Systolic And Diastolic Systolic And Diastolic Provider Name and Address Organization Details Last Updated DateTime 09/25/2024 130/82 mm[Hg] 132/84 mm[Hg] ANA Wilson Attn: Accounting,[address] [place], [address], [facility] 09/25/2024 14:27:51 Date Recorded Body height Body mass index (BMI) Body weight Respiratory rate Oxygen saturation Oxygen saturation in Arterial blood by Pulse oximetry Heart rate Systolic And Diastolic Provider Name and Address Organization Details Last Updated DateTime 4 165.1 cm 30.6 kg/m2 77607 g 18 /min 96 % 96 % 73 /min 160/82 mm[Hg] Dax Bazan [facility] 4 14:09:58 Social History Question Answer Notes LastModified by [employer] ion Details LastModified Time Tobacco Smoking Status Former Smoker quit in nov 2024 Lenore schwarz, [facility] 02/20/2025 12:16:05 Do You Have An [...] Date Of Your Most Recent Tobacco Screening? 04/06/2025 Information not available 04/06/2025 How Many Children Do You Have? 0 [...] What Date Was Tobacco Cessation Counseling Provided? 04/06/2025 Information not available 04/06/2025 How Many Years Have You Smoked Tobacco? [...] Y Atrial Fibrillation N Breast Cancer Y Kidney or Bladder Problems N Thyroid Problems N COPD Y Depression N GI Problems Y Lung Disease Y Blood Clots N Acne N Skin Problems Y Eating Disorder N Anemia Y Anesthesia Complications N Heart Attack (MS) N Headaches/Migraines N Ovarian Cancer N Diabetes [...] formulation 3 completed Not Available [facility] 04/06/2025 14:53:25 pneumococcal, unspecified formulation 3 completed Not Available [facility] 04/06/2025 14:53:25 COVID-19, mRNA, LNP-S, PF, 30 mcg/0.3 mL dose 1 completed Not Available [facility] 04/06/2025 14:53:25 COVID-19, mRNA, LNP-S, PF, 30 mcg/0.3 mL dose 1 completed Not Available [facility] 04/06/2025 14:53:25 pneumococcal polysaccharide PPV23 2 completed Joan Jose [place] null, [place] - [facility] 09/04/2015 11:03:09 Influenza, split virus, trivalent, preservative 5 completed Dakota De Leon null, [place] [facility] 09/04/2015 11:30:14 Influenza, high-dose, trivalent, PF 4 completed ANA Wilson Attn: Accounting,[address] [place], [address], [facility] - [facility] 08/22/2024 10:28:48 Tdap 5 completed Not Available [facility] 11/11/2019 02:29:59 Past Encounters Encounter ID Performer Location Encounter Start Date Encounter Closed Date Diagnosis/Indication Diagnosis SNOMED-CT Code Diagnosis ICD10 Code Diagnosis Note [id number] MD Genie Lópezhalto (Adult Med) [address] [place] [address] 09/04/2015 10:33:47 09/04/2015 12:00:54 Essential hypertension 21369696 I10 Blood pressure well controlled . Continue same medication s. Low salt diet and regular exercise advised. Hyperlipidemia 41043477 E78.2 Continue Lovastatin Panic disorder 471094591 F41.0 Well controlled with Citalopram . History of malignant neoplasm of breast 012239218 Z85.3 B/L Mastecotmy and b/l breast implants. Vitamin D deficiency 347 25026 E55.9 Administra tion of diphtheria, pertussis, and tetanus vaccine 241289062 Z23 [id number] MD Genie Lópezhalto (Adult Med) [address] [place] [address] 12/05/2015 13:47:42 12/06/2015 16:24:32 Essential hypertension 88913646 I10 Blood pressure well controlled . Continue same medication s. Low salt diet and regular exercise advised. Pain of oulder region 62017730 M25.511 X ray right shoulder. Refer to Physical therapy Hyperlipidemia 12516907 E78.2 LDL well controlled . Continue Lovastatin Vitamin D deficiency 347 97561 E55.9 Continue Vitamin D 50,000 units once weekly. Tired 543471615 R53.83 c/o tiredness. Check TSH. Hyperglycemia 99668780 R 73.9 Patient will do repeat fasting blood sugar and HBA1C. [id number] JIM Hallhalto (Adult Med) [address] [place] [address] 09/07/2016 08:48:53 09/10/2016 16:17:03 Essential hypertension 66408636 I10 fair control with Cartia, did not take med this AM Hyperlipidemia 68187559 E78.5 recently evaluated by cardiology Hyperglycemia 67049890 R 73.9 Vitamin D deficiency 347 19111 E55.9 cont vit D supplement 50,000 iu weekly Pain of oulder region 20152308 M25.512 possible tendinitis s/p wrist fracture, follow up with ortho on 09/23 as scheduled Syncope and collapse 309 110173 R55 multiple episodes, negative cardiac cath. possible vasovagal w/ cough; possible TIA one year ago. Lesion of skin of face 4023955869 06 L98.9 cyst type lesion to center forehead by hair line s/p fall in March Chronic ob structive pulmonary disease 08386307 J44.9 J44.1 had PFT done & started on inhalers by cardiology . Not using albuterol, but increased symbicort instead [id number] JIM Hall (Adult Med) [address] [place] [address] 11/17/2016 08:10:08 11/17/2016 11:16:35 Syncope and collapse 698752747 R55 No syncopal episode since last visit. Cont to follow with cardiology with loop recordings . Recommend seeing neurology if cardiology workup is negative & pt continues to feel faint. Essential hypertension 74791997 I10 Did not take meds yet this AM. Generalize d osteoarthritis 546768675 M15.9 Cont to follow w/ ortho and physical therapy. Acute exac erbation of chronic obstructive pulmonary disease 583965549 J44.1 Improved aeration w/ albuterol nebulizer. Pt concerned w/ possible polyp in right nares. If not improvemen t with flonase, will refer to ENT. Iron defic iency anemia 07117527 D50.9 receiving iron infusions, last treatment tomorrow. Repeat CBC and iron levels in a few months. Need to sign med records release for Dr. Castro's office. Bone densi ty below reference range 360738297 R93.7 Will get Bone density results from [facility]. Has been over a year now since that study. [id number] JIM Hall (Adult Med) [address] [place] [address] 11/24/2016 11:44:13 11/24/2016 15:47:36 Acute exacerbation of chronic obstructive pulmonary disease 568403040 J44.1 persistent cough, discussed using symbicort only BID and ok to use albuterol Q4h PRN. Start medrol sameer for persistent coughing spasms, diminished air movement not improving w/ inhaled steroids. completed z-pack over the weekend Influenza vaccine needed 6950441996 106 Z23 hold for now due to illness, will give at f/u visit Osteoporosis 89586499 M8 1.0 of spine, discussed findings with patient. repeat bone density late May/Jun 2017. Talk w/ ortho and find out if ok to start fosomax after hardware is removed. Screening for malignant neoplasm of breast 056684726 Z12.31 [id number] JIM Hall (Adult Med) [address] [place] [address] 12/08/2016 13:50:36 12/08/2016 16:54:20 Chronic obstructive pulmonary disease 98567590 J44.9 J44.1 Improved, cont PRN mucinex & inhalers Onychomyco sis of toenails 143763167 B35.1 Rt great toe nail Pain in left foot 665381 4377 77875 M79.672 3rd toe radiating into lateral lower leg w/ weight bearing, see podiatry Syncope and collapse 309 601488 R55 No syncopal episode since last visit. loop recordings negative for cardiac cause of syncope. Recommend seeing neurology, reprinted referral contact info for patient Body mass index 30+ - obesity 018245652 Z68.39 patient encouraged to lose weight to help w/ back & joint pains. discussed core strengthen ing exercises. Osteoporosis 19429292 M8 1.0 of spine, recommend she talk w/ ortho and find out if ok to start fosomax after hardware is removed. Pain of sh oulder region 70988973 M25.512 rec'd injection, hasn't been able to see PT due to work schedule. Given AAOS shoulder conditioni ng exercises to start at home until she can see PT. [id number] JIM Hall (Adult Med) [address] [place] [address] 04/08/2017 10:02:22 04/12/2017 13:48:18 Screening for malignant neoplasm of breast 278560593 Z12.31 Abdominal pain 17572191 R10.9 dwp that abdominal sxs are concerning and not sure when CT abdomen ordered by cardioloog y will be approved, recommend she get abd x-ray to r/o partial SBO. Strongly encouraged her to see GI even w/o the CT abd results due. STOP ibuprofen use especially w/ history of severe reflux. Depressive disorder 2607 8931 F33.1 Pt counseled that bereavemen t depressive sxs are normal over her dog, increase citalopram for a short term while she is going through bereavemen t and mutliple health issues that are still being worked up. Osteonecrosis of hip 444 884358 M87.859 ortho evaluated & not a hardware problem but patient continues to have pain with walking. Will need to get records & CT of the hip from ortho, she was dx with bursitis and given steroid injection in October and completed PT, but pain persists. (Dr. Hedrick) Osteoporosis 07012656 M8 1.0 Ortho is ok wth her starting fosomax if needed. She cont to take calcium and vitamin D supplement s. Screening for malignant neoplasm of cervix 974300775 Z12.4 Administra tion of viral vaccine 94885651 Z23 [id number] JIM Hall (Adult Med) [address] [place] [address] 05/10/2017 15:19:26 05/10/2017 16:19:20 Chronic obstructive pulmonary disease 55417946 J44.1 restart symbicort, was controlled on that medication . improved aeration & rhonchi after nebulizer tx, slightly dizziness upon standing after tx. Syncope and collapse 309 666543 R55 No syncopal episode since last visit. loop recordings negative for cardiac cause of syncope. normal ECHO, mild diastolic dysfunctio n Obstructiv e sleep apnea syndrome 92915569 G47.33 Osteoporosis 05120628 M8 1.0 Ortho is ok wth her starting fosomax if needed. She cont to take calcium and vitamin D supplement s. Essential hypertension 56861610 I10 controlled after cardiology compressio n tx. cont current meds. Hyperglycemia 75827025 R 73.9 reviewed 02/2017 labs w/ patient, A1c is high 6.1% for non-diabet ic, she only eats one meal a day and denies eating sweets but she does like bread, chooses whole grain. Tobacco user 317187139 Z 72.0 patient again advised to quit smoking, has deferred any assistance . Body mass index 30+ - obesity 662925627 Z68.32 c/o difficulty losing weight, discussed increasing metabolism by eating more small meals a day rather than just one meal a day. cont to choose low fat, low sugar foods. [id number] MD Arnaldo Hua (IT ARCHITECT) [address] [place] [address] 06/10/2017 11:20:21 09/27/2017 16:27:33 Gynecologic examination 47697866 Z01.411 Last pap 1990. Pap done. Screening for malignant neoplasm of breast 414398732 Z12.31 UTD Screening for malignant neoplasm of colon 255968403 Z12.11 UTD Screening for malignant neoplasm of respiratory tract 565796831 Z12.2 Obesity 938646170 E66.9 Nutrition and exercise discussed. Smoker 47351077 F17.200 Cessation discussed. Pt. does not want to quit. See above for lung cancer screening. [id number] [facility] [address] [place] [address] 10/07/2017 10:51:50 10/11/2017 15:31:33 Rib pain 670037428 R07.81 right side, persistent now causing her to stop activities . Neg CT abdomen this past year Syncope and collapse 309 265343 R55 Syncope in Jun. Negative cardiac w/u. discussed likely vasovagal reaction. She deferred neurology evaluation at this time. Neg head CT. Spasm 08022487 R25.2 ribs/torso area. Essential hypertension 30495418 I10 controlled after cardiology compressio n tx. cont current meds. Cont to monitor BP at home. [id number] [facility] [address] [place] [address] 01/12/2018 11:31:25 01/12/2018 17:13:47 Dysuria-frequency syndrome 5908970 R30.0 sxs for past week, UA showed trace LE, recommend getting culture prior to considerin g antibiotic s Abdominal pain 34546374 R10.11 R10.31 R10.12 multiple locations progressiv camron getting worse, worrisome for diverticul itis w/ known diverticul osis on colonoscop y Syncope and collapse 309 305679 R55 Has had 3-4 syncopal episodes since last visit in September, usually preceded by cough. To see neurology January 25. Cardiology w/u negative. Complainin g of - melena 782840934 K92.1 check CBC, cont to monitor BMs. History of anemia - iron deficient 288972800 Z86.2 repeat labs w/ report of dark stools in recent weeks Body mass index 30+ - obesity 072879626 Z68.33 working on weight loss using [employer]. Neuropathy 457264326 G62 .9 c/o toes on both feet w/ mild numbness in last few months. h/o hyperglyce val, worried about DM Gastroesop hageal reflux disease without esophagitis 475992832 K21.9 cont PPI. may need repeat EGD/colono scopy if signs of anemia on labs w/ reported few episodes of dark stools. Diverticular disease [address] scan to r/o acute infection w/ diffuse tenderness on exam and worsening pain over the last several seeks. Essential hypertension 32436395 I10 controlled after cardiology compressio n tx. cont current meds. Cont to monitor BP at home. Hyperglycemia 77297724 R 73.9 last A1c 6.1%, doing [employer] now. [id number] Ho Riavs MD [facility] (Adult Med) [address] [place] [address] 04/04/2018 08:17:16 04/04/2018 09:44:57 Syncope and collapse 816956388 R55 neurologis t dx her w/ seizures [...] Keppra Gastroesop hageal reflux disease without esophagitis 750524903 K21.9 cont PPI, add PRN ranitidine for breakthrou gh. discussed possible side effect of keppra causing increased nausea, acid production . Also discussed NSAIDs & fosomax causing same. Osteoporosis 43078314 M8 1.0 Cont fosomax for another year, repeat Bone density next year (2019). cont to take calcium and vitamin D supplement s. Essential hypertension 74847918 I10 Pt reports feeling less fatigued when she took break from her meds this past weekend. Discussed need to wean off medication s rather than stopping suddenly. Also need to make sure BP stays controlled prior to stopping any meds. She has f/u with cardiology in the next few weeks, will get labs at that time. [id number] MD Arnaldo White (Adult Med) [address] [place] [address] 05/17/2018 14:47:01 05/18/2018 17:22:18 Chronic obstructive pulmonary disease 50241249 J44.1 advised to decrease symbicort to just 2 puffs BID; decrease ventolin use, start nebulizer up to 4 times a day for current exacerbati on Pulmonary emphysema 8743 3001 J43.2 mild to moderate centrilobu lar noted on CT chest 04/2018. she has stopped smoking since study was done. Leakage of breast implant 031020910 T85.43XA Right breast implant intracapsu lar rupture noted on CT chest. h/o silicone implants done when she was 24yo. Tobacco de pendence in remission 175059185 F17.201 she has quit smoking, she can cont e-cig w/o nicotine PRN Essential hypertension 54440047 I10 restarted her meds, BP is better. still feels tired. she hasn't rec'd full results of her loop recorder yet and has ECHO scheduled in 2 weeks. She would like labs drawn in this clinic, she will call with labs ordered by cardiology Infection of tooth 09978 8007 K04.7 treat w/ abx prior to dental work to correct cracked tooth [id number] MD Genie Whitehalto (Adult Med) [address] [place] [address] 09/19/2018 11:37:59 09/19/2018 14:46:14 Osteoporosis 83250599 M81.0 Pharmacy had not refilled her fosamax, recommend she restart and we can repeat DEXA one year from now since she hasn't taken med since March. Ventricula r tachycardia 18650490 I47.2 Likely cause of her syncopal episodes, [...] ok for pain. Otalgia of right ear 255 1185364 954150 H92.01 restart flonase Essential hypertension 83621540 I10 elevated this AM, hasn't taken meds yet, usually better controlled since she had ECP treatments . She has f/u with cardiology in preparatio n for AICD/pacem do Seizure disorder 3828241 02 G40.909 still taking keppra, possibly related to V-tach Lumbago with sciatica 20 0374996 M54.42 we will revisit once she has had all her cardiology procedures done. Cont home stretches & exercises, Tylenol for pain. [id number] MD Arnaldo White (Adult Med) [address] [place] [address] 11/07/2018 11:45:37 11/07/2018 17:40:11 Essential hypertension 78317526 I10 Better today; no pacemaker placed. EP ablation done Gastroesop hageal reflux disease without esophagitis 332877349 K21.9 cont PPI, and PRN ranitidine for break-thro ugh. discussed possible side effect of keppra causing increased nausea, acid production . Also discussed NSAIDs & fosomax causing same. Vitamin D deficiency 347 37393 E55.9 Cardiology labs showed it was 29. Restart vit D supplement 50,000 iu weekly, recommend goal of 40 or greater w/ her hx of osteoporos is Low back pain 288088422 M54.[address] Higgins for ortho. If he is not able to evaluate or treat her low back, pt will call here for ortho spine referral. Ventricula r tachycardia 48360127 I47.2 s/p EP ablation, she has not been dizzy. But induced a. flutter only. Stopped coumadin; w/ APARICIO we can try reducing CCB to immediate relase 60mg BID dose and possibly wean off med if HR cont to be well controlled . Cont carvedilol . Cardiology f/u not until December or so. Reviewed labs & studies done by cardiology Lumbar radiculopathy [address] Higgins for ortho; radiating into left pelvic area; not sure if left 3rd & 4th toes are from low back. Needs further eval, will start w/ x-rays and see what ortho recommends . [id number] MD Arnaldo White (Adult Med) [address] [place] [address] 02/06/2019 10:53:19 02/07/2019 09:30:13 Ventricular tachycardia 80057878 I47.2 s/p EP ablation, she has not been dizzy since then until the past week. APARICIO also resolved. Essential hypertension 02808993 I10 Controlled ; no pacemaker placed. EP ablation done. Cont carvedilol , diltiazem, hctz Hyperlipidemia 85811838 E78.5 labs were good in Sep. LDL 97, cont statin Chronic ob structive pulmonary disease 55816633 J44.1 no recent exacerbati on; cont current inhalers, advised again to quit smoking Tobacco user 004323626 Z 72.0 patient again advised to quit smoking, has deferred any assistance . she will consider vaping w/ decreased nicotine. Dizziness 882240374 R42 Had greatly improved when she had cardiac ablation done. Current sxs possibly due to allergies, restart flonase. She had to reschedule f/u with neurology. Seasonal a llergic rhinitis 898180974 J30.2 restart flonase Pruritic disorder 523574 002 L29.9 to right ear, try few drops of witch vipul oil at bedtime to right ear. Spinal pankaj nosis of lumbar region 78384309 M48.061 Reviewed MRI results w/ pt. disc [...] gets benefit w/o sedating effects of THC. [id number] Kendall Magana MD [facility] [address] [place] [address] 08/22/2024 08:53:10 08/22/2024 10:47:59 Obesity 139239325 E66.9 discussed healthy diet, exercise, controllin g carbohydra edinson and added sugars in the diet Body mass index measurement declined 4964325505 37365 Z53.20 Patient declined weight today Chronic ob structive pulmonary disease 61193235 J44.9 Patient is stable on Symbicort and albuterol therapy Benign ess ential hypertension 6854221 I10 Boost to valsartan 80mg daily. BP is elevated 140/90 today. Refill hydrochlor othiazide 12.5 mg daily Hyperlipidemia 14415108 E78.5 Restart lovastatin 20 mg daily and check fasting lipid panel Mixed anxi ety and depressive disorder 827121613 F41.8 Refill citalopram 40 mg daily. Patient is stable Seizure disorder 7139006 02 G40.909 Patient is taking Keppra and follows with Neurology. She is unsure of how long it has been since she has had seizures. Greater than 6 months but under 2 years since last episode Obstructiv e sleep apnea syndrome 84383363 G47.33 wearing cpap nightly per patient report. Long-term drug therapy 241581446 Z79.891 All labs are due Candidiasis of skin 4988 3006 B37.2 Start intensive nystatin cream topped with powder and fluconazol e treatment course and refer promptly to Dermatolog y for more in-depth management Prediabetes 274357661 R7 3.03 Refill metformin 500 mg daily and check updated insulin and A1c labs Acid reflux 555556291 K2 1.9 Restart omeprazole 40 mg daily for reflux management . She had ran out of the prescripti on refills History of polyp of colon 068893577 Z86.0100 Patient has a history of colon polyps and is due for follow-up procedure Administra tion of influenza vaccine 94325532 Z23 Flu shot given today Positive s creening for depression on PHQ-9 (Patient Health Questionnaire 9) 6371444001 50592 Z13.31 Patient scored a 6 on screening today. Her citalopram is managing her mental health without acute concerns [id number] Kendall Magana MD [facility] [place] [address] [place] [address] 09/25/2024 13:41:52 09/25/2024 14:56:56 Benign essential hypertension 0476386 I10 bp much better on repeat checks today. 130/80 range. valsartan 80mg daily and HCTZ 12.5mg daily. Prediabetes 346279432 R7 3.03 5.8% A1c. Continue metformin 500 mg daily Hyperlipidemia 32674150 E78.5 Continue lovastatin 20 mg daily. Labs are stable repeat again in February Chronic ob structive pulmonary disease 63581580 J44.9 Patient is stable on Symbicort and albuterol therapy Mixed anxi ety and depressive disorder 795524144 F41.8 citalopram 40 mg daily. Patient is stable Acid reflux 618818446 K2 1.9 omeprazole 40 mg daily for reflux management . Symptoms are under good control now that she has restarted PPI therapy Seizure disorder 7801456 02 G40.909 Patient is taking Keppra and follows with Neurology. She is unsure of how long it has been since she has had seizures. Greater than 6 months but under 2 years since last episode Obstructiv e sleep apnea syndrome 07096149 G47.33 wearing cpap nightly per patient report. Obesity 582672273 E66.9 discussed healthy diet, exercise, controllin g carbohydra edinson and added sugars in the diet Long-term drug therapy 827608448 Z79.891 Next set of lab orders given for February History of polyp of colon 967080691 Z86.0100 Patient has a history of colon polyps and is due for follow-up procedure new referral given for [facility] rology because her insurance is not being accepted at [facility] any longer Dizziness 358487620 R42 Proceed with MRI of the brain with and without contrast for increasing ly progressiv e dizziness that is causing imbalance and difficulty staying steady at times. Screening mammography 24 830610 Z12.31 Mammogram order also given for [facility] Body mass index 30+ - obesity 930540907 Z68.30 BMI is 30.6 [id number] Kendall Magana MD [facility] [address] [place] [address] 01/25/2025 13:48:05 01/25/2025 14:42:58 Pain in left foot 2083448130 80169 M79.672 refer to aviation medicine specialist specific now to have solar project coordination specialist consult with her on her foot injury that occurred in 2022. Specifical ly to the foot health center in [place] History of fracture 3910 59120 Z87.81 hx of left traumatic foot fracture from metal frame approx 60 pounds that that directly fell on top of the left foot and fractured bones, and 6 months of walking boot. still in pain constant. [id number] Kendall Magana MD [facility] [employer] [address] [place] [address] 02/19/2025 12:02:57 02/19/2025 16:29:07 Overweight in adulthood with body mass index of 25 or more but less than 30 236921345 E66.3 Z68.29 discussed healthy diet, exercise, controllin g carbohydra edinson and added sugars in the diet Pulmonary embolism 15898 [address] I26[address] for evaluation into coagulopat hy workup. For now patient is taking Eliquis 2.5 mg twice daily Acute deep vein thrombosis of lower limb 9608624112 08 I82.492 Treatment as above Ex-smoker 3131196 Z87.89 1 quite smoking in November after extensive hx of tobacco use. [id number] Kendall Magana MD [facility] [employer] [address] [place] [address] 03/05/2025 11:49:47 03/05/2025 12:42:42 Left ventricular systolic dysfunction 026330042 I51.89 25-35% ejection fraction. Patient is following up formally within the next 2 weeks with Cardiology . They will decide treatment options for her which may include starting something like Entresto Diastolic dysfunction 35 14905 I51.89 also noted on echo Right vent ricular systolic dysfunction 975379132 I51.89 Reviewed on echo Left atria l hypertrophy 077733154 I51.7 Noted Pulmonary embolism 99828 003 I26.99 seeing hematology on wednesday. For now patient is taking Eliquis 2.5 mg twice daily Acute deep vein thrombosis of lower limb 1360538942 08 I82.492 Treatment as above Ex-smoker 3813395 Z87.89 1 quite smoking in November after extensive hx of tobacco use. Obese class I 6068830878 95021 E66.811 discussed healthy diet, exercise, controllin g carbohydra edinson and added sugars in the diet [id number] Kendall Magana MD [facility] [employer] [address] [place] [address] 04/06/2025 14:52:45 04/09/2025 12:14:16 Body mass index 30+ - obesity 332447211 E66.9 BMI is 30.6 Vertigo 843987184 R42 Start meclizine 25 mg 3 times daily Benign ess ential hypertension 5856130 I10 Blood pressure stable 120/70 today with no acute concerns continue medicine. Health Concerns Section Related Observation LastModified by Organization Detai ls LastModified Time None Recorded Concern Status LastModified by Organization Details LastModified Time None Recorded Advance Directives Directive N: Payers Insurance Date Sequence Insurance Name Policy Number Policy Thomas Covered Member ID Thomas Member ID Guarantor Name 04/23/2025 1 [facility] (MEDICARE REPLACEMENT/AD VANTAGE - HMO) [id number] Gates Behrendt [id number] Gates Behrendt 08/22/2024 1 [facility] Gates Behrendt [id number] Gates Behrendt 08/22/2024 1 [facility] PRIOR TO 10/25/20 (HMO) Gates Behrendt [id number] Gates Behrendt 08/22/2024 1 [facility] (MEDICAID HMO) Gates Behrendt [id number] Gates Behrendt 08/22/2024 1 [facility] PRIOR TO 04/24/2021 (MEDICAID REPLACEMENT - HMO) Gates Behrendt [id number] Gates Behrendt Notes Date Note Type Note Provider Name and Address Organization Details Recorded Time 09/25/20 24 text/htm l Anxiety/DepressionReported bypatient.Notes:Patient is [...] is unsure. ANA Wilson Attn: Accounting,[address] [facility], [place], [address], [facility] 09/25/2024 14:46:01 01/26/20 25 text/htm l FootReported bypatient.Notes:Injury to left foot february 17 2023, metal frame fell (60 pounds) on the left foot and broke two bones. in boot for 6 months, had crushed top of foot and nerve damage. Dr. hedrick saw her but doesn't do any pain management or foot focus. DR. Baldwin in [facility] and he completed injections into the foot. still with pain at dorsum of foot, pain is constant and walking is with chronic pain. she wants a referral to see aviation medicine specialist. Her old aviation medicine specialist retired. she wants to stay local for aviation medicine specialist. Dr. Baldwin is stating she needs more treatment, but patient states he is the doctor for work comp. ANA Wilson Attn: Accounting[address] [facility], [place], [address], [facility] 02/18/2025 14:11:53 02/20/20 25 text/htm l Patient [...] quit smoking. ANA Wilson Attn: Accounting,[address] [facility], [place], [address], [facility] 03/04/2025 21:46:03 03/05/20 25 text/htm l Patient presents today because she wants to go over her echocardiogram that the logistics director ordered. Recent HPI: acute DVT of the left lower extremity and bilateral pulmonary embolisms throughout. She is anticoagulated. She is feeling fine, she does feel that shortness of breath has improved since she has been on blood thinner. She is presenting for follow-up. She recently has also quit smoking. ANA Wlison Attn: Accounting[address] [place], [address], [facility] 03/22/2025 22:42:14 04/06/20 25 text/htm l DizzinessReported bypatient.Quality:Patient had quite a bit of vertigo yesterday/dizziness that she reports. She also felt that her blood pressure was low. Today she is feeling some better. Severity:some effect on daily activities;can't support self when standing Duration:intermittent episodes lasting: Onset/Timing:actual date of onset: (Yesterday) Context:smoker;history of heart condition;history of high Blood Pressure Modifying Factors:change in position; rapid movements Alleviating factors:holding still Aggravating factors:bending/stooping; moving head; positional change Associated Symptoms:no double vision; no slurred speech; no blurred vision; no blindness; no eye pain; no hearing loss; no difficulty understanding speech; no earache; no syncope; no loss of consciousness; no headache; no nausea; no vomiting; no weak limbs; no facial numbness; no difficulty with speech; no sensation of heart racing Prior TestsMRI brain and IAC w/AUTUMN Prior opinionPCP ANA Wilson Attn: Accounting[address] [place], [address], [facility] 04/22/2025 15:52:31 OBGyn Episode No OBEpisode recorded.
--- OUTSIDE RECORDS SUMMARY | 2025-04-30 07:04 | XMS_ITS | Encounter Summary ---
Author Organization [facility] Address [address] [place] [address] Care Team Providers Care Telephone Order Dispatcher Name Role Phone Brenda Bowie Primary Care Pr ovider Gutierrez Melendez MD Unavailable [phone] Reason for Visit * Auth/Cert (Routine) Specialty Diagnoses / Procedures Referred By Marina suggs Referred To Contact Diagnoses Encounter for screening colonoscopy History of colonic polyps Encounter for screening colonoscopy [Z12.11] History of colonic polyps [Z86.0100] Procedures MA COLONOSCOPY FLX DX W/COLLJ SPEC WHEN PFRMD COLONOSCOPY Referral ID Status Reason Start Date Expiration Date Visits Re quested Visits Authorized [id number] 1 1 Encounter Details Date Type Department Care Team (Late st Contact Info) Description 04/16/2025 Hospital Encounter [facility] [address] [place] [address] Tye Muir, DO [address] [facility] [address] [place] [address] Social History Tobacco Use Types Packs/Day Years Used Date Smoking Tobacco: Every Day Smokeless Tobacco: Never AUDIT-C Answer Date Recorded Frequency of Alcohol Consumption Not on file 04/12/2025 Q2: How many drinks containi ng alcohol do you have on a typical day when you are drinking? 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 Gender Identity Not on file Sexual Orientation Not on file documented as of this encounter Functional Status documented as of this encounter Plan of Treatment Not on file documented as of this encounter Visit Diagnoses Diagnosis Encounter for screening colonoscopy History of colonic polyps Personal history of colonic polyps documented in this encounter Admitting Diagnoses Diagnosis Encounter for screening colonoscopy History of colonic polyps Personal history of colonic polyps documented in this encounter Care Teams Telephone Order Dispatcher Relationship Specialty Start Date End Date Brenda Bowie PA PCP - General 06/12/20 Gutierrez Melendez MD [address] [place] [address] Consulting Physician Cardiology 02/20/21 documented as of this encounter
--- OUTSIDE RECORDS SUMMARY | 2025-04-30 07:04 | XMS_ITS | Clinical Summary ---
Author Organization [facility] Address [address] [place] [address] Care Team Providers Care Gun Repair Clerk Name Role Phone Brenda Bowie Primary Care Pr ovider Gutierrez Melendez MD Unavailable [phone] Allergies No known active allergies Medications valsartan [...] (01/17/2021): Added automatically from request for surgery [id number] Sustained ventricular tachycardia 11/18/2020 Overview (11/18/2020): Added automatically from request for surgery [id number] Pain in wrist 12/21/2016 Closed fracture of distal end of radius 09/24/20 16 Encounters Date Type Department Care Team Description 04/16/2025 Hospital Encounter [facility] [address] [place] [address] Tye Muir, 04/13/2025 Telephone [facility] Gastroenterology at [address] [place] [address] Talisha Cartwright 03/05/2025 Telephone [facility] Gastroenterology at [address] [place] [address] April Urrutia Prep Instructions 02/23/2025 7:06 AM CDT - 02/23/2025 11:59 PM CDT Hospital Encounter [facility] [address] [place] [address] Encounter for screening mammogram for malignant neoplasm of breast Discharge Disposition: Discharge to home or self care from Last 3 Months Surgical History Surgery Date Site/Laterality Comments ABLATION AUGMENTATION MAMMAPLASTY 10/25/1979 - 10/24/1980 Bilateral MASTECTOMY 10/25/1979 - 10/24/1980 Bilateral pt claims she had mastectomy but still gets mammograms? 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 Brenda PEREZ IMPer MAMMO PROCED URES Final Result from Last 3 Months Insurance [employer] MEDICARE PPO MDCR HMO REF [facility] MEDICARE ADVANTAGE Care Teams Gun Repair Clerk Relationship Specialty Start Date End Date Brenda Bowie PA PCP - General 06/12/20 Gutierrez Melendez MD [facility] [place] [address] [address] Consulting Physician Cardiology 02/20/21
--- OUTSIDE RECORDS SUMMARY | 2025-04-30 07:04 | XMS_ITS | Referral Summary ---
Author Organization [facility] Address [address] [place] [address] Care Team Providers Care Packing Tractor Machine Operator Name Role Phone Brenda Bowie Primary Care Pr ovider Gutierrez Melendez MD Unavailable [phone] Encounters Date Type Department Care Team Description 04/16/2025 Hospital Encounter [facility] [address] [place] [address] Tye Muir, 04/13/2025 Telephone [facility] Gastroenterology at [address] [place] [address] Talisha Cartwright 03/05/2025 Telephone [facility] Gastroenterology at [address] [place] [address] April Urrutia Prep Instructions 02/23/2025 7:06 AM CDT - 02/23/2025 11:59 PM CDT Hospital Encounter [facility] [address] [place] [address] Encounter for screening mammogram for malignant neoplasm [...] (01/17/2021): Added automatically from request for surgery [id number] Sustained ventricular tachycardia 11/18/2020 Overview (11/18/2020): Added automatically from request for surgery [id number] Pain in wrist 12/21/2016 Closed fracture of [...] on file 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 Gender Identity Not on file Sexual Orientation [...] 02/23/2025 7:16 AM CDT Plan of Treatment Not on file Procedures Procedure Name Priority Date/Time Associated Diagnosis [...] Payer ID:[id number] (NAIC) Type:MEDICARE RISK OTHER Address: [address] MDCR HMO REF [facility] MEDIC[facility] Address: [facility] [address] [place] [address] UHC MEDICARE ADVANTAGE [facility] MED[facility] Address: [address] [address] [place] [address] Care Teams Packing Tractor Machine Operator Relationship Specialty Start Date End Date Brenda Bowie PA PCP - General 06/12/20 Gutierrez Melendez MD [address] [place] [address] Consulting Physician Cardiology 02/20/21
--- OUTSIDE RECORDS SUMMARY | 2025-04-30 07:04 | XMS_ITS | Clinical Summary ---
Author Organization [facility] Address [address] [place] [address] Phone Care Team Providers Care Activity Therapy Specialist Name Role Phone Nahed Ceballos Primary Care Provider [phone] Allergies No known active allergies Medications lovastatin [...] times daily. 03/08/2019 Active ergocalciferol (VITAMIN D) 69912 UNIT Capsule Take 1 Cap by mouth [...] Insurance MEDICAID [employer] Care Teams Activity Therapy Specialist Relationship Specialty Start Date End Date Nahed Ceballos PA [address] [address] PCP - General Adult Medicine 03/01/19
--- OUTSIDE RECORDS SUMMARY | 2025-04-30 07:05 | XMS_ITS | Clinical Summary ---
Author Organization [facility] Address [address] [place] [phone] Phone Care Team Providers Care Service Advocate Contact Name Role Phone Kendall Magana MD Primary Care Provider [phone] Allergies No known active allergies Medications budesonide-form [...] Pain, Moderate. Active apixaban (ELIQUIS) 5 mg tabletIndicatio ns:Acute deep vein thrombosis (DVT) of proximal vein of left lower extremity (CMS/HCC) Take 1 Tablet (5 mg) by mouth 2 times daily. 60 Tablet 3 Active Active Problems Problem Noted Date Diagnosed [...] Encounters Date Type Department Care Team Description 04/13/2025 Refill [facility] Oncology and Hematology [facility] [address] [place] [address] Johnathon Osei MD Acute deep vein thrombosis (DVT) of proximal vein of left lower extremity (CMS/HCC) (Primary Dx) 04/12/2025 4:30 PM CDT Telephone Check Up [facility] Oncology and Hematology [facility] [address] [place] [address] Johnathon Osei MD Acute deep vein thrombosis (DVT) of proximal vein of left lower extremity (CMS/HCC) (Primary Dx) 04/10/2025 External Device Data STL ABSTRACTION Provider, Abstract 04/03/2025 Orders Only [facility] Oncology and Hematology [facility] [address] [place] [address] Johnathon Osei MD 03/20/2025 External Device Data STL ABSTRACTION Provider, Abstract 03/20/2025 External Device Data STL ABSTRACTION Provider, Abstract 03/20/2025 External Device Data STL ABSTRACTION Provider, Abstract 03/14/2025 External Device Data STL ABSTRACTION Provider, Abstract 03/13/2025 External Device Data STL ABSTRACTION Provider, Abstract 03/09/2025 2:30 PM CDT Office Visit [facility] Oncology and Hematology [facility] [address] [place] [address] Johnathon Osei MD Acute deep vein thrombosis (DVT) of proximal vein of left lower extremity (CMS/HCC) (Primary Dx) 02/20/2025 External Device Data STL ABSTRACTION Provider, Abstract 02/20/2025 External Device Data STL ABSTRACTION Provider, Abstract 02/20/2025 External Device Data STL ABSTRACTION Provider, Abstract 02/15/2025 12:59 AM CDT - 02/16/2025 12:45 PM CDT Hospital Encounter [facility] [address] [place] [address] Aquiles Sanchez MD Weitzel, MD Vitor Carranza Vikram, MD Acute pulmonary embolism (CMS/HCC) Discharge Disposition: Home or Self Care 02/15/2025 Travel from Last 3 Months Family History Medical History Relation Name Comments Diabetes Father Heart Disease Father Bone Cancer Mother Diabetes Mother Heart Disease Mother Relation Name Status Comments Father Mother Social History Tobacco Use Types Packs/Day Years Used Date Smoking Tobacco: Former Cigarettes 1 48.5 S tarted: 10/25/1976 Smokeless Tobacco: Never Tobacco [...] Care Team (Late st Contact Info) Description 07/20/2025 10:00 AM CDT Office Visit [facility] Oncology and Hematology - Luis Fernando [address] [facility] [address] [place] [address] Johnathon Osei MD [address] [facility] [address] [place] [address] Health Maintenance Due Date Last [...] years 1-dose series) 2014 OSTEOPOROSIS SCREENING 2019 INFLUENZA VACCINE (#1) 2025 4, 08/05/2020, 08/13/2015 PNEUMOCOCCAL VACCINE 50+ YEA RS (3 of 3 - PCV20 or PCV21) 08/05/2025 08/05/2020, 10/25/2011 DTAP/TDAP/TD VACCINES (2 - T d or Tdap) 09/04/2025 09/04/2015 BREAST CANCER SCREENING 02/23/2026 02/23/2025, 02/23 COLORECTAL SCREENING 02/07/2032 02/06/2022, 07/12/20 14 Colorectal Cancer Screening 02/07/2032 Procedures Procedure Name Priority Date/Time Associated Diagnosis [...] - 99 mg/dL 02/16/2025 8:13 AM CDT [facility] SPECIMEN SOURCE, GLUCOSE POC Whole Blood 02/16/2025 8:13 AM CDT [facility] Blood, whole 02/16/2025 8:13 AM CDT 02/16/2025 8:24 AM CDT Dmoingo Adler MD POINT OF CARE TESTING Final Re sult Performing Organization Address [facility] Co de Phone Number [facility]# [id number] [address] [place] [address] * UNFRACTIONATED HEPARIN MONITORING (02/16/2025 6:26 AM CDT) Only the most recent of5 resultswithin the time period is included. Pathologist [facility] ANTI-XA UNFRAC HEP 0.65 See Interpreta tion. IU/mL 02/16/2025 7:09 AM CDT [facility] Hydrocapsule [facility] Blood Venipuncture / Unknown 02/16/2025 6:26 AM CDT 02/16/2025 6:46 AM CDT Narrative [facility] - 02/16/2025 7:09 AM CDT Unfractionated Heparin Therapeutic Range: 0.30-0.70 IU/ml Refer to pharmacy adult heparin protocol for further recommendation. The reference range for this test is specific to the anticoagulant and is not appropriate for monitoring patients on a DOAC protocol. Domingo Adler MD HEMATOLOGY ORDERABLES Final Re sult Performing Organization Address [facility]/ZIP Co de Phone Number [facility] CLAZ# [id number] [address] [place] [address] * CBC WITH DIFFERENTIAL (02/16/2025 6:26 AM CDT) [facility] WBC 8.1 4.0 - 9.8 K/uL 02/16/2025 7:04 AM CDT [facility] - [facility] RBC 4.67 3.90 - 4.90 M/uL 02/16/2025 7:04 AM CDT [facility] - [facility] HEMOGLOBIN 13.9 11.8 - 14.8 g/dL 02/16/2025 7:04 AM CDT [facility] - [facility] HEMATOCRIT 43.6 35.5 - 44.0 % 02/16/2025 7:04 AM CDT [facility] - [facility] MCV 93.4 82.0 - 99.0 fL 02/16/2025 7:04 AM CDT [facility] - [facility] MCH 29.8 27.2 - 32.6 pg 02/16/2025 7:04 AM CDT [facility] - [facility] MCHC 31.9 31.5 - 35.5 g/dL 02/16/2025 7:04 AM CDT [facility] - [facility] RDW 13.1 11.5 - 14.5 % 02/16/2025 7:04 AM CDT [facility] - [facility] RDW-STDEV 44.6 37.1 - 48.7 fL 02/16/2025 7:04 AM CDT [facility] - [facility] PLATELETS 225 140 - 350 K/uL 02/16/2025 7:04 AM CDT [facility] - [facility] MPV 10.1 9.3 - 12.4 fL 02/16/2025 7:04 AM CDT [facility] - . [facility] NEUTROPHILS 62 % 02/16/2025 7:04 AM CDT [facility] - . [facility] LYMPHOCYTES 25 % 02/16/2025 7:04 AM CDT [facility] - . [facility] MONOCYTES 10 % 02/16/2025 7:04 AM CDT [facility] - . [facility] EOSINOPHILS 2 % 02/16/2025 7:04 AM CDT [facility] - . [facility] BASOPHILS 1 % 02/16/2025 7:04 AM CDT [facility] SERVICES - . [facility] IMMATURE GRANULOCYTES 0 % 02/16/2025 7:04 AM CDT [facility] - [facility] NEUTROPHIL ABSOLUTE 5.00 1.90 - 7.00 K/uL 02/16/2025 7:04 AM CDT [facility] LYMPHOCYTE ABSOLUTE 2.06 0.70 - 4.50 K/uL 02/16/2025 7:04 AM CDT [facility] MONOCYTE ABSOLUTE 0.85 0.10 - 1.30 K/uL 02/16/2025 7:04 AM CDT [facility] - [facility] EOSINOPHIL ABSOLUTE 0.16 0.00 - 0.70 K/uL 02/16/2025 7:04 AM CDT [facility] BASOPHILS ABSOLUTE 0.05 0.00 - 0.20 K/uL 02/16/2025 7:04 AM CDT [facility] - . [facility] IMMATURE GRANULOCYTES ABSOLUTE 0.02 0.00 - 0.03 K/uL 02/16/2025 7:04 AM CDT [facility] - . [facility] Blood Venipuncture / Unknown 02/16/2025 6:26 AM CDT 02/16/2025 6:46 AM CDT Domingo Adler MD HEMATOLOGY ORDERABLES Final Re sult [facility] SERVICES [facility]# [id number] [address] [place] [address] * (ABNORMAL) BASIC METABOLIC PANEL (02/16/2025 6:26 AM CDT) SODIUM 135(L) 136 - 145 mmol/L 02/16/2025 7:23 AM CDT [facility] SERVICES - . [facility] POTASSIUM 4.0 3.5 - 5.0 mmol/L 02/16/2025 7:23 AM CDT [facility] - . [facility] CHLORIDE 103 98 - 107 mmol/L 02/16/2025 7:23 AM CDT [facility] CO2 23 22 - 29 mmol/L 02/16/2025 7:23 AM T [facility] CALCIUM 9.0 8.6 - 10.2 mg/dL 02/16/2025 7:23 AM [facility] BUN 10 8 - 23 mg/dL 02/16/2025 7:23 AM [facility] CREATININE 0.77 0.51 - 0.95 mg/dL 02/16/2025 7:23 AM [facility] Comment:The GFR result is no t clinically significant on patients <18 or >70 years of age. GLUCOSE 108(H) 74 - 99 mg/dL 02/16/2025 7:23 AM [facility] GFR >60 mL/min/1.7 3 sq meter 02/16/2025 7:23 AM [facility] Comment:eGFR calculated with 2020 CKD-EPI equation. Vegetarian diet, extremely high or low muscle mass, and may affect results. Cystatin C with Glomerular Filtration Rate is a suitable alternative for these patients. ANION GAP 9 8 - 16 mmol/L 02/16/2025 7:23 AM T [facility] Blood Venipuncture / Unknown 02/16/2025 6:26 AM CDT 02/16/2025 6:46 AM CDT us Domingo Adler MD CHEMISTRY ORDERABLES Final Res ult [facility] [id number] [address] [place] [address] * ECHOCARDIOGRAM W/ CONTRAST AGENT (02/15/2025 1:18 PM CDT) EJECTION FRACTION 45 INTERFACE SYSTEM 02/15/2025 12:4 1 PM CDT Narrative INTERFACE SYSTEM - 02/15/2025 4:44 PM CDT [facility] [address] [place] [address] [email or web address] Transthoracic Echocardiogram Patient: Yajaira Solo Study ID: ECHO COMPLETE - Gender: F : 1955 Age: 69 Race: JASIEL Height 167.6cm Study Date: 02/15/2025 Weight: 84kg Access. #: [id number] BP: *Referring Physician:Ninfa Hernandez Kristopher Andrew *Ordering Physician:* Ninfa Ch business machines teacher: Nurse: Indications: Pulmonary embolism. STUDY CONCLUSIONS: SUMMARY: [...] PM. Prepared and Electronically Authenticated Dino Calderon [id number] Procedure Note Dino Calderon MD - 02/15/[address] [address] [email or web address] Transthoracic Echocardiogram Patient: Yajaira Solo Study ID: ECHO COMPLETE - Gender: F : 1955 Age: 69 Race: [facility] Height 167.6cm Study Date: 02/15/2025 Weight: 84kg Access. #: [id number] BP: *Referring Physician:Ninfa Hernandez, Saji Purvis *Ordering Physician:Ninfa Hernandez business machines teacher: Nurse: Indications: Pulmonary embolism. STUDY CONCLUSIONS: SUMMARY: [...] PM. Prepared and Electronically Authenticated Dino Calderon [id number]:05 us Ninfa Ch MD US ORDERABLES Final Resu lt INTERFACE SYSTEM Refer to clinic/hospital department * PTT (02/15/2025 3:12 AM CDT) PTT 29.8 24.4 - 36.4 seconds 02/15/2025 3:54 AM CDT [facility] Hydrocapsule [facility] Comment: PTT Therapeutic Range: Heparin Level PTT (seconds) <0.10 units/mL <55.8 0.10 - 0.30 units/mL 55.8 - 74.3 0.30 - 0.70 units/mL* 74.3 - 111.2* 0.70 - 1.00 units/mL 111.2 - 138.9 *corresponds to therapeutic range for unfractionated heparin Blood Venipuncture / Unknown 02/15/2025 3:12 AM CDT 02/15/2025 3:31 AM CDT Ninfa Ch MD HEMATOLOGY ORDERABLES Marla chang Result [facility] - [facility] CLIA# [id number] [address] [facility] [address] * CBC WITHOUT DIFFERENTIAL (02/15/2025 3:12 AM CDT) WBC 9.2 4.0 - 9.8 K/uL 02/15/2025 3:48 AM CDT [facility] - [facility] RBC 4.64 3.90 - 4.90 M/uL 02/15/2025 3:48 AM CDT [facility] - [facility] HEMOGLOBIN 13.7 11.8 - 14.8 g/dL 02/15/2025 3:48 AM CDT [facility] - [facility] HEMATOCRIT 42.6 35.5 - 44.0 % 02/15/2025 3:48 AM CDT [facility] - [facility] MCV 91.8 82.0 - 99.0 fL 02/15/2025 3:48 AM CDT [facility] - [facility] MCH 29.5 27.2 - 32.6 pg 02/15/2025 3:48 AM CDT [facility] - [facility] MCHC 32.2 31.5 - 35.5 g/dL 02/15/2025 3:48 AM CDT [facility] - [facility] PLATELETS 232 140 - 350 K/uL 02/15/2025 3:48 AM CDT [facility] - [facility] MPV 10.5 9.3 - 12.4 fL 02/15/2025 3:48 AM CDT [facility] - [facility] RDW 13.2 11.5 - 14.5 % 02/15/2025 3:48 AM [facility] SERVICES - [facility] RDW-STDEV 44.8 37.1 - 48.7 fL 02/15/2025 3:48 AM T [facility] SERVICES - [facility] Blood Venipuncture / Unknown 02/15/2025 3:12 AM CDT 02/15/2025 3:31 AM CDT us Ninfa Ch MD HEMATOLOGY ORDERABLES Marla l Result [facility] SERVICES [facility] CLIA# [id number] [address] [facility] [place] [address] * (ABNORMAL) COMPREHENSIVE METABOLIC PANEL (02/15/2025 3:12 AM CDT) SODIUM 141 136 - 145 mmol/L 02/15/2025 4:22 AM [facility]ORY SERVICES [facility] POTASSIUM 3.5 3.5 - 5.0 mmol/L 02/15/2025 4:22 AM [facility]ORATORY SERVICES [facility] CHLORIDE 105 98 - 107 mmol/L 02/15/2025 4:22 AM [facility] SERVICES [facility] CO2 25 22 - 29 mmol/L 02/15/2025 4:22 AM [facility]ORY SERVICES [facility] CALCIUM 8.8 8.6 - 10.2 mg/dL 02/15/2025 4:22 AM [facility]ORY SERVICES [facility] BUN 10 8 - 23 mg/dL 02/15/2025 4:22 AM [facility] SERVICES [facility] CREATININE 0.89 0.51 - 0.95 mg/dL 02/15/2025 4:22 AM [facility] SERVICES [facility] Comment:The GFR result is no t clinically significant on patients <18 or >70 years of age. GLUCOSE 111(H) 74 - 99 mg/dL 02/15/2025 4:22 AM [facility] SERVICES [facility] TOTAL PROTEIN 6.2(L) 6.7 - 8.6 g/dL 02/15/2025 4:22 AM [facility] ALBUMIN 3.7 3.5 - 5.2 g/dL 02/15/2025 4:22 AM [facility] . [facility] BILIRUBIN TOTAL 0.6 0.2 - 1.1 mg/dL 02/15/2025 4:22 AM [facility] ALKALINE PHOSPHATASE 79 35 - 104 U/L 02/15/2025 4:22 AM [facility] - . [facility] AST 18 <33 U/L 02/15/2025 4:22 AM [facility] - . N[facility] ALT 16 <34 U/L 02/15/2025 4:22 AM [facility] GFR >60 mL/min/1.7 3 sq meter 02/15/2025 4:22 AM [facility] Comment:eGFR calculated with 2020 CKD-EPI equation. Vegetarian diet, extremely high or low muscle mass, and may affect results. Cystatin C with Glomerular Filtration Rate is a suitable alternative for these patients. ANION GAP 11 8 - 16 mmol/L 02/15/2025 4:22 AM [facility] Blood Venipuncture / Unknown 02/15/2025 3:12 AM CDT 02/15/2025 3:31 AM CDT Narrative [facility] - 02/15/2025 4:22 AM T Samples containing indocyanine green cause interferences on Total and/or Direct Bilirubin and must not be measured. us Ninfa Ch MD CHEMISTRY ORDERABLES Final Result [facility]# [id number] [address] [place] [id number] from Last 3 Months Insurance [facility] [id number] RX [employer] Member Subscriber Plan / Payer (Ef fective 2021-Present) Name:Yajaira Solo Relation to Subscriber:Self Name:Yajaira Solo Payer ID:Not on file Group ID:[id number] Type:RX Medicare Part D Address: [place] [employer] Commercial [facility] [id number] Advance Directives For more information, please contact: [phone] * Full Code (Latest Code Status on File) Date Activated Date Inactivated Comments 02/15/2025 2:46 AM 02/16/2025 3:45 PM Care Teams Service Advocate Contact Relationship Specialty Start Date End Date Kendall Magana MD [address] [place] [address] PCP - General Internal Medicine 02/15/25
--- NOTE | 2025-05-01 13:00 | WPDNEUROLOGY ---
Neurology EEG Report General Information Date of Study: 04/30/25 TEST EEG DIAGNOSIS dizziness and headaches. CONDITION OF RECORDING Awake, drowsy and asleep. EEG NUMBER [id number] CLINICAL HISTORY Patient reports that she is dizzy all the time. It will wake her up in the middle of the night and she has able to walk long distances also she always feels as if she is going to fall. She also reported that she has trouble breathing occasionally. EEG DESCRIPTION Basic resting occipital frequency consists of low to medium voltage 9 to 11 hertz per 2nd alpha admixed with low-voltage 15 to 18 hertz per 2nd beta. During drowsiness low-voltage beta activity seen diffusely admixed with waxing and waning posterior alpha rhythm. Photic stimulation produced normal drive. Hyperventilation produced normal and symmetrical buildup. Non paroxysmal. Nonfocal. Nonlateralizing. IMPRESSION Normal record.
--- NOTE | 2025-05-01 14:26 | P.NEURO_ITS ---
Neurology EEG Report General Information Date of Study: 04/30/25 TEST EEG DIAGNOSIS Dizziness with headaches CONDITION OF RECORDING awake, drowsy and asleep , cooperative and understanding. EEG NUMBER [id number] CLINICAL HISTORY Patient reports that she is dizzy all the time. It will wake her up in the middle of the night, she can not walk long distances, and she always feels like she is going to fall. She also stated that she has trouble breathing occasionally. EEG DESCRIPTION Basic resting occipital frequency consists of low to medium voltage 9 to 11 hertz per 2nd alpha admixed with low-voltage 15 to 18 hertz per 2nd beta activi ty. Low-voltage beta activity seen diffusely during drowsiness with waxing and waning posterior alpha rhythm. Bilateral symmetrical sleep activity seen during sleep with symmetrical sleep spindles. Photic stimulation produced normal drive. Hyperventilation not done. Non paroxysmal. Nonfocal. Nonlateralizing. IMPRESSION Normal record.
== END 2025-04-30 07:01 | disposition home or self-care (01) ==
LOC: ANHNEURO 07:02
PROVIDERS: PCP Physician Assistant; Visit Provider Psychiatry & Neurology Neurology
DX: G45.9 Transient cerebral ischemic attack, unspecified (principal); G89.29 Other chronic pain; I49.9 Cardiac arrhythmia, unspecified; G40.909 Epilepsy, unspecified, not intractable, without status epilepticus; R15.9 Full incontinence of feces; Z87.828 Personal history of other (healed) physical injury and trauma
CPT/HCPCS: 72148; 95816

== ENCOUNTER 2025-07-12 11:59 | Outpatient (CLI) | payer MEDICARE, SELFPAY ==
--- NOTE | ~2025-07-12 | US_ITS ---
EXAMINATION:US venous doppler LE LT INDICATION:DVT of the left lower extremity TECHNIQUE: Multiple grayscale, color flow and Doppler images of the left lower extremity deep venous systems were obtained and reviewed. COMPARISON:No prior studies for comparison. FINDINGS: There is persistent deep venous thrombosis of the left femoral, popliteal and posterior tibial veins. Normal flow, compressibility and augmentation in the left common femoral, profunda femoral, peroneal, gastrocnemius and greater saphenous veins. IMPRESSION: 1: Persistent deep venous thrombosis of the left femoral, popliteal and posterior tibial veins. Reviewed, dictated and finalized at location O. IMPRESSION: 1: Persistent deep venous thrombosis of the left femoral, popliteal and posteri or tibial veins.
--- OUTSIDE RECORDS SUMMARY | 2025-07-12 12:04 | XMS_ITS | Clinical Summary ---
Author Organization [facility] Address [address] [place] [address] Phone Care Team Providers Care Control Room Agent Name Role Phone Nahed Ceballos Primary Care Provider [phone] Allergies No known active allergies Medications lovastatin [...] times daily. 03/08/2019 Active ergocalciferol (VITAMIN D) 60123 UNIT Capsule Take 1 Cap by mouth [...] PCV) 10/26/2013 10/26/2012, 10/25/2011 Influenza Immunization (#1) 06/25/202507/26, 08/03/2015, 10/26/2012 SARS-COV-2 Immunization (3 - season) 2025 01/18/2021, 12/19/2020 Respiratory Syncytial Virus (RSV) Immunization [...] Insurance MEDICA[employer] Care Teams Control Room Agent Relationship Specialty Start Date End Date Nahed Ceballos PA [address] [address] PCP - General Adult Medicine 03/01/19
--- OUTSIDE RECORDS SUMMARY | 2025-07-12 12:04 | XMS_ITS | Clinical Summary ---
Author Organization [facility] Address [address] [place] [address] Care Team Providers Care Accountancy Professor Name Role Phone Zachary New MD Primary Care Provider Source Comments [facility],non-owned Affiliates and Associated Physician Practices is amultiple site organization consisting of ambulatory clinics and hospital sitesin [place], [place], [place] and [place]. This disclosure is being madepursuant to the Care Everywhere program and may not contain all information available regarding this patient. Last updated 18.[facility] WISErg Allergies No known active allergies Medications * Be aware that medications may not be up to date on this document. Alwaysverify current medications with the patient. 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
--- OUTSIDE RECORDS SUMMARY | 2025-07-12 12:04 | XMS_ITS | Encounter Summary ---
Author Organization [facility] Healthcare Address [address] [place] [address] Care Team Providers Care Circular Saw Operator Name Role Phone Brenda Bowie Primary Care Pr ovider Gutierrez Melendez MD Unavailable [phone] Reason for Visit * Auth/Cert (Routine) Specialty Diagnoses / Procedures Referred By Marina suggs Referred To Contact Diagnoses Encounter for screening colonoscopy History of colonic polyps Encounter for screening colonoscopy [Z12.11] History of colonic polyps [Z86.0100] Procedures [place] COLONOSCOPY FLX DX W/COLLJ SPEC WHEN PFRMD COLONOSCOPY Referral ID Status Reason Start Date Expiration Date Visits Re quested Visits Authorized [id number] 1 1 Encounter Details Date Type Department Care Team (Late st Contact Info) Description 04/16/2025 Hospital Encounter [facility] 1 [place] [address] Tye Muir, DO [address] [facility] [address] [place] [address] Social History Tobacco Use Types Packs/Day Years [...] on file 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
--- OUTSIDE RECORDS SUMMARY | 2025-07-12 12:04 | XMS_ITS | Clinical Summary ---
Author Organization [facility] Address [address] [place] [address] Care Team Providers Care Stringed Instrument Tuner Name Role Phone Brenda Bowie Primary Care Pr ovider Gutierrez Melendez MD Unavailable [phone] Allergies No known active allergies Medications valsartan [...] (01/17/2021): Added automatically from request for surgery [id number] Sustained ventricular tachycardia 11/18/2020 Overview (11/18/2020): Added automatically from request for surgery [id number] Pain in wrist 12/21/2016 Closed fracture of distal end of radius 09/24/20 16 Encounters Date Type Department Care Team Description 04/16/2025 Hospital Encounter [facility] 1 [place] [address] Tye Muir DO 04/13/2025 Telephone [facility] G[facility]ology at [place] [address] [facility] [address] [place] [address] Talisha Cartwright from Last 3 Months Surgical History Surgery [...] SEYMOUR (obstructive sleep apnea) DM (diabetes mellitus) Adenomatous colon polyp VT (ventricular tachycardia) Pulmonary hypertension (HCC) A-fib (HCC) Atrial flutter [...] on file 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 Gender Identity Not on file Sexual [...] Fall Risk Assessment 02/20/2022 02/20/2021 Influenza Vaccine (#1) 2025 5, 08/03/2015, 10/26/2012 Pneumococcal vaccine 65+ (3 of [...] neoplasm of breast from Last 3 Months or Most Recently Relevant to Health Maintenance Results * Screening Mammogram Bilateral W Carloz [...] URES Final Result from Last 3 Months or Most Recently Relevant to Health Maintenance Insurance [employer] CHOICE MEDICARE PPO [address] MDCR HMO REF [facility] [place] [facility] Address: [address] [address] [place] [address] [facility] [place] [employer] Address: [address] [address] [place] [address] Care Teams Stringed Instrument Tuner Relationship Specialty Start Date End Date Brenda Bowie PA PCP - General 06/12/20 Gutierrez Melendez MD [address] [place] [address] Consulting Physician Cardiology 02/20/21
--- OUTSIDE RECORDS SUMMARY | 2025-07-12 12:05 | XMS_ITS | Clinical Summary ---
Author Organization [facility] Address [address] [place] [address] Phone Care Team Providers Care Felt Dyeing Machine Tender Name Role Phone Kendall Magana MD Primary Care Provider [phone] Allergies No known active allergies Medications budesonide-form [...] Encounters Date Type Department Care Team Description 06/12/2025 External Device Data STL ABSTRACTION Provider, Abstract 05/30/2025 External Device Data STL ABSTRACTION Provider, Abstract 05/30/2025 Telephone [facility] Oncology [facility] [address] [place] [address] Johnathon Osei MD Surgery Questions 05/29/2025 External Device Data STL ABSTRACTION Provider, Abstract 05/09/2025 External Device Data STL ABSTRACTION Provider, Abstract 05/08/2025 External Device Data STL ABSTRACTION Provider, Abstract 04/13/2025 Refill [facility] [address] [place] [address] Johnathon Osei MD Acute deep vein thrombosis (DVT) of proximal vein of left lower extremity (CMS/HCC) (Primary Dx) 04/12/2025 4:30 PM CDT Telephone Check Up [facility] [address] [place] [address] Johnathon Osei MD Acute deep vein thrombosis (DVT) of proximal vein of left lower extremity (CMS/HCC) (Primary Dx) from Last 3 Months Family History Medical History Relation Name Comments Diabetes Father Heart Disease Father Bone Cancer Mother Diabetes Mother Heart Disease Mother Relation Name Status Comments Father Mother Social History Tobacco Use Types Packs/Day Years Used Date Smoking Tobacco: Former Cigarettes 1 48.7 S tarted: 10/25/1976 Smokeless Tobacco: Never Tobacco [...] Description 07/20/2025 10:00 AM CDT Office Visit [facility] Oncology and Hematology - [place] [address] [facility] [address] [place] [address] Johnathon Osei MD [address] [facility] [address] [place] [address] Health Maintenance Due Date Last [...] 02/06/2022, 07/12/20 14 Colorectal Cancer Screening 02/07/[address] [place] [place] [id number] RX [employer] RX Member Subscriber Plan / Payer (Ef fective 2021-Present) Name:Jose Mkeon Gates Relation to Subscriber:Self Name:José Luis Soloy Payer ID:Not on file Group ID:[id number] Type:RX Medicare Part D Address: [address] [employer] Commercial [facility] [id number] Advance Directives For more information, please contact: [phone] * Full Code (Latest Code Status on File) Date Activated Date Inactivated Comments 02/15/2025 2:46 AM 02/16/2025 3:45 PM Care Teams Felt Dyeing Machine Tender Relationship Specialty [place] [address] [place] [id number] PCP - General Internal Medicine 02/15/25
== END 2025-07-12 12:00 | disposition home or self-care (01) ==
PROVIDERS: PCP Physician Assistant; Visit Provider Internal Medicine Hematology & Oncology
DX: I82.4Y2 Acute embolism and thrombosis of unspecified deep veins of left proximal lower extremity (principal)
CPT/HCPCS: 93971

== ENCOUNTER 2025-08-06 14:25 | Outpatient (CLI) | payer MEDICARE, SELFPAY ==
--- NOTE | 2025-08-06 14:40 | ECHO_ITS ---
Patient Info Name: Yajaira Solo Age: 70 years : 1955 Gender: Female Ht: 64 in Wt: 180 lbs BSA: 1.95 m2 HR: 60 bpm BP: 132 / 82 mmHg Heart Rhythm: Sinus Rhythm Technical Quality: Fair Exam Date: 08/06/2025 3:11 PM Patient Status: O Admit Date: 08/06/2025 Exam Type: CA echo dop color flow w con Complete two-dimensional, color flow and Doppler transthoracic echocardiogram is performed with contrast to opacify the left ventricle and to improve the deliniation of the left ventricle endocardial borders. Tumblers Supervisor: Kathy Quijano Attending Provider: Donald Laird DO Contrast/Agitated Saline Contrast/Ag. Saline: Definity Amount: 3.00 ml Administered By: Kathy Quijano New IV Access: Left Site Condition: IV removed Summary 1. Definity contrast administered improved wall motion interpretation. 2. Left ventricular chamber dimension is mildly enlarged. 3. Left ventricular systolic function is normal, estimated at 55-60. 4. The left ventricular diastolic function is grade I diastolic dysfunction. 5. E/e' 9 is minimally elevated. 6. Left atrial chamber dimension is mildly enlarged. 7. The aortic valve is not well visualized. Cannot determine number of aortic valve leaflets. 8. There is mild aortic valve stenosis based on a peak velocity of 158 cm/s, mean gradient of 4 mmHg, and aortic valve area of 1.6 cm2. 9. No pulmonary hypertension, estimated pulmonary arterial systolic pressure is 15 mmHg. Left Ventricle Definity contrast administered improved wall motion interpretation. Left ventricular chamber dimension is mildly enlarged. Left ventricular systolic function is normal, estimated at 55-60. The left ventricular diastolic function is grade I diastolic dysfunction. E/e' 9 is minimally elevated. Right Ventricle Right ventricular chamber dimension is normal. Right ventricular systolic function is normal. Left Atria Left atrial chamber dimension is mildly enlarged. Right Atria Right atrial chamber dimension is normal. Aortic Valve The aortic valve is not well visualized. Cannot determine number of aortic valve leaflets. There is mild aortic valve stenosis based on a peak velocity of 158 cm/s, mean gradient of 4 mmHg, and aortic valve area of 1.6 cm2. There is no aortic valve regurgitation. Pulmonic Valve There is no pulmonic regurgitation. Mitral Valve There is no mitral valve stenosis. There is no mitral valve regurgitation. Tricuspid Valve There is no tricuspid valve regurgitation. No pulmonary hypertension, estimated pulmonary arterial systolic pressure is 15 mmHg. Pericardium/Pleural There is no pericardial effusion. Inferior Vena Cava Normal inferior vena cava with >50% collapse upon inspiration consistent with normal right atrial pressure, 5 mmHg. Aorta The aortic root size at the sinus of Valsalva is normal. Left Ventricular Outflow Tract Name Value Normal LVOT 2D LVOT Diameter 2.0 cm LVOT Doppler LVOT Peak Velocity 70 cm/s LVOT Peak Gradient 2 mmHg LVOT Mean Gradient 1 mmHg LVOT VTI 15 cm LVOT VTI/AV VTI Ratio 0.5 LVOT Stroke Volume 46 ml LVOT CO 2.5 l/min LVOT CI 1.3 l/min/m2 Pulmonic Valve Name Value Normal RVOT Doppler RVOT Peak Velocity 87 cm/s RVOT Peak Gradient 3 mmHg PV Doppler PV Peak Velocity 109 cm/s PV Peak Gradient 5 mmHg Mitral Valve Name Value Normal MV Diastolic Function MV E Peak Velocity 62 cm/s MV A Peak Velocity 86 cm/s MV E/A 0.7 MV Decel Time (PW) 334 ms MV Annular TDI MV E/e' (Septal) 11.8 MV E/e' (Lateral) 8.1 MV E/e' (Average) 9.9 Tricuspid Valve Name Value Normal TV Regurgitation Doppler TR Peak Velocity 161 cm/s TR Peak Gradient 10 mmHg Estimated PAP/RSVP RA Pressure 5 mmHg <=5 PA Systolic Pressure 15 mmHg <36 RV Systolic Pressure 15 mmHg <36 TV Annular TDI TV Lateral Norma s' Velocity 12.5 cm/s >=9.5 Aorta Name Value Normal Ascending Aorta Ao Root Diameter (MM) 3.8 cm Ao Root Diam Index (MM) 2.0 cm/m2 Aortic Valve Name Value Normal AV Doppler AV Peak Velocity 158 cm/s AV Peak Gradient 10 mmHg AV Mean Gradient 4 mmHg AV VTI 28 cm AV Area (Cont Eq VTI) 1.6 cm2 >=3.0 AV Area (Cont Eq Ziyad) 1.4 cm2 AV DI (Ziyad) 0.44 AV Regurgitation 2D LVOT Area 3.1 cm2 Ventricles Name Value Normal LV Dimensions 2D/MM IVS Diastolic Thickness (2D) 0.7 cm 0.6-1.0 LVID Diastole (2D) 6.2 cm 3.8-5.2 LVIW Diastolic Thickness (2D) 0.7 cm 0.6-0.9 LVID Systole (2D) 4.1 cm 2.2-3.5 LVOT Diameter 2.0 cm LV Mass (2D Cubed) 162.39 g 67.00-162.00 LV Mass Index (2D Cubed) 83 g/m2 43-95 Relative Wall Thickness (2D) 0.22 <=0.42 LV Fractional Shortening/Ejection Fraction 2D/MM LV Fractional Shortening (2D) 34 % 27-45 LV EF (2D Teichholz) 62 % LV Diastolic Volume (4C MOD) 98 ml LV EF (4C MOD) 66 % LV Diastolic Volume (2C MOD) 91 ml LV EF (2C MOD) 62 % LV Diastolic Volume (BP MOD) 99 ml 46-106 LV Diastolic Volume Index (BP MOD) 51 ml/m2 29-61 LV Systolic Volume (BP MOD) 35 ml 14-42 LV Systolic Volume Index (BP MOD) 18 ml/m2 8-24 LV EF (BP MOD) 65 % 54-74 LV Diastolic Length (4C) 7.2 cm LV Systolic Length (4C) 5.7 cm LV Stroke Volume (4C MOD) 64 ml Atria Name Value Normal LA Dimensions LA Dimension (MM) 3.6 cm 2.7-3.8 LA Volume (4C A-L) 38 ml LA Volume (BP A-L) 48 ml RA Dimensions RA Systolic Major [place] Length (4C) 4.7 cm 2.2-2.8 RA Area (4C) 14.4 cm2 <=18.0 Report Signatures
--- OUTSIDE RECORDS SUMMARY | 2025-08-06 15:32 | XMS_ITS | Clinical Summary ---
Author Organization [facility] Address [address] [place] [phone] Phone Care Team Providers Care Service Advocate Contact Name Role Phone Kendall Magana MD Primary Care Provider [phone] Allergies No known active allergies Medications budesonide-form [...] of proximal vein of left lower extremity Take 1 Tablet (5 mg) by mouth [...] Encounters Date Type Department Care Team Description 07/25/2025 4:30 PM CDT Telephone Check Up [facility] Oncology [facility] [address] [place] [address] Johnathon Osei MD Acute deep vein thrombosis (DVT) of proximal vein of left lower extremity (Primary Dx) 07/17/2025 Orders Only [facility] Oncology and [facility] [address] [place] [address] Johnathon Osei MD 06/12/2025 External Device Data STL ABSTRACTION Provider, Abstract 05/30/2025 External Device Data STL ABSTRACTION Provider, Abstract 05/30/2025 Telephone [facility] Oncology [facility] [address] [place] [address] Johnathon Osei MD Surgery Questions 05/29/2025 External Device Data STL ABSTRACTION Provider, Abstract 05/09/2025 External Device Data STL ABSTRACTION Provider, Abstract 05/08/2025 External Device Data STL ABSTRACTION Provider, Abstract from Last 3 Months Family History Medical History Relation Name Comments Diabetes Father Heart Disease Father Bone Cancer Mother Diabetes Mother Heart Disease Mother Relation Name Status Comments Father Mother Social History Tobacco Use Types Packs/Day Years Used Date Smoking Tobacco: Former Cigarettes 1 48.8 S tarted: 10/25/1976 Smokeless Tobacco: Never Tobacco [...] Care Team (Late st Contact Info) Description 11/02/2025 12:45 PM MECHANIC FIELD SERVICE Office Visit [facility] Oncology and Hematology - [place] [address] [facility] [address] [place] [address] Johnathon Osei MD [address] [facility] [address] [place] [address] Health Maintenance Due Date Last [...] years 1-dose series) 2014 OSTEOPOROSIS SCREENING 2019 [place] Prev entative Visit/Annual Wellness Visit 10/25/2024 07/19/2023 INFLUENZA VACCINE (#1) 2025 4, 08/05/2020, 08/13/2015 PNEUMOCOCCAL VACCINE 50+ YEA RS (3 of 3 - PCV20 or PCV21) 08/05/2025 08/05/2020, 10/25/2011 DTAP/TDAP/TD VACCINES (2 - T d or Tdap) 09/04/2025 09/04/2015 BREAST CANCER SCREENING 02/23/2026 02/23/2025, 02/23 COLORECTAL SCREENING 02/07/2032 02/06/2022, 07/12/20 14 Colorectal Cancer Screening 02/07/2032 Procedures Procedure Name Priority Date/Time Associated Diagnosis Comments US VENOUS DOPPLER LEG LEFT Routine 07/12/2025 9:15 AM CDT from Last 3 Months Results * US VENOUS DOPPLER LEG LEFT (07/12/2025 9:15 AM CDT) Anatomical Region Laterality Modality Lower Extremity Ultrasound Johnathon Osei MD US ORDERABLES Final Result from Last 3 Months Insurance RX [employer] RX Member Subscriber Plan / Payer (Ef fective 2021-Present) Name:Yajaira Solo Relation to Subscriber:Self Name:José Luis Soloy Payer ID:Not on file Group ID:[id number] Type:RX Medicare Part D Address: [address] [employer] Commercial [facility] [address] Advance Directives For more information, please contact: [phone] * Full Code (Latest Code Status on File) Date Activated Date Inactivated Comments 02/15/2025 2:46 AM 02/16/2025 3:45 PM Care Teams Service Advocate Contact Relationship Specialty Start Date End Date Kendall Magana MD [address] [place] [address] PCP - General Internal Medicine 02/15/25
--- OUTSIDE RECORDS SUMMARY | 2025-08-06 15:32 | XMS_ITS | Encounter Summary ---
Author Organization [facility] Healthcare Address [address] [place] [address] Care Team Providers Care Qualification Engineer Name Role Phone Brenda Bowie Primary Care Pr ovider Gutierrez Melendez MD Unavailable [phone] Reason for Visit * Auth/Cert (Routine) Specialty Diagnoses / Procedures Referred By Marina suggs Referred To Contact Diagnoses Encounter for screening colonoscopy History of colonic polyps Encounter for screening colonoscopy [Z12.11] History of colonic polyps [Z86.0100] Procedures DE COLONOSCOPY FLX DX W/COLLJ SPEC WHEN PFRMD COLONOSCOPY Referral ID Status Reason Start Date Expiration Date Visits Re quested Visits Authorized [id number] 1 1 Encounter Details Date Type Department Care Team (Late st Contact Info) Description 04/16/2025 Hospital Encounter [facility] 1 [place] [address] Tye Muir, DO [address] [facility] [address] [place] [address] Social History Tobacco Use Types Packs/Day Years [...] on file 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
--- OUTSIDE RECORDS SUMMARY | 2025-08-06 15:32 | XMS_ITS | Clinical Summary ---
Author Organization [facility] Address [address] [place] [address] Care Team Providers Care Cupola Melting Supervisor Name Role Phone Brenda Bowie Primary Care Pr ovider Gutierrez Melendez MD Unavailable [phone] Allergies No known active allergies Medications valsartan [...] (01/17/2021): Added automatically from request for surgery [id number] Sustained ventricular tachycardia 11/18/2020 Overview (11/18/2020): Added automatically from request for surgery [id number] Pain in wrist 12/21/2016 Closed fracture of distal end of radius 09/24/20 16 Surgical History Surgery Date Site/Laterality Comments ABLATION [...] on file 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 MEDICARE ADVANTAGE Care Teams Cupola Melting Supervisor Relationship Specialty Start Date End Date Brenda Bowie PA PCP - General 06/12/20 Gutierrez Melendez MD [address] [place] [address] Consulting Physician Cardiology 02/20/21
--- OUTSIDE RECORDS SUMMARY | 2025-08-06 15:33 | XMS_ITS | Clinical Summary ---
Author Organization [facility] Address [address] [place] [address] Care Team Providers Care Police Detective Name Role Phone Zachary New MD Primary Care Provider Source Comments [facility],non-owned Affiliates and Associated Physician Practices is amultiple site organization consisting of ambulatory clinics and hospital sitesin [place], [place] and [place]. This disclosure is being madepursuant to the Care Everywhere program and may not contain all information available regarding this patient. Last updated 18.[facility] Rontal Applications Allergies No known active allergies Medications * Be aware that medications may not be up to date on this document. Alwaysverify current medications with the patient. 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
--- OUTSIDE RECORDS SUMMARY | 2025-08-06 15:33 | XMS_ITS | Data Portability ---
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 Hopefully that will [...] more than half the time spent in kfwf-ew-hgqt care. Not available 07/30/2023 09:36:56 08/27/2023 08/27/2023 [...] more than half the time spent in pdje-ss-ikoj care. 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 Imaging XR, foot 2023 024 [facility] [place], [address], [place], [id number], 4 18:27:48 XR, foot 2022 023 [email or web address] [facility] [place], [address], [place], [id number], 3 16:04:53 XR, foot 2022 023 [facility] [place], [address], [place], [id number], 3 10:07:11 MAMMO, screening, digital, bilateral 2022 023 [email or web address] Not available 4 10:21:20 LDCT, chest, for lung cancer screening - no auth required 2022 023 DUC Not available 3 10:32:55 Medication Orders nystatin 100,000 unit/gram topical cream 2022 023 [facility], [address], [place], [address], 3 11:01:24 triamcinolo ne acetonide 0.1 % topical cream 2022 023 [facility], [address] [facility], [place], [address], 3 11:01:27 doxycycline hyclate 100 mg tablet [address] [facility], [address] [facility], [place], [address], 3 08:55:18 prednisone 20 mg tablet [address] [facility], [address] [facility], [place], [address], 08:55:27 ergocalcife rol (vitamin D2) 1,250 mcg (50,000 unit) capsule 2022 023 [facility], [address] [facility], [place], [address], 3 11:01:27 Patient TargetsNo targets recorded. Patient Instructions Encounter Date Encounter Id Patient Instructions Last Modified By Organization Details Last Modified Time 07/19/2023 [id number] dementia rating scale-2* [email or web address] Not available 07/19/2023 11:11:55 multi-dimensiona l health assessment questionnaire* [email or web address] Not available 07/19/2023 11:12:00 care plan* [email or web address] Not available 11:11:51 advance directiv es: care instructions Not available 07/19/2023 11:01:17 advance care planning: care instructions Not available 07/19/2023 11:01:17 [place] Advance Directives Not available 07/19/2023 11:01:17 Personalized a [facility] Plan and Screening Recommendations Advance Directives [...] Ordered Cervical/Uterine/Ov maged Cancer Screening: Referral to trout farmer Osteoporosis Screening: Your next DEXA in: 2024 Date Screening Last Performed: Colon Cancer Screening: Colonoscopy In: january 2022 Date Screening Last Performed: Eye Disease Screening: Recommended today Dementia Risk: Low Depression Screening: Positive Active diagnosis, Continue current treatment plan Not available 07/20/2023 14:20:00 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 Referring Physician: Brenda Bowie, Internal Medicine, Encounter Date: 09/02/2023 Results Created Date Observation Date Name Description Value Unit Range Abnormal Flag Note LastModifiedBy Organization Detail LastModifiedTime 06/23/20 23 XR, knee No observ ation record ed. [email or web address] [facility] [place] [address] [facility] [address], [place], [id number], 06/23/2023 09:02:56 07/02/20 XR, foot No observ ation record ed. [facility] [place] [address], [place], [address], 07/05/2023 14:33:19 07/30/20 XR, foot No observ ation record ed. [facility] [place] [address], [place], [id number], 07/30/2023 09:38:31 08/06/2008/06/2023 LDCT, chest , for lung cance r maranda spears No observ ation record ed. [address] [place], [address], 09/02/2023 11:51:49 08/06/2008/06/2023 MAMMO , maranda spears, digit al, bilat eral No observ ation record ed. Not Available 2022 11:51:53 08/24/2008/24/2023 US, liver No observ ation record ed. [facility] [address] [place], [address], 09/02/2023 15:46:10 08/27/20 XR, foot No observ ation record ed. [facility] [place] [address], [place], [id number], 09/06/2023 15:42:20 01/03/20 24 XR, foot No observ ation record ed. [facility] [place] [address], [place], [address], 01/03/2024 16:49:52 Result Notes None recorded. Problems Name Problem SNOMED Code Status Onset Date Resolution Date Notes Provider Name and Address Organization Details Recorded Time Disorder of shoulder 517380653 Active Not Available [facility] 3 16:25:57 Fracture of bone 305634858 Active Not Available [facility] 3 16:25:57 Disorder of trunk 784540254 Active Not Available [facility] 3 16:25:57 Pain of joint of wrist Active Not Available [facility] 3 16:25:57 Partial thickness rotator cuff tear Active Not Available [facility] 3 16:25:57 Osteoarth ritis of joint of hand 12215540 Active Not Available [facility] 3 16:25:57 Osteoarth ritis of hip 642640054 Active Not Available [facility] 3 16:25:57 Osteoarth ritis of knee 516603535 Active Not Available [facility] 3 16:25:57 Shoulder joint pain 348383922 Active Not Available [facility] 3 16:25:57 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 93328084 Active Not Available [facility] 3 16:25:57 Enthesopa thy of hip region 65891443 Active Not Available [facility] 3 16:25:57 Osteoarth ritis 964015622 Active Not Available [facility] 3 16:25:57 Pain of hip region 08128499 Active Not Available [facility] 3 16:25:58 Hyperchol esterolem ia 66996783 Active 2016 Not Available [facility] 3 16:25:57 Family history of malignant neoplasm 085093639 Active 2016 Not Available [facility] 3 16:25:57 Hypertens edu disorder 35776083 Active 2016 Not Available [facility] 3 16:25:57 Gastroeso phageal reflux disease 320254032 Active 2019 Not Available [facility] 3 16:25:57 Tubular adenomato us polyp of colon 453617520 Active 2021 colonosco py done 12/17/21- she had a >1 cm tubular adenoma at the distal ascending colon that was referred to [facility] Not Available [facility] 3 16:25:58 Pain of right knee joint 46174229081 4100 Active 2021 Not Available [facility] 3 16:25:58 Candidias is of skin 04201171 Active 2021 Not Available [facility] 3 16:25:58 Candidias is of mouth 85600541 Active 2021 Not Available [facility] 3 16:25:58 Tear of medial meniscus of knee 646173860 Active 2021 Not Available [facility] 3 16:25:57 Depressiv e disorder 79287830 Active 2021 Not Available [facility] 3 16:25:57 Generaliz ed abdominal pain 891389889 Active 2021 Not Available [facility] 3 16:25:57 Benign essential hypertens ion 4564985 Active 2021 Not Available [facility] 3 16:25:57 Seizure disorder 030299719 Active 2021 Not Available [facility] 3 16:25:57 Chronic obstructi ve pulmonary disease 78225914 Active 2021 Not Available [facility] 3 16:25:57 Syncope 882237485 Active 2021 Not Available [facility] 3 16:25:57 Pain in pelvis 15836469 Active 2021 Not Available [facility] 3 16:25:57 Pain of left hip joint 57241556553 9100 Active 2021 Not Available [facility] 3 16:25:57 Periphera l vascular disease 789411186 Active 2021 Not Available [facility] 3 16:25:58 Hypothyro idism 36692638 Active 2021 Not Available [facility] 3 16:25:58 Hyperlipi demia 98430810 Active 2021 Not Available [facility] 3 16:25:58 Impaired glucose tolerance 2230296 Active 2021 Not Available [facility] 3 16:25:58 Hypokalem ia 62067860 Active 2021 Not Available [facility] 3 16:25:58 Pain of right shoulder joint 50810284228 484443 Active 2021 Not Available [facility] 3 16:25:57 Neck pain 79693938 Active 2022 Not Available [facility] 3 16:25:58 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 072301943 Active 2022 Not Available [facility] 3 16:25:57 Pruritic rash 49825610 Active 2022 Not Available [facility] 3 16:25:58 Pain in left foot 88882202581 9107 Active 2022 Not Available [facility] 3 16:25:57 Vitamin D deficienc y 86784731 Active 2022 Not Available [facility] 3 16:25:57 Osteoporo sis 26880362 Active 2022 Not Available [facility] 3 16:25:58 Closed fracture of metatarsa l bone 51312330 Active 2022 Not Available [facility] 3 16:25:57 Closed fracture of metatarsa l bone 01734524 Active 2022 Jen Rider CMA null, [place] [facility] 3 11:57:41 Osteoarth ritis of right knee joint 30742387580 9100 Active 2022 ZEINAB Garcia null, [place] [facility] 3 08:32:21 Smoker 80565440 Active 2022 ANA Wilson [address] [facility], [facility] [address], [place], [address] , [facility] 3 10:56:02 Postmenop ausal bleeding 96550427 Active 2022 ANA Wilson [address], [address], [place], [address] , [place] [facility] [employer] [facility] 3 10:58:21 Acute dermatiti s 00263304 Active 2022 ANA Wilson [address], [address], [place], [address] , [place] [facility] 3 10:59:16 Liver enzymes level above reference range 190689434 Active 2022 ANA Wilson [address] [facility], [facility] [address], [place], [address] , [employer] [facility] [facility] 3 13:37:43 Ground glass opacity Active 2022 ANA Wilson [address] [facility], [facility] [address], [place], [address] , [employer] [facility] [employer] [facility] 3 11:53:16 Steatotic liver disease 177355769 Active 2022 ANA Wilson [address] [facility], [facility] [address], [place], [address] , [employer] [facility] 3 11:55:36 Notes:Some problems listed i n Document: #[id number] could not be added to this patient's chart. Please review this document and add these problems to the patient's chart manually as needed. Problem Notes None recorded. Procedures Surgical History Date Name Laterality Status Provider Name and Address Organization Details Recorded Time 07/19/20 23 Medicare Wellness CPT Code, subsequent completed April Kaplan RN [facility] [employer] [facility] 07/19/2023 10:27:11 04/09/20 23 Most Recent Bone Density completed ZEINAB Bhardwaj [employer] [place] [employer] [facility] 07/16/2023 12:11:34 08/14/20 22 Date of Last Mammogram completed ZEINAB Bhardwaj [employer] [place] [employer] [facility] 07/16/2023 12:11:41 02/07/20 22 Date of Last Colonoscopy completed Not Available [facility] 12/23/2022 04:42:07 10/25/19 15 Total hip arthroplasty completed Not Available [facility] 12/23/2022 04:42:13 10/25/19 13 Total hip arthroplasty completed Not Available [facility] 12/23/2022 04:42:13 Ablation completed Not Available [facility] 04:42:13 Imaging Results None [...] suspension for injection in office 07/[address] [facility]: 0003- 0494- 20 Not Available Not Available [...] administe red by the provider 02/[address] [facility]: 0409- 4276- 17 Not Available Not Available [...] %) injection solution in office 09/[address] [facility] 20203 -064- 01 Not Available Not Available Not [...] DateTime 01/03/2024 160.02 cm ZEINAB Garcia [facility] [email or web address] 01/03/2024 14:20:57 Date Recorded Body height Body mass index (BMI) Body weight Body temperature Heart rate Oxygen saturation Oxygen saturation in Arterial blood by Pulse oximetry Systolic And Diastolic Provider Name and Address Organization Details Last Updated DateTime 160.02 cm 31.9 kg/m2 47499.6 3 g 98.1 [degF] 83 /min 97 % 97 % 132/80 mm[Hg] April Kaplan RN [facility] 3 10:33:49 Date Recorded Body height Provider Name an d Address Organization Details Last Updated DateTime 07/30/2023 160.02 cm Gayla Leal [facility] 07/30/2023 08:51:36 Date Recorded Body height Provider Name an d Address Organization Details Last Updated DateTime 08/27/2023 160.02 cm Gayla Leal [facility] 08/27/2023 08:55:04 Date Recorded Body height Body temperature Body mass index (BMI) Body weight Heart rate Respiratory rate Oxygen saturation Oxygen saturation in Arterial blood by Pulse oximetry Systolic And Diastolic Provider Name and Address Organization Details Last Updated DateTime 160.02 cm 97.2 [degF] 33 kg/m2 20127.9 8 g 64 /min 16 /min 93 % 93 % 130/80 mm[Hg] [facility] 11:28:59 Social History Question Answer Notes LastModified by Organizat ion Details LastModified Time Tobacco Smoking Status Current Every Day Smoker Not Available [facility] 12/23/2022 04:06:30 Do You Have An Advance Directive? Yes MIGRATION.58442 86687 Information not available 12/23/2022 Are You Blind Or Do You Have Difficulty Seeing? Yes MIGR[employer]. 72310 Information not available 12/23/2022 What Is Your Level Of Caffeine Consumption? Occasional MIGRATION.92135 10079 Information not available 12/23/2022 How Much Tobacco Do You Chew? None MIGRATION.12450 46110 Information not available 12/23/2022 In The 14 Days Before Symptom Onset, Have You Had Close Contact With A Laboratory-confir med COVID-19 While That Case Was Ill? No MIGRATION.42080 91101 Information not available 12/23/2022 In The 14 Days Before Symptom Onset, Have You Had Close Contact With A Person Who Is Under Investigation For COVID-19 While That Person Was Ill? No MIGRATION.74956 39920 Information not available 12/23/2022 Are You Deaf Or Do You Have Serious Difficulty Hearing? Yes MIGRATION.64026 99936 Information not available 12/23/2022 What Type Of Diet Are You Following? REGULAR MIGRATION.13927 01945 Information not available 12/23/2022 Which Illicit Or Recreational Drugs Have You Used? None MIGRATION.85232 49414 Information not available 12/23/2022 Have There Been Any Changes To Your Family Or Social Situation? No MIGRATION.47681 52652 Information not available 12/23/2022 Are There Any Guns Present In Your Home? No MIGRATION.64874 33314 Information not available 12/23/2022 Do You Use Insect Repellent Routinely? No MIGRATION.72282 85625 Information not available 12/23/2022 Presence Of Domestic Violence No [email or web address] Information no t available 07/19/2023 Are You Able To Care For Yourself? Yes [email or web address] Information not available 07/19/2023 Are You Blind Or Do Yo Have Difficulty Seeing? Yes Reading Glasses Information not available 07/19/2023 Are You Deaf Or Do You Have Serious Difficulty Hearing? No [email or web address] Information not available 07/19/2023 General Stress Level? Moderate [email or web address] Information not available 07/19/2023 Live Alone Of With Others? Alone Information not available 07/19/2023 Do You Have A Medical Power Of Provider Enrollment Specialist? Yes Good Friend, Gaylanasrin Ruiz MIGRATION.41605 66652 Information not available 12/23/2022 What Was The Date Of Your Most Recent Tobacco Screening? 03/05/2021 MIGRATION.97283 02881 Information not available 12/23/2022 Do You Have Any Pets? Yes MIGRATION.38579 24871 Information not available 12/23/2022 What Is Your Relationship Status? Single MIGRATION.68882 11827 Information not available 12/23/2022 Do You Use Your Seat Belt Or Car Seat Routinely? Yes MIGRATION.71944 76703 Information not available 12/23/2022 Do You Have Smoke And Carbon Monoxide Detectors In Your Home? Yes MIGRATION.82322 63909 Information not available 12/23/2022 At What Age Did You Start Smoking Tobacco? 24 MIGRATION.25811 06773 Information not available 12/23/2022 Are You Passively Exposed To Smoke? Yes MIGRATION.54060 01321 Information not available 12/23/2022 Are There Any Smokers In Your House? Yes MIGRATION.86532 48962 Information not available 12/23/2022 How Much Tobacco Do You Smoke? 1 PPW MIGRATION.17112 27026 Information not available 12/23/2022 Do You Use Sunscreen Routinely? Yes MIGRATION.67307 82070 Information not available 12/23/2022 How Many Years Have You Smoked Tobacco? 25 MIGRATION.33579 93406 Information not available 12/23/2022 Have You Recently Traveled Abroad? No MIGRATION.97809 84402 Information not available 12/23/2022 Do You Have Difficulty Walking Or Climbing Stairs? Yes MIGRATION.04603 49054 Information not available 12/23/2022 Do You Have Any Dietary Restrictions? No MIGRATION.96018 17927 Information not available 12/23/2022 Sex: Female Functional Status Question Answer Note LastModified by MD [employer] ion Details LastModified Time Do you use any illicit or recreational drugs? No MIGRATION.943228 7490 Information not available 12/23/2022 Do you or have you ever used any other forms of tobacco or nicotine? No MIGRATION.802513 8732 Information not available 12/23/2022 What is your level of alcohol consumption? None MIGRATION.623810 0239 Information not available 12/23/2022 Do you or have you ever used smokeless tobacco? Never used smokeless tobacco MIGRATION.073512 5419 Information not available 12/23/2022 Do you have transportation difficulties? Yes MIGRATION.406281 8448 Information not available 12/23/2022 Are you able to walk independently without assistance or assistive devices? YESASSIST Information not available 07/19/2023 Do you have difficulty doing errands alone? No MIGRATION.470094 0117 Information not available 12/23/2022 Are you able to care for yourself independently? Yes MIGRATION.334793 9480 Information not available 12/23/2022 Do you have difficulty dressing, bathing, grooming, or toileting? No MIGRATION.863320 9788 Information not available 12/23/2022 Do you or have you ever used e-cigarettes or vape? Never used electronic cigarettes MIGRATION.288726 2783 Information not available 12/23/2022 What is your exercise level? None MIGRATION.551564 5150 Information not available 12/23/2022 Mental Status Question Answer Note LastModified by Organizat ion Details LastModified Time Do you have difficulty concentrating, remembering or making decisions? No MIGRATION.271957755 6 Information not available 12/23/2022 Family History Relationship Description Onset Age of this Age Resolved Age Notes LastModified by Organization Details LastModified Time Father Heart disease MIGRATION.136 [id number] Not available 12/23/2022 04:42:14 Father Hypertensive disorder MIGRATION.101 7765952 Not available 12/23/2022 04:42:14 Father Diabetes mellitus MIGRATION.051 5331530 Not available 12/23/2022 04:42:14 Mother Heart disease MIGRATION.861 7616836 Not available 12/23/2022 04:42:14 Mother Family history of malignant neoplasm MIGRATION.032 9027988 Not available 12/23/2022 04:42:14 Mother Diabetes mellitus MIGRATION.447 1305237 Not available 12/23/2022 04:42:14 Medical History Condition [...] high-dose, quadrivalent, PF 0 completed Not Available [facility] 05/03/2023 16:25:58 Pneumococcal conjugate PCV 13 0 completed Not Available [facility] 05/03/2023 16:25:58 Past Encounters Encounter ID Performer Location Encounter Start Date Encounter Closed Date Diagnosis/Indication Diagnosis SNOMED-CT Code Diagnosis ICD10 Code Diagnosis IMO Codes Diagnosis Note [id number] Ran Carney MD Matt_Per [facility] [address] [place] [address] 02/05/2021 00:00:00 02/10/2021 12:15:37 [id number] MD LIZETTE Oropeza_JILL [facility] [address] [facility] [facility] [address] [place] [address] 02/27/2021 00:00:00 03/02/2021 16:07:23 [id number] Ran Carney MD [facility] [place] [address] [place] [address] 03/05/2021 00:00:00 03/15/2021 22:29:08 [id number] ANA Wilson [facility] [place] [address] [place] [address] 03/17/2021 00:00:00 03/21/2021 18:02:04 [id number] Ran Carney MD [facility] [place] [address] [place] [address] 04/16/2021 00:00:00 04/16/2021 10:28:54 [id number] ANA Wilson [facility] [place] [address] [place] [address] 06/23/2021 00:00:00 06/23/2021 22:41:56 [id number] ANA Wilson [facility] [place] [address] [place] [address] 09/08/2021 00:00:00 09/23/2021 18:26:16 [id number] Ran Carney MD [facility] [place] [address] [place] [address] 01/14/2022 00:00:00 02/01/2022 17:50:53 [id number] Ran Carney MD [facility] [place] [address] [place] [address] 02/04/2022 00:00:00 02/04/2022 09:06:32 [id number] Ran Carney MD [facility] [place] [address] [place] [address] 02/20/2022 00:00:00 02/20/2022 09:19:09 [id number] Ran Carney MD [facility] [place] [address] [place] [address] 03/13/2022 00:00:00 03/13/2022 09:18:53 [id number] Kendall Magana MD [facility] [place] [address] [place] [address] 06/15/2022 00:00:00 06/21/2022 10:43:56 [id number] Ran Carney MD [facility] [place] [address] [place] [address] 09/25/2022 00:00:00 09/25/2022 10:14:07 [id number] Ran Carney MD [facility] [place] [address] [place] [address] 11/13/2022 00:00:00 11/22/2022 13:34:26 [id number] Ran Carney MD [facility] [place] [address] [place] [address] 12/11/2022 00:00:00 12/11/2022 09:22:01 [id number] Ran Carney MD [facility] [place] [address] [place] [address] 01/22/2023 10:02:11 01/25/2023 09:58:48 Partial thickness rotator cuff tear 588433577 M75.101 Neck pain 58017259 M54.2 Ulnar nerv e entrapment at elbow 302831604 G56.21 [id number] ANA Wilson [facility] [place] [address] [place] [address] 02/10/2023 13:59:07 02/10/2023 14:36:32 Pruritic rash 97624621 L28.2 Rx for steroid cream and nystatin as well to utilize both for different rashes. groin with jud that needs antifungal tx. steroid cream for buttock region. Hypothyroidism 54533343 E03.9 due for TFTs. not on supplement therapy. Hyperlipidemia 08615544 E78.5 on statin therapy, due for fasting lipids Impaired g lucose tolerance 3408830 R73.03 a1c due w/IGT hx Long-term drug therapy [id number] Z79.899 all routine bmp, lft and CBC labs due History of polyp of colon [id number] Z86.010 due for colonoscop y f/u screening [id number] MD [facility] [place] [address] [place] [address] 02/24/2023 08:28:05 02/24/2023 10:01:39 Pain in left foot [id number] 75472 M79.672 [id number] Ran Carney MD [facility] [place] [address] [place] [address] 03/03/2023 08:28:43 03/03/2023 09:08:55 Pain in left foot [id number] 56919 M79.672 [id number] Ran Carney MD [facility] [place] [address] [place] [address] 2023 08:45:18 2023 09:31:50 Pain in left foot [id number] 72061 M79.672 [id number] Ran Carney MD [facility] [place] [address] [place] [address] 04/02/2023 08:46:25 04/02/2023 09:14:02 Pain in left foot [id number] 16142 M79.672 [id number] Ran Carney MD [facility] [place] [address] [place] [address] 04/21/2023 08:32:44 04/23/2023 14:32:27 Closed fracture of metatarsal bone [id number] S92.315D [id number] Ran Carney MD [facility] [place] [address] [place] [address] 05/14/2023 08:47:32 05/14/2023 10:06:58 Closed fracture of metatarsal bone [id number] S92.315D [id number] Ran Carney MD [facility] [place] [address] [place] [address] 06/04/2023 08:42:16 06/04/2023 12:28:24 Closed fracture of metatarsal bone [id number] S92.315D [id number] Ran Carney MD [facility] [place] [address] [place] [address] 06/23/2023 08:24:05 06/23/2023 09:07:56 Osteoarthritis of right knee joint [id number] 49114 M17.11 [id number] Ran Carney MD [facility] [place] [address] [place] [address] 07/02/2023 08:48:50 07/05/2023 15:12:23 Closed fracture of metatarsal bone [id number] S92.315D [id number] ANA Wilson [facility] [place] [address] [place] [address] 07/19/2023 10:26:00 07/19/2023 11:22:00 Adult health examination [id number] Z00.00 mawe completed /routine f/u completed Screening for disorder [id number] Z13.9 Hypothyroidism 49760044 E03.9 due for TFTs. not on supplement therapy. Hyperlipidemia 57025585 E78.5 on statin therapy, due for fasting lipids Impaired g lucose tolerance 9514655 R73.03 a1c due w/IGT hx Long-term drug therapy 828211022 Z79.899 all routine bmp, lft and CBC labs due History of polyp of colon 713315459 Z86.010 Still due for 1 year f/u colonoscop y screening that is past due. ordered again Screening mammography 24 [id number] Z12.31 mammogram due in jul. Smoker 13246953 F17.200 LDCT scan ordered Osteoporosis 84672103 M8 1.0 UTD on dexa 2022 Vitamin D deficiency 347 68523 E55.9 refill vitamin D that was very low on ortho screening. Postmenopa usal bleeding 31782070 N95.0 refer to gyne promptly as she had occult PMB. Acute dermatitis 0701176 6 L30.9 Rx for steroid cream, prednisone taper, antifungal cream and doxy 100mg bid course to treat different derm rashes and lesions present on exam today. [id number] Ran Carney MD [facility] [place] [address] [place] [address] 07/30/2023 08:47:25 07/30/2023 09:53:07 Closed fracture of metatarsal bone 91357979 S92.315D [id number] Ran Carney MD [facility] [place] [address] [place] [address] 08/27/2023 08:52:42 09/06/2023 16:04:53 Closed fracture of metatarsal bone 48157612 S92.315D [id number] ANA Wilson [facility] [place] [address] [place] [address] 09/02/2023 11:22:54 09/02/2023 12:02:11 Ground glass opacity [id number] R91.8 refer to Pulmonary for f/u on ground glass opacity on LDCT Steatotic liver disease 179741498 K76.0 f/u LFT panel ordered to evaluate for any improvemen t in LFT with dietary changes. AST was 60 on jul labs. [id number] Ran Carney MD [facility] [place] [address] [place] [address] 01/03/2024 14:15:36 01/03/2024 17:01:29 Closed fracture of metatarsal bone 05097745 S92.315D Health Concerns Section Related Observation LastModified by Organization Detai ls LastModified Time None Recorded Concern Status LastModified by Organization Details LastModified Time None Recorded Advance Directives Directive Y: Payers Insurance Date Sequence Insurance Name Policy Number Policy Thomas Covered Member ID Thomas Member ID Guarantor Name 03/23/2023 [employer] [facility] [employer] Yajaira Solo 01/03/2024 1 [facility] (MEDICARE REPLACEMENT/ ADVANTAGE - HMO) [id number] Yajaira Solo [id number] Yajaira Solo Notes Date Note Type Note Provider Name and Address Organization Details Recorded Time 3 text/html HypertensionReported by PatientHPIFor onset/timing, patient reportsbetter. For associated symptoms, patient reportsno shortness of breath,no fatigue,no palpitations,no decline in exercise capacity, andno snoring. Anxiety/DepressionReporte d by PatientHPIFor severity, patient reportsdenies suicidal ideations,able to maintain relationships, anddoes not interfere with activities of daily living. For context, patient reportsno major life stressors. For associated symptoms, patient reportsdenies homicidal ideations,no significant weight gain,no significant weight loss,no visual/auditory hallucinations,no delusions, andno shortness of breath. Reflux/GERDReported by PatientHPIFor severity, patient reportsimproving. For context, patient reportsnon-smoker,no drug/alcohol abuse,no drug alcohol withdrawal, andnot related to food/drink. For associated symptoms, patient reportsno frequent coughing,no feeling of fullness/mass in throat,no hoarseness,no food getting stuck,no belching/burping,no vomiting,not vomiting blood,no regurgitation,no shortness of breath,no chest pain,no heartburn,no difficulty swallowing,no pain when swallowing,no bad taste,no decreased appetite,no weight loss,no black/tarry stools,no fatigue, andno throat pain. She has multiple CCM from 04/23/23,05/27/23, 05/28/23,06/07/23 & 07/12/23. Also has a med recall notification in your bucket for review. ANA Wilson [address] [facility], [facility] [address], [place], [address], [facility] [employer] 07/20/2023 14:20:32 3 text/html patient returns. She is here for a [...] the situation. Ran Carney MD [address] [facility], [place], [address], [employer] 09/06/2023 15:42:37 3 text/html Generic HPI TemplateReported by PatientPt is here to discuss her lab results regarding her liver enzymes. Also, while she is here she does need a pulm referral for her lungs. LDCT scan chest show some coronary calcifications ; Her right lung does have some ground glass opacities present that could be inflammation and follow up is recommended on that. ANA Wilson [address] [facility], [place], [address], [employer] 09/22/2023 23:02:08 4 text/html patient returns now a little less than [...] alignment. Ran Carney MD [address], [facility] [address], [place], [address], [employer] [facility] 01/03/2024 16:56:42 OBGyn Episode No OBEpisode recorded.
--- OUTSIDE RECORDS SUMMARY | 2025-08-06 15:33 | XMS_ITS | Clinical Summary ---
Author Organization [facility] Address [address] [place] [address] Phone Care Team Providers Care Imaging Services Director Name Role Phone Nahed Ceballos Primary Care Provider [phone] Allergies No known active allergies Medications lovastatin [...] times daily. 03/08/2019 Active ergocalciferol (VITAMIN D) 21123 UNIT Capsule Take 1 Cap by mouth [...] Insurance MEDICAID [employer] Care Teams Imaging Services Director Relationship Specialty Start Date End Date Nahed Ceballos PA [address] [address] PCP - General Adult Medicine 03/01/19
[2025-08-06] MEDS: PERFLUTREN LIPID MICROSPHERES 1.5 ML VIAL DILUTED TO 10 ML TOTAL VOLUME IV PUSH (15:45)
--- NOTE | 2025-08-06 16:00 | IVDEFINITY ---
Prior to administration of IV Definity the patient was educated on the risks and benefits of the imaging enhancing agent including potential adverse side effects. The patient verbalized understanding. Allergies were verified. No exclusion criteria were identified and at least one of the following inclusion criteria were met: 1) physician request, 2) patient technically difficult to image (per the [place] [employer] Echocardi[employer] guidelines of two or more segments not discernable within the apical view), or 3) questionable left ventricular function. ?
== END 2025-08-06 14:26 | disposition home or self-care (01) ==
LOC: ANHCARD 14:31
PROVIDERS: PCP Physician Assistant; Visit Provider Internal Medicine Cardiovascular Disease
DX: R93.1 Abnormal findings on diagnostic imaging of heart and coronary circulation (principal); I51.9 Heart disease, unspecified
CPT/HCPCS: C8929; Q9957

== ENCOUNTER 2025-08-15 09:49 | Outpatient (CLI) | payer MEDICARE, SELFPAY ==
--- NOTE | ~2025-08-15 | CT_ITS ---
CT abdomen pelvis w con Clinical History: Generalized abd pain . Comparison: None Technique: Axial images lung bases to symphysis pubis IV contrast information not listed in PACS Coronal, sagittal reformats CT images acquired with automatic exposure control for dose reduction DLP: 964 mGy-cm Findings: Lung bases: Incompletely seen atelectasis or airspace disease within lingula. Visualized heart and pericardium: Unremarkable. Liver: Steatosis. Gallbladder: Unremarkable. Spleen: Unremarkable. Pancreas: Unremarkable. Adrenal glands: Unremarkable. Kidneys: Right kidney- No hydronephrosis. No renal stones. Left kidney- No hydronephrosis. No renal stones. Tiny probable cyst. Distal esophagus/stomach: Small hiatal hernia. Small bowel loops: Normal caliber and wall thickness. Colon: Diverticula. Normal caliber and wall thickness. Appendix not seen. Nodes: No enlarged nodes. Peritoneum: No ascites. No free air. Urinary bladder: Unremarkable. Uterus: Unremarkable. Adnexa: No masses. Bones: No acute bony abnormality. Soft tissues: Small umbilical hernia with fat. Aorta: No aneurysm or dissection. Atherosclerotic disease. IVC: Unremarkable. Left common iliac vein stent. Main portal vein/SMV/splenic vein: Patent. IMPRESSION: 1. No acute findings within abdomen or pelvis. 2. Small incompletely seen atelectasis and/or airspace disease within left lung base. 3. Other findings as above. Reviewed, dictated and finalized at location R. IMPRESSION: 1. No acute findings within abdomen or pelvis. 2. Small incompletely seen atelectasis and/or airspace disease within left andrew g base. 3. Other findings as above.
[2025-08-15 10:16] LABS: Estimated Glomerular Filt Rate 49
== END 2025-08-15 09:50 | disposition home or self-care (01) ==
PROVIDERS: PCP Physician Assistant; Visit Provider Physician Assistant
DX: K44.9 Diaphragmatic hernia without obstruction or gangrene (principal); K42.9 Umbilical hernia without obstruction or gangrene; K76.0 Fatty (change of) liver, not elsewhere classified; J98.11 Atelectasis
CPT/HCPCS: 74177; Q9967